=== PATIENT | male | born 1960 | race Caucasian/White ===

== ENCOUNTER 2017-12-03 05:49 | Day surgery (SDC) | payer OTHER, SELFPAY ==
[2017-12-03] VITALS (9 sets, daily range): BP systolic 105–166; BP diastolic 53–94; PULSE 47–62; RESP 16–18; TEMP 36.2–36.6; O2SAT 92–100; BMI 47.3
--- NOTE | 2017-12-03 | GALL_PTH ---
PATIENT: GISELE TORIBIO LOC: [facility] – [place] U#:[id number] AGE/SX: 57/M ROOM: RE12/03/[address]: Dr. Alexandra Robles MD : 1960 BED: DIS: 12/03/2017 SPEC #: [id number] RECD: 12/03/17 14:13 STATUS: DEBBIE DAVID #: [id number] DAVIDE: 12/03/17 00:[address]: Alexandra Robles DEPT: SURGICAL PATHOLOGY RECD BY: Lucian Cole ENTERED: 12/03/17 14:13 SP TYPE: SHELLY SAUCEDO DR: Dr. Abimael Metcalf, Tissues: Gallbladder, NOS Procedures: Surgery Specimen Level III HEADER OPERATION: Laparoscopic cholecystectomy PRE-OP DIAGNOSIS: Abnormal biliary HIDA scan; right upper quadrant pain TISSUE SUBMITTED: Gallbladder MICROSCOPIC DIAGNOSIS Gallbladder, cholecystectomy: Chronic cholecystitis. AM:francesco 12/04/17 MICROSCOPIC DESCRIPTION Slides are reviewed. GROSS DESCRIPTION Received is one container labeled with the patient's name and designated gallbladder. The specimen consists of a gallbladder measuring 7 cm in length and up to 3 cm in diameter. The external surface is pink-corrigan, smooth and glistening for the most part. Focally it is granular, hemorrhagic and contains cautery artifact. The gallbladder contains green-yellow mucoid bile. No stones are identified in the container or I the gallbladder. The mucosa is bile-stained and without any mass lesions. The gallbladder wall measures up to 0.2 cm in thickness. External Auditor sections from the gallbladder and the cystic duct are submitted in one cassette. / SJ:rg 12/03/17 TC:3 CPT: 11956
[2017-12-03 06:51] LABS: Hematocrit 38.9 % (40-54); Hemoglobin 12.7 g/dl (13.0-16.5); Mean Corp Hgb Conc 32.6 g/gl (32-36); Mean Corpuscular Hgb 27.6 pg (27.0-32.0); Mean Corpuscular Volume 84.6 fL (80-94); Mean Platelet Vol. 9.4 fl (6.2-12.0); Platelet Count 186 K/mm3 (150-450); RBC Distribution Width CV 13.7 % (11.6-14.6); RBC Distribution Width SD 41.9 fl (35.1-43.9); White Blood Count 4.3 K/mm3 (4.4-11.0)
[2017-12-03 07:01] LABS: Scan Indicated on CBC? Y/N NO
[2017-12-03] MEDS: Bupiv/Epi 0.5% Mpf 30 ML Vial (08:30)
--- NOTE | 2017-12-03 09:32 | PCM.IMDPSTOP ---
Immediate Post-Op Note Date of Procedure: 12/03/17 Primary Surgeon/Physician: Alexandra Robles licensed prosthetist/orthotist: Rosanna Slater Pre-Operative Diagnosis: biliary dyskinesia Post-Operative Diagnosis: same Surgery/Procedure Performed:: laparoscopic cholecystectomy Description of Surgical Findings:: could not do cholangiogram due to patient's body habitus, small gallbladder Estimated Blood Loss: 30 ml Specimen's removed: gallbladder and contents Type of Anesthesia:: General - Admit VTE Documentation VTE Present on Admission: Yes VTE Mechan Device Prophylaxis: SCD's
--- NOTE | 2017-12-03 09:34 | OP.PCM_ITS ---
Report of Operation Date of Procedure: 12/03/17 Pre-Operative Diagnosis: biliary dyskinesia Post-Operative Diagnosis: same Surgery/Procedure Performed:: laparoscopic cholecystectomy Description of Surgical Findings:: could not do cholangiogram due to too small a lumen and patient's body habitus, small gallbladder human resources support specialist: Rosanna Slater Type of Anesthesia:: General Anesthesiologist: Carlos Jacobs Specimen's removed: gallbladder and contents Estimated Blood Loss (mL): 30 ml Fluids Replaced: 1600 ml RL Description of Procedure: After informed consent was given, the patient was brought to the Operating Room. Appropriate time out protocol was followed. The patient was then placed under general endotracheal anesthesia. The abdomen was then prepped with a sterile surgical skin preparation and sterile surgical drapes were placed. A skin fold superior to the umbilicus was grasped with penetrating clamps and the skin and subcutaneous tissues were infiltrated with 0.5% marcaine with epinephrine. A skin incision was then made with a 15 blade scalpel. The anterior abdominal wall was elevated and a Veress needle was carefully inserted into the intraabdominal cavity. It was checked to be in the proper position with a normal saline drop test. A CO2 pneumoperitoneum was then created. Once this was achieved, then the Veress needle was removed and an 11mm trocar was placed in its stead. A 10mm laparoscope was then inserted into the trocar and careful attention was directed to the intraabdominal contents. There was no evidence of injury to any intraabdominal organs from insertion of the Veress needle or the trocar. Under direct visualization, a 5mm subxiphoid trocar and two lateral 5mm right subcostal trocars were placed. The skin and subcutaneous tissues at these sites were infiltrated with 0.5% marcaine with epinephrine prior to placement of these trocars. Attention was then directed to the right upper quadrant of the abdomen. Graspers were placed in the lateral trocars to grasp the distal aspect of the gallbladder and direct it cephalad and to grasp the gallbladder at Puckett?s pouch and direct it laterally. Dissection then began on the proximal gallbladder continuing down to the area of the triangle of Calot to bluntly dissect out the cystic duct. The periomental fat obscured this area and therefore another 5mm trocar was placed under direct visualization inferior to the subxiphoid trocar. A grasper was placed in this trocar site to retract the intraabdominal fatty tissues. The neck of the gallbladder was identified and blunt dissection continued to dissect out a segment of the cystic duct. A clip was then placed on the neck of the gallbladder. A small ductotomy was then made. The lumen was noted to be too small to pass a catheter, and therefore no IOC was done. Two clips were placed proximally and one distally and the cystic duct was then transected. The cystic artery was visualized and bluntly isolated and then two clips were placed proximally and one clip distally and then it was transected between the proximal and distal clips. The gallbladder was then from the liver bed using electrocautery and thus able to be brought out of the umbilical port via an Endobag. It was then forwarded to pathology for analysis. The liver bed was carefully examined. There was no evidence of bile leakage or bleeding. The cystic duct stump and cystic artery stump had their clips intact and there was no evidence of bile leakage or bleeding. The remainder of the abdomen was grossly normal. The CO2 was released and all trocars removed intact. The periumbilical fascia was approximated with a [id number] 0 vicryl suture. All skin incision were closed with 4-0 monocryl in a subdermal fashion. Cavilol and Steristrips were used to reinforce the skin closure. Sterile dressings were applied to all wounds. The patient was extubated and brought to the Recovery Room in stable condition. - Complications none noted - Admit VTE Documentation VTE Present on Admission: Yes VTE Mechan Device Prophylaxis: SCD's
--- NOTE | 2017-12-03 09:34 | PCM.DC.GB ---
Discharge Diet: No Restrictions Discharge Activity: Return to Normal Activity, May not drive while taking narcotic pain medications. Lifting Restrictions: no lifting greater than 20 pounds for two weeks Call your doctor if your incision/area has: Continuous Slow Oozing, Foul Smelling Discharge Call your doctor if you observe: Fever of 101 or Higher Additional Dressing/Incision Instructions:: Leave dressings in place. May get wet in shower. Do not soak - no tub baths/swimming Allergies/Adverse Reactions: Allergies No Known Allergies Allergy (Verified 11/26/17 09:31) Medications to take at Discharge Aspirin [Aspirin, Baby] 81 mg PO DAILY@0800 11/26/17 Cholecalciferol (Vitamin D3) [Vitamin D3] 1,000 unit PO DAILY 11/26/17 Esomeprazole Mag Trihydrate [Nexium] 40 mg PO DAILY 11/26/17 Lactobac 41/B.bifid,Lactis/Fos [Ultimate Probiotic-10 25 Billn] 1 each PO DAILY 11/26/17 Lidocaine/Aloe Vera [Aloe-Lidocaine 0.5% Gel] 227 gm TP PRN PRN 11/26/17 Lisinopril [Zestril] 20 mg PO DAILY 11/26/17 Loratadine [Claritin] 10 mg PO DAILY 11/26/17 Melatonin 5 mg PO QHS 11/26/17 Mometasone Furoate [Nasonex] 2 spray NASAL DAILY 11/26/17 Montelukast [Singulair] 10 mg PO DAILY 11/26/17 Naproxen [Naprosyn] 250 mg PO BID 11/26/17 Dodson-3/Dha/Epa/Dpa/Fish Oil [Dodson-3 2100 Softgel] 1 each PO DAILY 11/26/17 Sertraline HCl [Zoloft] 25 mg PO DAILY 11/26/17 Tamsulosin HCl [Flomax] 0.4 mg PO DAILY 11/26/17 Vitamin B Complex Vit C No.3 [B Complex with Vitamin C] 1 each PO DAILY 11/26/17 Primary Care Physician: Abimael Metcalf DO [Primary Care Provider] - Test Results: Test results from this visit will be discussed in further detail at your follow-up appointment, if applicable. Please Follow Up With: Alexandra Robles MD - call When: to be seen in 10-14 days, please call for date and time, thank you
--- NOTE | 2017-12-04 10:10 | PCM.HP.BLA ---
History and Physical Date of Admission: 12/03/17 Stephane Redmond 1960 ? ? REFERRING PHYSICIAN: Abimael Metcalf, DO ? CHIEF COMPLAINT: abnormal us ? HPI: The patient is a 57 year old male presents with back pain around the first of August and then noted right upper quadrant/epigastric abdominal pain. Not related to foods that he had been eating. Notes a burning sensation of the right upper quadrant. Occasional sharp pains in the area. States that he is unable to lie on the left side, as pain gets worse. Had an episode of constipation but this has resolved. Denies fevers. Now the pain is more constant in the past week. HIDA scan 10/26/17 revealed ejection fraction of 34.5% (normal is 35%) Denies biliary obstructive signs/symptoms. ? ? PAST MEDICAL HISTORY: GERD Morbid obesity BMI 47 Obstructive sleep apnea Left dmuont's neuroma ? ? PAST SURGICAL HISTORY: Colonoscopy 2010 Right ORIF wrist 2009 [place] teeth extraction Excision of lipoma Left finger pin for injury 2014 ? ? PAST INJURIES Denies head injuries, wrist and finger fracture ? ? MEDICATIONS sertraline (ZOLOFT) 25 mg tablet Take 25 mg by mouth once daily. tamsulosin ER (FLOMAX) 0.4 mg cap Take 0.4 mg by mouth. montelukast (SINGULAIR) 10 mg tablet Take 10 mg by mouth daily at bedtime. esomeprazole (NEXIUM) 40 mg capsule Take 40 mg by mouth DAILY (6 AM). melatonin 5 mg tablet Take 5 mg by mouth. loratadine (CLARITIN) 10 mg tablet Take 10 mg by mouth once daily. mometasone (NASONEX) 50 mcg/actuation nasal spray Use 2 Sprays in the nose once daily. naproxen (NAPROSYN) 250 mg tablet Take 250 mg by mouth twice daily with meals. vitamin B complex vit C no.3 (VITAMIN B COMP AND C NO.3 ORAL) Take by mouth. Cholecalciferol, Vitamin D3, (VITAMIN D-3) 2,000 unit cap Take by mouth. omega-3/dha/epa/dpa/fish oil (OMEGA-3 2100 ORAL) Take by mouth. multivitamin tablet Take 1 tablet by mouth once daily. Lactobac no.41/Bifidobact no.7 (PROBIOTIC-10 ORAL) Take by mouth. Aloe-Lact Ac-Ceramide 3,3B,6,1 1 % crea Apply to affected area. aspirin, enteric coated (ASPIRIN, ENTERIC COATED) 81 mg EC tablet Take 81 mg by mouth once daily. lisinopril (ZESTRIL, PRINIVIL) 20 mg tablet Take 20 mg by mouth once daily. ? ? ALLERGIES: Patient has no known allergies. ? ? PERSONAL HISTORY: Social History Marital status: Spouse name: Social History Denies TOB use Drug use: Unknown ? FAMILY HISTORY: No gallbladder disease in the family. ? ? REVIEW OF SYSTEMS: General: The patient denies fatigue, denies weight loss, denies weight gain, denies feeling hot, and denies feelings of cold. Eyes: The patient denies glaucoma, denies eye injury/surgery, wears glasses or contacts. Ear/Nose/Throat: The patient NOTES allergies, denies hayfever, denies ear infections, and denies bloody noses. Cardiovascular: The patient denies chest pain, denies heart disease, denies high blood pressure,denies cardiac stent, denies prior heart attack, denies irregular heart beat, denies high cholesterol, denies poor circulation, denies heart failure, other cardiac issues, denies claudication, denies cold feet, denies peripheral arterial stent. Respiratory: The patient denies tuberculosis, denies pneumonia, denies frequent cough, denies pulmonary embolism, denies shortness of breath, and denies coughing up blood. Gastrointestinal: The patient denies difficulty swallowing, NOTES acid reflux, denies ulcers, denies vomiting, denies jaundice/hepatitis, NOTES gallbladder problems, denies black or tarry stools, denies hemorrhoids, denies bleeding from rectum, denies diverticulitis, denies constipation, denies diarrhea, denies loss of stool control, and denies hernias. Kidney/Bladder: The patient denies kidney stones, denies urine infections, and denies bloody urine. Skin: The patient denies a history of skin cancer, denies bleeding/changing moles, and denies a history of skin rash. Neurologic: The patient denies a history of epilepsy/convulsions, denies headaches, denies head/spinal injuries, and denies stroke/TIA. Psychiatric: The patient denies psychiatric medications, denies depression, and denies voices, denies substance abuse. Endocrine: The patient denies thyroid disorders, denies diabetes, and denies hormonal problems. Hematologic: The patient denies a history of bruising, denies bleeding, and denies anemia, denies blood clots. Infections: The patient denies a history of measles and mumps, denies rheumatic fever, and denies sexually transmitted diseases. Musculoskeletal: The patient denies back pain/injury, denies back problems, denies sciatica, denies knee/foot trouble, denies arthritis, or denies gout. ? PHYSICAL EXAMINATION: General: The patient is 57 year old male, well nourished, well hydrated in no acute distress. The patient is oriented to time, place, and person. VITALS: Blood pressure 150/70, pulse 66, height 177.8 cm (5' 10), weight (!) 149.2 kg (329 lb). Body mass index is 47.21 kg/m?. Head Normocephalic. EOM intact with sclera clear and no icterus noted. Wearing glasses. Mouth with mucus membranes moist. Neck - supple with no jugular venous distention noted. Trachea is midline. No carotid bruits noted. Lungs clear to auscultation. Normal breath sounds. No rales/rhonchi/wheezing noted. No labored breathing noted, such as retractions. Heart normal S1 and S2 auscultated. No rubs/clicks/murmurs noted. Regular rate. Abdomen soft and benign. Normal bowel sounds. Tender in right upper quadrant and epigastrium, no peritoneal signs noted. Difficult to determine if any masses or organomegaly due to body habitus. Extremities no calf tenderness noted. No pitting edema noted. Skin normal skin integrity. Neurological gait normal, no focal deficits noted Psych calm and appropriate ? ? IMPRESSION: biliary colic, low EF by NM HIDA scan ? PLAN: I have discussed the above with the patient and his who is present with him. I have offered laparoscopic cholecystectomy, possible cholangiograms However, I have counseled patient that this may not entirely alleviate his symptoms, as his ejection fraction is only slightly below normal at 34.5%. However, his symptoms can be attributed to biliary colic. I have explained the procedure to the patient. I have counseled the patient as to the risks of the procedure, including but not limited to: infection, bleeding, injury to any blood vessels/nerves, scar tissue, injury to any intraabdominal organs, injury to bowel/bladder, injury to the common bile duct/biliary tree, bile leakage, intraabdominal abscess/bleeding, hernias at incisional sites, wound infections, non resolution of symptoms, complications of anesthesia, etc. the patient understands. The patient wishes to proceed. I have answered all questions to the patients satisfaction and the patient has no further questions. . Diagnoses: (R94.8) Abnormal biliary HIDA scan (primary encounter diagnosis) (R10.11) Right upper quadrant abdominal pain (E66.01) Morbid obesity (HCC)
== END 2017-12-03 15:56 | disposition home or self-care (01) ==
LOC: SDC 05:49 → AC 05:51
PROVIDERS: Anesthesiology; Family Provider Family Medicine; PCP Family Medicine; Visit Provider Surgery
PROC: (CPT 47610; principal; 2017-12-03 07:10)
DX: K81.1 Chronic cholecystitis (principal); F41.9 Anxiety disorder, unspecified; K21.9 Gastro-esophageal reflux disease without esophagitis; K58.9 Irritable bowel syndrome, unspecified; I10 Essential (primary) hypertension; Z79.899 Other long term (current) drug therapy; Z79.82 Long term (current) use of aspirin; G25.81 Restless legs syndrome; G47.33 Obstructive sleep apnea (adult) (pediatric); E66.01 Morbid (severe) obesity due to excess calories; Z68.42 Body mass index [BMI] 45.0-49.9, adult; Z71.3 Dietary counseling and surveillance
CPT/HCPCS: 47562; 36415; 85027; 88304; 93005; J7120

== ENCOUNTER 2022-02-06 16:30 | Outpatient (RCR) | payer OTHER, SELFPAY ==
--- NOTE | 2021-12-26 17:39 | HP.PTEVAL_ITS ---
Patient's Visit Information GISELE TORIBIO is a 61 year old M referred to Physical Therapy by Dr. Abimael Metcalf DO with a diagnosis of R shoulder pain, biceps tendonitis. Date of Evaluation: 12/26/21 Physical Therapist: Raz Bridges, DPT, OCS, CSCS - Visit Plan Frequency: 2-3x /Week Duration: 4-6 Weeks Plan: 3x/week to start for US nonthermal to R biceps tendon, grade 1-2 mobs, ensure activitiy modificaiton, progress to Rc and postural strength and pec stretches. ice as needed. - Subjective R arm and shoulder hurt. It has hurt for a couple years on and off but much worse in the last month where it aches at rest. Intermittent previously but more constant now in anterior lateral shoulder and upper arm. it gets to 5/10. Lifting [place] or behind back can make him worse. Not sure why last month is worse. No numbness or tingling in arm. it is often painful at rest. Sleep is interrupted if he rolls on right side. Is on acetominophen and naproxen for hand arthritis and takes extra naproxen which helps. 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 Drivinjg is not a big problem. Basic ADLs are getting done, but putting belt on behind him can hurt. Hobbies is gardening and is able to be done but it hurts. None as far as exercise goes. Wants to rodriguez and is right handed and not surre he could hold the gun. - Pain R shoulder Pain Intensity (Out of 10): 2 Pain Intensity Range: 0, 5 - Objective Posture is forward head and anterior scap. Biceps tendon max tender R at groove and subscap min tender. + HK and neer impingement test R. + speeds and bicep test, + pain resisted supination R. - ext rotation lag and drop arm test. - sulcus test. - apprehension test. AROM R shoulder WFL but pain end range flexion, and IR/ER. strength is 4/5 R shoulder IR/ER with pain on IR, 4+ biceps and triceps and pain with biceps R. wrist and hand 4/5 without pain except supination R. reflexes 2/3 biceps and triceps. Sensation WNL to gross light touch in UE. - Balance/Special Test Scores Quick DASH Score: 36.3625 - Goals Goal 1:: Pain free at rest Goal Time Frame: 2 Weeks Goal 2:: LT: Fiull UE AROM r without increased pain Goal 3:: I approp management /HEP for shoulder pain Goal Time Frame: 4-6 Weeks Goal 4:: Patient feel 80% improved in overall pain at 1/10 at worst. Goal Time Frame: 4-6 Weeks Goal 5:: Quickdash score of 15 or less Goal Time Frame: 4-6 Weeks - Rehabilitation Potential Physical Therapy Diagnosis: r biceps tendonitis Rehabilitation Potential: Good - Anticipated Interventions Patient/Client Instruction: Educate patient on: Condition, Plan of Care For the Purpose of:: To decrease pain, To increase ROM, To improve muscle performance and motor function, To increase tolerance to activity/condition/position, To improve ability of physical actions for home/community/work/leisure Therapeutic Exercise to Include: Strength training, Passive ROM, Active ROM, Scapular Strength/Stabilization For the Purpose of:: To decrease pain, To increase ROM, To improve muscle performance and motor function, To increase tolerance to activity/condition/position, To improve gait and locomotor functions Manual Therapy Techniques to Include: Mobilization, Passive ROM, Soft tissue mob ilization For the Purpose of:: To decrease pain, To improve nutrient delivery to tissue, To improve muscle performance and motor function Cryotherapy (ice pack, ice massage): Yes Ultrasound (thermal/non thermal): Yes For the Purpose of:: To decrease pain Thank you for the opportunity to evaluate your patient. For Medicare and Medicare HMO plans, please review the plan of care and approve it. It will need to be FAXED BACK to us at [phone] for Medicare purposes. For Medicare only, by signing this I certify the plan of care. Please let me know if there are questions or concerns regarding this plan of care. Physician Signature: Date:
--- NOTE | 2022-03-24 08:17 | HP.PTDCSUM ---
It has been my pleasure to treat GISELE TORIBIO referred by Dr. Abimael Metcalf DO, with the diagnosis of R shoulder pain, biceps tendonitis for a total of 9 visit(s). Discharge Date: 02/06/22 Please see the following information for a summary of their discharge status. Subjective: Doing well. It hurts at times. Slouching can hurt. Pain this week has been 2/10 while doing something and for short duration to an hour. Sleeping is OK. HEP going well daily 3x20. Scheduled to see in March. R shoulder Pain Intensity (Out of 10): 3 % Improvement: 90 Objective/Function: Full aROM, just some slight discomfort transiently at end range of IR adn flexion. strength 4 R er flexion and abd and 4+ L, others 4+ symmetrically. Goal 1:: Pain free at rest Goal Progress: Goal Met Goal 2:: LT: Fiull UE AROM r without increased pain Goal Progress: Goal Met Goal 3:: I approp management /HEP for shoulder pain Goal Progress: Goal Met Goal 4:: Patient feel 80% improved in overall pain at 1/10 at worst. Goal Progress: Progressing Goal 5:: Quickdash score of 15 or less Goal Progress: Progressing Plan: d/c to HEP If there are questions or concerns regarding this patient's physical therapy, please feel free to call me at [phone]. Thank you for the referral of this patient. Sincerely, Raz Bridges, DPT, OCS, CSCS Balance/Gait/Functional tests - Balance/Special Test Scores Quick DASH Score: 20.4525
== END 2022-02-06 19:00 | disposition home or self-care (01) ==
LOC: PT 16:30
PROVIDERS: PCP Family Medicine; Referring Provider Family Medicine; Visit Provider Family Medicine
DX: M75.21 Bicipital tendinitis, right shoulder (principal); M75.51 Bursitis of right shoulder; M75.81 Other shoulder lesions, right shoulder
CPT/HCPCS: 97035; 97110; 97161; 97164; 97530

== ENCOUNTER → 2024-08-25 | Outpatient (CLI) | payer OTHER, SELFPAY ==
[2024-08-25 17:50] LABS: Absolute Lymphocyte Count 2.11 X10^3/uL (0.83-4.51); Absolute Neutrophil Count 2.8 X10^3/uL (2.0-7.7); Basophil# 0.03 X10^3/uL; Basophil% 0.6 % (0-1); Eosinophil# 0.14 X10^3/uL; Eosinophils% 2.6 % (0-5); Hematocrit 39.4 % (40-54); Hemoglobin 13.1 g/dL (13.0-16.5); Lymphocyte # 2.11 X10^3/ul (0.83-4.51); Lymphocyte % 38.8 % (19-41); Mean Corp Hgb Conc 33.2 g/dL (32-36); Mean Corpuscular Hgb 29.3 pg (27.0-32.0); Mean Corpuscular Volume 88.1 fL (80-94); Monocyte# 0.37 X10^3/uL; Monocyte% 6.8 % (0-10); NRBC Flagged by Analyzer 0 % (0-5); Neutrophil # 2.78 X10^3/uL (2.7-7.7); Platelet Count 214 K/mm3 (150-450); RBC Distribution Width CV 11.8 % (11.6-14.6); RBC Distribution Width SD 37.8 fl (35.1-43.9); Red Blood Count 4.47 M/mm3 (4.6-6.2); White Blood Count 5.4 K/mm3 (4.4-11.0)
[2024-08-25 18:16] LABS: Anion Gap 11 (5-15); BUN 19 mg/dL (4-19); BUN/Creat Ratio 15.6 RATIO (10-20); Calcium,Total 9.6 mg/dL (7.6-11.0); Carbon Dioxide 21.8 mmol/L (21.0-32.0); Chloride 106 mmol/L (98-108); Creatinine, Serum 1.24 mg/dL (0.70-1.20); EST Glomerular Filtration Rate 65 (>60); Glucose 113 mg/dL (70-99); Potassium 4.3 mmol/L (3.3-5.1); Sodium Level 139 mmol/L (133-145)
== END | disposition home or self-care (01) ==
LOC: MTLAB 16:01
PROVIDERS: PCP Family Medicine; Referring Provider Specialist; Visit Provider Specialist
DX: Z01.818 Encounter for other preprocedural examination (principal); Z01.810 Encounter for preprocedural cardiovascular examination
CPT/HCPCS: 36415; 80048; 85025

== ENCOUNTER 2024-10-05 08:23 | Outpatient (RCR) | payer OTHER, SELFPAY ==
[2024-10-05 10:26] VITALS: BP 139/84; PULSE 61; RESP 18; TEMP 36.4
--- NOTE | 2024-10-05 12:10 | PCM.WC.HP ---
History of Present Illness Date of Service: 10/05/24 Chief Complaint: Right calf nonhealing wound History of Wound: This is a 63-year-old white male who states when he was a teenager he was in an [place] and got a thorn in his right calf and over the years part of it had come out but he feels like it is never healed. Though then he says about 3 months ago he felt that this really developed into something and now he wants to have a total knee and they will not touch him until he gets this taking care of. It is a scabbed area with some erythema around it it is sore to palpate and pressing down hard no foreign body can be felt by palpation. Patient has the certain insurance that were not allowed to debride on the first visit we can only look and see. [facility] Home Medications Medication Instructions Recorded Last Taken Type Lactobacillus 1 ea PO DAILY 11/26/17 Unknown History 41-B.animalis,bifid-FOS 111 mg (25 billion cell) capsule (Ultimate Probiotic-10) aspirin 81 mg chewable tablet 81 mg PO DAILY@0800 11/26/17 Unknown History cholecalciferol (vitamin D3) 25 1,000 unit PO DAILY 11/26/17 Unknown History mcg (1,000 unit) capsule (Vitamin D3) esomeprazole magnesium 40 mg 40 mg PO DAILY 11/26/17 12/03/17 04:45 History capsule,delayed release (Nexium) 40 MG lidocaine-aloe vera 0.5 % topical 227 g TP PRN PRN CREAM 11/26/17 Unknown History gel lisinopril 20 mg tablet 20 mg PO DAILY 11/26/17 12/03/17 04:45 History 20 MG loratadine 10 mg tablet (Allergy 10 mg PO DAILY 11/26/17 Unknown History Relief (loratadine)) melatonin 5 mg capsule 5 mg PO QHS 11/26/17 Unknown History mometasone 50 mcg/actuation nasal 2 spray DAILY 11/26/17 Unknown History spray (Nasonex) montelukast 10 mg tablet 10 mg PO DAILY 11/26/17 Unknown History naproxen 250 mg tablet 250 mg PO BID 11/26/17 Unknown History omega-3 1,050 [id number]-[id number]-fish 1 ea PO DAILY 11/26/17 Unknown History oil 1,200 mg capsule (Rio-3 2100) sertraline 25 mg tablet (Zoloft) 25 mg PO DAILY 11/26/17 Unknown History tamsulosin 0.4 mg capsule 0.4 mg PO DAILY 11/26/17 Unknown History vitamin B comp and C no.3 15 mg-10 1 ea PO DAILY 11/26/17 Unknown History mg-50 mg-5 mg-300 mg capsule (B Complex Plus Vitamin C) hydrocodone-acetaminophen 5-325mg 1 ea PO Q6H PRN PRN Pain 5 days 12/03/17 Unknown Rx 5mg-325mg #20 tabs Allergy/AdvReac Type Severity Reaction Status Date / Time No Known Allergies Allergy Verified 11/26/17 09:31 Social History Smoking Status: Former smoker ROS Constitutional Constitutional: Reports systems reviewed and no addt'l complaints, except as documented Eyes Eyes: Reports systems reviewed and no addt'l complaints, except as documented ENT HEENT: Reports systems reviewed and no addt'l complaints, except as documented Cardiovascular Cardiovascular: Reports systems reviewed and no addt'l complaints, except as documented Respiratory/Chest Respiratory/Chest: Reports systems reviewed and no addt'l complaints, except as documented Gastrointestinal Gastrointestinal: Reports systems reviewed and no addt'l complaints, except as documented Genitourinary Genitourinary: Reports systems reviewed and no addt'l complaints, except as documented Musculoskeletal Musculoskeletal: Reports systems reviewed and no addt'l complaints, except as documented Integumentary Integumentary: Reports wounds Neurologic Neurologic: Reports systems reviewed and no addt'l complaints, except as documented Psychiatric Psychiatric: Reports systems reviewed and no addt'l complaints, except as documented Endocrine Endocrinology: Reports systems reviewed and no addt'l complaints, except as documented Hematologic/Lymphatic Hematologic/Lymphatic: Reports systems reviewed and no addt'l complaints, except as documented Allergic/Immunologic Allergic/Immunologic: Reports systems reviewed and no addt'l complaints, except as documented Vital Signs Vital Signs Vital Signs: 10/05/24 10:26 Temperature 97.6 F L Temperature Source Temporal Pulse Rate 61 Respiratory Rate 18 Blood Pressure 139/84 H Blood Pressure Mean 102 Blood Pressure Source Monitor Blood Pressure Position Sitting Blood Pressure Location Right Arm Oxygen Delivery Method Room Air Physical Exam Const oriented x3 General Appearance: cooperative Exam Limitations: no limitations HEENT normocephalic Head and Scalp: normal to inspection Face and Sinus: normal facial exam Nose: external nose normal General Ear: hearing grossly impaired External Ear: external ears normal Mouth: oral and palatal mucosa normal Eyes PERRL General Eye: normal appearance of both eyes Neck full ROM General: normal visual inspection Resp normal respiratory effort Effort and Inspection: able to speak in complete sentences Auscultation: clear to auscultation bilaterally Cardio regular rate and regular rhythm Palpation: normal PMI Rate: regular rate Rhythm: regular rhythm GI Auscultation: normoactive bowel sounds Palpation: soft and no hepatosplenomegaly external exam normal Back/Spine Cervical Spine: cervical ROM normal Thoracic Spine / Upper Back: normal to inspection Lumbar Spine / Lower Back: normal to inspection Extremity normal to inspection General Extremity: normal exam except as noted Skin Wound Narrative: Scabbed wound on right lateral calf with darkened erythema surrounding the perimeter Neuro oriented x3 Psych Appearance: grossly normal Speech: normal speech Thought Content: normal thought content Judgement: judgement good Debridement Note Debridement Note No debridement was completed: No debridement was completed today Post-Debridement Measurements and Additional Note: Post-Debridement Measurements/Treatment VISHNU - Nurse 1 - General Ulcer Assessment Start: 10/05/24 10:19 Freq: Status: Active Protocol: LUIS ARMANDO Activity Type Activity Date Activity User E-sign Co-sign Detail Recorded Client Recorded Date Recorded By Document 10/05/24 10:26 DL [id number] 10/05/24 10:32 DL 10/05/24 10:26 - Today's Visit Information Type of service Initial Visit Arrival Mode Ambulatory Accompanied by self Patient Identification Verified (Name & Yes ) Safety Precautions Fall Prevention Vital Signs Temperature (97.8 F-99.1 F) 97.6 F L Temperature Source Temporal Pulse Rate (60-100) 61 Pulse Location Monitor Respiratory Rate (12-18) 18 Respiratory rate source Observation Oxygen Delivery Method Room Air Blood Pressure (90/60-120/80) 139/84 H Blood Pressure Mean 102 Source Monitor Position Sitting Blood Pressure Location Right Arm History Since Last Visit- (Skip if this is Patient's initial visit) Has dressing in place as prescribed Yes Has compression in place as prescribed Yes Has offloadiing in place as prescribed Yes Experienced any changes in pain level or Yes management Left Footwear Regular Shoe Right Footwear Regular Shoe Pain Scale: 0-10 Numeric Is Patient Pain Free? Yes - Nurse 1 - General Ulcer Measurement Start: 10/05/24 10:19 Freq: Status: Active Protocol: Activity Type Activity Date Activity User E-sign Co-sign Detail Recorded Client Recorded Date Recorded By Document 10/05/24 10:26 RAFAEL [id number] 10/05/24 10:32 DL 10/05/24 10:26 Wound Center Nurse 1 #1 R Calf -Current Size (cm) - Length 0.1 -Current Size (cm) - Width 0.1 -Current Size (cm) - Depth 0.1 -Total Square Cm 0.01 -Date of Last Picture (Recall this 10/05/24 field) -Photo Taken Yes -Epithelialization Large 67-100% -Tunneling No -Undermining/Tunneling No -Circular Undermining No -Exudate Amt None Present -Wound Margin Flat & Intact -Granulation Amt Large (67-100%) -Granulation Quality Hyper- granulation -Slough/Fibrin No -Texture (Za-wound Skin Appearance) Assessed -Moisture (Za-wound Skin Appearance) Assessed -Color (Za-wound Skin Appearance) Assessed -Temperature (Za-wound Skin No Abnormality Appearance) (Pt Warm) -Tenderness on Palpation (Za-wound No Skin Appearance) -Ulcer Cleansing Soap and Water -Anesthetic Used 5% Lidocaine Gel Right Calf (cm) 49 Right Ankle (cm) 27 - Nurse 2 - General Ulcer CM Notes Start: 10/05/24 10:19 Freq: Status: Active Protocol: Activity Type Activity Date Activity User E-sign Co-sign Detail Recorded Client Recorded Date Recorded By Document 10/05/24 10:39 [facility] [id number] 10/05/24 10:44 [facility] 10/05/24 10:39 Wound Center Nurse 2 #1 R Calf -Time 10:39 -Procedure Performed No -Post Debridement (cm) - Length 0.3 -Post Debridement (cm) - Width 0.8 -Post Debridement (cm) - Depth 0.2 -Total Square (Post) (cm) 0.24 -Area of Debridement (cm) - Length 0.3 -Area of Debridement (cm) - Width 0.8 -Total Square (Area) (cm) 0.24 -Wound/Ulcer Outcome Not Healed -Bleeding Controlled with NA -Wound Comment(s) need to apply to insur for prior auth for debridement first Pain Scale: 0-10 Numeric Is Patient Pain Free? Yes WC - Nurse 3 - General Ulcer D/C NN Start: 10/05/24 10:19 Freq: Status: Active Protocol: Activity Type Activity Date Activity User E-sign Co-sign Detail Recorded Client Recorded Date Recorded By Document 10/05/24 10:52 DL [id number] 10/05/24 10:53 DL 10/05/24 10:52 Wound Care Center Nurse 3 #1 R Calf -Ulcer Cleansing Rinsed/ Irrigated with Saline -Foul Odor after Cleansing No -Primary Dressing Applied Silicone Border Foam 4x4 -Other Dressing xeroform -Silicone Border Foam 4x4 1 -Wound Comment(s) Dressing applied per K Tang. RLE -Tubular Bandage Double Layer -Size of Tubigrip Used Size F -Size F ($) 2 Treatment Response Procedure Tolerated Well Pain Scale: 0-10 Numeric Is Patient Pain Free? Yes WC - Visit Discharge Discharge Condition Stable Ambulatory Status Ambulatory Transportation Private Auto Assessment/Plan Assessment/Plan (1) Nonhealing ulcer of right lower leg: CODE(S): L97.919 - Non-pressure chronic ulcer of unspecified part of right lower leg with unspecified severity QUALIFIERS: Non-pressure ulcer stage: limited to breakdown of skin Qualified Code(s): L97.911 - Non-pressure chronic ulcer of unspecified part of right lower leg limited to breakdown of skin PLAN: Wash leg with Hibiclens or antibacterial soap and water pat dry apply Xeroform to wound base and cover with [place] SAP foam dressing every day. Follow-up in 1 week (2) Infected wound: CODE(S): T14.8XXA - Other injury of unspecified body region, initial encounter; L08.9 - Local infection of the skin and subcutaneous tissue, unspecified (3) Nonhealing nonsurgical wound: CODE(S): T14.8XXA - Other injury of unspecified body region, initial encounter
--- NOTE | 2024-10-06 10:58 | WC ---
PHOTO 10/05/24 RIGHT CALF
== END 2024-10-10 23:59 | disposition home or self-care (01) ==
LOC: WC 08:23
PROVIDERS: PCP Family Medicine; Visit Provider Nurse Practitioner
DX: L97.211 Non-pressure chronic ulcer of right calf limited to breakdown of skin (principal); S80.8 Other superficial injuries of lower leg; W45.8XXS Other foreign body or object entering through skin, sequela; Z79.82 Long term (current) use of aspirin; Z79.899 Other long term (current) drug therapy; Z87.891 Personal history of nicotine dependence
CPT/HCPCS: 99213; G0463

== ENCOUNTER 2024-11-09 11:00 | Outpatient (RCR) | payer OTHER, SELFPAY ==
[2024-10-12 10:38] VITALS: BP 149/76; PULSE 62; RESP 18; TEMP 36.4
--- NOTE | 2024-10-12 12:26 | PN.PCM_ITS ---
History of Present Illness Date of Service: 10/12/24 Chief Complaint: Right calf nonhealing wound History of Wound: This is a 63-year-old white male who states when he was a teenager he was in [place] and got a thorn in his right calf and over the years part of it had come out but he feels like it is never healed. Though then he says about 3 months ago he felt that this really developed into something and now he wants to have a total knee and they will not touch him until he gets this taking care of. It is a scabbed area with some erythema around it it is sore to palpate and pressing down hard no foreign body can be felt by palpation. Patient has the certain insurance that were not allowed to debride on the first visit we can only look and see. Progress of Wound: So the Xeroform helps soften up the hardened crusted scab over wound we deroofed today with a scalpel #15 blade and forceps for thick tenacious debris. Tolerated well. Irrigated with normal saline and cultured area. Will call back with culture results next week in the meantime he is to pack the area with Aquacel silver and moisten it and cover with a foam dressing and he is to wear double layer Tubigrip's or a single-layer Tubigrip with his compression stocking over top and he can follow-up in 2 weeks. Subjective Subjective Patient is agreeable to plan Objective Data Objective Data Will check for infection by getting cultures and we deroofed the area for thick bloody discharge fat layer and apparent. Vital Signs: Vital Signs Temp Pulse Resp BP 97.6 F L 62 18 149/76 H 10/12/24 10:38 10/12/24 10:38 10/12/24 10:38 10/12/24 10:38 Physical Exam Const oriented x3 General Appearance: cooperative Exam Limitations: no limitations HEENT normocephalic Head and Scalp: normal to inspection Face and Sinus: normal facial exam Nose: external nose normal General Ear: hearing grossly impaired External Ear: external ears normal Mouth: oral and palatal mucosa normal Eyes PERRL General Eye: normal appearance of both eyes Neck full ROM General: normal visual inspection Resp normal respiratory effort Effort and Inspection: able to speak in complete sentences Auscultation: clear to auscultation bilaterally Cardio regular rate and regular rhythm Palpation: normal PMI Rate: regular rate Rhythm: regular rhythm GI Auscultation: normoactive bowel sounds Palpation: soft and no hepatosplenomegaly external exam normal Back/Spine Cervical Spine: cervical ROM normal Thoracic Spine / Upper Back: normal to inspection Lumbar Spine / Lower Back: normal to inspection Extremity normal to inspection General Extremity: normal exam except as noted Skin Wound Narrative: Scabbed wound on right lateral calf with darkened erythema surrounding the perimeter Neuro oriented x3 Psych Appearance: grossly normal Speech: normal speech Thought Content: normal thought content Judgement: judgement good Debridement Note Debridement Note Wound debrided: Right lateral lower leg ulcer nonpressure Type of Debridement: Excisional debridement Anesthesia Used: 5% Lidocaine Gel Depth: Down to and including healthy tissue and in the subcutaneous layer Percentage of wound debrided: 100 Instrument Used: 7mm curette, #15 blade and Forceps Tissue Removed: Fat layer and fibrin and devitalized tissue Severity: Fat Layer Exposed Amount of bleeding with debridement: Mild Bleeding Controlled with: Compression and gauze Patient tolerated procedure: Patient tolerated procedure well Post-Debridement Measurements and Additional Note: Post-Debridement Measurements/Treatment - Nurse 1 - General Ulcer Assessment Start: 10/12/24 10:37 Freq: Status: Active Protocol: [email or web address].MAURICIO Activity Type Activity Date Activity User E-sign Co-sign Detail Recorded Client Recorded Date Recorded By Document 10/12/24 10:38 DL [id number] 10/12/24 10:46 DL 10/12/24 10:38 - Today's Visit Information Type of service Follow-up Visit (Physician/PLASTICS SUPERVISOR ) Arrival Mode Ambulatory Transfer Assistance None Patient Identification Verified (Name & Yes ) Patient Requires Transmission-Based No Precautions Vital Signs Temperature (97.8 F-99.1 F) 97.6 F L Temperature Source Temporal Pulse Rate (60-100) 62 Pulse Location Monitor Respiratory Rate (12-18) 18 Respiratory rate source Observation Blood Pressure (90/60-120/80) 149/76 H Blood Pressure Mean (mm Hg) 100 Source Monitor History Since Last Visit- (Skip if this is Patient's initial visit) Have you changed medications since your No last visit? Any new allergies or adverse reactions No Had a fall/change in ADL's that may No increase risk of falls Signs or symptoms of abuse and/or No neglect since last visit Have you been in the hospital since your No last visit? Has dressing in place as prescribed No Has compression in place as prescribed Yes Has offloadiing in place as prescribed N/A Experienced any changes in pain level or No management Pain Scale: 0-10 Numeric Is Patient Pain Free? Yes - Nurse 1 - General Ulcer Measurement Start: 10/12/24 10:37 Freq: Status: Active Protocol: Activity Type Activity Date Activity User E-sign Co-sign Detail Recorded Client Recorded Date Recorded By Document 10/12/24 10:38 DL [id number] 10/12/24 10:46 DL 10/12/24 10:38 Wound Center Nurse 1 #1 R Calf -Current Size (cm) - Length 0.5 -Current Size (cm) - Width 0.6 -Current Size (cm) - Depth 0.1 -Total Square Cm 0.30 -Photo Taken Yes -Exudate Amt Small -Exudate Type Serosanguineous -Wound Margin Distinct, Outline Attached -Granulation Amt Large (67-100%) -Granulation Quality [place] -Necrosis Amt None Present (0 %) -Structure Exposed N/A -Texture (Za-wound Skin Appearance) Scarring -Moisture (Za-wound Skin Appearance) No Abnormality -Color (Za-wound Skin Appearance) No Abnormality -Temperature (Za-wound Skin No Abnormality Appearance) (Pt Warm) -Tenderness on Palpation (Za-wound No Skin Appearance) -Ulcer Cleansing Soap and Water -Foul Odor after Cleansing No -Anesthetic Used 5% Lidocaine Gel Right Calf (cm) 48.5 Right Ankle (cm) 24.4 - Nurse 2 - General Ulcer CM Notes Start: 10/12/24 10:37 Freq: Status: Active Protocol: Activity Type Activity Date Activity User E-sign Co-sign Detail Recorded Client Recorded Date Recorded By Document 10/12/24 11:25 [facility] [id number] 10/12/24 11:34 [facility] 10/12/24 11:25 Wound Center Nurse 2 #1 R Calf -Time 11:25 -Correct Patient Yes -Correct Side, Site, Position Yes -Correct Procedure Yes -Procedure Performed Yes -Type of Procedure Debridement -Clinical Debridement Muscle / Fascia -Tissue Removed Muscle,Fascia -Post Debridement (cm) - Length 0.7 -Post Debridement (cm) - Width 1 -Post Debridement (cm) - Depth 0.3 -Total Square (Post) (cm) 0.7 -Area of Debridement (cm) - Length 0.7 -Area of Debridement (cm) - Width 1 -Total Square (Area) (cm) 0.7 -Tunneling No -Undermining/Tunneling No -Circular Undermining No -Wound/Ulcer Outcome Not Healed -Ulcer Cleansing Rinsed/ Irrigated with Saline -Foul Odor after Cleansing No -Bioengineered Tissue No -Bleeding Controlled with Pressure -Treatment Response Procedure Tolerated Well -Debridement - Muscle / Fascia, 1st Yes 20sq cm Pain Scale: 0-10 Numeric Is Patient Pain Free? Yes - Nurse 3 - General Ulcer D/C NN Start: 10/12/24 10:37 Freq: Status: Active Protocol: Activity Type Activity Date Activity User E-sign Co-sign Detail Recorded Client Recorded Date Recorded By Document 10/12/24 11:41 [id number] 10/12/24 11:42 10/12/24 11:41 Wound Care Center Nurse 3 #1 R Calf -Ulcer Cleansing Not Cleansed -Foul Odor after Cleansing No -Primary Dressing Applied Aquacel AG 4x4, Silicone Border Foam 4x4 -Aquacel AG 4x4 1 -Silicone Border Foam 4x4 1 RLE -Lotion applied to leg before No compression wrap -Tubular Bandage Single Layer -Size of Tubigrip Used Size F -Size F ($) 1 Pain Scale: 0-10 Numeric Is Patient Pain Free? Yes - Visit Discharge Discharge Condition Stable Ambulatory Status Ambulatory Transportation Private Auto Assessment/Plan Assessment/Plan (1) Nonhealing ulcer of right lower leg: CODE(S): L97.919 - Non-pressure chronic ulcer of unspecified part of right lower leg with unspecified severity QUALIFIERS: Non-pressure ulcer stage: limited to breakdown of skin Qualified Code(s): L97.911 - Non-pressure chronic ulcer of unspecified part of right lower leg limited to breakdown of skin PLAN: Wash leg with Hibiclens or antibacterial soap and water pat dry. Apply Aquacel silver moistened into wound base and cover with a foam dressing single- layer to be with his compression stocking over top Will call with culture results and he can follow-up in 2 weeks. (2) Infected wound: CODE(S): T14.8XXA - Other injury of unspecified body region, initial encounter; L08.9 - Local infection of the skin and subcutaneous tissue, unspecified (3) Nonhealing nonsurgical wound: CODE(S): T14.8XXA - Other injury of unspecified body region, initial encounter
--- NOTE | 2024-10-12 15:30 | WC ---
PHOTO 10/12/24 RIGHT CALF
[2024-10-26 10:27] VITALS: BP 149/70; PULSE 63; RESP 15; TEMP 36.1
--- NOTE | 2024-10-26 12:13 | PCM.WC.PN ---
History of Present Illness Date of Service: 10/26/24 Chief Complaint: Right calf nonhealing wound History of Wound: This is a 63-year-old white male who states when he was a teenager he was in an [place] and got a thorn in his right calf and over the years part of it had come out but he feels like it is never healed. Though then he says about 3 months ago he felt that this really developed into something and now he wants to have a total knee and they will not touch him until he gets this taking care of. It is a scabbed area with some erythema around it it is sore to palpate and pressing down hard no foreign body can be felt by palpation. Patient has the certain insurance that were not allowed to debride on the first visit we can only look and see. Progress of Wound: So the Xeroform helps soften up the hardened crusted scab over wound we deroofed with a scalpel #15 blade and forceps for thick tenacious debris. Tolerated well. Irrigated with normal saline . Today we did culture will call back with culture results next week in the meantime he is to pack the area with AquaceL extra and moisten it and cover with a foam dressing and he is to wear double layer Tubigrip's or a single-layer Tubigrip with his compression stocking over top and he can follow-up in 1 weeks. Subjective Subjective Patient is very compliant with treatments and is doing well has no complaints the whole and the area is smaller this week flesh colored skin around the area no sign of infection noted no odor also Objective Data Objective Data Again the area looks good no sign of infection the measurements are smaller than last 2 weeks ago doing well denies any pain we will culture and send off and see if there is anything growing. Vital Signs: Vital Signs Temp Pulse Resp BP 97.0 F L 63 15 149/70 H 10/26/24 10:27 10/26/24 10:27 10/26/24 10:27 10/26/24 10:27 Physical Exam Const oriented x3 General Appearance: cooperative Exam Limitations: no limitations HEENT normocephalic Head and Scalp: normal to inspection Face and Sinus: normal facial exam Nose: external nose normal General Ear: hearing grossly impaired External Ear: external ears normal Mouth: oral and palatal mucosa normal Eyes PERRL General Eye: normal appearance of both eyes Neck full ROM General: normal visual inspection Resp normal respiratory effort Effort and Inspection: able to speak in complete sentences Auscultation: clear to auscultation bilaterally Cardio regular rate and regular rhythm Palpation: normal PMI Rate: regular rate Rhythm: regular rhythm GI Auscultation: normoactive bowel sounds Palpation: soft and no hepatosplenomegaly external exam normal Back/Spine Cervical Spine: cervical ROM normal Thoracic Spine / Upper Back: normal to inspection Lumbar Spine / Lower Back: normal to inspection Extremity normal to inspection General Extremity: normal exam except as noted Skin Wound Narrative: Scabbed wound on right lateral calf with darkened erythema surrounding the perimeter Neuro oriented x3 Psych Appearance: grossly normal Speech: normal speech Thought Content: normal thought content Judgement: judgement good Debridement Note Debridement Note Wound debrided: Right lateral lower leg ulcer nonpressure Type of Debridement: Excisional debridement Anesthesia Used: 5% Lidocaine Gel Depth: Down to and including healthy tissue and in the subcutaneous layer Percentage of wound debrided: 100 Instrument Used: 5mm curette Tissue Removed: Fat layer and fibrin Severity: Fat Layer Exposed Amount of bleeding with debridement: Mild Bleeding Controlled with: Compression and gauze Patient tolerated procedure: Patient tolerated procedure well Post-Debridement Measurements and Additional Note: Post-Debridement Measurements/Treatment - Nurse 1 - General Ulcer Assessment Start: 10/12/24 10:37 Freq: Status: Active Protocol: LUIS ARMANDO Activity Type Activity Date Activity User E-sign Co-sign Detail Recorded Client Recorded Date Recorded By Document 10/12/24 10:38 DL [id number] 10/12/24 10:46 DL Document 10/26/24 10:27 ML [id number] 10/26/24 10:35 ML 10/12/24 10/26/24 10:38 10:27 - Today's Visit Information Type of service Follow-up Visit Follow-up Visit (Physician/RN INTENSIVE CARE UNIT (Physician/RN INTENSIVE CARE UNIT ) ) Arrival Mode Ambulatory Ambulatory Transfer Assistance None None Patient Identification Verified (Name & Yes Yes ) Patient Requires Transmission-Based No No Precautions Vital Signs Temperature (97.8 F-99.1 F) 97.6 F L 97.0 F L Temperature Source Temporal Temporal Pulse Rate (60-100) 62 63 Pulse Location Monitor Monitor Respiratory Rate (12-18) 18 15 Respiratory rate source Observation Observation Blood Pressure (90/60-120/80) 149/76 H 149/70 H Blood Pressure Mean (mm Hg) 100 96 Source Monitor Monitor Position Sitting Blood Pressure Location Right Arm History Since Last Visit- (Skip if this is Patient's initial visit) Have you changed medications since your No No last visit? Any new allergies or adverse reactions No No Had a fall/change in ADL's that may No No increase risk of falls Signs or symptoms of abuse and/or No neglect since last visit Have you been in the hospital since your No No last visit? Has dressing in place as prescribed No Yes Has compression in place as prescribed Yes Yes Has offloadiing in place as prescribed N/A N/A Experienced any changes in pain level or No No management Pain Scale: 0-10 Numeric Is Patient Pain Free? Yes Yes WC - Nurse 1 - General Ulcer Measurement Start: 10/12/24 10:37 Freq: Status: Active Protocol: Activity Type Activity Date Activity User E-sign Co-sign Detail Recorded Client Recorded Date Recorded By Document 10/12/24 10:38 DL [id number] 10/12/24 10:46 DL Document 10/26/24 10:27 ML [id number] 10/26/24 10:35 ML 10/12/24 10/26/24 10:38 10:27 Wound Center Nurse 1 #1 R Calf -Current Size (cm) - Length 0.5 0.5 -Current Size (cm) - Width 0.6 0.5 -Current Size (cm) - Depth 0.1 0.1 -Total Square Cm 0.30 0.25 -Photo Taken Yes -Exudate Amt Small Small -Exudate Type Serosanguineous -Wound Margin Distinct, Outline Attached -Granulation Amt Large (67-100%) -Granulation Quality [place] -Slough/Fibrin Yes -Necrosis Amt None Present (0 Small (1-33%) %) -Necrotic Tissue Type Adherent Slough -Structure Exposed N/A -Texture (Za-wound Skin Appearance) Scarring Assessed -Moisture (Za-wound Skin Appearance) No Abnormality Maceration -Color (Za-wound Skin Appearance) No Abnormality Assessed -Temperature (Za-wound Skin No Abnormality No Abnormality Appearance) (Pt Warm) (Pt Warm) -Tenderness on Palpation (Za-wound No No Skin Appearance) -Ulcer Cleansing Soap and Water Rinsed/ Irrigated with Saline -Foul Odor after Cleansing No No -Anesthetic Used 5% Lidocaine 5% Lidocaine Gel Gel Right Calf (cm) 48.5 Right Ankle (cm) 24.4 WC - Nurse 2 - General Ulcer CM Notes Start: 10/12/24 10:37 Freq: Status: Active Protocol: Activity Type Activity Date Activity User E-sign Co-sign Detail Recorded Client Recorded Date Recorded By Document 10/12/24 11:25 [facility] [id number] 10/12/24 11:34 [facility] Document 10/26/24 10:43 [facility] [id number] 10/26/24 10:50 F 10/12/24 10/26/24 11:25 10:43 Wound Center Nurse 2 #1 R Calf -Time 11:25 10:43 -Correct Patient Yes Yes -Correct Side, Site, Position Yes Yes -Correct Procedure Yes Yes -Procedure Performed Yes Yes -Type of Procedure Debridement Debridement -Clinical Debridement Muscle / Fascia Subcutaneous -Tissue Removed Muscle,Fascia Subcutaneous -Post Debridement (cm) - Length 0.7 0.5 -Post Debridement (cm) - Width 1 0.7 -Post Debridement (cm) - Depth 0.3 0.2 -Total Square (Post) (cm) 0.7 0.35 -Area of Debridement (cm) - Length 0.7 0.5 -Area of Debridement (cm) - Width 1 0.7 -Total Square (Area) (cm) 0.7 0.35 -Tunneling No No -Undermining/Tunneling No No -Circular Undermining No No -Wound/Ulcer Outcome Not Healed Not Healed -Ulcer Cleansing Rinsed/ Rinsed/ Irrigated with Irrigated with Saline Saline -Foul Odor after Cleansing No No -Bioengineered Tissue No No -Bleeding Controlled with Pressure Pressure -Treatment Response Procedure Procedure Tolerated Well Tolerated Well -Debridement - Subq, 1st 20sq cm Yes -Debridement - Muscle / Fascia, 1st Yes 20sq cm Pain Scale: 0-10 Numeric Is Patient Pain Free? Yes Yes VISHNU - Nurse 3 - General Ulcer D/C NN Start: 10/12/24 10:37 Freq: Status: Active Protocol: Activity Type Activity Date Activity User E-sign Co-sign Detail Recorded Client Recorded Date Recorded By Document 10/12/24 11:41 GM [id number] 10/12/24 11:42 Document 10/26/24 10:54 DL [id number] 10/26/24 10:56 DL 10/12/24 10/26/24 11:41 10:54 Wound Care Center Nurse 3 #1 R Calf -Ulcer Cleansing Not Cleansed Rinsed/ Irrigated with Saline -Foul Odor after Cleansing No No -Primary Dressing Applied Aquacel AG 4x4, Aquacel Extra, Silicone Border Silicone Border Foam 4x4 Foam 4x4 -Aquacel Extra 1 -Aquacel AG 4x4 1 -Silicone Border Foam 4x4 1 1 -Wound Comment(s) Dressing applied per Luis Velásquez today RLE -Lotion applied to leg before No compression wrap -Tubular Bandage Single Layer Single Layer -Size of Tubigrip Used Size F Size F -Size F ($) 1 1 Treatment Response Procedure Tolerated Well Pain Scale: 0-10 Numeric Is Patient Pain Free? Yes Yes WC - Visit Discharge Discharge Condition Stable Stable Ambulatory Status Ambulatory Ambulatory Transportation Private Auto Private Auto Assessment/Plan Assessment/Plan (1) Nonhealing ulcer of right lower leg: CODE(S): L97.919 - Non-pressure chronic ulcer of unspecified part of right lower leg with unspecified severity QUALIFIERS: Non-pressure ulcer stage: limited to breakdown of skin Qualified Code(s): L97.911 - Non-pressure chronic ulcer of unspecified part of right lower leg limited to breakdown of skin PLAN: Wash leg with Hibiclens or antibacterial soap and water pat dry. Apply Aquacel extra moistened into wound base and cover with a foam dressing single-layer to be with his compression stocking over top Will call with culture results and he can follow-up in 1 weeks. (2) Infected wound: CODE(S): T14.8XXA - Other injury of unspecified body region, initial encounter; L08.9 - Local infection of the skin and subcutaneous tissue, unspecified (3) Nonhealing nonsurgical wound: CODE(S): T14.8XXA - Other injury of unspecified body region, initial encounter
--- NOTE | 2024-10-26 14:51 | WC ---
PHOTO 10/26/24 RIGHT CALF
[2024-11-02 10:57] VITALS: BP 144/64; PULSE 62; RESP 15; TEMP 36.4
--- NOTE | 2024-11-02 12:09 | PCM.WC.PN ---
History of Present Illness Date of Service: 11/02/24 Chief Complaint: Right calf nonhealing wound History of Wound: This is a 63-year-old white male who states when he was a teenager he was in an [place] and got a thorn in his right calf and over the years part of it had come out but he feels like it is never healed. Though then he says about 3 months ago he felt that this really developed into something and now he wants to have a total knee and they will not touch him until he gets this taking care of. It is a scabbed area with some erythema around it it is sore to palpate and pressing down hard no foreign body can be felt by palpation. Patient has the certain insurance that were not allowed to debride on the first visit we can only look and see. Progress of Wound: The wound is measuring smaller and more shallow but still there and not much smaller so we can try using Aquacel extra with Adaptic over top and an [place] SAP on top continue wearing his Tubigrip's and Mook wraps which is his compression stockings over the top. 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 Subjective Subjective Patient has been cooperative with dressing changes Objective Data Objective Data Measurements are about the same we are going to try different changing the product and see if this works better using Aquacel extra rather than Xeroform. We inform patient that the cultures were negative. Reinforced because of his sedentary life he needs to get up and walk and move. Vital Signs: Vital Signs Temp Pulse Resp BP 97.6 F L 62 15 144/64 H 11/02/24 10:57 11/02/24 10:57 11/02/24 10:57 11/02/24 10:57 Lab / Micro Data Micro: Microbiology 10/26/24 14:18 Wound - Leg, Right Gram Stain - Final 10/26/24 14:18 Wound - Leg, Right Wound Culture - Final No growth aerobically. 10/26/24 14:18 Wound - Leg, Right Anaerobic Culture - Final No growth in 5 days. Physical Exam Const oriented x3 General Appearance: cooperative Exam Limitations: no limitations HEENT normocephalic Head and Scalp: normal to inspection Face and Sinus: normal facial exam Nose: external nose normal General Ear: hearing grossly impaired External Ear: external ears normal Mouth: oral and palatal mucosa normal Eyes PERRL General Eye: normal appearance of both eyes Neck full ROM General: normal visual inspection Resp normal respiratory effort Effort and Inspection: able to speak in complete sentences Auscultation: clear to auscultation bilaterally Cardio regular rate and regular rhythm Palpation: normal PMI Rate: regular rate Rhythm: regular rhythm GI Auscultation: normoactive bowel sounds Palpation: soft and no hepatosplenomegaly external exam normal Back/Spine Cervical Spine: cervical ROM normal Thoracic Spine / Upper Back: normal to inspection Lumbar Spine / Lower Back: normal to inspection Extremity normal to inspection General Extremity: normal exam except as noted Skin Wound Narrative: Scabbed wound on right lateral calf with darkened erythema surrounding the perimeter Neuro oriented x3 Psych Appearance: grossly normal Speech: normal speech Thought Content: normal thought content Judgement: judgement good Debridement Note Debridement Note Wound debrided: Right lateral lower leg ulcer nonpressure Type of Debridement: Excisional debridement Anesthesia Used: 5% Lidocaine Gel Depth: Down to and including healthy tissue and in the subcutaneous layer Percentage of wound debrided: 100 Instrument Used: 5mm curette Tissue Removed: Fat layer and fibrin Severity: Fat Layer Exposed Amount of bleeding with debridement: Mild Bleeding Controlled with: Compression and gauze Patient tolerated procedure: Patient tolerated procedure well Post-Debridement Measurements and Additional Note: Post-Debridement Measurements/Treatment - Nurse 1 - General Ulcer Assessment Start: 10/12/24 10:37 Freq: Status: Active Protocol: WC.MAURICIO Activity Type Activity Date Activity User E-sign Co-sign Detail Recorded Client Recorded Date Recorded By Document 10/12/24 10:38 DL [id number] 10/12/24 10:46 DL Document 10/26/24 10:27 ML [id number] 10/26/24 10:35 ML Document 11/02/24 10:57 ML [id number] 11/02/24 11:01 ML 10/12/24 10/26/24 11/02/24 10:38 10:27 10:57 - Today's Visit Information Type of service Follow-up Visit Follow-up Visit Follow-up Visit (Physician/COMPLEX CARE NURSE PRACTITIONER (Physician/COMPLEX CARE NURSE PRACTITIONER (Physician/COMPLEX CARE NURSE PRACTITIONER ) ) ) Arrival Mode Ambulatory Ambulatory Ambulatory Transfer Assistance None None None Patient Identification Verified (Name & Yes Yes Yes ) Patient Requires Transmission-Based No No No Precautions Vital Signs Temperature (97.8 F-99.1 F) 97.6 F L 97.0 F L 97.6 F L Temperature Source Temporal Temporal Temporal Pulse Rate (60-100) 62 63 62 Pulse Location Monitor Monitor Monitor Respiratory Rate (12-18) 18 15 15 Respiratory rate source Observation Observation Observation Blood Pressure (90/60-120/80) 149/76 H 149/70 H 144/64 H Blood Pressure Mean (mm Hg) 100 96 90 Source Monitor Monitor Monitor Position Sitting Sitting Blood Pressure Location Right Arm Right Arm History Since Last Visit- (Skip if this is Patient's initial visit) Have you changed medications since your No No No last visit? Any new allergies or adverse reactions No No No Had a fall/change in ADL's that may No No No increase risk of falls Signs or symptoms of abuse and/or No No neglect since last visit Have you been in the hospital since your No No No last visit? Has dressing in place as prescribed No Yes Yes Has compression in place as prescribed Yes Yes Yes Has offloadiing in place as prescribed N/A N/A N/A Experienced any changes in pain level or No No No management Pain Scale: 0-10 Numeric Is Patient Pain Free? Yes Yes Yes WC - Nurse 1 - General Ulcer Measurement Start: 10/12/24 10:37 Freq: Status: Active Protocol: Activity Type Activity Date Activity User E-sign Co-sign Detail Recorded Client Recorded Date Recorded By Document 10/12/24 10:38 DL [id number] 10/12/24 10:46 DL Document 10/26/24 10:27 ML [id number] 10/26/24 10:35 ML Document 11/02/24 10:57 ML [id number] 11/02/24 11:01 ML 10/12/24 10/26/24 11/02/24 10:38 10:27 10:57 Wound Center Nurse 1 #1 R Calf -Current Size (cm) - Length 0.5 0.5 0.7 -Current Size (cm) - Width 0.6 0.5 1 -Current Size (cm) - Depth 0.1 0.1 0.2 -Total Square Cm 0.30 0.25 0.7 -Photo Taken Yes -Exudate Amt Small Small Medium -Exudate Type Serosanguineous Serous -Wound Margin Distinct, Outline Attached -Granulation Amt Large (67-100%) -Granulation Quality [place] -Slough/Fibrin Yes Yes -Necrosis Amt None Present (0 Small (1-33%) Small (1-33%) %) -Necrotic Tissue Type Adherent Slough Adherent Slough -Structure Exposed N/A -Texture (Za-wound Skin Appearance) Scarring Assessed Assessed -Moisture (Za-wound Skin Appearance) No Abnormality Maceration Assessed -Color (Za-wound Skin Appearance) No Abnormality Assessed Assessed -Temperature (Za-wound Skin No Abnormality No Abnormality No Abnormality Appearance) (Pt Warm) (Pt Warm) (Pt Warm) -Tenderness on Palpation (Za-wound No No No Skin Appearance) -Ulcer Cleansing Soap and Water Rinsed/ Rinsed/ Irrigated with Irrigated with Saline Saline -Foul Odor after Cleansing No No No -Anesthetic Used 5% Lidocaine 5% Lidocaine 5% Lidocaine Gel Gel Gel Right Calf (cm) 48.5 Right Ankle (cm) 24.4 WC - Nurse 2 - General Ulcer CM Notes Start: 10/12/24 10:37 Freq: Status: Active Protocol: Activity Type Activity Date Activity User E-sign Co-sign Detail Recorded Client Recorded Date Recorded By Document 10/12/24 11:25 [facility] [id number] 10/12/24 11:34 [email or web address] Document 10/26/24 10:43 [email or web address] 10/26/24 10:50 [email or web address] Document 11/02/24 11:33 [email or web address] 11/02/24 11:35 BM 10/12/24 10/26/24 11/02/24 11:25 10:43 11:33 Wound Center Nurse 2 #1 R Calf -Time 11:25 10:43 11:33 -Correct Patient Yes Yes Yes -Correct Side, Site, Position Yes Yes Yes -Correct Procedure Yes Yes Yes -Procedure Performed Yes Yes Yes -Type of Procedure Debridement Debridement Debridement -Clinical Debridement Muscle / Fascia Subcutaneous Subcutaneous -Tissue Removed Muscle,Fascia Subcutaneous Subcutaneous -Post Debridement (cm) - Length 0.7 0.5 0.7 -Post Debridement (cm) - Width 1 0.7 0.8 -Post Debridement (cm) - Depth 0.3 0.2 0.2 -Total Square (Post) (cm) 0.7 0.35 0.56 -Area of Debridement (cm) - Length 0.7 0.5 0.7 -Area of Debridement (cm) - Width 1 0.7 0.8 -Total Square (Area) (cm) 0.7 0.35 0.56 -Tunneling No No No -Undermining/Tunneling No No No -Circular Undermining No No No -Wound/Ulcer Outcome Not Healed Not Healed Not Healed -Ulcer Cleansing Rinsed/ Rinsed/ Rinsed/ Irrigated with Irrigated with Irrigated with Saline Saline Saline -Foul Odor after Cleansing No No No -Bioengineered Tissue No No No -Bleeding Controlled with Pressure Pressure Pressure -Treatment Response Procedure Procedure Procedure Tolerated Well Tolerated Well Tolerated Well -Debridement - Subq, 1st 20sq cm Yes Yes -Debridement - Muscle / Fascia, 1st Yes 20sq cm Pain Scale: 0-10 Numeric Is Patient Pain Free? Yes Yes Yes - Nurse 3 - General Ulcer D/C NN Start: 10/12/24 10:37 Freq: Status: Active Protocol: Activity Type Activity Date Activity User E-sign Co-sign Detail Recorded Client Recorded Date Recorded By Document 10/12/24 11:41 GM [id number] 10/12/24 11:42 GM Document 10/26/24 10:54 DL [id number] 10/26/24 10:56 DL Document 11/02/24 11:52 ML [id number] 11/02/24 11:53 ML 10/12/24 10/26/24 11/02/24 11:41 10:54 11:52 Wound Care Center Nurse 3 #1 R Calf -Ulcer Cleansing Not Cleansed Rinsed/ Rinsed/ Irrigated with Irrigated with Saline Saline -Foul Odor after Cleansing No No -Primary Dressing Applied Aquacel AG 4x4, Aquacel Extra, Aquacel Extra, Silicone Border Silicone Border NonAdherent Foam 4x4 Foam 4x4 Contact Layer, Silicone Border Foam 4x4 -Aquacel Extra 1 1 -Aquacel AG 4x4 1 -Silicone Border Foam 4x4 1 1 1 -Wound Comment(s) Dressing applied per Luis Velásquez today RLE -Lotion applied to leg before No compression wrap -Tubular Bandage Single Layer Single Layer -Size of Tubigrip Used Size F Size F -Size F ($) 1 1 Treatment Response Procedure Tolerated Well Pain Scale: 0-10 Numeric Is Patient Pain Free? Yes Yes Yes WC - Visit Discharge Discharge Condition Stable Stable Ambulatory Status Ambulatory Ambulatory Transportation Private Auto Private Auto Assessment/Plan Assessment/Plan (1) Nonhealing ulcer of right lower leg: CODE(S): L97.919 - Non-pressure chronic ulcer of unspecified part of right lower leg with unspecified severity QUALIFIERS: Non-pressure ulcer stage: limited to breakdown of skin Qualified Code(s): L97.911 - Non-pressure chronic ulcer of unspecified part of right lower leg limited to breakdown of skin (2) Infected wound: CODE(S): T14.8XXA - Other injury of unspecified body region, initial encounter; L08.9 - Local infection of the skin and subcutaneous tissue, unspecified (3) Nonhealing nonsurgical wound: CODE(S): T14.8XXA - Other injury of unspecified body region, initial encounter (4) 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 Apply Aquacel extra moistened into wound base and cover with Adaptic then a foam dressing single-layer to be with his compression stocking over top follow-up in 1 weeks. Needs to ambulate more at work than just sitting all day.
[2024-11-09 11:10] VITALS: BP 153/73; PULSE 64; RESP 18; TEMP 36.2
--- NOTE | 2024-11-09 11:48 | PCM.WC.PN ---
History of Present Illness Date of Service: 11/09/24 Chief Complaint: Right calf nonhealing wound History of Wound: This is a 63-year-old white male who states when he was a teenager he was in an [place] and got a thorn in his right calf and over the years part of it had come out but he feels like it is never healed. Though then he says about 3 months ago he felt that this really developed into something and now he wants to have a total knee and they will not touch him until he gets this taking care of. It is a scabbed area with some erythema around it it is sore to palpate and pressing down hard no foreign body can be felt by palpation. Patient has the certain insurance that were not allowed to debride on the first visit we can only look and see. Progress of Wound: The wound is measuring the same as last week. Will continue wearing his Tubigrip's and Mook wraps which is his compression stockings over the top. 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 This next week will be going on vacation which means that he will be so sedentary and we discussed that I think that was holding him back is that he swelling and it is because he sits too much so with him being on vacation and more active I think we might see if he will in the next 2 weeks. Patient will be gone for 2 weeks on vacation and will wear compression stocking with Mook wrap over top. Subjective Subjective Patient is understanding about compression and how it is going to help him heal faster Objective Data Objective Data No sign of infection still has some depth still open we will continue with the Aquacel extra and compression. Vital Signs: Vital Signs Temp Pulse Resp BP O2 Del Method 97.2 F L 64 18 153/73 H Room Air 11/09/24 11:10 11/09/24 11:10 11/09/24 11:10 11/09/24 11:10 11/09/24 11:10 Oxygen Delivery Method Room Air Lab / Micro Data Attestation: I reviewed the patient's lab results. Micro: Microbiology 10/26/24 14:18 Wound - Leg, Right Gram Stain - Final 10/26/24 14:18 Wound - Leg, Right Wound Culture - Final No growth aerobically. 10/26/24 14:18 Wound - Leg, Right Anaerobic Culture - Final No growth in 5 days. Physical Exam Const oriented x3 General Appearance: cooperative Exam Limitations: no limitations HEENT normocephalic Head and Scalp: normal to inspection Face and Sinus: normal facial exam Nose: external nose normal General Ear: hearing grossly impaired External Ear: external ears normal Mouth: oral and palatal mucosa normal Eyes PERRL General Eye: normal appearance of both eyes Neck full ROM General: normal visual inspection Resp normal respiratory effort Effort and Inspection: able to speak in complete sentences Auscultation: clear to auscultation bilaterally Cardio regular rate and regular rhythm Palpation: normal PMI Rate: regular rate Rhythm: regular rhythm GI Auscultation: normoactive bowel sounds Palpation: soft and no hepatosplenomegaly external exam normal Back/Spine Cervical Spine: cervical ROM normal Thoracic Spine / Upper Back: normal to inspection Lumbar Spine / Lower Back: normal to inspection Extremity normal to inspection General Extremity: normal exam except as noted Skin Wound Narrative: Scabbed wound on right lateral calf with darkened erythema surrounding the perimeter Neuro oriented x3 Psych Appearance: grossly normal Speech: normal speech Thought Content: normal thought content Judgement: judgement good Debridement Note Debridement Note Wound debrided: Right lateral lower leg ulcer nonpressure Type of Debridement: Excisional debridement Anesthesia Used: 5% Lidocaine Gel Depth: Down to and including healthy tissue and in the subcutaneous layer Percentage of wound debrided: 100 Instrument Used: 5mm curette Tissue Removed: Fat layer and fibrin Severity: Fat Layer Exposed Amount of bleeding with debridement: Mild Bleeding Controlled with: Compression and gauze Patient tolerated procedure: Patient tolerated procedure well Post-Debridement Measurements and Additional Note: Post-Debridement Measurements/Treatment - Nurse 1 - General Ulcer Assessment Start: 10/12/24 10:37 Freq: Status: Active Protocol: WC.LOWEXT Activity Type Activity Date Activity User E-sign Co-sign Detail Recorded Client Recorded Date Recorded By Document 10/12/24 10:38 DL [id number] 10/12/24 10:46 DL Document 10/26/24 10:27 ML [id number] 10/26/24 10:35 ML Document 11/02/24 10:57 ML [id number] 11/02/24 11:01 ML Document 11/09/24 11:10 MT [id number] 11/09/24 11:15 NC 10/12/24 10/26/24 11/02/24 10:38 10:27 10:57 [facility]'s Visit Information Type of service Follow-up Visit Follow-up Visit Follow-up Visit (Physician/TENTERING MACHINE OFF BEARER (Physician/TENTERING MACHINE OFF BEARER (Physician/TENTERING MACHINE OFF BEARER ) ) ) Arrival Mode Ambulatory Ambulatory Ambulatory Transfer Assistance None None None Accompanied by Patient Identification Verified (Name & Yes Yes Yes ) Patient Requires Transmission-Based No No No Precautions Safety Precautions Vital Signs Temperature (97.8 F-99.1 F) 97.6 F L 97.0 F L 97.6 F L Temperature Source Temporal Temporal Temporal Pulse Rate (60-100) 62 63 62 Pulse Location Monitor Monitor Monitor Respiratory Rate (12-18) 18 15 15 Respiratory rate source Observation Observation Observation Oxygen Delivery Method Blood Pressure (90/60-120/80) 149/76 H 149/70 H 144/64 H Blood Pressure Mean (mm Hg) 100 96 90 Source Monitor Monitor Monitor Position Sitting Sitting Blood Pressure Location Right Arm Right Arm History Since Last Visit- (Skip if this is Patient's initial visit) Have you changed medications since your No No No last visit? Any new allergies or adverse reactions No No No Had a fall/change in ADL's that may No No No increase risk of falls Signs or symptoms of abuse and/or No No neglect since last visit Have you been in the hospital since your No No No last visit? Has dressing in place as prescribed No Yes Yes Has compression in place as prescribed Yes Yes Yes Has offloadiing in place as prescribed N/A N/A N/A Experienced any changes in pain level or No No No management Left Footwear Right Footwear Pain Scale: 0-10 Numeric Is Patient Pain Free? Yes Yes Yes 11/09/24 11:10 [facility] [place] Today's Visit Information Type of service Follow-up Visit (Physician/TENTERING MACHINE OFF BEARER ) Arrival Mode Ambulatory Transfer Assistance Accompanied by self Patient Identification Verified (Name & Yes ) Patient Requires Transmission-Based Precautions Safety Precautions Fall Prevention Vital Signs Temperature (97.8 F-99.1 F) 97.2 F L Temperature Source Temporal Pulse Rate (60-100) 64 Pulse Location Monitor Respiratory Rate (12-18) 18 Respiratory rate source Observation Oxygen Delivery Method Room Air Blood Pressure (90/60-120/80) 153/73 H Blood Pressure Mean (mm Hg) 99 Source Monitor Position Sitting Blood Pressure Location Right Arm History Since Last Visit- (Skip if this is Patient's initial visit) Have you changed medications since your last visit? Any new allergies or adverse reactions Had a fall/change in ADL's that may increase risk of falls Signs or symptoms of abuse and/or neglect since last visit Have you been in the hospital since your last visit? Has dressing in place as prescribed Yes Has compression in place as prescribed Yes Has offloadiing in place as prescribed Yes Experienced any changes in pain level or Yes management Left Footwear Regular Shoe Right Footwear Regular Shoe Pain Scale: 0-10 Numeric Is Patient Pain Free? Yes WC - Nurse 1 - General Ulcer Measurement Start: 10/12/24 10:37 Freq: Status: Active Protocol: Activity Type Activity Date Activity User E-sign Co-sign Detail Recorded Client Recorded Date Recorded By Document 10/12/24 10:38 DL [id number] 10/12/24 10:46 DL Document 10/26/24 10:27 ML [id number] 10/26/24 10:35 ML Document 11/02/24 10:57 ML [id number] 11/02/24 11:01 ML Document 11/09/24 11:10 MT [id number] 11/09/24 11:15 MT 10/12/24 10/26/24 11/02/24 10:38 10:27 10:57 Wound Center Nurse 1 #1 R Calf -Current Size (cm) - Length 0.5 0.5 0.7 -Current Size (cm) - Width 0.6 0.5 1 -Current Size (cm) - Depth 0.1 0.1 0.2 -Total Square Cm 0.30 0.25 0.7 -Date of Last Picture (Recall this field) -Photo Taken Yes -Epithelialization -Tunneling -Undermining/Tunneling -Circular Undermining -Exudate Amt Small Small Medium -Exudate Type Serosanguineous Serous -Wound Margin Distinct, Outline Attached -Granulation Amt Large (67-100%) -Granulation Quality [place] -Slough/Fibrin Yes Yes -Necrosis Amt None Present (0 Small (1-33%) Small (1-33%) %) -Necrotic Tissue Type Adherent Slough Adherent Slough -Structure Exposed N/A -Texture (Za-wound Skin Appearance) Scarring Assessed Assessed -Moisture (Za-wound Skin Appearance) No Abnormality Maceration Assessed -Color (Za-wound Skin Appearance) No Abnormality Assessed Assessed -Temperature (Za-wound Skin No Abnormality No Abnormality No Abnormality Appearance) (Pt Warm) (Pt Warm) (Pt Warm) -Tenderness on Palpation (Za-wound No No No Skin Appearance) -Ulcer Cleansing Soap and Water Rinsed/ Rinsed/ Irrigated with Irrigated with Saline Saline -Foul Odor after Cleansing No No No -Anesthetic Used 5% Lidocaine 5% Lidocaine 5% Lidocaine Gel Gel Gel Right Calf (cm) 48.5 Right Ankle (cm) 24.4 11/09/24 11:10 Wound Center Nurse 1 #1 R Calf -Current Size (cm) - Length 0.7 -Current Size (cm) - Width 1.0 -Current Size (cm) - Depth 0.1 -Total Square Cm 0.70 -Date of Last Picture (Recall this 11/09/24 field) -Photo Taken Yes -Epithelialization Large 67-100% -Tunneling No -Undermining/Tunneling No -Circular Undermining No -Exudate Amt Medium -Exudate Type Serosanguineous -Wound Margin Flat & Intact -Granulation Amt Large (67-100%) -Granulation Quality Pale,[place] -Slough/Fibrin -Necrosis Amt Small (1-33%) -Necrotic Tissue Type Adherent Slough -Structure Exposed -Texture (Za-wound Skin Appearance) Assessed -Moisture (Za-wound Skin Appearance) Assessed -Color (Za-wound Skin Appearance) Assessed -Temperature (Za-wound Skin No Abnormality Appearance) (Pt Warm) -Tenderness on Palpation (Za-wound No Skin Appearance) -Ulcer Cleansing Soap and Water -Foul Odor after Cleansing No -Anesthetic Used 5% Lidocaine Gel Right Calf (cm) 48.5 Right Ankle (cm) 28.5 WC - Nurse 2 - General Ulcer CM Notes Start: 10/12/24 10:37 Freq: Status: Active Protocol: Activity Type Activity Date Activity User E-sign Co-sign Detail Recorded Client Recorded Date Recorded By Document 10/12/24 11:25 BM [id number] 10/12/24 11:34 BMF Document 10/26/24 10:43 BMF [id number] 10/26/24 10:50 BMF Document 11/02/24 11:33 BMF [id number] 11/02/24 11:35 BMF Document 11/09/24 11:19 BMF [id number] 11/09/24 11:25 [facility] 10/12/24 10/26/24 11/02/24 11:25 10:43 11:33 Wound Center Nurse 2 #1 R Calf -Time 11: 10:43 11:33 -Correct Patient Yes Yes Yes -Correct Side, Site, Position Yes Yes Yes -Correct Procedure Yes Yes Yes -Procedure Performed Yes Yes Yes -Type of Procedure Debridement Debridement Debridement -Clinical Debridement Muscle / Fascia Subcutaneous Subcutaneous -Tissue Removed Muscle,Fascia Subcutaneous Subcutaneous -Post Debridement (cm) - Length 0.7 0.5 0.7 -Post Debridement (cm) - Width 1 0.7 0.8 -Post Debridement (cm) - Depth 0.3 0.2 0.2 -Total Square (Post) (cm) 0.7 0.35 0.56 -Area of Debridement (cm) - Length 0.7 0.5 0.7 -Area of Debridement (cm) - Width 1 0.7 0.8 -Total Square (Area) (cm) 0.7 0.35 0.56 -Tunneling No No No -Undermining/Tunneling No No No -Circular Undermining No No No -Wound/Ulcer Outcome Not Healed Not Healed Not Healed -Ulcer Cleansing Rinsed/ Rinsed/ Rinsed/ Irrigated with Irrigated with Irrigated with Saline Saline Saline -Foul Odor after Cleansing No No No -Bioengineered Tissue No No No -Bleeding Controlled with Pressure Pressure Pressure -Treatment Response Procedure Procedure Procedure Tolerated Well Tolerated Well Tolerated Well -Debridement - Subq, 1st 20sq cm Yes Yes -Debridement - Muscle / Fascia, 1st Yes 20sq cm Pain Scale: 0-10 Numeric Is Patient Pain Free? Yes Yes Yes 11/09/24 11:19 Wound Center Nurse 2 #1 R Calf -Time 11:19 -Correct Patient Yes -Correct Side, Site, Position Yes -Correct Procedure Yes -Procedure Performed Yes -Type of Procedure Debridement -Clinical Debridement Subcutaneous -Tissue Removed Subcutaneous -Post Debridement (cm) - Length 0.7 -Post Debridement (cm) - Width 1.2 -Post Debridement (cm) - Depth 0.2 -Total Square (Post) (cm) 0.84 -Area of Debridement (cm) - Length 0.7 -Area of Debridement (cm) - Width 1.2 -Total Square (Area) (cm) 0.84 -Tunneling No -Undermining/Tunneling No -Circular Undermining No -Wound/Ulcer Outcome Not Healed -Ulcer Cleansing Rinsed/ Irrigated with Saline -Foul Odor after Cleansing No -Bioengineered Tissue No -Bleeding Controlled with Pressure -Treatment Response Procedure Tolerated Well -Debridement - Subq, 1st 20sq cm Yes -Debridement - Muscle / Fascia, 1st 20sq cm Pain Scale: 0-10 Numeric Is Patient Pain Free? Yes WC - Nurse 3 - General Ulcer D/C NN Start: 10/12/24 10:37 Freq: Status: Active Protocol: Activity Type Activity Date Activity User E-sign Co-sign Detail Recorded Client Recorded Date Recorded By Document 10/12/24 11:41 GM [id number] 10/12/24 11:42 GM Document 10/26/24 10:54 DL [id number] 10/26/24 10:56 DL Document 11/02/24 11:52 ML [id number] 11/02/24 11:53 ML Document 11/09/24 11:34 MT [id number] 11/09/24 11:37 MT Edit Result 11/09/24 11:34 MT (1) [id number] 11/09/24 11:39 MT (1) #1 R Calf - Silicone Border Foam 6x6 1 => 10/12/24 10/26/24 11/02/24 11:41 10:54 11:52 Wound Care Center Nurse 3 #1 R Calf -Ulcer Cleansing Not Cleansed Rinsed/ Rinsed/ Irrigated with Irrigated with Saline Saline -Foul Odor after Cleansing No No -Negative Pressure Wound Therapy -Primary Dressing Applied Aquacel AG 4x4, Aquacel Extra, Aquacel Extra, Silicone Border Silicone Border NonAdherent Foam 4x4 Foam 4x4 Contact Layer, Silicone Border Foam 4x4 -Other Dressing -Aquacel Extra 1 1 -Aquacel AG 4x4 1 -Silicone Border Foam 4x4 1 1 1 -Wound Comment(s) Dressing applied per Luis Velásquez today RLE -Lotion applied to leg before No compression wrap -Tubular Bandage Single Layer Single Layer -Size of Tubigrip Used Size F Size F -Size F ($) 1 1 Treatment Response Procedure Tolerated Well Pain Scale: 0-10 Numeric Is Patient Pain Free? Yes Yes Yes WC - Visit Discharge Discharge Condition Stable Stable Ambulatory Status Ambulatory Ambulatory Transportation [facility] 11/09/24 11:34 Wound Care Center Nurse 3 #1 R Calf -Ulcer Cleansing -Foul Odor after Cleansing No -Negative Pressure Wound Therapy N/A -Primary Dressing Applied Aquacel Extra, Silicone Border Foam 4x4 -Other Dressing adaptic -Aquacel Extra 1 -Aquacel AG 4x4 -Silicone Border Foam 4x4 1 -Wound Comment(s) RLE -Lotion applied to leg before compression wrap -Tubular Bandage Single Layer -Size of Tubigrip Used Size F -Size F ($) 1 Treatment Response Pain Scale: 0-10 Numeric Is Patient Pain Free? Yes WC - Visit Discharge Discharge Condition Ambulatory Status Transportation Assessment/Plan Assessment/Plan (1) Nonhealing ulcer of right lower leg: CODE(S): L97.919 - Non-pressure chronic ulcer of unspecified part of right lower leg with unspecified severity QUALIFIERS: Non-pressure ulcer stage: limited to breakdown of skin Qualified Code(s): L97.911 - Non-pressure chronic ulcer of unspecified part of right lower leg limited to breakdown of skin (2) Infected wound: CODE(S): T14.8XXA - Other injury of unspecified body region, initial encounter; L08.9 - Local infection of the skin and subcutaneous tissue, unspecified (3) Nonhealing nonsurgical wound: CODE(S): T14.8XXA - Other injury of unspecified body region, initial encounter (4) 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 Apply Aquacel extra moistened into wound base and cover with Adaptic then a foam dressing single-layer to be with his compression stocking over top follow-up in 2 weeks.
--- NOTE | 2024-11-10 09:58 | WC ---
PHOTO-RIGHT CALF 11/09/24
== END 2024-11-10 23:59 | disposition home or self-care (01) ==
LOC: WC 11:00
PROVIDERS: PCP Family Medicine; Visit Provider Nurse Practitioner
DX: L97.212 Non-pressure chronic ulcer of right calf with fat layer exposed (principal); L08.9 Local infection of the skin and subcutaneous tissue, unspecified; S80.8 Other superficial injuries of lower leg; W45.8XXS Other foreign body or object entering through skin, sequela; Z79.82 Long term (current) use of aspirin; Z79.899 Other long term (current) drug therapy
CPT/HCPCS: 11042; 11043; 87070; 87075; 87205

== ENCOUNTER 2024-12-08 13:00 | Outpatient (RCR) | payer OTHER, SELFPAY ==
[2024-11-23 10:34] VITALS: BP 136/74; PULSE 59; RESP 16; TEMP 36.4
--- NOTE | 2024-11-23 11:48 | PCM.WC.PN ---
History of Present Illness Date of Service: 11/23/24 Chief Complaint: Right calf nonhealing wound History of Wound: This is a 63-year-old white male who states when he was a teenager he was in [place] and got a thorn in his right calf and over the years part of it had come out but he feels like it is never healed. Though then he says about 3 months ago he felt that this really developed into something and now he wants to have a total knee and they will not touch him until he gets this taking care of. It is a scabbed area with some erythema around it it is sore to palpate and pressing down hard no foreign body can be felt by palpation. Patient has the certain insurance that were not allowed to debride on the first visit we can only look and see. Progress of Wound: The wound progression is slow patient's measurements are about the same as last week. He does not meet the criteria for an epi. Will continue using the Aquacel extra. Patient is compliant in using his compression stockings. Subjective Subjective Patient is agreeable to plan Objective Data Objective Data Measurements are about the same still has this reddened area going around the perimeter of the wound last cultures were negative we will wait and culture next week. Will continue with the Aquacel extra and see how it goes for another week. Patient had was missing for 2 weeks because he was on vacation and he stated he was on his legs a lot. Vital Signs: Vital Signs Temp Pulse Resp BP 97.6 F L 59 L 16 136/74 H 11/23/24 10:34 11/23/24 10:34 11/23/24 10:34 11/23/24 10:34 Lab / Micro Data Attestation: I reviewed the patient's lab results. Physical Exam Const oriented x3 General Appearance: cooperative Exam Limitations: no limitations HEENT normocephalic Head and Scalp: normal to inspection Face and Sinus: normal facial exam Nose: external nose normal General Ear: hearing grossly impaired External Ear: external ears normal Mouth: oral and palatal mucosa normal Eyes PERRL General Eye: normal appearance of both eyes Neck full ROM General: normal visual inspection Resp normal respiratory effort Effort and Inspection: able to speak in complete sentences Auscultation: clear to auscultation bilaterally Cardio regular rate and regular rhythm Palpation: normal PMI Rate: regular rate Rhythm: regular rhythm GI Auscultation: normoactive bowel sounds Palpation: soft and no hepatosplenomegaly external exam normal Back/Spine Cervical Spine: cervical ROM normal Thoracic Spine / Upper Back: normal to inspection Lumbar Spine / Lower Back: normal to inspection Extremity normal to inspection General Extremity: normal exam except as noted Skin Wound Narrative: Scabbed wound on right lateral calf with darkened erythema surrounding the perimeter Neuro oriented x3 Psych Appearance: grossly normal Speech: normal speech Thought Content: normal thought content Judgement: judgement good Debridement Note Debridement Note Wound debrided: Right lateral lower leg ulcer nonpressure Type of Debridement: Excisional debridement Anesthesia Used: 5% Lidocaine Gel Depth: Down to and including healthy tissue and in the subcutaneous layer Percentage of wound debrided: 100 Instrument Used: 5mm curette Tissue Removed: Fat layer and fibrin Severity: Fat Layer Exposed Amount of bleeding with debridement: Mild Bleeding Controlled with: Compression and gauze Patient tolerated procedure: Patient tolerated procedure well Post-Debridement Measurements and Additional Note: Post-Debridement Measurements/Treatment - Nurse 1 - General Ulcer Assessment Start: 11/23/24 10:33 Freq: Status: Active Protocol: LUIS ARMANDO Activity Type Activity Date Activity User E-sign Co-sign Detail Recorded Client Recorded Date Recorded By Document 11/23/24 10:34 RAFAEL [id number] 11/23/24 10:40 DL 11/23/24 10:34 - Today's Visit Information Type of service Follow-up Visit (Physician/[employer] ) Arrival Mode Ambulatory Transfer Assistance None Patient Identification Verified (Name & Yes ) Patient Requires Transmission-Based No Precautions Vital Signs Temperature (97.8 F-99.1 F) 97.6 F L Temperature Source Temporal Pulse Rate (60-100) 59 L Pulse Location Monitor Respiratory Rate (12-18) 16 Blood Pressure (90/60-120/80) 136/74 H Blood Pressure Mean (mm Hg) 94 Source Monitor History Since Last Visit- (Skip if this is Patient's initial visit) Have you changed medications since your No last visit? Any new allergies or adverse reactions No Had a fall/change in ADL's that may No increase risk of falls Signs or symptoms of abuse and/or No neglect since last visit Have you been in the hospital since your No last visit? Has dressing in place as prescribed Yes Has compression in place as prescribed Yes Has offloadiing in place as prescribed N/A Experienced any changes in pain level or No management Pain Scale: 0-10 Numeric Is Patient Pain Free? Yes - Nurse 1 - General Ulcer Measurement Start: 11/23/24 10:33 Freq: Status: Active Protocol: Activity Type Activity Date Activity User E-sign Co-sign Detail Recorded Client Recorded Date Recorded By Document 11/23/24 10:34 DL [id number] 11/23/24 10:40 DL 11/23/24 10:34 Wound Center Nurse 1 #1 R Calf -Current Size (cm) - Length 0.7 -Current Size (cm) - Width 1.1 -Current Size (cm) - Depth 0.2 -Total Square Cm 0.77 -Photo Taken Yes -Exudate Amt Small -Exudate Type Serosanguineous -Wound Margin Distinct, Outline Attached -Granulation Amt Large (67-100%) -Granulation Quality Red -Necrosis Amt Small (1-33%) -Necrotic Tissue Type Adherent Slough -Structure Exposed N/A -Texture (Za-wound Skin Appearance) Scarring -Moisture (Za-wound Skin Appearance) No Abnormality -Color (Za-wound Skin Appearance) No Abnormality -Temperature (Za-wound Skin No Abnormality Appearance) (Pt Warm) -Tenderness on Palpation (Za-wound No Skin Appearance) -Ulcer Cleansing Soap and Water -Foul Odor after Cleansing No -Anesthetic Used 5% Lidocaine Gel Right Calf (cm) 48 Right Ankle (cm) 26 - Nurse 2 - General Ulcer CM Notes Start: 11/23/24 10:33 Freq: Status: Active Protocol: Activity Type Activity Date Activity User E-sign Co-sign Detail Recorded Client Recorded Date Recorded By Document 11/23/24 10:49 [facility] [id number] 11/23/24 10:53 [facility] 11/23/24 10:49 Wound Center Nurse 2 #1 R Calf -Time 10:49 -Correct Patient Yes -Correct Side, Site, Position Yes -Correct Procedure Yes -Procedure Performed Yes -Type of Procedure Debridement -Clinical Debridement Subcutaneous -Tissue Removed Subcutaneous -Post Debridement (cm) - Length 0.8 -Post Debridement (cm) - Width 1.2 -Post Debridement (cm) - Depth 0.3 -Total Square (Post) (cm) 0.96 -Area of Debridement (cm) - Length 0.8 -Area of Debridement (cm) - Width 1.2 -Total Square (Area) (cm) 0.96 -Tunneling No -Undermining/Tunneling No -Circular Undermining No -Wound/Ulcer Outcome Not Healed -Ulcer Cleansing Rinsed/ Irrigated with Saline -Foul Odor after Cleansing No -Bioengineered Tissue No -Bleeding Controlled with Pressure -Treatment Response Procedure Tolerated Well -Debridement - Subq, 1st 20sq cm Yes Pain Scale: 0-10 Numeric Is Patient Pain Free? Yes - Nurse 3 - General Ulcer D/C NN Start: 11/23/24 10:33 Freq: Status: Active Protocol: Activity Type Activity Date Activity User E-sign Co-sign Detail Recorded Client Recorded Date Recorded By Document 11/23/24 11:00 DL [id number] 11/23/24 11:01 DL 11/23/24 11:00 Wound Care Center Nurse 3 #1 R Calf -Ulcer Cleansing Rinsed/ Irrigated with Saline -Foul Odor after Cleansing No -Primary Dressing Applied Aquacel Extra, NonAdherent Contact Layer, Silicone Border Foam 4x4 -Aquacel Extra 1 -Silicone Border Foam 4x4 1 RLE -Tubular Bandage Single Layer -Size of Tubigrip Used Size F -Size F ($) 1 Treatment Response Procedure Tolerated Well Pain Scale: 0-10 Numeric Is Patient Pain Free? Yes - Visit Discharge Discharge Condition Stable Ambulatory Status Ambulatory Transportation Private Auto Assessment/Plan Assessment/Plan (1) Nonhealing ulcer of right lower leg: CODE(S): L97.919 - Non-pressure chronic ulcer of unspecified part of right lower leg with unspecified severity QUALIFIERS: Non-pressure ulcer stage: limited to breakdown of skin Qualified Code(s): L97.911 - Non-pressure chronic ulcer of unspecified part of right lower leg limited to breakdown of skin (2) Infected wound: CODE(S): T14.8XXA - Other injury of unspecified body region, initial encounter; L08.9 - Local infection of the skin and subcutaneous tissue, unspecified (3) Nonhealing nonsurgical wound: CODE(S): T14.8XXA - Other injury of unspecified body region, initial encounter (4) 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 Apply Aquacel extra moistened into wound base and cover with Adaptic then a foam dressing single-layer to be with his compression stocking over top follow-up in 1 weeks.
[2024-12-01 13:12] VITALS: BP 153/81; PULSE 74; RESP 18; TEMP 35.6
--- NOTE | 2024-12-01 14:08 | PCM.WC.HP ---
History of Present Illness Date of Service: 12/01/24 Chief Complaint: Right calf nonhealing wound History of Wound: Mr. Stephane Redmond is a 64 y/o male who presents to the wound center today for ongoing management of his R posterior calf ulceration. He has previously been following with Chacha Dunham here but due to scheduling difficulties is seeing me for the next few weeks. He reports this calf ulcer has been present since around Mid-August, he really cannot pinpoint what may have provoked this. He does recall that remotely he had a thorny apple injure this calf and he subsequently had thorns/material come to the surface later on however he has not observed any such foreign material/body this time. He reports that initial treatment here was with a product that included silver and he felt he noticed improvement on that product; more recently it seems to have stalled a bit. He has some redness around the wound which he reports is fairly stable. He has not had increased pain. He reports mild drainage. He is not diabetic. He does not smoke. He has noticed some irritation around the wound edges which seems to correspond to where the adaptic contacts his skin. He has a R meniscus tear and had plans to proceed with arthroscopic intervention but the wound must be healed in order for him to proceed. ON LICENSE OF [facility] Home Medications Medication Instructions Recorded Last Taken Type Lactobacillus 1 ea PO DAILY 11/26/17 Unknown History 41-B.animalis,bifid-FOS 111 mg (25 billion cell) capsule (Ultimate Probiotic-10) aspirin 81 mg chewable tablet 81 mg PO DAILY@0800 11/26/17 Unknown History cholecalciferol (vitamin D3) 25 1,000 unit PO DAILY 11/26/17 Unknown History mcg (1,000 unit) capsule (Vitamin D3) esomeprazole magnesium 40 mg 40 mg PO DAILY 11/26/17 12/03/17 04:45 History capsule,delayed release (Nexium) 40 MG lidocaine-aloe vera 0.5 % topical 227 g TP PRN PRN CREAM 11/26/17 Unknown History gel lisinopril 20 mg tablet 20 mg PO DAILY 11/26/17 12/03/17 04:45 History 20 MG loratadine 10 mg tablet (Allergy 10 mg PO DAILY 11/26/17 Unknown History Relief (loratadine)) melatonin 5 mg capsule 5 mg PO QHS 11/26/17 Unknown History mometasone 50 mcg/actuation nasal 2 spray DAILY 11/26/17 Unknown History spray (Nasonex) montelukast 10 mg tablet 10 mg PO DAILY 11/26/17 Unknown History naproxen 250 mg tablet 250 mg PO BID 11/26/17 Unknown History omega-3 1,050 [id number] 1 ea PO DAILY 11/26/17 Unknown History oil 1,200 mg capsule ([place]-3 2100) sertraline 25 mg tablet (Zoloft) 25 mg PO DAILY 11/26/17 Unknown History tamsulosin 0.4 mg capsule 0.4 mg PO DAILY 11/26/17 Unknown History vitamin B comp and C no.3 15 mg-10 1 ea PO DAILY 11/26/17 Unknown History mg-50 mg-5 mg-300 mg capsule (B Complex Plus Vitamin C) hydrocodone-acetaminophen 5-325mg 1 ea PO Q6H PRN PRN Pain 5 days 12/03/17 Unknown Rx 5mg-325mg #20 tabs Allergy/AdvReac Type Severity Reaction Status Date / Time No Known Allergies Allergy Verified 11/26/17 09:31 Social History Smoking Status: Former smoker Vital Signs Vital Signs Vital Signs: 12/01/24 13:12 Temperature 96.0 F L Temperature Source Temporal Pulse Rate 74 Respiratory Rate 18 Blood Pressure 153/81 H Blood Pressure Mean 105 Blood Pressure Source Monitor Blood Pressure Position Semi-Fowlers Blood Pressure Location Right Arm Oxygen Delivery Method Room Air Physical Exam Const alert, oriented x3 and no apparent distress General Appearance: cooperative and comfortable HEENT normocephalic, head/scalp atraumatic, hearing grossly normal bilaterally, external ears normal and external nose normal Eyes General Eye: normal appearance of both eyes Neck General: normal visual inspection Resp Effort and Inspection: able to speak in complete sentences; Negative for labored, grunting or stridor Cardio Rate: regular rate Peripheral Pulses: posterior tibial pulses present and dorsalis pedis pulses present Extremity Extremity Narrative: Trace edema bilateral lower extremities; spider veins bilaterally without any prominent larger varicosities, no significant hemosiderin deposition or lipodermatosclerosis. Skin Wound Narrative: R posterior calf ulceration with red/pink granular base with small amount of bioburden/slough. There is mild erythema around the edges of the wound without associated increased warmth or fluctuance. There is no foul odor. Debridement Note Debridement Note Wound debrided: R posterior calf Laterality: Right Type of Debridement: Selective debridement Anesthesia Used: 5% Lidocaine Gel Depth: Down to and including healthy tissue and in the subcutaneous layer Percentage of wound debrided: 100 Instrument Used: 3mm curette Tissue Removed: slough, bioburden Severity: Fat Layer Exposed Amount of bleeding with debridement: Mild Bleeding Controlled with: Pressure Patient tolerated procedure: Patient tolerated procedure well Post-Debridement Measurements and Additional Note: Post-Debridement Measurements/Treatment - Nurse 1 - General Ulcer Assessment Start: 11/23/24 10:33 Freq: Status: Active Protocol: VISHNUWrightspeedMontserrat Activity Type Activity Date Activity User E-sign Co-sign Detail Recorded Client Recorded Date Recorded By Document 11/23/24 10:34 DL [id number] 11/23/24 10:40 DL Document 12/01/24 13:12 KW [id number] 12/01/24 13:19 KW 11/23/24 12/01/24 10:34 13:12 - Today's Visit Information Type of service Follow-up Visit Follow-up Visit (Physician/ZINC MINER (Physician/ZINC MINER ) ) Arrival Mode Ambulatory Ambulatory Transfer Assistance None Patient Identification Verified (Name & Yes Yes ) Patient Requires Transmission-Based No Precautions Vital Signs Temperature (97.8 F-99.1 F) 97.6 F L 96.0 F L Temperature Source Temporal Temporal Pulse Rate (60-100) 59 L 74 Pulse Location Monitor Monitor Respiratory Rate (12-18) 16 18 Respiratory rate source Observation Oxygen Delivery Method Room Air Blood Pressure (90/60-120/80) 136/74 H 153/81 H Blood Pressure Mean 94 105 Source Monitor Monitor Position Semi-Fowlers Blood Pressure Location Right Arm History Since Last Visit- (Skip if this is Patient's initial visit) Have you changed medications since your No No last visit? Any new allergies or adverse reactions No No Had a fall/change in ADL's that may No No increase risk of falls Signs or symptoms of abuse and/or No No neglect since last visit Have you been in the hospital since your No No last visit? Has dressing in place as prescribed Yes Yes Has compression in place as prescribed Yes Yes Has offloadiing in place as prescribed N/A N/A Experienced any changes in pain level or No No management Left Footwear Regular Shoe Right Footwear Regular Shoe Pain Scale: 0-10 Numeric Is Patient Pain Free? Yes Yes - Nurse 1 - General Ulcer Measurement Start: 11/23/24 10:33 Freq: Status: Active Protocol: Activity Type Activity Date Activity User E-sign Co-sign Detail Recorded Client Recorded Date Recorded By Document 11/23/24 10:34 DL [id number] 11/23/24 10:40 DL Document 12/01/24 13:12 KW [id number] 12/01/24 13:19 KW 11/23/24 12/01/24 10:34 13:12 Wound Center Nurse 1 #1 R Calf -Current Size (cm) - Length 0.7 1 -Current Size (cm) - Width 1.1 0.8 -Current Size (cm) - Depth 0.2 0.2 -Total Square Cm 0.77 0.8 -Date of Last Picture (Recall this 12/01/24 field) -Photo Taken Yes -Exudate Amt Small Medium -Exudate Type Serosanguineous Serosanguineous -Wound Margin Distinct, Distinct, Outline Outline Attached Attached -Granulation Amt Large (67-100%) Large (67-100%) -Granulation Quality Red Red -Necrosis Amt Small (1-33%) -Necrotic Tissue Type Adherent Slough -Structure Exposed N/A -Texture (Za-wound Skin Appearance) Scarring Assessed -Moisture (Za-wound Skin Appearance) No Abnormality Assessed -Color (Za-wound Skin Appearance) No Abnormality Assessed, Erythema -Temperature (Za-wound Skin No Abnormality No Abnormality Appearance) (Pt Warm) (Pt Warm) -Tenderness on Palpation (Za-wound No No Skin Appearance) -Ulcer Cleansing Soap and Water Soap and Water -Foul Odor after Cleansing No No -Anesthetic Used 5% Lidocaine 5% Lidocaine Gel Gel Right Calf (cm) 48 46.7 Right Ankle (cm) 26 26 WC - Nurse 2 - General Ulcer CM Notes Start: 11/23/24 10:33 Freq: Status: Active Protocol: Activity Type Activity Date Activity User E-sign Co-sign Detail Recorded Client Recorded Date Recorded By Document 11/23/24 10:49 [facility] [id number] 11/23/24 10:53 [facility] Document 12/01/24 13:26 [id number] 12/01/24 13:35 GM 11/23/24 12/01/24 10:49 13:26 Wound Center Nurse 2 #1 R Calf -Time 10:49 13:27 -Correct Patient Yes Yes -Correct Side, Site, Position Yes Yes -Correct Procedure Yes Yes -Procedure Performed Yes Yes -Type of Procedure Debridement Debridement -Clinical Debridement Subcutaneous Subcutaneous -Tissue Removed Subcutaneous Subcutaneous -Post Debridement (cm) - Length 0.8 0.7 -Post Debridement (cm) - Width 1.2 0.8 -Post Debridement (cm) - Depth 0.3 0.3 -Total Square (Post) (cm) 0.96 0.56 -Area of Debridement (cm) - Length 0.8 0.7 -Area of Debridement (cm) - Width 1.2 0.8 -Total Square (Area) (cm) 0.96 0.56 -Tunneling No No -Undermining/Tunneling No No -Circular Undermining No No -Wound/Ulcer Outcome Not Healed Not Healed -Ulcer Cleansing Rinsed/ Rinsed/ Irrigated with Irrigated with Saline Saline -Foul Odor after Cleansing No No -Bioengineered Tissue No No -Bleeding Controlled with Pressure Pressure -Treatment Response Procedure Procedure Tolerated Well Tolerated Well -Offloading No -Debridement - Subq, 1st 20sq cm Yes Yes Pain Scale: 0-10 Numeric Is Patient Pain Free? Yes Yes - Nurse 3 - General Ulcer D/C NN Start: 11/23/24 10:33 Freq: Status: Active Protocol: Activity Type Activity Date Activity User E-sign Co-sign Detail Recorded Client Recorded Date Recorded By Document 11/23/24 11:00 DL [id number] 11/23/24 11:01 DL 11/23/24 11:00 Wound Care Center Nurse 3 #1 R Calf -Ulcer Cleansing Rinsed/ Irrigated with Saline -Foul Odor after Cleansing No -Primary Dressing Applied Aquacel Extra, NonAdherent Contact Layer, Silicone Border Foam 4x4 -Aquacel Extra 1 -Silicone Border Foam 4x4 1 RLE -Tubular Bandage Single Layer -Size of Tubigrip Used Size F -Size F ($) 1 Treatment Response Procedure Tolerated Well Pain Scale: 0-10 Numeric Is Patient Pain Free? Yes WC - Visit Discharge Discharge Condition Stable Ambulatory Status Ambulatory Transportation Private Auto Charges/Coding Visit Charges Office Visits / Consults: [id number] OV L3 New 30min Procedures Integumentary [id number]: [id number] Luisa subq tissue 20 sq cm/< Assessment/Plan Assessment/Plan (1) Ulcer of right lower extremity with fat layer exposed: CODE(S): L97.912 - Non-pressure chronic ulcer of unspecified part of right lower leg with fat layer exposed PLAN: Nonpressure chronic ulcer of the right posterior lower leg with fat layer exposed PLAN: Plan For wound care: (1) Cleanse the area with soap and water, pat to dry (2) Apply lightly-moistened Lenka to the wound case (3) Cover with foam-border dressing (Mepilex or ExcelSAP) (4) Change every other day if the area remains clean and dry, change more often as needed if it becomes soaked or soiled. Continue to utilize compression stockings daily. We will consider venous doppler in the future. Plan for return to the office in 1 week, sooner as needed.
--- NOTE | 2024-12-02 09:25 | WC ---
PHOTO-RIGHT CALF 12/01/24
[2024-12-08 12:58] VITALS: BP 162/82; PULSE 69; RESP 18; TEMP 35.8
--- NOTE | 2024-12-08 13:40 | PN.PCM_ITS ---
History of Present Illness Date of Service: 12/08/24 Chief Complaint: Right calf nonhealing wound History of Wound: Mr. Stephane Redmond is a 64 y/o male who presents to the wound center today for ongoing management of his R posterior calf ulceration. He has previously been following with Chacha Dunham here but due to scheduling difficulties is seeing me for the next few weeks. He reports this calf ulcer has been present since around Mid-August, he really cannot pinpoint what may have provoked this. He does recall that remotely he had a thorny apple injure this calf and he subsequently had thorns/material come to the surface later on however he has not observed any such foreign material/body this time. He reports that initial treatment here was with a product that included silver and he felt he noticed improvement on that product; more recently it seems to have stalled a bit. He has some redness around the wound which he reports is fairly stable. He has not had increased pain. He reports mild drainage. He is not diabetic. He does not smoke. He has noticed some irritation around the wound edges which seems to correspond to where the adaptic contacts his skin. He has a R meniscus tear and had plans to proceed with arthroscopic intervention but the wound must be healed in order for him to proceed. Progress of Wound: He feels he has noticed improvement in the depth of the wound over this past week. He had no issues with dressing changes. No new concerns regarding the wound. Objective Data Objective Data Vital Signs: Vital Signs Temp Pulse Resp BP O2 Del Method 96.5 F L 69 18 162/82 H Room Air 12/08/24 12:58 12/08/24 12:58 12/08/24 12:58 12/08/24 12:58 12/08/24 12:58 Oxygen Delivery Method Room Air Charges/Coding Multi Select Codes Integumentary Integumentary CPT Codes: Other Procedure See Report ([id number]) Physical Exam Const alert, oriented x3 and no apparent distress General Appearance: cooperative and comfortable HEENT normocephalic, head/scalp atraumatic, hearing grossly normal bilaterally, external ears normal and external nose normal Eyes General Eye: normal appearance of both eyes Neck General: normal visual inspection Resp Effort and Inspection: able to speak in complete sentences; Negative for labored, grunting or stridor Extremity Extremity Narrative: Trace edema bilateral lower extremities; spider veins bilaterally without any prominent larger varicosities, no significant hemosiderin deposition or lipodermatosclerosis. Skin Wound Narrative: R posterior calf ulceration with red/pink granular base without significant bioburden/slough. There is mild erythema around the edges of the wound without associated increased warmth or fluctuance. There is no foul odor. Debridement Note Debridement Note Wound debrided: R posterior calf Laterality: Right Type of Debridement: Selective debridement Anesthesia Used: 5% Lidocaine Gel Depth: Down to and including healthy tissue Percentage of wound debrided: 100 Instrument Used: - (moistened gauze) Tissue Removed: slough, bioburden Severity: Fat Layer Exposed Amount of bleeding with debridement: None Patient tolerated procedure: Patient tolerated procedure well Post-Debridement Measurements and Additional Note: Post-Debridement Measurements/Treatment - Nurse 1 - General Ulcer Assessment Start: 11/23/24 10:33 Freq: Status: Active Protocol: WC.LOWDEMETRAT Activity Type Activity Date Activity User E-sign Co-sign Detail Recorded Client Recorded Date Recorded By Document 11/23/24 10:34 DL [id number] 11/23/24 10:40 DL Document 12/01/24 13:12 KW [id number] 12/01/24 13:19 KW Document 12/08/24 12:58 KW [id number] 12/08/24 12:59 KW 11/23/24 12/01/24 12/08/24 10:34 13:12 12:58 - Today's Visit Information Type of service Follow-up Visit Follow-up Visit Follow-up Visit (Physician/SERVICE LOSS CONTROL CONSULTANT (Physician/SERVICE LOSS CONTROL CONSULTANT (Physician/SERVICE LOSS CONTROL CONSULTANT ) ) ) Arrival Mode Ambulatory Ambulatory Ambulatory Transfer Assistance None Patient Identification Verified (Name & Yes Yes Yes ) Patient Requires Transmission-Based No Precautions Vital Signs Temperature (97.8 F-99.1 F) 97.6 F L 96.0 F L 96.5 F L Temperature Source Temporal Temporal Temporal Pulse Rate (60-100) 59 L 74 69 Pulse Location Monitor Monitor Monitor Respiratory Rate (12-18) 16 18 18 Respiratory rate source Observation Observation Oxygen Delivery Method Room Air Room Air Blood Pressure (90/60-120/80) 136/74 H 153/81 H 162/82 H Blood Pressure Mean (mm Hg) 94 105 108 Source Monitor Monitor Monitor Position Semi-Fowlers Semi-Fowlers Blood Pressure Location Right Arm Left Arm History Since Last Visit- (Skip if this is Patient's initial visit) Have you changed medications since your No No No last visit? Any new allergies or adverse reactions No No No Had a fall/change in ADL's that may No No No increase risk of falls Signs or symptoms of abuse and/or No No No neglect since last visit Have you been in the hospital since your No No No last visit? Has dressing in place as prescribed Yes Yes Yes Has compression in place as prescribed Yes Yes Yes Has offloadiing in place as prescribed N/A N/A N/A Experienced any changes in pain level or No No No management Left Footwear Regular Shoe Regular Shoe Right Footwear Regular Shoe Regular Shoe Pain Scale: 0-10 Numeric Is Patient Pain Free? Yes Yes Yes WC - Nurse 1 - General Ulcer Measurement Start: 11/23/24 10:33 Freq: Status: Active Protocol: Activity Type Activity Date Activity User E-sign Co-sign Detail Recorded Client Recorded Date Recorded By Document 11/23/24 10:34 DL [id number] 11/23/24 10:40 DL Document 12/01/24 13:12 KW [id number] 12/01/24 13:19 KW Document 12/08/24 12:58 KW [id number] 12/08/24 12:59 KW 11/23/24 12/01/24 12/08/24 10:34 13:12 12:58 Wound Center Nurse 1 #1 R Calf -Current Size (cm) - Length 0.7 1 0.5 -Current Size (cm) - Width 1.1 0.8 0.8 -Current Size (cm) - Depth 0.2 0.2 0.1 -Total Square Cm 0.77 0.8 0.40 -Date of Last Picture (Recall this 12/01/24 12/08/24 field) -Photo Taken Yes -Exudate Amt Small Medium Medium -Exudate Type Serosanguineous Serosanguineous Serosanguineous -Wound Margin Distinct, Distinct, Distinct, Outline Outline Outline Attached Attached Attached -Granulation Amt Large (67-100%) Large (67-100%) Large (67-100%) -Granulation Quality Red Red [place],Red -Necrosis Amt Small (1-33%) Small (1-33%) -Necrotic Tissue Type Adherent Slough Adherent Slough -Structure Exposed N/A -Texture (Za-wound Skin Appearance) Scarring Assessed Assessed -Moisture (Za-wound Skin Appearance) No Abnormality Assessed Assessed -Color (Za-wound Skin Appearance) No Abnormality Assessed, Assessed Erythema -Temperature (Za-wound Skin No Abnormality No Abnormality No Abnormality Appearance) (Pt Warm) (Pt Warm) (Pt Warm) -Tenderness on Palpation (Za-wound No No No Skin Appearance) -Ulcer Cleansing Soap and Water Soap and Water Rinsed/ Irrigated with Saline -Foul Odor after Cleansing No No No -Anesthetic Used 5% Lidocaine 5% Lidocaine 5% Lidocaine Gel Gel Gel Right Calf (cm) 48 46.7 Right Ankle (cm) 26 26 WC - Nurse 2 - General Ulcer CM Notes Start: 11/23/24 10:33 Freq: Status: Active Protocol: Activity Type Activity Date Activity User E-sign Co-sign Detail Recorded Client Recorded Date Recorded By Document 11/23/24 10:49 [facility] [id number] 11/23/24 10:53 [facility] Document 12/01/24 13:26 [id number] 12/01/24 13:35 Document 12/08/24 13:24 [id number] 12/08/24 13:27 11/23/24 12/01/24 12/08/24 10:49 13:26 13:24 Wound Center Nurse 2 #1 R Calf -Time 10:49 13:27 13:24 -Correct Patient Yes Yes Yes -Correct Side, Site, Position Yes Yes Yes -Correct Procedure Yes Yes Yes -Procedure Performed Yes Yes Yes -Type of Procedure Debridement Debridement Debridement -Clinical Debridement Subcutaneous Subcutaneous Epidermis / Dermis -Tissue Removed Subcutaneous Subcutaneous Dermis -Post Debridement (cm) - Length 0.8 0.7 0.6 -Post Debridement (cm) - Width 1.2 0.8 0.8 -Post Debridement (cm) - Depth 0.3 0.3 0.1 -Total Square (Post) (cm) 0.96 0.56 0.48 -Area of Debridement (cm) - Length 0.8 0.7 0.6 -Area of Debridement (cm) - Width 1.2 0.8 0.8 -Total Square (Area) (cm) 0.96 0.56 0.48 -Tunneling No No No -Undermining/Tunneling No No -Circular Undermining No No No -Wound/Ulcer Outcome Not Healed Not Healed Not Healed -Ulcer Cleansing Rinsed/ Rinsed/ Rinsed/ Irrigated with Irrigated with Irrigated with Saline Saline Saline -Foul Odor after Cleansing No No No -Bioengineered Tissue No No No -Bleeding Controlled with Pressure Pressure NA -Treatment Response Procedure Procedure Procedure Tolerated Well Tolerated Well Tolerated Well -Offloading No -Debridement - Open, 1st 20sq cm Yes -Debridement - Subq, 1st 20sq cm Yes Yes Pain Scale: 0-10 Numeric Is Patient Pain Free? Yes Yes Yes - Nurse 3 - General Ulcer D/C NN Start: 11/23/24 10:33 Freq: Status: Active Protocol: Activity Type Activity Date Activity User E-sign Co-sign Detail Recorded Client Recorded Date Recorded By Document 11/23/24 11:00 DL [id number] 11/23/24 11:01 DL Document 12/08/24 13:38 ML [id number] 12/08/24 13:39 ML 11/23/24 12/08/24 11:00 13:38 Wound Care Center Nurse 3 #1 R Calf -Ulcer Cleansing Rinsed/ Rinsed/ Irrigated with Irrigated with Saline Saline -Foul Odor after Cleansing No -Primary Dressing Applied Aquacel Extra, Promogran NonAdherent Lenka Matter, Contact Layer, Silicone Border Silicone Border Foam AG 3.6x4 Foam 4x4 -Aquacel Extra 1 -Promogran Lenka Matter 1 -Silicone Border Foam AG 3.6x4 1 -Silicone Border Foam 4x4 1 RLE -Tubular Bandage Single Layer -Size of Tubigrip Used Size F -Size F ($) 1 Treatment Response Procedure Tolerated Well Pain Scale: 0-10 Numeric Is Patient Pain Free? 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 No signs of infection. For wound care: (1) Cleanse the area with soap and water, pat to dry (2) Apply lightly-moistened Lenka to the wound case (3) Cover with foam-border dressing (Mepilex or ExcelSAP) (4) Change every other day if the area remains clean and dry, change more often as needed if it becomes soaked or soiled. Continue to utilize compression stockings daily. We will consider venous doppler in the future. Plan for return to the office in 1 week, sooner as needed.
--- NOTE | 2024-12-09 08:46 | WC ---
PHOTO-RIGHT CALF 12/08/24
== END 2024-12-11 23:59 | disposition home or self-care (01) ==
LOC: WC 13:00
PROVIDERS: PCP Family Medicine; Visit Provider Physician Assistant
DX: L97.212 Non-pressure chronic ulcer of right calf with fat layer exposed (principal); Z79.82 Long term (current) use of aspirin; Z79.899 Other long term (current) drug therapy; Z87.891 Personal history of nicotine dependence
CPT/HCPCS: 11042; 97597

== ENCOUNTER 2025-01-05 09:15 | Outpatient (RCR) | payer OTHER, SELFPAY ==
[2024-12-22 13:20] VITALS: BP 140/73; PULSE 66; RESP 18; TEMP 36.6
--- NOTE | 2024-12-22 16:03 | PCM.WC.PN ---
History of Present Illness Date of Service: 12/22/24 Chief Complaint: Right calf nonhealing wound History of Wound: Mr. Stephane Redmond is a 64 y/o male who presents to the wound center today for ongoing management of his R posterior calf ulceration. He has previously been following with Chacha Dunham here but due to scheduling difficulties is seeing me for the next few weeks. He reports this calf ulcer has been present since around Mid-August, he really cannot pinpoint what may have provoked this. He does recall that remotely he had a thorny apple injure this calf and he subsequently had thorns/material come to the surface later on however he has not observed any such foreign material/body this time. He reports that initial treatment here was with a product that included silver and he felt he noticed improvement on that product; more recently it seems to have stalled a bit. He has some redness around the wound which he reports is fairly stable. He has not had increased pain. He reports mild drainage. He is not diabetic. He does not smoke. He has noticed some irritation around the wound edges which seems to correspond to where the adaptic contacts his skin. He has a R meniscus tear and had plans to proceed with arthroscopic intervention but the wound must be healed in order for him to proceed. Subjective Subjective He reports he is doing well overall this week. There is dermatitic appearance around the wound. He denies any N/V, F/C, worsened drainage or foul odor. Objective Data Objective Data Vital Signs: Vital Signs Temp Pulse Resp BP O2 Del Method 97.9 F 66 18 140/73 H Room Air 12/22/24 13:20 12/22/24 13:20 12/22/24 13:20 12/22/24 13:20 12/22/24 13:20 Oxygen Delivery Method Room Air Charges/Coding Procedures Integumentary 111xxx-113xx: [id number] Luisa subq tissue 20 sq cm/< Physical Exam Const alert, oriented x3 and no apparent distress General Appearance: cooperative and comfortable HEENT normocephalic, head/scalp atraumatic, hearing grossly normal bilaterally, external ears normal and external nose normal Eyes General Eye: normal appearance of both eyes Neck General: normal visual inspection Resp Effort and Inspection: able to speak in complete sentences; Negative for labored, grunting or stridor Extremity Extremity Narrative: Trace edema bilateral lower extremities; spider veins bilaterally without any prominent larger varicosities, no significant hemosiderin deposition or lipodermatosclerosis. Skin Wound Narrative: R posterior calf ulceration with red/pink granular base without significant bioburden/slough. There is dermatitic appearance in the periwound, appears within area of foam-border dressing; no significant excess warmth, foul odor, fluctuance, increased edema, lymphangitic streaking. Debridement Note Debridement Note Wound debrided: R posterior calf Laterality: Right Type of Debridement: Selective debridement Anesthesia Used: 5% Lidocaine Gel Depth: Down to and including healthy tissue Percentage of wound debrided: 100 Instrument Used: 3mm curette Tissue Removed: slough, bioburden Severity: Fat Layer Exposed Amount of bleeding with debridement: None Patient tolerated procedure: Patient tolerated procedure well Post-Debridement Measurements and Additional Note: Post-Debridement Measurements/Treatment - Nurse 1 - General Ulcer Assessment Start: 12/22/24 13:20 Freq: Status: Active Protocol: VISHNU.MAURICIO Activity Type Activity Date Activity User E-sign Co-sign Detail Recorded Client Recorded Date Recorded By Document 12/22/24 13:20 [id number] 12/22/24 13:26 12/22/24 13:20 - Today's Visit Information Type of service Follow-up Visit (Physician/SMOKING PIPE MAKER ) Arrival Mode Ambulatory Patient Identification Verified (Name & Yes ) Vital Signs Temperature (97.8 F-99.1 F) 97.9 F Temperature Source Temporal Pulse Rate (60-100) 66 Pulse Location Monitor Respiratory Rate (12-18) 18 Respiratory rate source Observation Oxygen Delivery Method Room Air Blood Pressure (90/60-120/80) 140/73 H Blood Pressure Mean (mm Hg) 95 Source Monitor Position Semi-Fowlers Blood Pressure Location Right Arm History Since Last Visit- (Skip if this is Patient's initial visit) Have you changed medications since your No last visit? Any new allergies or adverse reactions No Had a fall/change in ADL's that may No increase risk of falls Signs or symptoms of abuse and/or No neglect since last visit Have you been in the hospital since your No last visit? Has dressing in place as prescribed Yes Has compression in place as prescribed Yes Has offloadiing in place as prescribed N/A Experienced any changes in pain level or No management Left Footwear Regular Shoe Right Footwear Regular Shoe Pain Scale: 0-10 Numeric Is Patient Pain Free? Yes WC - Nurse 1 - General Ulcer Measurement Start: 12/22/24 13:20 Freq: Status: Active Protocol: Activity Type Activity Date Activity User E-sign Co-sign Detail Recorded Client Recorded Date Recorded By Document 12/22/24 13:20 KW [id number] 12/22/24 13:26 KW Edit Result 12/22/24 13:20 KW (1) [id number] 12/22/24 13:27 KW (1) Right Calf (cm) => 49.6 Right Ankle (cm) => 28.1 12/22/24 13:20 Wound Center Nurse 1 #1 R Calf -Current Size (cm) - Length 0.6 -Current Size (cm) - Width 2.9 -Current Size (cm) - Depth 0.2 -Total Square Cm 1.74 -Date of Last Picture (Recall this 12/22/24 field) -Exudate Amt Medium -Exudate Type Serosanguineous -Wound Margin Distinct, Outline Attached -Granulation Amt Large (67-100%) -Granulation Quality Red -Necrosis Amt Small (1-33%) -Necrotic Tissue Type Adherent Slough -Texture (Za-wound Skin Appearance) Assessed -Moisture (Za-wound Skin Appearance) Assessed -Color (Za-wound Skin Appearance) Assessed -Temperature (Za-wound Skin No Abnormality Appearance) (Pt Warm) -Tenderness on Palpation (Za-wound No Skin Appearance) -Ulcer Cleansing Rinsed/ Irrigated with Saline -Foul Odor after Cleansing No -Anesthetic Used 5% Lidocaine Gel Right Calf (cm) 49.6 Right Ankle (cm) 28.1 WC - Nurse 2 - General Ulcer CM Notes Start: 12/22/24 13:20 Freq: Status: Active Protocol: Activity Type Activity Date Activity User E-sign Co-sign Detail Recorded Client Recorded Date Recorded By Document 12/22/24 13:35 GM [id number] 12/22/24 13:38 GM 12/22/24 13:35 Wound Center Nurse 2 #1 R Calf -Time 13:36 -Correct Patient Yes -Correct Side, Site, Position Yes -Correct Procedure Yes -Procedure Performed Yes -Type of Procedure Debridement -Clinical Debridement Subcutaneous -Tissue Removed Subcutaneous -Post Debridement (cm) - Length 0.5 -Post Debridement (cm) - Width 0.6 -Post Debridement (cm) - Depth 0.2 -Total Square (Post) (cm) 0.30 -Area of Debridement (cm) - Length 0.5 -Area of Debridement (cm) - Width 0.6 -Total Square (Area) (cm) 0.30 -Tunneling No -Undermining/Tunneling No -Circular Undermining No -Wound/Ulcer Outcome Not Healed -Ulcer Cleansing Rinsed/ Irrigated with Saline -Foul Odor after Cleansing No -Bioengineered Tissue No -Bleeding Controlled with Pressure -Treatment Response Procedure Tolerated Well -Debridement - Subq, 1st 20sq cm Yes Pain Scale: 0-10 Numeric Is Patient Pain Free? Yes - Nurse 3 - General Ulcer D/C NN Start: 12/22/24 13:20 Freq: Status: Active Protocol: Activity Type Activity Date Activity User E-sign Co-sign Detail Recorded Client Recorded Date Recorded By Document 12/22/24 13:51 DARY [id number] 12/22/24 13:51 12/22/24 13:51 Wound Care Center Nurse 3 #1 R Calf -Primary Dressing Applied Promogran Lenka Matter -Primary Dressing Covered/Secured with Dry Gauze & Roll Gauze, Secured with Tape -Promogran Lenka Matter 1 Pain Scale: 0-10 Numeric Is Patient Pain Free? 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 For wound care: (1) Cleanse the area with soap and water, pat to dry (2) Gentamicin ointment (3) Apply lightly-moistened Lenka to the wound case (4) dry gazue dressing/ABD pad and then Kerlix wrap, tape dressing to itself instead of skin (4) Change every other day if the area remains clean and dry, change more often as needed if it becomes soaked or soiled. Continue to utilize compression stockings daily. We will consider venous doppler in the future. Plan for return to the office in 1 week, sooner as needed.
--- NOTE | 2024-12-26 09:28 | WC ---
PHOTO-RIGHT CALF 12/22/24
[2024-12-29 13:31] VITALS: BP 142/93; PULSE 84; RESP 18; TEMP 36.2
--- NOTE | 2024-12-29 16:26 | PN.PCM_ITS ---
History of Present Illness Date of Service: 12/29/24 Chief Complaint: Right calf nonhealing wound History of Wound: Mr. Stephane Redmond is a 64 y/o male who presents to the wound center today for ongoing management of his R posterior calf ulceration. He has previously been following with Chacha Dunham here but due to scheduling difficulties is seeing me for the next few weeks. He reports this calf ulcer has been present since around Mid-August, he really cannot pinpoint what may have provoked this. He does recall that remotely he had a thorny apple injure this calf and he subsequently had thorns/material come to the surface later on however he has not observed any such foreign material/body this time. He reports that initial treatment here was with a product that included silver and he felt he noticed improvement on that product; more recently it seems to have stalled a bit. He has some redness around the wound which he reports is fairly stable. He has not had increased pain. He reports mild drainage. He is not diabetic. He does not smoke. He has noticed some irritation around the wound edges which seems to correspond to where the adaptic contacts his skin. He has a R meniscus tear and had plans to proceed with arthroscopic intervention but the wound must be healed in order for him to proceed. Subjective Subjective Unfortunately, the wound has continued to look worse over this last week despite changing the dressings so it would appear the worsened appearance is more likely due to infection vs contact dermatitis. His wound cultures did grow 1+ staph bacteria which is resistant to many usual oral antibiotics and unfortunately the gentamicin does not have good activity against it either. Objective Data Objective Data Vital Signs: Vital Signs Temp Pulse Resp BP O2 Del Method 97.2 F L 84 18 142/93 H Room Air 12/29/24 13:31 12/29/24 13:31 12/29/24 13:31 12/29/24 13:31 12/29/24 13:31 Oxygen Delivery Method Room Air Lab / Micro Data Micro: Microbiology 12/22/24 13:36 Wound - Leg, Right Gram Stain - Final 12/22/24 13:36 Wound - Leg, Right Wound Culture - Final Staphylococcus aureus 12/22/24 13:36 Wound - Leg, Right Anaerobic Culture - Final No anaerobic bacteria isolated. Charges/Coding Procedures Integumentary 111xxx-113xx: 85285 Luisa subq tissue 20 sq cm/< Physical Exam Const alert, oriented x3 and no apparent distress General Appearance: cooperative and comfortable HEENT normocephalic, head/scalp atraumatic, hearing grossly normal bilaterally, external ears normal and external nose normal Eyes General Eye: normal appearance of both eyes Neck General: normal visual inspection Resp Effort and Inspection: able to speak in complete sentences; Negative for labored, grunting or stridor Extremity Extremity Narrative: Trace edema bilateral lower extremities; spider veins bilaterally without any prominent larger varicosities, no significant hemosiderin deposition or lipodermatosclerosis. Skin Wound Narrative: R posterior calf ulceration with red/pink granular base without significant bioburden/slough. There is increased skin breakdown in the previously dermatitic periwound area Debridement Note Debridement Note Wound debrided: R posterior calf Laterality: Right Type of Debridement: Selective debridement Anesthesia Used: 5% Lidocaine Gel Depth: Down to and including healthy tissue Percentage of wound debrided: 100 Instrument Used: 3mm curette Tissue Removed: slough, bioburden Severity: Fat Layer Exposed Amount of bleeding with debridement: None Patient tolerated procedure: Patient tolerated procedure well Post-Debridement Measurements and Additional Note: Post-Debridement Measurements/Treatment - Nurse 1 - General Ulcer Assessment Start: 12/22/24 13:20 Freq: Status: Active Protocol: LUIS ARMANDO Activity Type Activity Date Activity User E-sign Co-sign Detail Recorded Client Recorded Date Recorded By Document 12/22/24 13:20 [id number] 12/22/24 13:26 KW Document 12/29/24 13:31 [id number] 12/29/24 13:33 KW 12/22/24 12/29/24 13:20 13:31 - Today's Visit Information Type of service Follow-up Visit Follow-up Visit (Physician/MEASUREMENT AND VERIFICATION ENGINEER (Physician/MEASUREMENT AND VERIFICATION ENGINEER ) ) Arrival Mode Ambulatory Ambulatory Patient Identification Verified (Name & Yes ) Vital Signs Temperature (97.8 F-99.1 F) 97.9 F 97.2 F L Temperature Source Temporal Temporal Pulse Rate (60-100) 66 84 Pulse Location Monitor Monitor Respiratory Rate (12-18) 18 18 Respiratory rate source Observation Observation Oxygen Delivery Method Room Air Room Air Blood Pressure (90/60-120/80) 140/73 H 142/93 H Blood Pressure Mean (mm Hg) 95 109 Source Monitor Monitor Position Semi-Fowlers Semi-Fowlers Blood Pressure Location Right Arm Left Arm History Since Last Visit- (Skip if this is Patient's initial visit) Have you changed medications since your No No last visit? Any new allergies or adverse reactions No No Had a fall/change in ADL's that may No No increase risk of falls Signs or symptoms of abuse and/or No No neglect since last visit Have you been in the hospital since your No No last visit? Has dressing in place as prescribed Yes Yes Has compression in place as prescribed Yes Yes Has offloadiing in place as prescribed N/A N/A Experienced any changes in pain level or No No management Left Footwear Regular Shoe Regular Shoe Right Footwear Regular Shoe Regular Shoe Pain Scale: 0-10 Numeric Is Patient Pain Free? Yes Yes WC - Nurse 1 - General Ulcer Measurement Start: 12/22/24 13:20 Freq: Status: Active Protocol: Activity Type Activity Date Activity User E-sign Co-sign Detail Recorded Client Recorded Date Recorded By Document 12/22/24 13:20 KW [id number] 12/22/24 13:26 KW Edit Result 12/22/24 13:20 KW (1) [id number] 12/22/24 13:27 KW Document 12/29/24 13:31 KW [id number] 12/29/24 13:33 KW (1) Right Calf (cm) => 49.6 Right Ankle (cm) => 28.1 12/22/24 12/29/24 13:20 13:31 Wound Center Nurse 1 #1 R Calf cluster -Current Size (cm) - Length 0.6 3.6 -Current Size (cm) - Width 2.9 4 -Current Size (cm) - Depth 0.2 0.1 -Total Square Cm 1.74 14.4 -Date of Last Picture (Recall this 12/22/24 12/29/24 field) -Exudate Amt Medium Large -Exudate Type Serosanguineous Serosanguineous -Wound Margin Distinct, Distinct, Outline Outline Attached Attached -Granulation Amt Large (67-100%) Medium (34-66%) -Granulation Quality Red Red -Necrosis Amt Small (1-33%) Medium (34-66%) -Necrotic Tissue Type Adherent Slough Adherent Slough -Texture (Za-wound Skin Appearance) Assessed Assessed,Rash -Moisture (Za-wound Skin Appearance) Assessed Assessed -Color (Za-wound Skin Appearance) Assessed Assessed, Erythema -Temperature (Za-wound Skin No Abnormality No Abnormality Appearance) (Pt Warm) (Pt Warm) -Tenderness on Palpation (Za-wound No No Skin Appearance) -Ulcer Cleansing Rinsed/ Soap and Water Irrigated with Saline -Foul Odor after Cleansing No No -Anesthetic Used 5% Lidocaine 5% Lidocaine Gel Gel Right Calf (cm) 49.6 Right Ankle (cm) 28.1 WC - Nurse 2 - General Ulcer CM Notes Start: 12/22/24 13:20 Freq: Status: Active Protocol: Activity Type Activity Date Activity User E-sign Co-sign Detail Recorded Client Recorded Date Recorded By Document 12/22/24 13:35 [id number] 12/22/24 13:38 Document 12/29/24 13:45 [id number] 12/29/24 13:53 12/22/24 12/29/24 13:35 13:45 Wound Center Nurse 2 #1 R Calf cluster -Time 13:36 13:45 -Correct Patient Yes Yes -Correct Side, Site, Position Yes Yes -Correct Procedure Yes Yes -Procedure Performed Yes Yes -Type of Procedure Debridement Debridement -Clinical Debridement Subcutaneous Subcutaneous -Tissue Removed Subcutaneous Subcutaneous -Post Debridement (cm) - Length 0.5 2.5 -Post Debridement (cm) - Width 0.6 5.0 -Post Debridement (cm) - Depth 0.2 0.3 -Total Square (Post) (cm) 0.30 12.50 -Area of Debridement (cm) - Length 0.5 2.5 -Area of Debridement (cm) - Width 0.6 5.0 -Total Square (Area) (cm) 0.30 12.50 -Tunneling No No -Undermining/Tunneling No No -Circular Undermining No No -Wound/Ulcer Outcome Not Healed Not Healed -Ulcer Cleansing Rinsed/ Rinsed/ Irrigated with Irrigated with Saline Saline -Foul Odor after Cleansing No No -Bioengineered Tissue No No -Bleeding Controlled with Pressure Pressure -Treatment Response Procedure Procedure Tolerated Well Tolerated Well -Offloading No -Debridement - Subq, 1st 20sq cm Yes Yes Pain Scale: 0-10 Numeric Is Patient Pain Free? Yes Yes WC - Nurse 3 - General Ulcer D/C NN Start: 12/22/24 13:20 Freq: Status: Active Protocol: Activity Type Activity Date Activity User E-sign Co-sign Detail Recorded Client Recorded Date Recorded By Document 12/22/24 13:51 [id number] 12/22/24 13:51 Document 12/29/24 14:05 [facility] [id number] 12/29/24 14:06 [facility] 12/22/24 12/29/24 13:51 14:05 Wound Care Center Nurse 3 #1 R Calf cluster -Ulcer Cleansing Rinsed/ Irrigated with Saline -Foul Odor after Cleansing No -Primary Dressing Applied Promogran Aquacel AG 4x4 Lenka Matter -Other Dressing abd pad -Primary Dressing Covered/Secured with Dry Gauze & Dry Gauze & Roll Gauze, Roll Gauze, Secured with Secured with Tape Tape -Aquacel AG 4x4 2 -Promogran Lenka Matter 1 RLE -Tubular Bandage Single Layer -Size of Tubigrip Used Size E -Size E ($) 1 -Other pt puts his own compression on top Treatment Response Procedure Tolerated Well Pain Scale: 0-10 Numeric Is Patient Pain Free? 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 Per C&S results, will prescribe Linezolid x 14 days. I advise taking probiotics as well. For wound care: (1) Cleanse the area with soap and water, pat to dry (2) Apply Aquacel (4) Apply dry gazue dressing/ABD pad and then Kerlix wrap, tape dressing to itself instead of skin (4) Change every other day if the area remains clean and dry, change more often as needed if it becomes soaked or soiled. Continue to utilize compression stockings daily. We will consider venous doppler in the future. Plan for courtesy visit as I am out next week and then return to see me in 2 weeks.
--- NOTE | 2024-12-30 09:56 | WC ---
PHOTO-RIGHT CALF 12/29/24
[2025-01-05 09:08] VITALS: BP 151/70; PULSE 69; RESP 14; TEMP 35.6
--- NOTE | 2025-01-05 09:35 | PCM.WC.PN ---
History of Present Illness Date of Service: 01/05/25 Chief Complaint: Right calf nonhealing wound History of Wound: Mr. Stephane Redmond is a 64 y/o male who presents to the wound center today for ongoing management of his R posterior calf ulceration. He has previously been following with Chacha Dunham here but due to scheduling difficulties is seeing me for the next few weeks. He reports this calf ulcer has been present since around Mid-August, he really cannot pinpoint what may have provoked this. He does recall that remotely he had a thorny apple injure this calf and he subsequently had thorns/material come to the surface later on however he has not observed any such foreign material/body this time. He reports that initial treatment here was with a product that included silver and he felt he noticed improvement on that product; more recently it seems to have stalled a bit. He has some redness around the wound which he reports is fairly stable. He has not had increased pain. He reports mild drainage. He is not diabetic. He does not smoke. He has noticed some irritation around the wound edges which seems to correspond to where the adaptic contacts his skin. He has a R meniscus tear and had plans to proceed with arthroscopic intervention but the wound must be healed in order for him to proceed. Progress of Wound: Courtesy visit: Being seen here for ulcer of right lower extremity. He states that since being on antibiotics, there has been some improvement. No new concerns reported at this time. Objective Data Objective Data Vital Signs: Vital Signs Temp Pulse Resp BP O2 Del Method 96.0 F L 69 14 151/70 H Room Air 01/05/25 09:08 01/05/25 09:08 01/05/25 09:08 01/05/25 09:08 12/29/24 13:31 Oxygen Delivery Method Room Air Lab / Micro Data Micro: Microbiology 12/22/24 13:36 Wound - Leg, Right Gram Stain - Final 12/22/24 13:36 Wound - Leg, Right Wound Culture - Final Staphylococcus aureus 12/22/24 13:36 Wound - Leg, Right Anaerobic Culture - Final No anaerobic bacteria isolated. Charges/Coding Procedures Integumentary 111xxx-113xx: [id number] Luisa subq tissue 20 sq cm/< Physical Exam Const alert, oriented x3 and no apparent distress General Appearance: cooperative and comfortable HEENT normocephalic, head/scalp atraumatic and hearing grossly normal bilaterally Eyes EOMs intact bilaterally General Eye: normal appearance of both eyes Neck full ROM General: normal visual inspection Resp normal respiratory effort Effort and Inspection: able to speak in complete sentences Extremity General Extremity: edema Skin Wounds: wounds noted size Size: See clinical note, bed granulating well and with slough, margins well approximated, no odor and surrounding erythema Neuro oriented x3, CN's II-XII intact bilaterally and moves all extremities Psych mental status grossly normal, thought process normal and cooperative Debridement Note Debridement Note Wound debrided: Right lower extremity (posterior/calf) Type of Debridement: Excisional debridement Anesthesia Used: 5% Lidocaine Gel Depth: in the subcutaneous layer Percentage of wound debrided: 100 Instrument Used: 5mm curette Tissue Removed: Slough and devitalized tissue Severity: Fat Layer Exposed Amount of bleeding with debridement: Mild Bleeding Controlled with: Pressure Patient tolerated procedure: Patient tolerated procedure well Post-Debridement Measurements and Additional Note: Post-Debridement Measurements/Treatment - Nurse 1 - General Ulcer Assessment Start: 12/22/24 13:20 Freq: Status: Active Protocol: LUIS ARMANDO Activity Type Activity Date Activity User E-sign Co-sign Detail Recorded Client Recorded Date Recorded By Document 12/22/24 13:20 KW [id number] 12/22/24 13:26 KW Document 12/29/24 13:31 KW [id number] 12/29/24 13:33 KW Document 01/05/25 09:08 ML [id number] 01/05/25 09:13 ML 12/22/24 12/29/24 01/05/25 13:20 13:31 09:08 - Today's Visit Information Type of service Follow-up Visit Follow-up Visit Follow-up Visit (Physician/PLASTER MOLDER (Physician/PLASTER MOLDER (Physician/PLASTER MOLDER ) ) ) Arrival Mode Ambulatory Ambulatory Ambulatory Patient Identification Verified (Name & Yes Yes ) Patient Requires Transmission-Based No Precautions Vital Signs Temperature (97.8 F-99.1 F) 97.9 F 97.2 F L 96.0 F L Temperature Source Temporal Temporal Temporal Pulse Rate (60-100) 66 84 69 Pulse Location Monitor Monitor Monitor Respiratory Rate (12-18) 18 18 14 Respiratory rate source Observation Observation Observation Oxygen Delivery Method Room Air Room Air Blood Pressure (90/60-120/80) 140/73 H 142/93 H 151/70 H Blood Pressure Mean (mm Hg) 95 109 97 Source Monitor Monitor Monitor Position Semi-Fowlers Semi-Fowlers Sitting Blood Pressure Location Right Arm Left Arm Right Arm History Since Last Visit- (Skip if this is Patient's initial visit) Have you changed medications since your No No No last visit? Any new allergies or adverse reactions No No No Had a fall/change in ADL's that may No No No increase risk of falls Signs or symptoms of abuse and/or No No No neglect since last visit Have you been in the hospital since your No No No last visit? Has dressing in place as prescribed Yes Yes Yes Has compression in place as prescribed Yes Yes Yes Has offloadiing in place as prescribed N/A N/A N/A Experienced any changes in pain level or No No No management Left Footwear Regular Shoe Regular Shoe Right Footwear Regular Shoe Regular Shoe Pain Scale: 0-10 Numeric Is Patient Pain Free? Yes Yes Yes WC - Nurse 1 - General Ulcer Measurement Start: 12/22/24 13:20 Freq: Status: Active Protocol: Activity Type Activity Date Activity User E-sign Co-sign Detail Recorded Client Recorded Date Recorded By Document 12/22/24 13:20 KW [id number] 12/22/24 13:26 KW Edit Result 12/22/24 13:20 KW (1) [id number] 12/22/24 13:27 KW Document 12/29/24 13:31 KW [id number] 12/29/24 13:33 KW Document 01/05/25 09:08 ML [id number] 01/05/25 09:13 ML (1) Right Calf (cm) => 49.6 Right Ankle (cm) => 28.1 12/22/24 12/29/24 01/05/25 13:20 13:31 09:08 Wound Center Nurse 1 #1 R Calf cluster -Current Size (cm) - Length 0.6 3.6 2.5 -Current Size (cm) - Width 2.9 4 4.5 -Current Size (cm) - Depth 0.2 0.1 0.1 -Total Square Cm 1.74 14.4 11. -Date of Last Picture (Recall this 12/22/24 12/29/24 field) -Exudate Amt Medium Large -Exudate Type Serosanguineous Serosanguineous Serosanguineous -Wound Margin Distinct, Distinct, Outline Outline Attached Attached -Granulation Amt Large (67-100%) Medium (34-66%) -Granulation Quality Red Red -Slough/Fibrin Yes -Necrosis Amt Small (1-33%) Medium (34-66%) -Necrotic Tissue Type Adherent Slough Adherent Slough Adherent Slough -Texture (Za-wound Skin Appearance) Assessed Assessed,Rash Assessed -Moisture (Za-wound Skin Appearance) Assessed Assessed Assessed -Color (Za-wound Skin Appearance) Assessed Assessed, Assessed Erythema -Temperature (Za-wound Skin No Abnormality No Abnormality No Abnormality Appearance) (Pt Warm) (Pt Warm) (Pt Warm) -Tenderness on Palpation (Za-wound No No No Skin Appearance) -Ulcer Cleansing Rinsed/ Soap and Water Rinsed/ Irrigated with Irrigated with Saline Saline -Foul Odor after Cleansing No No No -Anesthetic Used 5% Lidocaine 5% Lidocaine 5% Lidocaine Gel Gel Gel Right Calf (cm) 49.6 Right Ankle (cm) 28.1 WC - Nurse 2 - General Ulcer CM Notes Start: 12/22/24 13:20 Freq: Status: Active Protocol: Activity Type Activity Date Activity User E-sign Co-sign Detail Recorded Client Recorded Date Recorded By Document 12/22/24 13:35 [id number] 12/22/24 13:38 Document 12/29/24 13:45 [id number] 12/29/24 13:53 Document 01/05/25 09:19 [id number] 01/05/25 09:21 12/22/24 12/29/24 01/05/25 13:35 13:45 09:19 Wound Center Nurse 2 #1 R Calf cluster -Time 13:36 13:45 09:19 -Correct Patient Yes Yes Yes -Correct Side, Site, Position Yes Yes Yes -Correct Procedure Yes Yes Yes -Procedure Performed Yes Yes Yes -Type of Procedure Debridement Debridement Debridement -Clinical Debridement Subcutaneous Subcutaneous Subcutaneous -Tissue Removed Subcutaneous Subcutaneous Subcutaneous -Post Debridement (cm) - Length 0.5 2.5 3.0 -Post Debridement (cm) - Width 0.6 5.0 5.5 -Post Debridement (cm) - Depth 0.2 0.3 0.1 -Total Square (Post) (cm) 0.30 12.50 16.50 -Area of Debridement (cm) - Length 0.5 2.5 3.0 -Area of Debridement (cm) - Width 0.6 5.0 5.5 -Total Square (Area) (cm) 0.30 12.50 16.50 -Tunneling No No No -Undermining/Tunneling No No No -Circular Undermining No No No -Wound/Ulcer Outcome Not Healed Not Healed Not Healed -Ulcer Cleansing Rinsed/ Rinsed/ Rinsed/ Irrigated with Irrigated with Irrigated with Saline Saline Saline -Foul Odor after Cleansing No No No -Bioengineered Tissue No No No -Bleeding Controlled with Pressure Pressure Pressure -Treatment Response Procedure Procedure Procedure Tolerated Well Tolerated Well Tolerated Well -Offloading No No -Debridement - Subq, 1st 20sq cm Yes Yes Yes Pain Scale: 0-10 Numeric Is Patient Pain Free? Yes Yes Yes - Nurse 3 - General Ulcer D/C NN Start: 12/22/24 13:20 Freq: Status: Active Protocol: Activity Type Activity Date Activity User E-sign Co-sign Detail Recorded Client Recorded Date Recorded By Document 12/22/24 13:51 [id number] 12/22/24 13:51 Document 12/29/24 14:05 [facility] [id number] 12/29/24 14:06 [facility] Document 01/05/25 09:21 [id number] 01/05/25 09:29 12/22/24 12/29/24 01/05/25 13:51 14:05 09:21 Wound Care Center Nurse 3 #1 R Calf cluster -Ulcer Cleansing Rinsed/ Rinsed/ Irrigated with Irrigated with Saline Saline -Foul Odor after Cleansing No No -Primary Dressing Applied Promogran Aquacel AG 4x4 Aquacel AG 4x4 Lenka Matter -Other Dressing abd pad -Primary Dressing Covered/Secured with Dry Gauze & Dry Gauze & Dry Gauze & Roll Gauze, Roll Gauze, Roll Gauze, Secured with Secured with Secured with Tape Tape Tape -Aquacel AG 4x4 2 1 -Promogran Lenka Matter 1 RLE -Tubular Bandage Single Layer Single Layer -Size of Tubigrip Used Size E Size F -Size E ($) 1 -Size F ($) 1 -Other pt puts his own compression on top Treatment Response Procedure Tolerated Well Pain Scale: 0-10 Numeric Is Patient Pain Free? 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 As above, he states that there has been some improvement since going on antibiotics. No changes at this time. Continue Aquacel Ag, Kerlix and gauze. Continue optimal protein and dietary intake. Continue other chronic wound care management as previously discussed by food stylist. His questions were answered and he was advised to let us know if he had any further questions or concerns. Follow-up in a week with food stylist or sooner if needed. This note was generated with [employer] dictation software. It may contain incorrect words, spelling, and punctuation that were not noted in checking the note before signing.
== END 2025-01-10 23:59 | disposition home or self-care (01) ==
LOC: WC 09:15
PROVIDERS: PCP Family Medicine; Visit Provider Physician Assistant
DX: L97.212 Non-pressure chronic ulcer of right calf with fat layer exposed (principal); R60.0 Localized edema
CPT/HCPCS: 11042; 87070; 87075; 87077; 87186; 87205

== ENCOUNTER → 2025-01-26 | Outpatient (CLI) | payer MEDICARE, OTHER, SELFPAY ==
[2025-01-26 11:39] LABS: AST(SGOT) 22 U/L (<=37); Alanine Aminotransfer ALT/SGPT 32 U/L (<=46); Albumin, Serum 4.0 g/dL (3.4-4.8); Alkaline Phosphatase 70 U/L (40-129); Anion Gap 14 (5-15); BUN 17 mg/dL (4-19); BUN/Creat Ratio 12.5 RATIO (10-20); Calcium,Total 9.7 mg/dL (7.6-11.0); Carbon Dioxide 21.8 mmol/L (21.0-32.0); Chloride 104 mmol/L (98-108); Globulin 3.1 g/dL (2.2-4.2); Glucose 97 mg/dL (70-99); Magnesium 2.4 mg/dL (1.5-2.2); Potassium 4.3 mmol/L (3.3-5.1)
== END | disposition home or self-care (01) ==
LOC: LAB 09:32
PROVIDERS: PCP Family Medicine; Referring Provider Internal Medicine Cardiovascular Disease; Visit Provider Internal Medicine Cardiovascular Disease
DX: I10 Essential (primary) hypertension (principal); I48.91 Unspecified atrial fibrillation; I47.29 Other ventricular tachycardia; R00.2 Palpitations
CPT/HCPCS: 36415; 80053; 83735; 84443

== ENCOUNTER 2025-02-09 13:30 | Outpatient (RCR) | payer MEDICARE, OTHER, SELFPAY ==
[2025-01-12 13:57] VITALS: BP 141/79; PULSE 66; RESP 14; TEMP 36.4
--- NOTE | 2025-01-12 18:04 | PCM.WC.PN ---
History of Present Illness Date of Service: 01/13/25 Chief Complaint: Right calf nonhealing wound History of Wound: Mr. Stephane Redmond is a 64 y/o male who presents to the wound center today for ongoing management of his R posterior calf ulceration. He has previously been following with Chacha Dunham here but due to scheduling difficulties is seeing me for the next few weeks. He reports this calf ulcer has been present since around Mid-August, he really cannot pinpoint what may have provoked this. He does recall that remotely he had a thorny apple injure this calf and he subsequently had thorns/material come to the surface later on however he has not observed any such foreign material/body this time. He reports that initial treatment here was with a product that included silver and he felt he noticed improvement on that product; more recently it seems to have stalled a bit. He has some redness around the wound which he reports is fairly stable. He has not had increased pain. He reports mild drainage. He is not diabetic. He does not smoke. He has noticed some irritation around the wound edges which seems to correspond to where the adaptic contacts his skin. He has a R meniscus tear and had plans to proceed with arthroscopic intervention but the wound must be healed in order for him to proceed. Subjective Subjective He has noticed improvement in the wound overall with antibiotic therapy; he completed 14 days of Linezolid. He has a few new small areas of superficial skin breakdown secondary to adhesive banadage. Objective Data Objective Data Vital Signs: Vital Signs Temp Pulse Resp BP 97.5 F L 66 14 141/79 H 01/12/25 13:57 01/12/25 13:57 01/12/25 13:57 01/12/25 13:57 Charges/Coding Procedures Integumentary 111xxx-113xx: [id number] Luisa subq tissue 20 sq cm/< Physical Exam Const alert, oriented x3 and no apparent distress General Appearance: cooperative and comfortable HEENT normocephalic, head/scalp atraumatic, hearing grossly normal bilaterally, external ears normal and external nose normal Eyes General Eye: normal appearance of both eyes Neck General: normal visual inspection Resp Effort and Inspection: able to speak in complete sentences; Negative for labored, grunting or stridor Extremity Extremity Narrative: Trace edema bilateral lower extremities; spider veins bilaterally without any prominent larger varicosities, no significant hemosiderin deposition or lipodermatosclerosis. Skin Wound Narrative: R posterior calf ulceration with red/pink granular base without significant bioburden/slough. Original ulcerated area continues to improve in appearance; the new areas of skin breakdown that were noted 2 weeks ago are improving. There is resolved erythema, warmth. Debridement Note Debridement Note Wound debrided: R posterior calf Laterality: Right Type of Debridement: Selective debridement Anesthesia Used: 5% Lidocaine Gel Depth: Down to and including healthy tissue Percentage of wound debrided: 100 Instrument Used: 3mm curette Tissue Removed: slough, bioburden Severity: Fat Layer Exposed Amount of bleeding with debridement: None Patient tolerated procedure: Patient tolerated procedure well Post-Debridement Measurements and Additional Note: Post-Debridement Measurements/Treatment - Nurse 1 - General Ulcer Assessment Start: 01/12/25 13:57 Freq: Status: Active Protocol: LUIS ARMANDO Activity Type Activity Date Activity User E-sign Co-sign Detail Recorded Client Recorded Date Recorded By Document 01/12/25 13:57 ML [id number] 01/12/25 14:03 ML 01/12/25 13:57 WC - Today's Visit Information Type of service Follow-up 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 Any new allergies or adverse reactions No Had a fall/change in ADL's that may No increase risk of falls Signs or symptoms of abuse and/or No neglect since last visit Have you been in the hospital since your No last visit? Has dressing in place as prescribed Yes Has compression in place as prescribed N/A Has offloadiing in place as prescribed N/A Experienced any changes in pain level or No management Pain Scale: 0-10 Numeric Is Patient Pain Free? Yes - Nurse 1 - General Ulcer Measurement Start: 01/12/25 13:57 Freq: Status: Active Protocol: Activity Type Activity Date Activity User E-sign Co-sign Detail Recorded Client Recorded Date Recorded By Document 01/12/25 13:57 ML [id number] 01/12/25 14:03 ML 01/12/25 13:57 Wound Center Nurse 1 #1 R Calf Lateral cluster -Current Size (cm) - Length 4 -Current Size (cm) - Width 5 -Current Size (cm) - Depth 0.1 -Total Square Cm 20 -Exudate Amt Medium -Exudate Type Serosanguineous -Granulation Amt Medium (34-66%) -Necrosis Amt Medium (34-66%) -Necrotic Tissue Type Adherent Slough -Texture (Za-wound Skin Appearance) Assessed -Moisture (Za-wound Skin Appearance) Assessed -Color (Za-wound Skin Appearance) Assessed -Temperature (Za-wound Skin No Abnormality Appearance) (Pt Warm) -Tenderness on Palpation (Za-wound No Skin Appearance) -Ulcer Cleansing Rinsed/ Irrigated with Saline -Foul Odor after Cleansing No -Anesthetic Used 5% Lidocaine Gel WC - Nurse 2 - General Ulcer CM Notes Start: 01/12/25 13:57 Freq: Status: Active Protocol: Activity Type Activity Date Activity User E-sign Co-sign Detail Recorded Client Recorded Date Recorded By Document 01/12/25 14:09 [id number] 01/12/25 14:16 01/12/25 14:09 Wound Center Nurse 2 #2 R Posterior Calf cluster -Time 14:15 -Correct Patient Yes -Correct Side, Site, Position Yes -Correct Procedure Yes -Procedure Performed Yes -Type of Procedure Debridement -Clinical Debridement Subcutaneous -Tissue Removed Subcutaneous -Post Debridement (cm) - Length 2.3 -Post Debridement (cm) - Width 3.8 -Post Debridement (cm) - Depth 0.1 -Total Square (Post) (cm) 8.74 -Area of Debridement (cm) - Length 2.3 -Area of Debridement (cm) - Width 3.8 -Total Square (Area) (cm) 8.74 -Tunneling No -Undermining/Tunneling No -Circular Undermining No -Wound/Ulcer Outcome Not Healed -Ulcer Cleansing Rinsed/ Irrigated with Saline -Foul Odor after Cleansing No -Bioengineered Tissue No -Bleeding Controlled with Pressure -Treatment Response Procedure Tolerated Well -Debridement - Subq, 1st 20sq cm Yes -Debridement, SubQ, ea addt'l 20sq cm 1 or part thereof #1 R Calf Lateral cluster -Time 14:11 -Correct Patient Yes -Correct Side, Site, Position Yes -Correct Procedure Yes -Procedure Performed Yes -Type of Procedure Debridement -Clinical Debridement Subcutaneous -Tissue Removed Subcutaneous -Post Debridement (cm) - Length 2.4 -Post Debridement (cm) - Width 5.3 -Post Debridement (cm) - Depth 0.1 -Total Square (Post) (cm) 12.72 -Area of Debridement (cm) - Length 2.4 -Area of Debridement (cm) - Width 5.3 -Total Square (Area) (cm) 12.72 -Tunneling No -Undermining/Tunneling No -Circular Undermining No -Wound/Ulcer Outcome Not Healed -Ulcer Cleansing Rinsed/ Irrigated with Saline -Foul Odor after Cleansing No -Bioengineered Tissue No -Bleeding Controlled with Pressure -Treatment Response Procedure Tolerated Well -Offloading No -Debridement - Subq, 1st 20sq cm Yes Pain Scale: 0-10 Numeric Is Patient Pain Free? Yes - Nurse 3 - General Ulcer D/C NN Start: 01/12/25 13:57 Freq: Status: Active Protocol: Activity Type Activity Date Activity User E-sign Co-sign Detail Recorded Client Recorded Date Recorded By Document 01/12/25 14:32 [id number] 01/12/25 14:33 RB 01/12/25 14:32 Wound Care Center Nurse 3 #2 R Posterior Calf cluster -Ulcer Cleansing Rinsed/ Irrigated with Saline -Primary Dressing Applied Aquacel AG 4x4 -Primary Dressing Covered/Secured with Dry Gauze & Roll Gauze, Secured with Tape -Aquacel AG 4x4 1 #1 R Calf Lateral cluster -Ulcer Cleansing Rinsed/ Irrigated with Saline -Other Dressing aquacel AG -Primary Dressing Covered/Secured with Dry Gauze & Roll Gauze, Secured with Tape RLE -Tubular Bandage Single Layer -Size of Tubigrip Used Size E -Size E ($) 1 -Stockings Yes: pt own stocking over tubiugrip Treatment Response Procedure Tolerated Well Pain Scale: 0-10 Numeric Is Patient Pain Free? 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 The wound appears improved, no signs of active infection on exam today. For wound care: (1) Cleanse the area with soap and water, pat to dry (2) Apply Aquacel (4) Apply dry gazue dressing/ABD pad and then Kerlix wrap, tape dressing to itself instead of skin (4) Change every other day if the area remains clean and dry, change more often as needed if it becomes soaked or soiled. Continue to utilize compression stockings daily. Return to the wound center in 1 week, sooner as needed.
[2025-01-19 13:23] VITALS: BP 127/68; PULSE 76; RESP 18; TEMP 36
--- NOTE | 2025-01-19 13:30 | WC ---
pt states he was [facility] ED for bladder spasms and enlarged prostate this past weekend.
--- NOTE | 2025-01-19 17:47 | PCM.WC.PN ---
History of Present Illness Date of Service: 01/19/25 Chief Complaint: Right calf nonhealing wound History of Wound: Mr. Stephane Redmond is a 64 y/o male who presents to the wound center today for ongoing management of his R posterior calf ulceration. He has previously been following with Chacha Dunham here but due to scheduling difficulties is seeing me for the next few weeks. He reports this calf ulcer has been present since around Mid-August, he really cannot pinpoint what may have provoked this. He does recall that remotely he had a thorny apple injure this calf and he subsequently had thorns/material come to the surface later on however he has not observed any such foreign material/body this time. He reports that initial treatment here was with a product that included silver and he felt he noticed improvement on that product; more recently it seems to have stalled a bit. He has some redness around the wound which he reports is fairly stable. He has not had increased pain. He reports mild drainage. He is not diabetic. He does not smoke. He has noticed some irritation around the wound edges which seems to correspond to where the adaptic contacts his skin. He has a R meniscus tear and had plans to proceed with arthroscopic intervention but the wound must be healed in order for him to proceed. Subjective Subjective Patient returns to the wound center today for evaluation; he reports this past week he'd noticed a small fluid-filled blister develop near the wound that then ruptured and has left behind a new area of skin breakdown. He is concerned that this could represent recurrent infection. Otherwise, he has unfortunately this week been dealing with severe bladder spasms and is in noticeable discomfort from this; he does have close urology follow-up. Objective Data Objective Data Vital Signs: Vital Signs Temp Pulse Resp BP 96.8 F L 76 18 127/68 H 01/19/25 13:23 01/19/25 13:23 01/19/25 13:23 01/19/25 13:23 Charges/Coding Procedures Integumentary 111xxx-113xx: [id number] Luisa subq tissue 20 sq cm/< Physical Exam Const alert, oriented x3 and no apparent distress General Appearance: cooperative and comfortable HEENT normocephalic, head/scalp atraumatic, hearing grossly normal bilaterally, external ears normal and external nose normal Eyes General Eye: normal appearance of both eyes Neck General: normal visual inspection Resp Effort and Inspection: able to speak in complete sentences; Negative for labored, grunting or stridor Extremity Extremity Narrative: Trace edema bilateral lower extremities; spider veins bilaterally without any prominent larger varicosities, no significant hemosiderin deposition or lipodermatosclerosis. Skin Wound Narrative: R posterior calf ulceration with red/pink granular base without significant bioburden/slough. Original ulcerated area continues to improve in appearance; the newer areas of skin breakdown from recent infection are improving in appearance overall. No current fluid-filled blisters. No significant erythema, warmth, foul odor, excess drainage. Debridement Note Debridement Note Wound debrided: R posterior calf Laterality: Right Type of Debridement: Selective debridement Anesthesia Used: 5% Lidocaine Gel Depth: Down to and including healthy tissue Percentage of wound debrided: 100 Instrument Used: 3mm curette Tissue Removed: slough, bioburden Severity: Fat Layer Exposed Amount of bleeding with debridement: None Patient tolerated procedure: Patient tolerated procedure well Post-Debridement Measurements and Additional Note: Post-Debridement Measurements/Treatment - Nurse 1 - General Ulcer Assessment Start: 01/12/25 13:57 Freq: Status: Active Protocol: [email or web address] Activity Type Activity Date Activity User E-sign Co-sign Detail Recorded Client Recorded Date Recorded By Document 01/12/25 13:57 ML [id number] 01/12/25 14:03 ML Document 01/19/25 13:23 RB [id number] 01/19/25 13:27 RB Edit Result 01/19/25 13:23 RB (1) [id number] 01/19/25 13:32 RB (1) Have you been in the hospital since your No => Yes last visit? Is Patient Pain Free? Yes => No RLE - Description => Aching - Intensity => 4 - Duration (hours) => Acute - Pain Behavior => Withdrawal from => Touch - Pain Aggravating Factors => Exercise/Activity, => Debridement - Alleviating Factors/Interventions => Medication - Effectiveness of Alleviating Factor/ => Moderately Intervention => effective 01/12/25 01/19/25 13:57 13:23 - Today's Visit Information Type of service Follow-up Visit Follow-up Visit (Physician/OPERATIONS CHIEF (Physician/OPERATIONS CHIEF ) ) Arrival Mode Ambulatory Ambulatory Transfer Assistance None Accompanied by Patient Identification Verified (Name & Yes Yes ) Patient Requires Transmission-Based No No Precautions Vital Signs Temperature (97.8 F-99.1 F) 97.5 F L 96.8 F L Temperature Source Temporal Temporal Pulse Rate (60-100) 66 76 Pulse Location Monitor Monitor Respiratory Rate (12-18) 14 18 Respiratory rate source Observation Observation Blood Pressure (90/60-120/80) 141/79 H 127/68 H Blood Pressure Mean (mm Hg) 99 87 Source Monitor Monitor Position Sitting Semi-Fowlers Blood Pressure Location Left Arm Right Arm History Since Last Visit- (Skip if this is Patient's initial visit) Have you changed medications since your No No last visit? Any new allergies or adverse reactions No No Had a fall/change in ADL's that may No No increase risk of falls Signs or symptoms of abuse and/or No No neglect since last visit Have you been in the hospital since your No Yes last visit? Has dressing in place as prescribed Yes Yes Has compression in place as prescribed N/A Yes Has offloadiing in place as prescribed N/A N/A Experienced any changes in pain level or No No management Left Footwear Regular Shoe Right Footwear Regular Shoe Pain Scale: 0-10 Numeric Is Patient Pain Free? Yes No RLE -Description Aching -Intensity 4 -Duration (hours) Acute -Pain Behavior Withdrawal from Touch -Pain Aggravating Factors Exercise/ Activity, Debridement -Alleviating Factors/Interventions Medication -Effectiveness of Alleviating Factor/ Moderately Intervention effective WC - Nurse 1 - General Ulcer Measurement Start: 01/12/25 13:57 Freq: Status: Active Protocol: Activity Type Activity Date Activity User E-sign Co-sign Detail Recorded Client Recorded Date Recorded By Document 01/12/25 13:57 ML [id number] 01/12/25 14:03 ML Document 01/19/25 13:23 RB [id number] 01/19/25 13:27 RB Edit Result 01/19/25 13:23 RB (1) [id number] 01/19/25 13:32 RB (1) #1 R Calf Lateral cluster - Color (Za-wound Skin Appearance) Assessed => Assessed,Erythema 01/12/25 01/19/25 13:57 13:23 Wound Center Nurse 1 #2 R Posterior Calf cluster -Combined with other wound No -Current Size (cm) - Length 0.1 -Current Size (cm) - Width 0.1 -Current Size (cm) - Depth 0.1 -Total Square Cm 0.01 -Photo Taken Yes -Tunneling No -Undermining/Tunneling No -Circular Undermining No -Exudate Amt Medium -Exudate Type Serosanguineous -Wound Margin Distinct, Outline Attached -Granulation Amt Medium (34-66%) -Granulation Quality [place] -Slough/Fibrin Yes -Necrosis Amt Medium (34-66%) -Necrotic Tissue Type Adherent Slough -Structure Exposed N/A -Texture (Za-wound Skin Appearance) Assessed -Moisture (Za-wound Skin Appearance) Assessed -Color (Za-wound Skin Appearance) Assessed -Temperature (Za-wound Skin No Abnormality Appearance) (Pt Warm) -Tenderness on Palpation (Za-wound No Skin Appearance) -Ulcer Cleansing Wound Cleanser -Foul Odor after Cleansing No -Anesthetic Used 5% Lidocaine Gel #1 R Calf Lateral cluster -Combined with other wound No -Current Size (cm) - Length 4 3 -Current Size (cm) - Width 5 4 -Current Size (cm) - Depth 0.1 0.1 -Total Square Cm 20 12 -Photo Taken Yes -Tunneling No -Undermining/Tunneling No -Circular Undermining No -Exudate Amt Medium Medium -Exudate Type Serosanguineous Serosanguineous -Wound Margin Distinct, Outline Attached -Granulation Amt Medium (34-66%) Medium (34-66%) -Granulation Quality [place] -Slough/Fibrin Yes -Necrosis Amt Medium (34-66%) Medium (34-66%) -Necrotic Tissue Type Adherent Slough Adherent Slough -Structure Exposed N/A -Texture (Za-wound Skin Appearance) Assessed Assessed -Moisture (Za-wound Skin Appearance) Assessed Assessed -Color (Za-wound Skin Appearance) Assessed Assessed, Erythema -Temperature (Za-wound Skin No Abnormality No Abnormality Appearance) (Pt Warm) (Pt Warm) -Tenderness on Palpation (Za-wound No No Skin Appearance) -Ulcer Cleansing Rinsed/ Wound Cleanser Irrigated with Saline -Foul Odor after Cleansing No No -Anesthetic Used 5% Lidocaine 5% Lidocaine Gel Gel Lower Limb Edema Present Yes Right Calf (cm) 46.5 Right Ankle (cm) 26 WC - Nurse 2 - General Ulcer CM Notes Start: 01/12/25 13:57 Freq: Status: Active Protocol: Activity Type Activity Date Activity User E-sign Co-sign Detail Recorded Client Recorded Date Recorded By Document 01/12/25 14:09 GM [id number] 01/12/25 14:16 GM Edit Result 01/12/25 14:09 GM (1) [id number] 01/18/25 13:19 GM Document 01/19/25 13:33 GM [id number] 01/19/25 13:38 GM (1) #1 R Calf Lateral cluster - Debridement - Subq, 1st 20sq cm Yes => No 01/12/25 01/19/25 14:09 13:33 Wound Center Nurse 2 #2 R Posterior Calf cluster -Time 14:15 13:33 -Correct Patient Yes Yes -Correct Side, Site, Position Yes Yes -Correct Procedure Yes Yes -Procedure Performed Yes Yes -Type of Procedure Debridement Debridement -Clinical Debridement Subcutaneous Subcutaneous -Tissue Removed Subcutaneous Subcutaneous -Post Debridement (cm) - Length 2.3 0.3 -Post Debridement (cm) - Width 3.8 0.8 -Post Debridement (cm) - Depth 0.1 0.1 -Total Square (Post) (cm) 8.74 0.24 -Area of Debridement (cm) - Length 2.3 0.3 -Area of Debridement (cm) - Width 3.8 0.8 -Total Square (Area) (cm) 8.74 0.24 -Tunneling No No -Undermining/Tunneling No No -Circular Undermining No No -Wound/Ulcer Outcome Not Healed Not Healed -Ulcer Cleansing Rinsed/ Rinsed/ Irrigated with Irrigated with Saline Saline -Foul Odor after Cleansing No No -Bioengineered Tissue No No -Bleeding Controlled with Pressure Pressure -Treatment Response Procedure Procedure Tolerated Well Tolerated Well -Offloading No -Debridement - Subq, 1st 20sq cm Yes Yes -Debridement, SubQ, ea addt'l 20sq cm 1 or part thereof #1 R Calf Lateral cluster -Time 14:11 13:34 -Correct Patient Yes Yes -Correct Side, Site, Position Yes Yes -Correct Procedure Yes Yes -Procedure Performed Yes Yes -Type of Procedure Debridement Debridement -Clinical Debridement Subcutaneous Subcutaneous -Tissue Removed Subcutaneous Subcutaneous -Post Debridement (cm) - Length 2.4 2.7 -Post Debridement (cm) - Width 5.3 4.5 -Post Debridement (cm) - Depth 0.1 0.1 -Total Square (Post) (cm) 12.72 12.15 -Area of Debridement (cm) - Length 2.4 2.7 -Area of Debridement (cm) - Width 5.3 4.5 -Total Square (Area) (cm) 12.72 12.15 -Tunneling No No -Undermining/Tunneling No No -Circular Undermining No No -Wound/Ulcer Outcome Not Healed Not Healed -Ulcer Cleansing Rinsed/ Rinsed/ Irrigated with Irrigated with Saline Saline -Foul Odor after Cleansing No No -Bioengineered Tissue No No -Bleeding Controlled with Pressure Pressure -Treatment Response Procedure Procedure Tolerated Well Tolerated Well -Offloading No No -Debridement - Subq, 1st 20sq cm No Yes Pain Scale: 0-10 Numeric Is Patient Pain Free? Yes Yes - Nurse 3 - General Ulcer D/C NN Start: 01/12/25 13:57 Freq: Status: Active Protocol: Activity Type Activity Date Activity User E-sign Co-sign Detail Recorded Client Recorded Date Recorded By Document 01/12/25 14:32 RB [id number] 01/12/25 14:33 RB Document 01/19/25 13:51 RB [id number] 01/19/25 13:53 RB 01/12/25 01/19/25 14:32 13:51 Wound Care Center Nurse 3 #2 R Posterior Calf cluster -Ulcer Cleansing Rinsed/ Rinsed/ Irrigated with Irrigated with Saline Saline -Primary Dressing Applied Aquacel AG 4x4 Aquacel AG 4x4 -Other Dressing ABD -Primary Dressing Covered/Secured with Dry Gauze & Dry Gauze & Roll Gauze, Roll Gauze Secured with Tape -Aquacel AG 4x4 1 1 #1 R Calf Lateral cluster -Ulcer Cleansing Rinsed/ Rinsed/ Irrigated with Irrigated with Saline Saline -Other Dressing aquacel AG aquacel AG -Primary Dressing Covered/Secured with Dry Gauze & Dry Gauze & Roll Gauze, Roll Gauze, Secured with Secured with Tape Tape -Other Covering ABD RLE -Tubular Bandage Single Layer -Size of Tubigrip Used Size E -Size E ($) 1 -Stockings Yes: pt own Yes: pt own stocking over tubigrip and tubiugrip own support stocking Treatment Response Procedure Procedure Tolerated Well Tolerated Well Pain Scale: 0-10 Numeric Is Patient Pain Free? 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 Will obtain updated wound culture and prescribe antibiotic therapy per C&S results. For wound care: (1) Cleanse the area with soap and water, pat to dry (2) Apply Gentamicin ointment (3) Apply Aquacel (4) Apply dry gazue dressing/ABD pad and then Kerlix wrap, tape dressing to itself instead of skin (4) Change every other day if the area remains clean and dry, change more often as needed if it becomes soaked or soiled. Continue to utilize compression stockings daily. Return to the wound center in 1 week, sooner as needed.
--- NOTE | 2025-01-20 10:30 | WC ---
PHOTO-RIGHT CALF 01/19/25
[2025-01-26 13:09] VITALS: BP 126/70; PULSE 87; RESP 18; TEMP 36.1
--- NOTE | 2025-01-26 13:44 | PCM.WC.PN ---
History of Present Illness Date of Service: 01/26/25 Chief Complaint: Right calf nonhealing wound History of Wound: Mr. Stephane Redmond is a 64 y/o male who presents to the wound center today for ongoing management of his R posterior calf ulceration. He has previously been following with Chacha Dunham here but due to scheduling difficulties is seeing me for the next few weeks. He reports this calf ulcer has been present since around Mid-August, he really cannot pinpoint what may have provoked this. He does recall that remotely he had a thorny apple injure this calf and he subsequently had thorns/material come to the surface later on however he has not observed any such foreign material/body this time. He reports that initial treatment here was with a product that included silver and he felt he noticed improvement on that product; more recently it seems to have stalled a bit. He has some redness around the wound which he reports is fairly stable. He has not had increased pain. He reports mild drainage. He is not diabetic. He does not smoke. He has noticed some irritation around the wound edges which seems to correspond to where the adaptic contacts his skin. He has a R meniscus tear and had plans to proceed with arthroscopic intervention but the wound must be healed in order for him to proceed. Subjective Subjective He returns today for re-evaluation of his R calf wounds. From a wound perspective, things seem to be going well. There has been significant reduction in size. C&S grew only very rare Brevundimonas. Objective Data Objective Data Vital Signs: Vital Signs Temp Pulse Resp BP 97 F L 87 18 126/70 H 01/26/25 13:09 01/26/25 13:09 01/26/25 13:09 01/26/25 13:09 Lab / Micro Data Micro: Microbiology 01/19/25 13:38 Wound - Leg, Right Gram Stain - Final 01/19/25 13:38 Wound - Leg, Right Wound Culture - Final Brevundimonas diminuta/vesicul 01/19/25 13:38 Wound - Leg, Right Anaerobic Culture - Final No growth in 5 days. Charges/Coding Visit Charges Office Visits / Consults: [id number] OV L3 Est 20min Physical Exam Const alert, oriented x3 and no apparent distress General Appearance: cooperative and comfortable HEENT normocephalic, head/scalp atraumatic, hearing grossly normal bilaterally, external ears normal and external nose normal Eyes General Eye: normal appearance of both eyes Neck General: normal visual inspection Resp Effort and Inspection: able to speak in complete sentences; Negative for labored, grunting or stridor Extremity Extremity Narrative: Trace edema bilateral lower extremities; spider veins bilaterally without any prominent larger varicosities, no significant hemosiderin deposition or lipodermatosclerosis. Skin Wound Narrative: R posterior calf ulceration is epithelialized. Much of the R lateral calf ulceration cluster has epithelialized. No significant erythema, warmth, foul odor, excess drainage. Debridement Note Debridement Note No debridement was completed: No debridement was completed today Post-Debridement Measurements and Additional Note: Post-Debridement Measurements/Treatment - Nurse 1 - General Ulcer Assessment Start: 01/12/25 13:57 Freq: Status: Active Protocol: LUIS ARMANDO Activity Type Activity Date Activity User E-sign Co-sign Detail Recorded Client Recorded Date Recorded By Document 01/12/25 13:57 ML [id number] 01/12/25 14:03 ML Document 01/19/25 13:23 RB [id number] 01/19/25 13:27 RB Edit Result 01/19/25 13:23 RB (1) [id number] 01/19/25 13:32 RB Document 01/26/25 13:09 RB [id number] 01/26/25 13:13 RB (1) Have you been in the hospital since your No => Yes last visit? Is Patient Pain Free? Yes => No RLE - Description => Aching - Intensity => 4 - Duration (hours) => Acute - Pain Behavior => Withdrawal from => Touch - Pain Aggravating Factors => Exercise/Activity, => Debridement - Alleviating Factors/Interventions => Medication - Effectiveness of Alleviating Factor/ => Moderately Intervention => effective 01/12/25 01/19/25 01/26/25 13:57 13:23 13:09 - Today's Visit Information Type of service Follow-up Visit Follow-up Visit Follow-up Visit (Physician/BUILDING CONSTRUCTION FOREMAN (Physician/BUILDING CONSTRUCTION FOREMAN (Physician/BUILDING CONSTRUCTION FOREMAN ) ) ) Arrival Mode Ambulatory Ambulatory Ambulatory Transfer Assistance None None Accompanied by Patient Identification Verified (Name & Yes Yes Yes ) Patient Requires Transmission-Based No No No Precautions Vital Signs Temperature (97.8 F-99.1 F) 97.5 F L 96.8 F L 97 F L Temperature Source Temporal Temporal Temporal Pulse Rate (60-100) 66 76 87 Pulse Location Monitor Monitor Monitor Respiratory Rate (12-18) 14 18 18 Respiratory rate source Observation Observation Observation Blood Pressure (90/60-120/80) 141/79 H 127/68 H 126/70 H Blood Pressure Mean (mm Hg) 99 87 88 Source Monitor Monitor Monitor Position Sitting Semi-Fowlers Sitting Blood Pressure Location Left Arm Right Arm Right Arm History Since Last Visit- (Skip if this is Patient's initial visit) Have you changed medications since your No No No last visit? Any new allergies or adverse reactions No No No Had a fall/change in ADL's that may No No No increase risk of falls Signs or symptoms of abuse and/or No No No neglect since last visit Have you been in the hospital since your No Yes Yes last visit? Has dressing in place as prescribed Yes Yes Yes Has compression in place as prescribed N/A Yes Yes Has offloadiing in place as prescribed N/A N/A N/A Experienced any changes in pain level or No No No management Left Footwear Regular Shoe Regular Shoe Right Footwear Regular Shoe Regular Shoe Pain Scale: 0-10 Numeric Is Patient Pain Free? Yes No Yes RLE -Description Aching -Intensity 4 -Duration (hours) Acute -Pain Behavior Withdrawal from Touch -Pain Aggravating Factors Exercise/ Activity, Debridement -Alleviating Factors/Interventions Medication -Effectiveness of Alleviating Factor/ Moderately Intervention effective WC - Nurse 1 - General Ulcer Measurement Start: 01/12/25 13:57 Freq: Status: Active Protocol: Activity Type Activity Date Activity User E-sign Co-sign Detail Recorded Client Recorded Date Recorded By Document 01/12/25 13:57 ML [id number] 01/12/25 14:03 ML Document 01/19/25 13:23 RB [id number] 01/19/25 13:27 RB Edit Result 01/19/25 13:23 RB (1) [id number] 01/19/25 13:32 RB Document 01/26/25 13:09 RB [id number] 01/26/25 13:13 RB (1) #1 R Calf Lateral cluster - Color (Za-wound Skin Appearance) Assessed => Assessed,Erythema 01/12/25 01/19/25 01/26/25 13:57 13:23 13:09 Wound Center Nurse 1 #2 R Posterior Calf cluster -Combined with other wound No No -Current Size (cm) - Length 0.1 0.1 -Current Size (cm) - Width 0.1 0.1 -Current Size (cm) - Depth 0.1 0.1 -Total Square Cm 0.01 0.01 -Photo Taken Yes Yes -Tunneling No No -Undermining/Tunneling No No -Circular Undermining No No -Exudate Amt Medium Small -Exudate Type Serosanguineous Serosanguineous -Wound Margin Distinct, Distinct, Outline Outline Attached Attached -Granulation Amt Medium (34-66%) Medium (34-66%) -Granulation Quality [place] -Slough/Fibrin Yes Yes -Necrosis Amt Medium (34-66%) Medium (34-66%) -Necrotic Tissue Type Adherent Slough Adherent Slough -Structure Exposed N/A N/A -Texture (Za-wound Skin Appearance) Assessed Excoriation -Moisture (Za-wound Skin Appearance) Assessed Assessed -Color (Za-wound Skin Appearance) Assessed Assessed -Temperature (Za-wound Skin No Abnormality No Abnormality Appearance) (Pt Warm) (Pt Warm) -Tenderness on Palpation (Za-wound No No Skin Appearance) -Ulcer Cleansing Wound Cleanser -Foul Odor after Cleansing No -Anesthetic Used 5% Lidocaine 5% Lidocaine Gel Gel #1 R Calf Lateral cluster -Combined with other wound No No -Current Size (cm) - Length 4 3 0.1 -Current Size (cm) - Width 5 4 0.1 -Current Size (cm) - Depth 0.1 0.1 0.1 -Total Square Cm 20 12 0.01 -Photo Taken Yes Yes -Tunneling No No -Undermining/Tunneling No No -Circular Undermining No No -Exudate Amt Medium Medium Small -Exudate Type Serosanguineous Serosanguineous Serosanguineous -Wound Margin Distinct, Distinct, Outline Outline Attached Attached -Granulation Amt Medium (34-66%) Medium (34-66%) Medium (34-66%) -Granulation Quality [place] -Slough/Fibrin Yes Yes -Necrosis Amt Medium (34-66%) Medium (34-66%) Small (1-33%) -Necrotic Tissue Type Adherent Slough Adherent Slough Adherent Slough -Structure Exposed N/A N/A -Texture (Za-wound Skin Appearance) Assessed Assessed Assessed, Excoriation -Moisture (Za-wound Skin Appearance) Assessed Assessed Assessed -Color (Za-wound Skin Appearance) Assessed Assessed, Assessed Erythema -Temperature (Za-wound Skin No Abnormality No Abnormality No Abnormality Appearance) (Pt Warm) (Pt Warm) (Pt Warm) -Tenderness on Palpation (Za-wound No No No Skin Appearance) -Ulcer Cleansing Rinsed/ Wound Cleanser Wound Cleanser Irrigated with Saline -Foul Odor after Cleansing No No No -Anesthetic Used 5% Lidocaine 5% Lidocaine 5% Lidocaine Gel Gel Gel -Wound Comment(s) pt stated he was hospitalized for blood clotts and of bladder Lower Limb Edema Present Yes Yes Right Calf (cm) 46.5 48.2 Right Ankle (cm) 26 26 WC - Nurse 2 - General Ulcer CM Notes Start: 01/12/25 13:57 Freq: Status: Active Protocol: Activity Type Activity Date Activity User E-sign Co-sign Detail Recorded Client Recorded Date Recorded By Document 01/12/25 14:09 GM [id number] 01/12/25 14:16 GM Edit Result 01/12/25 14:09 GM (1) [id number] 01/18/25 13:19 GM Document 01/19/25 13:33 GM [id number] 01/19/25 13:38 GM Document 01/26/25 13:17 GM [id number] 01/26/25 13:19 GM (1) #1 R Calf Lateral cluster - Debridement - Subq, 1st 20sq cm Yes => No 01/12/25 01/19/25 01/26/25 14:09 13:33 13:17 Wound Center Nurse 2 #2 R Posterior Calf cluster -Time 14:15 13:33 13:17 -Correct Patient Yes Yes Yes -Correct Side, Site, Position Yes Yes Yes -Correct Procedure Yes Yes No -Procedure Performed Yes Yes No -Type of Procedure Debridement Debridement -Clinical Debridement Subcutaneous Subcutaneous -Tissue Removed Subcutaneous Subcutaneous -Post Debridement (cm) - Length 2.3 0.3 -Post Debridement (cm) - Width 3.8 0.8 -Post Debridement (cm) - Depth 0.1 0.1 -Total Square (Post) (cm) 8.74 0.24 -Area of Debridement (cm) - Length 2.3 0.3 -Area of Debridement (cm) - Width 3.8 0.8 -Total Square (Area) (cm) 8.74 0.24 -Tunneling No No No -Undermining/Tunneling No No No -Circular Undermining No No No -Wound/Ulcer Outcome Not Healed Not Healed Healed- Epithelialized -Ulcer Cleansing Rinsed/ Rinsed/ Irrigated with Irrigated with Saline Saline -Foul Odor after Cleansing No No -Bioengineered Tissue No No -Bleeding Controlled with Pressure Pressure NA -Treatment Response Procedure Procedure Tolerated Well Tolerated Well -Offloading No No -Debridement - Subq, 1st 20sq cm Yes Yes -Debridement, SubQ, ea addt'l 20sq cm 1 or part thereof #1 R Calf Lateral cluster -Time 14:11 13:34 13:18 -Correct Patient Yes Yes Yes -Correct Side, Site, Position Yes Yes Yes -Correct Procedure Yes Yes No -Procedure Performed Yes Yes No -Type of Procedure Debridement Debridement -Clinical Debridement Subcutaneous Subcutaneous -Tissue Removed Subcutaneous Subcutaneous -Post Debridement (cm) - Length 2.4 2.7 0.5 -Post Debridement (cm) - Width 5.3 4.5 0.4 -Post Debridement (cm) - Depth 0.1 0.1 0.1 -Total Square (Post) (cm) 12.72 12.15 0.20 -Area of Debridement (cm) - Length 2.4 2.7 -Area of Debridement (cm) - Width 5.3 4.5 -Total Square (Area) (cm) 12.72 12.15 -Tunneling No No No -Undermining/Tunneling No No No -Circular Undermining No No No -Wound/Ulcer Outcome Not Healed Not Healed Not Healed -Ulcer Cleansing Rinsed/ Rinsed/ Irrigated with Irrigated with Saline Saline -Foul Odor after Cleansing No No No -Bioengineered Tissue No No No -Bleeding Controlled with Pressure Pressure NA -Treatment Response Procedure Procedure Tolerated Well Tolerated Well -Offloading No No No -Debridement - Subq, 1st 20sq cm No Yes Pain Scale: 0-10 Numeric Is Patient Pain Free? Yes Yes Yes WC - Nurse 3 - General Ulcer D/C NN Start: 01/12/25 13:57 Freq: Status: Active Protocol: Activity Type Activity Date Activity User E-sign Co-sign Detail Recorded Client Recorded Date Recorded By Document 01/12/25 14:32 RB [id number] 01/12/25 14:33 RB Document 01/19/25 13:51 RB [id number] 01/19/25 13:53 RB Document 01/26/25 13:30 RB [id number] 01/26/25 13:31 RB 01/12/25 01/19/25 01/26/25 14:32 13:51 13:30 Wound Care Center Nurse 3 #2 R Posterior Calf cluster -Ulcer Cleansing Rinsed/ Rinsed/ Rinsed/ Irrigated with Irrigated with Irrigated with Saline Saline Saline -Primary Dressing Applied Aquacel AG 4x4 Aquacel AG 4x4 Aquacel AG 4x4 -Other Dressing ABD ABD -Primary Dressing Covered/Secured with Dry Gauze & Dry Gauze & Dry Gauze & Roll Gauze, Roll Gauze Roll Gauze, Secured with Secured with Tape Tape -Aquacel AG 4x4 1 1 1 #1 R Calf Lateral cluster -Ulcer Cleansing Rinsed/ Rinsed/ Rinsed/ Irrigated with Irrigated with Irrigated with Saline Saline Saline -Other Dressing aquacel AG aquacel AG aquacel AG -Primary Dressing Covered/Secured with Dry Gauze & Dry Gauze & Dry Gauze & Roll Gauze, Roll Gauze, Roll Gauze, Secured with Secured with Secured with Tape Tape Tape -Other Covering ABD RLE -Tubular Bandage Single Layer Single Layer -Size of Tubigrip Used Size E Size E -Size E ($) 1 1 -Stockings Yes: pt own Yes: pt own Yes: pt owb stocking over tubigrip and stocking tubiugrip own support stocking Treatment Response Procedure Procedure Procedure Tolerated Well Tolerated Well Tolerated Well Pain Scale: 0-10 Numeric Is Patient Pain Free? 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 Will continue topical gentamicin for now. For wound care: (1) Cleanse the area with soap and water, pat to dry (2) Apply Gentamicin ointment (3) Apply Aquacel (4) Apply dry gazue dressing/ABD pad and then Kerlix wrap, tape dressing to itself instead of skin (4) Change every other day if the area remains clean and dry, change more often as needed if it becomes soaked or soiled. Continue to utilize compression stockings daily. Return to the wound center in 2 weeks, sooner as needed.
--- NOTE | 2025-01-27 10:31 | WC ---
PHOTO-RLE LATERAL 01/26/25
[2025-02-09 13:24] VITALS: RESP 16; TEMP 36.3
--- NOTE | 2025-02-09 17:05 | PCM.WC.PN ---
History of Present Illness Date of Service: 02/09/25 Chief Complaint: Right calf nonhealing wound History of Wound: Mr. Stephane Redmond is a 64 y/o male who presents to the wound center today for ongoing management of his R posterior calf ulceration. He has previously been following with Chacha Dunham here but due to scheduling difficulties is seeing me for the next few weeks. He reports this calf ulcer has been present since around Mid-August, he really cannot pinpoint what may have provoked this. He does recall that remotely he had a thorny apple injure this calf and he subsequently had thorns/material come to the surface later on however he has not observed any such foreign material/body this time. He reports that initial treatment here was with a product that included silver and he felt he noticed improvement on that product; more recently it seems to have stalled a bit. He has some redness around the wound which he reports is fairly stable. He has not had increased pain. He reports mild drainage. He is not diabetic. He does not smoke. He has noticed some irritation around the wound edges which seems to correspond to where the adaptic contacts his skin. He has a R meniscus tear and had plans to proceed with arthroscopic intervention but the wound must be healed in order for him to proceed. Subjective Subjective He reports no drainage from his wound in about 1 week. It appears to be healed to him. No new wounds or areas of concern. Objective Data Objective Data Vital Signs: Vital Signs Temp Pulse Resp BP O2 Del Method 97.3 F L 87 16 126/70 H Room Air 02/09/25 13:24 01/26/25 13:09 02/09/25 13:24 01/26/25 13:09 02/09/25 13:24 Oxygen Delivery Method Room Air Lab / Micro Data Micro: Microbiology 01/19/25 13:38 Wound - Leg, Right Gram Stain - Final 01/19/25 13:38 Wound - Leg, Right Wound Culture - Final Brevundimonas diminuta/vesicul 01/19/25 13:38 Wound - Leg, Right Anaerobic Culture - Final No growth in 5 days. Charges/Coding Visit Charges Office Visits / Consults: [id number] OV L3 Est 20min Physical Exam Const alert, oriented x3 and no apparent distress General Appearance: cooperative and comfortable HEENT normocephalic, head/scalp atraumatic, hearing grossly normal bilaterally, external ears normal and external nose normal Eyes General Eye: normal appearance of both eyes Neck General: normal visual inspection Resp Effort and Inspection: able to speak in complete sentences; Negative for labored, grunting or stridor Extremity Extremity Narrative: Trace edema bilateral lower extremities; spider veins bilaterally without any prominent larger varicosities, no significant hemosiderin deposition or lipodermatosclerosis. Skin Wound Narrative: Remaining R calf wound has epithelialized. 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 I do recommend continuing to apply hydrogel and foam border dressing for ~10 days more for additional protection for the delicate new skin. I continue to encourage use of measured compression. He is discharged from the wound healing center today and will return as needed.
--- NOTE | 2025-02-10 07:52 | WC ---
PHOTO-RIGHT CALF 02/09/25
== END 2025-02-09 14:03 | disposition home or self-care (01) ==
LOC: WC 13:30
PROVIDERS: PCP Family Medicine; Visit Provider Physician Assistant
DX: L97.912 Non-pressure chronic ulcer of unspecified part of right lower leg with fat layer exposed (principal); N32.89 Other specified disorders of bladder
CPT/HCPCS: 11042; 11045; 87070; 87075; 87077; 87186; 87205; 99213; G0463

== ENCOUNTER → 2025-02-22 | Outpatient (CLI) | payer MEDICARE, OTHER, SELFPAY ==
--- NOTE | 2025-02-22 07:49 | ECHOCS_ITS ---
Reason For Study Reason For Study: Palpitations Procedure This was a 2D Doppler, Color Flow transthoracic echocardiogram. The study was technically difficult. Contrast injection was performed. Exam performed in department. Left Ventricle Normal LV size. Mild concentric left ventricular hypertrophy. The left ventricular ejection fraction is 65 %. Stage 1 diastolic dysfunction. Right Ventricle Normal right ventricle. Atria The left and right atria are normal. Mitral Valve Trivial mitral valve insufficiency. Tricuspid Valve Normal tricuspid valve. Aortic Valve Trisinus/trileaflet aortic valve. Trivial aortic valve insufficiency. Pulmonic Valve The pulmonic valve is not well visualized. Great Vessels Normal sized aortic root. Pericardium/Pleural No pericardial effusion. Medication 22 gauge I.V. with prn adaptor inserted into right arm. Diluted definity 2ml given slow IV push to enhance endocardial definition. MMode/2D Measurements & Calculations LVIDd: 5.8 cm IVSd: 1.1 cm Ao root diam: 3.4 cm LVIDs: 3.5 cm LVPWd: 1.2 cm RVDd: 3.9 cm FS: 38.9 % LAV(MOD-bp): 53.9 ml LVAd ap4: 40.1 cm2 SV(MOD-sp4): 86.0 ml LAV(MOD-bp) Indexed: 21.7 ml/m2 LVLd ap4: 9.5 cm SI(MOD-sp4): 34.6 ml/m2 LAV(MOD-sp2): 56.5 ml EDV(MOD-sp4): 139.5 ml LAV(MOD-sp4): 50.8 ml EDV(sp4-el): 143.4 ml LVAs ap4: 22.9 cm2 LVLs ap4: 8.5 cm ESV(MOD-sp4): 53.5 ml ESV(sp4-el): 52.4 ml EF(MOD-sp4): 61.6 % EF(sp4-el): 63.5 % SV(sp4-el): 91.0 ml LA A4 area: 18.9 cm2 LA dimension(2D): 4.0 cm RA A4 area: 14.0 cm2 TAPSE: 1.5 cm Time Measurements MV dec time: 0.23 sec Doppler Measurements & Calculations MV E max sandro: 90.2 cm/sec Lat Peak E' Sandro: 15.1 cm/sec Med Peak E' Sandro: 11.4 cm/sec MV A max sandro: 76.6 cm/sec E/E' lat: 6.0 E/E' med: 7.9 MV E/A: 1.2 MV V2 max: 108.7 cm/sec MV P1/2t max sandro: 110.7 cm/sec Ao V2 max: 160.1 cm/sec MV max P.7 mmHg MV P1/2t: 81.3 msec Ao max P.3 mmHg MV V2 mean: 54.8 cm/sec MV dec slope: 398.5 cm/sec2 Ao V2 mean: 108.0 cm/sec MV mean P.4 mmHg MVA(P1/2t): 2.7 cm2 Ao mean P.5 mmHg MV V2 VTI: 33.0 cm Ao V2 VTI: 34.9 cm PA V2 max: 109.5 cm/sec ECHO/Echo Complete W/ Contrast Interpretation Summary Mild concentric left ventricular hypertrophy. The left ventricular ejection fraction is 65 %. Stage 1 diastolic dysfunction. The study was technically difficult. Ordering Physician: Kasia Choi Referring Physician: Kasia Choi Performed By: Froylan Green [facility]
== END | disposition home or self-care (01) ==
LOC: CVS 07:44
PROVIDERS: PCP Family Medicine; Referring Provider Internal Medicine Cardiovascular Disease; Visit Provider Internal Medicine Cardiovascular Disease
DX: R00.2 Palpitations (principal)
CPT/HCPCS: 93306; Q9957; A4216; C8929

== ENCOUNTER → 2025-03-10 | Outpatient (CLI) | payer MEDICARE, OTHER, SELFPAY ==
--- NOTE | 2025-03-10 12:52 | CT_ITS ---
PROCEDURE: LIMITED CHEST CT CARDIAC ONLY 03/10/2025 REASON FOR EXAM: PALPITATIONS, SHORTNESS OF BREATH TECHNIQUE: Procedure Code: [id number] Modality: CT Procedure: LIMITED CHEST CT CARDIAC ONLY CONTRAST: Isovue 370 VOLUME: 100 mL One or more dose reduction techniques were used (e.g., Automated exposure control, adjustment of the mA and/or kV according to patient size, use of iterative reconstruction technique). RADIATION DOSE SUMMARY: CTDlvol: 61 mGy DLP: 2411.15 mGycm COMPARISON: None FINDINGS: No significant lymphadenopathy is seen. No coronary artery calcification is present. The heart is nonenlarged. The visualized portions of the lungs are unremarkable. CT/Limited Chest CT Cardiac Only IMPRESSION: Unremarkable examination. Reading Location: [place] [id number]
--- OUTSIDE RECORDS SUMMARY | 2025-03-10 13:04 | XMS RPT_ITS | CCD ---
Author Organization [facility] [place] [facility] Team Providers Care Utilities Equipment Repairer Name Role Phone ALEXANDRA ROBLES Unavailable Unavailable ALEXANDRA ROBLES Unavailable Unavailable ALEXANDRA ROBLES Unavailable Unavailable Abimael Elizabeth Primary Care Provider Abimael Elizabeth Primary Care Provider Abimael Elizabeth DO Primary Care Provider Abimael Elizabeth DO Primary Care Provider Abimael Elizabeth Attending Unavailable PROVIDER, UNKNOWN Referring Unavailable Abimael Elizabeth Primary Care Unavailable Abimael Elizabeth Primary Care Unavailable Mitzy Richter Attending Unavailable PROVIDER, UNKNOWN Referring Unavailable Abimael Elizabeth DO Primary Care Provider Abimael Elizabeth DO Primary Care Provider Flor Barfield DO Unavailable Flor Barfield DO Unavailable Reji Maradiaga MD Unavailable Dr. Abimael Elizabeth DO Primary Care Provider Dr. Suleiman Toribio MD Attending Provider Dr. Suleiman Toribio MD Referring Provider Roly SAUNDERS-CChacha Attending Provider Flor Davis NP Referring Provider Roly SAUNDERS-CChacha Other Provider Abimael Elizabeth DO Primary Care Provider ABIMAEL ELIZABETH Referring Unavailable ABIMAEL ELIZABETH Primary Care Unavailable Yola Flores Attending Provider Coco PA, Yola Other Provider Dr. Abimael Elizabeth DO Primary Care Physician Roly FINANCIAL PLANNING CONSULTANT-C, Chacha Attending Physician Roly FINANCIAL PLANNING CONSULTANT-C, Chacha Nurse Practitioner Coco STEVENSON, Yola Attending Physician Coco STEVENOSN, Yola Nurse Practitioner Nellie ZAVALETA, Dr. Baca Attending Physician NON STAFF Primary Care Provider Unavailabl e Israel DO, Roverto Baptiste Emergency Provider Dunia ZAVALETA, Augusto Admit Provider Augusto Duque MD Attending Provider Hitesh Nava MD Other Provider Kamaljit Bach MD Attending Provider Abimael Moseley MD Unavailable Hitesh Nava Consulting Unavailable Augusto Duque Admitting Unavailable Kamaljit Bach Attending Unavailable NON STAFF Primary Care Unavailable Gio Monge MD Unavailable Dr. Abimael Elizabeth DO Primary Care Physician Roly FINANCIAL PLANNING CONSULTANT-C, Chacha Attending Physician Roly FINANCIAL PLANNING CONSULTANT-C, Chacha Nurse Practitioner Flor Davis NP Referring Provider Dr. Abimael Elizabeth DO Referring Provider Dr. Kasia Choi MD Attending Physician Dr. Kasia Choi MD Referring Provider ABIMAEL ELIZABETH Primary Care Unavailable REJI MARADIAGA Attending Unavailable REJI MARADIAGA Attending Unavailable ABIMAEL ELIZABETH Primary Care Unavailable REJI MARADIAGA Attending Unavailable ABIMAEL ELIZABETH Primary Care Unavailable ABIMAEL ELIZABETH Primary Care Unavailable REJI MARADIAGA Attending Unavailable REJI MARADIAGA Referring Unavailable GLENN, ABIMALE Primary Care Unavailable MCCRORKTRESA Referring Unavailable TRESA JORDAN Attending Unavailable GLENN, ABIMAEL Primary Care Unavailable GLENN, ABIMAEL Primary Care Unavailable BYRON YIN Attending Unavailable EMIGDIO MORENO Attending Unavailable REJI MARADIAGA Consulting Unavailable GLENN, ABIMAEL Primary Care Unavailable MORTEZA RENE Admitting Unavailable GLENN, ABIMAEL Referring Unavailable GLENN, ABIMAEL Attending Unavailable GLENN, ABIMAEL Primary Care Unavailable Le, Lee K Attending Unavailable Le, Lee K Admitting Unavailable Glenn DO, Abimael D Primary Care Unavailable Phuong Ballard Attending Unavailable Glenn, Abimael D Primary Care Unavailable HERNANDEZ, SENAIT Referring Unavailable Sepulveda, Yola Consulting Unavailable HERNANDEZ, SENAIT Referring Unavailable Glenn, Abimael D Primary Care Unavailable Sepulveda, Yola Attending Unavailable Sepulveda, Yola Consulting Unavailable Glenn, Abimael D Primary Care Unavailable Sepulveda, Yola Consulting Unavailable Sepulveda, Yola Attending Unavailable HERNANDEZ, SENAIT Referring Unavailable Glenn, Abimael D Primary Care Unavailable Sepulveda, Yola Consulting Unavailable Sepulveda, Yola Attending Unavailable HERNANDEZ, SENAIT Referring Unavailable HERNANDEZ, SENAIT Referring Unavailable Dunham FINANCIAL PLANNING CONSULTANT, Chacha Consulting Unavailable Glenn, Abimael D Primary Care Unavailable Sepulveda, Yola Attending Unavailable Jimbo, Kasia Attending Unavailable Glenn, Abimael D Primary Care Unavailable Glenn, Abimael D Primary Care Unavailable HERNANDEZ, SENAIT Referring Unavailable Sepulveda, Yola Consulting Unavailable Sepulveda, Yola Attending Unavailable Glenn, Abimael D Primary Care Unavailable HERNADNEZ, SENAIT Referring Unavailable Sepulveda, Yola Consulting Unavailable Sepulveda, Yola Attending Unavailable Glenn, Abimael D Primary Care Unavailable HERNANDEZ, SENAIT Referring Unavailable Sepulveda, Yola Attending Unavailable Dunham FINANCIAL PLANNING CONSULTANT, Chacha Attending Unavailable Glenn, Abimael D Primary Care Unavailable HERNANDEZ, SENAIT Referring Unavailable HERNANDEZ, SENAIT Referring Unavailable Dunham FINANCIAL PLANNING CONSULTANT, Chacha Attending Unavailable Glenn, Abimael D Primary Care Unavailable HERNANDEZ, SENAIT Referring Unavailable Glenn, Abimael D Primary Care Unavailable Sepulveda, Yola Attending Unavailable Jimbo, Kasia Referring Unavailable Jimbo, Kasia Attending Unavailable Glenn, Abimael D Primary Care Unavailable Jimbo, Kasia Referring Unavailable Jimbo, Kasia Attending Unavailable Glenn, Abimael D Primary Care Unavailable HERNANDEZ, SENAIT Referring Unavailable Glenn, Abimael D Primary Care Unavailable Sepulveda, Yola Attending Unavailable Jimbo, Kasia Attending Unavailable Jimbo, Kasia Referring Unavailable Glenn, Abimael D Primary Care Unavailable Glenn, Abimael D Primary Care Unavailable Suleiman Toribio Referring Unavailable Suleiman Toribio Attending Unavailable Jimbo, Kasia Attending Unavailable Glenn, Abimael D Primary Care Unavailable Glenn, Abimael D Referring Unavailable Sepulveda, Yola Attending Unavailable Glenn, Abimael D Primary Care Unavailable HERNANDEZ, SENAIT Referring Unavailable Sepulveda, Yola Consulting Unavailable Glenn, Abimael D Primary Care Unavailable HERNANDEZ, SENAIT Referring Unavailable Sepulvdea, Yola Consulting Unavailable Sepulveda, Yola Attending Unavailable Allergies Allergy Classification Reported Allergen(s) Allergy Type Date of Onset Reaction(s) Facility (1 source) ALLERGIES NOT ON FILE; Translations: [ALLERGIES NOT ON FILE] Propensity to adverse reactions (disorder) [facility] 2 Repository (20 sources) House dust mite Propensity to adverse reactions 5 Unknown [facility] (12 sources) Mold Extract Drug Allergy 5 unknown [facility] (2 sources) Ragweed pollen; Translations: [ragweed pollen] Allergy to substance 5 unknown [facility] (2 sources) Environmental Allergies: Uncoded; Translations: [Environmental Allergies: Uncoded] Allergy to substance 5 unknown [facility] (1 source) Mold Extract Drug Allergy 5 [facility] Repository Medications Current Medications Medication Drug Class(es) Dates Sig (Normalized) Sig (Original) acetaminophen 325 mg / HYDROcodone bitartrate 5 mg oral tablet (20 sources) Opioid Agonist Start: 01-17-2025 End: 01-29-2025 Start: 12-03-2017 End: 01-16-2025 Hydrocodone-Acetaminophen 1 EACH tablet Discontinued 1 NMA PO EVERY 6 HOURS NEEDED as needed for Pain 5 December 03, 2017 9:35am January 16, 2025 11:31am Start: 12-03-2017 Hydrocodone-Ac etaminophen Active 1 EACH PO EVERY 6 HOURS NEEDED 20 December 03, 2017 8:35am ALPRAZolam 0.25 mg disintegrating oral tablet (1 source) Benzodiazepine Start: 03-05-2020 ALPRAZolam (NIRAVAM) dissolvable tablet 0.25 mg Antiarthritic Combination No.2 (Glucosamine-Chondro itin) 900 mg tablet (1 source) Start: 01-16-2025 ascorbic acid 60 mg / beta carotene 5000 unt / copper sulfate 40 mg / dl-alpha tocopheryl acetate 30 unt / sodium selenite 0.04 mg / zinc oxide 40 mg oral tablet (4 sources) Vitamin C take 1 tablet by mouth once daily before breakfast Multiple Vitamins-Minerals (THERAPEUTIC MULTIVITAMIN-MINERA LS) tablet Take 1 tablet by mouth every morning (before breakfast) 0 Active azelastine hydrochloride 0.137 mg/actuat / fluticasone propionate 0.05 mg/actuat metered dose nasal spray (1 source) Corticosteroid, Histamine-1 Receptor Antagonist Start: 01-16-2025 calcium chloride 0.0014 meq/ml / potassium chloride 0.004 meq/ml / sodium chloride 0.103 meq/ml / sodium lactate 0.028 meq/ml injectable solution (1 source) Start: 03-05-2020 lactated ringers infusion 1 ml diphenhydrAMINE hydrochloride 50 mg/ml cartridge (1 source) Histamine-1 Receptor Antagonist Start: 03-05-2020 End: 03-05-2020 diphenhydrAMINE (BENADRYL) injection 12.5 mg esomeprazole 40 mg delayed release oral capsule (20 sources) Proton Pump Inhibitor Start: 11-26-2017 End: 01-16-2025 take 1 capsule by mouth once daily Esomeprazole Magnesium (Nexium) 40 MG capsule Active 40 mg PO DAILY November 26, 2017 12:00am 2 ml fentaNYL 0.05 mg/ml injection (1 source) Opioid Agonist Start: 03-05-2020 fentaNYL (SUBLIMAZE) injection 100 mcg finasteride 5 mg oral tablet (20 sources) 5-alpha Reductase Inhibitor Start: 01-02-2025 End: 04-02-2025 take 1 tablet by mouth once daily finasteride (Proscar) 5 MG tablet Indications: Benign prostatic hyperplasia with nocturia Take 1 tablet (5 mg) by mouth daily. 90 tablet 3 01/02/2025 04/02/2025 Active 1 ml hydrALAZINE hydrochloride 20 mg/ml injection (1 source) Arteriolar Vasodilator Start: 03-05-2020 hydrALAZINE (APRESOLINE) injection 5 mg 1 ml HYDROmorphone hydrochloride 1 mg/ml cartridge (4 sources) Opioid Agonist Start: 03-05-2020 HYDROmorphone (DILAUDID) injection 0.5 mg Start: 03-05-2020 HYDROmorphone (DILAUDID) injection 0.25 mg Start: 03-05-2020 HYDROmorphone (DILAUDID) injection 1 mg hyoscyamine sulfate 0.125 mg disintegrating oral tablet (1 source) Start: 01-16-2025 take 1 tablet under the tongue every four hours as needed for muscle spasms 4 ml labetalol hydrochloride 5 mg/ml cartridge (1 source) beta-Adrenergic Blaze Start: 03-05-2020 labetalol (NORMODYNE;TRAND ATE) injection 5 mg Lacto 41-B.Animalis,Bifid-Fo s (Ultimate Probiotic-10 25 Billn) 1 EACH capsule (7 sources) Start: 11-26-2017 Start: 11-26-2017 Lacto 41-B.Ani malis,Bifid-Fos (Ultimate Probiotic-10 25 Billn) 1 EACH capsule Active 1 NMA PO DAILY November 26, 2017 12:00am Start: 11-26-2017 Lacto 41-B.Ani malis,Bifid-Fos (Ultimate Probiotic-10 25 Billn) 1 EACH capsule Active 1 EACH PO DAILY November 25, 2017 11:00pm lisinopril 10 mg oral tablet (20 sources) Angiotensin Converting Enzyme Inhibitor Start: 01-26-2025 take 1 tablet by mouth once daily Start: 01-26-2025 End: 01-26-2025 take 1 tablet by mouth once daily Lisinopril 10 mg tablet Discontinued 10 mg PO daily January 26, 2025 12:00am January 26, 2025 9:29am Start: 11-26-2017 End: 01-26-2025 take 20 mg by mouth once daily 20 mg, Oral, Daily, Fir st dose on 01/22/25 at 0900 loratadine 10 mg oral tablet (20 sources) Start: 11-26-2017 End: 01-24-2025 take 1 tablet by mouth once daily as needed 1 ml meperidine hydrochloride 50 mg/ml injection (1 source) Opioid Agonist Start: 03-05-2020 meperidine (DEMEROL) injection 12.5 mg metoprolol tartrate 25 mg oral tablet (2 sources) beta-Adrenergic Blaze Start: 01-26-2025 take 1 tablet by mouth twice daily Start: 01-26-2025 End: 01-26-2025 take 1 tablet by mouth twice daily Metoprolol Tartrate 25 mg tablet Discontinued 25 mg PO TWICE A DAY January 26, 2025 12:00am January 26, 2025 9:29am montelukast 10 mg oral tablet (20 sources) Leukotriene Receptor Antagonist Start: 11-26-2017 End: 01-24-2025 take 1 tablet by mouth once daily Multiple Vitamin (Multi-Vitamin) tablet (20 sources) take 1 tablet by mouth in the morning Multiple Vitamin (Multi-Vitamin) tablet Take 1 tablet by mouth in the morning. Suspended take 1 tablet by mouth in the mo rning Multiple Vitamin (Multi-Vitamin) tablet Take 1 tablet by mouth in the morning. Active take 1 tablet by mouth in the mo rning Multiple Vitamin (Multi-Vitamin) tablet Take 1 tablet by mouth in the morning. 0 Active Multiple Vitamins-Minerals (THERAPEUTIC MULTIVITAMIN-MINERALS) tablet (3 sources) take 1 tablet by mouth once daily before breakfast Multiple Vitamins-Minerals (THERAPEUTIC MULTIVITAMIN-MINERALS) tablet Take 1 tablet by mouth every morning (before breakfast) 0 Active take 1 tablet by mouth once dona y Multiple Vitamins-Minerals (THERAPEUTIC MULTIVITAMIN-MINERALS) tablet Take 1 tablet by mouth daily 0 Active Multivitamin tablet (1 source) Start: 01-16-2025 [place]-3 Fatty Acids (FISH OIL) 1200 MG CAPS (5 sources) take 1 capsule by mouth once daily before breakfast [place]-3 Fatty Acids (FISH OIL) 1200 MG CAPS Take 1,200 mg by mouth every morning (before breakfast) 0 Active take 1 capsule by mouth once alexa ly [place]-3 Fatty Acids (FISH OIL) 1200 MG CAPS Take 1,200 mg by mouth daily 0 Active Osjbo-7-Dte-Rjt-Lxx-Kikb Oil ([place]-3 2099 Softgel) 1 EACH capsule (7 sources) Start: 11-26-2017 take 3 capsules by mouth once daily Start: 11-26-2017 take 3 capsules by out once daily Quqoj-3-Xdg-Nmk-Kgx-Hdmh Oil ([place]-3 2100 Softgel) 1 EACH capsule Active 1 NMA PO DAILY November 26, 2017 12:00am Start: 11-26-2017 take 3 capsules by m out once daily Dyhqo-9-Tfi-Dnq-Dtu-Agap Oil ([place]-3 2100 Softgel) 1 EACH capsule Active 1 EACH PO DAILY November 25, 2017 11:00pm oxyCODONE (1 source) Opioid Agonist Start: 03-05-2020 End: 03-05-2020 oxyCODONE (ROXICODONE) immediate release tablet 5 mg phenazopyridine hydrochloride 200 mg oral tablet (18 sources) Start: 01-21-2025 End: 01-21-2025 take 200 mg by mouth once 200 mg, Oral, Once, On 01/21/25 at 1805, For 1 dose Start: 01-17-2025 End: 02-23-2025 take 1 tablet by mouth three times daily phenazopyridine (Pyridium) 200 MG tablet Take 1 tablet (200 mg) by mouth 3 times daily. 90 tablet 01/24/2025 02/23/2025 Active Probiotic Product (PROBIOTIC-10 PO) (1 source) Probiotic Produc t (PROBIOTIC-10 PO) Take by mouth 0 Active 1 ml promethazine hydrochloride 25 mg/ml injection (1 source) Phenothiazine Start: End: promethazine (PHENERGAN) injection 6.25 mg sildenafil 100 mg oral tablet (20 sources) Phosphodiesterase 5 Inhibitor Start: 023 End: 025 take 50-100 mg by mouth once daily as needed Start: 09-11-2021 take 0.5-1 tablets b y mouth once daily sildenafil (VIAGRA) 100 MG tablet take 1/2 to 1 tablet by mouth once daily 0 09/11/2021 Active sodium chloride flush 0.9 % injection 3 mL (1 source) Start: 01-23-2020 sodium chlorid e flush 0.9 % injection 3 mL sodium phosphate, dibasic 35.5 mg/ml / sodium phosphate, monobasic 96.4 mg/ml enema (2 sources) Start: 12-08-2022 End: 12-08-2022 sodium phosphate (Fleet) 7-19 GM/118ML enema enema Indications: Elevated PSA Insert 133 mL (1 enema) into the rectum Once for [address] 1 enema rectally once for 1 dose the morning of your procedure. 1 each 0 12/08/2022 12/08/2022 Active solifenacin succinate 10 mg oral tablet (17 sources) Cholinergic Muscarinic Antagonist Start: 02-10-2025 End: 03-12-2025 take 1 tablet by mouth twice daily solifenacin (VESIcare) 10 MG tablet Indications: Bladder spasms Take 1 tablet (10 mg) by mouth 2 times daily. Swallow tablet whole; do not crush, chew, or split. 60 tablet 3 02/10/2025 03/12/2025 Active Start: 01-20-2025 End: 02-19-2025 take 1 tablet by mouth once daily solifenacin (VESIcare) 10 MG tablet Indications: Bladder spasms Take 1 tablet (10 mg) by mouth daily. Swallow tablet whole; do not crush, chew, or split. 30 tablet 1 01/20/2025 02/10/2025 Discontinued (Reorder) Start: 01-17-2025 End: 07-16-2025 take 1 tablet by mouth once daily solifenacin (VESIcare) 5 MG tablet Indications: Bladder spasm Take 1 tablet (5 mg) by mouth daily. Swallow tablet whole; do not crush, chew, or split. 30 tablet 5 01/17/2025 01/24/2025 Discontinued (Stop taking at discharge) tamsulosin hydrochloride 0.4 mg oral capsule (20 sources) alpha-Adrenergic Blaze Start: 01-16-2025 take 2 capsules by mouth once daily Start: 01-02-2025 End: 04-02-2025 take 1 capsule by mouth twice daily 30 minutes after mealtime tamsulosin (Flomax) 0.4 MG 24 hr capsule Indications: Benign Prostatic Hypertrophy Take 1 capsule (0.4 mg) by mouth 2 times daily. Take 30 minutes after a meal. 180 capsule 3 01/02/2025 01/24/2025 Discontinued (Stop taking at discharge) Start: 02-13-2024 End: 01-24-2025 tamsulosin (Flomax) 0.4 MG 2 4 hr capsule 2 capsules Every 24 hours. 02/13/2024 Active Start: 06-15-2023 End: 06-14-2024 take 1 capsule by mouth twice daily 30 minutes after mealtime tamsulosin (Flomax) 0.4 MG 24 hr capsule Indications: Benign Prostatic Hypertrophy Take 1 capsule (0.4 mg) by mouth 2 times daily. Take 30 minutes after a meal. 180 capsule 3 06/15/2023 01/01/2024 Discontinued (Reorder) Start: 11-26-2017 End: 01-16-2025 take 1 capsule by mouth once daily Tamsulosin 0.4 mg capsule Active 0.4 MG PO Daily January 14, 2025 12:00am Complies with drug therapy tumeric 500 mg (1 source) Start: 01-16-2025 take 500 mg by mouth once dona y Vitamin B Comp And C No.3 (B Complex With Vitamin C) 1 EACH capsule (7 sources) Start: 11-26-2017 take 1 capsule by mo ut once daily Start: 11-26-2017 take 1 capsule by mouth once d aily Vitamin B Comp And C No.3 (B Complex With Vitamin C) 1 EACH capsule Active 1 NMA PO DAILY November 26, 2017 12:00am Start: 11-26-2017 take 1 capsule by mouth once d aily Vitamin B Comp And C No.3 (B Complex With Vitamin C) 1 EACH capsule Active 1 EACH PO DAILY November 25, 2017 11:00pm Completed/Discontinued Medications Medication Drug Class(es) Dates Sig (Normalized) Sig (Original) Acetaminophen (20 sources) Start: 01-21-2025 End: 01-24-2025 take 1 tablet by mouth every six hours as needed for pain and fever acetaminophen (Tylenol) tablet 650 mg Start: 01-16-2025 End: 01-26-2025 take 2 capsules by mouth every twelve hours Acetaminophen 500 mg capsule Discontinued 1000 mg PO .q12hrs January 16, 2025 12:00am January 26, 2025 8:31am End: 01-24-2025 acetaminophen (Tylenol) 325 MG tablet Take 650 mg by mouth. 01/24/2025 Discontinued (Stop taking at discharge) End: 03-01-2020 take 325 mg rectal route every four hours as needed for fever acetaminophen (TYLENOL) [address] 325 mg rectally every 4 hours as needed for Fever 0 03/01/2020 Discontinued (LIST CLEANUP) aspirin 81 mg delayed release oral tablet (20 sources) Platelet Aggregation Inhibitor, Nonsteroidal Anti-inflammatory Drug Start: 01-22-2025 End: 01-24-2025 take 81 mg by mouth once daily 81 mg, Oral, Daily, First dose on 01/22/25 at 0800, Do not crush, chew, or split. Start: 01-14-2025 End: 01-16-2025 take 1 tablet by mouth once daily Start: 11-26-2017 End: 01-16-2025 take 1 tablet by mouth once daily Aspirin 81 MG tablet,chewable Discontinued 81 mg PO DAILY@0800 November 26, 2017 12:00am January 16, 2025 11:21am take 1 tablet by jose th once daily before breakfast aspirin 81 MG tablet Take 81 mg by mouth every morning (before breakfast) 0 Active b complex vitamins capsule (20 sources) End: 01-21-2025 b complex vitamins capsule T mattie 1 capsule by mouth. 01/21/2025 Discontinued b complex vitami ns capsule Take 1 capsule by mouth. Active b complex vitami ns capsule Take 1 capsule by mouth. 0 Active take 1 capsule by mo uth once daily before breakfast b complex vitamins capsule Take 1 capsul e by mouth every morning (before breakfast) 0 Active take 1 capsule by mouth once alexa ly b complex vitamins capsule Take 1 capsule by mouth daily 0 Active bacillus coagulans [id number] unt / inulin 250 mg oral capsule (20 sources) End: 01-21-2025 Bacillus Coagulans-Inulin (Probiotic) 1-250 BILLION-MG capsule Take by mouth. 01/21/2025 Discontinued benzonatate 200 mg oral capsule (20 sources) Non-narcotic Antitussive Start: 06-05-2021 End: 06-15-2023 take 1 capsule by mouth three times daily as needed benzonatate (Tessalon) 200 MG capsule Take 200 mg by mouth 3 times daily as needed. 0 06/05/2021 06/15/2023 Discontinued (Therapy completed) bifidobacterium animalis [id number] unt / lactobacillus acidophilus [id number] unt oral capsule (20 sources) End: 01-21-2025 Probiotic Product (Probiotic Blend) capsule Every 24 hours. 01/21/2025 Discontinued bupivacaine, EPINEPHrine and dexamethasone (TAP) syringe 30 mL (1 source) Start: 03-05-2020 End: 03-05-2020 bupivacaine, EPINEPHrine and dexamethasone (TAP) syringe 30 mL ceFAZolin (ANCEF) 2 g in dextrose 5 % 100 mL IVPB (1 source) Start: 01-23-2020 End: 01-23-2020 ceFAZolin (ANCEF) 2 g in dextrose 5 % 100 mL IVPB ceFAZolin (ANCEF) 3 g in sodium chloride 0.9% 100 mL IVPB (1 source) Start: 03-05-2020 End: 03-05-2020 ceFAZolin (ANCEF) 3 g in sodium chloride 0.9% 100 mL IVPB cefTRIAXone (Rocephin) 1,000 mg in sodium chloride 0.9 % 50 mL IVPB Mini-Bag Plus (2 sources) Start: 01-21-2025 End: 01-23-2025 1,000 mg, IntraVENous, at 100 mL/hr, Administer over 30 Minutes, Every 24 hours, First dose on 01/21/25 at 2125, For 3 doses, Mini-Bag Plus bag, Suspected Indication (Select all that apply): Urinary Tract Infection cephalexin 500 mg oral capsule (5 sources) Cephalosporin Antibacterial Start: 01-15-2025 End: 01-21-2025 cephalexin (Keflex) 500 MG capsule 500 mg. 01/15/2025 01/21/2025 Discontinued Start: 03-05-2020 End: 03-15-2020 take 1 capsule by mouth four times daily cephALEXin (KEFLEX) 500 MG capsule Take 1 capsule by mouth 4 times daily for 10 days 40 capsule 0 03/05/2020 03/15/2020 Active cholecalciferol 0.05 mg oral tablet (20 sources) Vitamin D Start: 01-22-2025 End: 01-24-2025 take 5000 [IU] by mouth once daily 5,000 Units, Oral, Daily, First dose on 01/22/25 at 0900 Start: 01-16-2025 take 1 capsule by ks ut once daily, then take 3 capsules by mouth once daily Start: 11-26-2017 End: 01-16-2025 take 1 capsule by mouth once daily Cholecalciferol (Vitamin D3) (Vitamin D3) 1,000 UNIT capsule Discontinued 1000 U PO DAILY November 26, 2017 12:00am January 16, 2025 11:30am cholecalciferol (Vitamin D-3) 50 MCG (1999 UT) capsule Take 5,000 Units by mouth. Active take 1 capsule by [facility] once daily before breakfast Cholecalciferol (VITAMIN D3) 50 MCG (1999 UT) CAPS Take 5,000 Units by mouth every morning (before breakfast) 0 Active diazePAM 10 mg oral tablet (9 sources) Benzodiazepine Start: 12-08-2022 End: 01-09-2023 diazePAM (Valium) 10 MG tablet Indications: Elevated PSA Take 1 tablet (10 mg) by mouth Once for 1 dose. Take 1 tablet 30 minutes prior to procedure. 1 tablet 0 12/08/2022 01/09/2023 Discontinued (Med list cleanup) 0.4 ml enoxaparin sodium 100 mg/ml prefilled syringe (2 sources) Low Molecular Weight Heparin Start: 01-21-2025 End: 01-24-2025 inject 40 mg by subcutaneous injection every twenty-four hours 40 mg, SubCUTAneous, Every 24 hours, First dose (after last reorder) on 01/21/25 at 2315, Indication of Use: Prophylaxis-DVT/P E famotidine 20 mg oral tablet (1 source) Histamine-2 Receptor Antagonist Start: 03-05-2020 End: 03-05-2020 famotidine (PEPCID) tablet 20 mg Fish Oils (20 sources) End: 01-24-2025 omega-3 (Fish Oil) 1200 MG capsule Take 1,200 mg by mouth. 01/24/2025 Discontinued (Stop taking at discharge) omega-3 (Fish Oi l) 1200 MG capsule Take 1,200 mg by mouth. Suspended omega-3 (Fish Oi l) 1200 MG capsule Take 1,200 mg by mouth. Active omega-3 (Fish Oi l) 1200 MG capsule Take 1,200 mg by mouth. 0 Active fluorouracil 50 mg/ml topical cream (1 source) Nucleoside Metabolic Inhibitor Start: 02-08-2020 End: 03-01-2020 fluorouracil (EFUDEX) 5 % cream apply A THIN LAYER TO ARMS TWICE A DAY UNTIL RED AND IRRITATED, T... (REFER TO PRESCRIPTION NOTES). 0 02/08/2020 03/01/2020 Discontinued (Therapy completed) fluticasone propionate 0.05 mg/actuat metered dose nasal spray (20 sources) Corticosteroid End: 01-03-2025 fluticasone (Flonase) 50 MCG/ACT nasal spray 1 spray. 01/03/2025 Discontinued (Therapy completed) take 1 spray(s) nasal route once daily fluticasone (FLONASE) 50 MCG/ACT nasal spray 1 spray by Each Nostril route daily 0 Active gadopiclenol (Vueway) injection 14 mL (2 sources) Start: 01-10-2025 End: 01-10-2025 take 14 mL intravenously once as needed 14 mL, IntraVENous, IMG once PRN, contrast, Starting on Thu01/10/25 at 1328, For 1 dose gentamicin 0.001 mg/mg topical ointment (20 sources) Start: 12-22-2024 End: 01-12-2025 gentamicin (Garamycin) 0.1 % ointment Apply 1 Application topically daily. 12/22/2024 01/12/2025 Discontinued (Discontinued by another clinician) Start: 12-22-2024 End: 01-16-2025 Gentamicin 0.1 % ointment Di scontinued 1 NMA TOPICAL DAILY 30 0 December 22, 2024 12:00am January 16, 2025 11:31am Start: 12-19-2022 End: 12-19-2022 gentamicin (Garamycin) injec tion 160 mg Start: 12-19-2022 End: 12-19-2022 gentamicin (Garamycin) injec tion 160 mg Start: 12-19-2022 End: 12-19-2022 gentamicin (Garamycin) injec tion 160 mg Start: 12-19-2022 End: 12-19-2022 gentamicin (Garamycin) injec tion 160 mg Start: 12-19-2022 End: 12-19-2022 gentamicin (Garamycin) injec tion 160 mg Start: 12-19-2022 End: 12-19-2022 gentamicin (Garamycin) injec tion 160 mg Start: 12-19-2022 End: 12-19-2022 gentamicin (Garamycin) injec tion 160 mg Start: 12-19-2022 End: 12-19-2022 gentamicin (Garamycin) injec tion 160 mg Start: 12-19-2022 End: 12-19-2022 gentamicin (Garamycin) injec tion 160 mg Start: 12-19-2022 End: 12-19-2022 gentamicin (Garamycin) injec tion 160 mg iopamidol (Isovue-370) 76 % injection 75 mL (2 sources) Start: 01-21-2025 End: 01-21-2025 take 75 mL intravenously once as needed 75 mL, IntraVENous, IMG once PRN, contrast, Starting on 01/21/25 at 1943, For 1 dose 1 ml ketorolac tromethamine 30 mg/ml cartridge (1 source) Nonsteroidal Anti-inflammatory Drug, Cyclooxygenase Inhibitor Start: 01-23-2020 End: 01-23-2020 ketorolac (TORADOL) injection 30 mg levoFLOXacin 750 mg oral tablet (9 sources) Quinolone Antimicrobial Start: 12-08-2022 End: 01-09-2023 take 1 tablet by mouth once daily, then take 1 tablet by mouth every two hours levoFLOXacin (Levaquin) 750 MG tablet take 1 tablet by mouth once daily for 1 dose 2 hours prior to procedure 0 12/08/2022 01/09/2023 Discontinued (Med list cleanup) 10 ml lidocaine hydrochloride 10 mg/ml injection (10 sources) Antiarrhythmic, Amide Local Anesthetic Start: 03-05-2020 End: 03-05-2020 lidocaine PF 1 % injection Start: 03-05-2020 End: 03-05-2020 lidocaine PF 1 % injection 2 mL Start: 11-26-2017 End: 01-16-2025 Lidocaine-Aloe Vera 227 GM g el Discontinued 227 g TP NEEDED as needed for CREAM November 26, 2017 12:00am January 16, 2025 11:31am linezolid 600 mg oral tablet (18 sources) Oxazolidinone Antibacterial Start: 12-29-2024 End: 01-12-2025 take 1 tablet by mouth twice daily Linezolid 600 mg tablet Discontinued 600 mg PO TWICE A DAY 28 14 0 December 29, 2024 12:00am January 11, 2025 12:00am January 12, 2025 12:09am melatonin 5 mg oral tablet (20 sources) Start: 01-22-2025 End: 01-24-2025 take 5 mg by mouth once daily 5 mg, Oral, Nightly, First dose on 01/22/25 at 0015 Start: 11-26-2017 End: 01-16-2025 take 1 capsule by mouth at bedtime as needed 2 ml midazolam 1 mg/ml injection (2 sources) Benzodiazepine Start: 03-05-2020 End: 03-05-2020 midazolam (VERSED) injection 2 mg Start: 03-05-2020 End: 03-05-2020 midazolam (VERSED) 2 MG/2ML injection minocycline 100 mg oral capsule (1 source) Tetracycline-class Drug Start: 01-16-2025 End: 01-26-2025 take 1 mg by mouth twice daily Minocycline 100 mg capsule Discontinued mg PO TWICE A DAY January 16, 2025 12:00am January 26, 2025 8:28am Misc Natural Products (Prostate Health) capsule (20 sources) End: 01-24-2025 Misc Natural Products (Prostate Health) capsule Take by mouth. 01/24/2025 Discontinued (Stop taking at discharge) Misc Natural Pro ducts (Prostate Health) capsule Take by mouth. Suspended Misc Natural Pro ducts (Prostate Health) capsule Take by mouth. Active Misc Natural Pro ducts (Prostate Health) capsule Take by mouth. 0 Active mometasone furoate 0.05 mg/actuat metered dose nasal spray (14 sources) Corticosteroid Start: 11-26-2017 End: 01-16-2025 Mometasone (Nasonex) 1 SPRAY spray,non-aerosol Discontinued 2 NMA NASAL DAILY November 26, 2017 12:00am January 16, 2025 11:28am Start: 11-26-2017 Mometasone (Na sonex) 1 SPRAY Nasal.Sry Active 2 SPRAY NASAL DAILY November 25, 2017 11:00pm take 2 spray(s) nasa l route once daily as needed mometasone (NASONEX) 50 MCG/ACT nasal spray 2 sprays by Each Nostril route daily as needed 0 Active 1 ml morphine sulfate 4 mg/ml cartridge (2 sources) Opioid Agonist Start: 01-21-2025 End: 01-21-2025 take 1 dose by mouth every hour 2 mg, IntraVENous, Once, On 01/21/25 at 1750, For 1 dose, If oral and injectable narcotics ordered, use oral first and only use injectable if oral is ineffective or cannot take oral. Do Not give oral and injectable within 1 hour of each other unless specifically ordered. 1 ml naloxone hydrochloride 0.4 mg/ml injection (2 sources) Opioid Antagonist Start: 01-22-2025 End: 01-24-2025 0.4 mg, IntraVENous, Every 5 min PRN, opioid reversal, respiratory depression, Starting on 01/22/25 at 0945, +++ For RR naproxen 500 mg oral tablet (20 sources) Nonsteroidal Anti-inflammatory Drug Start: 01-16-2025 End: 01-24-2025 Start: 11-26-2017 End: 01-16-2025 take 1 tablet by mouth twice daily Naproxen 250 MG tablet Discontinued 250 mg PO TWICE A DAY November 26, 2017 12:00am January 16, 2025 11:25am take 1 tablet by jose th twice daily at mealtime naproxen (NAPROSYN) 500 MG tablet Take 500 mg by mouth 2 times daily (with meals) 0 Active omega-3 acid ethyl esters (half-way) 1000 mg oral capsule (20 sources) End: 01-24-2025 omega-3 acid ethyl esters (Lovaza) 1 g capsule 2 tablets Every 24 hours. 01/24/2025 Discontinued (Stop taking at discharge) take 1 capsule by mouth once alexa ly [place]-3 Fatty Acids (FISH OIL) 1200 MG CAPS Take 1,200 mg by mouth daily 0 Active 2 ml ondansetron 2 mg/ml injection (3 sources) Serotonin-3 Receptor Antagonist Start: 01-21-2025 End: 01-21-2025 4 mg, IntraVENous, Once, On 01/21/25 at 1750, For 1 dose Start: 03-05-2020 End: 03-05-2020 ondansetron (ZOFRAN) injecti on 4 mg ondansetron ODT (Zofran-ODT) disintegrating tablet 4 mg (2 sources) Start: 01-21-2025 End: 01-24-2025 take 1 tablet by mouth every eight hours as needed for nausea and vomiting ondansetron ODT (Zofran-ODT) disintegrating tablet 4 mg pantoprazole 40 mg delayed release oral tablet (12 sources) Proton Pump Inhibitor Start: 01-14-2025 End: 01-24-2025 take 40 mg by mouth once daily before breakfast 40 mg, Oral, Daily before breakfast, First dose on 01/22/25 at 0600, Substituted for esomeprazole (Nexium). Do not crush, chew, or split. take 40 mg by mouth once daily before breakfast pantoprazole sodium (PROTONIX) 40 MG PAC K packet Take 40 mg by mouth every morning (before breakfast) 0 Active polyethylene glycol 3350 [id number] mg powder for oral solution (2 sources) Osmotic Laxative Start: 01-21-2025 End: 01-24-2025 take 17 g by mouth every twenty-four hours as needed for constipation 17 g, Oral, Daily PRN, constipation, Starting on 01/21/25 at 2256, 1st line for treatment of constipation - give scheduled if no bowel movement in past 24 hours. sertraline 25 mg oral tablet (13 sources) Serotonin Reuptake Inhibitor Start: 11-26-2017 End: 12-29-2024 take 1 tablet by mouth once daily Sertraline (Zoloft) 25 MG tablet Discontinued 25 mg PO DAILY November 26, 2017 12:00am December 29, 2024 2:03pm take 1 tablet by mouth once dona y sertraline (ZOLOFT) 50 MG tablet Take 50 mg by mouth daily 0 Active 50 ml sodium chloride 9 mg/ml injection (2 sources) Start: 01-21-2025 End: 01-21-2025 1,000 mL, IntraVENous, at 1,000 mL/hr, Administer over 1 Hours, Once, On 01/21/25 at 1750, For 1 dose sulfamethoxazole 800 mg / trimethoprim 160 mg oral tablet (4 sources) Dihydrofolate Reductase Inhibitor Antibacterial, Sulfonamide Antimicrobial Start: 02-05-2025 End: 02-10-2025 take 1 tablet by mouth twice daily sulfamethoxazole- trimethoprim (Bactrim DS) 800-160 MG tablet Take 1 tablet by mouth 2 times daily for 5 days. 10 tablet 02/05/2025 02/10/2025 Discontinued (Therapy completed) therapeutic multivitamin-minerals (Theragran-M) tablet (2 sources) Start: 01-22-2025 End: 01-24-2025 take 1 tablet by mouth once daily 1 tablet, Oral, Daily, First dose on 01/22/25 at 0800 triamcinolone acetonide 1 mg/ml topical cream (14 sources) Corticosteroid Start: 04-20-2023 End: 01-02-2025 triamcinolone (Kenalog) 0.1 % cream Apply 1 Application topically 2 times daily. 04/20/2023 01/02/2025 Discontinued (Therapy completed) trospium chloride 20 mg oral tablet (6 sources) Cholinergic Muscarinic Antagonist Start: 01-22-2025 End: 01-24-2025 take 20 mg by mouth twice daily 1 hour(s) before mealtime 20 mg, Oral, 2 times daily before meals, First dose on Thu01/22/25 at 0700, Substituted for oxybutynin (DITROPAN); fesoterodine (TOVIAZ); darifenacin (ENABLEX); solifenacin (VESICARE); tolterodine IR (DETROL); tolterodine ER (DETROL LA). Give one hour before meals. Start: 01-21-2025 End: 01-21-2025 take 20 mg by mouth once 1 hour(s) before mealtime 20 mg, Oral, Once, On Thu01/21/25 at 1815, For 1 dose, Substituted for oxybutynin (DITROPAN); fesoterodine (TOVIAZ); darifenacin (ENABLEX); solifenacin (VESICARE); tolterodine IR (DETROL); tolterodine ER (DETROL LA). Give one hour before meals. Start: 01-17-2025 End: 01-17-2025 take 20 mg by mouth once daily 1 hour(s) before mealtime 20 mg, Oral, Daily, First dose on Thu01/17/25 at 1700, Substituted for oxybutynin (DITROPAN); fesoterodine (TOVIAZ); darifenacin (ENABLEX); solifenacin (VESICARE); tolterodine IR (DETROL); tolterodine ER (DETROL LA). Give one hour before meals. Problems Active Problems Problem Classification Problem Date Documented Da te Episodic/Chronic Abdominal pain (16 sources) Lower abdominal pain; Translations: [Lower abdominal pain, unspecified] Onset: 01-21-2025 01-21-2025 Episodic Cardiac dysrhythmias (5 sources) Atrial fibrillation; Translations: [Unspecified atrial fibrillation] Onset: 01-26-2025 01-26-2025 Chronic Cardiac dysrhythmias (12 sources) Palpitations; Translations: [Palpitations] Onset: 06-15-2024 06-15-2024 Episodic Chronic ulcer of skin (20 sources) Ulcer of lower extremity; Translations: [Non-pressure chronic ulcer of unspecified part of right lower leg with unspecified severity] Onset: 02-08-2025 10-05-2024 Chronic Complication of device; implant or graft (4 sources) Urinary tract infectious disease; Translations: [Infection and inflammatory reaction due to indwelling urethral catheter, initial encounter] Onset: 01-21-2025 01-21-2025 Episodic Disorders of lipid metabolism (5 sources) Pure hypercholesterolemia ; Translations: [Pure hypercholesterolemia , unspecified] Onset: 11-03-2024 04-17-2023 Chronic Essential hypertension (4 sources) Essential hypertension; Translations: [Essential (primary) hypertension] Onset: 02-09-2025 04-17-2023 Chronic Genitourinary symptoms and ill-defined conditions (20 sources) Incomplete emptying of bladder; Translations: [Retention of urine, unspecified] Onset: 01-02-2024 06-15-2023 Episodic Hyperplasia of prostate (20 sources) Nocturia due to benign prostatic hypertrophy; Translations: [Benign prostatic hyperplasia with lower urinary tract symptoms] Onset: 01-02-2025 06-15-2023 Chronic Neoplasms of unspecified nature or uncertain behavior (3 sources) Neoplasm of uncertain behavior of left kidney; 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] 05-01-2023 Episodic Open wounds of extremities (1 source) Unspecified open wound, right lower leg, initial encounter; Translations: [Unspecified open wound, right lower leg, initial encounter] Onset: 02-07-2025 Episodic Osteoarthritis (2 sources) Osteoarthritis of finger joint of right hand; Translations: [Heberden's nodes (with arthropathy)] 01-09-2023 Chronic Other bone disease and musculoskeletal deformities (1 source) History of amputation of finger; Translations: [S/P surgical amputation of finger, right] Episodic Other connective tissue disease (6 sources) Digital mucous cyst of left hand; Translations: [Ganglion, left hand] 01-09-2023 Episodic Other connective tissue disease (1 source) Digital mucous cyst of right hand; Translations: [Ganglion, right hand] 01-09-2023 Episodic Other diseases of bladder and urethra (20 sources) Spasm of bladder; Translations: [Other specified disorders of bladder] Onset: 01-20-2025 01-17-2025 Chronic Other diseases of bladder and urethra (2 sources) Other specified disorders of bladder; Translations: [Other specified disorders of bladder] Onset: 01-21-2025 Chronic Other injuries and conditions due to external causes (16 sources) Local infection of wound; Translations: [Other injury of unspecified body region, initial encounter] 10-05-2024 Episodic Other injuries and conditions due to external causes (16 sources) Open wound; Translations: [Other injury of unspecified body region, initial encounter] 10-05-2024 Episodic Other injuries and conditions due to external causes (2 sources) Other injury of unspecified body region, initial encounter; Translations: [Other injury of unspecified body region, initial encounter] Onset: 02-13-2025 Episodic Other lower respiratory disease (3 sources) Cough; Translations: [Acute cough] 05-17-2024 Episodic Other non-traumatic joint disorders (2 sources) Pain in right shoulder; Translations: [Pain in right shoulder] Onset: 12-20-2021 Episodic Other nutritional; endocrine; and metabolic disorders (2 sources) Body mass index 40+ - severely obese; Translations: [Morbid (severe) obesity due to excess calories] 01-26-2025 Chronic Other nutritional; endocrine; and metabolic disorders (1 source) Morbid (severe) obesity due to excess calories; Translations: [Morbid (severe) obesity due to excess calories] Onset: 01-26-2025 Chronic Other nutritional; endocrine; and metabolic disorders (1 source) Body mass index (BMI) 40.0-44.9, adult; Translations: [Body mass index [BMI] 40.0-44.9, adult] Onset: 01-26-2025 Chronic Other screening for suspected conditions (not mental disorders or infectious disease) (20 sources) Elevated prostate specific antigen [PSA]; Translations: [Patient encounter status] Onset: 10-24-2021 Episodic Residual codes; unclassified (2 sources) Sleep apnea; Translations: [Sleep apnea, unspecified] 01-26-2025 Chronic Residual codes; unclassified (2 sources) Sleep apnea, unspecified; Translations: [Sleep apnea, unspecified] Onset: 01-26-2025 Chronic Residual codes; unclassified (4 sources) Bilateral lower limb edema; Translations: [Localized edema] 01-05-2025 Episodic Residual codes; unclassified (2 sources) Urinary catheter in situ; Translations: [Presence of other specified devices] 01-17-2025 Episodic Residual codes; unclassified (2 sources) Presence of other specified devices; Translations: [Presence of other specified devices] Onset: 01-17-2025 Episodic Residual codes; unclassified (2 sources) Localized edema; Translations: [Localized edema] Onset: 02-13-2025 Episodic Skin and subcutaneous tissue infections (3 sources) Cellulitis of finger; Translations: [Local infection of the skin and subcutaneous tissue, unspecified] Onset: 02-13-2025 Episodic Spondylosis; intervertebral disc disorders; other back problems (4 sources) Low back pain; Translations: [Low back pain, unspecified] 05-01-2023 Episodic Unclassified (1 source) I will provide some antibiotics to your pharmacy. Unclassified (1 source) Once you are discharged, there will be a plug in the irrigation port of the catheter. Push fluids to keep the urine clear. I would notify your urologist in the [place] area immediately of what has occurred. Unclassified (1 source) Please arrange a follow-up appointment with your primary care provider within 7-10 days. Unclassified (1 source) A [facility] screening has identified you as FRAIL or AT RISK FOR FRAILTY. This puts you at a higher risk for infection, illness, falls, and other injuries. Here are four ways to help you reduce your risk of frailty: 1. IDENTIFY EARLY SIGNS OF FRAILTY Discuss contributing factors and concerns with your doctor 2. BE ACTIVE Walking and light strengthening exercises will help reduce weakness 3. EAT WELL Aim for three healthy meals a day that are high in protein 4. THINK POSITIVE Keep your mind active by being sociable and continuing to learn References: Stay Strong: Four Ways to Beat the Frailty Risk [email or web address]-jua-gxyehdpq on/wbri-[email or web address]-ewmm- vuma-ru-dxdw-the-fra ilty-risk 01-15-2025 Unclassified (2 sources) Other; Translations: [Other] Onset: 02-10-2025 Unclassified (1 source) Acute cough; Translations: [Acute cough] Onset: 05-17-2024 Unclassified (2 sources) Other ventricular tachycardia; Translations: [Other ventricular tachycardia] Onset: 01-26-2025 Urinary tract infections (2 sources) Urinary tract infection, site not specified; Translations: [Urinary tract infection, site not specified] Onset: 01-21-2025 Episodic Past or Other Problems Problem Classification Problem Date Documented Da te Episodic/Chronic Malaise and fatigue (1 source) Lack of energy; Translations: [Other fatigue] Episodic Other lower respiratory disease (4 sources) Dyspnea; Translations: [Other forms of dyspnea] Onset: 05-17-2024 05-17-2024 Episodic Other lower respiratory disease (1 source) Other forms of dyspnea; Translations: [Other forms of dyspnea] Onset: 05-17-2024 Episodic Unclassified (1 source) Acute cough; Translations: [Acute cough] Onset: 05-17-2024 Results Test Name Value Interpretation Reference Range Facility Echo Complete W/ Contraston 02-22-2025 Echo Complete W/ Contrast [facility] [address] [place] [address] Echo Complete W/ Contrast 02/22/25 0803 MR#: [id number] Acct: [id number] Name: STEPHANE TORIBIO Rep #: [id number] : 1960 64 From: Kasia Choi MD Attending Dr: Dr. Kasia Choi MD Status: REG CLI Ordering Dr: Kasia Choi MD Date: 02/22/25 Location[place] [facility] [place] Sex: M C Admitted: Reason For Study Reason For Study: Palpitations Procedure This was a 2D Doppler, Color Flow transthoracic echocardiogram. The study was technically difficult. Contrast injection was performed. Exam performed in department. Left Ventricle Normal LV size. Mild concentric left ventricular hypertrophy. The left ventricular ejection fraction is 65 %. Stage 1 diastolic dysfunction. Right Ventricle Normal right ventricle. Atria The left and right atria are normal. Mitral Valve Trivial mitral valve insufficiency. Tricuspid Valve Normal tricuspid valve. Aortic Valve Trisinus/trileaflet aortic valve. Trivial aortic valve insufficiency. Pulmonic Valve The pulmonic valve is not well visualized. Great Vessels Normal sized aortic root. Pericardium/Pleural No pericardial effusion. Medication 22 gauge I.V. with prn adaptor inserted into right arm. Diluted definity 2ml given slow IV push to enhance endocardial definition. MMode/2D Measurements Calculations LVIDd: 5.8 cm IVSd: 1.1 cm Ao root diam: 3.4 cm LVIDs: 3.5 cm LVPWd: 1.2 cm RVDd: 3.9 cm FS: 38.9 % LAV(MOD-bp): 53.9 ml LVAd ap4: 40.1 cm2 SV(MOD-sp4): 86.0 ml LAV(MOD-bp) Indexed: 21.7 ml/m2 LVLd ap4: 9.5 cm SI(MOD-sp4): 34.6 ml/m2 LAV(MOD-sp2): 56.5 ml EDV(MOD-sp4): 139.5 ml LAV(MOD-sp4): 50.8 ml EDV(sp4-el): 143.4 ml LVAs ap4: 22.9 cm2 LVLs ap4: 8.5 cm ESV(MOD-sp4): 53.5 ml ESV(sp4-el): 52.4 ml EF(MOD-sp4): 61.6 % EF(sp4-el): 63.5 % SV(sp4-el): 91.0 ml LA A4 area: 18.9 cm2 LA dimension(2D): 4.0 cm RA A4 area: 14.0 cm2 TAPSE: 1.5 cm Time Measurements MV dec time: 0.23 sec Doppler Measurements Calculations MV E max amado: 90.2 cm/sec Lat Peak E' Amado: 15.1 cm/sec Med Peak E' Amado: 11.4 cm/sec MV A max amado: 76.6 cm/sec E/E' lat: 6.0 E/E' med: 7.9 MV E/A: 1.2 MV V2 max: 108.7 cm/sec MV P1/2t max amado: 110.7 cm/sec Ao V2 max: 160.1 cm/sec MV max P.7 mmHg MV P1/2t: 81.3 msec Ao max P.3 mmHg MV V2 mean: 54.8 cm/sec MV dec slope: 398.5 cm/sec2 Ao V2 mean: 108.0 cm/sec MV mean P.4 mmHg MVA(P1/2t): 2.7 cm2 Ao mean P.5 mmHg MV V2 VTI: 33.0 cm Ao V2 VTI: 34.9 cm PA V2 max: 109.5 cm/sec ECHO/Echo Complete W/ Contrast Interpretation Summary Mild concentric left ventricular hypertrophy. The left ventricular ejection fraction is 65 %. Stage 1 diastolic dysfunction. The study was technically difficult. Ordering Physician: Kasia Choi Referring Physician: Kasia Choi Performed By: Froylan Green RCS 02/22/25938 Date Kasia Choi MD CC: Dr. Kasia Choi MD; Dr. Abimael Elizabeth DO Date Dictated: 02/22/25802 Date Transcribed: 02/22/25938 Emergency Room Clinician: Signed Con[facility] Office Visiton 02-10-2025 Follow-up visit [id number] Antoine Toribio 1960 M Date Provider Department Center 02/10/2025 REJI HOLLAND [facility] None Family History Problem Relation Age of Onset Arthritis Mother Arthritis Father Hearing loss Father Family Status - Relation Status Age at Mother Alive Father Alive Level of Service:35079 [place] OFFICE/OUTPATIENT ESTABLISHED LOW [facility] 20 MIN Reason for Visit and Comments: Other [0] - Discuss MRI results, catheter pains (sharp) Would like to discuss catheter changing schedule, fears of bleeding if changed Needs script altered for spasms to x2 a day (vesicare) [facility] Progress Noteon 02-10-2025 Progress Note Reji fuentes MD 02/10/2025 at 8:01 PM OFFICE FOLLOW-UP VISIT PATIENT NAME: Stephane Toribio DATE OF : 1960 TODAY'S DATE: 02/10/2025 CHIEF COMPLAINT: Chief Complaint Patient presents with Other Discuss MRI results, catheter pains (sharp) Would like to discuss catheter changing schedule, fears of bleeding if changed Needs script altered for spasms to x2 a day (vesicare) Subjective: Mr. Toribio is a 64 y.o. male who presents to the office for follow up of urinary retention. See below for past history. His bladder spasms under much better control now with the solifenacin. Dr. Moseley assessed the patient while inpatient and determined that the patient would be better suited with holmium laser nucleation of the prostate. Referral has been made to Dr. Vishnu Monique at [facility] Review of Systems Past Medical History: Medical History[1] Past Surgical History: Surgical History[2] Allergies: Dust mite extract and Molds & smuts Social History: Issues identified in the H&P were noted Family History: Family History[3] Medications Prior to Admission medications Medication Sig Start Date End Date Taking? Authorizing Provider aspirin 81 MG EC tablet Take 81 mg by mouth in the morning. Historical Provider, cholecalciferol (Vitamin D-3) 50 MCG (2000 UT) capsule Take 5,000 Units by mouth. Historical Provider, esomeprazole (NexIUM) [address] capsule Take 40 mg by mouth. Historical Provider, finasteride (Proscar) 5 MG tablet Take 1 tablet (5 mg) by mouth daily. 01/02/25 04/02/25 Reji Maradiaga MD lisinopril 20 MG tablet Take 20 mg by mouth. Historical Provider, melatonin 5 MG tablet Take 5 mg by mouth. Historical Provider, montelukast (Singulair) 10 MG tablet Take 10 mg by mouth Nightly. Historical Provider, Multiple Vitamin (Multi-Vitamin) tablet Take 1 tablet by mouth in the morning. Historical Provider, naproxen (Naprosyn) 500 MG tablet Take 500 mg by mouth every 12 hours as needed. With food or milk Historical Provider, phenazopyridine (Pyridium) 200 MG tablet Take 1 tablet (200 mg) by mouth 3 times daily. 01/24/25 02/23/25 Emigdio Joya MD solifenacin (VESIcare) 10 MG tablet Take 1 tablet (10 mg) by mouth 2 times daily. Swallow tablet whole; do not crush, chew, or split. 02/10/25 03/12/25 Reji Maradiaga MD tamsulosin (Flomax) 0.4 MG 24 hr capsule 2 capsules Every 24 hours. 02/13/24 Historical Provider, solifenacin (VESIcare) 10 MG tablet Take 1 tablet (10 mg) by mouth daily. Swallow tablet whole; do not crush, chew, or split. 01/20/25 02/10/25 Reji Maradiaga MD sulfamethoxazole-trimethop rim (Bactrim DS) 800-160 MG tablet Take 1 tablet by mouth 2 times daily for 5 days. Patient not taking: Reported on 02/10/2025 02/05/25 02/10/25 Gio Monge MD Vitals: BP 113/64 (BP Location: Left arm, Patient Position: Sitting, BP Cuff Size: Adult long) Pulse 64 Physical Exam Physical Exam Constitutional: Appearance: Normal appearance. HENT: Head: Normocephalic and atraumatic. Eyes: Extraocular Movements: Extraocular movements intact. Pulmonary: Effort: Pulmonary effort is normal. Musculoskeletal: General: Normal range of motion. Cervical back: Normal range of motion. Neurological: General: No focal deficit present. Mental Status: He is alert and oriented to person, place, and time. Psychiatric: Mood and Affect: Mood normal. Behavior: Behavior normal. Thought Content: Thought content normal. Judgment: Judgment normal. LABS: Lab Results Component Value Date PSA 4.588 (H) 05/02/2022 PSA 4.256 (A) 10/24/2021 PSA 3.523 09/20/2019 Lab Results Component Value Date TESTOSTERONE 391 05/13/2022 Lab Results Component Value Date WBC 11.4 (H) 01/21/2025 HGB 13.0 01/21/2025 HCT 38.7 (L) 01/21/2025 MCV 87.4 01/21/2025 PLT 255 01/21/2025 Lab Results Component Value Date GLUCOSE 121 (H) 01/21/2025 CALCIUM 9.5 01/21/2025 NA 139 01/21/2025 K 4.1 01/21/2025 CO2 22 (L) 01/21/2025 CL 107 01/21/2025 BUN 16 01/21/2025 CREATININE 1.32 (H) 01/21/2025 Radiology: See below Impression/Plan Stephane was seen today for other. Diagnoses and all orders for this visit: Urinary retention (Primary) Bladder spasms Elevated PSA Benign prostatic hyperplasia with nocturia No follow-ups on file. Since he is not in an institution (hospital or [facility]) I will hold off on changing the catheter at this time. We discussed the reasoning behind not keeping the on continuous oral antibiotic therapy. Topical meatal Neosporin is excellent. Continue finasteride and tamsulosin Bladder spasms controlled with solifenacin 10 mg BID. They have appointment to see Dr. Monique at [facility] to discuss HoLEP. I think this is an excellent surgical choice for him, and I have explained to the patient that he is in good hands with Dr. Monique. Reji Maradiaga MD 02/10/25 8:01 PM Live (more content not included)... [facility] 36on 02-05-2025 36 URO 02/05/25 scallop binder- call to call center: I suggested Neosporin or Triple antibiotic ointment around meatus. Patient feels he may have a UTI I E Scribed Bactrim DS one PO BID # 10 [place] [facility] 36 S: Patient called e clinical access center with complaint of possible UTI B: Ongoing catheter was placed when in the hospital for gross hematuria and urinary retention. Also markedly enlarged prostate and was having LUTS. Catheter has been present since 01/15/25 A: Patient c/o thinks he may have UTI and has a catheter and has a discharge at insertion site light yellow mucous in color. Has burning sensation 5/10 it kept him up last night Cathter is working urine has sediment coming out and cloudy. Denies fever abdominal pain, feels like his bladder is being emp[tied. Has had 30 ounces of fluid this morning and yesterday he had 100 ounces. R: Paged Dr. Monge in secure chat he is in a procedure. Called made patient aware states they are driving home from out of town should be back in 2 hours. Will await call back. Dr Monge stated Does not need to go to ED. Should go to a store Like [email or web address] or a large grocery store and Purchase Triple Antibiotic Ointment or Neosporin Ointment ( not cream), then place some around penile meatus-around catheter at the opening of the penis. Patient made aware but is concerned about the sediment in the mendoza bag, Asked Dr Monge he stated I e-scribed Bactrim DS one po BID for 5 days. Patient made aware. Home Care advice given. Patient instructed to call back with worsening symptoms, concerns or questions. Patient verbalized understanding. Message to the office for review by the provider and needs recommendation from Provider for treatment going forward. Reason for Disposition [1] Cloudy urine lasts > 24 hours AND [2] not cleared by increased fluid intake Protocols used: Urinary Catheter (e.g., Mendoza) Symptoms and [facility] Anion gap in Serum or Plasma Ordered By: Kasia Choi on 01-26-2025 Anion gap [Moles/Vol] 14 mmol/L - [facility] BUN/creatinine ratioOrdered By: Kasia Choi on 01-26-2025 Urea nitrogen/Creatinine [Mass ratio] 12.5 mg/mg - [facility] Bilirubin, totalOrdered By: Kasia Chio on 01-26-2025 Bilirubin [Mass/Vol] 0.51 mg/dL 0.00-1.30 [facility] Carbon dioxide, total [Moles /volume] in Central venous bloodOrdered By: Kasia Choi on 01-26-2025 CO2 [Moles/Vol] 21.8 mmol/L 21.0-32.0 [facility] Cardiology Visit Reporton Cardiology Visit Report [facility] [address] [place] [address] OFFICE VISIT Date of Service: 01/26/25 MR#: [id number] Acct: [id number] Name: STEPHANE TORIBIO Rep #: [id number] : 1960 Provider: Dr. Kasia Choi MD Age/Sex: 64/M [place] [facility] [place] Status: Signed HPI HPI History of Present Illness Details: This gentleman has past medical history significant for sleep apnea, hypertension and erectile dysfunction. According to him, he has been having intermittent palpitations for the last 2 years. Lately they have become more frequent. He has had event monitoring done in June of this year. Less than 1% burden of PVCs was noted however 1 6 beat run of nonsustained VT was recorded. Patient has had coronary calcium scoring done recently. It was reported as 0. According to the patient, he feels palpitations at least once a week. According to him, there is an hour to 2-hour. Where and he feels his heart flutter. Denies any racing of the heart. Denies any associated dizziness or lightheadedness. No chest pains. No shortness of breath. Denies any chest pains either at rest or with exertion. No dyspnea either at rest or with exertion. Denies orthopnea or PND. He does have sleep apnea and wears a CPAP at night. Chronic lower extremity edema for which she wears compression stockings. No history of syncope or presyncope. Patient admits to excessive caffeine intake. According to him, he drinks about 8 to 10 cups of coffee a day. Intake Vital Signs 12/03/17 06:15 01/26/25 08:26 Height 5 ft 10 in 5 ft 10 in Weight: 301 lb BMI 43.2 BP 125/76 H Blood Pressure Location Lt brachial Position Sitting Respiration 18 Pulse 94 Pulse Source Monitor Intake Visit Reasons: Atrial fibrillation Log Loader Required: No Accompanied by: Is patient in pain?: No Allergies Environmental Allergies: Uncoded (dust) Allergy (Unknown, Verified 01/26/25 08:26) unknown mold Allergy (Unknown, Verified 01/26/25 08:26) unknown ragweed pollen Allergy (Unknown, Verified 01/26/25 08:26) unknown Medications ???Medication ???Instructions ???Recorded ???Confirmed ???Type Lactobacillus 1 ea PO DAILY 11/26/17 01/16/25 Hi story 41-B.animalis,bifid-FOS 111 mg (25 billion cell) capsule (Ultimate Probiotic-10) lisinopril 20 mg tablet 20 mg PO DAILY 11/26/17 01/16/25 H istory omega-3 1,050 fi-thc-alt-dpa-fish 1 ea PO DAILY 11/26/17 01/16/25 H istory oil 1,200 mg capsule ([place]-3 2100) vitamin B comp and C no.3 15 mg-10 1 ea PO DAILY 11/26/17 01/16/25 History mg-50 mg-5 mg-300 mg capsule (B Complex Plus Vitamin C) antiarthritic combination no.2 900 mg PO 10/06/25 10/06/25 History mg tablet (glucosamine-chondroitin) aspirin 81 mg tablet 81 mg PO QDAY 01/16/25 01/16/25 Hi story azelastine 137 mcg-fluticasone 50 1 - 2 spray intranasal BID 01/16/25 History mcg/spray nasal spray cholecalciferol (vitamin D3) 50 50 mcg PO .COMPLEX 01/16/25 History mcg (2,000 unit) capsule loratadine 10 mg tablet (Allergy 10 mg PO DAILY PRN 01/16/25 History Relief (loratadine)) melatonin 5 mg capsule 5 mg PO QHS PRN 01/16/25 01/16/25 History montelukast 10 mg tablet 10 mg PO DAILY 01/16/25 01/16/25 H istory multivitamin 1 tab PO QDAY 01/16/25 01/16/25 Hi story naproxen 500 mg tablet 500 mg PO Q12H PRN 01/16/25 History pantoprazole 40 mg tablet,delayed 40 mg PO DAILY 01/16/25 01/16/25 History release sildenafil 100 mg tablet 50 - 100 mg PO DAILY PRN 01/16/25 01/16/25 History tamsulosin 0.4 mg capsule 0.8 mg PO DAILY 01/16/25 01/16/25 History tumeric PO DAILY 01/16/25 History finasteride 5 mg tablet 5 mg PO QDAY 01/26/25 01/26/25 His tory hydrocodone-acetaminophen 5-325mg 1 tab PO Q6H PRN 01/26/25 5 History 5mg-325mg phenazopyridine 200 mg tablet 200 mg PO TID 01/26/25 01/26/25 Hi story solifenacin 10 mg tablet 10 mg PO QDAY 01/26/25 01/26/25 Hi story Have you fallen in the past year?: No PFSH Medical History (Updated 01/26/25 @ 09:[address] 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 Normal [facility] Chloride assayOrdered By: Esteban Choi on 01-26-2025 Chloride [Moles/Vol] 104 mmol/L 98-108 [facility] Comprehensive Metabolic Prof ilon 01-26-2025 Albumin [Mass/Vol] 4.0 g/dL Normal 3.4-4.8 [facility] Comment on above: Performed By: #### L 501.9520, L501.5200, L500.4050 ####[facility] [address] [place], [address] Albumin/Globulin [Mass ratio] 1.3 {ratio} Normal 0.9-2.4 [facility] Comment on above: Performed By: #### L 501.9520, L501.5200, L500.4050 ####[facility] [address] [place], [address] ALK PHOS 70 U/L Normal 40-129 [facility] Comment on above: Performed By: #### L 501.9520, L501.5200, L500.4050 ####[facility] [address] [place], [address] ALT [Catalytic activity/Vol] 32 U/L Normal <=46 [facility] Comment on above: Performed By: #### L 501.9520, L501.5200, L500.4050 ####[facility] [address] [place], [address] AST [Catalytic activity/Vol] 22 U/L Normal <=37 [facility] Comment on above: Performed By: #### L 501.9520, L501.5200, L500.4050 ####[facility] [address] [place], [address] Bilirubin [Mass/Vol] 0.51 mg/dL Normal 0.00-1.30 [facility] Comment on above: Performed By: #### L 501.9520, L501.5200, L500.4050 ####[facility] [address] [place], [address] BUN/CRE 12.5 RATIO Normal 10-20 [facility] Comment on above: Performed By: #### L 501.9520, L501.5200, L500.4050 ####[facility] [address] [place], [address] Calcium [Mass/Vol] 9.7 mg/dL Normal 7.6-11.0 [facility] Comment on above: Performed By: #### L 501.9520, L501.5200, L500.4050 ####[facility] [address] [place], [address] Chloride [Moles/Vol] 104 mmol/L Normal 98-108 [facility] Comment on above: Performed By: #### L 501.9520, L501.5200, L500.4050 ####[facility] [address] [place], [address] CO2 [Moles/Vol] 21.8 mmol/L Normal 21.0-32.0 [facility] Comment on above: Performed By: #### L 501.9520, L501.5200, L500.4050 ####[facility] [address] [place], [address] Creatinine [Mass/Vol] 1.32 mg/dL High 0.70-1.20 [facility] Comment on above: Performed By: #### L 501.9520, L501.5200, L500.4050 ####[facility] [address] [place], [address] GAP 14 Normal 5-15 [facility] Comment on above: Performed By: #### L 501.9520, L501.5200, L500.4050 ####[facility] [address] [place], [address] GFR/1.73 sq M.predicted among non-blacks MDRD (S/P/Bld) [Vol rate/Area] 60 mL/min/{1.73_m2} Normal >60 [facility] Comment on above: Result Comment: mL/m in/1.73m2 CKD-EPI Creatinine Equation (2020) Performed By: #### L 501.9520, L501.5200, L500.4050 ####[facility] [address] [place], [address] Globulin (S) [Mass/Vol] 3.1 g/dL Normal 2.2-4.2 [facility] Comment on above: Performed By: #### L 501.9520, L501.5200, L500.4050 ####[facility] [address] [place], [address] Glucose [Mass/Vol] 97 mg/dL Normal 70-99 [facility] Comment on above: Performed By: #### L 501.9520, L501.5200, L500.4050 ####[facility] [address] [place], [address] Potassium [Moles/Vol] 4.3 mmol/L Normal 3.3-5.1 [facility] Comment on above: Performed By: #### L 501.9520, L501.5200, L500.4050 ####[facility] [address] [place], [address] Sodium [Moles/Vol] 139 mmol/L Normal 133-145 [facility] Comment on above: Performed By: #### L 501.9520, L501.5200, L500.4050 ####[facility] [address] [place], [address] T PROT 7.1 g/dL Normal 5.9-8.4 [facility] Comment on above: Performed By: #### L 501.9520, L501.5200, L500.4050 ####[facility] [address] [place], [address] Urea nitrogen [Mass/Vol] 17 mg/dL Normal 4-19 [facility] Comment on above: Performed By: #### L 501.9520, L501.5200, L500.4050 ####[facility] [address] [place], [address] Glomerular filtration rate ( GFR) estimation/1.73 sq m using serum, plasma, or whole bOrdered By: Kasia Choi on 01-26-2025 GFR/1.73 sq M.predicted among non-blacks MDRD (S/P/Bld) [Vol rate/Area] 60 mL/min/{1.73_m2} >60 [facility] Comment on above: mL/min/1.73m2 CKD-EP I Creatinine Equation (2020) Laboratory - Chemistry and C hemistry - challengeOrdered By: Kasia Choi on 01-26-2025 AST [Catalytic activity/Vol] 22 U/L <38 [facility] Magnesiumon 01-26-2025 Magnesium [Mass/Vol] 2.4 mg/dL High 1.5-2.2 [facility] Comment on above: Performed By: #### L 501.9520, L501.5200, L500.4050 ####[facility] [address] [place], [address] Magnesium measurement (mass/ volume)Ordered By: Kasia Choi on 01-26-2025 Magnesium (Unsp spec) [Mass/Vol] 2.4 mg/dL High 1.5-2.2 [facility] Potassium measurement (mass/ volume)Ordered By: Kasia Choi on 01-26-2025 Potassium (Unsp spec) [Mass/Vol] 4.3 mmol/L 3.3-5.1 [facility] Serum creatinine measurement (mass/volume)Ordered By: Kasia Choi on 01-26-2025 Creatinine [Mass/Vol] 1.32 mg/dL High 0.70-1.20 [facility] Serum globulin measurementOr dered By: Kasia Choi on 01-26-2025 Globulin (S) [Mass/Vol] 3.1 g/dL 2.2-4.2 [facility] Serum glucose measurement (m ass/volume)Ordered By: Kasia Choi on 01-26-2025 Glucose [Mass/Vol] 97 mg/dL 70-99 [facility] Serum or plasma alanine castillo otransferase (ALT) measurementOrdered By: Kasia Choi on 01-26-2025 ALT [Catalytic activity/Vol] 32 U/L <47 [facility] Serum or plasma albumin abhay urement (mass/volume)Ordered By: Kasia Choi on 01-26-2025 Albumin [Mass/Vol] 4.0 g/dL 3.4-4.8 [facility] Serum or plasma albumin/glob ulin mass ratioOrdered By: Kasia Choi on 01-26-2025 Albumin/Globulin [Mass ratio] 1.3 {ratio} 0.9-2.4 [facility] Serum or plasma alkaline latisha sphatase measurementOrdered By: Kasia Choi on 01-26-2025 ALP [Catalytic activity/Vol] 70 U/L 40-129 [facility] Serum or plasma calcium abhay urement (mass/volume)Ordered By: Kasia Choi on 01-26-2025 Calcium [Mass/Vol] 9.7 mg/dL 7.6-11.0 [facility] Serum or plasma urea nitroge n measurement (mass/volume)Ordered By: Kasia Choi on 01-26-2025 Urea nitrogen [Mass/Vol] 17 mg/dL 4-19 [facility] Sodium levelOrdered By: Sigifredo Choi on 01-26-2025 Sodium [Moles/Vol] 139 mmol/L 133-145 [facility] TSH DL <= 0.005 mIU/L QnOrde red By: Kasia Jimbo on 01-26-2025 TSH Qn 1.370 uIU/mL 0.300-4.20 0 [facility] Thyroid Stim Hormone (TSH)on 01-26-2025 TSH 1.370 uIU/mL Normal 0.300-4.20 0 [facility] Comment on above: Performed By: #### L 501.9520, L501.5200, L500.4050 ####[facility] [address] [place], [place], [address] Total proteinOrdered By: Alfredito stanford Jimbo on 01-26-2025 Protein [Mass/Vol] 7.1 g/dL 5.9-8.4 [facility] Culture, Anaerobic Any Sourc dee 01-24-2025 CUAN List Antibiotics Las t 48 Hours? none List Antibiotics to be Started? none No growth in 5 days. Normal [facility] Comment on above: Performed By: #### M 100.4001, M100.2000, M100.3000 #### [facility] Laboratory [address] [place], [place], [id number] Nursing Noteon 01-24-2025 Nursing Note Patient discharged a t this time. Patient had IV removed prior to discharge. Patient Left with all documented belongings. AVS reviewed with nurse, all questions answered. Patient taken to main entrance for discharge via wheelchair by NST. [facility] Progress Noteon 01-24-2025 Progress Note Physician Response Please review the following and provide your response below. Please clarify which of the following accurately describes the patient's CKD Stage: CKD Stage 2 (GFR 60-89) This documentation will become part of the patient's medical record. [facility] 36on 01-23-2025 36 Pt is currently admi tted. Pt was referred to Dr. Monique by Dr. Moseley to discuss surgery. Sent pt My Chart message with this information. [facility] 36 ----- Message from Mireya Maradiaga MD sent at 01/20/2025 11:45 AM EDT ----- Please schedule patient with Dr. Moseley or Dr. Powell to discuss robotic suprapubic prostatectomy [facility] 36 Patient was gave john hyde verbatim per Dr. Moseley. Pt phone was very statically but he was able to hear me I just couldn't hear him. Normal [facility] Consulton 01-23-2025 Consult [facility] Wound Care CONSULT Note Stephane Toribio AGE: 64 y.o. GENDER: male : 1960 Subjective: HISTORY of PRESENT ILLNESS HPI Stephane Toribio is a 64 y.o. male who presents for a wound consult. HPI: Mr. Toribio is a 64-year-old gentleman with a history of BPH and bladder spasm was recently seen by urology in the setting of a very large prostate. He was scheduled for robotic suprapubic prostatectomy. But given the fact the patient has urinary retention, he can Mendoza catheter was placed and he currently is being admitted for further evaluation with urology consultation. Patient reports he goes to [place] outpatient wound care. Last visit was early last week. Reports Calcium alginate AG being applied and changing it daily with compression therapy. Wound Care consulted for wound to right posterior LE. PAST MEDICAL HISTORY Medical History[1] PAST SURGICAL HISTORY Surgical History[2] FAMILY HISTORY Family History[3] SOCIAL HISTORY Social History[4] ALLERGIES Allergies[5] MEDICATIONS Medications Ordered Prior to Encounter[6] REVIEW OF SYSTEMS Pertinent items are noted in HPI. Objective: BP 140/82 (BP Location: Left arm, Patient Position: Sitting) Pulse 70 Temp (!) 35.6 ?C (96 ?F) (Temporal) Resp 16 Ht 5' 10 (1.778 m) Wt (!) 307 lb (139 kg) SpO2 96% BMI 44.05 kg/m? PHYSICAL EXAM General appearance: in no apparent distress, alert, and oriented times 3 Skin: warm and dry Pulmonary: Normal effort, no respiratory distress, no cyanosis Extremities: edema RLE, venous stasis dermatitis noted, + palpable right DP Right lateral calf: 0.5cmx0.3cmx0.1cm. [place] tissue to wound bed. Scant serosang drainage. Periwound with scarring and fragile 01/23/25 LABS CBC: Lab Results Component Value Date WBC 11.4 (H) 01/21/2025 HGB 13.0 01/21/2025 HCT 38.7 (L) 01/21/2025 MCV 87.4 01/21/2025 PLT 255 01/21/2025 BMP: Lab Results Component Value Date NA 139 01/21/2025 K 4.1 01/21/2025 CL 107 01/21/2025 CO2 22 (L) 01/21/2025 BUN 16 01/21/2025 CREATININE 1.32 (H) 01/21/2025 PT/INR: No results found for: PROTIME, INR Prealbumin: No results found for: PREALBUMIN Albumin:No components found for: LABALBU Sed Rate:No results found for: SEDRATE Micro: No components found for: BC Assessment/Plan: Nursing staff to perform dressing change: Right lateral calf: Venous ulcer (fat) - Clean with NS, apply adaptic then cover with DCD daily, secure with tubigrip - Elevate while in chair Nutritional support Wound Care to follow Any questions or concerns please secure chat [facility] wound/ostomy. Thank you for the consult! I personally obtained the parker and critical portions of the history and physical exam. I reviewed the labs, imaging studies, and electronic medical record. I reviewed the chart documentation and discussed the patient with treatment team members. I have edited the note to reflect my clinical findings and my assessment and plan. Please note, the time of this note does not reflect the time I saw this patient today, but the time of this documentaton. Portions of this note including HPI, ROS, impression/plan, and examination may have been copied forward from admission to today as to provide important historical information essential in contributing to medical decision making. Documentation has been reviewed and edited as necessary to support clinical decision making for today's visit and to reflect my own independent evaluation of this patient. Decision making for today's visit and to reflect my own independent evaluation of this patient. [1] Past Medical History: Diagnosis Date Benign prostatic hyperplasia 3 or 4 years ago Elevated PSA Late 2020 Erectile dysfunction Summer 2020 H/O exercise stress test Hypertension [facility] on CPAP Osteomyelitis (HCC) RIGHT RING FINGER AND SCHEDULED FOR THE SURGERY ON 03/05/20 AT [facility] [2] Past Surgical History: Procedure Laterality Date CHOLECYSTECTOMY [facility] COLONOSCOPY COLONOSCOPY FINGER AMPUTATION Right 03/05/2020 right small finger -dr jackson FINGER SURGERY Left [facility] FINGER SURGERY Left 02/20/2023 Mucous cyst excision long finger with with simple primary closure. arthrotomy DIP joint long finger with excision of osteophytes. Dr Jackson OTHER SURGICAL HISTORY EXCISION OF LIPOMA FROM THE BACK AT [facility] LONG TIME AGO SCAPHOID FRACTURE SURGERY Right [facility] WISDOM TOOTH EXTRACTION [3] Family History Problem Relation Name Age of Onset Arthritis Mother Rachel Toribio Arthritis Father Franki Toribio Hearing loss Father Franki Toribio [4] Social History Tobacco Use Smoking status: Former Current packs/day: 0.00 Types: Cigarettes Quit date: 04/13/1980 Years since qu (more content not included)... Normal [facility] Progress Noteon 01-23-2025 Progress Note Nutrition rescreen completed. Chart reviewed. Patient to be monitored and followed by the diet gyroscopic engineering technician. [place] Nichole, JEANE Normal [facility] Wound Cultureon 01-23-2025 List Antibiotics Las t 48 Hours? none List Antibiotics to be Started? none Wound Culture Brevundimonas diminuta/vesicul Amount Growth Very Rare Brevundimonas diminuta/vesicul: REACTION levoFLOXacin Islt MARLEN 0.25 Meropenem Islt MARLEN <=0.25 S Pip+Tazo Islt MARLEN <=4 S TMP SMX Islt MARLEN <=20 S Normal [facility] Comment on above: Performed By: #### M 100.4001, M100.2000, M100.3000 #### [facility] Laboratory [facility] [place], [place], [id number] BASIC METABOLIC PANELon 01-11 Anion gap [Moles/Vol] 10 mmol/L Normal - [facility] Comment on above: Performed By: #### L AB103, [id number], [id number], LAB15 ####Freezer Unloader: NURY DORADO ([id number])[facility] Calcium [Mass/Vol] 9.5 mg/dL Normal 8.8-10.0 [facility] Comment on above: Performed By: #### L AB103, [id number], [id number], LAB15 ####Freezer Unloader: NURY DORADO ([id number])[facility] ([facility])[address] [place] [address] Chloride [Moles/Vol] 107 mmol/L Normal 98-107 [facility] Comment on above: Performed By: #### L [id number], [id number], [id number], LAB15 ####Freezer Unloader: NURY DORADO ([id number])[facility] ([facility])[address] [place] [address] CO2 [Moles/Vol] 22 mmol/L Low 23-31 [facility] Comment on above: Performed By: #### L AB103, [id number], [id number], LAB15 ####Freezer Unloader: NURY DORADO ([id number])[facility])[address] [place] [address] Creatinine [Mass/Vol] 1.32 mg/dL High 0.72-1.25 [facility] Comment on above: Performed By: #### L AB103, [id number], [id number], LAB15 ####Freezer Unloader: NURY DORADO ([id number])[facility] ([facility])[address] [place] [address] GLOMERULAR FILTRATION RATE ML/MIN/1.73 SQ M.PREDICTED 59.9 mL/min/1.73m*2 Low >60.0 [facility] Comment on above: Result Comment: Calc ulation based on the Chronic Kidney Disease Epidemiology Collaboration (CKD-EPI) equation refit without adjustment for race Performed By: #### L AB103, [id number], [id number], LAB15 ####Freezer Unloader: NURY DORADO ([id number])[facility])[address] [place] [address] Glucose [Mass/Vol] 121 mg/dL High 82-115 [facility] Comment on above: Performed By: #### L AB103, [id number], [id number], LAB15 ####Freezer Unloader: NURY DORADO ([id number])[facility])[address] [place] [address] Potassium [Moles/Vol] 4.1 mmol/L Normal 3.5-5.1 [facility] Comment on above: Result Comment: [facility] potassium values may be up to 0.5 mmol/L lower than serum values. Performed By: #### L AB103, [id number], [id number], LAB15 ####Freezer Unloader: NURY DORADO ([id number])[facility] ([facility])[address] [place] [address] Sodium [Moles/Vol] 139 mmol/L Normal 136-145 [facility] Comment on above: Performed By: #### L AB103, [id number], [id number], LAB15 ####Freezer Unloader: NURY DORADO ([id number])[facility])[address] [place] [address] Urea nitrogen [Mass/Vol] 16 mg/dL Normal 9-23 [facility] Comment on above: Performed By: #### L AB103, [id number], [id number], LAB15 ####Freezer Unloader: NURY DORADO ([id number])[facility])[address] [place] [address] Basic metabolic 1998 panelon 01-21-2025 Anion gap [Moles/Vol] 10 mmol/L 3 - 13 mmol/L [facility] Calcium [Mass/Vol] 9.5 mg/dL 8.8 - 10. 0 mg/dL [facility] Chloride [Moles/Vol] 107 mmol/L 98 - 10 7 mmol/L [facility] CO2 [Moles/Vol] 22 mmol/L Low 23 - 31 mmol/L [facility] Creatinine [Mass/Vol] 1.32 mg/dL High 0.72 - 1.25 mg/dL [facility] GFR/1.73 sq M.predicted (S/P/Bld) [Vol rate/Area] 59.9 mL/min Low - PINF [facility] Comment on above: Calculation based on the Chronic Kidney Disease Epidemiology Collaboration (CKD-EPI) equation refit without adjustment for race Glucose [Mass/Vol] 121 mg/dL High 82 - 115 mg/dL [facility] Interpretation and review of laboratory results Abnormal [facility] Potassium [Moles/Vol] 4.1 mmol/L 3.5 - 5.1 mmol/L [facility] Comment on above: Plasma potassium luz marina ues may be up to 0.5 mmol/L lower than serum values. Sodium [Moles/Vol] 139 mmol/L 136 - 145 mmol/L [facility] Urea nitrogen [Mass/Vol] 16 mg/dL 9 - 23 mg/dL [facility] CBC W Auto Differential pane l (Bld)on 01-21-2025 Basophils (Bld) [#/Vol] 0 10*3/uL 0.0 - 0.2 10*3/uL [facility] Basophils/100 WBC (Bld) 0.3 % 0.0 - 2.0 % [facility] Eosinophils (Bld) [#/Vol] 0.1 10*3/uL 0.0 - 0.5 10*3/uL [facility] Eosinophils/100 WBC (Bld) 1.1 % 0.0 - 6.0 % [facility] Erythrocyte distribution width (RBC) [Ratio] 12 % 11.5 - 15.0 % [facility] Hematocrit (Bld) [Volume fraction] 38.7 % Low 40.0 - 52.0 % [facility] Hemoglobin (Bld) [Mass/Vol] 13 g/dL 13.0 - 18.0 g/dL [facility] Immature granulocytes (Bld) [#/Vol] 0.1 10*3/uL High NINF - 0.1 10*3/uL [facility] Immature granulocytes/100 WBC (Bld) 0.5 % 0.0 - 2.0 % [facility] Interpretation and review of laboratory results Abnormal [facility] Lymphocytes (Bld) [#/Vol] 1.5 10*3/uL 1.0 - 4.3 10*3/uL [facility] Lymphocytes/100 WBC (Bld) 13.2 % Low 15.0 - 45.0 % [facility] MCH (RBC) [Entitic mass] 29.3 pg 26.0 - 34.0 pg [facility] MCHC (RBC) [Mass/Vol] 33.6 % 30.5 - 36.0 % [facility] MCV (RBC) [Entitic vol] 87.4 fL 77.0 - 99.0 fL [facility] Monocytes (Bld) [#/Vol] 0.9 10*3/uL 0.0 - 0.9 10*3/uL [facility] Monocytes/100 WBC (Bld) 8.3 % 5.0 - 13.0 % [facility] Neutrophils (Bld) [#/Vol] 8.7 10*3/uL High 1.8 - 7.5 10*3/uL [facility] Neutrophils/100 WBC (Bld) 76.6 % 38.0 - 82.0 % [facility] Nucleated RBC/100 WBC (Bld) [Ratio] 0 % [facility] Platelet mean volume (Bld) [Entitic vol] 9.3 fL 9.0 - 12.7 fL [facility] Platelets (Bld) [#/Vol] 255 10*3/uL 140 - 440 10*3/uL [facility] RBC (Bld) [#/Vol] 4.43 10*6/uL 4.40 - 5.90 10*6/uL [facility] WBC (Bld) [#/Vol] 11.4 10*3/uL High 3.6 - 10.7 10*3/uL [facility] CBC WITH AUTO DIFFERENTIALon 01-21-2025 Basophils (Bld) [#/Vol] 0.0 10*3/uL Normal 0.0-0.2 [facility] Comment on above: Performed By: #### L [id number] ####Freezer Unloader: NURY DORADO ([id number])[facility] ([facility])[address] [place] [address] Basophils/100 WBC (Bld) 0.3 % Normal 0.0-2.0 [facility] Comment on above: Performed By: #### L [id number] ####Freezer Unloader: NURY DORADO ([id number])[facility] ([facility])[address] [place] [address] Eosinophils (Bld) [#/Vol] 0.1 10*3/uL Normal 0.0-0.5 [facility] Comment on above: Performed By: #### L [id number] ####Freezer Unloader: NURY DORADO ([id number])[facility])[address] [place] [address] Eosinophils/100 WBC (Bld) 1.1 % Normal 0.0-6.0 [facility] Comment on above: Performed By: #### L [id number] ####Freezer Unloader: NURY DORADO ([id number])[facility])[address] [place] [address] Erythrocyte distribution width (RBC) [Ratio] 12.0 % Normal 11.5-15.0 [facility] Comment on above: Performed By: #### L [id number] ####Freezer Unloader: NURY DORADO ([id number])[address] Hematocrit (Bld) [Volume fraction] 38.7 % Low 40.0-52.0 [facility] Comment on above: Performed By: #### L [id number] ####Freezer Unloader: NURY DORADO ([id number])[address] Hemoglobin (Bld) [Mass/Vol] 13.0 g/dL Normal 13.0-18.0 [facility] Comment on above: Performed By: #### L [id number] ####Freezer Unloader: NURY DORADO ([id number])[facility])[address] [place] [address] IMMATURE GRANS % 0.5 % Normal 0.0-2.0 [facility] Comment on above: Performed By: #### L [id number] ####Freezer Unloader: NURY DORADO ([id number])[address] IMMATURE GRANS ABSOLUTE 0.1 10*3/uL High <0.1 [facility] Comment on above: Performed By: #### L [id number] ####Freezer Unloader: NURY DORADO ([id number])[facility])[address] [place] [address] Lymphocytes (Bld) [#/Vol] 1.5 10*3/uL Normal 1.0-4.3 [facility] Comment on above: Performed By: #### L [id number] ####Freezer Unloader: NURY DORADO ([id number])[facility])[address] [place] [address] Lymphocytes/100 WBC (Bld) 13.2 % Low 15.0-45.0 [facility] Comment on above: Performed By: #### L [id number] ####Freezer Unloader: NURY DORADO ([id number])[facility])[address] [place] [address] MCH (RBC) [Entitic mass] 29.3 pg Normal 26.0-34.0 [facility] Comment on above: Performed By: #### L [id number] ####Freezer Unloader: NURY DORADO ([id number])[facility])[address] [place] [address] MCHC 33.6 % Normal 30.5-36.0 [facility] Comment on above: Performed By: #### L [id number] ####Freezer Unloader: NURY DORADO ([id number])[facility])[address] [place] [address] MCV (RBC) [Entitic vol] 87.4 fL Normal 77.0-99.0 [facility] Comment on above: Performed By: #### L [id number] ####Freezer Unloader: NURY DORADO ([id number])[facility])[address] [place] [address] Monocytes (Bld) [#/Vol] 0.9 10*3/uL Normal 0.0-0.9 [facility] Comment on above: Performed By: #### L [id number] ####Freezer Unloader: NURY DORADO ([id number])[facility])[address] [place] [address] Monocytes/100 WBC (Bld) 8.3 % Normal 5.0-13.0 [facility] Comment on above: Performed By: #### L [id number] ####Freezer Unloader: NURY DORADO ([id number])[facility] ([facility])[address] [place] [address] NEUTROPHILS ABSOLUTE 8.7 10*3/uL High 1.8-7.5 [facility] Comment on above: Performed By: #### L [id number] ####Freezer Unloader: NURY DORADO ([id number])[facility] ([facility])[address] [place] [address] Neutrophils/100 WBC (Bld) 76.6 % Normal 38.0-82.0 [facility] Comment on above: Performed By: #### L [id number] ####Freezer Unloader: NURY DORADO ([id number])[facility] ([facility])[address] [place] [address] NRBC 0.0 /100 WBCs Normal 0.0-2.0 [facility] Comment on above: Performed By: #### L [id number] ####Freezer Unloader: NURY DORADO ([id number])[facility] ([facility])[address] [place] [address] Platelet mean volume (Bld) [Entitic vol] 9.3 fL Normal 9.0-12.7 [facility] Comment on above: Performed By: #### L [id number] ####Freezer Unloader: NURY DORADO ([id number])[facility] ([facility])[address] [place] [address] Platelets (Bld) [#/Vol] 255 10*3/uL Normal 140-440 [facility] Comment on above: Performed By: #### L [id number] ####Freezer Unloader: NURY DORADO ([id number])[facility] ([facility])[address] [place] [address] RBC (Bld) [#/Vol] 4.43 10*6/uL Normal 4.40-5.90 [facility] Comment on above: Performed By: #### L [id number] ####Freezer Unloader: NURY DORADO ([id number])[facility] ([facility])[address] [place] [address] WBC (Bld) [#/Vol] 11.4 10*3/uL High 3.6-10.7 [facility] Comment on above: Performed By: #### L [id number] ####Freezer Unloader: NURY DORADO ([id number])[facility] ([facility])[address] [place] [address] COMPLETE URINALYSIS WITH REF RADHA TO CULTUREon 01-21-2025 BACTERIA (#/HPF) IN URINE Few Abnormal Negative [facility] Comment on above: Performed By: #### L [id number] #### Freezer Unloader: NURY DORADO ([id number]) [facility] ([facility]) [address] [place] [address] BILIRUBIN, TOTAL PRESENCE IN URINE Negative Normal Negative [facility] Comment on above: Performed By: #### L [id number] #### Freezer Unloader: NURY DORADO ([id number]) [facility] ([facility]) [address] [place] [address] Clarity (U) Clear Normal Clear [facility] Comment on above: Performed By: #### L [id number] #### Freezer Unloader: NURY DORADO ([id number]) [facility] ([facility]) [address] [place] [address] Color (U) Dark Yellow Abnormal Lt. Yellow [facility] Comment on above: Performed By: #### L [id number] #### Freezer Unloader: NURY DROADO ([id number]) [facility] ([facility]) [address] [place] [address] GLUCOSE (MG/DL) IN URINE Normal Normal Normal (<70) [facility] Comment on above: Performed By: #### L [id number] #### Freezer Unloader: NURY DORADO ([id number]) [facility] ([facility]) [address] [place] [address] HEMOGLOBIN PRESENCE IN URINE 0.2 mg/dL Abnormal Negative [facility] Comment on above: Performed By: #### L [id number] #### Freezer Unloader: NURY DORADO ([id number]) [facility] ([facility]) [address] [place] [address] Ketones Ql (U) Negative Normal Negative [facility] Comment on above: Performed By: #### L [id number] #### Freezer Unloader: NURY DORADO ([id number]) [facility] ([facility]) [address] [place] [address] LEUKOCYTE ESTERASE PRESENCE IN URINE BY TEST STRIP 250 Joe/uL Abnormal Negative [facility] Comment on above: Performed By: #### L [id number] #### Freezer Unloader: NURY DORADO ([id number]) [facility] ([facility]) [address] [place] [address] MUCUS (#/LPF) IN URINE SEDIMENT Few Normal Negative [facility] Comment on above: Performed By: #### L [id number] #### Freezer Unloader: NURY DORADO ([id number]) [facility] ([facility]) [address] [place] [address] NITRITE PRESENCE IN URINE Negative Normal Negative [facility] Comment on above: Performed By: #### L [id number] #### Freezer Unloader: NURY DORADO ([id number]) [facility] ([facility]) [address] [place] [address] pH (U) 7.0 [pH] Normal 5.0-8.0 [facility] Comment on above: Performed By: #### L [id number] #### Freezer Unloader: NURY DORADO ([id number]) [facility] ([facility]) [address] [place] [address] Protein (U) [Mass/Vol] Negative Normal Negative [facility] Comment on above: Performed By: #### L [id number] #### Freezer Unloader: NURY DORADO ([id number]) [facility] ([facility]) [address] [place] [address] [place] RBC (#/HPF) IN URINE SEDIMENT 26-50 Abnormal 0-2 [facility] Comment on above: Performed By: #### L [id number] #### Freezer Unloader: NURY DORADO ([id number]) [facility] ([facility]) [address] [place] [address] Specific gravity (U) [Rel density] 1.023 Normal 1.005-1.03 0 [facility] Comment on above: Result Comment: TAY Bailon COMMENTS: A specimen with <=10 WBC is not consistent with inflammation. This specimen will not reflex to a urine culture. Performed By: #### L [id number] #### Freezer Unloader: NURY DORADO ([id number]) [facility] ([facility]) [address] [place] [address] SQUAMOUS EPITHELIAL CELLS (#/HPF) IN URINE SEDIMENT Negative Normal 3-5 [facility] Comment on above: Performed By: #### L [id number] #### Freezer Unloader: NURY DORADO ([id number]) [facility] ([facility]) [address] [place] [address] UROBILINOGEN (MG/DL) IN URINE Normal Normal Normal (0-1) [facility] Comment on above: Performed By: #### L [id number] #### Freezer Unloader: NURY DORADO ([id number]) [facility] ([facility]) [address] [place] [address] WBC (LEUKOCYTE) (#/HPF) IN URINE SEDIMENT 6-10 Abnormal 0-5 [facility] Comment on above: Performed By: #### L [id number] #### Freezer Unloader: NURY DORADO ([id number]) [facility] ([facility]) [address] [place] [address] CT ABDOMEN PELVIS W CONTRAST on 01-21-2025 CT ABDOMEN PELVIS W CONTRAST Patient Name: STEPHANE TORIBIO : 1960 Exam Date/Time: 01/21/2025 19:43 Procedure: CT ABDOMEN PELVIS W CONTRAST Ordering Provider: WHITT TRESA Reason For Exam: Abdominal pain, acute, nonlocalized; difficulty urinating/enlarged prostate Gender: Male Age: 64 years Exam: CT ABDOMEN PELVIS W CONTRAST Indication: Difficulty urinating. Prostatomegaly. Abdominal pain. Scan Parameters: Multiple axial CT images were obtained of the abdomen and pelvis. Coronal and sagittal reconstructions were reviewed as well. ALARA protocol. Dose reduction was employed with automated exposure control. Contrast: IV contrast; no GI contrast Comparison: MRI pelvis 01/10/2025 FINDINGS: The heart is not enlarged. A few atherosclerotic calcifications are present along the aorta and branches. The lung bases are clear. There is no acute osseous process. There is leftward curvature of the lumbar spine with apex at L2-L3 with endplate sclerosis and loss of disc space height predominantly to the right at L2-L3, with right neural foraminal canal narrowing. The gallbladder is surgically absent. The liver, pancreas, spleen, and adrenal glands are within normal limits. The kidneys symmetrically enhance with mild perinephric edema. There is no hydronephrosis. Bilateral small cortical cysts require no follow-up. A Mendoza catheter is present within the bladder which is not well-distended with a few locules of air which are likely due to fat Mendoza insertion. There is no appreciable wall thickening. The prostate gland is enlarged measuring approximately 6.5 x 7.0 x 8.3 cm with impression upon the posterior aspect of the bladder (correlate with MRI pelvis 01/10/2025). Bilateral fatty inguinal hernias are present with a small lymph node on the right. There is tethering upon the anterior aspect of the bladder on the right towards the inguinal canal. There is no bowel obstruction. A few colonic diverticuli are present. The appendix is normal. A small sliding-type hiatal hernia is present. There is no lymphadenopathy. IMPRESSION: 1. Prostatomegaly which protrudes into the posterior bladder wall (correlate with MRI pelvis 01/10/2025). A Mendoza catheter is present in a decompressed bladder. 2. Colonic diverticulosis. 3. Additional findings, as above. Report Dictated on Electronically Signed By: Cheyenne Mcnamara MD Electronically Signed Date/Time: 01/21/2025 8:03 PM EDT Continued urinary issues, Bladder delay completed Normal [facility] CT Abdomen and Pelvis W cont rast Abby 01-21-2025 1. Prostatomegaly which protrudes into the posterior bladder wall (correlate with MRI pelvis 01/10/2025). A Mendoza catheter is present in a decompressed bladder. 2. Colonic diverticulosis. 3. Additional findings, as above. Report Dictated on Electronically Signed By: Cheyenne Mcnamara MD Electronically Signed Date/Time: 01/21/2025 8:03 PM [facility] Patient Name: STEPHNAE TORIBIO : 1960 [facility]#: [id number] Exam Date/Time: 01/21/2025 19:43 Procedure: CT ABDOMEN PELVIS W CONTRAST Ordering Provider: WHITT TRESA Reason For Exam: Abdominal pain, acute, nonlocalized; difficulty urinating/enlarged prostate Gender: Male Age: 64 years Exam: CT ABDOMEN PELVIS W CONTRAST Indication: Difficulty urinating. Prostatomegaly. Abdominal pain. Scan Parameters: Multiple axial CT images were obtained of the abdomen and pelvis. Coronal and sagittal reconstructions were reviewed as well. ALARA protocol. Dose reduction was employed with automated exposure control. Contrast: IV contrast; no GI contrast Comparison: MRI pelvis 01/10/2025 FINDINGS: The heart is not enlarged. A few atherosclerotic calcifications are present along the aorta and branches. The lung bases are clear. There is no acute osseous process. There is leftward curvature of the lumbar spine with apex at L2-L3 with endplate sclerosis and loss of disc space height predominantly to the right at L2-L3, with right neural foraminal canal narrowing. The gallbladder is surgically absent. The liver, pancreas, spleen, and adrenal glands are within normal limits. The kidneys symmetrically enhance with mild perinephric edema. There is no hydronephrosis. Bilateral small cortical cysts require no follow-up. A Mendoza catheter is present within the bladder which is not well-distended with a few locules of air which are likely due to fat Mendoza insertion. There is no appreciable wall thickening. The prostate gland is enlarged measuring approximately 6.5 x 7.0 x 8.3 cm with impression upon the posterior aspect of the bladder (correlate with MRI pelvis 01/10/2025). Bilateral fatty inguinal hernias are present with a small lymph node on the right. There is tethering upon the anterior aspect of the bladder on the right towards the inguinal canal. There is no bowel obstruction. A few colonic diverticuli are present. The appendix is normal. A small sliding-type hiatal hernia is present. There is no lymphadenopathy. [facility] Cheyenne Mcnamara MD - 01/21/2025 Patient Name: STEPHANE TORIBIO : 1960 Exam Date/Time: 01/21/2025 19:43 Procedure: CT ABDOMEN PELVIS W CONTRAST Ordering Provider: WHITT TRESA Reason For Exam: Abdominal pain, acute, nonlocalized; difficulty urinating/enlarged prostate Gender: Male Age: 64 years Exam: CT ABDOMEN PELVIS W CONTRAST Indication: Difficulty urinating. Prostatomegaly. Abdominal pain. Scan Parameters: Multiple axial CT images were obtained of the abdomen and pelvis. Coronal and sagittal reconstructions were reviewed as well. ALARA protocol. Dose reduction was employed with automated exposure control. Contrast: IV contrast; no GI contrast Comparison: MRI pelvis 01/10/2025 FINDINGS: The heart is not enlarged. A few atherosclerotic calcifications are present along the aorta and branches. The lung bases are clear. There is no acute osseous process. There is leftward curvature of the lumbar spine with apex at L2-L3 with endplate sclerosis and loss of disc space height predominantly to the right at L2-L3, with right neural foraminal canal narrowing. The gallbladder is surgically absent. The liver, pancreas, spleen, and adrenal glands are within normal limits. The kidneys symmetrically enhance with mild perinephric edema. There is no hydronephrosis. Bilateral small cortical cysts require no follow-up. A Mendoza catheter is present within the bladder which is not well-distended with a few locules of air which are likely due to fat Mendoza insertion. There is no appreciable wall thickening. The prostate gland is enlarged measuring approximately 6.5 x 7.0 x 8.3 cm with impression upon the posterior aspect of the bladder (correlate with MRI pelvis 01/10/2025). Bilateral fatty inguinal hernias are present with a small lymph node on the right. There is tethering upon the anterior aspect of the bladder on the right towards the inguinal canal. There is no bowel obstruction. A few colonic diverticuli are present. The appendix is normal. A small sliding-type hiatal hernia is present. There is no lymphadenopathy. IMPRESSION: 1. Prostatomegaly which protrudes into the posterior bladder wall (correlate with MRI pelvis 01/10/2025). A Mendoza catheter is present in a decompressed bladder. 2. Colonic diverticulosis. 3. Additional findings, as above. Report Dictated on Electronically Signed By: Cheyenne Mcnamara MD Electronically Signed Date/Time: 01/21/2025 8:03 PM EDT [facility] Study observation (narrative) [facility] CT Abdomen and Pelvis W cont rast IVOrdered By: Cheyenne Mcnamara on 01-21-2025 [facility] Work Phone: Consulton 01-21-2025 Consult ------ -- Attestation signed by Abimael Moseley MD at 01/22/2025 8:51 AM I saw and evaluated the patient, participating in the parker portions of the service. I reviewed the resident?s note. I agree with the resident?s findings and plan. Discussed with patient, explained given his obesity and massive prostate size, Holep may be the best option for him I referred him to Dr Vishnu Monique at [facility] for Holep Abimael Moseley MD -- Urology Consult 01/21/2025 HISTORY OF PRESENT ILLNESS: The patient is a 64 y.o. male, known to our service, with past medical history as listed below and significant for BPH w/ urinary retention managed with a chronic mendoza who is here for concerns of mendoza dysfunction. Patient was seen in the office yesterday for similar complaints. At that time, mendoza was evaluated by Dr. Maradiaga who found catheter to be patent. He did have significant bladder spasms for which Dr. Maradiaga explained this is likely secondary to chronic retention in the setting of a very enlarged prostate. He is suppose to have follow up outpatient with one of the robotic urologists for discussions of a Suprapubic prostatectomy. According to the patient and family at bedside, patient has had intermittent episodes of suprapubic accompanied with leaking around mendoza. Additionally, reports passing some clots through his mendoza. Ultimately, he presents to the ED for urology evaluation. The mendoza catheter was flushed by the ED staff for patency but did trigger a bladder spasm and had slight resistance on the aspiration. Pt evaluated at bedside, he is AF and HDS. Mendoza draining yellow urine. ED/Hospital workup Cr 1.3 (@ BL); WBC 11.4; HGB 13; CTX; CT - prostamegaly, decompressed bladder; 22Fr mendoza; [facility] PAST MEDICAL HISTORY: Medical History[1] PAST SURGICAL HISTORY: Surgical History[2] ALLERGIES: Allergies[3] HOME MEDICATIONS: Prescriptions Prior to Admission[4] FAMILY HISTORY: Family History[5] Social History: Tobacco Use History[6] Social History Substance and Sexual Activity Alcohol Use Yes Alcohol/week: 7.0 standard drinks of alcohol Types: 5 Cans of beer per week ROS: Constitutional: see HPI for chills and fevers HEENT: no blurry vision or eye redness Respiratory: negative for hemoptysis and shortness of breath Cardiovascular: negative for dyspnea and syncope Gastrointestinal: negative for jaundice, see HPI regarding nausea and vomiting Genitourinary: see HPI Hematologic/lymphatic: negative for bleeding Integumentary: no new bruises or lesions Musculoskeletal:negative for muscle weakness Neurological: negative for coordination problems and seizures All other systems negative PHYSICAL EXAM: VITALS: Vitals: 01/21/25 1729 01/21/25 1925 BP: (!) 165/84 (!) 180/69 BP Location: Left arm Patient Position: Sitting Pulse: 82 86 Resp: 18 18 Temp: 37.1 ?C (98.8 ?F) TempSrc: Temporal SpO2: 98% 100% General: Alert, in no acute distress Head: Normocephalic, atraumatic Respiratory: no respiratory distress, normal effort, no audible wheezes Cardiovascular: regular pulse and no cyanosis Abdomen: soft, non distended, non tender : No R. flank TTP, No L. flank TTP, and No suprapubic TTP 22Fr mendoza draining yellow urine DATA: LABS: BMP: Lab Results Component Value Date NA 139 01/21/2025 K 4.1 01/21/2025 CL 107 01/21/2025 CO2 22 (L) 01/21/2025 BUN 16 01/21/2025 CREATININE 1.32 (H) 01/21/2025 CALCIUM 9.5 01/21/2025 GLUCOSE 121 (H) 01/21/2025 CBC: Lab Results Component Value Date WBC 11.4 (H) 01/21/2025 HGB 13.0 01/21/2025 HCT 38.7 (L) 01/21/2025 MCV 87.4 01/21/2025 PLT 255 01/21/2025 RADIOLOGY: CT abdomen pelvis w contrast Final Result 1. Prostatomegaly which protrudes into the posterior bladder wall (correlate with MRI pelvis 01/10/2025). A Mendoza catheter is present in a decompressed bladder. 2. Colonic diverticulosis. 3. Additional findings, as above. Report Dictated on Electronically Signed By: Cheyenne Mcnamara MD Electronically Signed Date/Time: 01/21/2025 8:03 PM EDT XR chest 1 view Final Result FINDINGS AND IMPRESSION: SUPPORT DEVICES: None OSSEOUS STRUCTURES: Unremarkable. HEART AND MEDIASTINUM: The cardiomediastinal silhouette appears unchanged from the prior exam. LUNGS AND PLEURA: The lungs are clear. No sizable pleural effusion. Report Dictated on Electronically Signed By: Jani Estrada MD Electronically Signed Date/Time: 01/21/2025 6:57 PM EDT IMPRESSION: 64 y.o. male with bladder spasms PLAN: - no acute urologic surgical intervention at this time - maintain mendoza to straight drain - continue ant-cholinergics - recently changed to Vesicare 10mg - pyridium - cont (more content not included)... Normal [facility] ECG 12-LEADon 01-21-2025 ECG 12-LEAD IMPRESSION: Sinus rhythm Supraventricular bigeminy Electronically Signed On 01-21-2025 18:56:53 EDT by Vani Muñiz [facility] ED Nursing Noteon 01-21-2025 ED Nursing Note Bladder irrigated at bedside - 60 ml in but ORGANISATIONAL PSYCHOLOGIST was unable to pull any urine out. Pt stating he feels full and like he has to pee. Pt denies any pain at this time and tolerated procedure well. Normal [facility] ED Provider Noteon ED Provider Note EMERGENCY DEPARTMENT ENCOUNTER Pt Name: Stephane Toribio Birthdate 1960 Date of evaluation: 01/21/2025 ED Provider: Jade Whitt APRN - [facility]care was supervised by Dr. Muñiz who independently examined and evaluated the patient. Please see their attestation note for further details. CHIEF COMPLAINT Chief Complaint Patient presents with Urinary Catheter Problem Reports having mendoza placed at another hospital Thursday while out of town, here today after completing antibiotics c/o passing blood clots/bladder spasms HISTORY OF PRESENT ILLNESS (Location/Symptom, Timing/Onset, Context/Setting, Quality, Duration, Modifying Factors, Severity) Note limiting factors. I wore appropriate PPE for the entirety of this encounter. HPI Stephane Toribio is a 64 y.o. history of reflux, anxiety, hematuria, obstructive sleep apnea, hypercholesterolemia presents with pain difficulty urinating. Patient states he was seen evaluated 01/15/2025 in [facility] in [place] for urinary retention and hematuria. Patient underwent CBI irrigation with continued bleeding underwent a cystoscopy and Fulguration of prostatic bleeders. Patient retained his Mendoza catheter. Was seen evaluated in the emergency department on 01/17/2025 difficulty urinating feeling like he had to force himself to urinate through the catheter. Patient also noted that his urine had a blood tinge. Blood work was obtained bladder scan patient had showed 124 mL 950 mL drained from the Mendoza bag. Patient was evaluated by urology thought to be having bladder spasms through the Mendoza catheter was draining appropriately. Patient saw his urologist yesterday Dr. Maradiaga Catheter was irrigated patent. He was notified and urology team Patient developed significant spasm and a great deal discomfort with 60 mL of saline in the bladder. And noticed. Spurts out around the catheter. Was thought to be secondary to a markedly enlarged prostate. Patient was dose of Solifenacin was increased to 10mg. Patient was also referred to robotic surgeon for next step in management of abnormal regions of the prostate. Patient states last night he had severe discomfort forcing himself to urinate by straining was unable to sleep due to frequency of these symptoms. Reports he has been placing toilet tissue around his penis and when he forces himself to urinate due the toilet tissue will become saturated with urine and some urine will drain into the bag. Family states that there was 700 mL of urine earlier today with small blood clots. Drained at 230 and currently has about 600 mL of urine in the bag patient continues to have intermittent episodes of difficulty urinating with yelling straining himself to urinate. Clothing is saturated with urine. He denies any fever but has had chills and nausea. He reports he feels like his heart rate is irregular will drop between 40 and 110 according to his watch. Patient states they believe he has atrial for but has not been able to catch it on the monitor he denies any chest pain or shortness of breath. No cough congestion runny nose sore throat. Presents now for evaluation of difficulty urinating and catheter malfunction Nursing Notes were reviewed. Limitations to history: None Outside historians: None REVIEW OF SYSTEMS Review of Systems Pertinent positives and negatives as per HPI. PAST MEDICAL HISTORY Medical History[1] SURGICAL HISTORY Surgical History[2] CURRENT MEDICATIONS Previous Medications ACETAMINOPHEN (TYLENOL) 325 MG TABLET Take 650 mg by mouth. ASPIRIN 81 MG EC TABLET Take 81 mg by mouth in the morning. B COMPLEX VITAMINS CAPSULE Take 1 capsule by mouth. BACILLUS COAGULANS-INULIN (PROBIOTIC) 1-250 BILLION-MG CAPSULE Take by mouth. CEPHALEXIN (KEFLEX) 500 MG CAPSULE 500 mg. CHOLECALCIFEROL (VITAMIN D-3) 50 MCG (2000 UT) CAPSULE Take 5,000 Units by mouth. ESOMEPRAZOLE (NEXIUM) [address] CAPSULE Take 40 mg by mouth. FINASTERIDE (PROSCAR) 5 MG TABLET Take 1 tablet (5 mg) by mouth daily. LISINOPRIL 20 MG TABLET Take 20 mg by mouth. LORATADINE (CLARITIN) 10 MG TABLET Take 10 mg by mouth daily. MELATONIN 5 MG TABLET Take 5 mg by mouth. MISC NATURAL PRODUCTS (PROSTATE HEALTH) CAPSULE Take by mouth. MONTELUKAST (SINGULAIR) 10 MG TABLET Take 10 mg by mouth Nightly. MULTIPLE VITAMIN (MULTI-VITAMIN) TABLET Take 1 tablet by mouth in the morning. NAPROXEN (NAPROSYN) 500 MG TABLET Take 500 mg by mouth every 12 hours as needed. With food or milk OMEGA-3 (FISH OIL) 1200 MG CAPSULE Take 1,200 mg by mouth. OMEGA-3 ACID ETHYL ESTERS (LOVAZA) 1 G CAPSULE 2 tablets Every 24 hours. PROBIOTIC PRODUCT (PROBIOTIC BLEND) CAPSULE Every 24 hours. SILDENAFIL (VIAGRA) 100 MG TABLET take 1/2 to 1 tablet by mouth once daily if needed SOLIFENACIN (VESICARE) 10 MG TABLET Take 1 tablet (10 mg) by mouth daily. Swallow tablet whole; do not crush, chew, or split. SOLIFENACIN (VESICARE) 5 MG TA (more content not included)... [facility] ED Provider Note Emergency Department Encounter [facility] EMERGENCY DEPT Patient: Stephane Toribio : 1960 Date of Evaluation: 01/21/2025 ED Supervising Physician: Vani Muñiz MD I personally evaluated Stephane Toribio and made/approved the management plan and take responsibility for the patient management. This will serve as my Supervisory note and shared attestation. I did perform a substantive portion of the visit including all aspects of the Medical Decision Making. I wore appropriate PPE for the entirety of this encounter. In brief, Stephane Toribio is a 64 y.o. that presents to the emergency department with a chief complaint of urinary Mendoza catheter issue. Patient reports that he was seen a few days ago for hematuria, he followed up with his urologist yesterday where irrigation was done and he was doing well, but then today started feeling like he had to force urine through his Mendoza catheter and was having most of the urine come out around his Mendoza catheter while urinating. Also reports feeling like he is having bladder spasms as well as having palpitations. Just finished a round of Keflex. Denies any fevers, vomiting, diarrhea, chest pain, shortness of breath. Focused exam: On exam, NAD, abdomen is soft and nontender, yellow urine in Mendoza bag. Brief ED course/MDM: ED Course as of 01/21/252256 Sat Jan 21, [id number] Patient presenting with concern for urinary blockage versus UTI. Patient also reports like he feels like he is having palpitations. No chest pain or shortness of breath. Was seen a few days ago for urinary Mendoza blockage due to hematuria, had it irrigated yesterday by urology, today he feels like strain in order to get urine to pass through the Mendoza and he feels like is having bladder spasms. Differential for this patient includes Mendoza obstruction, UTI, cardiac dysrhythmia, metabolic/electrolyte derangement, ACS. Labs and imaging ordered for further evaluation. Urology was consulted, recommending antispasmodics along with bladder irrigation. [JS] 1812 ECG 12 lead (Now) Sinus rhythm with supraventricular bigeminy, no ST elevations, intervals WNL [JS] 1837 Auto WBC(!): 11.4 [JS] 1836 HEMOGLOBIN: 13.0 [JS] 2106 Bladder irrigation was performed, unable to withdraw any of the fluid that was instilled. CT imaging was ordered, patient given antispasmodics per urology recommendations. [JS] 2107 CT abdomen pelvis w contrast 1. Prostatomegaly which protrudes into the posterior bladder wall (correlate with MRI pelvis 01/10/2025). A Mendoza catheter is present in a decompressed bladder. 2. Colonic diverticulosis. [JS] 2107 ECG 12 lead (Now) No acute cardiopulmonary process [JS] 2107 Creatinine(!): 1.32 Stable [JS] 2108 POTASSIUM: 4.1 [JS] 2108 MAGNESIUM: 1.9 [JS] 2108 THYROID STIMULATING HORMONE: 0.94 [JS] 2108 Troponin HS Serial Baseline: 4 [JS] 2250 Complete Urinalysis with reflex to Culture(!) Rocephin ordered. [JS] 2250 2h Troponin HS (Serial 2nd Troponin): 4 [JS] 2250 Patient's still having symptoms after antispasmodics. Discussed with urology who is agreeable to having patient admitted for observation. [JS] ED Course User Index [JS] Vani Muñiz MD [TB] Jade Whitt APRN - STARCH TREATING ASSISTANT Diagnoses as of 01/21/252256 Bladder spasm Lower abdominal pain Urinary tract infection associated with indwelling urethral catheter, initial encounter Medical Decision Making Problems Addressed: Bladder spasm: complicated acute illness or injury Lower abdominal pain: complicated acute illness or injury Amount and/or Complexity of Data Reviewed Labs: ordered. Decision-making details documented in ED Course. Radiology: ordered. Decision-making details documented in ED Course. ECG/medicine tests: ordered and independent interpretation performed. Decision-making details documented in ED Course. Risk Prescription drug management. Decision regarding hospitalization. Medications administered in the ED include those listed below. Clinical impression: 1. Bladder spasm 2. Lower abdominal pain 3. Urinary tract infection associated with indwelling urethral catheter, initial encounter Medications cefTRIAXone (Rocephin) 1,000 mg in sodium chloride 0.9 % 50 mL IVPB Mini-Bag Plus (1,000 mg IntraVENous New Bag 01/21/252127) morphine injection 2 mg (2 mg IntraVENous Given 01/21/251824) ondansetron (Zofran) injection 4 mg (4 mg IntraVENous Given 01/21/251824) sodium chloride 0.9 % bolus 1,000 mL (0 mL IntraVENous Stopped 01/21/252126) phenazopyridine (Pyridium) tablet 200 mg (200 mg Oral Given 01/21/251828) trospium (Sanctura) tablet 20 mg (20 mg Oral Given 01/21/251828) iopamidol (Isovue-370) 76 % injection 75 mL (75 mL IntraVENous Given 01/21/251943) All diagnostic, treatment, and disposition decisions were made by myself in conjunction with the RAMON. For all further details of the patient's emergency department visit, ple (more content not included)... [facility] ED Provider Note Emergency Department Encounter Location: [facility] OBSERVATION UNIT [facility]E Patient: Stephane Toribio : 1960 Date of evaluation: 01/21/2025 ED Provider: Verena Hidalgo PA-C Time received sign-out: [id number] Stephane Toribio was checked out to me by Jade Woo CNP. Please see his/her initial documentation for details of the patient's initial ED presentation, physical exam and completed studies. I did perform a substantive portion of the visit including all aspects of the Medical Decision Making. In brief, Stephane Toribio is a 64 y.o. male that presented to the emergency department for evaluation with concerns for Mendoza catheter malfunction. Patient has been seen multiple times recently with concerns for Mendoza catheter malfunction. Known to Dr. Maradiaga. Recently had abnormal PSA labs and imaging. Is in the process of getting scheduled for robotic prostatectomy. Presents back to the emergency department because he is having significant bladder spasms, and feels his Mendoza catheter is not draining appropriately. I have reviewed and interpreted all of the currently available lab results and diagnostics from this visit: Results for orders placed or performed during the hospital encounter of 01/21/25 ECG 12 lead (Now) Collection Time: 01/21/25 5:55 PM Result Value Ref Range Heart Rate 87 bpm QRSD Interval 92 ms QT Interval 349 ms QTC Interval 420 ms P [place] 60 degrees QRS [place] 45 degrees T Wave [place] 62 degrees MI Interval 154 ms Basic metabolic panel Collection Time: 01/21/25 6:23 PM Result Value Ref Range SODIUM 139 136 - 145 mmol/L POTASSIUM 4.1 3.5 - 5.1 mmol/L CHLORIDE 107 98 - 107 mmol/L CARBON DIOXIDE 22 (L) 23 - 31 mmol/L UREA NITROGEN 16 9 - 23 mg/dL CREATININE 1.32 (H) 0.72 - 1.25 mg/dL GLUCOSE 121 (H) 82 - 115 mg/dL CALCIUM 9.5 8.8 - 10.0 mg/dL ANION GAP 10 3 - 13 mmol/L eGFR 59.9 (L) >60.0 mL/min/1.73m*2 CBC auto differential Collection Time: 01/21/25 6:23 PM Result Value Ref Range Auto WBC 11.4 (H) 3.6 - 10.7 10*3/uL RBC 4.43 4.40 - 5.90 10*6/uL Hemoglobin 13.0 13.0 - 18.0 g/dL Hematocrit 38.7 (L) 40.0 - 52.0 % MCV 87.4 77.0 - 99.0 fL MCH 29.3 26.0 - 34.0 pg MCHC 33.6 30.5 - 36.0 % RDW 12.0 11.5 - 15.0 % Platelets 255 140 - 440 10*3/uL MPV 9.3 9.0 - 12.7 fL nRBC 0.0 0.0 - 2.0 /100 WBCs Neutrophils Relative 76.6 38.0 - 82.0 % Lymphocytes Relative 13.2 (L) 15.0 - 45.0 % Monocytes Relative 8.3 5.0 - 13.0 % Eosinophils Relative 1.1 0.0 - 6.0 % Basophils Relative 0.3 0.0 - 2.0 % Immature Grans % 0.5 0.0 - 2.0 % Neutrophils Absolute 8.7 (H) 1.8 - 7.5 10*3/uL Lymphocytes Absolute 1.5 1.0 - 4.3 10*3/uL Monocytes Absolute 0.9 0.0 - 0.9 10*3/uL Eosinophils Absolute 0.1 0.0 - 0.5 10*3/uL Basophils Absolute 0.0 0.0 - 0.2 10*3/uL Immature Grans Absolute 0.1 (H) <0.1 10*3/uL Serial Troponin, High Sensitivity Collection Time: 01/21/25 6:23 PM Result Value Ref Range Troponin HS Serial Baseline 4 <=35 ng/L TSH Collection Time: 01/21/25 6:23 PM Result Value Ref Range THYROID STIMULATING HORMONE 0.94 0.35 - 4.94 uIU/mL Magnesium Collection Time: 01/21/25 6:23 PM Result Value Ref Range MAGNESIUM 1.9 1.6 - 2.6 mg/dL Complete Urinalysis with reflex to Culture Collection Time: 01/21/25 9:24 PM Result Value Ref Range Color, Urine Dark Yellow (A) Lt. Yellow Clarity, Urine Clear Clear pH, Urine 7.0 5.0 - 8.0 pH Leukocytes, Urine 250 (A) Negative Joe/uL Nitrite, Urine Negative Negative Protein, Urine Negative Negative mg/dL Glucose, Urine Normal Normal (<70) mg/dL Bilirubin, Urine Negative Negative mg/dL Ketones, Urine Negative Negative mg/dL Urobilinogen, Urine Normal Normal (0-1) mg/dL Blood, Urine 0.2 (A) Negative mg/dL RBC, Urine 26-50 (A) 0 - 2 /HPF WBC, Urine 6-10 (A) 0 - 5 /HPF Squamous Epithelial, Urine Negative 3 - 5 /HPF Bacteria, Urine Few (A) Negative /HPF Mucus, Urine Few Negative /LPF SPECIFIC GRAVITY OF URINE (NUMERIC) 1.023 1.005 - 1.030 Troponin, High Sensitivity, Serial, Second Test Collection Time: 01/21/25 9:26 PM Result Value Ref Range 2h Troponin HS (Serial 2nd Troponin) 4 <=35 ng/L CT abdomen pelvis w contrast Final Result 1. Prostatomegaly which protrudes into the posterior bladder wall (correlate with MRI pelvis 01/10/2025). A Mendoza catheter is present in a decompressed bladder. 2. Colonic diverticulosis. 3. Additional findings, as above. Report Dictated on Electronically Signed By: Cheyenne Mcnamara MD Electronically Signed Date/Time: 01/21/2025 8:03 PM EDT XR chest 1 view Final Result FINDINGS AND IMPRESSION: SUPPORT DEVICES: None OSSEOUS STRUCTURES: Unremarkable. HEART AND MEDIASTINUM: The cardiomediastinal silhouette appears unchanged from the prior exam. LUNGS AND PLEURA: The lungs are clear. No sizable pleural effusion. Report Dictated on Electronically Signed By: Jani Estrada MD (more content not included)... Normal [facility] HIGH SENSITIVITY TROPONIN, S ERIAL BASELINEon 01-21-2025 TROPONIN HS SERIAL BASELINE 4 ng/L Normal <=35 [facility] Comment on above: Result Comment: In i ndividuals presenting with symptoms > 2h, a baseline troponin <= 5 ng/L suggests acute cardiac injury is unlikely and further serial testing is generally not indicated. Performed By: #### L [id number], [id number], [id number], [id number] ####Freezer Unloader: NURY DORADO ([id number])[address] HIGH SENSITIVITY TROPONIN, S ERIAL, SECOND TESTon 01-21-2025 2H TROPONIN HS (SERIAL 2ND TROPONIN) 4 ng/L Normal <=35 [facility] Comment on above: Result Comment: 2h t roponin (2nd troponin) samples collected between 1h 40 min and 2h and 20 min of the baseline collection time can be utilized to interpret delta [facility]ins [facility]. Samples collected outside this timeframe need to be interpreted clinically. Rising or falling troponin delta below 2 ng/L as compared to baseline value suggests that acute cardiac injury is unlikely. Performed By: #### L [id number] ####Freezer Unloader: NURY DORADO ([id number])[facility] [place] [address] Laboratory - Chemistry and C hemistry - challengeon 01-21-2025 TSH Qn 0.94 m[IU]/L [facility] Magnesium [Mass/Vol] 1.9 mg/dL 1.6 - 2 .6 mg/dL [facility] MAGNESIUMon 01-21-2025 Magnesium [Mass/Vol] 1.9 mg/dL Normal 1.6-2.6 [facility] Comment on above: Result Comment: TAY R COMMENTS: Higher values can be expected in females during menses. Performed By: #### L [id number], [id number], [id number], LAB15 ####Freezer Unloader: NURY DORADO ([id number])[facility] [place] [address] Magnesium [Mass/Vol]on 01-21 Interpretation and review of laboratory results Normal [facility] Higher values can be expected in females during menses. [facility] No Panel Informationon 01-21 2h Troponin HS (Serial 2nd Troponin) 4 ng/L NINF - 35 ng/L [facility] Comment on above: 2h troponin (2nd tro ponin) samples collected between 1h 40 min and 2h and 20 min of the baseline collection time can be utilized to interpret delta troponins as per [facility] algorithms. Samples collected outside this timeframe need to be interpreted clinically. Rising or falling troponin delta below 2 ng/L as compared to baseline value suggests that acute cardiac injury is unlikely. Interpretation and review of laboratory results Normal [facility] Interpretation and review of laboratory results Normal [facility] Troponin HS Serial Baseline 4 ng/L NINF - 35 ng/L [facility] Comment on above: In individuals prese nting with symptoms > 2h, a baseline troponin <= 5 ng/L suggests acute cardiac injury is unlikely and further serial testing is generally not indicated. [facility] P [place]iet[place] 60 degrees [facility] MI Interval 154 ms [facility] QRS [place] 45 degrees [facility] QRSD Interval 92 ms [facility] QT Interval 349 ms [facility] QTC Interval 420 ms [facility] T Wave [place] 62 degrees [facility] Sinus rhythm Supraventricular bigeminy Electronically Signed On 01-21-2025 18:56:53 EDT by Vani Muñiz CV Vani Barriga MD - 01/21/2025 IMPRESSION: Sinus rhythm Supraventricular bigeminy Electronically Signed On 01-21-2025 18:56:53 EDT by Vani Muñiz [facility] THYROID STIMULATING HORMONEo n 01-21-2025 THYROID STIMULATING HORMONE 0.94 uIU/mL Normal 0.35-4.94 [facility] Comment on above: Performed By: #### L [id number], [id number], [id number], LAB15 ####Freezer Unloader: NURY DORADO ([id number])[facility] ([facility])[address] [place] [address] TSH Qnon 01-21-2025 Interpretation and review of laboratory results Normal [facility] Urinalysis complete panel (U )Ordered By: Colin Alonso on 01-21-2025 Bacteria LM.HPF (Urine sed) [#/Area] Few Abnormal Negative /HPF [facility] Bilirubin Ql (U) Negative Negative mg/dL [facility] Clarity (U) Clear Clear [facility] Color (U) Dark Yellow Abnormal Lt. Yellow [facility] Epithelial cells.squamous LM.HPF (Urine sed) [#/Area] Negative [facility] Glucose Ql (U) Normal Normal (<70) mg/dL [facility] Hemoglobin Ql (U) 0.2 mg/dL Abnormal Negative [facility] Interpretation and review of laboratory results Abnormal [facility] Ketones (U) [Mass/Vol] Negative Negat jada mg/dL [facility] Leukocyte esterase Test strip Ql (U) 250 Abnormal Negative Joe/uL [facility] Mucus LM.HPF (Urine sed) [#/Area] Few Negative /LPF [facility] Nitrite Ql (U) Negative Negative [facility] pH (U) 7.0 [pH] 5.0 - 8.0 pH [facility] Protein (U) [Mass/Vol] Negative Negat jada mg/dL [facility] RBC LM.HPF (Urine sed) [#/Area] 26-50 Abnormal [facility] Specific gravity (U) [Rel density] 1.023 1.005 - 1.030 [facility] Urobilinogen (U) [Mass/Vol] Normal Normal (0-1) mg/dL [facility] WBC LM.HPF (Urine sed) [#/Area] 6-10 Abnormal [facility] A specimen with <=10 WBC is not consistent with inflammation. This specimen will not reflex to a urine culture. [facility] Vital signson 01-21-2025 Heart rate 87 /min bpm [facility] XR Chest Single viewon 01-21 FINDINGS AND IMPRESS ION: SUPPORT DEVICES: None OSSEOUS STRUCTURES: Unremarkable. HEART AND MEDIASTINUM: The cardiomediastinal silhouette appears unchanged from the prior exam. LUNGS AND PLEURA: The lungs are clear. No sizable pleural effusion. Report Dictated on Electronically Signed By: Jani Estrada MD Electronically Signed Date/Time: 01/21/2025 6:57 PM EDT [facility] [place] [facility] 1960 [id number] Exam Date/Time: 01/21/2025 18:39 Procedure: XR CHEST 1 VIEW Ordering Provider: WHITT TRESA Reason For Exam: CHEST PAIN; Chest Pain CHEST CLINICAL INDICATION: Chest pain TECHNIQUE: AP portable chest COMPARISON: 05/17/2024 [facility] Jani Estrada MD - 01/21/2025 Patient Name: STEPHANE TORIBIO : 1960 Exam Date/Time: 01/21/2025 18:39 Procedure: XR CHEST 1 VIEW Ordering Provider: WHITT TRESA Reason For Exam: CHEST PAIN; Chest Pain CHEST CLINICAL INDICATION: Chest pain TECHNIQUE: AP portable chest COMPARISON: 05/17/2024 IMPRESSION: FINDINGS AND IMPRESSION: SUPPORT DEVICES: None OSSEOUS STRUCTURES: Unremarkable. HEART AND MEDIASTINUM: The cardiomediastinal silhouette appears unchanged from the prior exam. LUNGS AND PLEURA: The lungs are clear. No sizable pleural effusion. Report Dictated on Electronically Signed By: Jani Estrada MD Electronically Signed Date/Time: 01/21/2025 6:57 PM EDT [facility] [facility] Rad[facility] Study observation (narrative) [facility] XR Chest Single viewOrdered By: Jani Estrada on 01-21-2025 [facility] Work Phone: 36on 01-20-2025 36 Name of Caller: Antoine so Contact Reason for Appointment: Pt called to request an appointment with Dr Moseley for surgery. Please provide information for pt to schedule with Dr Moseley. Office Name: Urology Normal [facility] Gram Stainon 01-20-2025 GS List Antibiotics Las t 48 Hours? none List Antibiotics to be Started? none Gram Stain 1+ Red Blood Cells No White Blood Cells No Epithelial cells No organisms seen Normal [facility] Comment on above: Performed By: #### M 100.4001, M100.2000, M100.3000 #### [facility] [address] [place], [place], [address] Office Visiton 01-20-2025 Follow-up visit [id number] Antoine Toribio 1960 M Date Provider Department Center 01/20/2025 [id number] MARADIAGA [facility] URO None Family History Problem Relation Age of Onset Arthritis Mother Arthritis Father Hearing loss Father Family Status - Relation Status Age at Mother Alive Father Alive Level of Service:05761 [place] OFFICE/OUTPATIENT ESTABLISHED MOD MDM 30 MIN Reason for Visit and Comments: Other [0] - Follow up, ER Has mendoza catheter, some blood clots Bladders spasms with great discomfort Needs refills of antispasm medication Normal [facility] Progress Noteon 01-20-2025 Progress Note Reji fuentes MD 01/20/2025 at 11:46 AM OFFICE FOLLOW-UP VISIT PATIENT NAME: Stephane Toribio DATE OF : 1960 TODAY'S DATE: 01/20/2025 CHIEF COMPLAINT: Chief Complaint Patient presents with Other Follow up, ER Has mendoza catheter, some blood clots Bladders spasms with great discomfort Needs refills of antispasm medication Subjective: Mr. Toribio is a 64 y.o. male who presents to the office for follow up of retention. The patient has a markedly enlarged prostate and was having LUTS. He is on finasteride and tamsulosin, but has gone now into urinary retention. He was seen in [facility] ER on 01/17/2025 for catheter evaluation. He underwent cystoscopy and fulguration of prostatic bleeders by Dr. Hitesh Nava at [facility] [address] in [place] on 01/15/25 Review of Systems Past Medical History: Medical History[1] Past Surgical History: Surgical History[2] Allergies: Dust mite extract and Molds & smuts Social History: Issues identified in the H&P were noted Family History: Family History[3] Medications Prior to Admission medications Medication Sig Start Date End Date Taking? Authorizing Provider cephalexin (Keflex) 500 MG capsule 500 mg. 01/15/25 Yes Historical Provider, acetaminophen (Tylenol) 325 MG tablet Take 650 mg by mouth. Historical Provider, aspirin 81 MG EC tablet Take 81 mg by mouth in the morning. Historical Provider, b complex vitamins capsule Take 1 capsule by mouth. Historical Provider, Bacillus Coagulans-Inulin (Probiotic) 1-250 BILLION-MG capsule Take by mouth. Historical Provider, cholecalciferol (Vitamin D-3) 50 MCG (2000 UT) capsule Take 5,000 Units by mouth. Historical Provider, esomeprazole (NexIUM) [address] capsule Take 40 mg by mouth. Historical Provider, finasteride (Proscar) 5 MG tablet Take 1 tablet (5 mg) by mouth daily. 01/02/25 04/02/25 Reji Maradiaga MD HYDROcodone-acetaminophen (Monette) 5-325 MG tablet Take 1 tablet by mouth every 6 hours as needed for severe pain (7-10) for up to 3 days. 01/17/25 01/20/25 Verena Hidalgo PA-C lisinopril 20 MG tablet Take 20 mg by mouth. Historical Provider, loratadine (Claritin) 10 MG tablet Take 10 mg by mouth daily. Historical Provider, melatonin 5 MG tablet Take 5 mg by mouth. Historical Provider, [facility] Natural Products (Prostate Health) capsule Take by mouth. Historical Provider, montelukast (Singulair) 10 MG tablet Take 10 mg by mouth Nightly. Historical Provider, Multiple Vitamin (Multi-Vitamin) tablet Take 1 tablet by mouth in the morning. Historical Provider, naproxen (Naprosyn) 500 MG tablet Take 500 mg by mouth every 12 hours as needed. With food or milk Historical Provider, omega-3 (Fish Oil) 1200 MG capsule Take 1,200 mg by mouth. Historical Provider, omega-3 acid ethyl esters (Lovaza) 1 g capsule 2 tablets Every 24 hours. Historical Provider, phenazopyridine (Pyridium) 200 MG tablet Take 1 tablet (200 mg) by mouth 3 times daily for 2 days. 01/17/25 01/19/25 Verena Hidalgo PA-C Probiotic Product (Probiotic Blend) capsule Every 24 hours. Historical Provider, sildenafil (Viagra) 100 MG tablet take 1/2 to 1 tablet by mouth once daily if needed 04/17/22 Historical Provider, solifenacin (VESIcare) 10 MG tablet Take 1 tablet (10 mg) by mouth daily. Swallow tablet whole; do not crush, chew, or split. 01/20/25 02/19/25 Reji Maradiaga MD solifenacin (VESIcare) 5 MG tablet Take 1 tablet (5 mg) by mouth daily. Swallow tablet whole; do not crush, chew, or split. 01/17/25 07/16/25 Katty Vee APRN - [employer]IST[employer] tamsulosin (Flomax) 0.4 MG 24 hr capsule 2 capsules Every 24 hours. 02/13/24 Historical Provider, tamsulosin (Flomax) 0.4 MG 24 hr capsule Take 1 capsule (0.4 mg) by mouth 2 times daily. Take 30 minutes after a meal. 01/02/25 04/02/25 Reji Maradiaga MD Vitals: BP 130/66 (BP Location: Right arm, Patient Position: Sitting, BP Cuff Size: Adult long) Pulse 76 Physical Exam Physical Exam Constitutional: Appearance: Normal appearance. HENT: Head: Normocephalic and atraumatic. Eyes: Extraocular Movements: Extraocular movements intact. Pulmonary: Effort: Pulmonary effort is normal. Genitourinary: Comments: 24 Khmer three-way Mendoza in place with third port capped Musculoskeletal: General: Normal range of motion. Cervical back: Normal range of motion. Neurological: General: No focal deficit present. Mental Status: He is alert and oriented to person, place, and time. Psychiatric: Mood and Affect: Mood normal. Behavior: Behavior normal. Thought Content: Thought content normal. Judgment: Judgment normal. LABS: 01/02/2025: PSA: 9.530 04/18/2024: PSA: 10.300 12/18/2023: PSA: 5.480 10/09/2023: PSA: 8.670 ([place]) 04/20/2023: PSA: 7.200 w/ 31% free ([place]) 11/28/2022: PSA: 7.440 10/31/2022: PSA: 6.670 05/02/2022: PSA: 4.588 10/24/2021: PSA: 4.256 09/20/2019 (more content not included)... Normal [facility] Anaerobic cultureOrdered By: Yola Sepulveda on 01-19-2025 Bacteria identified Anaer cx Nom (Unsp spec) No growth in 5 days. [facility] Coding Summaryon 01-19-2025 Coding Summary HTMLBase 64 LamqykreJGx2yOk+PGhlYWQ+PE 8YRRWaX58hjREqrY6rY0UDNVaO TupcYNQJJLaMRxKylbWsSQ5zmO NjZXJu IC8+JK8nBMCfCcwecZLgj2E4tX D1S65ddr6hUArbgNH0JUFjEwEc yrglo4ygyJf8TQsxBavyRfYy EXGhkU20NVU7oU31Of91qOIcdN Hvn5bpzTs9ThObXLTqVNY1fCkz IJapj6AfPFObN06bcKNsf7H5 IHWimSiexWZfLbBdsFE8yS1sRW fckovew6rnyxxaOeg1rh27tERv p8V1wDW6F8KtwtM5ICIegPJb LkourRUQdD0xjortb9aqkrvxUe NaFRZoGCg1CYp8XBSbgWlmRhYh DG07DYM6MRKxrxDjR5RcCEBe zJocDcC8q3Z2Ok6IN9QOAnllC4 VNTUFSWTwvdGQ+XM76wp48K7Wf JiakYem1FDPaNUJ4lRE5qX4k EBYcLOdsp0E0uVW1E7IxooSocd 2yc6ieLZDuVHjaE23jgFMkd5N1 PGWlfVY3JZOheBdvPbMpwF30 Oyc+PJFghZexf6MmXyoof5vot9 kwhWl1XcgdHVKbyvPkgOgnDQN9 e5PvUp9nRLJdsNH7pRB7kD4d CpVoWjZ3WKflM018KmZoyCUzIw owN28vK2SyxIR+RRSgTdj2CBXm lZoqVM0sK9NrWLCgdwpbjEVh pZdhGA5xXZSddbgqTIXigC8zOE QlN0h2VoTmVeL4NDjkL6TtNUGn fypcTy14yR8mUfQaQuQ6WVpy L4WbnpO2TOPqkCLkCQbvXIS1C5 0we8O2PFBtJUFjEXB6zSR6aW8h bGlnbjogbGVmdDsgdmVydGlj ZErqIXviO189URCtuYpnEwKkHX luZyBEYXRlOiAgMTAvMDkvMjAy NTwvdGQ+CQMcPGW2eYalXLSk kPOxAPwaBe0gcQjlnCxgVM2kDI DnhhnoQJLpzQ8oBNMgjFDhhDvw UI1jUUZjbcigf011CcRlBHG0 BJVerEAjX3JerD8tVaRoJPOeEW QpM1GzbFVtAOleV116NHovPkB4 KOImluBgH8BeHOMhnBtcLoB5 e4G9Rk6Hd3UrtkioW3MhyFOuNb IsJbqaGJq1C7IhDaveuBG+PC90 YLKjHA71FKc2SXM5wLuzMYfv GXEpL2MpzN7nPgCnQZKmDUYeSj c+PHRhYmxlIHdpZHRoPScxMDAl QmQbtSilVH1eFm4hLBHtHENl fEqzzUJmXjKjl6fjWKWqWRezQV 6bdQskC8NgyPK6LAJdl1u6To93 C15jT4DbnMV+UPLieUU2wRS7 uF5bYrHfKwN7AHhhZ763NsBvdU BsFrcnk6cmv2xfhKw0KvQ5DZSj jdRjvMihWEN6l0XzKd10L07b IHdpZHRoPSIxNSUiIHZhbGlnbj 1ttY6tLw1+EICdcUA8lPU5rJ4a BlRwDqL8ASqyJ012XtKrjCAh Ezkdr2xuu8nwqDv7PkNqTBEahj OkyKjjTKW7q4UhRj87T0JkkBfv p3VuXwh2pf31fJCjc5A0pWX6 M9TaFJKqxepziJNvwCmbLR7cQR EwwdzpRHTuzK5iFJSjZ5r4DdLs ZaM5WSmeX2TokbY9ZJSxfIJt ANXhzOCQzF3pdspxp7urwvtfQn DkCEHxTYh7FOo3WOCyvSsdLuXs WNJ1MhA7JGI1eWXkgF2szCns djmowH7wMfa+IGN6kACguVMRSB 1lOjwvdGQ+GIPzJFW8yJgsSJki AUPwjO3hVDPsJ4m3SsZgVtQ7 TIguZ5YzrrU7AVYayVJsHEQozC EOtT9qoviii6uyvwbyLfXdSULp VHx6PIt9GQTyyKmkVrSgNEU5 SaG4OTY8cZCuaZ4buRqkegmldV 9wOyc+MlskrOxpUXV5RTi9Z0Qm Mcg5TKJkxFjhZY9cnXAwZVpx Hd8dwCfzhQniVR5nRAQbhfzfr6 99XbQhd5pkMYRbwVYuCLeeEZT0 G08an7S0DTPbGYVdZSC8sUO1 iH5cuMihuukdxFTiaDrxwkPwbU qkLBjiLLosN726DYBvjChzLtYb GRa9F9FeTtn3KYTzkSugFJ8w nGIpXBwiXy1vgBhejFgaLV6gVH Kmwwibf411MmGpi0vjIQKckZOm PFbjWCI2R47rb0Q1YBEkZANl TMT0kQH8dC8goElzmredrYGkaG hymtPanUsqVStbXJjrY939SEIf nWdbSsDodSg5E4LnYal7SHDi zGnlWP0ibWMeNSzlUv1qmColeM xzHD1pSKIjyjlws115LbZmk1sg RWNjpCFoFWzgHWS8D09aw3Q3 NIDdKVXlSDO3dYQ6aR1xbUkckd ogbGVmdDsgdmVydGljYWwtYWxp P432OSKchJzhPmHhqGleqmJz UEevSDm0Z0AnFrlmuYT+PC90YW UaYL02qOJyjMXpy0pgxLw6IhKf GUVyGWI8vRcmTXepl7MmXBRf F25ryOVcx2V0HAHnfWyrzQTjFs HxlAV6oC5yKHlskvqtc4amjxzc Cgekx9dchx82xF87E08nKHtm CHJsQLZjTHAtNMJreFswgi4cbQ 9wIi8+JRDbcAA0tDP5hH9mATSe AfJ5MJhdI714BnArvLKuPxlq a9fha2jpaVn8OoB2DGGulyIwfE lxPGV7x9YxXt78R44qJLncRUNu USCpRXXhKBCqoOqise9kwK2b Ii8+PXOmrHD6tWS7tC7zShGnIb X2XNecH192CqTyePVjCkisI68w M4TdrRT+EXGcNxr3EUCxzKal SN1ngKXuGWzcMh8zTFU0KcFqWm PeQLqsR1UxWOTpkjmjayfuwET7 WUKdKJHjjR12Dx7btNngGSSi kVQYmX7vkcwop3dmaykrKsIyHM VyHJe5OKi9ZVVdkQrfUoXrTRX2 SzK9PPZ7xPFxkB0raQycxmkn sT4yZ0HaYMNuyokyWy39gV8uIn TsPlX6QUgpQkr+T3mJGXPRZDGA JA6IKVlwYr4ESCIDAJ84GM25 zMTon8B8eQB0R3WaALUftrflmq mekGR7CHZvDTKbiF11vPYrMLwc Uq1to0Q7y115DOXuRNLxbS68 Cq6zsZalGNOttNXRsB2znsuur8 thocbuCgWhBPJcTAr5GBz4UOVs eOitGlMxKQM6EwE2QDE7aAMh kZ3hvUmtbfrrqN7hHpp+MDcvMD MaYCt3TYhhqWI+DQKwYNC4yIbr SIjyDCDqaG2hUYAxP4u6WkJe YzR6RHhvX8LcPZMznanpMx15aG 8zCyCfCsK6EOyuD7FrqfW4ZATa tLGbSKrvMCU0W26nl2S8EKGa EKKeHHT5mQD0sU5dfNnjhdjahR AhyKrneuSruQpwMOseMIbdD581 DIIeqCcwCvW9XMppKQTeXW61 WT47pNTov1T7pRM3F4AvEZCdtd ulkagguLI7BXKcMYTqnE28aBYh DCwdSt6in3M8o918JNNkDGLu wX70Fk7kzFfsGOZkaJBZzZ1vet fof8uxuhxzCcRcDBFcCUn4XPu0 OMYleUgcDbVsWCP7WlE8ZFX9 dOCcwU3xwVaphczpaU0rOsv+TU FMRTwvdGQ+WEQuKKK5cVhnDNbi RXYnzK6nFZIzP4a7JqUxAkG1 ARtlI2TqUIVdzipeHo10eD8bRf LoLwD0JQdpA0JwnfH5AQKtjFMv RCypDUY1Y75oh0S9GJVdILIj LBK6wCV3pW2ozCgyxlqpyEVjbA bevtLfrPuhUWvnTYwdN486OPGa kUkrXnBbEPNlCV8zqHgakRZ+ AR35lo06I7KiQvexEya1VJUxNB Z4bDD1xF2pPZNaDVhzv4A9pLC5 R6FdheCybe6ks6elWAVyXGmp K18fyLDuy6U6AOOwbNP3UHDiiO yxRrAljX82Dlt+LVRagQrds3Cl Pfvxn8upk5xwxPv6CgWkEJXq yuFhdMwbIJH0s5IgTl64R04yDK dzIXZfIBQkITOsYHSkiHaiqq2h uK0pFk3+HSBhmGE1zWX4wG5o YtAaOaE0APixV735CaDygGYkTf bvu4dzk2nwgXr5SnZeWGRvrpLw fOnwDRR8e6BiJs14Q5WtuRji r4CfYor3ja19rYUvc5W8qQZ3Q0 JePAOdqjdosWBktNiqMH5jPADy xexoPPRilC5bXYSpY9k4XiSe SyV5UXpuX4QtxkZ0APRhyTMvSY ExhGJRiU9bobszp7psnkbwLaEr ZGAsAGk4QIc8GXSinCkwUyCu ADN0SdL7GSP8lYDejC5cnXafge ufcK0lPpw+RAg0t1edsGMfSU2j mGV4XD04II37pDNid1V5oHF7 Z6HeBSMooywpxlmabBO7XFPzJM HaiW81Uz3ecUrzRz3tSBGkEOM2 PHVemKHcL2QaeJ6tYmRzVLTp INAtP3DbeJFtAYloK232EFpvDf V4XISrzsFvU5WhUBBztWqaBaV8 z2I3Fg8EWL23OS71UF00tDMu t5U3jFE5P3ZcQGKnpzqgpuodtT P7YLSnPOXrqX37Ln0etQmcDt4k BBAsYME0JCPatQElF4BdnD9o KzUwMOQfUWFoV3UtmYJxAOukP2 40IRcyFnR4FMZxouWrO1XcMNOk hMieGbL6g3Y7Iu3KYh52IF72 RR76kIBwr9F6vVE6B0ZfCMDqyu cxzqwitST0GLFzPPIpwU02Oz0n aVzxTy0iUYRpQAX0BZQifVYd G2GatJ1xXrIgGRYpUCZiJ1CyjP IpYQvuT899EFeeYlV2ETXbguAm U3QyDQSwfFkuHjF6w1W9Wi2S CEnoudt9R9ZrZjjyjVT+PC90YW QaZC81mDZcaSXyd2dusRy6VkPn LMQgNAA6gFnaAEglj4CcMYCo Y29 (more content not included)... Normal [facility] Gram stainOrdered By: Aidan Sepulveda on 01-19-2025 Microscopic observation Gram stain Nom (Unsp spec) [facility] Routine wound cultureOrdered By: Yola Sepulveda on 01-19-2025 Microbial culture, routine Brevundimonas diminuta/vesicul Abnormal [facility] 36on 01-17-2025 36 I sent in some vesic are. I would recommend stopping the levsin while taking the vesicare. I didn't see this medication on his med list. Normal [facility] 36 Given this new situa tion, I think that the best course of action would be for the patient to be seen by Dr. Powell or Dr. Moseley to discuss robotic suprapubic prostatectomy [facility] 36 Pt is taking levsin for spasms and is not really helping . Can the antispasmodic be changed ? [facility] BASIC METABOLIC PANELon 10-0 Anion gap [Moles/Vol] 10 mmol/L Normal 3-13 [facility] Comment on above: Performed By: #### L AB15 ####Freezer Unloader: NURY DORADO ([id number])[facility] ([facility])[address] [place] [address] Calcium [Mass/Vol] 9.3 mg/dL Normal 8.8-10.0 [facility] Comment on above: Performed By: #### L AB15 ####Freezer Unloader: NURY DORADO ([id number])[facility] ([facility])[address] [place] [address] Chloride [Moles/Vol] 106 mmol/L Normal 98-107 [facility] Comment on above: Performed By: #### L AB15 ####Freezer Unloader: NURY DORADO ([id number])[facility] ([facility])[address] [place] [address] CO2 [Moles/Vol] 23 mmol/L Normal 23-31 [facility] Comment on above: Performed By: #### L AB15 ####Freezer Unloader: NURY DORADO ([id number])[facility] ([facility])[address] [place] [address] Creatinine [Mass/Vol] 1.28 mg/dL High 0.72-1.25 [facility] Comment on above: Performed By: #### L AB15 ####Freezer Unloader: NURY DORADO ([id number])[facility])[address] [place] [address] GLOMERULAR FILTRATION RATE ML/MIN/1.73 SQ M.PREDICTED 62.1 mL/min/1.73m*2 Normal >60.0 [facility] Comment on above: Result Comment: Calc ulation based on the Chronic Kidney Disease Epidemiology Collaboration (CKD-EPI) equation refit without adjustment for race Performed By: #### L AB15 ####Freezer Unloader: NURY DORADO ([id number])[facility] ([facility])[address] [place] [address] [place] Glucose [Mass/Vol] 111 mg/dL Normal 82-115 [facility] Comment on above: Performed By: #### L AB15 ####Freezer Unloader: NURY DORADO ([id number])[facility])[address] [place] [address] Potassium [Moles/Vol] 4.3 mmol/L Normal 3.5-5.1 [facility] Comment on above: Result Comment: [facility] potassium values may be up to 0.5 mmol/L lower than serum values. Performed By: #### L AB15 ####Freezer Unloader: NURY DORADO ([id number])[facility] ([facility])[address] [place] [address] Sodium [Moles/Vol] 139 mmol/L Normal 136-145 [facility] Comment on above: Performed By: #### L AB15 ####Freezer Unloader: NURY DORADO ([id number])[facility] ([facility])[address] [place] [address] Urea nitrogen [Mass/Vol] 17 mg/dL Normal 9-23 [facility] Comment on above: Performed By: #### L AB15 ####Freezer Unloader: NURY DORADO ([id number])[facility])[address] [place] [address] Basic metabolic 1998 panelon 01-17-2025 Anion gap [Moles/Vol] 10 mmol/L 3 - 13 mmol/L [facility] Calcium [Mass/Vol] 9.3 mg/dL 8.8 - 10. 0 mg/dL [facility] Chloride [Moles/Vol] 106 mmol/L 98 - 10 7 mmol/L [facility] CO2 [Moles/Vol] 23 mmol/L 23 - 31 mmol/L [facility] Creatinine [Mass/Vol] 1.28 mg/dL High 0.72 - 1.25 mg/dL [facility] GFR/1.73 sq M.predicted (S/P/Bld) [Vol rate/Area] 62.1 mL/min - PINF [facility] Comment on above: Calculation based on the Chronic Kidney Disease Epidemiology Collaboration (CKD-EPI) equation refit without adjustment for race Glucose [Mass/Vol] 111 mg/dL 82 - 115 mg/dL [facility] Interpretation and review of laboratory results Abnormal [facility] Potassium [Moles/Vol] 4.3 mmol/L 3.5 - 5.1 mmol/L [facility] Comment on above: Plasma potassium luz marina ues may be up to 0.5 mmol/L lower than serum values. Sodium [Moles/Vol] 139 mmol/L 136 - 145 mmol/L [facility] Urea nitrogen [Mass/Vol] 17 mg/dL 9 - 23 mg/dL [facility] CBC W Auto Differential pane l (Bld)on 01-17-2025 Basophils (Bld) [#/Vol] 0 10*3/uL 0.0 - 0.2 10*3/uL [facility] Basophils/100 WBC (Bld) 0.4 % 0.0 - 2.0 % [facility] Eosinophils (Bld) [#/Vol] 0.1 10*3/uL 0.0 - 0.5 10*3/uL [facility] Eosinophils/100 WBC (Bld) 0.6 % 0.0 - 6.0 % [facility] Erythrocyte distribution width (RBC) [Ratio] 12.2 % 11.5 - 15.0 % [facility] Hematocrit (Bld) [Volume fraction] 38 % Low 40.0 - 52.0 % [facility] Hemoglobin (Bld) [Mass/Vol] 12.8 g/dL Low 13.0 - 18.0 g/dL [facility] Immature granulocytes (Bld) [#/Vol] 0.1 10*3/uL High NINF - 0.1 10*3/uL [facility] Immature granulocytes/100 WBC (Bld) 1 % 0.0 - 2.0 % [facility] Interpretation and review of laboratory results Abnormal [facility] Lymphocytes (Bld) [#/Vol] 1.6 10*3/uL 1.0 - 4.3 10*3/uL [facility] Lymphocytes/100 WBC (Bld) 18.9 % 15.0 - 45.0 % [facility] MCH (RBC) [Entitic mass] 29.7 pg 26.0 - 34.0 pg [facility] MCHC (RBC) [Mass/Vol] 33.7 % 30.5 - 36.0 % [facility] MCV (RBC) [Entitic vol] 88.2 fL 77.0 - 99.0 fL [facility] Monocytes (Bld) [#/Vol] 0.8 10*3/uL 0.0 - 0.9 10*3/uL [facility] Monocytes/100 WBC (Bld) 10 % 5.0 - 13.0 % [facility] Neutrophils (Bld) [#/Vol] 5.8 10*3/uL 1.8 - 7.5 10*3/uL [facility] Neutrophils/100 WBC (Bld) 69.1 % 38.0 - 82.0 % [facility] Nucleated RBC/100 WBC (Bld) [Ratio] 0 % [facility] Platelet mean volume (Bld) [Entitic vol] 9.3 fL 9.0 - 12.7 fL [facility] Platelets (Bld) [#/Vol] 170 10*3/uL 140 - 440 10*3/uL [facility] RBC (Bld) [#/Vol] 4.31 10*6/uL Low 4.40 - 5.90 10*6/uL [facility] WBC (Bld) [#/Vol] 8.4 10*3/uL 3.6 - 10.7 10*3/uL [facility] CBC WITH AUTO DIFFERENTIALon 01-17-2025 Basophils (Bld) [#/Vol] 0.0 10*3/uL Normal 0.0-0.2 [facility] Comment on above: Performed By: #### L [id number] ####Freezer Unloader: NURY [id number])[address] Basophils/100 WBC (Bld) 0.4 % Normal 0.0-2.0 [facility] Comment on above: Performed By: #### L [id number] ####Freezer Unloader: NURY [id number])[address] Eosinophils (Bld) [#/Vol] 0.1 10*3/uL Normal 0.0-0.5 [facility] Comment on above: Performed By: #### L [id number] ####Freezer Unloader: NURY [id number])[facility])[address] [place] [address] Eosinophils/100 WBC (Bld) 0.6 % Normal 0.0-6.0 [facility] Comment on above: Performed By: #### L [id number] ####Freezer Unloader: NURY DORADO ([id number])[facility])[address] [place] [address] Erythrocyte distribution width (RBC) [Ratio] 12.2 % Normal 11.5-15.0 [facility] Comment on above: Performed By: #### L [id number] ####Freezer Unloader: NURY DORADO ([id number])[facility])[address] [place] [address] Hematocrit (Bld) [Volume fraction] 38.0 % Low 40.0-52.0 [facility] Comment on above: Performed By: #### L [id number] ####Freezer Unloader: NURY DORADO ([id number])[facility])[address] [place] [address] Hemoglobin (Bld) [Mass/Vol] 12.8 g/dL Low 13.0-18.0 [facility] Comment on above: Performed By: #### L [id number] ####Freezer Unloader: NURY DORADO ([id number])[facility])[address] [place] [address] IMMATURE GRANS % 1.0 % Normal 0.0-2.0 [facility] Comment on above: Performed By: #### L [id number] ####Freezer Unloader: NURY DORADO ([id number])[facility])[address] [place] [address] IMMATURE GRANS ABSOLUTE 0.1 10*3/uL High <0.1 [facility] Comment on above: Performed By: #### L [id number] ####Freezer Unloader: NURY DORADO ([id number])[facility])[address] [place] [address] [place] Lymphocytes (Bld) [#/Vol] 1.6 10*3/uL Normal 1.0-4.3 [facility] Comment on above: Performed By: #### L [id number] ####Freezer Unloader: NURY DORADO ([id number])[facility])[address] [place] [address] Lymphocytes/100 WBC (Bld) 18.9 % Normal 15.0-45.0 [facility] Comment on above: Performed By: #### L [id number] ####Freezer Unloader: NURY DORADO ([id number])[facility])[address] [place] [address] MCH (RBC) [Entitic mass] 29.7 pg Normal 26.0-34.0 [facility] Comment on above: Performed By: #### L [id number] ####Freezer Unloader: NURY DORADO ([id number])[facility])[address] [place] [address] MCHC 33.7 % Normal 30.5-36.0 [facility] Comment on above: Performed By: #### L [id number] ####Freezer Unloader: NURY DORADO ([id number])[facility])[address] [place] [address] MCV (RBC) [Entitic vol] 88.2 fL Normal 77.0-99.0 [facility] Comment on above: Performed By: #### L [id number] ####Freezer Unloader: NURY DORADO ([id number])[facility])[address] [place] [address] Monocytes (Bld) [#/Vol] 0.8 10*3/uL Normal 0.0-0.9 [facility] Comment on above: Performed By: #### L [id number] ####Freezer Unloader: NURY DORADO ([id number])[facility])[address] [place] [address] Monocytes/100 WBC (Bld) 10.0 % Normal 5.0-13.0 S [facility] Comment on above: Performed By: #### L [id number] ####Freezer Unloader: NURY DORADO ([id number])[facility] ([facility])[address] [place] [address] NEUTROPHILS ABSOLUTE 5.8 10*3/uL Normal 1.8-7.5 [facility] Comment on above: Performed By: #### L [id number] ####Freezer Unloader: NURY DORADO ([id number])[facility] ([facility])[address] [place] [address] Neutrophils/100 WBC (Bld) 69.1 % Normal 38.0-82.0 [facility] Comment on above: Performed By: #### L [id number] ####Freezer Unloader: NURY DORADO ([id number])[facility])[address] [place] [address] NRBC 0.0 /100 WBCs Normal 0.0-2.0 [facility] Comment on above: Performed By: #### L [id number] ####Freezer Unloader: NURY DORADO ([id number])[facility] ([facility])[address] [place] [address] Platelet mean volume (Bld) [Entitic vol] 9.3 fL Normal 9.0-12.7 [facility] Comment on above: Performed By: #### L [id number] ####Freezer Unloader: NURY DORADO ([id number])[facility])[address] [place] [address] [place] Platelets (Bld) [#/Vol] 170 10*3/uL Normal 140-440 [facility] Comment on above: Performed By: #### L [id number] ####Freezer Unloader: NURY DORADO ([id number])[facility])[address] [place] [address] RBC (Bld) [#/Vol] 4.31 10*6/uL Low 4.40-5.90 [facility] Comment on above: Performed By: #### L [id number] ####Freezer Unloader: NURY DORADO ([id number])[facility] ([facility])[address] [place] [address] WBC (Bld) [#/Vol] 8.4 10*3/uL Normal 3.6-10.7 [facility] Comment on above: Performed By: #### L [id number] ####Freezer Unloader: NURY DORADO ([id number])[facility] ([facility])[address] [place] [address] Consulton 01-17-2025 Consult ------ -- Attestation signed by Flor Barfield DO at 01/17/2025 6:09 PM Attending Physician's Attestation Date of assessment: 01/17/25 I have reviewed and discussed the patient and agree with the assessment and plan. Catheter draining yellow urine Having bladder spasms, known large prostate Plan outpatient follow up as previously discussed Ok for tn home Please do not hesitate to reach out to the urology team with additional questions or concerns On-Call Finder --> [facility] Urology Page on-call resident(s) first Flor Barfield DO [facility] Urology -- Urology Inpatient Consultation 01/17/2025 HISTORY OF PRESENT ILLNESS: The patient is a 64 y.o.male who presented to [facility] ED. Past medical history as listed below. Patient is known to our service Ashwini. Last seen 01/02 for incomplete bladder emptying and worsening LUTS. Per ED, patient was just out of town and had episode of urinary retention that required catheter placement, bladder irrigation and some form of embolization. Urology is consulted this admission for Gross hematuria and concern for catheter clotting off. Today, patient reports catheter spasms. Mendoza irrigated easily with return of clear yellow urine. Patient bladder scanned for 0cc. Patient and very frustrated with catheter. They have a urology appointment this Thursday. Passed a large clot today and sometimes when he sits up the mendoza does not drain well. When he lays down it does drain well. Urologic history: - Elevated PSA, P Bx 2022: Benign - Seeing Dr Maradiaga for worsening LUTS Hospital/ED workup: Cr 1.28 (ABL ); WBC 8.4; HGB 12.8; No UA. bASA. 22Fr mendoza. PAST MEDICAL HISTORY: Medical History[1] PAST SURGICAL HISTORY: Surgical History[2] ALLERGIES: Allergies[3] CURRENT MEDICATIONS: Current Medications[4] FAMILY HISTORY: Family History[5] Social History: Social History Socioeconomic History Marital status: Spouse name: Not on file Number of children: Not on file Years of education: Not on file Highest education level: Not on file Occupational History Not on file Tobacco Use Smoking status: Former Current packs/day: 0.00 Types: Cigarettes Quit date: 04/13/1980 Years since quittin.7 Smokeless tobacco: Never Vaping Use Vaping status: Never Used Substance and Sexual Activity Alcohol use: Yes Alcohol/week: 7.0 standard drinks of alcohol Types: 5 Cans of beer per week Drug use: Never Sexual activity: Yes Partners: Female control/protection: Other Comment: Histarectomy Other Topics Concern Not on file Social History Narrative Not on file Social Drivers of Health Financial Resource Strain: Not on file Food Insecurity: Not on file Transportation Needs: Not on file Physical Activity: Not on file Stress: Not on file Social Connections: Not on file Intimate Partner Violence: Not on file Housing Stability: Not on file ROS: See HPI PHYSICAL EXAM: VITALS: BP 128/71 Pulse 66 Temp 36.3 ?C (97.4 ?F) (Temporal) Resp 16 SpO2 98% General: Alert, in no acute distress Respiratory: no respiratory distress, normal effort Abdomen: soft, non distended, non tender : mendoza draining clear, yellow urine DATA: LABS: BMP: Lab Results Component Value Date GLUCOSE 111 01/17/2025 CALCIUM 9.3 01/17/2025 NA 139 01/17/2025 K 4.3 01/17/2025 CO2 23 01/17/2025 CL 106 01/17/2025 BUN 17 01/17/2025 CREATININE 1.28 (H) 01/17/2025 CBC: Lab Results Component Value Date WBC 8.4 01/17/2025 HGB 12.8 (L) 01/17/2025 HCT 38.0 (L) 01/17/2025 MCV 88.2 01/17/2025 PLT 170 01/17/2025 Urinalysis: No results found for: UA Urine Culture: No components found for: UCX RADIOLOGY: Reviewed. IMPRESSION & PLAN: 64 y.o. male with catheter spasms, enlarged prostate - No acute intervention - recommend bladder spasms medications for homegoing - mendoza draining clear yellow urine and it is in position - to discuss Mri prostate as OP, given ongoing issues with retention may be candidate for suprapubic prostatectomy given large gland size. PSA prior to intervention as last value was 10 Jackie Ruiz MD PGY-3 Urology [1] Past Medical History: Diagnosis Date Benign prostatic hyperplasia 3 or 4 years ago Elevated PSA Late 2020 Erectile dysfunction Summer 2020 H/O exercise stress test Hypertension MACY on CPAP Osteomyelitis (HCC) RIGHT RING FINGER AND SCHEDULED FOR THE SURGERY ON 03/05/[address] [facility] [2] Past Surgical History: Procedure Laterality Date CHOLECYSTECTOMY [facility] COLONOSCOPY COLONOSCOPY FINGER AMPUTATION Right 03/05/2020 right small finger - urbano FINGER SURGERY Left [facility] FINGER SURGERY Left 02/20/2023 Mucous cyst excision long finger (more content not included)... Normal [facility] ECG 12-LEADon 01-17-2025 ECG 12-LEAD IMPRESSION: Sinus rhythm Supraventricular bigeminy Electronically Signed On 01-17-2025 19:49:22 EDT by Byron Yin Normal [facility] ED Nursing Noteon 01-17-2025 ED Nursing Note Emptied mendoza for 950ml. Normal [facility] ED Provider Noteon ED Provider Note Emergency Department Encounter [facility] EMERGENCY DEPT Patient: Stephane Toribio : 1960 Date of Evaluation: 01/17/2025 ED Provider: Byron Yin MD COMBINED TRIAGE NOTE & RAMON SUPERVISORY NOTE WITH SHARED ATTESTATION I independently examined and evaluated Stephane Toribio. I independently saw & evaluated the patient as the Clinician in Triage and performed a history and physical exam, established acuity, and ordered appropriate tests to develop a plan of care. Patient was subsequently seen by an RAMON and I assumed a shared supervisory role. I personally saw the patient and performed a substantive portion of the visit including all aspects of the Medical Decision Making. I managed the patient in a supervisory role and I personally saw the patient and made/approved the management plan and take responsibility for the patient management. Brief HPI: In brief, Stephane Toribio is a 64 y.o. male that presents for evaluation of urinary catheter problems. Patient has an indwelling Mendoza catheter he had what sounds like an a large prostate had an MRI that was suspicious for malignancy but not biopsied yet. He was out of town this past weekend and had significant bleeding in the catheter requiring hospitalization and cauterization at that time and he was discharged returning here. There has been discussion based on whether this is actually malignancy or not whether he will require suprapubic prostatectomy. He states he is having bladder spasms with large amounts of urine that will come out into the Mendoza catheter bag sometimes there is blood clot and at other times it is clear and it is coming out around the catheter itself.. Focused Physical exam: ABDOMEN: Bowel sounds present, soft, nontender, no guarding rebound or rigidity, no palpable masses or aneurysm. Catheter in place dark urine but not bloody clear urine in the tubing no distended bladder Plan/MDM: Will get a bladder scan labs urine and urology consult All diagnostic, treatment, and disposition decisions were made by myself in conjunction with the RAMON. For all further details of the patient's emergency department visit, please see the full medical record and documentation. Comment: Please note this report has been produced using speech recognition software and may contain errors related to that system including errors in grammar, punctuation, and spelling as well as words and phrases that may be inappropriate. If there are any questions or concerns please feel free to contact the dictating provider for clarification Byron Yin MD Acute Care [facility] Byron Yin MD 01/17/25 1334 [facility] ED Provider Note EMERGENCY DEPARTMENT ENCOUNTER Pt Name: Stephane Toribio Birthdate 1960 Date of evaluation: 01/17/2025 ED Provider: Verena Hidalgo PA-C CHIEF COMPLAINT Chief Complaint Patient presents with Urinary Catheter Problem Patient states he believes his mendoza catheter has a blockage. States decreased output since 0530hrs per patient. Patient stating he only has pain when he has a spasm. Patient alert/oriented x 4. GCS 15. No distress noted. No other complaints or concerns per patient. HISTORY OF PRESENT ILLNESS (Location/Symptom, Timing/Onset, Context/Setting, Quality, Duration, Modifying Factors, Severity) Note limiting factors. I wore appropriate PPE for the entirety of this encounter. HPI Stephane Toribio is a 64 y.o. male who presents to the emergency department with his for evaluation of concerns for possible Mendoza catheter malfunction. Patient has recently had abnormal imaging of his prostate as well as elevated PSAs as an outpatient. Follows with Dr. Maradiaga in our urology group. Was seen at a health care facility out of town this weekend and had to have a Mendoza catheter placed due to urinary retention. However was found to have significant hematuria with clots and was admitted to the hospital for CBI. While admitted had significant bleeding requiring cauterization of bleeding vessels around his prostate. Urologist there coordinated with his urologist, and plan was to stabilize him until he could be seen in outpatient follow-up by his urologist todiscuss need for prostate biopsy, over concerns for underlying malignancy, and patient may ultimately require suprapubic prostatectomy. He has not yet been in to see his urologist. Presents back to the emergency department today with his because he is having bladder spasms, and states that between episodes of spasms his Mendoza catheter is not draining. Has noticed that there is a bloody tinge to his urine but has not appreciated any clots. Does have clear drainage going into catheter tubing as well as around the catheter site itself. No fevers or chills. No associated abdominal or flank pain. No chest pain, palpitations, shortness of breath. Nursing Notes were reviewed. Limitations to history: None Outside historians: None REVIEW OF SYSTEMS Review of Systems 14 systems reviewed, positives and pertinent negatives as per HPI. All other systems were reviewed and are negative. PAST MEDICAL HISTORY Medical History[1] SURGICAL HISTORY Surgical History[2] CURRENT MEDICATIONS Discharge Medication List as of 01/17/2025 4:49 PM CONTINUE these medications which have NOT CHANGED Details acetaminophen (Tylenol) 325 MG tablet Take 650 mg by mouth., Historical Med aspirin 81 MG EC tablet Take 81 mg by mouth in the morning., Historical Med b complex vitamins capsule Take 1 capsule by mouth., Historical Med Bacillus Coagulans-Inulin (Probiotic) 1-250 BILLION-MG capsule Take by mouth., Historical Med cholecalciferol (Vitamin D-3) 50 MCG (1999) capsule Take 5,000 Units by mouth., Historical Med esomeprazole (NexIUM) [address] capsule Take 40 mg by mouth., Historical Med finasteride (Proscar) 5 MG tablet Take 1 tablet (5 mg) by mouth daily., Starting 01/02/2025, Until 04/02/2025, Normal lisinopril 20 MG tablet Take 20 mg by mouth., Historical Med loratadine (Claritin) 10 MG tablet Take 10 mg by mouth daily., Historical Med melatonin 5 MG tablet Take 5 mg by mouth., Historical Med Misc Natural Products (Prostate Health) capsule Take by mouth., Historical Med montelukast (Singulair) 10 MG tablet Take 10 mg by mouth Nightly., Historical Med Multiple Vitamin (Multi-Vitamin) tablet Take 1 tablet by mouth in the morning., Historical Med naproxen (Naprosyn) 500 MG tablet Take 500 mg by mouth every 12 hours as needed. With food or milk, Historical Med omega-3 (Fish Oil) 1200 MG capsule Take 1,200 mg by mouth., Historical Med omega-3 acid ethyl esters (Lovaza) 1 g capsule 2 tablets Every 24 hours., Historical Med Probiotic Product (Probiotic Blend) capsule Every 24 hours., Historical Med sildenafil (Viagra) 100 MG tablet take 1/2 to 1 tablet by mouth once daily if needed, Historical Med solifenacin (VESIcare) 5 MG tablet Take 1 tablet (5 mg) by mouth daily. Swallow tablet whole; do not crush, chew, or split., Starting 01/17/2025, Until 07/16/2025, Normal !! tamsulosin (Flomax) 0.4 MG 24 hr capsule 2 capsules Every 24 hours., Starting 02/13/2024, Historical Med !! tamsulosin (Flomax) 0.4 MG 24 hr capsule Take 1 capsule (0.4 mg) by mouth 2 times daily. Take 30 minutes after a meal., Starting 01/02/2025, Until 04/02/2025, Normal !! - Potential duplicate medications found. Please discuss with provider. ALLERGIES Dust mite extract FAMILY HISTORY Family History[3] SOCIAL HISTORY Social History[4] SCREENINGS PHYSICAL EXAM ED Triage Vitals Temp Heart Rate (more content not included)... Normal [facility] No Panel Informationon 01-17 P [place] 52 degrees [facility] MI Interval 157 ms [facility] QRS [place] 46 degrees [facility] QRSD Interval 98 ms [facility] QT Interval 388 ms [facility] QTC Interval 410 ms [facility] T Wave [place] 50 degrees [facility] Sinus rhythm Supraventricular bigeminy Electronically Signed On 01-17-2025 19:49:22 EDT by Byron Yin CV Byron Barth MD - 01/17/2025 IMPRESSION: Sinus rhythm Supraventricular bigeminy Electronically Signed On 01-17-2025 19:49:22 EDT by Byron Yin [facility] Vital signson 01-17-2025 Heart rate 67 /min bpm [facility] 36on 01-16-2025 36 Name of Caller: Melvin castro Contact Reason for Appointment: Annita jo Stephane was released from the hospital today to return home. Please call to schedule recommended biopsy or to advise. Office Name: Urology [facility] 36 Patient spouse camp d office to advise patient is currently admitted [facility]. Thursday he was unable to urinate. He went to the ED. They released him with a catheter. Thursday he went back to ED due to catheter being clogged with blood clots. Dr. Nava did a procedure to help stop the bleeding from the prostate. Patient remains on continuous bladder irrigation. Patient will possibly released to go home today or transferred to [facility]. Patient spouse will call office later today to advise. Patient would like to move forward with Biopsy as soon as possible. [facility] medical records should be faxed over from their office as well for Dr. Maradiaga. Normal [facility] Basic Metabolic Panelon 10-0 Creatinine Clr Calc Pharmacy 88.76 Normal [facility] Comment on above: Result Comment: PERF ORMED BY: [place] [address] PATHOLOGIST ELECTRICAL TEST ENGINEER LUC ACOSTA M.D. Performed By: #### C BC, BMP #### [address] GFR/1.73 sq M.predicted MDRD (S/P/Bld) [Vol rate/Area] mL/min/{1.73_m2} Normal [facility] Comment on above: Performed By: #### C BC, BMP #### [address] Basophils [#/volume] in Bloo d by Automated countOrdered By: Augusto Duque on 01-15-2025 Basophils (Bld) [#/Vol] 0.0 10*3/uL Normal 0.0-0.2 [facility] Comment on above: Result Comment: PERF ORMED BY: [place] [address] PATHOLOGIST ELECTRICAL TEST ENGINEER LUC ACOSTA M.D. Performed By: #### C BC, BMP #### [place] [address] [place] Basophils/100 leukocytes in Blood by Automated countOrdered By: Augusto Duque on 01-15-2025 Basophils/100 WBC (Bld) 0.4 % Normal . [facility] Comment on above: Performed By: #### C BC, BMP #### [place] [address] [place] Calcium [Mass/volume] in Ser um or PlasmaOrdered By: Augusto Duque on 01-15-2025 Calcium [Mass/Vol] 9.0 mg/dL Normal 8.6-10.3 [facility] Comment on above: Performed By: #### C BC, BMP #### [place] [address] [place] Carbon dioxide, total [Moles /volume] in Serum or PlasmaOrdered By: Augusto Duque on 01-15-2025 CO2 [Moles/Vol] 24.2 mmol/L Normal 21.0-31.0 [facility] Comment on above: Performed By: #### C BC, BMP #### [address] Chloride [Moles/volume] in S donta or PlasmaOrdered By: Augusto Duque on 01-15-2025 Chloride [Moles/Vol] 110 mmol/L High 98-107 [facility] Comment on above: Performed By: #### C BC, BMP #### [address] Complete Blood Count Auto Di ffon 01-15-2025 Mean Corpuscular HGB Conc 33.6 g/dL Normal 32.5-35.6 [facility] Comment on above: Performed By: #### C BC, BMP #### [address] NRBC% 0.1 /100{WBC} Normal 0-0.5 [facility] Comment on above: Performed By: #### C BC, BMP #### [address] White Blood Count 6.1 [CFU]/mL Normal 4.1-10.5 [facility] Comment on above: Performed By: #### C BC, BMP #### [address] Creatinine [Mass/volume] in Serum or PlasmaOrdered By: Augusto Duque on 01-15-2025 Creatinine [Mass/Vol] 1.19 mg/dL Normal 0.70-1.30 [facility] Comment on above: Performed By: #### C BC, BMP #### [address] ECG 12 lead ECGon 01-15-2025 ECG 12 lead ECG [facility] Main [place] [address] [place] [address] Electrocardiograph Report Signed Patient: Stephane Toribio MR#: [id number] : 1960 Acct:[id number] Age/Sex: 64 / M ADM Date: 01/14/25 Loc: Room: 3F9438-2 Type: ADM INOo Attending Dr: Augusto Duque MD Ordering Provider: Nic Wallace DO Date of Service: 01/15/2509/05/799 ECG/ECG 12 lead ECG: pre surgical Copies to: Test Reason : Blood Pressure : */* mmHG Vent. Rate : 59 BPM Atrial Rate : 59 BPM P-R Int : 176 ms QRS Dur : 88 ms QT Int : 386 ms P-R-T Axes : 64 34 31 degrees QTcB Int : 382 ms Sinus bradycardia Otherwise normal ECG No previous ECGs available Confirmed by Ravin Wilks ([id number]) on 01/15/2025 4:47:41 PM Referred By: Electronically Signed By: Ravin Wilks Transcribed By: MUS Signed By Ravin Wilks MD 01/15/25 1647 Normal [facility] Eosinophils [#/volume] in Bl ood by Automated countOrdered By: Augusto Duque on 01-15-2025 Eosinophils (Bld) [#/Vol] 0.1 10*3/uL Normal 0.0-0.45 [facility] Comment on above: Performed By: #### C JUAN CARLOS, BMP #### [place] [address] [place] Eosinophils/100 leukocytes i n Blood by Automated countOrdered By: Augusto Duque on 01-15-2025 Eosinophils/100 WBC (Bld) 1.1 % Normal . [facility] Comment on above: Performed By: #### C BC, BMP #### [facility] [address] [place] [address] [place] Erythrocyte distribution wid th [Ratio] by Automated countOrdered By: Augusto Duque on 01-15-2025 Erythrocyte distribution width (RBC) [Ratio] 12.7 % Normal 12.0-14.8 [facility] Comment on above: Performed By: #### C BC, BMP #### [facility] [address] [place] [address] [place] Erythrocytes [#/volume] in B lood by Automated countOrdered By: Augusto Duque on 01-15-2025 RBC (Bld) [#/Vol] 4.28 10*6/uL Normal 3.90-5.60 [facility] Comment on above: Performed By: #### C JUAN CARLOS, BMP #### [address] Glomerular filtration rate [ Volume Rate/Area] in Serum, Plasma or Blood by CreatinineOrdered By: Augusto Duque on 01-15-2025 Glomerular filtration rate [Volume Rate/Area] in Serum, Plasma or Blood by Creatinine > 60.0 mL/Min [facility] Glucose [Mass/volume] in Ser um or PlasmaOrdered By: Augusto Duque on 01-15-2025 Glucose [Mass/Vol] 117 mg/dL High 70-100 [facility] Comment on above: ADA recommended refe rence rangeRandom Glucose Reference Range is dependent on time and content of last meal. Glucose of more than 200 mg/dL in a nonstressed, ambulatory subject supports the diagnosis of Diabetes Mellitus. Result Comment: [place] om Glucose Reference Range is dependent on time and content of last meal. Glucose of more than 200 mg/dL in a nonstressed, ambulatory subject supports the diagnosis of Diabetes Mellitus. ADA recommended reference range Performed By: #### C JUAN CARLOS, BMP #### [address] Hematocrit [Volume Fraction] of Blood by Automated countOrdered By: Augusto Duque on 01-15-2025 Hematocrit (Bld) [Volume fraction] 37.6 % Low 38.8-50.0 [facility] Comment on above: Performed By: #### C JUAN CARLOS, BMP #### [address] Hemoglobin [Mass/volume] in BloodOrdered By: Augusto Duque on 01-15-2025 Hemoglobin (Bld) [Mass/Vol] 12.7 g/dL Low 13.0-17.0 [facility] Comment on above: Performed By: #### C JUAN CARLOS, BMP #### [place] [address] [place] Leukocytes [#/volume] correc tonie for nucleated erythrocytes in Blood by Automated counOrdered By: Augusto Duque on 01-15-2025 WBC corrected for nucl RBC Auto (Bld) [#/Vol] 6.1 10*3/uL 4.1-10.5 [facility] Leukocytes [#/volume] in Blo od by Automated countOrdered By: Augusto Duque on 01-15-2025 WBC (Bld) [#/Vol] 6.1 10*3/uL Normal 4.1-10.5 [facility] Comment on above: Performed By: #### C BC, BMP #### [place] [address] [place] Lymphocytes [#/volume] in Bl ood by Automated countOrdered By: Augusto Duque on 01-15-2025 Lymphocytes (Bld) [#/Vol] 1.5 10*3/uL Normal 1.00-4.8 [facility] Comment on above: Performed By: #### C JUAN CARLOS, BMP #### [place] [address] [place] Lymphocytes/100 leukocytes i n Blood by Automated countOrdered By: Augusto Duque on 01-15-2025 Lymphocytes/100 WBC (Bld) 24.8 % Normal . [facility] Comment on above: Performed By: #### C BC, BMP #### [address] MCH [Entitic mass] by Automa tonie countOrdered By: Augusto Duque on 01-15-2025 MCH (RBC) [Entitic mass] 29.6 pg Normal 27.5-35.2 [facility] Comment on above: Performed By: #### C BC, BMP #### [address] MCHC Auto (RBC) [Mass/Vol]Or dered By: Augusto Duque on 01-15-2025 MCHC (RBC) [Mass/Vol] 33.6 g/dL 32.5-35.6 [facility] MCV [Entitic volume] by Auto mated countOrdered By: Augusto Duque on 01-15-2025 MCV (RBC) [Entitic vol] 87.9 fL Normal 83.5-101 [facility] Comment on above: Performed By: #### C BC, BMP #### [facility] [address] [place] [address] [place] Monocytes [#/volume] in Bloo d by Automated countOrdered By: Augusto Duque on 01-15-2025 Monocytes (Bld) [#/Vol] 0.7 10*3/uL Normal 0.0-0.8 [facility] Comment on above: Performed By: #### C BC, BMP #### [facility] [address] [place] [address] [place] Monocytes/100 leukocytes in Blood by Automated countOrdered By: Augusto Duque on 01-15-2025 Monocytes/100 WBC (Bld) 10.7 % Normal . [facility] Comment on above: Performed By: #### C BC, BMP #### [place] [address] [place] Neutrophils [#/volume] in Bl ood by Automated countOrdered By: Augusto Duque on 01-15-2025 Neutrophils (Bld) [#/Vol] 3.8 10*3/uL Normal 1.8-7.7 [facility] Comment on above: Performed By: #### C BC, BMP #### [address] Neutrophils/100 leukocytes i n Blood by Automated countOrdered By: Augusto Duque on 01-15-2025 Neutrophils/100 WBC (Bld) 63.0 % Normal . [facility] Comment on above: Performed By: #### C BC, BMP #### [address] No Panel InformationOrdered By: Augusto Duque on 01-15-2025 Pharmacy Creatinine Clearance (Chem 88.76 [facility] Nucleated erythrocytes [Pres ence] in Blood by Automated countOrdered By: Augusto Duque on 01-15-2025 Nucleated RBC Auto Ql (Bld) 0.1 /100{WBC} 0-0.5 [facility] Platelet mean volume [Entiti c volume] in Blood by Automated countOrdered By: Augusto Duque on 01-15-2025 Platelet mean volume (Bld) [Entitic vol] 7.4 fL Normal 6.6-10.1 [facility] Comment on above: Performed By: #### C BC, BMP #### [facility] [address] Platelets [#/volume] in Bloo d by Automated countOrdered By: Augusto Duque on 01-15-2025 Platelets (Bld) [#/Vol] 156 10*3/uL Normal 150-450 [facility] Comment on above: Performed By: #### C BC, BMP #### [address] Potassium [Moles/volume] in Serum or PlasmaOrdered By: Augusto Duque on 01-15-2025 Potassium [Moles/Vol] 4.6 mmol/L Normal 3.5-5.1 [facility] Comment on above: Performed By: #### C BC, BMP #### [address] Serum or plasma anion gap de terminationOrdered By: Augusto Duque on 01-15-2025 Anion gap [Moles/Vol] 10.4 mmol/L Normal 6.0-15.0 [facility] Comment on above: Performed By: #### C BC, BMP #### [address] Sodium [Moles/volume] in Ser um or PlasmaOrdered By: Augusto Duque on 01-15-2025 Sodium [Moles/Vol] 140 mmol/L Normal 136-145 [facility] Comment on above: Performed By: #### C BC, BMP #### [place] [address] [place] Urea nitrogen [Mass/volume] in Serum or PlasmaOrdered By: Augusto Duque on 01-15-2025 Urea nitrogen [Mass/Vol] 15 mg/dL Normal 7-25 [facility] Comment on above: Performed By: #### C BC, BMP #### [address] Alanine aminotransferase [En zymatic activity/volume] in Serum or PlasmaOrdered By: Roverto Wood on 01-14-2025 ALT [Catalytic activity/Vol] 21 U/L Normal 7-52 [facility] Comment on above: Performed By: #### C BC, PP, CMP #### [facility] [address] [place] [address] [place] Albumin [Mass/volume] in Ser um or Plasma by Bromocresol green (BCG) dye binding methoOrdered By: Roverto Wood on 01-14-2025 Albumin BCG dye [Mass/Vol] 4.1 g/dL 3.5-5.7 [facility] Alkaline phosphatase [Enzyma tic activity/volume] in Serum or PlasmaOrdered By: Roverto Wood on 01-14-2025 ALP [Catalytic activity/Vol] 60 U/L Normal 34-104 [facility] Comment on above: Performed By: #### C BC, PP, CMP #### [facility] [address] [place] [address] Appearance of UrineOrdered B y: Roverto Wood on 01-14-2025 Appearance (U) Cloudy Critically abnormal Clear [facility] Comment on above: Order Comment: Name Collection Type:: Mendoza Catheter Performed By: #### C UU, ADDONUAPLUS #### [facility] [address] [place] [address] [place] Aspartate aminotransferase [ Enzymatic activity/volume] in Serum or PlasmaOrdered By: Roverto Wood on 01-14-2025 AST [Catalytic activity/Vol] 20 U/L Normal 13-39 [facility] Comment on above: Performed By: #### C BC, PP, CMP #### [facility] [address] [place] [address] [place] Bacteria [Presence] in Urine by AutomatedOrdered By: Roverto Wood on 01-14-2025 Bacteria Auto Ql (U) None seen [HPF] None Seen [facility] Basophils [#/volume] in Bloo d by Automated countOrdered By: Roverto Wood on 01-14-2025 Basophils (Bld) [#/Vol] 0.0 10*3/uL Normal 0.0-0.2 [facility] Comment on above: Result Comment: PERF ORMED BY: [place] [address] PATHOLOGIST ELECTRICAL TEST ENGINEER LUC ACOSTA M.D. Performed By: #### C BC, PP, CMP #### [facility] [address] [place] [address] Basophils/100 leukocytes in Blood by Automated countOrdered By: Roverto Wood on 01-14-2025 Basophils/100 WBC (Bld) 0.5 % Normal . [facility] Comment on above: Performed By: #### C BC, PP, CMP #### [address] Bilirubin Test strip Ql (U)O rdered By: Roverto Wood on 01-14-2025 Bilirubin Ql (U) Negative Negative [facility] Bilirubin.total [Mass/volume ] in Serum or PlasmaOrdered By: Roverto Wood on 01-14-2025 Bilirubin [Mass/Vol] 0.6 mg/dL Normal 0.3-1.0 [facility] Comment on above: Performed By: #### C BC, PP, CMP #### [address] abdomen pelvis w conon CT abdomen pelvis w con [facility] [place] [address] CT Scan Report Signed Patient: Stephane Toribio MR#: [id number] 700 : 1960 Acct:[id number] Age/Sex: 64 / M ADM Date: 01/14/25 Loc: ER Room: Type: [facility] ER Attending Dr: Copies to: Roverto Wood DO Ordering Provider: Roverto Wood DO Date of Service: 01/14/25 CT/CT abdomen pelvis w con: hematuria CT ABDOMEN AND PELVIS WITH INTRAVENOUS CONTRAST: CLINICAL HISTORY: Mendoza placed yesterday passing blood. COMPARISON: None TECHNIQUE: Spiral images were obtained through the abdomen and pelvis following the administration of intravenous contrast. This CT exam was performed using one or more following dose reduction techniques: Automated exposure control, adjustment of the mA and/or kV according to patient size, or use of iterative reconstruction technique. FINDINGS: Lung Bases: [Mild lung scarring.] Organs:Liver gallbladder spleen pancreas and adrenal glands appear unremarkable. Subcentimeter low attenuating lesions involving the kidneys too small for accurate characterization. Aorta appears normal in caliber.[ GI: Stomach is grossly unremarkable. Small bowel appears nondilated. No acute colonic abnormality.[ Pelvis:[Mendoza catheter in place decompressing the urinary bladder. Prostatomegaly. Hyperdense material seen within the urinary bladder lumen consistent with the history of blood.] Peritoneum/Retroperitoneum :No free air or free fluid or lymphadenopathy.[ Abd wall/Bones:Abdominal wall demonstrates no acute findings. Osseous structures demonstrate degenerative change.[ CT/CT abdomen pelvis w con IMPRESSION: A Mendoza catheter is in place with decompression of the urinary bladder. There appears to be hyperdense material within the lumen of the urinary bladder consistent with the history of blood. Otherwise, no suspicious abnormalities seen within the abdomen or pelvis. Impression dictated by: Reji Yao Jr., D.OKrzysztof 01/14/2025 5:00 PM Dictation Location: [id number]-18 Transcribed By: [facility] 01/14/25 1700 Dictated By: Reji Yao Jr, DO 01/14/25 1653 Signed By: 01/14/25 1700 Normal [facility] Calcium [Mass/volume] in Ser um or PlasmaOrdered By: Roverto Wood on 01-14-2025 Calcium [Mass/Vol] 9.1 mg/dL Normal 8.6-10.3 [facility] Comment on above: Performed By: #### C BC, PP, CMP #### [facility] [address] [place] [address] [place] Carbon dioxide, total [Moles /volume] in Serum or PlasmaOrdered By: Roverto Wood on 01-14-2025 CO2 [Moles/Vol] 24.8 mmol/L Normal 21.0-31.0 [facility] Comment on above: Performed By: #### C BC, PP, CMP #### [facility] [address] [place] [id number] [place] Chloride [Moles/volume] in S donta or PlasmaOrdered By: Roverto Wood on 01-14-2025 Chloride [Moles/Vol] 109 mmol/L High 98-107 [facility] Comment on above: Performed By: #### C BC, PP, CMP #### [address] Coagulation Profileon 2024 aPTT Coag (Bld) [Time] 29.6 s Normal 25.1-36.5 [facility] Comment on above: Result Comment: A matocrit value greater than 55% may lead to inaccurate results in coagulation testing. Patients having hematocrit values >55% require a special collection tube for coagulation studies. Please contact the laboratory at [phone] for redraw instructions. PERFORMED BY: [place] [address] PATHOLOGIST ELECTRICAL TEST ENGINEER LUC ACOSTA M.D. Performed By: #### C JUAN CARLOS PP, CMP #### [address] Color of Urine by AutoOrdere d By: Roverto Wood on 01-14-2025 Color (U) Light-red Critically abnormal Yellow [facility] Comment on above: Order Comment: Name Collection Type:: Mendoza Catheter Performed By: #### C UU, ADDONUAPLUS #### [address] Complete Blood Count Auto Di ffon 01-14-2025 Mean Corpuscular HGB Conc 34.2 g/dL Normal 32.5-35.6 [facility] Comment on above: Performed By: #### C BC, PP, CMP #### [place] [address] [place] Monocytes/100 WBC (Bld) 18.53 % Normal 0.00-20.00 [facility] Comment on above: Performed By: #### C BC, PP, CMP #### [place] [address] [place] NRBC% 0.3 /100{WBC} Normal 0-0.5 [facility] Comment on above: Performed By: #### C BC, PP, CMP #### [address] White Blood Count 6.1 [CFU]/mL Normal 4.1-10.5 [facility] Comment on above: Performed By: #### C BC, PP, CMP #### [address] Comprehensive Metabolic Pane henny 01-14-2025 Albumin [Mass/Vol] 4.1 g/dL Normal 3.5-5.7 [facility] Comment on above: Performed By: #### C BC, PP, CMP #### [address] Creatinine Clr Calc Pharmacy 78.29 Normal [facility] Comment on above: Result Comment: PERF ORMED BY: [place] [address] PATHOLOGIST ELECTRICAL TEST ENGINEER LUC ACOSTA M.D. Performed By: #### C BC, PP, CMP #### [address] GFR/1.73 sq M.predicted MDRD (S/P/Bld) [Vol rate/Area] 58.266 mL/min/{1.73_m2} Normal [facility] Comment on above: Performed By: #### C BC, PP, CMP #### [address] Creatinine [Mass/volume] in Serum or PlasmaOrdered By: Roverto Wood on 01-14-2025 Creatinine [Mass/Vol] 1.35 mg/dL High 0.70-1.30 [facility] Comment on above: Performed By: #### C BC, PP, CMP #### [place] [address] [place] Dipstick and Microscopicon 1 Bacteria,Urine None Seen Normal None Seen [facility] Comment on above: Order Comment: Name Collection Type:: Mendoza Catheter Performed By: #### C UU, ADDONUAPLUS #### [place] [address] [place] Bilirubin,Urine Negative Normal Negative [facility] Comment on above: Order Comment: Name Collection Type:: Mendoza Catheter Performed By: #### C UU, ADDONUAPLUS #### [address] Glucose Ql (U) Normal Normal Normal [facility] Comment on above: Order Comment: Name Collection Type:: Mendoza Catheter Performed By: #### C UU, ADDONUAPLUS #### [address] Hyaline Casts,Urine None Normal 0-8 [facility] Comment on above: Order Comment: Name Collection Type:: Mendoza Catheter Performed By: #### C UU, ADDONUAPLUS #### [address] Mucus,Urine Rare Normal [facility] Comment on above: Order Comment: Name Collection Type:: Mendoza Catheter Result Comment: PERF ORMED BY: [place] [address] PATHOLOGIST ELECTRICAL TEST ENGINEER LUC ACOSTA M.D. Performed By: #### C UU, ADDONUAPLUS #### [address] Nitrite,Urine Negative Normal Negative [facility] Comment on above: Order Comment: Name Collection Type:: Mendoza Catheter Performed By: #### C UU, ADDONUAPLUS #### [address] Occult Blood,Urine 3+ Normal Negative [facility] Comment on above: Order Comment: Name Collection Type:: Mendoza Catheter Result Comment: PERF ORMED BY: [place] [address] PATHOLOGIST ELECTRICAL TEST ENGINEER LUC ACOSTA M.D. Performed By: #### C UU, ADDONUAPLUS #### [address] RBC,Urine Innumerable Normal 0-4 [facility] Comment on above: Order Comment: Name Collection Type:: Mendoza Catheter Performed By: #### C UU, ADDONUAPLUS #### [address] Specificy [place],Urine 1.006 Normal 1.00 1-1.03 0 [facility] Comment on above: Order Comment: Name Collection Type:: Mendoza Catheter Performed By: #### C UU, ADDONUAPLUS #### [address] Squamous Epithelial Cell,Urine 1-2 Normal 0-2 [facility] Comment on above: Order Comment: Name Collection Type:: Mendoza Catheter Performed By: #### C UU, ADDONUAPLUS #### [address] Urobilinogen,Urine Normal Normal Normal [facility] Comment on above: Order Comment: Name Collection Type:: Mendoza Catheter Performed By: #### C UU, ADDONUAPLUS #### [address] WBC CLUMP, Urine Many Normal None Seen [facility] Comment on above: Order Comment: Name Collection Type:: Mendoza Catheter Performed By: #### C UU, ADDONUAPLUS #### [place] [address] [place] WBC,Urine Innumerable Normal 0-4 [facility] Comment on above: Order Comment: Name Collection Type:: Mendoza Catheter Performed By: #### C UU, ADDONUAPLUS #### [place] [address] [place] Eosinophils [#/volume] in Bl ood by Automated countOrdered By: Roverto Wood on 01-14-2025 Eosinophils (Bld) [#/Vol] 0.0 10*3/uL Normal 0.0-0.45 [facility] Comment on above: Performed By: #### C BC, PP, CMP #### [facility] [address] [place] [address] [place] Eosinophils/100 leukocytes i n Blood by Automated countOrdered By: Roverto Wood on 01-14-2025 Eosinophils/100 WBC (Bld) 0.6 % Normal . [facility] Comment on above: Performed By: #### C JUAN CARLOS, PP, CMP #### [address] Epithelial cells.squamous [# /area] in Urine sediment by Automated countOrdered By: Roverto Wood on 01-14-2025 Epithelial cells.squamous Auto (Urine sed) [#/Area] 1-2 [HPF] 0-2 [facility] Erythrocyte distribution wid th [Ratio] by Automated countOrdered By: Roverto Wood on 01-14-2025 Erythrocyte distribution width (RBC) [Ratio] 12.6 % Normal 12.0-14.8 [facility] Comment on above: Performed By: #### C JUAN CARLOS, PP, CMP #### [address] Erythrocytes [#/area] in Uri ne sediment by Automated countOrdered By: Roverto Wood on 01-14-2025 RBC Auto (Urine sed) [#/Area] Innumerable [HPF] High 0-4 [facility] Erythrocytes [#/volume] in B lood by Automated countOrdered By: Roverto Wood on 01-14-2025 RBC (Bld) [#/Vol] 4.43 10*6/uL Normal 3.90-5.60 [facility] Comment on above: Performed By: #### C JUAN CARLOS, PP, CMP #### [address] Glomerular filtration rate [ Volume Rate/Area] in Serum, Plasma or Blood by CreatinineOrdered By: Roverto Wood on 01-14-2025 Glomerular filtration rate [Volume Rate/Area] in Serum, Plasma or Blood by Creatinine 58.266 mL/Min [facility] Glucose [Mass/volume] in Ser um or PlasmaOrdered By: Roverto Wood on 01-14-2025 Glucose [Mass/Vol] 117 mg/dL High 70-100 [facility] Comment on above: ADA recommended refe rence rangeRandom Glucose Reference Range is dependent on time and content of last meal. Glucose of more than 200 mg/dL in a nonstressed, ambulatory subject supports the diagnosis of Diabetes Mellitus. Result Comment: [facility] Glucose Reference Range is dependent on time and content of last meal. Glucose of more than 200 mg/dL in a nonstressed, ambulatory subject supports the diagnosis of Diabetes Mellitus. ADA recommended reference range Performed By: #### C JUAN CARLOS, PP, CMP #### [address] Glucose [Mass/volume] in Uri ne by Test stripOrdered By: Roverto Wood on 01-14-2025 Glucose Test strip (U) [Mass/Vol] Normal mg/dL Normal [facility] Hematocrit [Volume Fraction] of Blood by Automated countOrdered By: Roverto Wood on 01-14-2025 Hematocrit (Bld) [Volume fraction] 38.3 % Low 38.8-50.0 [facility] Comment on above: Performed By: #### C JUAN CARLOS, PP, CMP #### [address] Hemoglobin Test strip Ql (U) Ordered By: Roverto Wood on 01-14-2025 Hemoglobin Ql (U) 3+ High Negative [facility] Hemoglobin [Mass/volume] in BloodOrdered By: Roverto Wood on 01-14-2025 Hemoglobin (Bld) [Mass/Vol] 13.1 g/dL Normal 13.0-17.0 [facility] Comment on above: Performed By: #### C JUAN CARLOS, PP, CMP #### [address] Hyaline casts [#/area] in Ur ine sediment by Automated countOrdered By: Roverto Wood on 01-14-2025 Hyaline casts Auto (Urine sed) [#/Area] None [LPF] 0-8 [facility] INR in Platelet poor plasma by Coagulation assayOrdered By: Roverto Wood on 01-14-2025 INR Coag (PPP) [Relative time] 1.0 {INR} Normal [facility] Comment on above: INR Therapeutic Rang e A) Pre- and Peroperative OAT started two weeks before surgery. NOT HIP SURGERY: 1.5 - 2.5 HIP SURGERY: 2 - 3B) Primary and secondary prevention of venous THROMBOSIS: 2 - 3C) Active venous thrombosis, pulmonary embolismand prevention of recurrent venous thrombosis: 2 - 3D) Prevention of arterial thromboembolismincluding patients with mechanical heart valves: 3 - 4.5 Result Comment: INR Therapeutic Range A) Pre- and Peroperative OAT started two weeks before surgery. NOT HIP SURGERY: 1.5 - 2.5 HIP SURGERY: 2 - 3 B) Primary and secondary prevention of venous THROMBOSIS: 2 - 3 C) Active venous thrombosis, pulmonary embolism and prevention of recurrent venous thrombosis: 2 - 3 D) Prevention of arterial thromboembolism including patients with mechanical heart valves: 3 - 4.5 Performed By: #### C BC, PP, CMP #### [facility] [address] [place] [address] [place] Ketones [Presence] in Urine by Test stripOrdered By: Roverto Wood on 01-14-2025 Ketones Ql (U) Negative Normal Negative [facility] Comment on above: Order Comment: Name Collection Type:: Mendoza Catheter Performed By: #### C UU, ADDONUAPLUS #### [facility] [address] [place] [address] [place] Leukocyte clumps [Presence] in Urine by AutomatedOrdered By: Roverto Wood on 01-14-2025 Leukocyte clumps Auto Ql (U) Many [LPF] High None Seen [facility] Leukocyte esterase [Presence ] in Urine by Test stripOrdered By: Roverto Wood on 01-14-2025 Leukocyte esterase Test strip Ql (U) 2+ Normal Negative [facility] Comment on above: Order Comment: Name Collection Type:: Mendoza Catheter Performed By: #### C UU, ADDONUAPLUS #### [facility] [address] [place] [address] [place] Leukocytes [#/area] in Urine sediment by Automated countOrdered By: Roverto Wood on 01-14-2025 WBC Auto (Urine sed) [#/Area] Innumerable [HPF] High 0-4 [facility] Leukocytes [#/volume] correc tonie for nucleated erythrocytes in Blood by Automated counOrdered By: Roverto Wood on 10-04-2025 WBC corrected for nucl RBC Auto (Bld) [#/Vol] 6.1 10*3/uL 4.1-10.5 [facility] Leukocytes [#/volume] in Blo od by Automated countOrdered By: Roverto Wood on 01-14-2025 WBC (Bld) [#/Vol] 6.1 10*3/uL Normal 4.1-10.5 [facility] Comment on above: Performed By: #### C BC, PP, CMP #### [facility] [address] Lymphocytes [#/volume] in Bl ood by Automated countOrdered By: Roverto Wood on 01-14-2025 Lymphocytes (Bld) [#/Vol] 1.4 10*3/uL Normal 1.00-4.8 [facility] Comment on above: Performed By: #### C BC, PP, CMP #### [address] Lymphocytes/100 leukocytes i n Blood by Automated countOrdered By: Roverto Wood on 01-14-2025 Lymphocytes/100 WBC (Bld) 22.8 % Normal . [facility] Comment on above: Performed By: #### C BC, PP, CMP #### [address] MCH [Entitic mass] by Automa tonie countOrdered By: Roverto Wood on 01-14-2025 MCH (RBC) [Entitic mass] 29.6 pg Normal 27.5-35.2 [facility] Comment on above: Performed By: #### C BC, PP, CMP #### [address] MCHC Auto (RBC) [Mass/Vol]Or dered By: Roverto Wood on 01-14-2025 MCHC (RBC) [Mass/Vol] 34.2 g/dL 32.5-35.6 [facility] MCV [Entitic volume] by Auto mated countOrdered By: Roverto Wood on 01-14-2025 MCV (RBC) [Entitic vol] 86.6 fL Normal 83.5-101 [facility] Comment on above: Performed By: #### C BC, PP, CMP #### [facility] [address] [place] [address] [place] Monocyte distribution width [Entitic volume] in Blood by AutomatedOrdered By: Roverto Wood on 01-14-2025 Monocyte distribution width Auto (Bld) [Entitic vol] 18.53 % 0.00-20.00 [facility] Monocytes [#/volume] in Bloo d by Automated countOrdered By: Roverto Wood on 01-14-2025 Monocytes (Bld) [#/Vol] 0.8 10*3/uL Normal 0.0-0.8 [facility] Comment on above: Performed By: #### C BC, PP, CMP #### [facility] [address] [place] [address] [place] Monocytes/100 leukocytes in Blood by Automated countOrdered By: Roverto Wood on 01-14-2025 Monocytes/100 WBC (Bld) 12.4 % Normal . [facility] Comment on above: Performed By: #### C BC, PP, CMP #### [address] Mucus [Presence] in Urine by AutomatedOrdered By: Roverto Wood on 01-14-2025 Mucus Auto Ql (U) Rare [LPF] [facility] Neutrophils [#/volume] in Bl ood by Automated countOrdered By: Roverto Wood on 01-14-2025 Neutrophils (Bld) [#/Vol] 3.9 10*3/uL Normal 1.8-7.7 [facility] Comment on above: Performed By: #### C BC, PP, CMP #### [facility] [address] [place] [address] [place] Neutrophils/100 leukocytes i n Blood by Automated countOrdered By: Roverto Wood on 01-14-2025 Neutrophils/100 WBC (Bld) 63.7 % Normal . [facility] Comment on above: Performed By: #### C BC, PP, CMP #### [place] [address] [place] Nitrite Test strip Ql (U)Ord ered By: Roverto Wood on 01-14-2025 Nitrite Ql (U) Negative Negative [facility] No Panel InformationOrdered By: Roverto Wood on 01-14-2025 Pharmacy Creatinine Clearance (Chem 78.29 [facility] Nucleated erythrocytes [Pres ence] in Blood by Automated countOrdered By: Roverto Wood on 01-14-2025 Nucleated RBC Auto Ql (Bld) 0.3 /100{WBC} 0-0.5 [facility] Platelet mean volume [Entiti c volume] in Blood by Automated countOrdered By: Roverto Wood on 01-14-2025 Platelet mean volume (Bld) [Entitic vol] 7.2 fL Normal 6.6-10.1 [facility] Comment on above: Performed By: #### C BC, PP, CMP #### [facility] [address] [place] [address] [place] Platelets [#/volume] in Bloo d by Automated countOrdered By: Roverto Wood on 01-14-2025 Platelets (Bld) [#/Vol] 160 10*3/uL Normal 150-450 [facility] Comment on above: Performed By: #### C BC, PP, CMP #### [facility] [address] [place] [address] [place] Potassium [Moles/volume] in Serum or PlasmaOrdered By: Roverto Wood on 01-14-2025 Potassium [Moles/Vol] 4.2 mmol/L Normal 3.5-5.1 [facility] Comment on above: Performed By: #### C BC, PP, CMP #### [facility] [address] [place] [address] [place] Protein [Mass/volume] in Ser um or PlasmaOrdered By: Roverto Wood on 01-14-2025 Protein [Mass/Vol] 6.6 g/dL Normal 6.4-8.9 [facility] Comment on above: Performed By: #### C BC, PP, CMP #### [facility] [address] [place] [address] [place] Protein [Mass/volume] in Uri ne by Test stripOrdered By: Roverto Wood on 01-14-2025 Protein (U) [Mass/Vol] 30 mg/dL Normal Negative [facility] Comment on above: Order Comment: Name Collection Type:: Mendoza Catheter Performed By: #### C UU, ADDONUAPLUS #### [address] Prothrombin time (PT)Ordered By: Roverto Wood on 01-14-2025 PT Coag (PPP) [Time] 11.8 s Normal 9.0-12.9 [facility] Comment on above: A hematocrit value g reater than 55% may lead to inaccurate results in coagulation testing. Patients having hematocrit values >55% require a special collection tube for coagulation studies. Please contact the laboratory at [phone] for redraw instructions. Result Comment: A he matocrit value greater than 55% may lead to inaccurate results in coagulation testing. Patients having hematocrit values >55% require a special collection tube for coagulation studies. Please contact the laboratory at [phone] for redraw instructions. Performed By: #### C BC, PP, CMP #### [address] Serum globulin measurement b y calculation (mass/volume)Ordered By: Roverto Wood on 01-14-2025 Globulin (S) [Mass/Vol] 2.5 g/dL Normal [facility] Comment on above: Performed By: #### C BC, PP, CMP #### [address] Serum or plasma albumin/glob ulin mass ratioOrdered By: Roverto Wood on 01-14-2025 Albumin/Globulin [Mass ratio] 1.6 {ratio} Normal [facility] Comment on above: Performed By: #### C BC, PP, CMP #### [address] Serum or plasma anion gap de terminationOrdered By: Roverto Wood on 01-14-2025 Anion gap [Moles/Vol] 9.4 mmol/L Normal 6.0-15.0 [facility] Comment on above: Performed By: #### C JUAN CARLOS, PP, CMP #### [facility] [address] [place] [address] [place] Sodium [Moles/volume] in Ser um or PlasmaOrdered By: Rovertosameer Wood on 01-14-2025 Sodium [Moles/Vol] 139 mmol/L Normal 136-145 [facility] Comment on above: Performed By: #### C JUAN CARLOS, PP, CMP #### [facility] [address] Specific gravity Test strip (U) [Rel density]Ordered By: Roverto Wood on 01-14-2025 Specific gravity (U) [Rel density] 1.006 1.001-1.03 0 [facility] UA [id number] 01-14-2025 UA Bacteria None [facility] Comment on above: Order Comment: Urina lysis Microscopic order added on by [employer] Expert Rules system. Performed By: #### 1 [id number], [id number] #### [facility] (DEFAULT) [address] [place] [address] UA RBC 30-40 Normal [facility] Comment on above: Order Comment: Urina lysis Microscopic order added on by [employer] Rules system. Performed By: #### 1 [id number], [id number] #### [facility] (DEFAULT) [address] [place] [address] UA Squam Epi None Seen [facility] Comment on above: Order Comment: Urina lysis Microscopic order added on by [employer] Rules system. Performed By: #### 1 [id number], [id number] #### [facility] (DEFAULT) [address] [place] [address] UA WBC None Seen [facility] Comment on above: Order Comment: Urina lysis Microscopic order added on by [employer] Rules system. Performed By: #### 1 [id number], [id number] #### [facility] (DEFAULT) [address] [place] [address] UA w Culture if Ind Standard on 01-14-2025 Breakpoint UA [facility] Comment on above: Performed By: #### 1 [id number], [id number] #### [facility] (DEFAULT) [address] [place] [address] Color (U) Yellow Normal [facility] Comment on above: Performed By: #### 1 [id number], [id number] #### [facility] (DEFAULT) [address] [place] [address] Culture? Not Indicated Invalid Interpretation Code [facility] Comment on above: Result Comment: Resu lt created by rule GL_MAGR_ADD_UA_CULT Result created by rule GL_MAGR_ADD_UA_CULT Result created by rule GL_MAGR_ADD_UA_CULT1 Performed By: #### 1 [id number], [id number] #### [facility] (DEFAULT) [address] [place] [address] Glucose (U) [Mass/Vol] Negative [facility] Comment on above: Performed By: #### 1 [id number], [id number] #### [facility] (DEFAULT) [address] [place] [address] Ketones Ql (U) Negative [facility] Comment on above: Performed By: #### 1 [id number], [id number] #### [facility] (DEFAULT) [address] [place] [address] Micro? Indicated Invalid Interpretation Code [facility] Comment on above: Result Comment: Resu lt created by rule GL_MAGR_ADD_UA_MICRO Performed By: #### 1 [id number], [id number] #### [facility] (DEFAULT) [address] [place] [address] UA Bilirubin Negative Normal [facility] Comment on above: Performed By: #### 1 [id number], [id number] #### [facility] (DEFAULT) [address] [place] [address] UA Blood LARGE Abnormal NEGATIVE [facility] Comment on above: Performed By: #### 1 [id number], [id number] #### [facility] (DEFAULT) [address] [place] [address] UA Clarity SL CLOUDY Abnormal CLEAR [facility] Comment on above: Performed By: #### 1 [id number], [id number] #### [facility] (DEFAULT) [address] [place] [address] UA Leuk Est Negative Normal NEGATIVE [facility] Comment on above: Performed By: #### 1 [id number], [id number] #### [facility] (DEFAULT) [address] [place] [address] UA Nitrite Negative Normal NEGATIVE [facility] Comment on above: Performed By: #### 1 [id number], [id number] #### [facility] (DEFAULT) [address] [place] [address] UA pH 6.0 Normal 5-8 [facility] Comment on above: Performed By: #### 1 [id number], [id number] #### [facility] (DEFAULT) [address] [place] [address] UA Protein Negative Normal NEGATIVE [facility] Comment on above: Performed By: #### 1 [id number], [id number] #### [facility] (DEFAULT) [address] [place] [address] UA Spec Grav 1.015 Normal 1.001-1.[address] [place] [address] Comment on above: Performed By: #### 1 [id number], [id number] #### [facility] (DEFAULT) [address] [place] [address] UA Urobilinogen 0.2 mg/dL Normal 0.2-1.0 [facility] Comment on above: Performed By: #### 1 [id number], [id number] #### [facility] (DEFAULT) [address] [place] [address] Urine Source Catheter Normal [facility] Comment on above: Performed By: #### 1 [id number], [id number] #### [facility] (DEFAULT) [address] [place] [address] Urea nitrogen [Mass/volume] in Serum or PlasmaOrdered By: Roverto Wood on 01-14-2025 Urea nitrogen [Mass/Vol] 20 mg/dL Normal 7-25 [facility] Comment on above: Performed By: #### C BC, PP, CMP #### [facility] [address] [place], [place] [id number] [facility] Urine Cultureon 01-14-2025 Bacteria identified Cx Nom (U) No Growth 2 Days PERFORMED BY: [place] [address] PATHOLOGIST ELECTRICAL TEST ENGINEER [facility] Comment on above: Performed By: #### C UU, ADDONUAPLUS #### [facility] [address] [place], [place] [id number] [facility] Urine cultureOrdered By: Norah Wood on 01-14-2025 Bacteria identified Cx Nom (U) No Growth 2 Days [facility] Urobilinogen Test strip (U) [Mass/Vol]Ordered By: Roverto Wood on 01-14-2025 Urobilinogen (U) [Mass/Vol] Normal mg/dL Normal [facility] aPTT in Platelet poor plasma by Coagulation assayOrdered By: Roverto Wood on 01-14-2025 aPTT Coag (PPP) [Time] 29.6 s 25.1-36.5 [facility] Comment on above: A hematocrit value g reater than 55% may lead to inaccurate results in coagulation testing. Patients having hematocrit values >55% require a special collection tube for coagulation studies. Please contact the laboratory at [phone] for redraw instructions. pH of Urine by Test stripOrd ered By: Roverto Wood on 01-14-2025 pH (U) 6.0 [pH] Normal 5.0-9.0 [facility] Comment on above: Order Comment: Name Collection Type:: Mendoza Catheter Performed By: #### C UU, ADDONUAPLUS #### [facility] [address] [place], [place] [id number] [facility] 36on 01-13-2025 36 Pt agrees to OV on 02/10/[address] Maradiaga in [facility] ED Note - Physicianon 2024 ED Note - Physician Patient: GANESH TORIBIO Age: 64 years Sex: MALE : 1960 Associated Diagnoses: Acute on chronic urinary retention Author: Lee Wise MD Basic Information Time seen: Date & time 01/13/2025 23:36:00. History source: Patient. Arrival mode: Private vehicle. History limitation: None. Additional information: Chief Complaint from Nursing Triage Note : Chief Complaint 01/13/2025 23:22 EDT Chief Complaint Pt states he has been unable to urinate today . History of Present Illness The patient presents with urinary retention. The onset was just prior to arrival. The character of symptoms is bladder fullness. The degree of symptoms is severe. Risk factors consist of obesity and benign prostatic hypertrophy. 64-year-old male presented to ER with complaint regarding urinary retention, unable to urinate. Patient reported longstanding history of urinary retention. Had been on various remedies including finasteride which caused him issues in the past, making him stop the medication. Stated that he has also been on tamsulosin, saw palmetto and various other. Reported that he had increasing symptoms of urinary retention recently. Had an MRI of his prostate done outpatient in his home area. He showed me the results. Stated that tonight, after several hours, unable to void. Reported increasing pressure discomfort. No fevers. Review of Systems Constitutional symptoms: No fever, Skin symptoms: Negative except as documented in HPI. Respiratory symptoms: Negative except as documented in HPI. Cardiovascular symptoms: Negative except as documented in HPI. Gastrointestinal symptoms: Moderate, suprapubic, pressure. Genitourinary symptoms: Negative except as documented in HPI. Health Status Allergies: Allergic Reactions (Selected) No known allergies. Medications: (Selected) Documented Medications Documented Melatonin: 0 Refill(s) acetaminophen: 0 Refill(s) finasteride: 0 Refill(s) lisinopril: 0 Refill(s) montelukast: 0 Refill(s) naproxen: 0 Refill(s) pantoprazole: 0 Refill(s) sildenafil 20 mg oral tablet: 0 Refill(s) tamsulosin: 0 Refill(s). Past Medical/ Family/ Social History Medical history: No active or resolved past medical history items have been selected or recorded., Reviewed as documented in chart. Surgical history: No active procedure history items have been selected or recorded., Reviewed as documented in chart. Family history: No family history items have been selected or recorded., Reviewed as documented in chart. Social history: Social & Psychosocial Habits Alcohol 01/13/2025 Alcohol Use: Current Substance Use 01/13/2025 Substance use: Never Tobacco 01/13/2025 Smoking tobacco use: Never tobacco user Electronic Cigarette/Vaping 01/13/2025 Electronic Cigarette Use: Never , Reviewed as documented in chart. Problem list: No qualifying data available , per nurse's notes. Physical Examination Vital Signs Vital Signs 01/13/2025 23:22 EDT Temperature Temporal Artery 36.4 DegC Peripheral Pulse Rate 93 bpm Respiratory Rate 20 br/min Systolic Blood Pressure 188 mmHg >HHI Diastolic Blood Pressure 99 mmHg HI Mean Arterial Pressure, Cuff 129 mmHg HI SpO2 100 % Oxygen Therapy Room air . Measurements 01/13/2025 23:22 EDT Height 177.80 cm Weight 141.52 kg Weight Dosing 141.520 kg Body Mass Index Measured 44.77 kg/m2 . Basic Oxygen Information 01/13/2025 23:22 EDT SpO2 100 % Oxygen Therapy Room air . General: Alert, moderate distress, Morbid obese 64-year-old male, awake and alert, indicating urinary discomfort. Skin: Warm, dry. Head: Normocephalic, atraumatic. Ears, nose, mouth and throat: Oral mucosa moist. Respiratory: Respirations are non-labored. Gastrointestinal: Soft, Obese, Tenderness: Moderate, suprapubic. Genitourinary: Normal external genitalia. Back: Normal range of motion. Musculoskeletal: Normal ROM. Medical Decision Making Differential Diagnosis: Urinary retention, benign prostatic hypertrophy, prostatitis, cystitis. Orders Launch Orders Laboratory: UA w Culture if Ind Standard (Order): Urine, Stat collect, 01/13/2025 23:37 EDT, Nurse collect Patient Care: Insert Mendoza Cath (Order): 01/13/2025 23:37 EDT, Indwelling, Reason: Other (Specify in Special Instructions), Medical necessity. See HPI. Reexamination/ Reevaluation Relevant differential diagnosis: See above discussion. Bladder outlet obstruction, BPH, UTI, urethral stricture, urethritis, nephrolithiasis, ureterolithiasis, hematuria. Number and complexity of problems: Patient presented to ER for evaluation of acute urinary retention. Patient had reported progressive history of weaker stream. Hesitancy. Frequecy. Incomplete bladder emptying sensation. Had reported having decreased ability to urinate completely despite sensation and urge. Had stoppage of urine since then, with increasing pressure building up. Presented to ER with symptoms of discom (more content not included)... [facility] 36on 01-12-2025 36 The patient's prosta te is markedly enlarged. There are several areas of irregularity within the prostate. I would like to see the patient in the office so that I can review these images with him and make some plans moving forward [place] [id number] 01-06-2025 36 Pt has been added to MRI list. [facility] 36 Pt is scheduled for 01/10 at 1:[address] 01-05-2025 36 Error [place] [id number] I have started the [facility] for the MRI to see if we can move WENDY appt before jan.11 [facility] 36 Patient called in ad vising returning call to [place]. Patient made aware of MRI date, time, location. Patient again stated that starting 01/11/25 will have Medicare A and B. Patient has not yet received card. [facility] 36 UROLOGY MRI QUESTION NAIRE: Patients time preference for MRI? AM MRI Facility location preference? [facility] Is the patient claustrophobic? no Does the patient have metal in their body? yes - hand Has the patient ever worked with equipment that could leave fragments in their eyes (welding, grinding, etc.)? no Is there a possibility of any metal in the patients eyes? no Is the patient on dialysis? no Has the patient had a hip replacement? no Does the patient have a Mediport? no Patients height? Ht Readings from Last 1 Encounters: 01/01/24 5' 10 (1.778 m) Patients weight? Wt Readings from Last 1 Encounters: 01/01/24 (!) 330 lb (150 kg) [facility] 36 MRI ordered [facility] 36 Pt is agreeable to prostate MRI see [employer] for Good messages [place] [address]on 01-04-2025 36 LM to return call or see 1.618 Technology for test result. [place] [address]on 01-03-2025 36 PSA 9.530 - lower th an April, but still higher than 2023 I feel that prostate MRI is next step. If he agrees, then I will place order [facility] Office Visiton 01-02-2025 Follow-up visit [id number] Antoine Toribio 1960 M Date Provider Department Center 01/02/2025 [id number] MARADIAGA [facility] URO None Family History Problem Relation Age of Onset Arthritis Mother Arthritis Father Hearing loss Father Family Status - Relation Status Age at Mother Alive Father Alive Level of Service:57541 [place] OFFICE/OUTPATIENT ESTABLISHED MOD MDM 30 MIN Reason for Visit and Comments: Other [0] - Annual follow up, bph, would like to discuss testosterone for lethargy Sometimes where I can't get anything out, unsure of emptying, dribbling stream Nocturia x1-2, denies hematuria and dysuria Normal [facility] Progress Noteon 01-02-2025 Progress Note Reji fuentes MD 01/02/2025 at 4:07 PM OFFICE FOLLOW-UP VISIT PATIENT NAME: Stephane Toribio DATE OF : 1960 TODAY'S DATE: 01/02/2025 CHIEF COMPLAINT: Chief Complaint Patient presents with Other Annual follow up, bph, would like to discuss testosterone for lethargy Sometimes where I can't get anything out, unsure of emptying, dribbling stream Nocturia x1-2, denies hematuria and dysuria Subjective: Mr. Toribio is a 64 y.o. male who presents to the office for follow up of worsening LUTS. See below for past history. Increased frequency. Review of Systems Past Medical History: Medical History[1] Past Surgical History: Surgical History[2] Allergies: Dust mite extract Social History: Issues identified in the H&P were noted Family History: Family History[3] Medications Prior to Admission medications Medication Sig Start Date End Date Taking? Authorizing Provider gentamicin (Garamycin) 0.1 % ointment Apply 1 Application topically daily. 12/22/24 Yes Historical Provider, linezolid (Zyvox) 600 MG tablet Take 600 mg by mouth 2 times daily. 12/29/24 01/12/25 Yes Historical Provider, tamsulosin (Flomax) 0.4 MG 24 hr capsule 2 capsules Every 24 hours. 02/13/24 Yes Historical Provider, acetaminophen (Tylenol) 325 MG tablet Take 650 mg by mouth. Historical Provider, aspirin 81 MG EC tablet Take 81 mg by mouth in the morning. Historical Provider, b complex vitamins capsule Take 1 capsule by mouth. Historical Provider, Bacillus Coagulans-Inulin (Probiotic) 1-250 BILLION-MG capsule Take by mouth. Historical ProviderMD cholecalciferol (Vitamin D-3) 50 MCG (2000 UT) capsule Take 5,000 Units by mouth. Historical ProviderMD esomeprazole (NexIUM) [address] capsule Take 40 mg by mouth. Historical Provider, finasteride (Proscar) 5 MG tablet Take 1 tablet (5 mg) by mouth daily. 01/02/25 04/02/25 Reji Maradiaga MD fluticasone (Flonase) 50 MCG/ACT nasal spray 1 spray. Historical Provider, lisinopril 20 MG tablet Take 20 mg by mouth. Historical Provider, loratadine (Claritin) 10 MG tablet Take 10 mg by mouth daily. Historical Provider, melatonin 5 MG tablet Take 5 mg by mouth. Historical Provider, Mis Natural Products (Prostate Health) capsule Take by mouth. Historical Provider, montelukast (Singulair) 10 MG tablet Take 10 mg by mouth Nightly. Historical Provider, Multiple Vitamin (Multi-Vitamin) tablet Take 1 tablet by mouth in the morning. Historical ProviderMD naproxen (Naprosyn) 500 MG tablet Take 500 mg by mouth every 12 hours as needed. With food or milk Historical ProviderMD omega-3 (Fish Oil) 1200 MG capsule Take 1,200 mg by mouth. Historical ProviderMD omega-3 acid ethyl esters (Lovaza) 1 g capsule 2 tablets Every 24 hours. Historical Provider, Probiotic Product (Probiotic Blend) capsule Every 24 hours. Historical ProviderMD sildenafil (Viagra) 100 MG tablet take 1/2 to 1 tablet by mouth once daily if needed 04/17/22 Historical ProviderMD tamsulosin (Flomax) 0.4 MG 24 hr capsule Take 1 capsule (0.4 mg) by mouth 2 times daily. Take 30 minutes after a meal. 01/02/25 04/02/25 Reji Maradiaga MD tamsulosin (Flomax) 0.4 MG 24 hr capsule Take 1 capsule (0.4 mg) by mouth 2 times daily. Take 30 minutes after a meal. 01/01/24 01/02/25 Reji Maradiaga MD triamcinolone (Kenalog) 0.1 % cream Apply 1 Application topically 2 times daily. 04/20/23 01/02/25 Historical Provider, Vitals: BP 139/78 (BP Location: Left arm, Patient Position: Sitting, BP Cuff Size: Adult long) Pulse 60 Physical Exam Physical Exam Constitutional: Appearance: Normal appearance. HENT: Head: Normocephalic and atraumatic. Eyes: Extraocular Movements: Extraocular movements intact. Pulmonary: Effort: Pulmonary effort is normal. Musculoskeletal: General: Normal range of motion. Cervical back: Normal range of motion. Neurological: General: No focal deficit present. Mental Status: He is alert and oriented to person, place, and time. Psychiatric: Mood and Affect: Mood normal. Behavior: Behavior normal. Thought Content: Thought content normal. Judgment: Judgment normal. LABS: Lab Results Component Value Date PSA 4.588 (H) 05/02/2022 PSA 4.256 (A) 10/24/2021 PSA 3.523 09/20/2019 Lab Results Component Value Date TESTOSTERONE 391 05/13/2022 Lab Results Component Value Date WBC 5.7 04/17/2023 HGB 13.1 04/17/2023 HCT 39.9 (L) 04/17/2023 MCV 86.2 04/17/2023 PLT 216 04/17/2023 Lab Results Component Value Date GLUCOSE 99 04/17/2023 CALCIUM 9.4 04/17/2023 NA 139 04/17/2023 K 4.5 04/17/2023 CO2 24 04/17/2023 CL 108 (H) 04/17/2023 BUN 23 (H) 04/17/2023 CREATININE 1.35 (H) 04/17/2023 Radiology: PVR 48 ml Impression/Plan Stephane was seen today for other. Diagnoses and all orders for this visit: Incomplete bladder emptying (Primary) - Bladder scan Nocturia Freq (more content not included)... Normal [facility] Culture, Anaerobic Any Sourc dee 12-26-2024 CUAN List Antibiotics Las t 48 Hours? NONE List Antibiotics to be Started? GENTAMYCIN TOPICAL No anaerobic bacteria isolated. Normal [facility] Comment on above: Performed By: #### M 100.3000, M100.2000, M100.4001 #### [facility] [address] [place], [address] Wound Cultureon 12-25-2024 WC List Antibiotics Las t 48 Hours? NONE List Antibiotics to be Started? GENTAMYCIN TOPICAL Staphylococcus aureus Amount Growth 1+ Staphylococcus aureus: REACTION cefOXitin Susc Islt Doxycycline Islt MARLEN 8 I Clindamycin Islt MARLEN >=4 R Clindamycin.induced Susc Islt NEG Erythromycin Islt MARLEN >=8 R Gentamicin Islt MARLEN >=16 R Linezolid Islt MARLEN 1 S Moxifloxacin Islt MARLEN 2 S Oxacillin Susc Islt 0.5 S Tetracycline Islt MARLEN >=16 R TMP SMX Islt MARLEN >=320 R Vancomycin Islt MARLEN <=0.5 S Normal [facility] Comment on above: Performed By: #### M 100.3000, M100.2000, M100.4001 #### [facility] [address] [place], [address] Anaerobic cultureOrdered By: Yola Sepulveda on 12-22-2024 Bacteria identified Anaer cx Nom (Unsp spec) No anaerobic bacteria isolated. [facility] Gram Stainon 12-22-2024 GS List Antibiotics Las t 48 Hours? NONE List Antibiotics to be Started? GENTAMYCIN TOPICAL Gram Stain No organisms seen No cells seen Normal [facility] Comment on above: Performed By: #### M 100.3000, M100.2000, M100.4001 #### [facility] [address] [place], [address] Gram stainOrdered By: Aidan Sepulveda on 12-22-2024 Microscopic observation Gram stain Nom (Unsp spec) [facility] History AND Physic cam 12-01-2024 Wound Ctr History & Physical [facility] [address] [place] [address] H P Exam - Wound Care 12/01/24 1408 MR#: [id number] Acct: [id number] Name: STEPHANE TORIBIO Rep #: [id number] : 1960 64 From: Yola STEVENSON PCP: Dr. Abimael Elizabeth, DO Status:REG RCR Location: History of Present Illness Date of Service: 12/01/24 Chief Complaint: Right calf nonhealing wound History of Wound: Mr. Stephane Toribio is a 64 y/o male who presents to the wound center today for ongoing management of his R posterior calf ulceration. He has previously been following with Chacha Dunham here but due to scheduling difficulties is seeing me for the next few weeks. He reports this calf ulcer has been present since around Mid-August, he really cannot pinpoint what may have provoked this. He does recall that remotely he had a thorny apple injure this calf and he subsequently had thorns/material come to the surface later on however he has not observed any such foreign material/body this time. He reports that initial treatment here was with a product that included silver and he felt he noticed improvement on that product; more recently it seems to have stalled a bit. He has some redness around the wound which he reports is fairly stable. He has not had increased pain. He reports mild drainage. He is not diabetic. He does not smoke. He has noticed some irritation around the wound edges which seems to correspond to where the adaptic contacts his skin. He has a R meniscus tear and had plans to proceed with arthroscopic intervention but the wound must be healed in order for him to proceed. [facility] Home Medications ???Medication ???Instructions ???Recorded ???Last Taken ???Type Lactobacillus 1 ea PO DAILY 11/26/17 Unknown His tory 41-B.animalis,bifid-FOS 111 mg (25 billion cell) capsule (Ultimate Probiotic-10) aspirin 81 mg chewable tablet 81 mg PO DAILY@0800 11/26/17 Unkno wn History cholecalciferol (vitamin D3) 25 1,000 unit PO DAILY 11/26/17 Unkno wn History mcg (1,000 unit) capsule (Vitamin D3) esomeprazole magnesium 40 mg 40 mg PO DAILY 11/26/17 12/03/17 0 4:45 History capsule,delayed release (Nexium) 40 MG lidocaine-aloe vera 0.5 % topical 227 g TP PRN PRN CREAM 11/26/17 U nknown History gel lisinopril 20 mg tablet 20 mg PO DAILY 11/26/17 12/03/17 0 4:45 History 20 MG loratadine 10 mg tablet (Allergy 10 mg PO DAILY 11/26/17 Unknown Hi story Relief (loratadine)) melatonin 5 mg capsule 5 mg PO QHS 11/26/17 Unknown Histo ry mometasone 50 mcg/actuation nasal 2 spray DAILY 11/26/17 Unknown Hi story spray (Nasonex) montelukast 10 mg tablet 10 mg PO DAILY 11/26/17 Unknown Hi story naproxen 250 mg tablet 250 mg PO BID 11/26/17 Unknown His tory omega-3 1,050 hj-prh-eqq-dpa-fish 1 ea PO DAILY 11/26/17 Unknown Hi story oil 1,200 mg capsule ([place]-3 2100) sertraline 25 mg tablet (Zoloft) 25 mg PO DAILY 11/26/17 Unknown Hi story tamsulosin 0.4 mg capsule 0.4 mg PO DAILY 11/26/17 Unknown H istory vitamin B comp and C no.3 15 mg-10 1 ea PO DAILY 11/26/17 Unknown H istory mg-50 mg-5 mg-300 mg capsule (B Complex Plus Vitamin C) hydrocodone-acetaminophen 5-325mg 1 ea PO Q6H PRN PRN Pain 5 days 0 12/03/17 Unknown Rx 5mg-325mg #20 tabs Allergy/AdvReac Type Severity Reaction Status Date / Time No Known Allergies Allergy Verified 11/26/17 09:31 Social History Smoking Status: Former smoker Vital Signs Vital Signs Vital Signs: 12/01/24 13:12 Temperature 96.0 F L Temperature Source Temporal Pulse Rate 74 Respiratory Rate 18 Blood Pressure 153/81 H Blood Pressure Mean 105 Blood Pressure Source Monitor Blood Pressure Position Semi-Fowlers Blood Pressure Location Right Arm Oxygen Delivery Method Room Air Physical Exam Const alert, oriented x3 and no apparent distress General Appearance: cooperative and comfortable HEENT normocephalic, head/scalp atraumatic, hearing grossly normal bilaterally, external ears normal and external nose normal Eyes General Eye: normal appearance of both eyes Neck General: normal visual inspection Resp Effort and Inspection: able to speak in complete sentences; Negative for labored, grunting or stridor Cardio Rate: regular rate Peripheral Pulses: posterior tibial pulses present and dorsalis pedis pulses present Extremity Extremity Narrative: Trace edema bilateral lower extremities; spider veins bilaterally without any prominent larger varicosities, no significant hemosiderin deposition or lipodermatosclerosis. Skin Wound Narrative: R posterior calf ulceration with red/pink granular base with small amount of bioburden/slough. There is mild erythema around the edges of (more content not included)... Normal [facility] CT CARDIAC SCORING WO IV CON TRASTon 11-03-2024 CT CARDIAC SCORING WO IV CONTRAST Interpreted By: Kenyon Marquez, STUDY: CT CARDIAC SCORING WO IV CONTRAST; 11/03/2024 7:29 am INDICATION: Signs/Symptoms:SEE DX. ,E78.00 Pure hypercholesterolemia, unspecified COMPARISON: None. ACCESSION NUMBER(S): [id number] ORDERING CLINICIAN: ABIMAEL ELIZABETH TECHNIQUE: Using prospective ECG gating, CT scan of the coronary arteries was performed without intravenous contrast. Coronary calcium scoring was performed according to the method of Agatston. FINDINGS: The score and distribution of calcium in the coronary arteries is as follows: LM 0 LAD 0 LCx 0 RCA 0 Total 0 The visualized ascending thoracic aorta is borderline dilated at 3.9 cm. The heart is normal in size. No pericardial effusion is present. No gross evidence of mediastinal or hilar lymphadenopathy or masses is identified. The visualized segments of the lungs are normally expanded. The visualized subdiaphragmatic structures appear intact. IMPRESSION: 1. Coronary artery calcium score of 0*. *Coronary artery calcium scoring may be helpful in predicting the risk for future coronary heart disease events. According to the [employer] Clinical Expert Consensus Task Force, such testing provides important prognostic information in patients with more than one coronary heart disease risk factor. The coronary artery calcium score correlates with the annual risk of a non-fatal myocardial infarction or coronary heart disease . Coronary artery score Annual Risk 0-99 0.4% 100-399 1.3% >400 2.4% These three breakpoints correspond to lower, intermediate and high risk states for future coronary events. Such information should be used, along with appropriate clinical judgment, to make decisions regarding the intensity of risk factor management strategies to treat blood lipids and to modify other non-lipid coronary risk factors. Reference: William P et al. Circulation. 2007; 115:402-426 MACRO: None Signed by: Kenyon Marquez 11/04/2024 12:56 PM Dictation workstation: [id number] [facility] Culture, Anaerobic Any Sourc dee 10-31-2024 CUAN No growth in 5 days. Normal [facility] Comment on above: Performed By: #### M 100.4001, M100.2000, M100.3000 ####[facility] [address] [place], [address] Gram Stainon 10-27-2024 GS Gram Stain No organisms seen No cells seen Normal [facility] Comment on above: Performed By: #### M 100.4001, M100.2000, M100.3000 #### [facility] Laboratory [address] [place], [address] Wound Cultureon 10-27-2024 WC No growth aerobically. Normal [facility] Comment on above: Performed By: #### M 100.4001, M100.2000, M100.3000 ####[facility] [address] [place], [address] Anaerobic cultureOrdered By: Chacha Dunham on 10-26-2024 Bacteria identified Anaer cx Nom (Unsp spec) No growth in 5 days. [facility] Gram stainOrdered By: Chacha gomez on 10-26-2024 Microscopic observation Gram stain Nom (Unsp spec) [facility] Wound Ctr History AND Physic cam 10-05-2024 Wound Ctr History & Physical [facility] [address] [place] [address] H P Exam - Wound Care 10/05/24 1210 MR#: [id number] Acct: [id number] Name: STEPHANE TORIBIO Adamaris Rep #: [id number] : 1960 63 From: Chacha Dunham NP 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 Abimael Elizabeth, DO Status:REG RCR Location: History of Present Illness Date of Service: 10/05/24 Chief Complaint: Right calf nonhealing wound History of Wound: This is a 63-year-old white male who states when he was a teenager he was in [place] and got a thorn in his right calf and over the years part of it had come out but he feels like it is never healed. Though then he says about 3 months ago he felt that this really developed into something and now he wants to have a total knee and they will not touch him until he gets this taking care of. It is a scabbed area with some erythema around it it is sore to palpate and pressing down hard no foreign body can be felt by palpation. Patient has the certain insurance that were not allowed to debride on the first visit we can only look and see. [facility] Home Medications ???Medication ???Instructions ???Recorded ???Last Taken ???Type Lactobacillus 1 ea PO DAILY 11/26/17 Unknown His tory 41-B.animalis,bifid-FOS 111 mg (25 billion cell) capsule (Ultimate Probiotic-10) aspirin 81 mg chewable tablet 81 mg PO DAILY@0800 11/26/17 Unkno wn History cholecalciferol (vitamin D3) 25 1,000 unit PO DAILY 11/26/17 Unkno wn History mcg (1,000 unit) capsule (Vitamin D3) esomeprazole magnesium 40 mg 40 mg PO DAILY 11/26/17 12/03/17 0 4:45 History capsule,delayed release (Nexium) 40 MG lidocaine-aloe vera 0.5 % topical 227 g TP PRN PRN CREAM 11/26/17 U nknown History gel lisinopril 20 mg tablet 20 mg PO DAILY 11/26/17 12/03/17 0 4:45 History 20 MG loratadine 10 mg tablet (Allergy 10 mg PO DAILY 11/26/17 Unknown Hi story Relief (loratadine)) melatonin 5 mg capsule 5 mg PO QHS 11/26/17 Unknown Histo ry mometasone 50 mcg/actuation nasal 2 spray DAILY 11/26/17 Unknown Hi story spray (Nasonex) montelukast 10 mg tablet 10 mg PO DAILY 11/26/17 Unknown Hi story naproxen 250 mg tablet 250 mg PO BID 11/26/17 Unknown His tory omega-3 1,050 la-ahb-kax-dpa-fish 1 ea PO DAILY 11/26/17 Unknown Hi story oil 1,200 mg capsule ([place]-3 2100) sertraline 25 mg tablet (Zoloft) 25 mg PO DAILY 11/26/17 Unknown Hi story tamsulosin 0.4 mg capsule 0.4 mg PO DAILY 11/26/17 Unknown H istory vitamin B comp and C no.3 15 mg-10 1 ea PO DAILY 11/26/17 Unknown H istory mg-50 mg-5 mg-300 mg capsule (B Complex Plus Vitamin C) hydrocodone-acetaminophen 5-325mg 1 ea PO Q6H PRN PRN Pain 5 days 0 12/03/17 Unknown Rx 5mg-325mg #20 tabs Allergy/AdvReac Type Severity Reaction Status Date / Time No Known Allergies Allergy Verified 11/26/17 09:31 Social History Smoking Status: Former smoker ROS Constitutional Constitutional: Reports systems reviewed and no addt'l complaints, except as documented Eyes Eyes: Reports systems reviewed and no addt'l complaints, except as documented ENT HEENT: Reports systems reviewed and no addt'l complaints, except as documented Cardiovascular Cardiovascular: Reports systems reviewed and no addt'l complaints, except as documented Respiratory/Chest Respiratory/Chest: Reports systems reviewed and no addt'l complaints, except as documented Gastrointestinal Gastrointestinal: Reports systems reviewed and no addt'l complaints, except as documented Genitourinary Genitourinary: Reports systems reviewed and no addt'l complaints, except as documented Musculoskeletal Musculoskeletal: Reports systems reviewed and no addt'l complaints, except as documented Integumentary Integumentary: Reports wounds Neurologic Neurologic: Reports systems reviewed and no addt'l complaints, except as documented Psychiatric Psychiatric: Reports systems reviewed and no addt'l complaints, except as documented Endocrine Endocrinology: Reports systems reviewed and no addt'l complaints, except as documented Hematologic/Lymphatic Hematologic/Lymphatic: Reports systems reviewed and no addt'l complaints, except as documented Allergic/Immunologic Allergic/Immunologic: Reports systems reviewed and no addt'l complaints, except as documented Vital Signs Vital Signs Vital Signs: 10/05/24 10:26 Temperature 97.6 F L Temperature Source Temporal Pulse Rate 61 Respiratory Rate 18 Blood Pressure 139/84 H Blood Pressure Mean 102 Blood Pressure Source Monitor Blood Pressure Position Sitting Blood Pressure Location Right Arm Oxygen Delivery Method Room Air Physical Exam Const oriented x3 General Appearance: cooperative Exam Limitations: no limitat (more content not included)... Normal [facility] Absolute lymphocyte countOrd ered By: Suleiman Toribio on 08-25-2024 Lymphocytes Auto (Unsp spec) [#/Vol] 2.11 10*3/uL 0.83-4.51 [facility] Absolute neutrophil countOrd ered By: Suleiman Toribio on 08-25-2024 Neutrophils (Bld) [#/Vol] 2.8 10*3/uL 2.0-7.7 [facility] Anion gap in Serum or Plasma Ordered By: Suleiman Toribio on 08-25-2024 Anion gap [Moles/Vol] 11 mmol/L 08-25 [facility] Automated lymphocyte count a s percentage of total leukocytesOrdered By: Suleiman Toribio on 08-25-2024 Lymphocytes/100 WBC Auto (Unsp spec) 38.8 % [facility] BUN/creatinine ratioOrdered By: Suleiman Toribio on 08-25-2024 Urea nitrogen/Creatinine [Mass ratio] 15.6 mg/mg - [facility] Basic Metabolic Profile (BMP )on 08-25-2024 BUN/CRE 15.6 RATIO Normal 01-30 [facility] Comment on above: Performed By: #### L 100.0100, L500.2500 ####[facility] [address] [place], [address] Calcium [Mass/Vol] 9.6 mg/dL Normal 7.6-11.0 [facility] Comment on above: Performed By: #### L 100.0100, L500.2500 ####[facility] [address] [place], [address] Chloride [Moles/Vol] 106 mmol/L Normal 98-108 [facility] Comment on above: Performed By: #### L 100.0100, L500.2500 ####[facility] [address] [place], [address] CO2 [Moles/Vol] 21.8 mmol/L Normal 21.0-32.0 [facility] Comment on above: Performed By: #### L 100.0100, L500.2500 ####[facility] [address] [place], [address] Creatinine [Mass/Vol] 1.24 mg/dL High 0.70-1.20 [facility] Comment on above: Performed By: #### L 100.0100, L500.2500 ####[facility] [address] [place], [address] GAP 11 Normal 5-15 [facility] Comment on above: Performed By: #### L 100.0100, L500.2500 ####[facility] [address] [place], [address] GFR/1.73 sq M.predicted among non-blacks MDRD (S/P/Bld) [Vol rate/Area] 65 mL/min/{1.73_m2} Normal >60 [facility] Comment on above: Result Comment: mL/m in/1.73m2 CKD-EPI Creatinine Equation (2020) Performed By: #### L 100.0100, L500.2500 ####[facility] [address] [place], [address] Glucose [Mass/Vol] 113 mg/dL High 70-99 [facility] Comment on above: Performed By: #### L 100.0100, L500.2500 ####[facility] [address] [place], [address] Potassium [Moles/Vol] 4.3 mmol/L Normal 3.3-5.1 [facility] Comment on above: Performed By: #### L 100.0100, L500.2500 ####[facility] [address] [place], [address] Sodium [Moles/Vol] 139 mmol/L Normal 133-145 [facility] Comment on above: Performed By: #### L 100.0100, L500.2500 ####[facility] [address] [place], [address] Urea nitrogen [Mass/Vol] 19 mg/dL Normal 4-19 [facility] Comment on above: Performed By: #### L 100.0100, L500.2500 ####[facility] [address] [place], [address] Basophil percentageOrdered B y: Suleiman Toribio on 08-25-2024 Basophils/100 WBC (Bld) 0.6 % 0-1 [facility] CBC W/Diff, Automatedon 08-11 Absolute Lymph 2.11 X10 3/uL Normal 0.83-4.51 [facility] Comment on above: Performed By: #### L 100.0100, L500.2500 ####[facility] [address] [place], [address] Absolute Neut 2.8 X10 3/uL Normal 2.0-7.7 [facility] Comment on above: Performed By: #### L 100.0100, L500.2500 ####[facility] [address] [place], [address] Basophils/100 WBC (Bld) 0.6 % Normal 0-1 [facility] Comment on above: Performed By: #### L 100.0100, L500.2500 ####[facility] [address] [place], [address] Eosinophils/100 WBC (Bld) 2.6 % Normal 0-5 [facility] Comment on above: Performed By: #### L 100.0100, L500.2500 ####[facility] [address] [place], [address] Erythrocyte distribution width (RBC) [Ratio] 11.8 % Normal 11.6-14.6 [facility] Comment on above: Performed By: #### L 100.0100, L500.2500 ####[facility] [address] [place], [address] Hematocrit (Bld) [Volume fraction] 39.4 % Low 40-54 [facility] Comment on above: Performed By: #### L 100.0100, L500.2500 ####[facility] [address] [place], [address] Hemoglobin (Bld) [Mass/Vol] 13.1 g/dL Normal 13.0-16.5 [facility] Comment on above: Performed By: #### L 100.0100, L500.2500 ####[facility] [address] [place], [address] IG% 0.200 Normal 0.0-0.9 [facility] Comment on above: Result Comment: IG% - Immature Granulocytes (promyelocytes, myelocytes and metamyelocytes) > 1% indicates that a LEFT SHIFT is Present. Performed By: #### L 100.0100, L500.2500 ####[facility] [address] [place], [address] Lymphocytes/100 WBC (Bld) 38.8 % Normal 19-41 [facility] Comment on above: Performed By: #### L 100.0100, L500.2500 ####[facility] [address] [place], [address] MCH (RBC) [Entitic mass] 29.3 pg Normal 27.0-32.0 [facility] Comment on above: Performed By: #### L 100.0100, L500.2500 ####[facility] [address] [place], [address] MCHC (RBC) [Mass/Vol] 33.2 g/dL Normal 32-36 [facility] Comment on above: Performed By: #### L 100.0100, L500.2500 ####[facility] [address] [place], [address] MCV (RBC) [Entitic vol] 88.1 fL Normal 80-94 [facility] Comment on above: Performed By: #### L 100.0100, L500.2500 ####[facility] [address] [place], [address] Monocytes/100 WBC (Bld) 6.8 % Normal 0-10 [facility] Comment on above: Performed By: #### L 100.0100, L500.2500 ####[facility] [address] [place], [address] Neutrophils/100 WBC (Bld) 51.0 % Normal 47-70 [facility] Comment on above: Performed By: #### L 100.0100, L500.2500 ####[facility] [address] [place], [address] Nucleated RBC (Bld) [#/Vol] 0 10*3/uL Normal 0-5 [facility] Comment on above: Performed By: #### L 100.0100, L500.2500 ####[facility] [address] [place], [address] Platelet mean volume (Bld) [Entitic vol] 10.0 fL Normal 6.2-12.0 [facility] Comment on above: Performed By: #### L 100.0100, L500.2500 ####[facility] [address] [place], [address] Platelets (Bld) [#/Vol] 214 10*3/uL Normal 150-450 [facility] Comment on above: Performed By: #### L 100.0100, L500.2500 ####[facility] [address] [place], [address] RBC (Bld) [#/Vol] 4.47 10*6/uL Low 4.6-6.2 [facility] Comment on above: Performed By: #### L 100.0100, L500.2500 ####[facility] [address] [place], [address] RDW SD 37.8 fl Normal 35.1-43.9 [facility] Comment on above: Performed By: #### L 100.0100, L500.2500 ####[facility] [address] [place], [address] WBC (Bld) [#/Vol] 5.4 10*3/uL Normal 4.4-11.0 [facility] Comment on above: Performed By: #### L 100.0100, L500.2500 ####[facility] [address] [place], [address] Carbon dioxide, total [Moles /volume] in Central venous bloodOrdered By: Suleiman Toribio on 08-25-2024 CO2 [Moles/Vol] 21.8 mmol/L 21.0-32.0 [facility] Chloride assayOrdered By: St viola Toribio on 08-25-2024 Chloride [Moles/Vol] 106 mmol/L 98-108 [facility] Eosinophil percentageOrdered By: Suleiman Toribio on 08-25-2024 Eosinophils/100 WBC (Bld) 2.6 % 0-5 [facility] Erythrocyte distribution wid th ratioOrdered By: Suleiman Toribio on 08-25-2024 Erythrocyte distribution width (RBC) [Ratio] 11.8 % 11.6-14.6 [facility] Erythrocyte distribution wid th standard deviationOrdered By: Suleiman Toribio on 08-25-2024 Erythrocyte distribution width (RBC) [Ratio] 37.8 fl 35.1-43.9 [facility] Glomerular filtration rate ( GFR) estimation/1.73 sq m using serum, plasma, or whole bOrdered By: Suleiman Toribio on 08-25-2024 GFR/1.73 sq M.predicted among non-blacks MDRD (S/P/Bld) [Vol rate/Area] 65 mL/min/{1.73_m2} >60 [facility] Comment on above: mL/min/1.73m2 CKD-EP I Creatinine Equation (2020) Hematocrit Auto (Bld) [Volum e fraction]Ordered By: Suleiman Toribio on 08-25-2024 Hematocrit (Bld) [Volume fraction] 39.4 % Low 40-54 [facility] Hemoglobin measurementOrdere d By: Suleiman Toribio on 08-25-2024 Hemoglobin (Bld) [Mass/Vol] 13.1 g/dL 13.0-16.5 [facility] Immature granulocytes/100 WB C Auto (Bld)Ordered By: Suleiman Toribio on 08-25-2024 Immature granulocytes/100 WBC (Bld) 0.200 % 0.0-0.9 [facility] Comment on above: IG% - Immature Granu locytes (promyelocytes, myelocytes and metamyelocytes) > 1% indicates that a LEFT SHIFT is Present. MCV (mean corpuscular volume ) determinationOrdered By: Suleiman Toribio on 08-25-2024 MCV (RBC) [Entitic vol] 88.1 fL 80-94 [facility] Mean corpuscular hemoglobin (MCH) determinationOrdered By: Suleiman Toribio on 08-25-2024 MCH (RBC) [Entitic mass] 29.3 pg 27.0-32.0 [facility] Mean corpuscular hemoglobin concentration (MCHC) determinationOrdered By: Suleiman Toribio on 08-25-2024 MCHC (RBC) [Mass/Vol] 33.2 g/dL 32-36 [facility] Mean platelet volume determi nationOrdered By: Suleiman Toribio on 08-25-2024 Platelet mean volume (Bld) [Entitic vol] 10.0 fL 6.2-12.0 [facility] Monocyte percentageOrdered B y: Suleiman Toribio on 08-25-2024 Monocytes/100 WBC (Bld) 6.8 % 0-10 [facility] Neutrophil percentageOrdered By: Suleiman Toribio on 08-25-2024 Neutrophils/100 WBC (Bld) 51.0 % 47-70 [facility] Nucleated red blood cell per centageOrdered By: Suleiman Toribio on 08-25-2024 Nucleated RBC/100 WBC (Bld) [Ratio] 0 % 0-5 [facility] Platelet countOrdered By: St viola Toribio on 08-25-2024 Platelets (Bld) [#/Vol] 214 10*3/uL 150-450 [facility] Potassium measurement (mass/ volume)Ordered By: Suleiman Toribio on 08-25-2024 Potassium (Unsp spec) [Mass/Vol] 4.3 mmol/L 3.3-5.1 [facility] RBC Auto (Bld) [#/Vol]Ordere d By: Suleiman Toribio on 08-25-2024 RBC (Bld) [#/Vol] 4.47 10*6/uL Low 4.6-6.2 [facility] Serum creatinine measurement (mass/volume)Ordered By: Suleiman Toribio on 08-25-2024 Creatinine [Mass/Vol] 1.24 mg/dL High 0.70-1.20 [facility] Serum glucose measurement (m ass/volume)Ordered By: Suleiman Toribio on 08-25-2024 Glucose [Mass/Vol] 113 mg/dL High 70-99 [facility] Serum or plasma calcium abhay urement (mass/volume)Ordered By: Suleiman Toribio on 08-25-2024 Calcium [Mass/Vol] 9.6 mg/dL 7.6-11.0 [facility] Serum or plasma urea nitroge n measurement (mass/volume)Ordered By: Suleiman Toribio on 08-25-2024 Urea nitrogen [Mass/Vol] 19 mg/dL 4-19 [facility] Sodium levelOrdered By: Tavon Toribio on 08-25-2024 Sodium [Moles/Vol] 139 mmol/L 133-145 [facility] White blood cell (WBC) count Ordered By: Suleiman Toribio on 08-25-2024 WBC (Bld) [#/Vol] 5.4 10*3/uL 4.4-11.0 [facility] Cardiac event monitor (14 da ys)on 07-04-2024 The patient wore continuous telemetry for 10 days 9 hours and 30 minutes. The rhythm was sinus averaging 74 bpm with a minimum of 53 and a maximum of 145. Symptoms of fatigue and flutter or skipped beats corresponded to sinus rhythm with premature atrial contractions and an occasional PVC. There was an automatic transmission for a 6 beat run of nonsustained ventricular tachycardia at 225 bpm. There were 414 PVCs for a burden of less than 1%. The PAC burden was 1%. Summary: Continuous telemetry demonstrates sinus rhythm averaging 74 bpm with a 1% PAC burden. CV EPIPHANY Cardiac event monitor (14 da ys)Ordered By: Lucian Flores on 07-04-2024 [facility] Work Phone: [phone] 05-17-2024 36 S: Patient's SO Melvin castro [facility] today, requesting antibiotics on the patient's behalf. B: Patient seen in office today by Dr. Elizabeth for shortness of breath on exertion. Encounter note states ECG was unremarkable, CXR ordered, plan for doxycycline and cyclobenzaprine pending results. Patient is present for call. Allergies and pharmacy verified. A: SANDEEP Ariza reports patient has shortness of breath on exertion, unchanged since office visit. Annita asking for antibiotics, or states she will take patient to ED. R: On-call provider paged, who states Dr. Elizabeth is still in office and will confer with him directly. Reason for Disposition [1] Caller requesting NON-URGENT health information AND [2] PCP's office is the best resource Answer Assessment - Initial Assessment Questions 1. REASON FOR CALL: What is the main reason for your call? or How can I best help you? Will patient receive antibiotics? 2. SYMPTOMS : Do you have any symptoms? Shortness of breath on exertion. 3. OTHER QUESTIONS: Do you have any other questions? No. Protocols used: Information Only Call - No [id number] Normal [facility] SHS XR Chest 2 Viewson 5 Atelectasis in the l eft lower lobe. No other acute abnormality. Report Dictated on Electronically Signed By: Vlad Santiago MD Electronically Signed Date/Time: 05/17/2024 12:00 PM [facility] [employer] [facility] 1960 [id number] Exam Date/Time: 05/17/2024 10:30 Procedure: XR CHEST 2 VIEWS Ordering Provider: ELIZABETH JOSHUA Reason For Exam: r06.09 r05.1 CHEST: CLINICAL INDICATION: r06.09 r05.1. Dyspnea. Cough TECHNIQUE: PA and Lateral COMPARISON: None FINDINGS: The heart and mediastinum are normal. Subsegmental atelectasis in the left lower lobe. No other consolidation. There is no evidence for pleural effusion. Degenerative change of the thoracic spine is noted. [facility] Vlad Santiago MD - 05/17/2024 Patient Name: STEPHANE [facility]IBIO [facility] 1960 [id number] Exam Date/Time: 05/17/2024 10:30 Procedure: XR CHEST 2 VIEWS Ordering Provider: ELIZABETH JOSHUA Reason For Exam: r06.09 r05.1 CHEST: CLINICAL INDICATION: r06.09 r05.1. Dyspnea. Cough TECHNIQUE: PA and Lateral COMPARISON: None FINDINGS: The heart and mediastinum are normal. Subsegmental atelectasis in the left lower lobe. No other consolidation. There is no evidence for pleural effusion. Degenerative change of the thoracic spine is noted. IMPRESSION: Atelectasis in the left lower lobe. No other acute abnormality. Report Dictated on Electronically Signed By: Vlad Santiago MD Electronically Signed Date/Time: 05/17/2024 12:00 PM EST [facility] Radiology Study observation (narrative) [facility] XR Chest 2 ViewsOrdered By: Vlad Santiago on 05-17-2024 [facility] Work Phone: PSA Total (Screening)on Interpretation and review of laboratory results Abnormal [facility] Prostate specific Ag [Mass/Vol] 5.48 ng/mL High < OR = 4.00 [facility] Comment on above: The total PSA value from this assay system is standardized against the WHO standard. The test result will be approximately 20% lower when compared to the equimolar-standardized total PSA (Jamila Adriana). Comparison of serial PSA results should be interpreted with this fact in mind. This test was performed using the Siemens chemiluminescent method. Values obtained from different assay methods cannot be used interchangeably. PSA levels, regardless of value, should not be interpreted as absolute evidence of the presence or absence of disease. [facility] XR Lumbar spine Views W flex ion and W extensionon 05-05-2023 Moderate lumbar degenerative spondylosis most pronounced at L2-L3 level. No vertebral subluxation with motion. 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 Report Dictated on Electronically Signed By: Aj Arevalo DO Electronically Signed Date/Time: 05/05/2023 9:35 AM EST [facility] Patient Name: STEPHANE TORIBIO : 1960 Exam Date/Time: 05/01/2023 08:55 Procedure: XR LUMBAR SPINE 4-5 VIEW Ordering Provider: ELIZABETH JOSHUA Reason For Exam: BACK PAIN LUMBAR SPINE WITH FLEXION/EXTENSION VIEWS: CLINICAL INDICATION: Low back pain. TECHNIQUE: AP, lateral and coned-down L5-S1. Flexion and extension lateral views were included. COMPARISON: None. FINDINGS: There is straightening of lumbar spine. Disc space narrowing at L2-L3 level with subchondral sclerosis and osteophytes. There are endplate osteophytes at all lumbar levels. The pedicles are congenitally short. There is no vertebral subluxation. The lumbar vertebrae demonstrate no evidence for wedge fracture or compression deformity. The pedicles and sacroiliac joints are unremarkable. [facility] Aj Arevalo DO - 05/05/2023 Patient Name: STEPHANE TORIBIO : 1960 Exam Date/Time: 05/01/2023 08:55 Procedure: XR LUMBAR SPINE 4-5 VIEW Ordering Provider: ELIZABETH JOSHUA Reason For Exam: BACK PAIN LUMBAR SPINE WITH FLEXION/EXTENSION VIEWS: CLINICAL INDICATION: Low back pain. TECHNIQUE: AP, lateral and coned-down L5-S1. Flexion and extension lateral views were included. COMPARISON: None. FINDINGS: There is straightening of lumbar spine. Disc space narrowing at L2-L3 level with subchondral sclerosis and osteophytes. There are endplate osteophytes at all lumbar levels. The pedicles are congenitally short. There is no vertebral subluxation. The lumbar vertebrae demonstrate no evidence for wedge fracture or compression deformity. The pedicles and sacroiliac joints are unremarkable. IMPRESSION: Moderate lumbar degenerative spondylosis most pronounced at L2-L3 level. No vertebral subluxation with motion. 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 Report Dictated on Electronically Signed By: Aj Arevalo DO Electronically Signed Date/Time: 05/05/2023 9:35 AM EST [facility] XR Lumbar spine Views W flex ion and W extensionOrdered By: Aj Arevalo on 05-05-2023 [facility] Work Phone: US Retroperitoneumon 1. No hydronephrosis 2. Renal size: RIGHT: 10.8 x 5.8 x 5.5 cm. LEFT: 12.6 x 6.6 x 5.8 cm. Two cortical echogenic lesions seen measuring 9 mm and 8 mm in size (one 8 mm lesion was seen in 2019), most compatible with AML. Two small cysts are identified measuring 8 mm and 12 mm. 3. Prostatic enlargement with what appears to be mild generalized urinary bladder wall thickening for degree of distention. Report Dictated on Electronically Signed By: Toni Rangel MD Electronically Signed Date/Time: 05/03/2023 12:40 PM [facility] [employer] [facility] Patient Name: STEPHANE TORIBIO : 1960 Exam Date/Time: 05/01/2023 08:20 Procedure: US RETROPERITONEAL Ordering Provider: ELIZABETH JOSHUA Reason For Exam: D41.02 CLINICAL INFORMATION: Left renal neoplasm history Sonogram of the kidneys and bladder is performed. Comparison study 2018, 2017 The renal cortical echogenicity is within normal limits. There are no large masses that distort the renal contours. No hydronephrosis or shadow from calculus is seen. There are no perinephric fluid collections. The urinary bladder is nondistended. [facility] Toni Rangel MD - 05/03/2023 [facility] Name: STEPHANE [facility]IBIO [facility] 1960 [id number] Exam Date/Time: 05/01/2023 08:20 Procedure: US RETROPERITONEAL Ordering Provider: ELIZABETH JOSHUA Reason For Exam: D41.02 CLINICAL INFORMATION: Left renal neoplasm history Sonogram of the kidneys and bladder is performed. Comparison study 2018, 2017 The renal cortical echogenicity is within normal limits. There are no large masses that distort the renal contours. No hydronephrosis or shadow from calculus is seen. There are no perinephric fluid collections. The urinary bladder is nondistended. IMPRESSION: 1. No hydronephrosis 2. Renal size: RIGHT: 10.8 x 5.8 x 5.5 cm. LEFT: 12.6 x 6.6 x 5.8 cm. Two cortical echogenic lesions seen measuring 9 mm and 8 mm in size (one 8 mm lesion was seen in 2019), most compatible with AML. Two small cysts are identified measuring 8 mm and 12 mm. 3. Prostatic enlargement with what appears to be mild generalized urinary bladder wall thickening for degree of distention. Report Dictated on Electronically Signed By: Toni Rangel MD Electronically Signed Date/Time: 05/03/2023 12:40 PM EST [facility] US RetroperitoneumOrdered By : Toni Rangel on 05-03-2023 [facility] Work Phone: US Retroperitoneumon 024 Radiology Study observation (narrative) [facility] XR Lumbar spine Views W flex ion and W extensionon 05-01-2023 Radiology Study observation (narrative) [facility] PSA, total and freeon 2023 Free PSA [Mass/Vol] 2.2 ng/mL [facility] Free PSA/Total PSA [Mass fraction] 31 % [facility] Comment on above: INTERPRETIVE INFORMA TION: Prostate Specific Antigen, Free Percentage [facility] uses the Stew Free PSA electrochemiluminescent immunoassay method in conjunction with the Stew PSA electrochemiluminescent immunoassay method to determine the free PSA percentage. Values obtained with different assay methods should not be used interchangeably. The free PSA percentage is an aid in distinguishing prostate cancer from benign prostatic conditions in individuals with a prostate age 50 years and older with a total PSA between 3 and 10 ng/mL and negative digital rectal examination findings. Prostatic biopsy is required for the diagnosis of cancer. In patients with total PSA concentrations of 4-10 ng/mL, the probability of finding prostate cancer on needle biopsy by age in years is: %fPSA 50-59 60-69 70 or older 0 - 10% 49% 58% 65% 11 - 18% 27% 34% 41% 19 - 25% 18% 24% 30% Greater than 25% 9% 12% 16% Other factors may help determine the actual risk of prostate cancer in individual patients. Performed By: [facility] [address] [place] [id number] [employer] Marketing Associate: Juventino Narayanan MD, PhD CLIA Number: [id number] Interpretation and review of laboratory results Abnormal [facility] Prostate specific Ag IA [Mass/Vol] 7.2 ng/mL High 0.0 - 4.0 ng/mL [facility] Comment on above: INTERPRETIVE INFORMA TION: Prostate Specific Antigen The Stew PSA electrochemiluminescent immunoassay is used. Results obtained with different test methods or kits cannot be used interchangeably. The Stew PSA method is approved for use as an aid in the detection of prostate cancer when used in conjunction with a digital rectal exam in individuals with a prostate age 50 years and older. The Stew PSA is also indicated for the serial measurement of PSA to aid in the prognosis and management of prostate cancer patients. Elevated PSA concentrations can only suggest the presence of prostate cancer until biopsy is performed. PSA concentrations can also be elevated in benign prostatic hyperplasia or inflammatory conditions of the prostate. PSA is generally not elevated in healthy individuals or individuals with nonprostatic carcinoma. [facility] CBC W Auto Differential pane l (Bld)Ordered By: Margo Bronson on 04-17-2023 Basophils (Bld) [#/Vol] 0.0 10*3/uL 0.0 - 0.2 10*3/uL [facility] Basophils/100 WBC (Bld) 0.5 % 0.0 - 2.0 % [facility] Eosinophils (Bld) [#/Vol] 0.2 10*3/uL 0.0 - 0.5 10*3/uL [facility] Eosinophils/100 WBC (Bld) 2.7 % 1.0 - 6.0 % [facility] Erythrocyte distribution width (RBC) [Ratio] 12.8 % 11.5 - 14.5 % [facility] Hematocrit (Bld) [Volume fraction] 39.9 % Low 40.0 - 52.0 % [facility] Hemoglobin (Bld) [Mass/Vol] 13.1 g/dL 13.0 - 18.0 g/dL [facility] Immature granulocytes (Bld) [#/Vol] 0.0 10*3/uL NINF - 0.0 10*3/uL [facility] Immature granulocytes/100 WBC (Bld) 0.4 % High NINF - 0.0 % [facility] Interpretation and review of laboratory results Abnormal [facility] Lymphocytes (Bld) [#/Vol] 1.9 10*3/uL 1.0 - 4.3 10*3/uL [facility] Lymphocytes/100 WBC (Bld) 33.7 % 20.0 - 40.0 % [facility] MCH (RBC) [Entitic mass] 28.3 pg 26.0 - 34.0 pg [facility] MCHC (RBC) [Mass/Vol] 32.8 % 32.0 - 36.0 % [facility] MCV (RBC) [Entitic vol] 86.2 fL 80.0 - 98.0 fL [facility] Monocytes (Bld) [#/Vol] 0.6 10*3/uL 0.0 - 0.8 10*3/uL [facility] Monocytes/100 WBC (Bld) 9.7 % 2.0 - 10.0 % [facility] Neutrophils (Bld) [#/Vol] 3.0 10*3/uL 1.8 - 7.0 10*3/uL [facility] Neutrophils/100 WBC (Bld) 53.0 % 40.0 - 80.0 % [facility] Platelet mean volume (Bld) [Entitic vol] 10.1 fL 7.4 - 12.4 fL [facility] Comment on above: MPV is a calculated measurement using platelet volume ratio Platelets (Bld) [#/Vol] 216 10*3/uL 140 - 440 10*3/uL [facility] RBC (Bld) [#/Vol] 4.63 10*6/uL 4.40 - 5.90 10*6/uL [facility] WBC (Bld) [#/Vol] 5.7 10*3/uL 3.6 - 10.7 10*3/uL [facility] Comprehensive metabolic 1998 panelon 04-17-2023 Albumin [Mass/Vol] 4.1 g/dL 3.5 - 5.0 g/dL [facility] ALP [Catalytic activity/Vol] 69 U/L 38 - 126 U/L [facility] ALT [Catalytic activity/Vol] 34 U/L 0 - 49 U/L [facility] Anion gap [Moles/Vol] 8 mmol/L 3 - 13 mmol/L [facility] AST [Catalytic activity/Vol] 35 U/L 15 - 46 U/L [facility] Bilirubin [Mass/Vol] 0.4 mg/dL 0.2 - 1 .3 mg/dL [facility] Calcium [Mass/Vol] 9.4 mg/dL 8.4 - 10. 4 mg/dL [facility] Chloride [Moles/Vol] 108 mmol/L High 98 - 10 7 mmol/L [facility] CO2 [Moles/Vol] 24 mmol/L 22 - 30 mmol/L [facility] Creatinine [Mass/Vol] 1.35 mg/dL High 0.66 - 1.25 mg/dL [facility] GFR/1.73 sq M.predicted MDRD (S/P/Bld) [Vol rate/Area] 59.0 mL/min/{1.73_m2} Low - PINF [facility] Comment on above: Calculation based on the Chronic Kidney Disease Epidemiology Collaboration (CKD-EPI) equation refit without adjustment for race Glucose [Mass/Vol] 99 mg/dL 70 - 100 mg/dL [facility] Potassium [Moles/Vol] 4.5 mmol/L 3.5 - 5.1 mmol/L [facility] Protein [Mass/Vol] 7.1 g/dL 6.3 - 8.2 g/dL [facility] Sodium [Moles/Vol] 139 mmol/L 135 - 145 mmol/L [facility] Urea nitrogen [Mass/Vol] 23 mg/dL High 9 - 20 mg/dL [facility] Lipid 1996 panelon Cholesterol [Mass/Vol] 171 mg/dL NINF - 200 mg/dL [facility] Cholesterol in HDL [Mass/Vol] 50 mg/dL 40 - 60 mg/dL [facility] Cholesterol in LDL [Mass/Vol] 104 mg/dL High 0 - <100 [facility] Cholesterol.total/Mary sterol in HDL [Mass ratio] 3 {ratio} [facility] Comment on above: Ref Range: < 3 Low Risk for CHD 3-6 Mod Risk for CHD > 6 High Risk for CHD Triglyceride [Mass/Vol] 86 mg/dL NINF - 150 mg/dL [facility] No Panel Informationon 04-17 Interpretation and review of laboratory results Abnormal [facility] Laboratory - Chemistry and C hemistry - challengeon 12-05-2022 Prostate specific Ag DL <= 0.01 ng/mL [Mass/Vol] 7.44 ug/L [facility] Comment on above: REFERENCE RANGES for PSA: LESS THAN 0.10 ng/mL AFTER RADICAL PROSTATECTOMY. 4.0 ng/mL OR LESS IN HEALTHY MALES WITHOUT PROSTATECTOMY. PSA values obtained with different assay methods or kits cannot be used interchangeably. This test was performed using the [employer]Arch DxI method. PSA, ICMA is not to be used as a diagnostic procedure without confirmation of the diagnosis by another established product or procedure. The lower limit of accurate quantification for this assay is 0.02 ng/mL. PSA values less than 0.02 ng/mL cannot be accurately measured and will be reported as less than 0.02 ng/mL. Specimens with PSA levels below the lower limit of accurate quantification should be considered as negative. In patients with a negative result for post prostatectomy PSA, serial monitoring of PSA levels at regular intervals, along with physical examinations and other tests, may help to detect recurrent prostate cancer. No Panel Informationon 12-05 [facility] PSA Screeningon 05-02-2022 Interpretation and review of laboratory results Abnormal [facility] Prostate specific Ag [Mass/Vol] 4.588 ng/mL High NINF - 4.000 ng/mL [facility] Testing performed on the Hittahem0 using an immunometric methodology. Results obtained by different methods should not be used interchangeably. [facility] CR Shoulder 2+ Views Righton 12-20-2021 CR Shoulder 2+ Views Right Patient Name: STEPHANE TORIBIO Diagnostic Radiology ACCESSION EXAM DATE/TIME PROCEDURE ORDERING PROVIDER [id number] 12/20/2021 16:24 EDT CR Shoulder 2+ Views DO ELIZABETH JOSHUA D Right CPT code 48581 Reason For Exam (CR Shoulder 2+ Views Right) M25.511, Right shoulder pain Report INDICATION: 61-year-old; right shoulder pain; subacromial bursitis of right shoulder; biceps tendinitis on right; right rotator cuff tendinitis. VIEWS: Grashey and axillary view, scapular Y view (four images right shoulder) COMPARISON: None. FINDINGS: The right humeral head cortex is smooth. No evidence for fracture or dislocation of the right shoulder. The AC joint space is within normal limits. The portions the right lung visualized are clear. IMPRESSION: No evidence for fracture or dislocation of the right shoulder, as above. Report Dictated on Final Dictating Physician: MD MCNAMARA JENNIFER R Signed Date and Time: 12/23/2021 12:28 pm Signed by: MD MCNAMARA JENNIFER R Transcribed Date and Time: 12/23/2021 12:29 Normal [facility] Prostatic Specific Ag- Diagn osticon 10-24-2021 Prostatic Specific Ag 4.256 ng/mL Abnormal < 4.000 [facility] Comment on above: Result Comment: Test ing performed on the [employer] Generation 5600 using an immunometric methodology. Results obtained by different methods should not be used interchangeably. Performed By: #### P SA3 #### [facility] [address] [place] [address] [facility]Con 03-01-2020 Erythrocyte distribution width (RBC) [Ratio] 13.1 % 11.5 - 14.5 % [place] Hematocrit (Bld) [Volume fraction] 41.1 % 40 - 52 % [place] Hemoglobin (Bld) [Mass/Vol] 13.6 g/dL 13 - 18 g/dL [place] MCH (RBC) [Entitic mass] 29.5 pg 26 - 34 pg [place] MCHC (RBC) [Mass/Vol] 33.1 % 32 - 36 % [place] MCV (RBC) [Entitic vol] 89.0 fL 80 - 98 fL [place] Platelet mean volume (Bld) [Entitic vol] 7.6 fL 7.4 - 10.4 fL [place] Platelets (Bld) [#/Vol] 238 10*3/uL 140 - 440 10*3/uL [place] RBC (Bld) [#/Vol] 4.61 10*6/uL 4.4 - 5.9 10*6/uL [place] WBC (Bld) [#/Vol] 6.0 10*3/uL 3.6 - 10.7 10*3/uL [place] Test Performed by [facility], [address], [place], [place] [address] [place] Comprehensive Metabolic Pane henny 03-01-2020 Albumin [Mass/Vol] 4.3 g/dL 3.5 - 5 g/dL [place] ALP [Catalytic activity/Vol] 61 U/L 38 - 126 U/L [place] ALT [Catalytic activity/Vol] 22 U/L 0 - 49 U/L [place] Comment on above: The ALT test is perf ormed by an updated assay method. Please note that the reference intervals have been changed and are now sex specific. Anion gap [Moles/Vol] 10 mmol/L [place] AST [Catalytic activity/Vol] 27 U/L 15 - 46 U/L [place] Bilirubin Ql (U) 0.6 mg/dL 0.2 - 1.3 mg/dL [place] Calcium [Mass/Vol] 9.3 mg/dL 8.4 - 10. 4 mg/dL [place] Chloride [Moles/Vol] 107 mmol/L 98 - 10 7 mmol/L [place] CO2 [Moles/Vol] 25 mmol/L 22 - 30 mmol/L [place] Creatinine [Mass/Vol] 1.35 mg/dL High 0.52 - 1.25 mg/dL [place] EGFR IF NonAfrican Czech 56.5 mL/min Abnormal >60 [place] Comment on above: KDIGO guidelines pro vide the following GFR categories: Stage GFR(ml/min/1.73 m2) Terms G1 >=90 Normal or high G2 60-89 Mildly decreased* G3a 45-59 Mildly to moderately decreased G3b 30-44 Moderately to severely decreased G4 15-29 Severely decreased G5 <15 Kidney failure *Relative to young adult level. In the absence of evidence of kidney damage, neither GFR category G1 nor G2 fulfill the criteria for CKD. The CKD-EPI equation is validated in individuals 18 years of age and older. Currently the best equation for estimating glomerular filtration rate (GFR) from serum creatinine in children is the Bedside Parks equation. It is less accurate in patients with extremes of muscle mass, restriction of dietary protein, ingestion of creatine, extra-renal metabolism of creatinine, or treatment with medications that affect renal tubular creatinine secretion. GFR/1.73 sq M predicted among blacks MDRD (S/P/Bld) [Vol rate/Area] 65.5 mL/min/{1.73_m2} >60 [place] Glucose [Mass/Vol] 85 mg/dL 70 - 100 mg/dL [place] Interpretation and review of laboratory results Abnormal [place] Potassium [Moles/Vol] 4.6 mmol/L 3.5 - 5.1 mmol/L [place] Protein [Mass/Vol] 7.5 g/dL 6.3 - 8.2 g/dL [place] Sodium [Moles/Vol] 141 mmol/L 135 - 145 mmol/L [place] Urea nitrogen [Mass/Vol] 21 mg/dL High 7 - 20 mg/dL [place] Test Performed by [facility], [address], [place], [place] [address] [place] CBC Auto Differentialon 06-0 Absolute Baso # 0.0 10*3/uL 0 - 0.2 10*3/uL [place] Absolute Neut # 2.7 10*3/uL 1.8 - 7 10*3/uL [place] Basophils/100 WBC (Bld) 0.6 % 0 - 2 % [place] Eosinophils (Bld) [#/Vol] 0.1 10*3/uL 0 - 0.5 10*3/uL [place] Eosinophils/100 WBC (Bld) 2.3 % 1 - 6 % [place] Erythrocyte distribution width (RBC) [Ratio] 13.1 % 11.5 - 14.5 % [place] Granulocytes/100 WBC (Bld) 46.3 % 40 - 80 % [place] Hematocrit (Bld) [Volume fraction] 40.8 % 40 - 52 % [place] Hemoglobin (Bld) [Mass/Vol] 13.9 g/dL 13 - 18 g/dL [place] Interpretation and review of laboratory results Abnormal [place] Lymphocytes (Bld) [#/Vol] 2.4 10*3/uL 1 - 4.3 10*3/uL [place] Lymphocytes/100 WBC (Bld) 41.9 % High 20 - 40 % [place] MCH (RBC) [Entitic mass] 29.6 pg 26 - 34 pg [place] MCHC (RBC) [Mass/Vol] 34.1 % 32 - 36 % [place] MCV (RBC) [Entitic vol] 86.9 fL 80 - 98 fL [place] Monocytes (Bld) [#/Vol] 0.5 10*3/uL 0 - 0.8 10*3/uL [place] Monocytes/100 WBC (Bld) 8.9 % 2 - 10 % [place] Platelet mean volume (Bld) [Entitic vol] 7.8 fL 7.4 - 10.4 fL [place] Platelets (Bld) [#/Vol] 207 10*3/uL 140 - 440 10*3/uL [place] RBC (Bld) [#/Vol] 4.69 10*6/uL 4.4 - 5.9 10*6/uL [place] WBC (Bld) [#/Vol] 5.8 10*3/uL 3.6 - 10.7 10*3/uL [place] Test Performed by [facility], [address] , [address] Comprehensive Metabolic Pane henny 09-20-2019 Albumin [Mass/Vol] 4.3 g/dL 3.5 - 5 g/dL [place] ALP [Catalytic activity/Vol] 68 U/L 38 - 126 U/L [place] ALT [Catalytic activity/Vol] 29 U/L 0 - 49 U/L [place] Comment on above: The ALT test is perf ormed by an updated assay method. Please note that the reference intervals have been changed and are now sex specific. Anion gap [Moles/Vol] 8 mmol/L [place] AST [Catalytic activity/Vol] 30 U/L 15 - 46 U/L [place] Bilirubin Ql (U) 0.8 mg/dL 0.2 - 1.3 mg/dL [place] Calcium [Mass/Vol] 9.8 mg/dL 8.4 - 10. 4 mg/dL [place] Chloride [Moles/Vol] 106 mmol/L 98 - 10 7 mmol/L [place] CO2 [Moles/Vol] 25 mmol/L 22 - 30 mmol/L [place] Creatinine [Mass/Vol] 1.3 mg/dL High 0.52 - 1.25 mg/dL [place] EGFR IF NonAfrican [place] 59.3 mL/min Abnormal >60 [place] Comment on above: KDIGO guidelines pro vide the following GFR categories: Stage GFR(ml/min/1.73 m2) Terms G1 >=90 Normal or high G2 60-89 Mildly decreased* G3a 45-59 Mildly to moderately decreased G3b 30-44 Moderately to severely decreased G4 15-29 Severely decreased G5 <15 Kidney failure *Relative to young adult level. In the absence of evidence of kidney damage, neither GFR category G1 nor G2 fulfill the criteria for CKD. The CKD-EPI equation is validated in individuals 18 years of age and older. Currently the best equation for estimating glomerular filtration rate (GFR) from serum creatinine in children is the Bedside Parks equation. It is less accurate in patients with extremes of muscle mass, restriction of dietary protein, ingestion of creatine, extra-renal metabolism of creatinine, or treatment with medications that affect renal tubular creatinine secretion. GFR/1.73 sq M predicted among blacks MDRD (S/P/Bld) [Vol rate/Area] 68.8 mL/min/{1.73_m2} >60 [place], [place] Glucose [Mass/Vol] 113 mg/dL High 70 - 100 mg/dL [place] Potassium [Moles/Vol] 4.6 mmol/L 3.5 - 5.1 mmol/L [place] Protein [Mass/Vol] 7.3 g/dL 6.3 - 8.2 g/dL [place] Sodium [Moles/Vol] 139 mmol/L 135 - 145 mmol/L [place] Urea nitrogen [Mass/Vol] 26 mg/dL High 7 - 20 mg/dL [place] Lipid Panelon 09-20-2019 Cholesterol [Mass/Vol] 186 mg/dL <200 [place] Cholesterol in HDL [Mass/Vol] 41 mg/dL 40 - 60 mg/dL [place] Cholesterol in LDL [Mass/Vol] 110 mg/dL Abnormal <100 [place] Cholesterol.total/Mary sterol in HDL [Mass ratio] 5 {ratio} [place], [place] Comment on above: Ref Range: < 3 Low Risk for CHD 3-6 Mod Risk for CHD > 6 High Risk for CHD Triglyceride [Mass/Vol] 173 mg/dL Abnormal <150 [place] Otheron 09-20-2019 Interpretation and review of laboratory results Abnormal [place], [place] Test Performed by [place] [id number] [place] [address] Psa screeningon 09-20-2019 Test Performed by [facility], [facility] [place] [address] ROUTINE EKG TREADMILL STRESS TESTOrdered By: Abimael Elizabeth on 04-07-2019 EXERCISE ECG STRESS TEST Kun Protocol PATIENT: Stephane Toribio STUDY DATE: 04/07/2019 : 1960 AGE: 58 HT/WT: GENDER: M BP: LOCATION: [facility] PATIENT [facility] STATUS: *ORDERING PHYSICIAN: * Abimael Elizabeth *SUPERVISING PHYSICIAN: * Josue Packer *RN: * Dora Beavers *READING PHYSICIAN: * Reji Card DO [facility], [facility] INDICATIONS: Chest Pressure (R07.89). Exertional Dyspnea (R06.09). Malaise (R53.81). HISTORY: Chest Pain/ discomfort with exertion. Tobacco use former Hypertension treated Medications: Aspirin. Lisinopril (Zestril). Fish Oil. Allergies: No known allergies. Patient is NPO per policy. CONCLUSIONS SUMMARY: 1. Normal study. 2. Stress ECG conclusions: The stress ECG is normal. [place] scoring: exercise time of 7.5 min; maximum ST deviation of 0 mm; no angina; resulting score is 8. This score predicts a low risk of cardiac events. STUDY DATA: Exercise ECG stress test. Procedure: Initial setup. A baseline ECG was recorded. Surface ECG leads and blood pressure measurements were monitored. Treadmill exercise testing was performed using the Kun protocol. The patient exercised for 7 min 39 sec, to a maximal work rate of 7.8 mets. Exercise was terminated due to moderate dyspnea and moderate fatigue. Exercise was terminated when the patient's Candace scale was 17. Study status: Routine. Patient status: Outpatient. Pre pain assessment is 0 out of 10. Post pain assessment is 0 out of 10. Location: Stress laboratory. Consent: The procedure was reviewed with the patient and the patient voices understanding. Study completion: The patient tolerated the procedure well. There were no complications. Discharge: Discharge instructions given The patient was discharged to homewhile ambulatory. FINDINGS BASELINE ECG: Normal sinus rhythm. STRESS PROTOCOL: + +---+------- -----+ +------- + +Stage +HR +BP +Symptoms +Comments + + +---+------- -----+ +------- + +Rest +58 +140/86 (104)+No symptoms.+Pulse ox 97% Room Air.+ + +---+------- -----+ +------- + +Peak stress +139+196/82 (120)+Dyspnea. + + + +---+------- -----+ +------- + +Recovery +98 +228/78 (128)+No symptoms.+ ------+ + +---+------- -----+ +------- + +Late recovery+74 +140/80 (100)+No symptoms.+ ------+ + +---+------- -----+ +------- + STRESS RESULTS: There is a normal resting blood pressure with a hypertensive response to stress. Peak blood pressure achieved during test: 228/78 The rate-pressure product for the peak heart rate and blood pressure was 43832 mm Hg/min. Stress testing did not produce any symptoms suggestive of coronary artery disease. Peak heart rate during stress was 139 bpm (86% of maximal predicted heart rate). The maximal predicted heart rate was 161 bpm.The target heart rate was achieved. The heart rate recovery at one minute is normal. The heart rate at 1 minute into recovery was 115 bpm. The heart rate response to stress was normal. STRESS ECG: There are no stress arrhythmias or conduction abnormalities. The stress ECG is normal. [place] scoring: exercise time of 7.5 min; maximum ST deviation of 0 mm; no angina; resulting score is 8. This score predicts a low risk of cardiac events. Electronically signed by Reji Card DO, FSVM, FACC 04/07/2019 12:01 Prior Signatures: [facility] Work Phone: Amanda Romero Incoming Cardiology Results From [facility] - 04/07/2019 12:01 PM EST EXERCISE ECG STRESS TEST Kun Protocol PATIENT: Stephane Toribio STUDY DATE: 04/07/2019 [facility]#: [id number] : 1960 AGE: 58 HT/WT: GENDER: M BP: LOCATION: [facility] PATIENT Outpatient [facility] Center STATUS: *ORDERING PHYSICIAN: * Abimael Elizabeth *SUPERVISING PHYSICIAN: * Josue Packer *RN: * Dora Beavers *READING PHYSICIAN: * Reji Card DO, FS, [facility] INDICATIONS: Chest Pressure (R07.89). Exertional Dyspnea (R06.09). Malaise (R53.81). HISTORY: Chest Pain/ discomfort with exertion. Tobacco use former Hypertension treated Medications: Aspirin. Lisinopril (Zestril). Fish Oil. Allergies: No known allergies. Patient is NPO per policy. CONCLUSIONS SUMMARY: 1. Normal study. 2. Stress ECG conclusions: The stress ECG is normal. [place] scoring: exercise time of 7.5 min; maximum ST deviation of 0 mm; no angina; resulting score is 8. This score predicts a low risk of cardiac events. STUDY DATA: Exercise ECG stress test. Procedure: Initial setup. A baseline ECG was recorded. Surface ECG leads and blood pressure measurements were monitored. Treadmill exercise testing was performed using the Kun protocol. The patient exercised for 7 min 39 sec, to a maximal work rate of 7.8 mets. Exercise was terminated due to moderate dyspnea and moderate fatigue. Exercise was terminated when the patient's Candace scale was 17. Study status: Routine. Patient status: Outpatient. Pre pain assessment is 0 out of 10. Post pain assessment is 0 out of 10. Location: Stress laboratory. Consent: The procedure was reviewed with the patient and the patient voices understanding. Study completion: The patient tolerated the procedure well. There were no complications. Discharge: Discharge instructions given The patient was discharged to homewhile ambulatory. FINDINGS BASELINE ECG: Normal sinus rhythm. STRESS PROTOCOL: + +---+------- -----+ +------- + +Stage +HR +BP +Symptoms +Comments + + +---+------- -----+ +------- + +Rest +58 +140/86 (104)+No symptoms.+Pulse ox 97% Room Air.+ + +---+------- -----+ +------- + +Peak stress +139+196/82 (120)+Dyspnea. + + + +---+------- -----+ +------- + +Recovery +98 +228/78 (128)+No symptoms.+ ------+ + +---+------- -----+ +------- + +Late recovery+74 +140/80 (100)+No symptoms.+ ------+ + +---+------- -----+ +------- + STRESS RESULTS: There is a normal resting blood pressure with a hypertensive response to stress. Peak blood pressure achieved during test: 228/78 The rate-pressure product for the peak heart rate and blood pressure was 53055 mm Hg/min. Stress testing did not produce any symptoms suggestive of coronary artery disease. Peak heart rate during stress was 139 bpm (86% of maximal predicted heart rate). The maximal predicted heart rate was 161 bpm.The target heart rate was achieved. The heart rate recovery at one minute is normal. The heart rate at 1 minute into recovery was 115 bpm. The heart rate response to stress was normal. STRESS ECG: There are no stress arrhythmias or conduction abnormalities. The stress ECG is normal. [place] scoring: exercise time of 7.5 min; maximum ST deviation of 0 mm; no angina; resulting score is 8. This score predicts a low risk of cardiac events. Electronically signed by Reji Card DO, [facility] 04/07/2019 12:01 Prior Signatures: [facility] Work Phone: PROGRESSon 12-19-2017 Protein mass conc HNO ID: [id number] thor: Alexandra Celestin: (none)Author Type: PhysicianType: Progress NotesFiled: 12/19/2017 8:20 PMNote Text:Stephane Toribio is s/p laparoscopic cholecystectomy on 12/03/17.Pathology reveals - chronic cholecystitisPatient states that he feels improved as compared to prior to surgery.Examination: abdomen is soft and benign, wounds are well healed, noevidence of infection notedImpression: s/p laparoscopic cholecystectomyPlan: Follow up as per needed.Patient to return to his primary physician for medical care. Normal [facility] CNOVon 12-16-2017 CNOV Office Visit (GENSWS) STEPHANE TORIBIO ([id number]) 1960 MDate Time Provider Department12/16/17 3:00 PM ALEXANDRA ROBLES During your visit today, we recorded the following information about you:Alexandra Robles MD 12/19/2017 8:20 PM Pradeep Toribio is s/p laparoscopic cholecystectomy on 12/03/17.Pathology reveals - chronic cholecystitisPatient states that he feels improved as compared to prior to surgery.Examination: abdomen is soft and benign, wounds are well healed, no evidence ofinfection notedImpression: s/p laparoscopic cholecystectomyPlan: Follow up as per needed.Patient to return to his primary physician for medical care.Referring Provider: ALEXANDRA ROBLES [[id number]]Allergies As of Date: 12/16/2017(No Known Allergies)Date Reviewed: 12/16/2017Reviewed by: Zaira García LPN - Fully AssessedReason for Visit: Post Op [174]Primary Visit Diagnosis:Surgery follow-up examination [Z09]Prescriptions as of 12/16/2017 Sig: LISINOPRIL 20 MG TABLET Take 20 mg by mouth once dona* SERTRALINE 25 MG TABLET Take 25 mg by mouth once dona* TAMSULOSIN 0.4 MG CAPSULE Take 0.4 mg by mouth. MONTELUKAST 10 MG TABLET Take 10 mg by mouth daily at * ESOMEPRAZOLE MAGNESIUM 40 MG * Take 40 mg by mouth DAILY (6 * MELATONIN 5 MG TABLET Take 5 mg by mouth. LORATADINE 10 MG TABLET Take 10 mg by mouth once dona* MOMETASONE 50 MCG/ACTUATION N* Use 2 Sprays in the nose once* NAPROXEN 250 MG TABLET Take 250 mg by mouth twice da* VITAMIN B COMP AND C NO.3 ORAL Take by mouth. CHOLECALCIFEROL (VITAMIN D3) * Take by mouth. OMEGA-3 2100 ORAL Take by mouth. MULTIVITAMIN TABLET Take 1 tablet by mouth once d* PROBIOTIC-10 ORAL Take by mouth. ALOE VERA-LACTIC ACID-CERAMID* Apply to affected area. ASPIRIN 81 MG TABLET,DELAYED * Take 81 mg by mouth once dona*Problem List As Of Date: 12/16/2017(None) Status:Closed by MD ALEXANDRA ROBLES on 12/19/17 [facility] CNOVon 11-04-2017 CNOV Office Visit (CULLEN) STEPHANE TORIBIO ([id number]) 1960 MDate Time Provider Department11/04/17 2:40 PM ALEXANDRA ROBLES During your visit today, we recorded the following information about you: Pulse Blood pressure Weight Height 66/minute 150/70 149.2 kg 1.778 mLinda M Robles, MD 11/04/2017 3:18 PM SignedSurgery scheduled November 09, 2017 tentatively At 14:30Preanesthesia testing appointment by phone Thursday morning at November 06Nothing to eat or drink 6 hour prior surgery (8am) - you can take meds withsips of waterNo aspirin for at least three days prior to surgeryZaira García CARMELA 11/04/2017 3:17 PM SignedREVIEW OF SYSTEMS: General: The patient denies fatigue, denies weight loss, denies weightgain, denies feeling hot, and denies feelings of cold. Eyes: The patient denies glaucoma, denies eye injury/surgery, wearsglasses or contacts. Ear/Nose/Throat: The patient NOTES allergies, denies hayfever, denies earinfections, and denies bloody noses. Cardiovascular: The patient denies chest pain, denies heart disease,denies high blood pressure,denies cardiac stent, denies prior heart attack,denies irregular heart beat, denies high cholesterol, denies poor circulation,denies heart failure, other cardiac issues, denies claudication, denies coldfeet, denies peripheral arterial stent. Respiratory: The patient denies tuberculosis, denies pneumonia, deniesfrequent cough, denies pulmonary embolism, denies shortness of breath, anddenies coughing up blood. Gastrointestinal: The patient denies difficulty swallowing, NOTES acidreflux, denies ulcers, denies vomiting, denies jaundice/hepatitis, NOTESgallbladder problems, denies black or tarry stools, denies hemorrhoids, deniesbleeding from rectum, denies diverticulitis, denies constipation, deniesdiarrhea, denies loss of stool control, and denies hernias. Kidney/Bladder: The patient denies kidney stones, denies urineinfections, and denies bloody urine. Skin: The patient denies a history of skin cancer, deniesbleeding/changing moles, and denies a history of skin rash. Neurologic: The patient denies a history of epilepsy/convulsions, deniesheadaches, denies head/spinal injuries, and denies stroke/TIA. Psychiatric: The patient denies psychiatric medications, deniesdepression, and denies voices, denies substance abuse. Endocrine: The patient denies thyroid disorders, denies diabetes, anddenies hormonal problems. Hematologic: The patient denies a history of bruising, denies bleeding,and denies anemia, denies blood clots. Infections: The patient denies a history of measles and mumps, deniesrheumatic fever, and denies sexually transmitted diseases. Musculoskeletal: The patient denies back pain/injury, denies backproblems, denies sciatica, denies knee/foot trouble, denies arthritis, ordenies gout.When was patient's last Mammogram screening? N/A Last Colonoscopy: Carolyn Robles MD 11/05/2017 1:44 PM SignedStephane Toribio1960REFERRING PHYSICIAN: SHANNON Ellison COMPLAINT: abnormal usHPI: The patient is a 57 year old male presents with back pain around the firstof August and then noted right upper quadrant/epigastric abdominal pain.Not related to foods that he had been eating.Notes a burning sensation of the right upper quadrant. Occasional sharp painsin the area. States that he is unable to lie on the left side, as pain getsworse.Had an episode of constipation but this has resolved.Denies fevers.Now the pain is more constant in the past week.HIDA scan 10/26/17 revealed ejection fraction of 34.5% (normal is 35%)Denies biliary obstructive signs/symptoms.PAST MEDICAL HISTORY:GERDMorbid obesity BMI 47Obstructive sleep apneaLeft chan's neuromaPAST SURGICAL HISTORY:Colonoscopy 2009Right ORIF wrist 2009Wisdom teeth extractionExcision of lipomaLeft finger pin for injury 2015PAST INJURIESDenies head injuries, wrist and finger fractureMEDICATIONSsertral ine (ZOLOFT) 25 mg tablet Take 25 mg by mouth once daily.tamsulosin ER (FLOMAX) 0.4 mg cap Take 0.4 mg by mouth.montelukast (SINGULAIR) 10 mg tablet Take 10 mg by mouth daily at bedtime.esomeprazole (NEXIUM) 40 mg capsule Take 40 mg by mouth DAILY (6 AM).melatonin 5 mg tablet Take 5 mg by mouth.loratadine (CLARITIN) 10 mg tablet Take 10 mg by mouth once daily.mometasone (NASONEX) 50 mcg/actuation nasal spray Use 2 Sprays in the nose oncedaily.naproxen (NAPROSYN) 250 mg tablet Take 250 mg by mouth twice daily with meals.vitamin B complex vit C no.3 (VITAMIN B COMP AND C NO.3 ORAL) Take by mouth.Cholecalciferol, Vitamin D3, (VITAMIN D-3) 2,000 unit cap Take by mouth.omega-3/dha/epa/dpa/ fish oil (OMEGA-3 2100 ORAL) Take by mouth.multivitamin tablet Take 1 tablet by mouth once daily.Lactobac no.41/Bifidobact no.7 (PROBIOTIC-10 ORAL) Take by mouth.Aloe-Lact Ac-Ceramide 3,3B,6,1 1 % crea Apply to affected area.aspirin, enteric coated (ASPIRIN, ENTERIC COATED) 81 mg EC tablet Take 81 mg bymouth once daily.lisinopril (ZESTRIL, PRINIVIL) 20 mg tablet Take 20 mg by mouth once daily.ALLERGIES: Patient has no known allergies.PERSONAL HISTORY: Social History Marital status: Spouse name:Social History Denies TOB use Drug use: UnknownFAMILY HISTORY: No gallbladder disease in the family.REVIEW OF SYSTEMS: General: The patient denies fatigue, denies weight loss, denies weightgain, denies feeling hot, and denies feelings of cold. Eyes: The patient denies glaucoma, denies eye injury/surgery, wearsglasses or contacts. Ear/Nose/Throat: The patient NOTES allergies, denies hayfever, denies earinfections, and denies bloody noses. Cardiovascular: The patient denies chest pain, denies heart disease,denies high blood pressure,denies cardiac stent, denies prior heart attack,denies irregular heart beat, denies high cholesterol, denies poor circulation,denies heart failure, other cardiac issues, denies claudication, denies coldfeet, denies peripheral arterial stent. Respiratory: The patient denies tuberculosis, denies pneumonia, deniesfrequent cough, denies pulmonary embolism, denies shortness of breath, anddenies coughing up blood. Gastrointestinal: The patient denies difficulty swallowing, NOTES acidreflux, denies ulcers, denies vomiting, denies jaundice/hepatitis, NOTESgallbladder problems, denies black or tarry stools, denies hemorrhoids, deniesbleeding from rectum, denies diverticulitis, denies constipation, deniesdiarrhea, denies loss of stool control, and denies hernias. Kidney/Bladder: The patient denies kidney stones, denies urineinfections, and denies bloody urine. Skin: The patient denies a history of skin cancer, deniesbleeding/changing moles, and denies a history of skin rash. Neurologic: The patient denies a history of epilepsy/convulsions, deniesheadaches, denies head/spinal injuries, and denies stroke/TIA. Psychiatric: The patient denies psychiatric medications, deniesdepression, and denies voices, denies substance abuse. Endocrine: The patient denies thyroid disorders, denies diabetes, anddenies hormonal problems. Hematologic: The patient denies a history of bruising, denies bleeding,and denies anemia, denies blood clots. Infections: The patient denies a history of measles and mumps, deniesrheumatic fever, and denies sexually transmitted diseases. Musculoskeletal: The patient denies back pain/injury, denies backproblems, denies sciatica, denies knee/foot trouble, denies arthritis, ordenies gout.PHYSICAL EXAMINATION:General: The patient is 57 year old male, well nourished, well hydrated in noacute distress. The patient is oriented to time, place, and person.VITALS: Blood pressure 150/70, pulse 66, height 177.8 cm (5' 10), weight (!)149.2 kg (329 lb). Body mass index is 47.21 kg/m?.Head ? Normocephalic. EOM intact with sclera clear and no icterus noted.Wearing glasses. Mouth with mucus membranes moist.Neck - supple with no jugular venous distention noted. Trachea is midline. Nocarotid bruits noted.Lungs ? clear to auscultation. Normal breath sounds. No rales/rhonchi/wheezingnote d. No labored breathing noted, such as retractions.Heart ? normal S1 and S2 auscultated. No rubs/clicks/murmurs noted. Regularrate.Abdomen ? soft and benign. Normal bowel sounds. Tender in right upper quadrantand epigastrium, no peritoneal signs noted. Difficult to determine if anymasses or organomegaly due to body habitus.Extremities ? no calf tenderness noted. No pitting edema noted.Skin ? normal skin integrity.Neurological ? gait normal, no focal deficits notedPsych ? calm and appropriateAssessmentIMPRE SSION: biliary colic, low EF by NM HIDA scanPLAN: I have discussed the above with the patient and his who is presentwith him.I have offered laparoscopic cholecystectomy, possible cholangiogramsHowever, I have counseled patient that this may not entirely alleviate hissymptoms, as his ejection fraction is only slightly below normal at 34.5%.However, his symptoms can be attributed to biliary colic.I have explained the procedure to the patient.I have counseled the patient as to the risks of the procedure, including butnot limited to: infection, bleeding, injury to any blood vessels/nerves, scartissue, injury to any intraabdominal organs, injury to bowel/bladder, injury tothe common bile duct/biliary tree, bile leakage, intraabdominalabscess/blee ding, hernias at incisional sites, wound infections, non resolutionof symptoms, complications of anesthesia, etc. ? the patient understands.The patient wishes to proceed.I have answered all questions to the patient?s satisfaction and the patient hasno further questions..Diagnoses: (R94.8) Abnormal biliary HIDA scan (primary encounter diagnosis)(R10.11) Right upper quadrant abdominal pain(E66.01) Morbid obesity (HCC)Return to Clinic: The patient is instructed to follow-up with me after thesurgery. Alexandra Robles, MDReferring Provider: SELF [[id number]]Allergies As of Date: 11/04/2017(No Known Allergies)Date Reviewed: 11/04/2017Reviewed by: Alexandra Robles - Fully AssessedReason for Visit: abnormal us [Other]Primary Visit Diagnosis:Abnormal biliary HIDA scan [R94.8] Other Visit Diagnoses:Right upper quadrant abdominal pain [R10.11] Morbid obesity (HCC) [E66.01]Prescriptions as of 11/04/2017 Sig: SERTRALINE 25 MG TABLET Take 25 mg by mouth once dona* TAMSULOSIN 0.4 MG CAPSULE Take 0.4 mg by mouth. MONTELUKAST 10 MG TABLET Take 10 mg by mouth daily at * ESOMEPRAZOLE MAGNESIUM 40 MG * Take 40 mg by mouth DAILY (6 * MELATONIN 5 MG TABLET Take 5 mg by mouth. LORATADINE 10 MG TABLET Take 10 mg by mouth once dona* MOMETASONE 50 MCG/ACTUATION N* Use 2 Sprays in the nose once* NAPROXEN 250 MG TABLET Take 250 mg by mouth twice da* VITAMIN B COMP AND C NO.3 ORAL Take by mouth. CHOLECALCIFEROL (VITAMIN D3) * Take by mouth. OMEGA-3 2100 ORAL Take by mouth. MULTIVITAMIN TABLET Take 1 tablet by mouth once d* PROBIOTIC-10 ORAL Take by mouth. ALOE VERA-LACTIC ACID-CERAMID* Apply to affected area. ASPIRIN 81 MG TABLET,DELAYED * Take 81 mg by mouth once dona* LISINOPRIL 20 MG TABLET Take 20 mg by mouth once dona*Problem List As Of Date: 11/04/2017(None) Other instructions from your clinician: Surgery scheduled November 09, 2017 tentatively At 14:30 Preanesthesia testing appointment by phone Thursday morning at November 06 Nothing to eat or drink 6 hour prior surgery (8am) - you can take meds with sips of water No aspirin for at least three days prior to surgeryVisit Notes:>> Zaira García LPN ThuNov 04, 2017 3:16 PM Status: SignedREVIEW OF SYSTEMS: General: The patient denies fatigue, denies weight loss, deniesweight gain, denies feeling hot, and denies feelings of cold. Eyes: The patient denies glaucoma, denies eye injury/surgery, wearsglasses or contacts. Ear/Nose/Throat: The patient NOTES allergies, denies hayfever,denies ear infections, and denies bloody noses. Cardiovascular: The patient denies chest pain, denies heart disease,denies high blood pressure,denies cardiac stent, denies prior heartattack, denies irregular heart beat, denies high cholesterol, denies poorcirculation, denies heart failure, other cardiac issues, deniesclaudication, denies cold feet, denies peripheral arterial stent. Respiratory: The patient denies tuberculosis, denies pneumonia,denies frequent cough, denies pulmonary embolism, denies shortness ofbreath, and denies coughing up blood. Gastrointestinal: The patient denies difficulty swallowing, NOTESacid reflux, denies ulcers, denies vomiting, denies jaundice/hepatitis,NOTES gallbladder problems, denies black or tarry stools, denieshemorrhoids, denies bleeding from rectum, denies diverticulitis, deniesconstipation, denies diarrhea, denies loss of stool control, and denieshernias. Kidney/Bladder: The patient denies kidney stones, denies urineinfections, and denies bloody urine. Skin: The patient denies a history of skin cancer, deniesbleeding/changing moles, and denies a history of skin rash. Neurologic: The patient denies a history of epilepsy/convulsions,denie s headaches, denies head/spinal injuries, and denies stroke/TIA. Psychiatric: The patient denies psychiatric medications, deniesdepression, and denies voices, denies substance abuse. Endocrine: The patient denies thyroid disorders, denies diabetes,and denies hormonal problems. Hematologic: The patient denies a history of bruising, deniesbleeding, and denies anemia, denies blood clots. Infections: The patient denies a history of measles and mumps,denies rheumatic fever, and denies sexually transmitted diseases. Musculoskeletal: The patient denies back pain/injury, denies backproblems, denies sciatica, denies knee/foot trouble, denies arthritis, ordenies gout.When was patient's last Mammogram screening? N/A Last Colonoscopy: NoneJoamanda Lee TextEncounter Number: [id number] Status:Closed by MD ALEXANDRA ROBLES on 11/05/17 Normal [facility] PROGRESSon 11-04-2017 Protein mass conc HNO ID: [id number] thor: Alexandra Celestin: (none)Author Type: PhysicianType: Progress NotesFiled: 11/05/2017 1:44 PMNote Text:Stephane Toribio1960REFERRING PHYSICIAN: SHANNON Ellison COMPLAINT: abnormal usHPI: The patient is a 57 year old male presents with back pain around thefirst of August and then noted right upper quadrant/epigastric abdominalpain.Not related to foods that he had been eating.Notes a burning sensation of the right upper quadrant. Occasional sharppains in the area. States that he is unable to lie on the left side, aspain gets worse.Had an episode of constipation but this has resolved.Denies fevers.Now the pain is more constant in the past week.HIDA scan 10/26/17 revealed ejection fraction of 34.5% (normal is 35%)Denies biliary obstructive signs/symptoms.PAST MEDICAL HISTORY:GERDMorbid obesity BMI 47Obstructive sleep apneaLeft chan's neuromaPAST SURGICAL HISTORY:Colonoscopy 2009Right ORIF wrist 2009Wisdom teeth extractionExcision of lipomaLeft finger pin for injury 2015PAST INJURIESDenies head injuries, wrist and finger fractureMEDICATIONSsertral ine (ZOLOFT) 25 mg tablet Take 25 mg by mouth once daily.tamsulosin ER (FLOMAX) 0.4 mg cap Take 0.4 mg by mouth.montelukast (SINGULAIR) 10 mg tablet Take 10 mg by mouth daily at bedtime.esomeprazole (NEXIUM) 40 mg capsule Take 40 mg by mouth DAILY (6 AM).melatonin 5 mg tablet Take 5 mg by mouth.loratadine (CLARITIN) 10 mg tablet Take 10 mg by mouth once daily.mometasone (NASONEX) 50 mcg/actuation nasal spray Use 2 Sprays in the noseonce daily.naproxen (NAPROSYN) 250 mg tablet Take 250 mg by mouth twice daily withmeals.vitamin B complex vit C no.3 (VITAMIN B COMP AND C NO.3 ORAL) Take bymouth.Cholecalciferol, Vitamin D3, (VITAMIN D-3) 2,000 unit cap Take by mouth.omega-3/dha/epa/dpa/ fish oil (OMEGA-3 2100 ORAL) Take by mouth.multivitamin tablet Take 1 tablet by mouth once daily.Lactobac no.41/Bifidobact no.7 (PROBIOTIC-10 ORAL) Take by mouth.Aloe-Lact Ac-Ceramide 3,3B,6,1 1 % crea Apply to affected area.aspirin, enteric coated (ASPIRIN, ENTERIC COATED) 81 mg EC tablet Take 81mg by mouth once daily.lisinopril (ZESTRIL, PRINIVIL) 20 mg tablet Take 20 mg by mouth oncedaily.ALLERGIES: Patient has no known allergies.PERSONAL HISTORY: Social History Marital status: Spouse name:Social History Denies TOB use Drug use: UnknownFAMILY HISTORY: No gallbladder disease in the family.REVIEW OF SYSTEMS: General: The patient denies fatigue, denies weight loss, deniesweight gain, denies feeling hot, and denies feelings of cold. Eyes: The patient denies glaucoma, denies eye injury/surgery, wearsglasses or contacts. Ear/Nose/Throat: The patient NOTES allergies, denies hayfever,denies ear infections, and denies bloody noses. Cardiovascular: The patient denies chest pain, denies heart disease,denies high blood pressure,denies cardiac stent, denies prior heartattack, denies irregular heart beat, denies high cholesterol, denies poorcirculation, denies heart failure, other cardiac issues, deniesclaudication, denies cold feet, denies peripheral arterial stent. Respiratory: The patient denies tuberculosis, denies pneumonia,denies frequent cough, denies pulmonary embolism, denies shortness ofbreath, and denies coughing up blood. Gastrointestinal: The patient denies difficulty swallowing, NOTESacid reflux, denies ulcers, denies vomiting, denies jaundice/hepatitis,NOTES gallbladder problems, denies black or tarry stools, denieshemorrhoids, denies bleeding from rectum, denies diverticulitis, deniesconstipation, denies diarrhea, denies loss of stool control, and denieshernias. Kidney/Bladder: The patient denies kidney stones, denies urineinfections, and denies bloody urine. Skin: The patient denies a history of skin cancer, deniesbleeding/changing moles, and denies a history of skin rash. Neurologic: The patient denies a history of epilepsy/convulsions,denie s headaches, denies head/spinal injuries, and denies stroke/TIA. Psychiatric: The patient denies psychiatric medications, deniesdepression, and denies voices, denies substance abuse. Endocrine: The patient denies thyroid disorders, denies diabetes,and denies hormonal problems. Hematologic: The patient denies a history of bruising, deniesbleeding, and denies anemia, denies blood clots. Infections: The patient denies a history of measles and mumps,denies rheumatic fever, and denies sexually transmitted diseases. Musculoskeletal: The patient denies back pain/injury, denies backproblems, denies sciatica, denies knee/foot trouble, denies arthritis, ordenies gout.PHYSICAL EXAMINATION:General: The patient is 57 year old male, well nourished, well hydratedin no acute distress. The patient is oriented to time, place, and person.VITALS: Blood pressure 150/70, pulse 66, height 177.8 cm (5' 10), weight(!) 149.2 kg (329 lb). Body mass index is 47.21 kg/m?.Head ? Normocephalic. EOM intact with sclera clear and no icterus noted.Wearing glasses. Mouth with mucus membranes moist.Neck - supple with no jugular venous distention noted. Trachea is midline.No carotid bruits noted.Lungs ? clear to auscultation. Normal breath sounds. Shelley/rhonchi/wheezing noted. No labored breathing noted, such asretractions.Heart ? normal S1 and S2 auscultated. No rubs/clicks/murmurs noted.Regular rate.Abdomen ? soft and benign. Normal bowel sounds. Tender in right upperquadrant and epigastrium, no peritoneal signs noted. Difficult todetermine if any masses or organomegaly due to body habitus.Extremities ? no calf tenderness noted. No pitting edema noted.Skin ? normal skin integrity.Neurological ? gait normal, no focal deficits notedPsych ? calm and appropriateAssessmentIMPRE SSION: biliary colic, low EF by NM MATTHEW scanPLAN: I have discussed the above with the patient and his who ispresent with him.I have offered laparoscopic cholecystectomy, possible cholangiogramsHowever, I have counseled patient that this may not entirely alleviate hissymptoms, as his ejection fraction is only slightly below normal at 34.5%.However, his symptoms can be attributed to biliary colic.I have explained the procedure to the patient.I have counseled the patient as to the risks of the procedure, includingbut not limited to: infection, bleeding, injury to any bloodvessels/nerves, scar tissue, injury to any intraabdominal organs, injuryto bowel/bladder, injury to the common bile duct/biliary tree, bileleakage, intraabdominal abscess/bleeding, hernias at incisional sites,wound infections, non resolution of symptoms, complications of anesthesia,etc. ? the patient understands.The patient wishes to proceed.I have answered all questions to the patient?s satisfaction and thepatient has no further questions..Diagnoses: (R94.8) Abnormal biliary HIDA scan (primary encounterdiagnosis)(R10.11 ) Right upper quadrant abdominal pain(E66.01) Morbid obesity (HCC)Return to Clinic: The patient is instructed to follow-up with me after thesurgery. Alexandra Robles MD [facility] Vital Signs Date Time Vital Sign Value Performing Clinician Rita rubin 02-10-2025 08:52-0400 Diastolic blood pressure 64 mm[Hg] Reji Maradiaga MD Work Phone: [facility] 02-10-2025 08:52-0400 Heart rate 64 /min Reji Maradiaga MD Work Phone: [facility] 02-10-2025 08:52-0400 Systolic blood pressure 113 mm[Hg] Reji Maradiaga MD Work Phone: [facility] 01-26-2025 13:09-0400 Body temperature 97 [degF] Dr. Abimael Elizabeth DO Work Phone: [facility] 01-26-2025 13:09-0400 Diastolic blood pressure 70 mm[Hg] Dr. Abimael Elizabeth DO Work Phone: [facility] 01-26-2025 13:09-0400 Heart rate 87 /min Dr. Abimael Elizabeth DO Work Phone: [facility] 01-26-2025 13:09-0400 Respiratory rate 18 /min Dr. Abimael Elizabeth DO Work Phone: [facility] 01-26-2025 13:09-0400 Systolic blood pressure 126 mm[Hg] Dr. Abimael Elizabeth DO Work Phone: [facility] 01-26-2025 08:26-0400 Body height 177.[address] Abimael Elizabeth DO Work Phone: [facility] 01-26-2025 08:26-0400 Body mass index (BMI) [Ratio] 43.2 kg/m2 Dr. Abimael Elizabeth DO Work Phone: [facility] 01-26-2025 08:26-0400 Body weight 136.[address] Abimael Elizabeth DO Work Phone: [facility] 01-26-2025 08:26-0400 Diastolic blood pressure 76 mm[Hg] Dr. Abimael Elizabeth DO Work Phone: [facility] 01-26-2025 08:26-0400 Heart rate 94 /min Dr. Abimael Elizabeth DO Work Phone: [facility] 01-26-2025 08:26-0400 Respiratory rate 18 /min Dr. Abimael Elizabeth DO Work Phone: [facility] 01-26-2025 08:26-0400 Systolic blood pressure 125 mm[Hg] Dr. Abimael Elizabeth DO Work Phone: [facility] 01-24-2025 07:49-0400 Body temperature 97.2 [degF] Vani Muñiz MD Work Phone: [facility] 01-24-2025 07:49-0400 Diastolic blood pressure 81 mm[Hg] Vani Muñiz MD Work Phone: [facility] 01-24-2025 07:49-0400 Heart rate 69 /min Vani Muñiz MD Work Phone: [facility] 01-24-2025 07:49-0400 Respiratory rate 16 /min Vani Muñiz MD Work Phone: [facility] 01-24-2025 07:49-0400 SaO2% (BldA) [Mass fraction] 97 % Vani Muñiz MD Work Phone: [facility] 01-24-2025 07:49-0400 Systolic blood pressure 143 mm[Hg] Vani Muñiz MD Work Phone: [facility] 01-22-2025 00:18-0400 Body height 177.8 cm Vani Muñiz MD Work Phone: [facility] 01-22-2025 00:18-0400 Body mass index (BMI) [Ratio] 44.05 kg/m2 Vani Muñiz MD Work Phone: [facility] 01-22-2025 00:18-0400 Body weight 139.25 kg Vani Muñiz MD Work Phone: [facility] 01-20-2025 09:22-0400 Diastolic blood pressure 66 mm[Hg] Reji Maradiaga MD Work Phone: [facility] 01-20-2025 09:22-0400 Heart rate 76 /min Reji Maradiaga MD Work Phone: [facility] 01-20-2025 09:22-0400 Systolic blood pressure 130 mm[Hg] Reji Maradiaga MD Work Phone: [facility] 01-17-2025 17:13-0400 Heart rate 67 /min Byron Yin MD Work Phone: [facility] 01-17-2025 17:05-0400 Diastolic blood pressure 75 mm[Hg] Byron Yin MD Work Phone: [facility] 01-17-2025 17:05-0400 Respiratory rate 19 /min Byron Yin MD Work Phone: [facility] 01-17-2025 17:05-0400 SaO2% (BldA) [Mass fraction] 99 % Byron Yin MD Work Phone: [facility] 01-17-2025 17:05-0400 Systolic blood pressure 173 mm[Hg] Byron Yin MD Work Phone: [facility] 01-17-2025 13:24-0400 Body temperature 97.39 [degF] Byron Yin MD Work Phone: [facility] 01-16-2025 14:25-0400 Body temperature 98.7 [degF] [facility] 01-16-2025 14:25-0400 Diastolic blood pressure 73 mm[Hg] [facility] 01-16-2025 14:25-0400 Heart rate 73 /min [facility] 01-16-2025 14:25-0400 Respiratory rate 18 /min [facility] 01-16-2025 14:25-0400 SaO2% (BldA) [Mass fraction] 96 % [facility] 01-16-2025 14:25-0400 Systolic blood pressure 133 mm[Hg] [facility] 01-16-2025 08:00-0400 Inhaled oxygen flow rate 6 L/min [facility] 01-16-2025 05:21-0400 Body weight 144.1 kg [facility] 01-14-2025 19:50-0400 Body height 177.8 cm [facility] 01-14-2025 19:30-0400 Diastolic blood pressure 89 mm[Hg] [facility] 01-14-2025 19:30-0400 Heart rate 72 /min [facility] 01-14-2025 19:30-0400 Respiratory rate 20 /min [facility] 01-14-2025 19:30-0400 SaO2% (BldA) [Mass fraction] 98 % [facility] 01-14-2025 19:30-0400 Systolic blood pressure 172 mm[Hg] [facility] 01-14-2025 10:11-0400 Body temperature 98.2 [degF] [facility] 01-14-2025 10:07-0400 Body height 177.8 cm [facility] 01-14-2025 10:07-0400 Body weight 144.15 kg [facility] 01-05-2025 09:08-0400 Body temperature 96 [degF] Dr. Abimael Elizabeth DO Work Phone: [facility] 01-05-2025 09:08-0400 Diastolic blood pressure 70 mm[Hg] Dr. Abimael Elizabeth DO Work Phone: [facility] 01-05-2025 09:08-0400 Heart rate 69 /min Dr. Abimael Elizabeth DO Work Phone: [facility] 01-05-2025 09:08-0400 Respiratory rate 14 /min Dr. Abimael Elizabeth DO Work Phone: [facility] 01-05-2025 09:08-0400 Systolic blood pressure 151 mm[Hg] Dr. Abimael Elizabeth DO Work Phone: [facility] 01-02-2025 13:43-0400 Diastolic blood pressure 78 mm[Hg] Reji Maradiaga MD Work Phone: [facility] 01-02-2025 13:43-0400 Heart rate 60 /min Reji Maradiaga MD Work Phone: [facility] 01-02-2025 13:43-0400 Systolic blood pressure 139 mm[Hg] Reji Maradiaga MD Work Phone: [facility] 12-08-2024 12:58-0400 Body temperature 96.5 [degF] Dr. Abimael Elizabeth DO Work Phone: [facility] 12-08-2024 12:58-0400 Diastolic blood pressure 82 mm[Hg] Dr. Abimael Elizabeth DO Work Phone: [facility] 12-08-2024 12:58-0400 Heart rate 69 /min Dr. Abimael Elizabeth DO Work Phone: [facility] 12-08-2024 12:58-0400 Respiratory rate 18 /min Dr. Abimael Elizabeth DO Work Phone: [facility] 12-08-2024 12:58-0400 Systolic blood pressure 162 mm[Hg] Dr. Abimael Elizabeth DO Work Phone: [facility] 11-09-2024 11:10-0400 Body temperature 97.2 [degF] Dr. Abimael Elizabeth DO Work Phone: [facility] 11-09-2024 11:10-0400 Diastolic blood pressure 73 mm[Hg] Dr. Abimael Elizabeth DO Work Phone: [facility] 11-09-2024 11:10-0400 Heart rate 64 /min Dr. Abimael Elizabeth DO Work Phone: [facility] 11-09-2024 11:10-0400 Respiratory rate 18 /min Dr. Abimael Elizabeth DO Work Phone: [facility] 11-09-2024 11:10-0400 Systolic blood pressure 153 mm[Hg] Dr. Abimael Elizabeth DO Work Phone: [facility] 10-05-2024 10:26-0400 Body temperature 97.6 [degF] Dr. Abimael Elizabeth DO Work Phone: [facility] 10-05-2024 10:26-0400 Diastolic blood pressure 84 mm[Hg] Dr. Abimael Elizabeth DO Work Phone: [facility] 10-05-2024 10:26-0400 Heart rate 61 /min Dr. Abimael Elizabeth DO Work Phone: [facility] 10-05-2024 10:26-0400 Respiratory rate 18 /min Dr. Abimael Elizabeth DO Work Phone: [facility] 10-05-2024 10:26-0400 Systolic blood pressure 139 mm[Hg] Dr. Abimael Elizabeth DO Work Phone: [facility] 01-01-2024 09:22-0400 Body height 177.8 cm Reji Maradiaga MD Work Phone: [facility] 01-01-2024 09:22-0400 Body mass index (BMI) [Ratio] 47.35 kg/m2 Reji Maradiaga MD Work Phone: [facility] 01-01-2024 09:22-0400 Body weight 149.69 kg Reji Maradiaga MD Work Phone: [facility] 01-01-2024 09:22-0400 Diastolic blood pressure 70 mm[Hg] Reji Maradiaga MD Work Phone: [facility] 01-01-2024 09:22-0400 Heart rate 57 /min Reji Maradiaga MD Work Phone: [facility] 01-01-2024 09:22-0400 Systolic blood pressure 138 mm[Hg] Reji Maradiaga MD Work Phone: [facility] 06-15-2023 15:08-0500 Body height 177.8 cm Soraya Cazares ORGANISATIONAL PSYCHOLOGIST - STARCH TREATING ASSISTANT Work Phone: [facility] 06-15-2023 15:08-0500 Body mass index (BMI) [Ratio] 47.35 kg/m2 Soraya Tobinar ORGANISATIONAL PSYCHOLOGIST - STARCH TREATING ASSISTANT Work Phone: [facility] 06-15-2023 15:08-0500 Body weight 149.69 kg Soraya Mahadar ORGANISATIONAL PSYCHOLOGIST - STARCH TREATING ASSISTANT Work Phone: [facility] 06-15-2023 15:08-0500 Diastolic blood pressure 74 mm[Hg] Soraya Tobinar ORGANISATIONAL PSYCHOLOGIST - STARCH TREATING ASSISTANT Work Phone: [facility] 06-15-2023 15:08-0500 Heart rate 64 /min Soraya Tobinar ORGANISATIONAL PSYCHOLOGIST - STARCH TREATING ASSISTANT Work Phone: [facility] 06-15-2023 15:08-0500 Systolic blood pressure 133 mm[Hg] Soryaa Cazares ORGANISATIONAL PSYCHOLOGIST - STARCH TREATING ASSISTANT Work Phone: [facility] 03-03-2023 14:34-0500 Body height 177.8 cm Sharon STEVENSON-C Work Phone: [facility] 03-03-2023 14:34-0500 Body mass index (BMI) [Ratio] 44.77 kg/m2 Sharon Naranjoo PA-C Work Phone: [facility] 03-03-2023 14:34-0500 Body weight 141.52 kg Sharon Jose Ao PA-C Work Phone: [facility] 03-03-2023 14:34-0500 Diastolic blood pressure 68 mm[Hg] Sharon Biro PA-C Work Phone: [facility] 03-03-2023 14:34-0500 Systolic blood pressure 146 mm[Hg] Sharon Biro PA-C Work Phone: [facility] 01-09-2023 09:22-0400 Body height 177.8 cm Navneet Jackson MD Work Phone: [facility] 01-09-2023 09:22-0400 Body mass index (BMI) [Ratio] 42.47 kg/m2 Navneet Jackson MD Work Phone: [facility] 01-09-2023 09:22-0400 Body weight 134.26 kg Navneet Jackson MD Work Phone: [facility] 01-09-2023 09:22-0400 Diastolic blood pressure 74 mm[Hg] Navneet Jackson MD Work Phone: [facility] 01-09-2023 09:22-0400 Systolic blood pressure 134 mm[Hg] Navneet Jackson MD Work Phone: [facility] 12-19-2022 07:48-0400 Body height 177.8 cm Flor Barfield DO Work Phone: [facility] 12-19-2022 07:48-0400 Body mass index (BMI) [Ratio] 43.05 kg/m2 Flor Pradhans DO Work Phone: [facility] 12-19-2022 07:48-0400 Body weight 136.08 kg Flor Barfield DO Work Phone: [facility] 12-19-2022 07:48-0400 Diastolic blood pressure 72 mm[Hg] Flor Barfield DO Work Phone: [facility] 12-19-2022 07:48-0400 Heart rate 66 /min Flor Barfield DO Work Phone: [facility] 12-19-2022 07:48-0400 Systolic blood pressure 135 mm[Hg] Flor Barfield DO Work Phone: [facility] 05-07-2022 14:56-0500 Body height 177.8 cm Deanbenedict Arriaga ORGANISATIONAL PSYCHOLOGIST - FINANCIAL PLANNING CONSULTANT Work Phone: [facility] 05-07-2022 14:56-0500 Body mass index (BMI) [Ratio] 46.2 kg/m2 Dean Bandastowski ORGANISATIONAL PSYCHOLOGIST - FINANCIAL PLANNING CONSULTANT Work Phone: [facility] 05-07-2022 14:56-0500 Body weight 146.06 kg Dean Bandastkenia ORGANISATIONAL PSYCHOLOGIST - FINANCIAL PLANNING CONSULTANT Work Phone: [facility] 05-07-2022 14:56-0500 Diastolic blood pressure 68 mm[Hg] Dean Bandastowski ORGANISATIONAL PSYCHOLOGIST - FINANCIAL PLANNING CONSULTANT Work Phone: [facility] 05-07-2022 14:56-0500 Heart rate 71 /min Dean Bandastowski ORGANISATIONAL PSYCHOLOGIST - FINANCIAL PLANNING CONSULTANT Work Phone: [facility] 05-07-2022 14:56-0500 Systolic blood pressure 157 mm[Hg] Dean Bandastowski ORGANISATIONAL PSYCHOLOGIST - FINANCIAL PLANNING CONSULTANT Work Phone: [facility] 03-05-2020 14:03-0500 Body Temperature 97.7 [degF] Navneet [facility] [place] 03-05-2020 14:03-0500 BP Diastolic 60 mm[Hg] Navneet [facility] , [place] 03-05-2020 14:03-0500 BP Systolic 105 mm[Hg] [facility] [place] 03-05-2020 14:03-0500 Pulse (Heart Rate) 70 /min [facility] [place] 03-05-2020 14:03-0500 Pulse Oximetry 93 % [facility] [place] 03-05-2020 14:03-0500 Respiratory Rate 18 /min Navneet [facility] 03-05-2020 11:49-0500 BMI (Body Mass Index) 46.2 kg/m2 [facility]et [facility] [place] 03-05-2020 11:49-0500 Body weight 146.06 kg Navneet Arenas [facility] [place] , [place] 03-05-2020 11:49-0500 Height 177.8 cm Navneet Arenas [facility] [place] , [place] 03-01-2020 11:11-0500 BP Diastolic 80 mm[Hg] Navneet [facility] [place] 03-01-2020 11:11-0500 BP Systolic 121 mm[Hg] [facility] [place] , [place] 03-01-2020 11:11-0500 Pulse (Heart Rate) 69 /min Navneet Arenas [facility] [place], [place] 03-01-2020 11:11-0500 Pulse Oximetry 98 % Navneet Arenas [facility] [place] , [place] 03-01-2020 11:09-0500 BMI (Body Mass Index) 46.81 kg/m2 [facility] [place], [place] 03-01-2020 11:09-0500 Body Temperature 97.59 [degF] [facility] [place] 03-01-2020 11:09-0500 Body weight 147.[address] [place] , [place] 03-01-2020 11:09-0500 Height 177.[address] [facility] [place] [facility] [place] 03-01-2020 11:09-0500 Respiratory Rate 16 /min Navneet Jackson [facility] [place] 01-23-2020 19:43-0400 Body Temperature 98.29 [degF] Tiffani Larry [facility] [place] 01-23-2020 19:43-0400 BP Diastolic 83 mm[Hg] [facility] [place] [facility] [place] 01-23-2020 19:43-0400 BP Systolic 156 mm[Hg] Tiffani Larry [facility] [place] [facility] [place] 01-23-2020 19:43-0400 Pulse (Heart Rate) 76 /min Tiffani Kendy [facility] [place], [place] 01-23-2020 19:43-0400 Pulse Oximetry 94 % Tiffani [facility] , [place] 01-23-2020 19:43-0400 Respiratory Rate 18 /min Tiffani [facility], [facility] 04-07-2019 11:13-0500 Diastolic blood pressure 86 mm[Hg] Abimael Elizabeth DO Work Phone: [facility] Work Phone: 04-07-2019 11:13-0500 Heart rate 58 /min Abimael Elizabeth DO Work Phone: [facility] Work Phone: 04-07-2019 11:13-0500 SaO2% (BldA) [Mass fraction] 97 % Abimael Glenn DO Work Phone: [facility] Work Phone: 04-07-2019 11:13-0500 Systolic blood pressure 140 mm[Hg] Abimael Glenn DO Work Phone: [facility] Work Phone: 04-07-2019 11:08-0500 Body height 177.8 cm Abimael Glenn DO Work Phone: [facility] Work Phone: 04-07-2019 11:08-0500 Body mass index (BMI) [Ratio] 46.63 kg/m2 Abimael Glenn DO Work Phone: [facility] Work Phone: 04-07-2019 11:08-0500 Body weight 147.42 kg Abimael Elizabeth DO Work Phone: [facility] Work Phone: Encounters Encounter Date Encounter Type Care Provider Facility Start: 03-10-2025 ambulatory Kasia Jimbo Facility:[facility] Start: 02-22-2025 ambulatory Kasia Jimbo Facility:[facility] Start: 02-10-2025 End: 02-10-2025 Office outpatient visit 15 minutes Reji Maradiaga MD Work Phone: [facility] Comment on above: Urinary retention (P rimary Dx); Bladder spasms; Elevated PSA; Benign prostatic hyperplasia with nocturia Start: 02-10-2025 End: 02-10-2025 Orders Only Reji Maradiaga MD Work Phone: [facility] Comment on above: Bladder spasms Start: 02-09-2025 ambulatory Abimael Elizabeth Facilit y:[facility] Start: 02-09-2025 End: 02-09-2025 ambulatory Abimael Elizabeth Facility:[facility] Start: 02-05-2025 End: 02-09-2025 ambulatory Tiffani Navas RN [place] [facility] Start: 02-05-2025 End: 02-09-2025 Patient encounter procedure Tiffani Navas RN [facility] Communication Start: 02-05-2025 End: 02-05-2025 Telephone encounter Gio Monge MD Work Phone: [facility] Comment on above: Other Start: 01-29-2025 End: 01-29-2025 Emergency department patient visit ABIMAELBAUDILIO ELIZABETH [facility] Start: 01-26-2025 ambulatory Abimael Elizabeth Facilit y:[facility] Start: 01-26-2025 Non-patient / Non-visit Yola STEVENSON -[facility] Start: 01-26-2025 Registered Recurring Yola [facility] Work Phone: Start: 01-26-[address] Sigifredo Choi MD -Laboratory Work Phone: Start: 01-26-2025 End: 01-26-[address] Abimael Elizabeth DO Work Phone: -[facility] Start: 01-26-2025 End: 01-26-[address] Kasia Choi MD -[facility] Work Phone: Start: 01-26-2025 End: 01-26-2025 ambulatory Kasia Choi Facility:[facility] Start: 01-22-2025 End: 01-22-2025 Telephone encounter Abimael Moseley MD Work Phone: [facility] Start: 01-21-2025 End: 01-24-2025 Evaluation and management of inpatient Vani Muñiz MD Work Phone: [facility] Observation Unit 5E Comment on above: Bladder spasm (Prima ry Dx); Lower abdominal pain; Urinary tract infection associated with indwelling urethral catheter, initial encounter; Urine retention Start: 01-20-2025 End: 01-23-2025 Telephone encounter Reji Maradiaga MD Work Phone: [facility] Start: 01-20-2025 End: 01-20-2025 Office outpatient visit 25 minutes Reji Maradiaga MD Work Phone: [facility] Comment on above: Urinary retention (P rimary Dx); Benign prostatic hyperplasia with nocturia; Bladder spasms; Elevated PSA Start: 01-20-2025 End: 01-20-2025 ambulatory REJI MARADIAGA [facility] Start: 01-19-2025 ambulatory Abimael Elizabeth Facilit y:[facility] Start: 01-19-2025 [facility] Start: 01-17-2025 End: 01-17-2025 Emergency department patient visit Byron Yin MD Work Phone: [facility] EMERGENCY DEPT Comment on above: Gross hematuria (Kya carlo Dx); Mendoza catheter in place; Urinary retention; Bladder spasms Start: 01-14-2025 End: 01-16-2025 ambulatory Hitesh Nava Facility:[facility] Start: 01-14-2025 End: 01-16-2025 Evaluation and management of inpatient Augusto Duque MD -[facility] Work Phone: Start: 01-14-2025 End: 01-16-2025 observation encounter NON STAFF [facility] Work Phone: Start: 01-13-2025 End: 01-14-2025 Emergency department patient visit Lee Wise Facility:[facility] Start: 01-12-2025 ambulatory Abimael Elizabeth Facilit y:[facility] Start: 01-12-2025 Non-patient / [facility] Start: 01-12-2025 End: 01-24-2025 Follow-up encounter Reji Maradiaga MD Work Phone: [facility] Comment on above: MR pelvis w and wo c ontrast Start: 01-12-2025 End: 01-13-2025 Telephone encounter Reji Maradiaga MD Work Phone: [facility] Comment on above: Results (MRI) Results (MRI); Biops y (Scheduling) Start: 01-10-2025 End: 01-10-2025 Subsequent hospital visit by physician Reji Maradiaga MD Work Phone: [facility] [address] Comment on above: Elevated PSA Start: 01-10-2025 End: 01-10-2025 ambulatory ABIMAEL ELIZABETH [facility] Start: 01-05-2025 End: 01-05-2025 Telephone encounter [facility] Start: 01-05-2025 Non-patient / Non-visit Dr. Lizzy Ballard MD -[facility] Work Phone: Start: 01-05-2025 End: 01-10-[address] Abimael Elizabeth DO Work Phone: [facility] Start: 01-05-2025 End: 01-10-2025 Discharged Recurring Yola [facility] Work Phone: Start: 01-03-2025 End: 01-05-2025 Telephone encounter Reji Maradiaga MD Work Phone: [facility] Comment on above: Results (PSA) Start: 01-02-2025 End: 01-02-2025 Office outpatient visit 25 minutes Reji Maradiaga MD Work Phone: [facility] Comment on above: Incomplete bladder e mptying (Primary Dx); Nocturia; Frequency of urination; Benign prostatic hyperplasia with nocturia; Elevated PSA Start: 01-02-2025 End: 01-02-2025 Orders Only Reji Maradiaga MD Work Phone: [facility] Comment on above: Benign prostatic hyp erplasia with nocturia; Incomplete bladder emptying Start: 12-29-2024 ambulatory Abimael Elizabeth Facilit y:[facility] Start: 12-29-2024 Non-patient / Non-visit Yola Sepulveda PA -[facility] Start: 12-22-2024 ambulatory Yola Sepulveda Facility:[facility] Start: 12-22-2024 Non-patient / Non-visit Yola Sepulveda PA -[facility] Start: 12-08-2024 Non-patient / Non-visit Yola Sepulveda PA -[facility] Start: 12-08-2024 End: 12-11-[address] Abimael Elizabeth DO Work Phone: [facility] Start: 12-08-2024 End: 12-11-2024 Discharged Recurring Yola Sepulveda ID -[facility] Work Phone: Start: 12-01-2024 ambulatory SENAIT HERNANDEZ Facility :[facility] Start: 12-01-2024 Non-patient / Non-visit Yola Sepulveda PA -[facility] Start: 11-23-2024 Non-patient / Non-visit Chacha gomez FINANCIAL PLANNING CONSULTANT-C -[facility] Start: 11-09-2024 Non-patient / Non-visit Chacha gomez FINANCIAL PLANNING CONSULTANT-C -[facility] Start: 11-09-2024 End: 11-10-[address] Abimael Elizabeth DO Work Phone: [facility] Start: 11-09-2024 End: 11-10-2024 Discharged Recurring Chacha Dunham FINANCIAL PLANNING CONSULTANT-C -[facility] Work Phone: Start: 11-03-2024 End: 11-03-2024 Subsequent hospital visit by physician Bal [address] Comment on above: Pure hypercholestero lemia Start: 11-03-2024 End: 11-03-2024 ambulatory ABIMAEL ELIZABETH [facility] Start: 11-02-2024 Non-patient / Non-visit Chacha gomez FINANCIAL PLANNING CONSULTANT-C -[facility] Start: 10-26-2024 Non-patient / Non-visit Chacha gomez FINANCIAL PLANNING CONSULTANT-C -[facility] Start: 10-12-2024 Non-patient / Non-visit Chacha gomez FINANCIAL PLANNING CONSULTANT-C -[facility] Start: 10-05-2024 Non-patient / Non-visit Chacha gomez FINANCIAL PLANNING CONSULTANT-C -[facility] Start: 10-05-2024 End: 10-10-2024 Discharged Recurring Chacha Dunham FINANCIAL PLANNING CONSULTANT-C -[facility] [place] Work Phone: Start: 10-05-2024 End: 10-10-[address] Abimael Elizabeth DO Work Phone: -[facility] Start: 08-29-2024 Encounter for other preprocedural examination Suleiman Toribio [facility] Start: 08-25-2024 End: 08-25-[address] Abimael Elizabeth DO Work Phone: [facility] Work Phone: Start: 08-25-2024 End: 08-25-[address] Suleiman Toribio MD -[facility] Work Phone: Start: 08-25-2024 End: 08-25-2024 ambulatory Abimael Elizabeth Facility:[facility] Start: 06-15-2024 End: 06-15-2024 Subsequent hospital visit by physician Tresa Jordan Work Phone: [facility] Non-Invasive Cardiology Comment on above: Palpitations Start: 06-15-2024 End: 06-15-2024 ambulatory [facility] Start: 06-10-2024 End: 09-09-2024 Transcribe Orders Tresa Jordan RN [facility] Central Scheduling Comment on above: Palpitations (Primar y Dx) Start: 05-17-2024 End: 08-16-2024 Patient encounter procedure Ruddy Cheatham RN [facility] Communication Comment on above: Other forms of dyspn ea (Primary Dx); Acute cough Start: 05-17-2024 End: 05-17-2024 ambulatory Ruddy Cheatham RN [facility] Clinical Communication Start: 05-17-2024 End: 05-17-2024 Subsequent hospital visit by physician Abimael Elizabeth DO Work Phone: [facility] Radiology Comment on above: Other forms of dyspn ea; Acute cough Start: 01-01-2024 End: 01-01-2024 Orders Only Reji Maradiaga MD Work Phone: [facility] Comment on above: Benign prostatic hyp erplasia with nocturia; Incomplete bladder emptying Start: 01-01-2024 End: 01-01-2024 Office outpatient visit 25 minutes Reji Maradiaga MD Work Phone: [facility] Comment on above: Elevated PSA (Primar y Dx); Incomplete bladder emptying; Nocturia; Weak urinary stream Start: 12-18-2023 End: 12-19-2023 Orders Only Soraya Cazares APRN - STARCH TREATING ASSISTANT Work Phone: [facility] Urology Start: 06-15-2023 End: 06-15-2023 Office outpatient visit 15 minutes Soraya Cazares APRN - STARCH TREATING ASSISTANT Work Phone: [facility] Urology Comment on above: Incomplete bladder e mptying (Primary Dx); Benign prostatic hyperplasia with nocturia; Elevated PSA Start: 05-01-2023 End: 05-01-2023 Subsequent hospital visit by physician Abimael Elizabeth DO Work Phone: [facility] US Comment on above: 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 Low back pain, unspe cified Low back pain, unspe cified (Primary Dx) Start: 04-29-2023 Transcribe Orders Abimael silveira DO Work Phone: [facility] Central Scheduling Comment on above: 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) Start: 04-17-2023 Transcribe Orders Abimael Brown s DO Work Phone: [facility] Outaptient Lab Comment on above: Pure hypercholestero lemia, unspecified (Primary Dx); Essential (primary) hypertension; Benign prostatic hyperplasia without lower urinary tract symptoms; Elevated prostate specific antigen (PSA) Start: 03-03-2023 End: 03-03-2023 Postop follow up visit related to original px Sharon Linton PA-C Work Phone: [facility] Orthopedics and Sports Medicine Comment on above: Digital mucous cyst of finger of left hand; 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 Start: 01-20-2023 ambulatory Sharon Brock Work Phone: [facility] Orthopedic Surg Start: 01-09-2023 Telephone encounter Navneet briceno MD Work Phone: [facility] Comment on above: Surgery Scheduling ( Surgery Scheduling) Start: 01-09-2023 End: 01-09-2023 Subsequent hospital visit by physician Navneet Jackson MD Work Phone: [facility] X-ray Comment on above: Digital mucous cyst of finger of left hand Start: 01-09-2023 End: 01-09-2023 Office outpatient visit 15 minutes Navneet Jackson MD Work Phone: [facility] Comment on above: Digital mucous cyst of finger of left hand; 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; Digital mucous cyst of right hand Start: 12-23-2022 Orders Only Flor viramontes DO Work Phone: [facility] Urology Comment on above: Elevated PSA (Primar y Dx) Start: 12-19-2022 End: 12-19-2022 Patient encounter procedure Flor Barfield DO Work Phone: [facility] Urology Comment on above: Elevated PSA Start: 11-03-2022 Telephone encounter Dean chand ORGANISATIONAL PSYCHOLOGIST - FINANCIAL PLANNING CONSULTANT Work Phone: [facility] Urology Comment on above: Results Start: 10-28-2022 Telephone encounter Dean crystalki ORGANISATIONAL PSYCHOLOGIST - FINANCIAL PLANNING CONSULTANT Work Phone: [facility] Urology Comment on above: Other Start: 05-07-2022 End: 05-07-2022 Office outpatient visit 15 minutes Dean Corina ORGANISATIONAL PSYCHOLOGIST - FINANCIAL PLANNING CONSULTANT Work Phone: [facility] Comment on above: Screening PSA (prost ate specific antigen) (Primary Dx); Benign prostatic hyperplasia with nocturia; Lack of energy Start: 05-02-2022 End: 05-02-2022 Transcribe Orders Mitzy Richter ORGANISATIONAL PSYCHOLOGIST - STARCH TREATING ASSISTANT Work Phone: [facility] Laboratory Comment on above: Encounter for screen ing for malignant neoplasm of prostate (Primary Dx) Start: 02-06-2022 End: 02-06-2022 [facility] Work Phone: Start: 02-06-2022 End: 02-06-2022 Discharged Recurring [facility] Therapy Start: 12-20-2021 ambulatory [facility] Start: 12-20-2021 End: 12-20-2021 Subsequent hospital visit by physician Abimael Elizabeth DO Work Phone: [facility] Start: 10-24-2021 ambulatory [facility] Start: 03-05-2020 End: 03-05-2020 Subsequent hospital visit by physician Navneet Jackson Work Phone: [facility] [place] [facility] Comment on above: S/P surgical amputat ion of finger, right (Primary Dx) Start: 03-01-2020 End: 03-01-2020 Subsequent hospital visit by physician Navneet Jackson Work Phone: [facility] Comment on above: Arrived Start: 02-20-2020 End: 02-20-2020 Subsequent hospital visit by physician Abimael Elizabeth Work Phone: [facility] Start: 01-23-2020 End: 01-23-2020 Emergency department patient visit Tiffani Larry Work Phone: [facility] ED Comment on above: Cellulitis of right little finger (Primary Dx) Start: 09-20-2019 End: 09-20-2019 Subsequent hospital visit by physician Abimael Elizabeth Work Phone: [facility] Laboratory Start: 04-07-2019 End: 04-07-2019 Subsequent hospital visit by physician Abimael Elizabeth DO Work Phone: [facility] Comment on above: Arrived Start: 12-16-2017 End: 12-21-2017 Patient encounter ALEXANDRA HERNANDEZ REBEKAH [facility] Start: 11-04-2017 End: 11-05-2017 Patient encounter ALEXANDRA ROBLES [facility] Procedures Date Procedure Procedure Detail Performing Clinician Start: 01-21-2025 Assay of troponin quantitative Jade Whitt ORGANISATIONAL PSYCHOLOGIST [employer] Work Phone: Start: 01-21-2025 Urnls dip stick/tabl et reagent auto microscopy Jade Peri ORGANISATIONAL PSYCHOLOGIST [place] STARCH TREATING ASSISTANT Work Phone: Start: 01-21-2025 Ct abdomen & pelvis w/contrast material Jade Whitt ORGANISATIONAL PSYCHOLOGIST - STARCH TREATING ASSISTANT Work Phone: Start: 01-21-2025 Radiologic exam ches t single view Jade Whitt ORGANISATIONAL PSYCHOLOGIST - STARCH TREATING ASSISTANT Work Phone: Start: 01-21-2025 Basic metabolic pane l calcium total Jade Whitt ORGANISATIONAL PSYCHOLOGIST [facility] Work Phone: Start: 01-21-2025 Ecg routine ecg w/le ast 12 lds trcg only w/o i&r Jade Whitt ORGANISATIONAL PSYCHOLOGIST - STARCH TREATING ASSISTANT Work Phone: Start: 01-19-[address] Abimael Elizabeth DO Work Phone: Start: 01-19-2025 Gram stain microscopy D hossein Elizabeth DO Work Phone: Start: 01-19-2025 Microbial culture, routine Dr. Abimael Elizabeth DO Work Phone: Start: 01-17-2025 Ecg routine ecg w/le ast 12 lds trcg only w/o i&r Verena Hidalgo PA-C Work Phone: Start: 01-17-2025 Basic metabolic pane l calcium total Verena STEVENSON-[facility] Work Phone: Start: 01-15-2025 Cystoscopy and transurethral resection of bladder tumor Start: 01-14-2025 Computed tomography of abdomen and pelvis with contrast Start: 01-14-2025 Urine culture Start: 12-22-[address] Abimael Elizabeth DO Work Phone: Start: 12-22-2024 Gram stain microscopy D hossein Elizabeth DO Work Phone: Start: 12-22-2024 End: 12-22-2024 Microbial culture, routine Dr. Abimael jose DO Work Phone: Start: 10-26-[address] Abimael Elizabeth DO Work Phone: Start: 10-26-2024 Gram stain microscopy Agustin Elizabeth DO Work Phone: Start: 10-26-2024 End: 10-26-2024 Microbial culture, routine Dr. Abimael jose DO Work Phone: Start: 05-17-2024 Radiologic exam ches t 2 views Abimael Elizabeth DO Work Phone: Start: 12-18-2023 PSA TOTAL (SCREENING) Oliva Cazares ORGANISATIONAL PSYCHOLOGIST - STARCH TREATING ASSISTANT Work Phone: Start: 04-17-2023 Lipid 1996 panel - S donta or Plasma Abimael Elizabeth DO Work Phone: Start: 11-28-2022 PSA TOTAL (DIAGNOSTI C POST-PROSTATECTOMY) Dean Arriaga ORGANISATIONAL PSYCHOLOGIST - FINANCIAL PLANNING CONSULTANT Work Phone: Start: 05-02-2022 PSA screening Mitzy Richter ORGANISATIONAL PSYCHOLOGIST - STARCH TREATING ASSISTANT Work Phone: Start: 03-01-2020 Blood count complete automated Jose Miguel Adolfo Bhatt Work Phone: Start: 03-01-2020 Comprehensive metabo lic panel Jose Miguel Bhatt Work Phone: Start: 03-01-2020 Ecg routine ecg w/le ast 12 lds w/i&r Jose Miguel Adolfo Bhatt Work Phone: Start: 09-20-2019 [object Object] Abimael Elizabeth Comment on above: Testing performed on the [employer] Generation 5600 using an immunometric methodology. Results obtained by different methods should not be used interchangeably. Start: 09-20-2019 Blood count complete auto&auto difrntl wbc Abimael Elizabeth Work Phone: Start: 09-20-2019 Comprehensive metabo lic panel Abimael Elizabeth Work Phone: Start: 09-20-2019 Lipid panel Abimael andrews Work Phone: Start: 09-20-2019 PSA screening Abimael jose Work Phone: Start: 09-20-2019 Lipid 1996 panel - S donta or Plasma Dean Arriaga ORGANISATIONAL PSYCHOLOGIST - FINANCIAL PLANNING CONSULTANT Work Phone: Start: 04-07-2019 ROUTINE EKG TREADMIL L STRESS TEST Abimael Elizabeth DO Work Phone: Plan of Treatment Date Care Activity Detail Author Start: 10-15-2034 RSV High Risk: (Elde rly (60+) or Population) (1 - 1-dose 75+ series) RSV High Risk: (Elderly (60+) or Population) (1 - 1-dose 75+ series) [facility] Start: 04-17-2028 Lipid panel Lipid Panel [facility] Start: 10-07-2026 DTaP/Tdap/Td vaccine (2 - Td or Tdap) DTaP/Tdap/Td vaccine (2 - Td or Tdap) [facility] Start: 10-07-2026 DTaP/Tdap/Td Vaccine s (2 - Td or Tdap) DTaP/Tdap/Td Vaccines (2 - Td or Tdap) [facility] Start: 10-07-2026 DTaP/Tdap/Td Vaccine s (3 - Td or Tdap) DTaP/Tdap/Td Vaccines (3 - Td or Tdap) [facility] Start: 02-10-2025 End: 02-10-2025 Patient encounter procedure 02/10/2025 8:50 AM EDT Office Visit [facility] [address] [place] [address] Reji Maradiaga MD [address] [place] [phone] [facility] Start: 01-26-2025 End: 01-26-2025 Evaluation of diagnostic study results [facility] Start: 01-20-2025 End: 01-20-2025 Patient encounter procedure 01/20/2025 9:20 AM EDT Office Visit [facility] [address] [place] [phone] Reji Maradiaga MD [address] [place] [phone] [facility] Start: 01-19-2025 End: 01-19-2025 Patient encounter procedure 01/19/2025 8:00 AM EDT Appointment [facility] [address] [place] [phone] Reji Maradiaga MD [address] [place] [phone] [facility] [address] Start: 01-16-2025 [facility] Start: 01-15-2025 [facility] Start: 01-14-2025 Hospital admission [facility] Start: 01-14-2025 Referral to urologist [facility] Start: 01-14-2025 [facility] Start: 01-14-2025 Bacteria identified in Urine by Culture Urine Culture [facility] Start: 01-14-2025 Urine culture [facility] Start: 01-10-2025 End: 01-10-2025 Patient encounter procedure 01/10/2025 1:15 PM EDT Appointment [facility] [address] [place] [address] Reji Maradiaga MD [address] [place] [address] [facility] [address] Start: 01-05-2025 End: 01-05-2026 MR Pelvis WO and W contrast IV MR pelvis w and wo contrast Imaging Routine Elevated PSA Expected: 01/05/2025, Expires: 01/05/2026 [facility] Work Phone: Comment on above: Expected: 01/05/2025 , Expires: 01/05/2026 Start: 12-30-2024 End: 12-30-2024 Patient encounter procedure 12/30/2024 8:40 AM EDT Office Visit [facility] [address] [place] [address] Reji Maradiaga MD [address] [place] [address] [facility] Start: 12-12-2024 COVID-19 Vaccine ( season) COVID-19 Vaccine ( season) [facility] Start: 12-12-2024 Influenza vaccination [facility] Start: 09-19-2024 Lipid panel [facility] Start: 12-28-2023 End: 12-28-2023 Patient encounter procedure [facility] Start: 12-16-2023 End: 06-14-2024 PSA screening PSA Screening Lab Routine Benign prostatic hyperplasia with nocturia Elevated PSA Expected: 12/16/2023 (Approximate), Expires: 06/14/2024 [facility] Work Phone: Comment on above: Expected: 12/16/2023 (Approximate), Expires: 06/14/2024 Start: 12-13-2023 COVID-19 Vaccine ( season) COVID-19 Vaccine () [facility] Start: 12-13-2023 COVID-19 Vaccine ( season) COVID-19 Vaccine ( season) [facility] Start: 12-13-2023 Influenza vaccination [facility] Start: 06-15-2023 End: 06-15-2023 Patient encounter procedure 06/15/2023 3:00 PM EST Office Visit [facility] Urology [address] [facility] [address] [place] [phone] Soraya Cazares, ORGANISATIONAL PSYCHOLOGIST - STARCH TREATING ASSISTANT [address] [place], [place] [phone] [facility] Start: 05-06-2023 End: 05-06-2023 Patient encounter procedure [facility] Start: 03-24-2023 End: 12-24-2023 PSA, total and free PSA, total and free Lab Routine Elevated PSA Expected: 03/24/2023 (Approximate), Expires: 12/24/2023 [facility] Work Phone: Comment on above: Expected: 03/24/2023 (Approximate), Expires: 12/24/2023 Start: 03-03-2023 End: 03-03-2023 Patient encounter procedure 03/03/2023 2:30 PM EST Office Visit [facility] [address] [place] [phone] Sharon Linton PA-C [address] [facility] [address] [place], [place] [phone] [facility] Start: 02-20-2023 End: 02-20-2023 Admission to same day surgery center 02/20/2023 12:00 PM EST - 02/20/2023 12:45 PM EST Surgery [facility] MA[facility] OR [address] [place] [phone] Navneet Jackson MD [address] [facility] [address] [place], [place] [phone] LEFT MIDDLE FINGER DIGITAL MUCOUS CYST WITH POSSIBLE LOCAL TISSUE ADVANCEMENT [42896 (CPT )] [facility] Comment on above: LEFT MIDDLE FINGER D IGITAL MUCOUS CYST WITH POSSIBLE LOCAL TISSUE ADVANCEMENT [25842 (CPT )] Start: 02-20-2023 End: 02-20-2023 Exc lesion tdn shth/jt capsl hand/fngr EXCISION OF LEASION OF TENDON SHEATH OR LOINT CAPSULE HAND OR FINGER Ganglion, left hand 02/20/2023 12:00 PM EST [facility] Operating Room Start: 02-20-2023 Subsequent hospital visit by physician 02/20/2023 12:00 PM EST Hospital Encounter [facility] [address] [place] [address] Urbano, Navneet Bailon MD [address] [facility] [address] [place] [address] [facility] Start: 01-09-2023 End: 01-10-2024 XR Finger 2 Views [facility] Work Phone: Comment on above: Expected: 01/09/2023 , Expires: 01/10/2024 Once for 1 Occurrenc es starting 01/09/2023 until 01/09/2023 Start: 12-19-2022 End: 12-19-2022 Patient encounter procedure 12/19/2022 8:20 AM EDT Procedure Visit [facility] Urology [address] [place] [phone] Flor Barfield DO [address] [place] [address] [facility] Start: 12-12-2022 COVID-19 Vaccine ( season) COVID-19 Vaccine ( season) [facility] Start: 12-12-2022 Influenza vaccination S [facility] Start: 11-04-2022 End: 05-07-2023 PSA screening PSA Screening Lab Routine Screening PSA (prostate specific antigen) Expected: 11/04/2022 (Approximate), Expires: 05/07/2023 [facility] Work Phone: Comment on above: Expected: 11/04/2022 (Approximate), Expires: 05/07/2023 Start: 10-24-2022 Prostate specific antigen measurement Prostate Specific Antigen (PSA) Screening or Monitoring [facility] Start: 05-07-2022 End: 05-07-2023 Hematocrit [Volume Fraction] of Blood Hematocrit Lab Routine Lack of energy Expected: 05/07/2022 (Approximate), Expires: 05/07/2023 [facility] Comment on above: Expected: 05/07/2022 (Approximate), Expires: 05/07/2023 Start: 05-07-2022 End: 05-07-2023 Testosterone [Mass/volume] in Serum or Plasma Testosterone Lab Routine Lack of energy Expected: 05/07/2022 (Approximate), Expires: 05/07/2023 [facility] Comment on above: Expected: 05/07/2022 (Approximate), Expires: 05/07/2023 Start: 05-05-2022 End: 05-05-2022 Patient encounter procedure 05/05/2022 Office Visit Urology Mitzy Richter, ORGANISATIONAL PSYCHOLOGIST - STARCH TREATING ASSISTANT [address] [place] [address] [facility] [place] Start: 12-12-2021 Influenza vaccination [facility] Start: 03-01-2021 Creatinine measurement Creatinine mo [facility], [place] Start: 03-01-2021 Potassium monitoring Potassium monit [facility], [place] Start: 09-19-2020 Creatinine measurement Creatinine mo [facility], [place] Start: 09-19-2020 Potassium monitoring Potassium monit [facility], [place] Start: 03-13-2020 End: 03-13-2020 Office Visit [facility] [place] Start: 03-05-2020 Hospital Encounter 03/05/2020 Hospital Encounter IP Unit Urbano, Navneet Bailon MD [address] [place] [address] [phone] Natasha Mendez Dept Start: 12-13-2019 Influenza vaccination [place] Start: 2019 RSV Immunization age d 60 or older (1 - 1-dose 60+ series) RSV Immunization aged 60 or older (1 - 1-dose 60+ series) [facility] Start: 2019 RSV Immunization for Adults (1 - Risk 60-74 years 1-dose series) RSV Immunization for Adults (1 - Risk 60-74 years 1-dose series) [facility] Start: 12-12-2018 Influenza vaccination Flu vaccine (# 1) [facility] Work Phone: Start: 10-15-2009 Colon cancer screen colonoscopy Colon cancer screen colonoscopy [facility] Work Phone: Start: 10-15-2009 Pneumococcal vaccination Pneum ococcal Vaccine (1 of 1 - PCV) [facility] Start: 10-15-2009 Screening for malign ant neoplasm of colon Colon cancer screen colonoscopy [place], [place] Start: 10-15-2009 Shingles Vaccine (1 of 2) Shingles Vaccine (1 of 2) [facility] Start: 10-15-2009 Zoster Vaccines (1 of 2) Zoster Vacc damon (1 of 2) [facility] Start: 10-15-2004 Screening for malign ant neoplasm of colon [facility] Start: 1999 Diabetes screen Diabetes screen [facility] Work Phone: Start: 1999 Lipid panel Lipid screen [place], [place] Start: 1999 Lipid screen Lipid screen [facility] Work Phone: Start: 10-15-1978 DTaP/Tdap/Td vaccine (1 - Tdap) DTaP/Tdap/Td vaccine (1 - Tdap) [place] Start: 10-15-1978 Pneumococcal Vaccine : 50+ Years (1 of 2 - PCV) Pneumococcal Vaccine: 50+ Years (1 of 2 - PCV) [facility] Start: 10-15-1977 Diabetes mellitus screening Diabetes Screening [facility] Start: 10-15-1977 Hepatitis C screening [facility] Start: 10-15-1974 HIV screen HIV screen [facility] Work Phone: Start: 10-15-1974 HIV screening HIV screen [facility] Start: 1971 Depression Screen Depression Screen [facility] Start: 1971 Depression Screening Depression Scre ening [facility] Start: 10-15-1970 DTaP/Tdap/Td vaccine (1 - Tdap) DTaP/Tdap/Td vaccine (1 - Tdap) [facility] Work Phone: Start: 10-15-1960 MMR Vaccines (1 of 1 - Standard series) MMR Vaccines (1 of 1 - Standard series) [facility] Start: 04-17-1960 COVID-19 Vaccine (#1) COVID-19 Vacci ne (#1) [facility] Start: 1959 Annual wellness visit Medicare Initial Physical (IPPE) [facility] Start: 1959 Creatinine measurement Creatinine mo nitoring [place], [place] Start: 1959 Creatinine monitoring Creatinine mon itoring [facility] Work Phone: Start: 1959 Hepatitis B Vaccines (1 of 3 - 3-dose series) Hepatitis B Vaccines (1 of 3 - 3-dose series) [facility] Start: 1959 Hepatitis C screen Hepatitis C scree n [facility] Work Phone: Start: 1959 Hepatitis C screening Hepatitis C sc reen [place], [place] Start: 1959 HIV screening HIV Screening [facility] Start: 1959 Medicare Annual Well ness (AWV) Medicare Annual Wellness (AWV) [facility] Start: 1959 Potassium monitoring Potassium monit oring [facility] Work Phone: Start: 1960 Screening for malign ant neoplasm of colon [facility] Start: 1960 Yearly Adult Physical Yearly Adult P [facility] End: 03-05-2020 Blood glucose - POCT Blood glucose - POCT Point of Care Testing STAT One Time for 1 Occurrences starting 03/05/2020 until 03/05/2020 [place] Comment on above: One Time for 1 Occur rences starting 03/05/2020 until 03/05/2020 End: 06-15-2024 Cardiac event monitor (14 days) [facility] Work Phone: Comment on above: Once for 1 Occurrenc es starting 06/15/2024 until 06/15/2024 End: 03-05-2020 Creatinine [Mass/Vol] Creatinine, serum Lab STAT One Time for 1 Occurrences starting 03/05/2020 until 03/05/2020 [facility] Comment on above: One Time for 1 Occur rences starting 03/05/2020 until 03/05/2020 End: 11-03-2024 CT for calcium scoring WO contrast and CTA W contrast IV Heart and coronary arteries [facility] Service Area Work Phone: Comment on above: Once for 1 Occurrenc es starting 11/03/2024 until 11/03/2024 CTA Heart and Heard ry arteries W contrast IV [facility] EKG 12 Lead EKG 12 Lead ECG Routine 03/01/2020 11:35 AM EST [facility] End: 03-05-2020 Intermittent pulse oximetry Pulse Oximetry Spot Check Respiratory Care Routine One Time for 1 Occurrences starting 03/05/2020 until 03/05/2020 [facility] Comment on above: One Time for 1 Occur rences starting 03/05/2020 until 03/05/2020 End: 01-10-2025 MR Pelvis WO and [facility] Work Phone: Comment on above: Once for 1 Occurrenc es starting 01/10/2025 until 01/10/2025 OUTSIDE PROCEDURE SCAN OUTSIDE P ROCEDURE SCAN Procedures Ordered: 05/02/2022 [facility] Comment on above: Ordered: 05/02/2022 OUTSIDE PROCEDURE SCAN OUTSIDE P ROCEDURE SCAN Procedures Ordered: 04/30/2023 [facility] Comment on above: Ordered: 04/30/2023 OUTSIDE PROCEDURE SCAN OUTSIDE P ROCEDURE SCAN Procedures Ordered: 04/17/2023 [facility] Comment on above: Ordered: 04/17/2023 OUTSIDE PROCEDURE SCAN OUTSIDE P ROCEDURE SCAN Procedures Ordered: 05/01/2023 [facility] Comment on above: Ordered: 05/01/2023 OUTSIDE PROCEDURE SCAN OUTSIDE P ROCEDURE SCAN Procedures Ordered: 05/17/2024 [facility] Comment on above: Ordered: 05/17/2024 Oxygen therapy [[facility] Data Set] Initiate Oxygen Therapy Protocol Respiratory Care Routine Daily until discontinued starting 03/05/2020 [facility] Comment on above: Daily until disconti nued starting 03/05/2020 Patient Education Know your Meds [facility] Work Phone: Patient referral [facility] Work Phone: Phase I & II - meter ed glucose Phase I & II - metered glucose Point of Care Testing Routine As Needed until discontinued starting 03/05/2020 [facility] above: As Needed until disc ontinued starting 03/05/2020 End: 03-05-2020 Potassium w/ Reflex to Magnesium Potassium w/ Reflex to Magnesium Lab Routine One Time for 1 Occurrences starting 03/05/2020 until 03/05/2020 [facility] on above: One Time for 1 Occur rences starting 03/05/2020 until 03/05/2020 End: 03-05-2020 , urine , urine Lab STAT One Time for 1 Occurrences starting 03/05/2020 until 03/05/2020 [facility] Comment on above: One Time for 1 Occur rences starting 03/05/2020 until 03/05/2020 End: 03-05-2020 Protime-INR Protime-INR Lab STAT One Time for 1 Occurrences starting 03/05/2020 until 03/05/2020 [facility] Comment on above: One Time for 1 Occur rences starting 03/05/2020 until 03/05/2020 Spirometry panel Incentive krzysztof metry Respiratory Care Routine Q1H PRN until discontinued starting 03/05/2020 [facility] Comment on above: Q1H PRN until discon tinued starting 03/05/2020 [facility] Work Phone: [facility] End: 05-01-2023 [facility] Work Phone: Comment on above: Once for 1 Occurrenc es starting 05/01/2023 until 05/01/2023 XR Hand - right 3 Views XR hand 3+ views right Imaging Routine 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 01/09/2023 10:20 AM EDT [facility] End: 02-20-2020 XR HAND RIGHT (MIN 3 VIEWS) XR HAND RIGHT (MIN 3 VIEWS) Imaging Routine Once for 1 Occurrences starting 02/20/2020 until 02/20/2020 [facility] Comment on above: Once for 1 Occurrenc es starting 02/20/2020 until 02/20/2020 XR HAND RIGHT (MIN 3 VIEWS) XR HAND RIGHT (MIN 3 VIEWS) Imaging Routine 02/20/2020 5:00 PM EST [facility] End: 05-01-2023 XR Lumbar spine Views W flexion and W extension [facility] Work Phone: Comment on above: Once for 1 Occurrenc es starting 05/01/2023 until 05/01/2023 End: 12-20-2021 XR Shoulder Right 2 [facility] [employer] Work Phone: Comment on above: Once for 1 Occurrenc es starting 12/20/2021 until 12/20/2021 Immunizations Immunization Date Immunization Notes Care Provider Fa monica 02-01-2014 influenza virus vaccine, unspecified formulation Reji Maradiaga MD Work Phone: [facility] NEGATED: Highlighted row has not occurred!01-21-2025 Seasonal trivalent influenza vaccine, adjuvanted, preservative free Abimael Moseley MD Work Phone: [facility] Comment on above: Deferred: Patient Re fused - Pt educated on benefits of flu shot. Pt insisted refusal. Payers Date Payer Category Payer Medicare MEDICARE PART A AND B [id number] 2025 Medicare supplementa l policy (as second payer) [id number] 2025 Medicare [id number] 2025 Unknown [id number] 2024 Self-pay [id number] 2016 Commercial Managed C are - HMO [facility] UMR OPT [id number] 2016 Managed Care (Private) [facility] [employer] [id number] 2016 Private Health Insurance [id number] 2014 Unknown [facility] UMR xxxxxxxx 2014-Present [address] [place] [phone] xxxxxxxx [id number] [id number] 2014 Unknown [id number] [id number]. 2.7.3.478611.315 1959 Unknown [id number] 2.16.840.1.013163.3.579. 2.668 1959 Unknown [id number] 2.16.840.1.116054.3.579. 2.668 1959 Unknown [id number] 2.16.840.1.886692.3.579. 2.1243 1959 Unknown [id number] 2.16.840.1.110999.3.579. 2.718 Unknown Unknown [id number] 2.16.840.1.456891.3.579. 2.531 Unknown [id number] 2.16.840.1.080538.3.579. 2.462 Unknown [id number] 2..840.1.841327.3.579. 2.462 Unknown [id number] 2..840.1.820426.3.579. 2.462 Unknown [id number] 2.16.840.1.228069.3.579. 2.462 Unknown [id number] 2.16.840.1.764807.3.579. 2.462 Unknown [id number] 2..840.1.838413.3.579. 2.462 Unknown [id number] 2.16.840.1.297612.3.579. 2.462 Unknown [id number] 2.16.840.1.342119.3.579. 2.462 Unknown [id number] 2.16.840.1.400543.3.579. 2.462 Unknown [id number] 2.16.840.1.090406.3.579. 2.462 Unknown [id number] 2.16.840.1.623516.3.579. 2.462 Unknown [id number] 2.16.840.1.711788.3.579. 2.462 Unknown [id number] 2.16.840.1.271417.3.579. 2.462 Unknown [id number] 2.16.840.1.734606.3.579. 2.462 Unknown [id number] 2.16.840.1.570456.3.579. 2.462 Unknown [id number] 2.16.840.1.352486.3.579. 2.462 Unknown [id number] 2.16.840.1.388720.3.579. 2.462 Unknown [id number] 2.16.840.1.338136.3.579. 2.462 Unknown [id number] 2.16.840.1.971523.3.579. 2.462 Unknown [id number] 2.16.840.1.950874.3.579. 2.462 Social History Date Type Detail Facility Start: 04-07-2019 End: 12-19-2022 Tobacco smoking status OKIS Former smoker [facility] Phone: End: 04-13-1980 History of tobacco use Current smoker [facility] Phone: End: 04-13-1980 History of tobacco use Cigarette Smoker [facility] Phone: Start: 04-07-2019 End: 01-24-2025 Cigarettes smoked current (pack per day) - Reported [facility] Start: 1960 Sex Assigned At Not on file [facility] Phone: Start: 04-07-2019 End: 12-19-2022 Tobacco use and exposure Never used [place] Start: 03-01-2020 End: 01-22-2025 Alcohol intake Current drinker of alcohol (finding) [place] Start: 03-01-2020 Alcohol Comment occasiional [place] Start: 04-27-2022 End: 05-07-2022 Exposure to SARS-CoV-2 (event) Not sure [place] Start: 11-26-2017 Tobacco smoking status OKIS Unknown if ever smoked [facility] Work Phone: Start: 1960 Sex Assigned At Male [facility] Start: 10-07-2021 End: 01-24-2025 Tobacco use panel [facility] Start: 11-11-2021 Sex Male (finding) [facility] Start: 10-31-2024 Sex Male [facility] Start: 11-03-2024 Gender identity Identifies as male gender (finding) [facility] Start: 01-14-2025 End: 01-14-2025 Tobacco smoking status NHIS Never smoked tobacco (finding) [facility] How often to you hav e a drink containing alcohol? Never [facility] Within the last year , have you been afraid of your partner or ex-partner? No [facility] Are you now , , , , never or living with a partner? [facility] How often to you hav e a drink containing alcohol? 4 or more times a week [facility] How many standard drinks containing alcohol do you have on a typical day? 1 or 2 [facility] Start: 01-22-2025 Sexual orientation Heterosexual (finding) [facility] (I/We) worried lori er (my/our) food would run out before (I/we) got money to buy more. Never true [facility] Medical Equipment Procedure Code Equipment Code Equipment Origin al Text Equipment Identifier Dates BISI MOON FDA Start: 12-03-2017 BISI MOON FDA Start: 12-03-2017 BISI MOON FDA Start: 12-03-2017 BISI MOON FDA Start: 12-03-2017 BISI MOON FDA Start: 12-03-2017 BISI MOON FDA Start: 12-03-2017 BISI MOON FDA Start: 12-03-2017 BISI MOON FDA Start: 12-03-2017 BISI MOON FDA Start: 12-03-2017 BISI MOON FDA Start: 12-03-2017 BISI MOON FDA Start: 12-03-2017 BISI MOON FDA Start: 12-03-2017 BISI MOON FDA Start: 12-03-2017 SARAI,BISI FISCHER FDA Start: 12-03-2017 SARAI,BISI FISCHER FDA Start: 12-03-2017 SARAI,BISI FISCHER FDA Start: 12-03-2017 BISI MOON FDA Start: 12-03-2017 BISI MOON FDA Start: 12-03-2017 BISI MOON FDA Start: 12-03-2017 SARAI,BISI FISCHER FDA Start: 12-03-2017 BISI MOON FDA Start: 12-03-2017 Goals Date Patient Goal Desired Activity /State Functional Status Date Assessment Result Facility 01-17-2025 Total score [AUDIT-C] 0 01/18/20 25 12:26 PM EDT Shania Ontiveros RN [facility] 01-16-2025 Functional status Patient is Pro gressing Toward Baseline [facility] Work Phone: [facility] Mental Status Date Assessment Result Facility 01-16-2025 Cognitive function Cognitive Sta tus Patient at Baseline [facility] Work Phone: Clinical Notes 04-07-2019 to 02-10-2025 Reji Maradiaga MD - 02/10/2025 8:50 AM EDTTelephone Encounter - Gio Monge MD - 02/05/2025 11:38 AM EDTTelephone Encounter - Gio Monge MD - 02/05/2025 11:38 AM EDTDischarge Instructions Note Date & Type Note Facility 02-10-2025 History of Presen t illness Narrative Images from the original note were not included. Reji Maradiaga MD 02/10/2025 at 8:01 PM OFFICE FOLLOW-UP VISIT PATIENT NAME: Stephane Toribio DATE OF : 1960 TODAY'S DATE: 02/10/2025 CHIEF COMPLAINT: Chief Complaint Patient presents with Other Discuss MRI results, catheter pains (sharp) Would like to discuss catheter changing schedule, fears of bleeding if changed Needs script altered for spasms to x2 a day (vesicare) Subjective: Mr. Toribio is a 64 y.o. male who presents to the office for follow up of urinary retention. See below for past history. His bladder spasms under much better control now with the solifenacin. Dr. Moseley assessed the patient while inpatient and determined that the patient would be better suited with holmium laser nucleation of the prostate. Referral has been made to Dr. Vishnu Monique at [facility] Review of Systems Past Medical History: Medical History[1] Past Surgical History: Surgical History[2] Allergies: Dust mite extract and Molds & smuts Social History: Issues identified in the H&P were noted Family History: Family History[3] Medications Prior to Admission medications Medication Sig Start Date End Date Taking? Authorizing Provider aspirin 81 MG EC tablet Take 81 mg by mouth in the morning. Historical Provider, cholecalciferol (Vitamin D-3) 50 MCG (1999) capsule Take 5,000 Units by mouth. Historical Provider, esomeprazole (NexIUM) [address] capsule Take 40 mg by mouth. Historical Provider, finasteride (Proscar) 5 MG tablet Take 1 tablet (5 mg) by mouth daily. 01/02/25 04/02/25 Reji Maradiaga MD lisinopril 20 MG tablet Take 20 mg by mouth. Historical Provider, melatonin 5 MG tablet Take 5 mg by mouth. Historical Provider, montelukast (Singulair) 10 MG tablet Take 10 mg by mouth Nightly. Historical Provider, Multiple Vitamin (Multi-Vitamin) tablet Take 1 tablet by mouth in the morning. Historical Provider, naproxen (Naprosyn) 500 MG tablet Take 500 mg by mouth every 12 hours as needed. With food or milk Historical Provider, phenazopyridine (Pyridium) 200 MG tablet Take 1 tablet (200 mg) by mouth 3 times daily. 01/24/25 02/23/25 Emigdio Joya MD solifenacin (VESIcare) 10 MG tablet Take 1 tablet (10 mg) by mouth 2 times daily. Swallow tablet whole; do not crush, chew, or split. 02/10/25 03/12/25 Reji Maradiaga MD tamsulosin (Flomax) 0.4 MG 24 hr capsule 2 capsules Every 24 hours. 02/13/24 Historical Provider, solifenacin (VESIcare) 10 MG tablet Take 1 tablet (10 mg) by mouth daily. Swallow tablet whole; do not crush, chew, or split. 01/20/25 02/10/25 Reji Maradiaga MD sulfamethoxazole-trimethoprim (Bactrim DS) 800-160 MG tablet Take 1 tablet by mouth 2 times daily for 5 days. Patient not taking: Reported on 02/10/2025 02/05/25 02/10/25 Gio Monge MD Vitals: BP 113/64 (BP Location: Left arm, Patient Position: Sitting, BP Cuff Size: Adult long) Pulse 64 Physical Exam Physical Exam Constitutional: Appearance: Normal appearance. HENT: Head: Normocephalic and atraumatic. Eyes: Extraocular Movements: Extraocular movements intact. Pulmonary: Effort: Pulmonary effort is normal. Musculoskeletal: General: Normal range of motion. Cervical back: Normal range of motion. Neurological: General: No focal deficit present. Mental Status: He is alert and oriented to person, place, and time. Psychiatric: Mood and Affect: Mood normal. Behavior: Behavior normal. Thought Content: Thought content normal. Judgment: Judgment normal. LABS: Lab Results Component Value Date PSA 4.588 (H) 05/02/2022 PSA 4.256 (A) 10/24/2021 PSA 3.523 09/20/2019 Lab Results Component Value Date TESTOSTERONE 391 05/13/2022 Lab Results Component Value Date WBC 11.4 (H) 01/21/2025 HGB 13.0 01/21/2025 HCT 38.7 (L) 01/21/2025 MCV 87.4 01/21/2025 PLT 255 01/21/2025 Lab Results Component Value Date GLUCOSE 121 (H) 01/21/2025 CALCIUM 9.5 01/21/2025 NA 139 01/21/2025 K 4.1 01/21/2025 CO2 22 (L) 01/21/2025 CL 107 01/21/2025 BUN 16 01/21/2025 CREATININE 1.32 (H) 01/21/2025 Radiology: See below Impression/Plan Stephane was seen today for other. Diagnoses and all orders for this visit: Urinary retention (Primary) Bladder spasms Elevated PSA Benign prostatic hyperplasia with nocturia No follow-ups on file. Since he is not in an institution (hospital or [facility]) I will hold off on changing the catheter at this time. We discussed the reasoning behind not keeping the on continuous oral antibiotic therapy. Topical meatal Neosporin is excellent. Continue finasteride and tamsulosin Bladder spasms controlled with solifenacin 10 mg BID. They have appointment to see Dr. Monique at [facility] to discuss HoLEP. I think this is an excellent surgical choice for him, and I have explained to the patient that he is in good hands with Dr. Monique. Reji Maradiaga MD 02/10/25 8:01 PM Live in [facility]). Brother: Dr. Froylan Toribio. Nephew: Dr. Aden Toribio (ortho). PSA density 0.05 02/10/2025: Call to [place] via Call Center: Bladder spasms controlled with solifenacin 10 mg BID. They have appointment to see Dr. Monique at [facility] to discuss HoLEP. I think this is an excellent surgical choice for him. Discussed the reason why we do not want to keep him on oral antibiotics continuously. Topical meatal Neosporin is excellent. Continue finasteride and tamsulosin 02/05/25 call to call center- catheter was placed when in the hospital for gross hematuria and urinary retention. Also markedly enlarged prostate and was having LUTS. Catheter has been present since 01/15/25. Now having discharge at insertion site. light yellow, mucous in color. Has burning sensation 5/10, it kept him up last night Cathter is working urine has sediment coming out and cloudy. Tiffani [phone] 09:08 LR patient is on the way home from out of town, he is asking if he needs to go to the ED for possible antibiotic and evaluation My response: Does not need to go to ED. Should go to a store Like [email or web address] or a large grocery store and Purchase Triple Antibiotic Ointment or Neosporin Ointment ( not cream), then place some LR around penile meatus-around catheter at the opening of the penis Gio Monge 01/20/2025: Referral for RSPP 01/10/2025: MRI. 197 ml. Motion artifact. Artifact of unclear etiology also somewhat limits DWI and ADC images. 1.1 cm PI RADS-4 nodule anterior left transition zone, mid gland. 0.8 cm PI RADS-3 nodule anterior left transition zone, apex. 0.6 cm PI RADS three nodule anterior right transition zone, base of gland.1.1 cm PI RADS three nodule anterior right transition zone, base of gland. 01/02/2025: PVR 48 ml. Worse LUTS. Add finasteride. PSA ordered 01/01/2024: PVR 13 ml. Nocturia x 1-2, variable stream. Refilled tamsulosin BID. PSA is decreasing. 06/15/2023: OV RAMON: PVR 124 ml. Increase tamsulosin to BID 12/19/2022: TRUS/Bx ([place], 177 ml): benign PSA 01/02/2025: PSA: 9.530 04/18/2024: PSA: 10.300 12/18/2023: PSA: 5.480 10/09/2023: PSA: 8.670 ([place]) 04/20/2023: PSA: 7.200 w/ 31% free ([place]) 11/28/2022: PSA: 7.440 10/31/2022: PSA: 6.670 05/02/2022: PSA: 4.588 10/24/2021: PSA: 4.256 09/20/2019: PSA: 3.523 [1] Past Medical History: Diagnosis Date Benign prostatic hyperplasia 3 or 4 years ago Elevated PSA Late 2020 Erectile dysfunction Summer 2020 H/O exercise stress test Hypertension MACY on CPAP Osteomyelitis (HCC) RIGHT RING FINGER AND SCHEDULED FOR THE SURGERY ON 03/05/[address] [facility] [2] Past Surgical History: Procedure Laterality Date CHOLECYSTECTOMY [facility] COLONOSCOPY COLONOSCOPY FINGER AMPUTATION Right 03/05/2020 right small finger -dr jackson FINGER SURGERY Left [facility] FINGER SURGERY Left 02/20/2023 Mucous cyst excision long finger with with simple primary closure. arthrotomy DIP joint long finger with excision of osteophytes. Dr Jakcson OTHER SURGICAL HISTORY EXCISION OF LIPOMA FROM THE BACK AT SURGERY [facility] LONG TIME AGO SCAPHOID FRACTURE SURGERY Right [facility] WISDOM TOOTH EXTRACTION [3] Family History Problem Relation Name Age of Onset Arthritis Mother Rachel Toribio Arthritis Father Franki Toribio Hearing loss Father Franki Toribio documented in this encounter [facility] 02-05-2025 Telephone encounter Note Form atting of this note might be different from the original. URO 02/05/25 scallop binder- call to call center: I suggested Neosporin or Triple antibiotic ointment around meatus. Patient feels he may have a UTI I E Scribed Bactrim DS one PO BID # 10 [place] [facility] 02-05-2025 Miscellaneous Notes Formattin g of this note might be different from the original. URO 02/05/25 scallop binder- call to call center: I suggested Neosporin or Triple antibiotic ointment around meatus. Patient feels he may have a UTI I E Scribed Bactrim DS one PO BID # 10 [place] documented in this encounter [facility] 02-05-2025 Telephone encounter Note Form atting of this note might be different from the original. S: Patient called the clinical access center with complaint of possible UTI B: Ongoing catheter was placed when in the hospital for gross hematuria and urinary retention. Also markedly enlarged prostate and was having LUTS. Catheter has been present since 01/15/25 A: Patient c/o thinks he may have UTI and has a catheter and has a discharge at insertion site light yellow mucous in color. Has burning sensation 5/10 it kept him up last night Cathter is working urine has sediment coming out and cloudy. Denies fever abdominal pain, feels like his bladder is being emp[tied. Has had 30 ounces of fluid this morning and yesterday he had 100 ounces. R: Paged Dr. Monge in secure chat he is in a procedure. Called made patient aware states they are driving home from out of town should be back in 2 hours. Will await call back. Dr Monge stated Does not need to go to ED. Should go to a store Like [email or web address] or a large grocery store and Purchase Triple Antibiotic Ointment or Neosporin Ointment ( not cream), then place some around penile meatus-around catheter at the opening of the penis. Patient made aware but is concerned about the sediment in the mendoza bag, Asked Dr Monge he stated I e-scribed Bactrim DS one po BID for 5 days. Patient made aware. Home Care advice given. Patient instructed to call back with worsening symptoms, concerns or questions. Patient verbalized understanding. Message to the office for review by the provider and needs recommendation from Provider for treatment going forward. Reason for Disposition [1] Cloudy urine lasts > 24 hours AND [2] not cleared by increased fluid intake Protocols used: Urinary Catheter (e.g., Mendoza) Symptoms and [id number] [facility] 02-05-2025 Miscellaneous Notes Formattin g of this note might be different from the original. S: Patient called the clinical access center with complaint of possible UTI B: Ongoing catheter was placed when in the hospital for gross hematuria and urinary retention. Also markedly enlarged prostate and was having LUTS. Catheter has been present since 01/15/25 A: Patient c/o thinks he may have UTI and has a catheter and has a discharge at insertion site light yellow mucous in color. Has burning sensation 08/20 it kept him up last night Cathter is working urine has sediment coming out and cloudy. Denies fever abdominal pain, feels like his bladder is being emp[tied. Has had 30 ounces of fluid this morning and yesterday he had 100 ounces. R: Paged Dr. Monge in secure chat he is in a procedure. Called made patient aware states they are driving home from out of town should be back in 2 hours. Will await call back. Dr Monge stated Does not need to go to ED. Should go to a store Like [email or web address] or a large grocery store and Purchase Triple Antibiotic Ointment or Neosporin Ointment ( not cream), then place some around penile meatus-around catheter at the opening of the penis. Patient made aware but is concerned about the sediment in the mendoza bag, Asked Dr Monge he stated I e-scribed Bactrim DS one po BID for 5 days. Patient made aware. Home Care advice given. Patient instructed to call back with worsening symptoms, concerns or questions. Patient verbalized understanding. Message to the office for review by the provider and needs recommendation from Provider for treatment going forward. Reason for Disposition [1] Cloudy urine lasts > 24 hours AND [2] not cleared by increased fluid intake Protocols used: Urinary Catheter (e.g., Mendoza) Symptoms and [id number] documented in this encounter [facility] 01-26-2025 Progress note [facility] 01-24-2025 Nurse Note Patient discharged at this time. Patient had IV removed prior to discharge. Patient Left with all documented belongings. AVS reviewed with nurse, all questions answered. Patient taken to main entrance for discharge via wheelchair by NST. [facility] 01-24-2025 Nurse Note Patient discharged at this time. Patient had IV removed prior to discharge. Patient Left with all documented belongings. AVS reviewed with nurse, all questions answered. Patient taken to main entrance for discharge via wheelchair by NST. documented in this encounter [facility] 01-24-2025 Note Hospitalist Discharg e Summary Stephane Toribio : 1960 Admit date: 01/21/2025 Discharge date: 01/24/2025 Admitting Physician: Morteza Rene MD Primary Care Physician: Abimael Elizabeth DO Code Status: Full Code Discharge Diagnoses: BPH with urinary retention Bladder spasms Hypertension MACY CKD Chronic right leg wound Hospital Course: 64-year-old male scented with Mendoza dysfunction on January 21. January 20 evaluated by urology in office and found to have patent Mendoza catheter. Patient did have bladder spasm likely secondary to chronic retention in the setting of very enlarged prostate. The plan is to follow-up outpatient with urology to discuss suprapubic prostatectomy. In the ER family reported intermittent episodes of suprapubic pain and leaking around Mendoza catheter. Catheter was flushed in the ED which led to bladder spasm and slight resistance on the aspiration. Urology evaluated patient for bladder spasms recommending no acute urological surgical intervention at this time. Continue anticholinergic Vesicare 10 mg daily and Pyridium. Follow-up for BPH management with urology. Gradually patient's condition improved. Spasms improved. Patient agreeable with following up as outpatient. Patient also has chronic right leg wound and follows up with wound care. Patient agreeable with treatment plan and eager to go home today. Consults: . Surgery Discharge Instructions: Diet: Dietary Orders (From admission, onward) Start Ordered 01/21/252258 Adult diet Regular Diet effective now Question: Diet type Answer: Regular 01/21/252258 Activity: as tolerated Recommended Outpatient Tests: Disposition: Patient discharged in stable condition to Home. Greater than 31 minutes spent discharging the patient and coming up with patient discharge plan. Vitals: BP 143/81 (BP Location: Left arm, Patient Position: Lying) Pulse 69 Temp 36.2 ?C (97.2 ?F) (Temporal) Resp 16 Ht 5' 10 (1.778 m) Wt (!) 307 lb (139 kg) SpO2 97% BMI 44.05 kg/m? Pulse Ox: SpO2 Av.5 % Min: 96 % Max: 97 % Supplemental O2: Physical Exam Cardiovascular: Rate and Rhythm: Normal rate. Pulmonary: Effort: Pulmonary effort is normal. Abdominal: Palpations: Abdomen is soft. Musculoskeletal: Comments: Right leg dressing noted Neurological: General: No focal deficit present. Mental Status: He is oriented to person, place, and time. Discharge Medications: Medication List CHANGE how you take these medications solifenacin 10 MG tablet Commonly known as: VESIcare Take 1 tablet (10 mg) by mouth daily. Swallow tablet whole; do not crush, chew, or split. What changed: Another medication with the same name was removed. Continue taking this medication, and follow the directions you see here. tamsulosin 0.4 MG 24 hr capsule Commonly known as: Flomax What changed: Another medication with the same name was removed. Continue taking this medication, and follow the directions you see here. CONTINUE taking these medications aspirin 81 MG EC tablet cholecalciferol 50 MCG (1999) capsule Commonly known as: Vitamin D-[address] capsule Commonly known as: NexIUM finasteride 5 MG tablet Commonly known as: Proscar Take 1 tablet (5 mg) by mouth daily. HYDROcodone-acetaminophen 5-325 MG tablet Commonly known as: Monette Take 1 tablet by mouth every 6 hours as needed for severe pain (7-10) for up to 5 days. lisinopril 20 MG tablet melatonin 5 MG tablet montelukast 10 MG tablet Commonly known as: Singulair Multi-Vitamin tablet naproxen 500 MG tablet Commonly known as: Naprosyn phenazopyridine 200 MG tablet Commonly known as: Pyridium Take 1 tablet (200 mg) by mouth 3 times daily. STOP taking these medications acetaminophen 325 MG tablet Commonly known as: Tylenol loratadine 10 MG tablet Commonly known as: Claritin omega-3 1200 MG capsule Commonly known as: Fish Oil omega-3 acid ethyl esters 1 g capsule Commonly known as: Lovaza Prostate Health capsule Where to Get Your Medications These medications were sent to [facility]/pharmacy #[address] [place] [id number] HYDROcodone-acetaminophen 5-325 MG tablet phenazopyridine 200 MG tablet Recommended Follow-up: No follow-up provider specified. Complexity of Follow up: [] Moderate Complexity: follow up within 7-14 calendar days (73258) [x] Severe Complexity: follow up within 7 calendar days (51405) Follow up Testing, Pending results or Referrals at Transitional Care Visit: [x] yes [] no Instructions to MA: Please call patient on day after discharge (must document patient contacted within 2 business days of discharge). Follow up questions for MA: 1. Did you get medications filled and taking them as instructed from discharge? 2. Are you following your discharge instructions from your hospital stay? (more content not included)... [facility] 01-24-2025 Hospital course Narrative Hospitalist Discharge Summary Stephane Toribio : 1960 Admit date: 01/21/2025 Discharge date: 01/24/2025 Admitting Physician: Morteza Rene MD Primary Care Physician: Abimael Elizabeth DO Code Status: Full Code Discharge Diagnoses: BPH with urinary retention Bladder spasms Hypertension MACY CKD Chronic right leg wound Hospital Course: 64-year-old male scented with Mendoza dysfunction on January 21. January 20 evaluated by urology in office and found to have patent Mendoza catheter. Patient did have bladder spasm likely secondary to chronic retention in the setting of very enlarged prostate. The plan is to follow-up outpatient with urology to discuss suprapubic prostatectomy. In the ER family reported intermittent episodes of suprapubic pain and leaking around Mendoza catheter. Catheter was flushed in the ED which led to bladder spasm and slight resistance on the aspiration. Urology evaluated patient for bladder spasms recommending no acute urological surgical intervention at this time. Continue anticholinergic Vesicare 10 mg daily and Pyridium. Follow-up for BPH management with urology. Gradually patient's condition improved. Spasms improved. Patient agreeable with following up as outpatient. Patient also has chronic right leg wound and follows up with wound care. Patient agreeable with treatment plan and eager to go home today. Consults: . Surgery Discharge Instructions: Diet: Dietary Orders (From admission, onward) Start Ordered 01/21/252258 Adult diet Regular Diet effective now Question: Diet type Answer: Regular 01/21/252258 Activity: as tolerated Recommended Outpatient Tests: Disposition: Patient discharged in stable condition to Home. Greater than 31 minutes spent discharging the patient and coming up with patient discharge plan. Vitals: BP 143/81 (BP Location: Left arm, Patient Position: Lying) Pulse 69 Temp 36.2 C (97.2 F) (Temporal) Resp 16 Ht 5' 10 (1.778 m) Wt (!) 307 lb (139 kg) SpO2 97% BMI 44.05 kg/m Pulse Ox: SpO2 Av.5 % Min: 96 % Max: 97 % Supplemental O2: Physical Exam Cardiovascular: Rate and Rhythm: Normal rate. Pulmonary: Effort: Pulmonary effort is normal. Abdominal: Palpations: Abdomen is soft. Musculoskeletal: Comments: Right leg dressing noted Neurological: General: No focal deficit present. Mental Status: He is oriented to person, place, and time. Discharge Medications: Medication List CHANGE how you take these medications solifenacin 10 MG tablet Commonly known as: VESIcare Take 1 tablet (10 mg) by mouth daily. Swallow tablet whole; do not crush, chew, or split. What changed: Another medication with the same name was removed. Continue taking this medication, and follow the directions you see here. tamsulosin 0.4 MG 24 hr capsule Commonly known as: Flomax What changed: Another medication with the same name was removed. Continue taking this medication, and follow the directions you see here. CONTINUE taking these medications aspirin 81 MG EC tablet cholecalciferol 50 MCG (2000 UT) capsule Commonly known as: Vitamin D-[address] capsule Commonly known as: NexIUM finasteride 5 MG tablet Commonly known as: Proscar Take 1 tablet (5 mg) by mouth daily. HYDROcodone-acetaminophen 5-325 MG tablet Commonly known as: Monette Take 1 tablet by mouth every 6 hours as needed for severe pain (7-10) for up to 5 days. lisinopril 20 MG tablet melatonin 5 MG tablet montelukast 10 MG tablet Commonly known as: Singulair Multi-Vitamin tablet naproxen 500 MG tablet Commonly known as: Naprosyn phenazopyridine 200 MG tablet Commonly known as: Pyridium Take 1 tablet (200 mg) by mouth 3 times daily. STOP taking these medications acetaminophen 325 MG tablet Commonly known as: Tylenol loratadine 10 MG tablet Commonly known as: Claritin omega-3 1200 MG capsule Commonly known as: Fish Oil omega-3 acid ethyl esters 1 g capsule Commonly known as: Lovaza Prostate Health capsule Where to Get Your Medications These medications were sent to [facility]/pharmacy #[id number] [address] HYDROcodone-acetaminophen 5-325 MG tablet phenazopyridine 200 MG tablet Recommended Follow-up: No follow-up provider specified. Complexity of Follow up: [] Moderate Complexity: follow up within 7-14 calendar days (26216) [x] Severe Complexity: follow up within 7 calendar days (66129) Follow up Testing, Pending results or Referrals at Transitional Care Visit: [x] yes [] no Instructions to MA: Please call patient on day after discharge (must document patient contacted within 2 business days of discharge). Follow up questions for MA: 1. Did you get medications filled and taking them as instructed from discharge? 2. Are you following your discharge instructions from your hospital stay? 3. Please confirm patient is scheduled for a follow up appointment within the above time frame. Signed: Emigdio Moreno MD Division of Hospitalist Medicine Acute [facility] 01/24/2025, 1:42 PM documented in this encounter [facility] 01-23-2025 Note Urology Plan of Care Called to bedside per RN w/ concerns for additional bladder spasms and catheter pain. DW patient regarding symptoms. Per patient, he feels the urge to urinate and feels he needs to push to urinate which causes his leakage around catheter. This does not happen at rest. Patient has been trialed on multiple antispasmodics at this time. At this time, patient's urgency pattern appear to be voluntary pain response rather than true bladder spasms. Per patient still endorsing some small clots in urine. Planning for possible Holep w/ Dr. Monique at [facility]. Discussed w/ patient about need for catheter given chronic retention symptoms and episode of AUR in setting of massive prostate. Patient w/ CYU in bag. Patient agreeable to plan. At this time, Urology will sign off. Will coordinate outpatient follow up. Please page automation tester urology resident with any questions or concerns. Isaak Ramires Urology PGY-1 01/23/2025 4:55 PM Please page Pattern Repair Person Urology Resident with questions [facility] 01-23-2025 Plan of care note Images from the original note were not included. Urology Plan of Care Called to bedside per RN w/ concerns for additional bladder spasms and catheter pain. DW patient regarding symptoms. Per patient, he feels the urge to urinate and feels he needs to push to urinate which causes his leakage around catheter. This does not happen at rest. Patient has been trialed on multiple antispasmodics at this time. At this time, patient's urgency pattern appear to be voluntary pain response rather than true bladder spasms. Per patient still endorsing some small clots in urine. Planning for possible Holep w/ Dr. Monique at [facility]. Discussed w/ patient about need for catheter given chronic retention symptoms and episode of AUR in setting of massive prostate. Patient w/ CYU in bag. Patient agreeable to plan. At this time, Urology will sign off. Will coordinate outpatient follow up. Please page automation tester urology resident with any questions or concerns. Isaak Ramires Urology PGY-1 01/23/2025 4:55 PM Please page Pattern Repair Person Urology Resident with questions [facility] Phone: 01-23-2025 Miscellaneous Notes Images from the original note were not included. Urology Plan of Care Called to bedside per RN w/ concerns for additional bladder spasms and catheter pain. DW patient regarding symptoms. Per patient, he feels the urge to urinate and feels he needs to push to urinate which causes his leakage around catheter. This does not happen at rest. Patient has been trialed on multiple antispasmodics at this time. At this time, patient's urgency pattern appear to be voluntary pain response rather than true bladder spasms. Per patient still endorsing some small clots in urine. Planning for possible Holep w/ Dr. Monique at [facility]. Discussed w/ patient about need for catheter given chronic retention symptoms and episode of AUR in setting of massive prostate. Patient w/ CYU in bag. Patient agreeable to plan. At this time, Urology will sign off. Will coordinate outpatient follow up. Please page automation tester urology resident with any questions or concerns. Isaak Ramires Urology PGY-1 01/23/2025 4:55 PM Please page Pattern Repair Person Urology Resident with questions Care Management Progress Note Short Medical why still here: New pt. Chronic mendoza. UA positive. CT showed prostatomegaly, and colonic diverticulosis. IV rocephin Q24, last dose today. Wound care consulted. Per urology, they are recommending no surgical intervention, maintain mendoza, out pt follow up. Planned Discharge Disposition: Home or Self Care Pt is from home with spouse. Plan to return home with out pt follow up. No anticipated DC needs. TCC will follow. Barriers/Today we still Wait: Administering IV medications, Clinical stability, Agricultural Extension Officer recommendations (comment) Length of Stay (Days): 0 GMLOS: No GMLOS Documented documented in this encounter [facility] 01-23-2025 Note Care Management Prog ress Note Short Medical why still here: New pt. Chronic mendoza. UA positive. CT showed prostatomegaly, and colonic diverticulosis. IV rocephin Q24, last dose today. Wound care consulted. Per urology, they are recommending no surgical intervention, maintain mendoza, out pt follow up. Planned Discharge Disposition: Home or Self Care Pt is from home with spouse. Plan to return home with out pt follow up. No anticipated DC needs. TCC will follow. Barriers/Today we still Wait: Administering IV medications, Clinical stability, Agricultural Extension Officer recommendations (comment) Length of Stay (Days): 0 GMLOS: No GMLOS Documented [facility] 01-23-2025 Progress note Formatting of t his note might be different from the original. Care Management Progress Note Short Medical why still here: New pt. Chronic mendoza. UA positive. CT showed prostatomegaly, and colonic diverticulosis. IV rocephin Q24, last dose today. Wound care consulted. Per urology, they are recommending no surgical intervention, maintain mendoza, out pt follow up. Planned Discharge Disposition: Home or Self Care Pt is from home with spouse. Plan to return home with out pt follow up. No anticipated DC needs. TCC will follow. Barriers/Today we still Wait: Administering IV medications, Clinical stability, Agricultural Extension Officer recommendations (comment) Length of Stay (Days): 0 GMLOS: No GMLOS Documented [facility] 01-23-2025 Note Hospitalist Progress Note 01/23/2025 Subjective: Admit Date: 01/21/2025 PCP: Abimael Elizabeth, DO Room#: E5-507/E5-507 A Interval History: No acute events reported overnight. Denies chest pain shortness breath abdominal pain nausea vomiting diarrhea lightheadedness dizziness syncope. No fever. Blood pressure stable. On room air. Continues to have suprapubic discomfort and pressure. Pt continues to have the urge to push urine from his catheter Waiting to see urology Pt reports he is not comfortable going home today given discomfort Adult diet Regular 24HR INTAKE/OUTPUT: Intake/Output Summary (Last 24 hours) at 01/23/2025 0924 Last data filed at 01/23/2025 0845 Gross per 24 hour Intake 1000 ml Output 3700 ml Net -2700 ml Past Medical History: Medical History[1] LABS: CBC: Recent Labs 01/21/25 1823 WBC 11.4* RBC 4.43 HGB 13.0 HCT 38.7* MCV 87.4 RDW 12.0 PLT 255 BMP: Recent Labs 01/21/25 1823 NA 139 K 4.1 CL 107 CO2 22* BUN 16 CREATININE 1.32* GLUCOSE 121* CALCIUM 9.5 ANIONGAP 10 LIVER PROFILE:No results for input(s): AST, ALT, BILITOT, ALKPHOS, PROT in the last 72 hours. No lab exists for component: LABALBU PT/INR: No results for input(s): PROTIME, INR in the last 72 hours. CARDIAC ENZYMES: No results for input(s): TROPONINI in the last 72 hours. Procalcitonin: No results found for: PROCAL COVID-19 PCR: No results for input(s): COVID19 in the last 72 hours. Objective: Vitals: BP 140/82 (BP Location: Left arm, Patient Position: Sitting) Pulse 70 Temp (!) 35.6 ?C (96 ?F) (Temporal) Resp 16 Ht 5' 10 (1.778 m) Wt (!) 307 lb (139 kg) SpO2 96% BMI 44.05 kg/m? Pulse Ox: SpO2 Av % Min: 96 % Max: 98 % Supplemental O2: Physical Exam Constitutional: General: He is not in acute distress. HENT: Head: Normocephalic and atraumatic. Cardiovascular: Rate and Rhythm: Normal rate and regular rhythm. Pulmonary: Effort: Pulmonary effort is normal. No respiratory distress. Abdominal: General: Bowel sounds are normal. Palpations: Abdomen is soft. Tenderness: There is no abdominal tenderness. There is no guarding. Genitourinary: Comments: Nonbloody urine noted in the Mendoza catheter Neurological: Mental Status: He is alert and oriented to person, place, and time. Medications: Scheduled PRN Scheduled Meds[2] PRN Meds[3] Continuous Continuous Meds[4] Assessment 64-year-old male scented with Mendoza dysfunction on January 21. January 20 evaluated by urology in office and found to have patent Mendoza catheter. Patient did have bladder spasm likely secondary to chronic retention in the setting of very enlarged prostate. The plan is to follow-up outpatient with urology to discuss suprapubic prostatectomy. In the ER family reported intermittent episodes of suprapubic pain and leaking around Mendoza catheter. Catheter was flushed in the ED which led to bladder spasm and slight resistance on the aspiration. Urology evaluated patient for bladder spasms recommending no acute urological surgical intervention at this time. Continue anticholinergic Vesicare 10 mg daily and Pyridium. Follow-up for BPH management with urology. UA few bacteria dark urine 250 leukocytes. Urine culture was not obtained, patient has already been started on Rocephin empirically. Vesicare 10 mg daily has been substituted for Sanctura 20 mg daily while inpatient. Upon discharge patient to resume Vesicare 10 mg daily as recommended by urology BPH with urinary retention Bladder spasms Hypertension MACY CKD, 5 years ago creatinine was 1.3. January 21 creatinine of 1.32 Continue aspirin Proscar lisinopril Protonix Flomax and Sanctura Extended Emergency Contact Information Primary Emergency Contact: JoselynWHITNEYBessyAnnita Mobile Relation: Spouse Joann PerkinsDO Division of Hospitalist Medicine [employer] [facility] [1] Past Medical History: Diagnosis Date Benign prostatic hyperplasia 3 or 4 years ago Elevated PSA Late 2020 Erectile dysfunction Summer 2020 H/O exercise stress test Hypertension MACY on CPAP Osteomyelitis (HCC) RIGHT RING FINGER AND SCHEDULED FOR THE SURGERY [facility]20 [facility] [2] aspirin, 81 mg, Oral, Daily cefTRIAXone, 1,000 mg, IntraVENous, q24h cholecalciferol, 5,000 Units, Oral, Daily enoxaparin, 40 mg, SubCUTAneous, q24h finasteride, 5 mg, Oral, Daily influenza, 0.5 mL, IntraMUSCular, Once lisinopril, 20 mg, Oral, Daily melatonin, 5 mg, Oral, Nightly montelukast, 10 mg, Oral, Nightly pantoprazole, 40 mg, Oral, qAM AC phenazopyridine, 200 mg, Oral, TID tamsulosin, 0.8 mg, Oral, q24h therapeutic multivitamin-minerals, 1 tablet, Oral, Daily trospium, 20 mg, Oral, BID AC [3] PRN medications: acetaminophen OR acetaminophen, HYDROcodone-acetaminophen, naloxone, naproxen, ondansetron ODT OR ondansetron, poly (more content not included)... [facility] 01-23-2025 History of Presen t illness Narrative Hospitalist Progress Note 01/23/2025 Subjective: Admit Date: 01/21/2025 PCP: Abimael Elizabeth, DO Room#: E5-547/[id number] A Interval History: No acute events reported overnight. Denies chest pain shortness breath abdominal pain nausea vomiting diarrhea lightheadedness dizziness syncope. No fever. Blood pressure stable. On room air. Continues to have suprapubic discomfort and pressure. Pt continues to have the urge to push urine from his catheter Waiting to see urology Pt reports he is not comfortable going home today given discomfort Adult diet Regular 24HR INTAKE/OUTPUT: Intake/Output Summary (Last 24 hours) at 01/23/2025 0924 Last data filed at 01/23/2025 0845 Gross per 24 hour Intake 1000 ml Output 3700 ml Net -2700 ml Past Medical History: Medical History[1] LABS: CBC: Recent Labs 01/21/25 1823 WBC 11.4* RBC 4.43 HGB 13.0 HCT 38.7* MCV 87.4 RDW 12.0 PLT 255 BMP: Recent Labs 01/21/25 1823 NA 139 K 4.1 CL 107 CO2 22* BUN 16 CREATININE 1.32* GLUCOSE 121* CALCIUM 9.5 ANIONGAP 10 LIVER PROFILE:No results for input(s): AST, ALT, BILITOT, ALKPHOS, PROT in the last 72 hours. No lab exists for component: LABALBU PT/INR: No results for input(s): PROTIME, INR in the last 72 hours. CARDIAC ENZYMES: No results for input(s): TROPONINI in the last 72 hours. Procalcitonin: No results found for: PROCAL COVID-19 PCR: No results for input(s): COVID19 in the last 72 hours. Objective: Vitals: BP 140/82 (BP Location: Left arm, Patient Position: Sitting) Pulse 70 Temp (!) 35.6 C (96 F) (Temporal) Resp 16 Ht 5' 10 (1.778 m) Wt (!) 307 lb (139 kg) SpO2 96% BMI 44.05 kg/m Pulse Ox: SpO2 Av % Min: 96 % Max: 98 % Supplemental O2: Physical Exam Constitutional: General: He is not in acute distress. HENT: Head: Normocephalic and atraumatic. Cardiovascular: Rate and Rhythm: Normal rate and regular rhythm. Pulmonary: Effort: Pulmonary effort is normal. No respiratory distress. Abdominal: General: Bowel sounds are normal. Palpations: Abdomen is soft. Tenderness: There is no abdominal tenderness. There is no guarding. Genitourinary: Comments: Nonbloody urine noted in the Mendoza catheter Neurological: Mental Status: He is alert and oriented to person, place, and time. Medications: Scheduled PRN Scheduled Meds[2] PRN Meds[3] Continuous Continuous Meds[4] Assessment 64-year-old male scented with Mendoza dysfunction on January 21. January 20 evaluated by urology in office and found to have patent Mendoza catheter. Patient did have bladder spasm likely secondary to chronic retention in the setting of very enlarged prostate. The plan is to follow-up outpatient with urology to discuss suprapubic prostatectomy. In the ER family reported intermittent episodes of suprapubic pain and leaking around Mendoza catheter. Catheter was flushed in the ED which led to bladder spasm and slight resistance on the aspiration. Urology evaluated patient for bladder spasms recommending no acute urological surgical intervention at this time. Continue anticholinergic Vesicare 10 mg daily and Pyridium. Follow-up for BPH management with urology. UA few bacteria dark urine 250 leukocytes. Urine culture was not obtained, patient has already been started on Rocephin empirically. Vesicare 10 mg daily has been substituted for Sanctura 20 mg daily while inpatient. Upon discharge patient to resume Vesicare 10 mg daily as recommended by urology BPH with urinary retention Bladder spasms Hypertension MACY CKD, 5 years ago creatinine was 1.3. January 21 creatinine of 1.32 Continue aspirin Proscar lisinopril Protonix Flomax and Sanctura Extended Emergency Contact Information Primary Emergency Contact: Annita Toribio (POA) Mobile Relation: Spouse Joann Perkins DO Division of Hospitalist Medicine [facility] [1] Past Medical History: Diagnosis Date Benign prostatic hyperplasia 3 or 4 years ago Elevated PSA Late 2020 Erectile dysfunction Summer 2020 H/O exercise stress test Hypertension MACY on CPAP Osteomyelitis (HCC) RIGHT RING FINGER AND SCHEDULED FOR THE SURGERY ON 03/05/20 AT [facility] [2] aspirin, 81 mg, Oral, Daily cefTRIAXone, 1,000 mg, IntraVENous, q24h cholecalciferol, 5,000 Units, Oral, Daily enoxaparin, 40 mg, SubCUTAneous, q24h finasteride, 5 mg, Oral, Daily influenza, 0.5 mL, IntraMUSCular, Once lisinopril, 20 mg, Oral, Daily melatonin, 5 mg, Oral, Nightly montelukast, 10 mg, Oral, Nightly pantoprazole, 40 mg, Oral, qAM AC phenazopyridine, 200 mg, Oral, TID tamsulosin, 0.8 mg, Oral, q24h therapeutic multivitamin-minerals, 1 tablet, Oral, Daily trospium, 20 mg, Oral, BID AC [3] PRN medications: acetaminophen OR acetaminophen, HYDROcodone-acetaminophen, naloxone, naproxen, ondansetron ODT OR ondansetron, polyethylene glycol (PEG) 3350 [4] Nutrition rescreen completed. Chart reviewed. Patient to be monitored and followed by the diet gyroscopic engineering technician. Cheyenne Nichole DT Hospitalist Progress Note 01/22/2025 Subjective: Admit Date: 01/21/2025 PCP: Abimael Elizabeth, Room#: E5-507/[id number] A Interval History: No acute events reported overnight. Mendoza catheter with nonbloody urine. Patient requiring as needed acetaminophen for pain control. Blood pressure stable. No fever. Renal function within normal limits. Denies chest pain shortness breath abdominal pain nausea vomiting diarrhea lightheadedness dizziness syncope.. Adult diet Regular 24HR INTAKE/OUTPUT: Intake/Output Summary (Last 24 hours) at 01/22/2025 0944 Last data filed at 01/22/2025 0850 Gross per 24 hour Intake 1100 ml Output 1225 ml Net -125 ml Past Medical History: Medical History[1] LABS: CBC: Recent Labs 01/21/25 1823 WBC 11.4* RBC 4.43 HGB 13.0 HCT 38.7* MCV 87.4 RDW 12.0 PLT 255 BMP: Recent Labs 01/21/25 1823 NA 139 K 4.1 CL 107 CO2 22* BUN 16 CREATININE 1.32* GLUCOSE 121* CALCIUM 9.5 ANIONGAP 10 LIVER PROFILE:No results for input(s): AST, ALT, BILITOT, ALKPHOS, PROT in the last 72 hours. No lab exists for component: LABALBU PT/INR: No results for input(s): PROTIME, INR in the last 72 hours. CARDIAC ENZYMES: No results for input(s): TROPONINI in the last 72 hours. Procalcitonin: No results found for: PROCAL COVID-19 PCR: No results for input(s): COVID19 in the last 72 hours. Objective: Vitals: BP 102/65 (BP Location: Left arm, Patient Position: Sitting) Pulse 84 Temp 36.3 C (97.4 F) (Temporal) Resp 17 Ht 5' 10 (1.778 m) Wt (!) 307 lb (139 kg) SpO2 96% BMI 44.05 kg/m Pulse Ox: SpO2 Av.7 % Min: 95 % Max: 100 % Supplemental O2: Physical Exam HENT: Head: Normocephalic and atraumatic. Cardiovascular: Rate and Rhythm: Normal rate and regular rhythm. Pulmonary: Effort: Pulmonary effort is normal. No respiratory distress. Abdominal: General: Bowel sounds are normal. Palpations: Abdomen is soft. Tenderness: There is no abdominal tenderness. Genitourinary: Comments: Mendoza catheter with nonbloody urine Neurological: Mental Status: He is alert and oriented to person, place, and time. Medications: Scheduled PRN Scheduled Meds[2] PRN Meds[3] Continuous Continuous Meds[4] Assessment 64-year-old male scented with Mendoza dysfunction on January 21. January 20 evaluated by urology in office and found to have patent Mendoza catheter. Patient did have bladder spasm likely secondary to chronic retention in the setting of very enlarged prostate. The plan is to follow-up outpatient with urology to discuss suprapubic prostatectomy. In the ER family reported intermittent episodes of suprapubic pain and leaking around Mendoza catheter. Catheter was flushed in the ED which led to bladder spasm and slight resistance on the aspiration. Urology evaluated patient for bladder spasms recommending no acute urological surgical intervention at this time. Continue anticholinergic Vesicare 10 mg daily and Pyridium. Follow-up for BPH management with urology. UA few bacteria dark urine 250 leukocytes. Urine culture was not obtained, patient has already been started on Rocephin empirically. Vesicare 10 mg daily has been substituted for Sanctura 20 mg daily while inpatient. Upon discharge patient to resume Vesicare 10 mg daily as recommended by urology BPH with urinary retention Bladder spasms Hypertension MACY CKD, 5 years ago creatinine was 1.3. January 21 creatinine of 1.32 Continue aspirin Proscar lisinopril Protonix Flomax and Sanctura Extended Emergency Contact Information Primary Emergency Contact: Annita Toribio (POA) Mobile Relation: Spouse Joann PerkinsDO Division of Hospitalist Medicine [employer] [facility] [1] Past Medical History: Diagnosis Date Benign prostatic hyperplasia 3 or 4 years ago Elevated PSA Late 2020 Erectile dysfunction Summer 2020 H/O exercise stress test Hypertension MACY on CPAP Osteomyelitis (HCC) RIGHT RING FINGER AND SCHEDULED FOR THE SURGERY ON 03/05/[address] [facility] [2] aspirin, 81 mg, Oral, Daily cefTRIAXone, 1,000 mg, IntraVENous, q24h cefTRIAXone, 1,000 mg, IntraVENous, q24h cholecalciferol, 5,000 Units, Oral, Daily enoxaparin, 40 mg, SubCUTAneous, q24h finasteride, 5 mg, Oral, Daily influenza, 0.5 mL, IntraMUSCular, Once lisinopril, 20 mg, Oral, Daily melatonin, 5 mg, Oral, Nightly pantoprazole, 40 mg, Oral, qAM AC tamsulosin, 0.8 mg, Oral, q24h therapeutic multivitamin-minerals, 1 tablet, Oral, Daily trospium, 20 mg, Oral, BID AC [3] PRN medications: acetaminophen OR acetaminophen, HYDROcodone-acetaminophen, naproxen, ondansetron ODT OR ondansetron, polyethylene glycol (PEG) 3350 [4] documented in this encounter [facility] 01-23-2025 Telephone encounter Note Pt is currently admitted. Pt was referred to Dr. Monique by Dr. Moseley to discuss surgery. Sent pt My Chart message with this information. [facility] 01-23-2025 Miscellaneous Notes Pt is currently admitted. Pt was referred to Dr. Monique by Dr. Moseley to discuss surgery. Sent pt My Chart message with this information. Patient was gave message verbatim per Dr. Moseley. Pt phone was very statically but he was able to hear me I just couldn't hear him. Name of Caller: Stephane Contact Reason for Appointment: Pt called to request an appointment with Dr Moseley for surgery. Please provide information for pt to schedule with Dr Moseley. Office Name: Urology documented in this encounter [facility] 01-23-[address] Moseley placed a referral to Dr. Monique with [facility]. Pt is currently admitted, sent My Chart with message about referral. [facility] 01-23-2025 Telephone encounter Note Patient was gave message verbatim per Dr. Moseley. Pt phone was very statically but he was able to hear me I just couldn't hear him. [facility] 01-22-2025 Note Hospitalist Progress Note 01/22/2025 Subjective: Admit Date: 01/21/2025 PCP: Abimael Elizabeth, Room#: E5-507/[id number] A Interval History: No acute events reported overnight. Mendoza catheter with nonbloody urine. Patient requiring as needed acetaminophen for pain control. Blood pressure stable. No fever. Renal function within normal limits. Denies chest pain shortness breath abdominal pain nausea vomiting diarrhea lightheadedness dizziness syncope.. Adult diet Regular 24HR INTAKE/OUTPUT: Intake/Output Summary (Last 24 hours) at 01/22/2025 0944 Last data filed at 01/22/2025 0850 Gross per 24 hour Intake 1100 ml Output 1225 ml Net -125 ml Past Medical History: Medical History[1] LABS: CBC: Recent Labs 01/21/25 1823 WBC 11.4* RBC 4.43 HGB 13.0 HCT 38.7* MCV 87.4 RDW 12.0 PLT 255 BMP: Recent Labs 01/21/25 1823 NA 139 K 4.1 CL 107 CO2 22* BUN 16 CREATININE 1.32* GLUCOSE 121* CALCIUM 9.5 ANIONGAP 10 LIVER PROFILE:No results for input(s): AST, ALT, BILITOT, ALKPHOS, PROT in the last 72 hours. No lab exists for component: LABALBU PT/INR: No results for input(s): PROTIME, INR in the last 72 hours. CARDIAC ENZYMES: No results for input(s): TROPONINI in the last 72 hours. Procalcitonin: No results found for: PROCAL COVID-19 PCR: No results for input(s): COVID19 in the last 72 hours. Objective: Vitals: BP 102/65 (BP Location: Left arm, Patient Position: Sitting) Pulse 84 Temp 36.3 ?C (97.4 ?F) (Temporal) Resp 17 Ht 5' 10 (1.778 m) Wt (!) 307 lb (139 kg) SpO2 96% BMI 44.05 kg/m? Pulse Ox: SpO2 Av.7 % Min: 95 % Max: 100 % Supplemental O2: Physical Exam HENT: Head: Normocephalic and atraumatic. Cardiovascular: Rate and Rhythm: Normal rate and regular rhythm. Pulmonary: Effort: Pulmonary effort is normal. No respiratory distress. Abdominal: General: Bowel sounds are normal. Palpations: Abdomen is soft. Tenderness: There is no abdominal tenderness. Genitourinary: Comments: Mendoza catheter with nonbloody urine Neurological: Mental Status: He is alert and oriented to person, place, and time. Medications: Scheduled PRN Scheduled Meds[2] PRN Meds[3] Continuous Continuous Meds[4] Assessment 64-year-old male scented with Mendoza dysfunction on January 21. January 20 evaluated by urology in office and found to have patent Mendoza catheter. Patient did have bladder spasm likely secondary to chronic retention in the setting of very enlarged prostate. The plan is to follow-up outpatient with urology to discuss suprapubic prostatectomy. In the ER family reported intermittent episodes of suprapubic pain and leaking around Mendoza catheter. Catheter was flushed in the ED which led to bladder spasm and slight resistance on the aspiration. Urology evaluated patient for bladder spasms recommending no acute urological surgical intervention at this time. Continue anticholinergic Vesicare 10 mg daily and Pyridium. Follow-up for BPH management with urology. UA few bacteria dark urine 250 leukocytes. Urine culture was not obtained, patient has already been started on Rocephin empirically. Vesicare 10 mg daily has been substituted for Sanctura 20 mg daily while inpatient. Upon discharge patient to resume Vesicare 10 mg daily as recommended by urology BPH with urinary retention Bladder spasms Hypertension MACY CKD, 5 years ago creatinine was 1.3. January 21 creatinine of 1.32 Continue aspirin Proscar lisinopril Protonix Flomax and Sanctura Extended Emergency Contact Information Primary Emergency Contact: Annita Toribio (POA) Mobile Relation: Spouse Joann Perkins DO Division of Hospitalist Medicine [facility] [1] Past Medical History: Diagnosis Date Benign prostatic hyperplasia 3 or 4 years ago Elevated PSA Late 2020 Erectile dysfunction Summer 2020 H/O exercise stress test Hypertension MACY on CPAP Osteomyelitis (HCC) RIGHT RING FINGER AND SCHEDULED FOR THE SURGERY ON 03/05/[address] [facility] [2] aspirin, 81 mg, Oral, Daily cefTRIAXone, 1,000 mg, IntraVENous, q24h cefTRIAXone, 1,000 mg, IntraVENous, q24h cholecalciferol, 5,000 Units, Oral, Daily enoxaparin, 40 mg, SubCUTAneous, q24h finasteride, 5 mg, Oral, Daily influenza, 0.5 mL, IntraMUSCular, Once lisinopril, 20 mg, Oral, Daily melatonin, 5 mg, Oral, Nightly pantoprazole, 40 mg, Oral, qAM AC tamsulosin, 0.8 mg, Oral, q24h therapeutic multivitamin-minerals, 1 tablet, Oral, Daily trospium, 20 mg, Oral, BID AC [3] PRN medications: acetaminophen OR acetaminophen, HYDROcodone-acetaminophen, naproxen, ondansetron ODT OR ondansetron, polyethylene glycol (PEG) 3350 [4] [facility] 01-22-[address] Kayden Tillman [facility] 01-22-2025 Telephone encounter Note Referral to Dr Kayden Tillman [facility] 01-22-2025 Miscellaneous Notes Referral to Dr Kayden Tillman documented in this encounter [facility] 01-21-2025 History and physical note Attending History and Physical Admit Date: 01/21/2025 PCP: Abimael Elizabeth DO CHIEF COMPLAINT: Inability to urinate Reason for Admission: BPH with urinary retention History Obtained From: patient HISTORY OF PRESENT ILLNESS: Stephane is a 64 y.o. male with past medical history below who presents with chief complaint listed above. This is a 64-year-old gentleman with a history of BPH and bladder spasm was recently seen by urology in the setting of a very large prostate. He was scheduled for robotic suprapubic prostatectomy. But given the fact the patient has urinary retention, he can Mendoza catheter was placed and he currently is being admitted for further evaluation with urology consultation. Will admit for further evaluation and management. Past Medical History: Medical History[1] Past Surgical History: Surgical History[2] Social History: Social History Socioeconomic History Marital status: Spouse name: Not on file Number of children: Not on file Years of education: Not on file Highest education level: Not on file Occupational History Not on file Tobacco Use Smoking status: Former Current packs/day: 0.00 Types: Cigarettes Quit date: 04/13/1980 Years since quittin.8 Smokeless tobacco: Never Vaping Use Vaping status: Never Used Substance and Sexual Activity Alcohol use: Yes Alcohol/week: 7.0 standard drinks of alcohol Types: 5 Cans of beer per week Drug use: Never Sexual activity: Yes Partners: Female control/protection: Other Comment: Histarectomy Other Topics Concern Not on file Social History Narrative Not on file Social Drivers of Health Financial Resource Strain: Not on file Food Insecurity: Not on file Transportation Needs: Not on file Physical Activity: Not on file Stress: Not on file Social Connections: Not on file Intimate Partner Violence: Not on file Housing Stability: Not on file Family History: Family History[3] Medications Prior to Admission: Current Medications[4] Medications Reconciliation: Medication were reviewed and verified as accurate with patient. Allergies: Allergies[5] REVIEW OF SYSTEMS: 10 point ROS obtained, as per HPI, otherwise NEG Vitals: BP (!) 166/73 Pulse 79 Temp 37.1 C (98.8 F) (Temporal) Resp 18 Ht 5' 10 (1.778 m) Wt (!) 307 lb (139 kg) SpO2 97% BMI 44.05 kg/m BMI Classification: Morbidly Obese (>40.0) Pulse Ox: SpO2 Av.3 % Min: 97 % Max: 100 % Supplemental O2: PHYSICAL EXAM: Physical Exam General appearance is that of an obese middle-aged gentleman in no acute distress alert at the time of examination. The head was normal axillary sinuses and periorbital sinuses appear to be clear pharynx was nonerythematous Neck was supple there is no JVD HJR or lymphadenopathy Lungs were clear bilaterally with diminished breath sounds at both bases. Heart rhythm regular and rapid S1/S2 heart sounds were distant there were no extrasystoles. Abdomen soft protuberant benign and nontender with normal bowel sounds in all quadrants there is no subxiphoid, right midepigastric, or right upper quadrant tenderness to palpation lower abdominal examination was otherwise unremarkable. Range of motion of both upper lower extremities appeared to be symmetrical there was no evidence of peripheral edema skin is otherwise warm and dry to touch. Peripheral pulses were intact in both lower extremities. Sodium 139 potassium 4.1 chloride 107 carbon dioxide 22 BUN 16 creatinine 1.32 glucose 121 calcium 9.5 magnesium 1.9 troponin: 4, and 4 respectively. WBC 11.4 hemoglobin 13.0 hematocrit 38.7 red cell indices were normal platelets 255 white cell differential normal Urinalysis revealed a specific gravity 1.023 with a pH of 7.[address] abdomen and pelvis: Prostatomegaly, which protrudes (measuring 6.5 x 7.0 x 8.3 cm with impression upon the posterior aspect of the bladder.). Into the posterior bladder wall. Colonic diverticulosis. Chest x-ray: No acute abnormality. DATA: CBC: Recent Labs 01/21/25 1823 WBC 11.4* RBC 4.43 HGB 13.0 HCT 38.7* MCV 87.4 RDW 12.0 PLT 255 BMP: Recent Labs 01/21/25 1823 NA 139 K 4.1 CL 107 CO2 22* BUN 16 CREATININE 1.32* GLUCOSE 121* CALCIUM 9.5 ANIONGAP 10 LIVER PROFILE:No results for input(s): AST, ALT, BILITOT, ALKPHOS, PROT in the last 72 hours. No lab exists for component: LABALBU PT/INR: No results for input(s): PROTIME, INR in the last 72 hours. CARDIAC ENZYMES: No results for input(s): TROPONINI in the last 72 hours. Procalcitonin: No results found for: PROCAL Urine Culture: No results found for this or any previous visit. COVID-19 PCR: No results for input(s): COVID19 in the last 72 hours. I reviewed: [x] laboratory results [x] radiographic results At the time of today's encounter. Pt was advised of the results. Data: (CAT1) Reviewed 3 or more notes from different specialty or health system (each=1). (LOW: 2x CAT1 or independent historian MOD: 3x CAT1 or 1x CAT3 EXTENSIVE: 3x CAT1 and 1x CAT3) Assessment Discussed management with the ED provider and agree with hospitalization. Acute, acute on chronic, unstable/uncontrolled chronic problems/diagnoses: Prostatomegaly with inability to void and urine retention. An indwelling Mendoza catheter has been placed. Urology consultation pending. Morbid exogenous obesity. Stable chronic problems affecting care, new non-acute diagnoses: GERD currently on Nexium 40 mg daily Plan As a result of the above findings & factors, the following mgmt was pursued: - As above - am labs, replace lytes prn - PT/OT/CM/SW - delirium precautions: increase activity - DVT prophylaxis: enoxaparin and encourage ambulation Complexity: Acute illness or injury posing a threat to life or body function (HIGH). Risk: Use/consideration of a high risk treatment or study: IV controlled substances (HIGH). Advance Directive: Prior Anticipated Discharge - Date -01/22/2025 - Location - Home - Pending the following -results of treatment Total time spent (which include face to face and non face to face encounters) : Set pending minutes. Extended Emergency Contact Information Primary Emergency Contact: Annita Toribio (POA) Mobile Relation: Spouse [employer] Stephane Toribio : 1960 Primary Care Physician: Abimael Elizabeth DO The patient and/or family/surrogate voluntarily agreed to participate in ACP services. Patient s cognitive capacity: Alert and oriented x 4 Code Status: [_X] [FULL CODE - Continue all advanced life support: CPR,intubation,invasive procedures] [_] [DNR-CCA - DO NOT do CPR, intubation] [_] [DNR-MATHS TUTOR - Comfort care only] [_] DNR form [was/was not] signed Summary of discussion: The patient health care POA/ surrogate is the following: Nyla Ariza. [Condition that instigated the ACP on this DOS, relevant PMH, functional status, goals of care, and whom this was discussed with including names and relationship to the patient, and any relevant advance care documentation discussion] I answered all the patient/family questions that I could within the range and scope of the current medical situation. We discussed the medical conditions, risks, benefits, outcomes, and goals of care at this time for the patient's medical issues at hand in the face of the patient's chronic issues and current presentation. Total time spent: 15 minutes were spent discussing the patient's resuscitation status, advance care planning, and end of life care, with patient and/or family/surrogate. Chuck Rodríguez MD Division of Hospitalist Medicine [facility] [1] Past Medical History: Diagnosis Date Benign prostatic hyperplasia 3 or 4 years ago Elevated PSA Late 2020 Erectile dysfunction Summer 2020 H/O exercise stress test Hypertension MACY on CPAP Osteomyelitis (HCC) RIGHT RING FINGER AND SCHEDULED FOR THE SURGERY ON 03/05/[address] [facility] [2] Past Surgical History: Procedure Laterality Date CHOLECYSTECTOMY [facility] COLONOSCOPY COLONOSCOPY FINGER AMPUTATION Right 03/05/2020 right small finger -dr jackson FINGER SURGERY Left [facility] FINGER SURGERY Left 02/20/2023 Mucous cyst excision long finger with with simple primary closure. arthrotomy DIP joint long finger with excision of osteophytes. Dr Jackson OTHER SURGICAL HISTORY EXCISION OF LIPOMA FROM THE BACK AT [facility] LONG TIME AGO SCAPHOID FRACTURE SURGERY Right [facility] WISDOM TOOTH EXTRACTION [3] Family History Problem Relation Name Age of Onset Arthritis Mother Rachel Toribio Arthritis Father Franki Toribio Hearing loss Father Franki Toribio [4] Current Facility-Administered Medications: cefTRIAXone (Rocephin) 1,000 mg in sodium chloride 0.9 % 50 mL IVPB Mini-Bag Plus, 1,000 mg, IntraVENous, q24h, Dionte Dozier MD, Last Rate: 100 mL/hr at 01/21/252127, 1,000 mg at 01/21/252127 Current Outpatient Medications: acetaminophen (Tylenol) 325 MG tablet, Take 650 mg by mouth., Disp: , Rfl: aspirin 81 MG EC tablet, Take 81 mg by mouth in the morning., Disp: , Rfl: cholecalciferol (Vitamin D-3) 50 MCG (2000 UT) capsule, Take 5,000 Units by mouth., Disp: , Rfl: esomeprazole (NexIUM) [address] capsule, Take 40 mg by mouth., Disp: , Rfl: finasteride (Proscar) 5 MG tablet, Take 1 tablet (5 mg) by mouth daily., Disp: 90 tablet, Rfl: 3 lisinopril 20 MG tablet, Take 20 mg by mouth., Disp: , Rfl: loratadine (Claritin) 10 MG tablet, Take 10 mg by mouth daily., Disp: , Rfl: melatonin 5 MG tablet, Take 5 mg by mouth., Disp: , Rfl: Misc Natural Products (Prostate Health) capsule, Take by mouth., Disp: , Rfl: montelukast (Singulair) 10 MG tablet, Take 10 mg by mouth Nightly., Disp: , Rfl: Multiple Vitamin (Multi-Vitamin) tablet, Take 1 tablet by mouth in the morning., Disp: , Rfl: naproxen (Naprosyn) 500 MG tablet, Take 500 mg by mouth every 12 hours as needed. With food or milk, Disp: , Rfl: omega-3 (Fish Oil) 1200 MG capsule, Take 1,200 mg by mouth., Disp: , Rfl: omega-3 acid ethyl esters (Lovaza) 1 g capsule, 2 tablets Every 24 hours., Disp: , Rfl: solifenacin (VESIcare) 10 MG tablet, Take 1 tablet (10 mg) by mouth daily. Swallow tablet whole; do not crush, chew, or split., Disp: 30 tablet, Rfl: 1 solifenacin (VESIcare) 5 MG tablet, Take 1 tablet (5 mg) by mouth daily. Swallow tablet whole; do not crush, chew, or split., Disp: 30 tablet, Rfl: 5 tamsulosin (Flomax) 0.4 MG 24 hr capsule, 2 capsules Every 24 hours., Disp: , Rfl: tamsulosin (Flomax) 0.4 MG 24 hr capsule, Take 1 capsule (0.4 mg) by mouth 2 times daily. Take 30 minutes after a meal., Disp: 180 capsule, Rfl: 3 [5] Allergies Allergen Reactions Dust Mite Extract Unknown Molds & Smuts T [facility] 01-21-2025 Note Attending History an d Physical Admit Date: 01/21/2025 PCP: Abimael Elizabeth DO CHIEF COMPLAINT: Inability to urinate Reason for Admission: BPH with urinary retention History Obtained From: patient HISTORY OF PRESENT ILLNESS: Stephane is a 64 y.o. male with past medical history below who presents with chief complaint listed above. This is a 64-year-old gentleman with a history of BPH and bladder spasm was recently seen by urology in the setting of a very large prostate. He was scheduled for robotic suprapubic prostatectomy. But given the fact the patient has urinary retention, he can Mendoza catheter was placed and he currently is being admitted for further evaluation with urology consultation. Will admit for further evaluation and management. Past Medical History: Medical History[1] Past Surgical History: Surgical History[2] Social History: Social History Socioeconomic History Marital status: Spouse name: Not on file Number of children: Not on file Years of education: Not on file Highest education level: Not on file Occupational History Not on file Tobacco Use Smoking status: Former Current packs/day: 0.00 Types: Cigarettes Quit date: 04/13/1980 Years since quittin.8 Smokeless tobacco: Never Vaping Use Vaping status: Never Used Substance and Sexual Activity Alcohol use: Yes Alcohol/week: 7.0 standard drinks of alcohol Types: 5 Cans of beer per week Drug use: Never Sexual activity: Yes Partners: Female control/protection: Other Comment: Histarectomy Other Topics Concern Not on file Social History Narrative Not on file Social Drivers of Health Financial Resource Strain: Not on file Food Insecurity: Not on file Transportation Needs: Not on file Physical Activity: Not on file Stress: Not on file Social Connections: Not on file Intimate Partner Violence: Not on file Housing Stability: Not on file Family History: Family History[3] Medications Prior to Admission: Current Medications[4] Medications Reconciliation: Medication were reviewed and verified as accurate with patient. Allergies: Allergies[5] REVIEW OF SYSTEMS: 10 point ROS obtained, as per HPI, otherwise NEG Vitals: BP (!) 166/73 Pulse 79 Temp 37.1 ?C (98.8 ?F) (Temporal) Resp 18 Ht 5' 10 (1.778 m) Wt (!) 307 lb (139 kg) SpO2 97% BMI 44.05 kg/m? BMI Classification: Morbidly Obese (>40.0) Pulse Ox: SpO2 Av.3 % Min: 97 % Max: 100 % Supplemental O2: PHYSICAL EXAM: Physical Exam General appearance is that of an obese middle-aged gentleman in no acute distress alert at the time of examination. The head was normal axillary sinuses and periorbital sinuses appear to be clear pharynx was nonerythematous Neck was supple there is no JVD HJR or lymphadenopathy Lungs were clear bilaterally with diminished breath sounds at both bases. Heart rhythm regular and rapid S1/S2 heart sounds were distant there were no extrasystoles. Abdomen soft protuberant benign and nontender with normal bowel sounds in all quadrants there is no subxiphoid, right midepigastric, or right upper quadrant tenderness to palpation lower abdominal examination was otherwise unremarkable. Range of motion of both upper lower extremities appeared to be symmetrical there was no evidence of peripheral edema skin is otherwise warm and dry to touch. Peripheral pulses were intact in both lower extremities. Sodium 139 potassium 4.1 chloride 107 carbon dioxide 22 BUN 16 creatinine 1.32 glucose 121 calcium 9.5 magnesium 1.9 troponin: 4, and 4 respectively. WBC 11.4 hemoglobin 13.0 hematocrit 38.7 red cell indices were normal platelets 255 white cell differential normal Urinalysis revealed a specific gravity 1.023 with a pH of 7.[address] abdomen and pelvis: Prostatomegaly, which protrudes (measuring 6.5 x 7.0 x 8.3 cm with impression upon the posterior aspect of the bladder.). Into the posterior bladder wall. Colonic diverticulosis. Chest x-ray: No acute abnormality. DATA: CBC: Recent Labs 01/21/25 1823 WBC 11.4* RBC 4.43 HGB 13.0 HCT 38.7* MCV 87.4 RDW 12.0 PLT 255 BMP: Recent Labs 01/21/25 1823 NA 139 K 4.1 CL 107 CO2 22* BUN 16 CREATININE 1.32* GLUCOSE 121* CALCIUM 9.5 ANIONGAP 10 LIVER PROFILE:No results for input(s): AST, ALT, BILITOT, ALKPHOS, PROT in the last 72 hours. No lab exists for component: LABALBU PT/INR: No results for input(s): PROTIME, INR in the last 72 hours. CARDIAC ENZYMES: No results for input(s): TROPONINI in the last 72 hours. Procalcitonin: No results found for: PROCAL Urine Culture: No results found for this or any previous visit. COVID-19 PCR: No results for input(s): COVID19 in the last 72 hours. I reviewed: [x] laboratory results [x] radiographic results At the time of today's encounter. Pt was advised of the results. Data: (CAT1) Rev (more content not included)... [facility] 01-21-2025 History and physical note Attending History and Physical Admit Date: 01/21/2025 PCP: Abimael Elizabeth DO CHIEF COMPLAINT: Inability to urinate Reason for Admission: BPH with urinary retention History Obtained From: patient HISTORY OF PRESENT ILLNESS: Stephane is a 64 y.o. male with past medical history below who presents with chief complaint listed above. This is a 64-year-old gentleman with a history of BPH and bladder spasm was recently seen by urology in the setting of a very large prostate. He was scheduled for robotic suprapubic prostatectomy. But given the fact the patient has urinary retention, he can Mendoza catheter was placed and he currently is being admitted for further evaluation with urology consultation. Will admit for further evaluation and management. Past Medical History: Medical History[1] Past Surgical History: Surgical History[2] Social History: Social History Socioeconomic History Marital status: Spouse name: Not on file Number of children: Not on file Years of education: Not on file Highest education level: Not on file Occupational History Not on file Tobacco Use Smoking status: Former Current packs/day: 0.00 Types: Cigarettes Quit date: 04/13/1980 Years since quittin.8 Smokeless tobacco: Never Vaping Use Vaping status: Never Used Substance and Sexual Activity Alcohol use: Yes Alcohol/week: 7.0 standard drinks of alcohol Types: 5 Cans of beer per week Drug use: Never Sexual activity: Yes Partners: Female control/protection: Other Comment: Histarectomy Other Topics Concern Not on file Social History Narrative Not on file Social Drivers of Health Financial Resource Strain: Not on file Food Insecurity: Not on file Transportation Needs: Not on file Physical Activity: Not on file Stress: Not on file Social Connections: Not on file Intimate Partner Violence: Not on file Housing Stability: Not on file Family History: Family History[3] Medications Prior to Admission: Current Medications[4] Medications Reconciliation: Medication were reviewed and verified as accurate with patient. Allergies: Allergies[5] REVIEW OF SYSTEMS: 10 point ROS obtained, as per HPI, otherwise NEG Vitals: BP (!) 166/73 Pulse 79 Temp 37.1 C (98.8 F) (Temporal) Resp 18 Ht 5' 10 (1.778 m) Wt (!) 307 lb (139 kg) SpO2 97% BMI 44.05 kg/m BMI Classification: Morbidly Obese (>40.0) Pulse Ox: SpO2 Av.3 % Min: 97 % Max: 100 % Supplemental O2: PHYSICAL EXAM: Physical Exam General appearance is that of an obese middle-aged gentleman in no acute distress alert at the time of examination. The head was normal axillary sinuses and periorbital sinuses appear to be clear pharynx was nonerythematous Neck was supple there is no JVD HJR or lymphadenopathy Lungs were clear bilaterally with diminished breath sounds at both bases. Heart rhythm regular and rapid S1/S2 heart sounds were distant there were no extrasystoles. Abdomen soft protuberant benign and nontender with normal bowel sounds in all quadrants there is no subxiphoid, right midepigastric, or right upper quadrant tenderness to palpation lower abdominal examination was otherwise unremarkable. Range of motion of both upper lower extremities appeared to be symmetrical there was no evidence of peripheral edema skin is otherwise warm and dry to touch. Peripheral pulses were intact in both lower extremities. Sodium 139 potassium 4.1 chloride 107 carbon dioxide 22 BUN 16 creatinine 1.32 glucose 121 calcium 9.5 magnesium 1.9 troponin: 4, and 4 respectively. WBC 11.4 hemoglobin 13.0 hematocrit 38.7 red cell indices were normal platelets 255 white cell differential normal Urinalysis revealed a specific gravity 1.023 with a pH of 7.[address] abdomen and pelvis: Prostatomegaly, which protrudes (measuring 6.5 x 7.0 x 8.3 cm with impression upon the posterior aspect of the bladder.). Into the posterior bladder wall. Colonic diverticulosis. Chest x-ray: No acute abnormality. DATA: CBC: Recent Labs 10/11/25 1823 WBC 11.4* RBC 4.43 HGB 13.0 HCT 38.7* MCV 87.4 RDW 12.0 PLT 255 BMP: Recent Labs 01/21/25 1823 NA 139 K 4.1 CL 107 CO2 22* BUN 16 CREATININE 1.32* GLUCOSE 121* CALCIUM 9.5 ANIONGAP 10 LIVER PROFILE:No results for input(s): AST, ALT, BILITOT, ALKPHOS, PROT in the last 72 hours. No lab exists for component: LABALBU PT/INR: No results for input(s): PROTIME, INR in the last 72 hours. CARDIAC ENZYMES: No results for input(s): TROPONINI in the last 72 hours. Procalcitonin: No results found for: PROCAL Urine Culture: No results found for this or any previous visit. COVID-19 PCR: No results for input(s): COVID19 in the last 72 hours. I reviewed: [x] laboratory results [x] radiographic results At the time of today's encounter. Pt was advised of the results. Data: (CAT1) Reviewed 3 or more notes from different specialty or health system (each=1). (LOW: 2x CAT1 or independent historian MOD: 3x CAT1 or 1x CAT3 EXTENSIVE: 3x CAT1 and 1x CAT3) Assessment Discussed management with the ED provider and agree with hospitalization. Acute, acute on chronic, unstable/uncontrolled chronic problems/diagnoses: Prostatomegaly with inability to void and urine retention. An indwelling Mendoza catheter has been placed. Urology consultation pending. Morbid exogenous obesity. Stable chronic problems affecting care, new non-acute diagnoses: GERD currently on Nexium 40 mg daily Plan As a result of the above findings & factors, the following mgmt was pursued: - As above - am labs, replace lytes prn - PT/OT/CM/SW - delirium precautions: increase activity - DVT prophylaxis: enoxaparin and encourage ambulation Complexity: Acute illness or injury posing a threat to life or body function (HIGH). Risk: Use/consideration of a high risk treatment or study: IV controlled substances (HIGH). Advance Directive: Prior Anticipated Discharge - Date -01/22/2025 - Location - Home - Pending the following -results of treatment Total time spent (which include face to face and non face to face encounters) : Set pending minutes. Extended Emergency Contact Information Primary Emergency Contact: Annita Toribio (POA) Mobile Relation: Spouse [employer] Stephane Toribio : 1960 Primary Care Physician: Abimael Elizabeth DO The patient and/or family/surrogate voluntarily agreed to participate in ACP services. Patient s cognitive capacity: Alert and oriented x 4 Code Status: [_X] [FULL CODE - Continue all advanced life support: CPR,intubation,invasive procedures] [_] [DNR-CCA - DO NOT do CPR, intubation] [_] [DNR-MATHS TUTOR - Comfort care only] [_] DNR form [was/was not] signed Summary of discussion: The patient health care POA/ surrogate is the following: Nyla Ariza. [Condition that instigated the ACP on this DOS, relevant PMH, functional status, goals of care, and whom this was discussed with including names and relationship to the patient, and any relevant advance care documentation discussion] I answered all the patient/family questions that I could within the range and scope of the current medical situation. We discussed the medical conditions, risks, benefits, outcomes, and goals of care at this time for the patient's medical issues at hand in the face of the patient's chronic issues and current presentation. Total time spent: 15 minutes were spent discussing the patient's resuscitation status, advance care planning, and end of life care, with patient and/or family/surrogate. Chuck Rodríguez MD Division of Hospitalist Medicine [facility] [1] Past Medical History: Diagnosis Date Benign prostatic hyperplasia 3 or 4 years ago Elevated PSA Late 2020 Erectile dysfunction Summer 2020 H/O exercise stress test Hypertension MACY on CPAP Osteomyelitis (HCC) RIGHT RING FINGER AND SCHEDULED FOR THE SURGERY ON 03/05/[address] [facility] [2] Past Surgical History: Procedure Laterality Date CHOLECYSTECTOMY [facility] COLONOSCOPY COLONOSCOPY FINGER AMPUTATION Right 03/05/2020 right small finger -dr jackson FINGER SURGERY Left [facility] FINGER SURGERY Left 02/20/2023 Mucous cyst excision long finger with with simple primary closure. arthrotomy DIP joint long finger with excision of osteophytes. Dr Jackson OTHER SURGICAL HISTORY EXCISION OF LIPOMA FROM THE BACK AT [facility] LONG TIME AGO SCAPHOID FRACTURE SURGERY Right [facility] WISDOM TOOTH EXTRACTION [3] Family History Problem Relation Name Age of Onset Arthritis Mother Rachel Toribio Arthritis Father Franki Toribio Hearing loss Father Franki Toribio [4] Current Facility-Administered Medications: cefTRIAXone (Rocephin) 1,000 mg in sodium chloride 0.9 % 50 mL IVPB Mini-Bag Plus, 1,000 mg, IntraVENous, q24h, Dionte Dozier MD, Last Rate: 100 mL/hr at 01/21/252127, 1,000 mg at 01/21/252127 Current Outpatient Medications: acetaminophen (Tylenol) 325 MG tablet, Take 650 mg by mouth., Disp: , Rfl: aspirin 81 MG EC tablet, Take 81 mg by mouth in the morning., Disp: , Rfl: cholecalciferol (Vitamin D-3) 50 MCG (1999 UT) capsule, Take 5,000 Units by mouth., Disp: , Rfl: esomeprazole (NexIUM) [address] capsule, Take 40 mg by mouth., Disp: , Rfl: finasteride (Proscar) 5 MG tablet, Take 1 tablet (5 mg) by mouth daily., Disp: 90 tablet, Rfl: 3 lisinopril 20 MG tablet, Take 20 mg by mouth., Disp: , Rfl: loratadine (Claritin) 10 MG tablet, Take 10 mg by mouth daily., Disp: , Rfl: melatonin 5 MG tablet, Take 5 mg by mouth., Disp: , Rfl: Misc Natural Products (Prostate Health) capsule, Take by mouth., Disp: , Rfl: montelukast (Singulair) 10 MG tablet, Take 10 mg by mouth Nightly., Disp: , Rfl: Multiple Vitamin (Multi-Vitamin) tablet, Take 1 tablet by mouth in the morning., Disp: , Rfl: naproxen (Naprosyn) 500 MG tablet, Take 500 mg by mouth every 12 hours as needed. With food or milk, Disp: , Rfl: omega-3 (Fish Oil) 1200 MG capsule, Take 1,200 mg by mouth., Disp: , Rfl: omega-3 acid ethyl esters (Lovaza) 1 g capsule, 2 tablets Every 24 hours., Disp: , Rfl: solifenacin (VESIcare) 10 MG tablet, Take 1 tablet (10 mg) by mouth daily. Swallow tablet whole; do not crush, chew, or split., Disp: 30 tablet, Rfl: 1 solifenacin (VESIcare) 5 MG tablet, Take 1 tablet (5 mg) by mouth daily. Swallow tablet whole; do not crush, chew, or split., Disp: 30 tablet, Rfl: 5 tamsulosin (Flomax) 0.4 MG 24 hr capsule, 2 capsules Every 24 hours., Disp: , Rfl: tamsulosin (Flomax) 0.4 MG 24 hr capsule, Take 1 capsule (0.4 mg) by mouth 2 times daily. Take 30 minutes after a meal., Disp: 180 capsule, Rfl: 3 [5] Allergies Allergen Reactions Dust Mite Extract Unknown Molds & Smuts documented in this encounter [facility] 01-21-2025 Consult note Formatting of th is note is different from the original. Urology Consult 01/21/2025 HISTORY OF PRESENT ILLNESS: The patient is a 64 y.o. male, known to our service, with past medical history as listed below and significant for BPH w/ urinary retention managed with a chronic mendoza who is here for concerns of mendoza dysfunction. Patient was seen in the office yesterday for similar complaints. At that time, mendoza was evaluated by Dr. Maradiaga who found catheter to be patent. He did have significant bladder spasms for which Dr. Maradiaga explained this is likely secondary to chronic retention in the setting of a very enlarged prostate. He is suppose to have follow up outpatient with one of the robotic urologists for discussions of a Suprapubic prostatectomy. According to the patient and family at bedside, patient has had intermittent episodes of suprapubic accompanied with leaking around mendoza. Additionally, reports passing some clots through his mendoza. Ultimately, he presents to the ED for urology evaluation. The mendoza catheter was flushed by the ED staff for patency but did trigger a bladder spasm and had slight resistance on the aspiration. Pt evaluated at bedside, he is AF and HDS. Mendoza draining yellow urine. ED/Hospital workup Cr 1.3 (@ BL); WBC 11.4; HGB 13; CTX; CT - prostamegaly, decompressed bladder; 22Fr mendoza; [facility] PAST MEDICAL HISTORY: Medical History[1] PAST SURGICAL HISTORY: Surgical History[2] ALLERGIES: Allergies[3] HOME MEDICATIONS: Prescriptions Prior to Admission[4] FAMILY HISTORY: Family History[5] Social History: Tobacco Use History[6] Social History Substance and Sexual Activity Alcohol Use Yes Alcohol/week: 7.0 standard drinks of alcohol Types: 5 Cans of beer per week ROS: Constitutional: see HPI for chills and fevers HEENT: no blurry vision or eye redness Respiratory: negative for hemoptysis and shortness of breath Cardiovascular: negative for dyspnea and syncope Gastrointestinal: negative for jaundice, see HPI regarding nausea and vomiting Genitourinary: see HPI Hematologic/lymphatic: negative for bleeding Integumentary: no new bruises or lesions Musculoskeletal:negative for muscle weakness Neurological: negative for coordination problems and seizures All other systems negative PHYSICAL EXAM: VITALS: Vitals: 01/21/25 1729 01/21/251924 BP: (!) 165/84 (!) 180/69 BP Location: Left arm Patient Position: Sitting Pulse: 82 86 Resp: 18 18 Temp: 37.1 C (98.8 F) TempSrc: Temporal SpO2: 98% 100% General: Alert, in no acute distress Head: Normocephalic, atraumatic Respiratory: no respiratory distress, normal effort, no audible wheezes Cardiovascular: regular pulse and no cyanosis Abdomen: soft, non distended, non tender : No R. flank TTP, No L. flank TTP, and No suprapubic TTP 22Fr mendoza draining yellow urine DATA: LABS: BMP: Lab Results Component Value Date NA 139 01/21/2025 K 4.1 01/21/2025 CL 107 01/21/2025 CO2 22 (L) 01/21/2025 BUN 16 01/21/2025 CREATININE 1.32 (H) 01/21/2025 CALCIUM 9.5 01/21/2025 GLUCOSE 121 (H) 01/21/2025 CBC: Lab Results Component Value Date WBC 11.4 (H) 01/21/2025 HGB 13.0 01/21/2025 HCT 38.7 (L) 01/21/2025 MCV 87.4 01/21/2025 PLT 255 01/21/2025 RADIOLOGY: CT abdomen pelvis w contrast Final Result 1. Prostatomegaly which protrudes into the posterior bladder wall (correlate with MRI pelvis 01/10/2025). A Mendoza catheter is present in a decompressed bladder. 2. Colonic diverticulosis. 3. Additional findings, as above. Report Dictated on Electronically Signed By: Cheyenne Mcnamara MD Electronically Signed Date/Time: 01/21/2025 8:03 PM EDT XR chest 1 view Final Result FINDINGS AND IMPRESSION: SUPPORT DEVICES: None OSSEOUS STRUCTURES: Unremarkable. HEART AND MEDIASTINUM: The cardiomediastinal silhouette appears unchanged from the prior exam. LUNGS AND PLEURA: The lungs are clear. No sizable pleural effusion. Report Dictated on Electronically Signed By: Jani Estrada MD Electronically Signed Date/Time: 01/21/2025 6:57 PM EDT IMPRESSION: 64 y.o. male with bladder spasms PLAN: - no acute urologic surgical intervention at this time - maintain mendoza to straight drain - continue ant-cholinergics - recently changed to Vesicare 10mg - pyridium - continue plans for outpatient follow up for BPH management - dispo per ED Thank you for allowing me to participate in the care of your patient Dionte Dozier MD PGY-3 Urology 01/21/25 8:58 PM [1] Past Medical History: Diagnosis Date Benign prostatic hyperplasia 3 or 4 years ago Elevated PSA Late 2020 Erectile dysfunction Summer 2020 H/O exercise stress test Hypertension MACY on CPAP Osteomyelitis (HCC) RIGHT RING FINGER AND SCHEDULED FOR THE SURGERY ON 03/05/[address] [facility] [2] Past Surgical History: Procedure Laterality Date CHOLECYSTECTOMY [facility] COLONOSCOPY COLONOSCOPY FINGER AMPUTATION Right 03/05/2020 right small finger -dr jackson FINGER SURGERY Left [facility] FINGER SURGERY Left 02/20/2023 Mucous cyst excision long finger with with simple primary closure. arthrotomy DIP joint long finger with excision of osteophytes. Dr Jackson OTHER SURGICAL HISTORY EXCISION OF LIPOMA FROM THE BACK AT [facility] LONG TIME AGO SCAPHOID FRACTURE SURGERY Right [facility] WISDOM TOOTH EXTRACTION [3] Allergies Allergen Reactions Dust Mite Extract Unknown Molds & Smuts [4] (Not in a hospital admission) [5] Family History Problem Relation Name Age of Onset Arthritis Mother Rachel Toribio Arthritis Father Franki Toribio Hearing loss Father Franki Toribio [6] Social History Tobacco Use Smoking Status Former Current packs/day: 0.00 Types: Cigarettes Quit date: 04/13/1980 Years since quittin.8 Smokeless Tobacco Never Cosigned by Abimael Moseley MD at 01/22/2025 8:51 AM EDT Associated attestation - Abimael Moseley MD - 01/22/2025 8:51 AM EDT I saw and evaluated the patient, participating in the parker portions of the service. I reviewed the resident s note. I agree with the resident s findings and plan. Discussed with patient, explained given his obesity and massive prostate size, Holep may be the best option for him I referred him to Dr Vishnu Monique at [facility] for Holep Abimael Moseley MD [facility] [place] [facility] Work Phone: 01-21-2025 Consult note Formatting of th is note is different from the original. Urology Consult 01/21/2025 HISTORY OF PRESENT ILLNESS: The patient is a 64 y.o. male, known to our service, with past medical history as listed below and significant for BPH w/ urinary retention managed with a chronic mendoza who is here for concerns of mendoza dysfunction. Patient was seen in the office yesterday for similar complaints. At that time, mendoza was evaluated by Dr. Maradiaga who found catheter to be patent. He did have significant bladder spasms for which Dr. Maradiaga explained this is likely secondary to chronic retention in the setting of a very enlarged prostate. He is suppose to have follow up outpatient with one of the robotic urologists for discussions of a Suprapubic prostatectomy. According to the patient and family at bedside, patient has had intermittent episodes of suprapubic accompanied with leaking around mendoza. Additionally, reports passing some clots through his mendoza. Ultimately, he presents to the ED for urology evaluation. The mendoza catheter was flushed by the ED staff for patency but did trigger a bladder spasm and had slight resistance on the aspiration. Pt evaluated at bedside, he is AF and HDS. Mendoza draining yellow urine. ED/Hospital workup Cr 1.3 (@ BL); WBC 11.4; HGB 13; CTX; CT - prostamegaly, decompressed bladder; 22Fr mendoza; [facility] PAST MEDICAL HISTORY: Medical History[1] PAST SURGICAL HISTORY: Surgical History[2] ALLERGIES: Allergies[3] HOME MEDICATIONS: Prescriptions Prior to Admission[4] FAMILY HISTORY: Family History[5] Social History: Tobacco Use History[6] Social History Substance and Sexual Activity Alcohol Use Yes Alcohol/week: 7.0 standard drinks of alcohol Types: 5 Cans of beer per week ROS: Constitutional: see HPI for chills and fevers HEENT: no blurry vision or eye redness Respiratory: negative for hemoptysis and shortness of breath Cardiovascular: negative for dyspnea and syncope Gastrointestinal: negative for jaundice, see HPI regarding nausea and vomiting Genitourinary: see HPI Hematologic/lymphatic: negative for bleeding Integumentary: no new bruises or lesions Musculoskeletal:negative for muscle weakness Neurological: negative for coordination problems and seizures All other systems negative PHYSICAL EXAM: VITALS: Vitals: 01/21/25 1729 01/21/251924 BP: (!) 165/84 (!) 180/69 BP Location: Left arm Patient Position: Sitting Pulse: 82 86 Resp: 18 18 Temp: 37.1 C (98.8 F) TempSrc: Temporal SpO2: 98% 100% General: Alert, in no acute distress Head: Normocephalic, atraumatic Respiratory: no respiratory distress, normal effort, no audible wheezes Cardiovascular: regular pulse and no cyanosis Abdomen: soft, non distended, non tender : No R. flank TTP, No L. flank TTP, and No suprapubic TTP 22Fr mendoza draining yellow urine DATA: LABS: BMP: Lab Results Component Value Date NA 139 01/21/2025 K 4.1 01/21/2025 CL 107 01/21/2025 CO2 22 (L) 01/21/2025 BUN 16 01/21/2025 CREATININE 1.32 (H) 01/21/2025 CALCIUM 9.5 01/21/2025 GLUCOSE 121 (H) 01/21/2025 CBC: Lab Results Component Value Date WBC 11.4 (H) 01/21/2025 HGB 13.0 01/21/2025 HCT 38.7 (L) 01/21/2025 MCV 87.4 01/21/2025 PLT 255 01/21/2025 RADIOLOGY: CT abdomen pelvis w contrast Final Result 1. Prostatomegaly which protrudes into the posterior bladder wall (correlate with MRI pelvis 01/10/2025). A Mendoza catheter is present in a decompressed bladder. 2. Colonic diverticulosis. 3. Additional findings, as above. Report Dictated on Electronically Signed By: Cheyenne Mcnamara MD Electronically Signed Date/Time: 01/21/2025 8:03 PM EDT XR chest 1 view Final Result FINDINGS AND IMPRESSION: SUPPORT DEVICES: None OSSEOUS STRUCTURES: Unremarkable. HEART AND MEDIASTINUM: The cardiomediastinal silhouette appears unchanged from the prior exam. LUNGS AND PLEURA: The lungs are clear. No sizable pleural effusion. Report Dictated on Electronically Signed By: Jani Estrada MD Electronically Signed Date/Time: 01/21/2025 6:57 PM EDT IMPRESSION: 64 y.o. male with bladder spasms PLAN: - no acute urologic surgical intervention at this time - maintain mendoza to straight drain - continue ant-cholinergics - recently changed to Vesicare 10mg - pyridium - continue plans for outpatient follow up for BPH management - dispo per ED Thank you for allowing me to participate in the care of your patient Dionte Dozier MD PGY-3 Urology 01/21/25 8:58 PM [1] Past Medical History: Diagnosis Date Benign prostatic hyperplasia 3 or 4 years ago Elevated PSA Late 2020 Erectile dysfunction Summer 2020 H/O exercise stress test Hypertension MACY on CPAP Osteomyelitis (HCC) RIGHT RING FINGER AND SCHEDULED FOR THE SURGERY ON 03/05/[address] [facility] [2] Past Surgical History: Procedure Laterality Date CHOLECYSTECTOMY [facility] COLONOSCOPY COLONOSCOPY FINGER AMPUTATION Right 03/05/2020 right small finger -dr jackson FINGER SURGERY Left [facility] FINGER SURGERY Left 02/20/2023 Mucous cyst excision long finger with with simple primary closure. arthrotomy DIP joint long finger with excision of osteophytes. Dr Jackson OTHER SURGICAL HISTORY EXCISION OF LIPOMA FROM THE BACK AT [facility] LONG TIME AGO SCAPHOID FRACTURE SURGERY Right [facility] WISDOM TOOTH EXTRACTION [3] Allergies Allergen Reactions Dust Mite Extract Unknown Molds & Smuts [4] (Not in a hospital admission) [5] Family History Problem Relation Name Age of Onset Arthritis Mother Rachel Toribio Arthritis Father Franki Toribio Hearing loss Father Franki Toribio [6] Social History Tobacco Use Smoking Status Former Current packs/day: 0.00 Types: Cigarettes Quit date: 04/13/1980 Years since quittin.8 Smokeless Tobacco Never Cosigned by Abimael Moseley MD at 01/22/2025 8:51 AM EDT Associated attestation - Abimael Moseley MD - 01/22/2025 8:51 AM EDT I saw and evaluated the patient, participating in the parker portions of the service. I reviewed the resident s note. I agree with the resident s findings and plan. Discussed with patient, explained given his obesity and massive prostate size, Holep may be the best option for him I referred him to Dr Vishnu Monique at [facility] for Holep Abimael Moseley MD documented in this encounter [facility] 01-21-2025 Emergency department Note Bladder irrigated at bedside - 60 ml in but ORGANISATIONAL PSYCHOLOGIST was unable to pull any urine out. Pt stating he feels full and like he has to pee. Pt denies any pain at this time and tolerated procedure well. [facility] 01-21-2025 Emergency department Note Bladder irrigated at bedside - 60 ml in but ORGANISATIONAL PSYCHOLOGIST was unable to pull any urine out. Pt stating he feels full and like he has to pee. Pt denies any pain at this time and tolerated procedure well. EMERGENCY DEPARTMENT ENCOUNTER Pt Name: Stephane Toribio Birthdate 1960 Date of evaluation: 01/21/2025 ED Provider: RUBIN Pizarro CNP EDcare was supervised by Dr. Muñiz who independently examined and evaluated the patient. Please see their attestation note for further details. CHIEF COMPLAINT Chief Complaint Patient presents with Urinary Catheter Problem Reports having mendoza placed at another hospital Thursday while out of town, here today after completing antibiotics c/o passing blood clots/bladder spasms HISTORY OF PRESENT ILLNESS (Location/Symptom, Timing/Onset, Context/Setting, Quality, Duration, Modifying Factors, Severity) Note limiting factors. I wore appropriate PPE for the entirety of this encounter. HPI Stephane Toribio is a 64 y.o. history of reflux, anxiety, hematuria, obstructive sleep apnea, hypercholesterolemia presents with pain difficulty urinating. Patient states he was seen evaluated 01/15/2025 in [facility] in [place] for urinary retention and hematuria. Patient underwent CBI irrigation with continued bleeding underwent a cystoscopy and Fulguration of prostatic bleeders. Patient retained his Mendoza catheter. Was seen evaluated in the emergency department on 01/17/2025 difficulty urinating feeling like he had to force himself to urinate through the catheter. Patient also noted that his urine had a blood tinge. Blood work was obtained bladder scan patient had showed 124 mL 950 mL drained from the Mendoza bag. Patient was evaluated by urology thought to be having bladder spasms through the Mendoza catheter was draining appropriately. Patient saw his urologist yesterday Dr. Maradiaga Catheter was irrigated patent. He was notified and urology team Patient developed significant spasm and a great deal discomfort with 60 mL of saline in the bladder. And noticed. Spurts out around the catheter. Was thought to be secondary to a markedly enlarged prostate. Patient was dose of Solifenacin was increased to 10mg. Patient was also referred to robotic surgeon for next step in management of abnormal regions of the prostate. Patient states last night he had severe discomfort forcing himself to urinate by straining was unable to sleep due to frequency of these symptoms. Reports he has been placing toilet tissue around his penis and when he forces himself to urinate due the toilet tissue will become saturated with urine and some urine will drain into the bag. Family states that there was 700 mL of urine earlier today with small blood clots. Drained at 230 and currently has about 600 mL of urine in the bag patient continues to have intermittent episodes of difficulty urinating with yelling straining himself to urinate. Clothing is saturated with urine. He denies any fever but has had chills and nausea. He reports he feels like his heart rate is irregular will drop between 40 and 110 according to his watch. Patient states they believe he has atrial for but has not been able to catch it on the monitor he denies any chest pain or shortness of breath. No cough congestion runny nose sore throat. Presents now for evaluation of difficulty urinating and catheter malfunction Nursing Notes were reviewed. Limitations to history: None Outside historians: None REVIEW OF SYSTEMS Review of Systems Pertinent positives and negatives as per HPI. PAST MEDICAL HISTORY Medical History[1] SURGICAL HISTORY Surgical History[2] CURRENT MEDICATIONS Previous Medications ACETAMINOPHEN (TYLENOL) 325 MG TABLET Take 650 mg by mouth. ASPIRIN 81 MG EC TABLET Take 81 mg by mouth in the morning. B COMPLEX VITAMINS CAPSULE Take 1 capsule by mouth. BACILLUS COAGULANS-INULIN (PROBIOTIC) 1-250 BILLION-MG CAPSULE Take by mouth. CEPHALEXIN (KEFLEX) 500 MG CAPSULE 500 mg. CHOLECALCIFEROL (VITAMIN D-3) 50 MCG (2000 UT) CAPSULE Take 5,000 Units by mouth. ESOMEPRAZOLE (NEXIUM) [address] CAPSULE Take 40 mg by mouth. FINASTERIDE (PROSCAR) 5 MG TABLET Take 1 tablet (5 mg) by mouth daily. LISINOPRIL 20 MG TABLET Take 20 mg by mouth. LORATADINE (CLARITIN) 10 MG TABLET Take 10 mg by mouth daily. MELATONIN 5 MG TABLET Take 5 mg by mouth. [employer] NATURAL PRODUCTS (PROSTATE HEALTH) CAPSULE Take by mouth. MONTELUKAST (SINGULAIR) 10 MG TABLET Take 10 mg by mouth Nightly. MULTIPLE VITAMIN (MULTI-VITAMIN) TABLET Take 1 tablet by mouth in the morning. NAPROXEN (NAPROSYN) 500 MG TABLET Take 500 mg by mouth every 12 hours as needed. With food or milk OMEGA-3 (FISH OIL) 1200 MG CAPSULE Take 1,200 mg by mouth. OMEGA-3 ACID ETHYL ESTERS (LOVAZA) 1 G CAPSULE 2 tablets Every 24 hours. PROBIOTIC PRODUCT (PROBIOTIC BLEND) CAPSULE Every 24 hours. SILDENAFIL (VIAGRA) 100 MG TABLET take 1/2 to 1 tablet by mouth once daily if needed SOLIFENACIN (VESICARE) 10 MG TABLET Take 1 tablet (10 mg) by mouth daily. Swallow tablet whole; do not crush, chew, or split. SOLIFENACIN (VESICARE) 5 MG TABLET Take 1 tablet (5 mg) by mouth daily. Swallow tablet whole; do not crush, chew, or split. TAMSULOSIN (FLOMAX) 0.4 MG 24 HR CAPSULE 2 capsules Every 24 hours. TAMSULOSIN (FLOMAX) 0.4 MG 24 HR CAPSULE Take 1 capsule (0.4 mg) by mouth 2 times daily. Take 30 minutes after a meal. ALLERGIES Dust mite extract and Molds & smuts FAMILY HISTORY Family History[3] SOCIAL HISTORY Social History[4] SCREENINGS PHYSICAL EXAM ED Triage Vitals [01/21/25 1729] Temp Heart Rate Resp BP 37.1 C (98.8 F) 82 18 (!) 165/84 SpO2 Temp Source Heart Rate Source Patient Position 98 % Temporal Monitor Sitting BP Location FiO2 (%) Left arm -- General: Calm cooperative well-nourished well-hydrated nontoxic-appearing Psych: Awake alert affect is appropriate Vital signs reviewed HEENT: Head normocephalic atraumatic speech is clear facial movement symmetrical no focal deficits noted. Pupils 3 brisk reactive to light extraocular muscles are intact posterior pharynx not erythematous no exudate noted uvula midline palate is symmetrical mucous membranes moist Neck: Supple no adenopathy no nuchal rigidity stridor or trismus noted. Trachea midline. No pain palpation of the cervical spine Heart: Irregular rate and rhythm S1-S2 no murmurs rubs or gallops lungs: Clear to auscultation bilaterally equal chest rise no wheezing heard no use of accessory muscles or nasal flaring noted Abdomen: Soft nontender nondistended bowel sounds present x 4. No guarding or rigidity negative for Fleming sign and Hosford's point tenderness. No peritoneal signs noted. : Patient has distention over the suprapubic region. Firm. Bladder scan showed 68. No scrotal edema noted. No drainage from the penis. Back: No pain palpation of thoracic lumbar spine no step-offs crepitus or bruising no CVA tenderness no saddle paresthesias Skin: pale Warm dry no rashes lesions or sores Skin abrasion to the right upper thigh where the tape was placed Neurological: Cranial nerves II through XII grossly intact speech is clear facial movement symmetrical no focal deficits noted. Pushes and pulls are equal and strong sensation intact. Follows commands Extremities: Moves all extremities no difficulty Physical Exam DIAGNOSTIC RESULTS RADIOLOGY (Per Emergency Physician): Interpretation per the Radiologist below, if available at the time of this note: XR chest 1 view Final Result FINDINGS AND IMPRESSION: SUPPORT DEVICES: None OSSEOUS STRUCTURES: Unremarkable. HEART AND MEDIASTINUM: The cardiomediastinal silhouette appears unchanged from the prior exam. LUNGS AND PLEURA: The lungs are clear. No sizable pleural effusion. Report Dictated on Electronically Signed By: Jani Estrada MD Electronically Signed Date/Time: 01/21/2025 6:[address] abdomen pelvis w contrast (Results Pending) LABS: Labs Reviewed BASIC METABOLIC PANEL - Abnormal Result Value SODIUM 139 POTASSIUM 4.1 CHLORIDE 107 CARBON DIOXIDE 22 (*) UREA NITROGEN 16 CREATININE 1.32 (*) GLUCOSE 121 (*) CALCIUM 9.5 ANION GAP 10 eGFR 59.9 (*) CBC WITH AUTO DIFFERENTIAL - Abnormal Auto WBC 11.4 (*) RBC 4.43 Hemoglobin 13.0 Hematocrit 38.7 (*) MCV 87.4 MCH 29.3 MCHC 33.6 RDW 12.0 Platelets 255 MPV 9.3 nRBC 0.0 Neutrophils Relative 76.6 Lymphocytes Relative 13.2 (*) Monocytes Relative 8.3 Eosinophils Relative 1.1 Basophils Relative 0.3 Immature Grans % 0.5 Neutrophils Absolute 8.7 (*) Lymphocytes Absolute 1.5 Monocytes Absolute 0.9 Eosinophils Absolute 0.1 Basophils Absolute 0.0 Immature Grans Absolute 0.1 (*) HIGH SENSITIVITY TROPONIN, SERIAL BASELINE - Normal Troponin HS Serial Baseline 4 MAGNESIUM - Normal MAGNESIUM 1.9 Narrative: Higher values can be expected in females during menses. COMPLETE URINALYSIS WITH REFLEX TO CULTURE THYROID STIMULATING HORMONE HIGH SENSITIVITY TROPONIN, SERIAL, SECOND TEST All other labs were within normal range or not returned as of this dictation. EMERGENCY DEPARTMENT COURSE and DIFFERENTIAL DIAGNOSIS/MDM: Vitals: Vitals: 01/21/25 1729 BP: (!) 165/84 BP Location: Left arm Patient Position: Sitting Pulse: 82 Resp: 18 Temp: 37.1 C (98.8 F) TempSrc: Temporal SpO2: 98% Medications sodium chloride 0.9 % bolus 1,000 mL (1,000 mL IntraVENous New Bag 01/21/251911) morphine injection 2 mg (2 mg IntraVENous Given 01/21/251824) ondansetron (Zofran) injection 4 mg (4 mg IntraVENous Given 01/21/251824) phenazopyridine (Pyridium) tablet 200 mg (200 mg Oral Given 01/21/251828) trospium (Sanctura) tablet 20 mg (20 mg Oral Given 01/21/251828) MDM elements: The patient presented with chief complaint of difficulty urinating spasming straining to urinate irregular heartbeat. The differential diagnosis associated with this patient's presentation includes Mendoza displacement versus UTI versus urinary retention versus blood clot versus arrhythmia versus electrolyte abnormality versus dehydration versus versus mass affect. Our workup consisted of ordering/reviewing: Morphine, Zofran, Pyridium, normal saline, oxybutynin, chest x-ray, EKG, BMP, CBC, CMP, magnesium, troponin, TSH, bladder scan, cardiac monitoring consult to urology. Patient is in agreement with this plan. Patient reports improvement of symptoms upon reevaluation. Bladder irrigation was performed and was able to irrigate with 60 mL normal saline no resistance and unable to withdraw any fluid or urine after the instillation of the 60 mL. Patient now has the urge to urinate. Workup still pending at this time updated urology team Due to the end of shift at 1900 report [facility] Verena Hidalgo please see her note for laboratory data interpretation reevaluation and final disposition should be assuming care of patient at this time patient also seen evaluated with attending physician Dr. Muñiz Patient updated on plan of care amenable to plan consultation to urology team PROCEDURES: Unless otherwise noted below, none Procedures CRITICAL CARE TIME FINAL IMPRESSION 1. Bladder spasm 2. Lower abdominal pain DISPOSITION PATIENT REFERRED TO: No follow-up provider specified. DISCHARGE MEDICATIONS: New Prescriptions No medications on file (Comment: Please note this report has been produced using speech recognition software and may contain errors related to that system including errors in grammar, punctuation, and spelling, as well as words and phrases that may be inappropriate. If there are any questions or concerns please feel free to contact the dictating provider for clarification.) RUBIN Pizarro CNP (electronically signed) Emergency Medicine Provider [1] Past Medical History: Diagnosis Date Benign prostatic hyperplasia 3 or 4 years ago Elevated PSA Late 2020 Erectile dysfunction Summer 2020 H/O exercise stress test Hypertension MACY on CPAP Osteomyelitis (HCC) RIGHT RING FINGER AND SCHEDULED FOR THE SURGERY ON 03/05/20 AT [facility] [2] Past Surgical History: Procedure Laterality Date CHOLECYSTECTOMY [facility] COLONOSCOPY COLONOSCOPY FINGER AMPUTATION Right 03/05/2020 right small finger -dr jackson FINGER SURGERY Left [facility] FINGER SURGERY Left 02/20/2023 Mucous cyst excision long finger with with simple primary closure. arthrotomy DIP joint long finger with excision of osteophytes. Dr Jackson OTHER SURGICAL HISTORY EXCISION OF LIPOMA FROM THE BACK AT [facility] LONG TIME AGO SCAPHOID FRACTURE SURGERY Right [facility] WISDOM TOOTH EXTRACTION [3] Family History Problem Relation Name Age of Onset Arthritis Mother Rachel Toribio Arthritis Father Franki Toribio Hearing loss Father Franki Toribio [4] Social History Socioeconomic History Marital status: Tobacco Use Smoking status: Former Current packs/day: 0.00 Types: Cigarettes Quit date: 04/13/1980 Years since quittin.8 Smokeless tobacco: Never Vaping Use Vaping status: Never Used Substance and Sexual Activity Alcohol use: Yes Alcohol/week: 7.0 standard drinks of alcohol Types: 5 Cans of beer per week Drug use: Never Sexual activity: Yes Partners: Female control/protection: Other Comment: Histarectomy RUBIN Pizarro CNP 01/21/251914 Cosigned by Vani Muñiz MD at 01/21/2025 11:54 PM EDT Emergency Department Encounter [facility] EMERGENCY DEPT Patient: Stephane Toribio : 1960 Date of Evaluation: 01/21/2025 ED Supervising Physician: Vani Muñiz MD I personally evaluated Stephane Toribio and made/approved the management plan and take responsibility for the patient management. This will serve as my Supervisory note and shared attestation. I did perform a substantive portion of the visit including all aspects of the Medical Decision Making. I wore appropriate PPE for the entirety of this encounter. In brief, Stephane Toribio is a 64 y.o. that presents to the emergency department with a chief complaint of urinary Mendoza catheter issue. Patient reports that he was seen a few days ago for hematuria, he followed up with his urologist yesterday where irrigation was done and he was doing well, but then today started feeling like he had to force urine through his Mendoza catheter and was having most of the urine come out around his Mendoza catheter while urinating. Also reports feeling like he is having bladder spasms as well as having palpitations. Just finished a round of Keflex. Denies any fevers, vomiting, diarrhea, chest pain, shortness of breath. Focused exam: On exam, NAD, abdomen is soft and nontender, yellow urine in Mendoza bag. Brief ED course/MDM: ED Course as of 01/21/25 2557 Sat Jan 21, 2025 181 Patient presenting with concern for urinary blockage versus UTI. Patient also reports like he feels like he is having palpitations. No chest pain or shortness of breath. Was seen a few days ago for urinary Mendoza blockage due to hematuria, had it irrigated yesterday by urology, today he feels like strain in order to get urine to pass through the Mendoza and he feels like is having bladder spasms. Differential for this patient includes Mendoza obstruction, UTI, cardiac dysrhythmia, metabolic/electrolyte derangement, ACS. Labs and imaging ordered for further evaluation. Urology was consulted, recommending antispasmodics along with bladder irrigation. [JS] 1812 ECG 12 lead (Now) Sinus rhythm with supraventricular bigeminy, no ST elevations, intervals WNL [JS] 1837 Auto WBC(!): 11.4 [JS] 1837 HEMOGLOBIN: 13.0 [JS] 2106 Bladder irrigation was performed, unable to withdraw any of the fluid that was instilled. CT imaging was ordered, patient given antispasmodics per urology recommendations. [JS] 2107 CT abdomen pelvis w contrast 1. Prostatomegaly which protrudes into the posterior bladder wall (correlate with MRI pelvis 01/10/2025). A Mendoza catheter is present in a decompressed bladder. 2. Colonic diverticulosis. [JS] 2107 ECG 12 lead (Now) No acute cardiopulmonary process [JS] 2107 Creatinine(!): 1.32 Stable [JS] 2108 POTASSIUM: 4.1 [JS] 2108 MAGNESIUM: 1.9 [JS] 2108 THYROID STIMULATING HORMONE: 0.94 [JS] 2108 Troponin HS Serial Baseline: 4 [JS] 2250 Complete Urinalysis with reflex to Culture(!) Rocephin ordered. [JS] 2250 2h Troponin HS (Serial 2nd Troponin): 4 [JS] 2250 Patient's still having symptoms after antispasmodics. Discussed with urology who is agreeable to having patient admitted for observation. [JS] ED Course User Index [JS] Vani Muñiz MD [TB] Jade Whitt APRN - STARCH TREATING ASSISTANT Diagnoses as of 01/21/252256 Bladder spasm Lower abdominal pain Urinary tract infection associated with indwelling urethral catheter, initial encounter Medical Decision Making Problems Addressed: Bladder spasm: complicated acute illness or injury Lower abdominal pain: complicated acute illness or injury Amount and/or Complexity of Data Reviewed Labs: ordered. Decision-making details documented in ED Course. Radiology: ordered. Decision-making details documented in ED Course. ECG/medicine tests: ordered and independent interpretation performed. Decision-making details documented in ED Course. Risk Prescription drug management. Decision regarding hospitalization. Medications administered in the ED include those listed below. Clinical impression: 1. Bladder spasm 2. Lower abdominal pain 3. Urinary tract infection associated with indwelling urethral catheter, initial encounter Medications cefTRIAXone (Rocephin) 1,000 mg in sodium chloride 0.9 % 50 mL IVPB Mini-Bag Plus (1,000 mg IntraVENous New Bag 01/21/252127) morphine injection 2 mg (2 mg IntraVENous Given 01/21/251824) ondansetron (Zofran) injection 4 mg (4 mg IntraVENous Given 01/21/251824) sodium chloride 0.9 % bolus 1,000 mL (0 mL IntraVENous Stopped 01/21/252126) phenazopyridine (Pyridium) tablet 200 mg (200 mg Oral Given 01/21/251828) trospium (Sanctura) tablet 20 mg (20 mg Oral Given 01/21/251828) iopamidol (Isovue-370) 76 % injection 75 mL (75 mL IntraVENous Given 01/21/251943) All diagnostic, treatment, and disposition decisions were made by myself in conjunction with the RAMON. For all further details of the patient's emergency department visit, please see their documentation. Vani Muñiz MD (electronically signed) Emergency Medicine Provider (Comment: Please note this report has been produced using speech recognition software and may contain errors related to that system including errors in grammar, punctuation, and spelling, as well as words and phrases that may be inappropriate. If there are any questions or concerns please feel free to contact the dictating provider for clarification.) Vani Muñiz MD 01/21/25 0277 Emergency Department Encounter Location: [facility] [address] Patient: Stephane Toribio : 1960 Date of evaluation: 01/21/2025 ED Provider: Verena Hidalgo PA-C Time received sign-out: 1899 Stephane Toribio was checked out to me by Jade Woo CNP. Please see his/her initial documentation for details of the patient's initial ED presentation, physical exam and completed studies. I did perform a substantive portion of the visit including all aspects of the Medical Decision Making. In brief, Stephane Toribio is a 64 y.o. male that presented to the emergency department for evaluation with concerns for Mendoza catheter malfunction. Patient has been seen multiple times recently with concerns for Mendoza catheter malfunction. Known to Dr. Maradiaga. Recently had abnormal PSA labs and imaging. Is in the process of getting scheduled for robotic prostatectomy. Presents back to the emergency department because he is having significant bladder spasms, and feels his Mendoza catheter is not draining appropriately. I have reviewed and interpreted all of the currently available lab results and diagnostics from this visit: Results for orders placed or performed during the hospital encounter of 01/21/25 ECG 12 lead (Now) Collection Time: 01/21/25 5:55 PM Result Value Ref Range Heart Rate 87 bpm QRSD Interval 92 ms QT Interval 349 ms QTC Interval 420 ms P [place] 60 degrees QRS [place] 45 degrees T Wave [place] 62 degrees MI Interval 154 ms Basic metabolic panel Collection Time: 01/21/25 6:23 PM Result Value Ref Range SODIUM 139 136 - 145 mmol/L POTASSIUM 4.1 3.5 - 5.1 mmol/L CHLORIDE 107 98 - 107 mmol/L CARBON DIOXIDE 22 (L) 23 - 31 mmol/L UREA NITROGEN 16 9 - 23 mg/dL CREATININE 1.32 (H) 0.72 - 1.25 mg/dL GLUCOSE 121 (H) 82 - 115 mg/dL CALCIUM 9.5 8.8 - 10.0 mg/dL ANION GAP 10 3 - 13 mmol/L eGFR 59.9 (L) >60.0 mL/min/1.73m*2 CBC auto differential Collection Time: 01/21/25 6:23 PM Result Value Ref Range Auto WBC 11.4 (H) 3.6 - 10.7 10*3/uL RBC 4.43 4.40 - 5.90 10*6/uL Hemoglobin 13.0 13.0 - 18.0 g/dL Hematocrit 38.7 (L) 40.0 - 52.0 % MCV 87.4 77.0 - 99.0 fL MCH 29.3 26.0 - 34.0 pg MCHC 33.6 30.5 - 36.0 % RDW 12.0 11.5 - 15.0 % Platelets 255 140 - 440 10*3/uL MPV 9.3 9.0 - 12.7 fL nRBC 0.0 0.0 - 2.0 /100 WBCs Neutrophils Relative 76.6 38.0 - 82.0 % Lymphocytes Relative 13.2 (L) 15.0 - 45.0 % Monocytes Relative 8.3 5.0 - 13.0 % Eosinophils Relative 1.1 0.0 - 6.0 % Basophils Relative 0.3 0.0 - 2.0 % Immature Grans % 0.5 0.0 - 2.0 % Neutrophils Absolute 8.7 (H) 1.8 - 7.5 10*3/uL Lymphocytes Absolute 1.5 1.0 - 4.3 10*3/uL Monocytes Absolute 0.9 0.0 - 0.9 10*3/uL Eosinophils Absolute 0.1 0.0 - 0.5 10*3/uL Basophils Absolute 0.0 0.0 - 0.2 10*3/uL Immature Grans Absolute 0.1 (H) <0.1 10*3/uL Serial Troponin, High Sensitivity Collection Time: 01/21/25 6:23 PM Result Value Ref Range Troponin HS Serial Baseline 4 <=35 ng/L TSH Collection Time: 01/21/25 6:23 PM Result Value Ref Range THYROID STIMULATING HORMONE 0.94 0.35 - 4.94 uIU/mL Magnesium Collection Time: 01/21/25 6:23 PM Result Value Ref Range MAGNESIUM 1.9 1.6 - 2.6 mg/dL Complete Urinalysis with reflex to Culture Collection Time: 01/21/25 9:24 PM Result Value Ref Range Color, Urine Dark Yellow (A) Lt. Yellow Clarity, Urine Clear Clear pH, Urine 7.0 5.0 - 8.0 pH Leukocytes, Urine 250 (A) Negative Joe/uL Nitrite, Urine Negative Negative Protein, Urine Negative Negative mg/dL Glucose, Urine Normal Normal (<70) mg/dL Bilirubin, Urine Negative Negative mg/dL Ketones, Urine Negative Negative mg/dL Urobilinogen, Urine Normal Normal (0-1) mg/dL Blood, Urine 0.2 (A) Negative mg/dL RBC, Urine 26-50 (A) 0 - 2 /HPF WBC, Urine 6-10 (A) 0 - 5 /HPF Squamous Epithelial, Urine Negative 3 - 5 /HPF Bacteria, Urine Few (A) Negative /HPF Mucus, Urine Few Negative /LPF SPECIFIC GRAVITY OF URINE (NUMERIC) 1.023 1.005 - 1.030 Troponin, High Sensitivity, Serial, Second Test Collection Time: 01/21/25 9:26 PM Result Value Ref Range 2h Troponin HS (Serial 2nd Troponin) 4 <=35 ng/L CT abdomen pelvis w contrast Final Result 1. Prostatomegaly which protrudes into the posterior bladder wall (correlate with MRI pelvis 01/10/2025). A Mendoza catheter is present in a decompressed bladder. 2. Colonic diverticulosis. 3. Additional findings, as above. Report Dictated on Electronically Signed By: Cheyenne Mcnamara MD Electronically Signed Date/Time: 01/21/2025 8:03 PM EDT XR chest 1 view Final Result FINDINGS AND IMPRESSION: SUPPORT DEVICES: None OSSEOUS STRUCTURES: Unremarkable. HEART AND MEDIASTINUM: The cardiomediastinal silhouette appears unchanged from the prior exam. LUNGS AND PLEURA: The lungs are clear. No sizable pleural effusion. Report Dictated on Electronically Signed By: Jani Estrada MD Electronically Signed Date/Time: 01/21/2025 6:57 PM EDT Final ED Course and MDM: In brief, Stephane Toribio is a 64 y.o. male whose care was signed out to me by the outgoing provider. In brief, he presented to the emergency department for reevaluation of Mendoza catheter with concerns for malfunction, with ongoing bladder spasms. Signed out to me by outgoing provider with ultimate disposition pending results of his CT imaging, neurology recommendations. CT: IMPRESSION: 1. Prostatomegaly which protrudes into the posterior bladder wall (correlate with MRI pelvis 01/10/2025). A Mendoza catheter is present in a decompressed bladder. 2. Colonic diverticulosis. 3. Additional findings, as above. UA: Dark yellow with 250 leukocyte esterase's, RBCs, WBCs, and bacteria concerning for infection. Started on ceftriaxone. Discussed case with urology resident. Please see consult note for full detail. Concern that patient is having ongoing symptoms and has been treated with multiple different antispasmodics. Concerned that patient's pain is not well-controlled, do believe he would benefit from CDU admission for pain control overnight and repeat evaluation by urology team in the morning. Discussed this with the patient he was agreeable with plans for admission. Paged US [facility] and spoke with Dr. Rodríguez who accepted patient for admission. Admission orders placed. Patient main stable during remainder of ER course and was transferred to floor in stable condition with stable vital signs Medications cefTRIAXone (Rocephin) 1,000 mg in sodium chloride 0.9 % 50 mL IVPB Mini-Bag Plus (0 mg IntraVENous Stopped 01/21/25 1673) aspirin EC tablet 81 mg (81 mg Oral Given 01/22/25 0841) cholecalciferol (Vitamin D-3) tablet 5,000 Units (5,000 Units Oral Given 01/22/25 0841) lisinopril tablet 20 mg (20 mg Oral Given 01/22/25 0841) melatonin tablet 5 mg (5 mg Oral Given 01/22/25 0109) tamsulosin (Flomax) 24 hr capsule 0.8 mg (0.8 mg Oral Given 01/22/25 0842) naproxen (Naprosyn) tablet 500 mg (has no administration in time range) finasteride (Proscar) tablet 5 mg (5 mg Oral Given 01/22/25 0843) pantoprazole (ProtoNix) EC tablet 40 mg (40 mg Oral Given 01/22/25 0437) therapeutic multivitamin-minerals (Theragran-M) tablet (1 tablet Oral Given 01/22/25 0841) trospium (Sanctura) tablet 20 mg (20 mg Oral Given 01/22/25 1635) acetaminophen (Tylenol) tablet 650 mg (650 mg Oral Given 01/22/25 0120) Or acetaminophen (Tylenol) suppository 650 mg ( Rectal See Alternative 01/22/25 012) ondansetron ODT (Zofran-ODT) disintegrating tablet 4 mg (has no administration in time range) Or ondansetron (Zofran) injection 4 mg (has no administration in time range) polyethylene glycol (PEG) 3350 (Miralax) packet 17 g (has no administration in time range) influenza vaccine A&B surf ant adjuvanted (Fluad) HIGH-DOSE injection 0.5 mL (0.5 mL IntraMUSCular Not Given 01/21/252321) enoxaparin (Lovenox) syringe 40 mg (40 mg SubCUTAneous Given 01/21/252323) HYDROcodone-acetaminophen (Monette) 5-325 MG per tablet 1 tablet (1 tablet Oral Given 01/22/251857) naloxone (Narcan) injection 0.4 mg (has no administration in time range) morphine injection 2 mg (2 mg IntraVENous Given 01/21/251824) ondansetron (Zofran) injection 4 mg (4 mg IntraVENous Given 01/21/251824) sodium chloride 0.9 % bolus 1,000 mL (0 mL IntraVENous Stopped 01/21/252126) phenazopyridine (Pyridium) tablet 200 mg (200 mg Oral Given 01/21/251828) trospium (Sanctura) tablet 20 mg (20 mg Oral Given 01/21/251828) iopamidol (Isovue-370) 76 % injection 75 mL (75 mL IntraVENous Given 01/21/251943) Final Impression 1. Bladder spasm 2. Lower abdominal pain 3. Urinary tract infection associated with indwelling urethral catheter, initial encounter Verena Hidalgo PA-C [employer] Verena Hidalgo PA-C 01/22/252007 Cosigned by Vani Muñiz MD at 01/23/2025 3:36 PM EDT documented in this encounter [facility] 01-21-2025 Physician Emergency department Note EMERGENCY DEPARTMENT ENCOUNTER Pt Name: Stephane Toribio Birthdate 1960 Date of evaluation: 01/21/2025 ED Provider: RUBIN Pizarro CNP EDcare was supervised by Dr. Muñiz who independently examined and evaluated the patient. Please see their attestation note for further details. CHIEF COMPLAINT Chief Complaint Patient presents with Urinary Catheter Problem Reports having mendoza placed at another hospital Thursday while out of town, here today after completing antibiotics c/o passing blood clots/bladder spasms HISTORY OF PRESENT ILLNESS (Location/Symptom, Timing/Onset, Context/Setting, Quality, Duration, Modifying Factors, Severity) Note limiting factors. I wore appropriate PPE for the entirety of this encounter. HPI Stephane Toribio is a 64 y.o. history of reflux, anxiety, hematuria, obstructive sleep apnea, hypercholesterolemia presents with pain difficulty urinating. Patient states he was seen evaluated 01/15/2025 in [facility] in [place] for urinary retention and hematuria. Patient underwent CBI irrigation with continued bleeding underwent a cystoscopy and Fulguration of prostatic bleeders. Patient retained his Mendoza catheter. Was seen evaluated in the emergency department on 01/17/2025 difficulty urinating feeling like he had to force himself to urinate through the catheter. Patient also noted that his urine had a blood tinge. Blood work was obtained bladder scan patient had showed 124 mL 950 mL drained from the Mendoza bag. Patient was evaluated by urology thought to be having bladder spasms through the Mendoza catheter was draining appropriately. Patient saw his urologist yesterday Dr. Maradiaga Catheter was irrigated patent. He was notified and urology team Patient developed significant spasm and a great deal discomfort with 60 mL of saline in the bladder. And noticed. Spurts out around the catheter. Was thought to be secondary to a markedly enlarged prostate. Patient was dose of Solifenacin was increased to 10mg. Patient was also referred to robotic surgeon for next step in management of abnormal regions of the prostate. Patient states last night he had severe discomfort forcing himself to urinate by straining was unable to sleep due to frequency of these symptoms. Reports he has been placing toilet tissue around his penis and when he forces himself to urinate due the toilet tissue will become saturated with urine and some urine will drain into the bag. Family states that there was 700 mL of urine earlier today with small blood clots. Drained at 230 and currently has about 600 mL of urine in the bag patient continues to have intermittent episodes of difficulty urinating with yelling straining himself to urinate. Clothing is saturated with urine. He denies any fever but has had chills and nausea. He reports he feels like his heart rate is irregular will drop between 40 and 110 according to his watch. Patient states they believe he has atrial for but has not been able to catch it on the monitor he denies any chest pain or shortness of breath. No cough congestion runny nose sore throat. Presents now for evaluation of difficulty urinating and catheter malfunction Nursing Notes were reviewed. Limitations to history: None Outside historians: None REVIEW OF SYSTEMS Review of Systems Pertinent positives and negatives as per HPI. PAST MEDICAL HISTORY Medical History[1] SURGICAL HISTORY Surgical History[2] CURRENT MEDICATIONS Previous Medications ACETAMINOPHEN (TYLENOL) 325 MG TABLET Take 650 mg by mouth. ASPIRIN 81 MG EC TABLET Take 81 mg by mouth in the morning. B COMPLEX VITAMINS CAPSULE Take 1 capsule by mouth. BACILLUS COAGULANS-INULIN (PROBIOTIC) 1-250 BILLION-MG CAPSULE Take by mouth. CEPHALEXIN (KEFLEX) 500 MG CAPSULE 500 mg. CHOLECALCIFEROL (VITAMIN D-3) 50 MCG (2000 UT) CAPSULE Take 5,000 Units by mouth. ESOMEPRAZOLE (NEXIUM) [address] CAPSULE Take 40 mg by mouth. FINASTERIDE (PROSCAR) 5 MG TABLET Take 1 tablet (5 mg) by mouth daily. LISINOPRIL 20 MG TABLET Take 20 mg by mouth. LORATADINE (CLARITIN) 10 MG TABLET Take 10 mg by mouth daily. MELATONIN 5 MG TABLET Take 5 mg by mouth. MISC NATURAL PRODUCTS (PROSTATE HEALTH) CAPSULE Take by mouth. MONTELUKAST (SINGULAIR) 10 MG TABLET Take 10 mg by mouth Nightly. MULTIPLE VITAMIN (MULTI-VITAMIN) TABLET Take 1 tablet by mouth in the morning. NAPROXEN (NAPROSYN) 500 MG TABLET Take 500 mg by mouth every 12 hours as needed. With food or milk OMEGA-3 (FISH OIL) 1200 MG CAPSULE Take 1,200 mg by mouth. OMEGA-3 ACID ETHYL ESTERS (LOVAZA) 1 G CAPSULE 2 tablets Every 24 hours. PROBIOTIC PRODUCT (PROBIOTIC BLEND) CAPSULE Every 24 hours. SILDENAFIL (VIAGRA) 100 MG TABLET take 1/2 to 1 tablet by mouth once daily if needed SOLIFENACIN (VESICARE) 10 MG TABLET Take 1 tablet (10 mg) by mouth daily. Swallow tablet whole; do not crush, chew, or split. SOLIFENACIN (VESICARE) 5 MG TABLET Take 1 tablet (5 mg) by mouth daily. Swallow tablet whole; do not crush, chew, or split. TAMSULOSIN (FLOMAX) 0.4 MG 24 HR CAPSULE 2 capsules Every 24 hours. TAMSULOSIN (FLOMAX) 0.4 MG 24 HR CAPSULE Take 1 capsule (0.4 mg) by mouth 2 times daily. Take 30 minutes after a meal. ALLERGIES Dust mite extract and Molds & smuts FAMILY HISTORY Family History[3] SOCIAL HISTORY Social History[4] SCREENINGS PHYSICAL EXAM ED Triage Vitals [01/21/25 1729] Temp Heart Rate Resp BP 37.1 C (98.8 F) 82 18 (!) 165/84 SpO2 Temp Source Heart Rate Source Patient Position 98 % Temporal Monitor Sitting BP Location FiO2 (%) Left arm -- General: Calm cooperative well-nourished well-hydrated nontoxic-appearing Psych: Awake alert affect is appropriate Vital signs reviewed HEENT: Head normocephalic atraumatic speech is clear facial movement symmetrical no focal deficits noted. Pupils 3 brisk reactive to light extraocular muscles are intact posterior pharynx not erythematous no exudate noted uvula midline palate is symmetrical mucous membranes moist Neck: Supple no adenopathy no nuchal rigidity stridor or trismus noted. Trachea midline. No pain palpation of the cervical spine Heart: Irregular rate and rhythm S1-S2 no murmurs rubs or gallops lungs: Clear to auscultation bilaterally equal chest rise no wheezing heard no use of accessory muscles or nasal flaring noted Abdomen: Soft nontender nondistended bowel sounds present x 4. No guarding or rigidity negative for Fleming sign and Hosford's point tenderness. No peritoneal signs noted. : Patient has distention over the suprapubic region. Firm. Bladder scan showed 68. No scrotal edema noted. No drainage from the penis. Back: No pain palpation of thoracic lumbar spine no step-offs crepitus or bruising no CVA tenderness no saddle paresthesias Skin: pale Warm dry no rashes lesions or sores Skin abrasion to the right upper thigh where the tape was placed Neurological: Cranial nerves II through XII grossly intact speech is clear facial movement symmetrical no focal deficits noted. Pushes and pulls are equal and strong sensation intact. Follows commands Extremities: Moves all extremities no difficulty Physical Exam DIAGNOSTIC RESULTS RADIOLOGY (Per Emergency Physician): Interpretation per the Radiologist below, if available at the time of this note: XR chest 1 view Final Result FINDINGS AND IMPRESSION: SUPPORT DEVICES: None OSSEOUS STRUCTURES: Unremarkable. HEART AND MEDIASTINUM: The cardiomediastinal silhouette appears unchanged from the prior exam. LUNGS AND PLEURA: The lungs are clear. No sizable pleural effusion. Report Dictated on Electronically Signed By: Jani Estrada MD Electronically Signed Date/Time: 01/21/2025 6:[address] abdomen pelvis w contrast (Results Pending) LABS: Labs Reviewed BASIC METABOLIC PANEL - Abnormal Result Value SODIUM 139 POTASSIUM 4.1 CHLORIDE 107 CARBON DIOXIDE 22 (*) UREA NITROGEN 16 CREATININE 1.32 (*) GLUCOSE 121 (*) CALCIUM 9.5 ANION GAP 10 eGFR 59.9 (*) CBC WITH AUTO DIFFERENTIAL - Abnormal Auto WBC 11.4 (*) RBC 4.43 Hemoglobin 13.0 Hematocrit 38.7 (*) MCV 87.4 MCH 29.3 MCHC 33.6 RDW 12.0 Platelets 255 MPV 9.3 nRBC 0.0 Neutrophils Relative 76.6 Lymphocytes Relative 13.2 (*) Monocytes Relative 8.3 Eosinophils Relative 1.1 Basophils Relative 0.3 Immature Grans % 0.5 Neutrophils Absolute 8.7 (*) Lymphocytes Absolute 1.5 Monocytes Absolute 0.9 Eosinophils Absolute 0.1 Basophils Absolute 0.0 Immature Grans Absolute 0.1 (*) HIGH SENSITIVITY TROPONIN, SERIAL BASELINE - Normal Troponin HS Serial Baseline 4 MAGNESIUM - Normal MAGNESIUM 1.9 Narrative: Higher values can be expected in females during menses. COMPLETE URINALYSIS WITH REFLEX TO CULTURE THYROID STIMULATING HORMONE HIGH SENSITIVITY TROPONIN, SERIAL, SECOND TEST All other labs were within normal range or not returned as of this dictation. EMERGENCY DEPARTMENT COURSE and DIFFERENTIAL DIAGNOSIS/MDM: Vitals: Vitals: 01/21/25 1729 BP: (!) 165/84 BP Location: Left arm Patient Position: Sitting Pulse: 82 Resp: 18 Temp: 37.1 C (98.8 F) TempSrc: Temporal SpO2: 98% Medications sodium chloride 0.9 % bolus 1,000 mL (1,000 mL IntraVENous New Bag 01/21/251911) morphine injection 2 mg (2 mg IntraVENous Given 01/21/251824) ondansetron (Zofran) injection 4 mg (4 mg IntraVENous Given 01/21/251824) phenazopyridine (Pyridium) tablet 200 mg (200 mg Oral Given 01/21/251828) trospium (Sanctura) tablet 20 mg (20 mg Oral Given 01/21/251828) MDM elements: The patient presented with chief complaint of difficulty urinating spasming straining to urinate irregular heartbeat. The differential diagnosis associated with this patient's presentation includes Mendoza displacement versus UTI versus urinary retention versus blood clot versus arrhythmia versus electrolyte abnormality versus dehydration versus versus mass affect. Our workup consisted of ordering/reviewing: Morphine, Zofran, Pyridium, normal saline, oxybutynin, chest x-ray, EKG, BMP, CBC, CMP, magnesium, troponin, TSH, bladder scan, cardiac monitoring consult to urology. Patient is in agreement with this plan. Patient reports improvement of symptoms upon reevaluation. Bladder irrigation was performed and was able to irrigate with 60 mL normal saline no resistance and unable to withdraw any fluid or urine after the instillation of the 60 mL. Patient now has the urge to urinate. Workup still pending at this time updated urology team Due to the end of shift at 1900 report given to oncoming provider Verena Hidalgo please see her note for laboratory data interpretation reevaluation and final disposition should be assuming care of patient at this time patient also seen evaluated with attending physician Dr. Muñiz Patient updated on plan of care amenable to plan consultation to urology team PROCEDURES: Unless otherwise noted below, none Procedures CRITICAL CARE TIME FINAL IMPRESSION 1. Bladder spasm 2. Lower abdominal pain DISPOSITION PATIENT REFERRED TO: No follow-up provider specified. DISCHARGE MEDICATIONS: New Prescriptions No medications on file (Comment: Please note this report has been produced using speech recognition software and may contain errors related to that system including errors in grammar, punctuation, and spelling, as well as words and phrases that may be inappropriate. If there are any questions or concerns please feel free to contact the dictating provider for clarification.) RUBIN Pizarro CNP (electronically signed) Emergency Medicine Provider [1] Past Medical History: Diagnosis Date Benign prostatic hyperplasia 3 or 4 years ago Elevated PSA Late 2020 Erectile dysfunction Summer 2020 H/O exercise stress test Hypertension MACY on CPAP Osteomyelitis (HCC) RIGHT RING FINGER AND SCHEDULED FOR THE SURGERY ON 03/05/[address] [facility] [2] Past Surgical History: Procedure Laterality Date CHOLECYSTECTOMY [facility] COLONOSCOPY COLONOSCOPY FINGER AMPUTATION Right 03/05/2020 right small finger -dr jackson FINGER SURGERY Left [facility] FINGER SURGERY Left 02/20/2023 Mucous cyst excision long finger with with simple primary closure. arthrotomy DIP joint long finger with excision of osteophytes. Dr Jackson OTHER SURGICAL HISTORY EXCISION OF LIPOMA FROM THE BACK AT [facility] LONG TIME AGO SCAPHOID FRACTURE SURGERY Right [facility] WISDOM TOOTH EXTRACTION [3] Family History Problem Relation Name Age of Onset Arthritis Mother Rachel Toribio Arthritis Father Franki Toribio Hearing loss Father Franki Toribio [4] Social History Socioeconomic History Marital status: Tobacco Use Smoking status: Former Current packs/day: 0.00 Types: Cigarettes Quit date: 04/13/1980 Years since quittin.8 Smokeless tobacco: Never Vaping Use Vaping status: Never Used Substance and Sexual Activity Alcohol use: Yes Alcohol/week: 7.0 standard drinks of alcohol Types: 5 Cans of beer per week Drug use: Never Sexual activity: Yes Partners: Female control/protection: Other Comment: Histarectomy RUBIN Pizarro CNP 01/21/251914 Cosigned by Vani Muñiz MD at 01/21/2025 11:54 PM EDT [facility] 01-21-2025 Physician Emergency department Note Emergency Department Encounter [facility] EMERGENCY DEPT Patient: Stephane Toribio : 1960 Date of Evaluation: 01/21/2025 ED Supervising Physician: Vani Muñiz MD I personally evaluated Stephane Toribio and made/approved the management plan and take responsibility for the patient management. This will serve as my Supervisory note and shared attestation. I did perform a substantive portion of the visit including all aspects of the Medical Decision Making. I wore appropriate PPE for the entirety of this encounter. In brief, Stephane Toribio is a 64 y.o. that presents to the emergency department with a chief complaint of urinary Mendoza catheter issue. Patient reports that he was seen a few days ago for hematuria, he followed up with his urologist yesterday where irrigation was done and he was doing well, but then today started feeling like he had to force urine through his Mendoza catheter and was having most of the urine come out around his Mendoza catheter while urinating. Also reports feeling like he is having bladder spasms as well as having palpitations. Just finished a round of Keflex. Denies any fevers, vomiting, diarrhea, chest pain, shortness of breath. Focused exam: On exam, NAD, abdomen is soft and nontender, yellow urine in Mendoza bag. Brief ED course/MDM: ED Course as of 01/21/25 1207 Sat Jan 21, 2025 1811 Patient presenting with concern for urinary blockage versus UTI. Patient also reports like he feels like he is having palpitations. No chest pain or shortness of breath. Was seen a few days ago for urinary Mendoza blockage due to hematuria, had it irrigated yesterday by urology, today he feels like strain in order to get urine to pass through the Mendoza and he feels like is having bladder spasms. Differential for this patient includes Mendoza obstruction, UTI, cardiac dysrhythmia, metabolic/electrolyte derangement, ACS. Labs and imaging ordered for further evaluation. Urology was consulted, recommending antispasmodics along with bladder irrigation. [JS] 1813 ECG 12 lead (Now) Sinus rhythm with supraventricular bigeminy, no ST elevations, intervals WNL [JS] 1837 Auto WBC(!): 11.4 [JS] 1837 HEMOGLOBIN: 13.0 [JS] 2106 Bladder irrigation was performed, unable to withdraw any of the fluid that was instilled. CT imaging was ordered, patient given antispasmodics per urology recommendations. [JS] 2107 CT abdomen pelvis w contrast 1. Prostatomegaly which protrudes into the posterior bladder wall (correlate with MRI pelvis 01/10/2025). A Mendoza catheter is present in a decompressed bladder. 2. Colonic diverticulosis. [JS] 2107 ECG 12 lead (Now) No acute cardiopulmonary process [JS] 2107 Creatinine(!): 1.32 Stable [JS] 2108 POTASSIUM: 4.1 [JS] 9 MAGNESIUM: 1.9 [JS] 2108 THYROID STIMULATING HORMONE: 0.94 [JS] 2108 Troponin HS Serial Baseline: 4 [JS] 2251 Complete Urinalysis with reflex to Culture(!) Rocephin ordered. [JS] 2251 2h Troponin HS (Serial 2nd Troponin): 4 [JS] 2251 Patient's still having symptoms after antispasmodics. Discussed with urology who is agreeable to having patient admitted for observation. [JS] ED Course User Index [JS] Vani Muñiz MD [TB] Jade Whitt, ORGANISATIONAL PSYCHOLOGIST - STARCH TREATING ASSISTANT Diagnoses as of 01/21/252256 Bladder spasm Lower abdominal pain Urinary tract infection associated with indwelling urethral catheter, initial encounter Medical Decision Making Problems Addressed: Bladder spasm: complicated acute illness or injury Lower abdominal pain: complicated acute illness or injury Amount and/or Complexity of Data Reviewed Labs: ordered. Decision-making details documented in ED Course. Radiology: ordered. Decision-making details documented in ED Course. ECG/medicine tests: ordered and independent interpretation performed. Decision-making details documented in ED Course. Risk Prescription drug management. Decision regarding hospitalization. Medications administered in the ED include those listed below. Clinical impression: 1. Bladder spasm 2. Lower abdominal pain 3. Urinary tract infection associated with indwelling urethral catheter, initial encounter Medications cefTRIAXone (Rocephin) 1,000 mg in sodium chloride 0.9 % 50 mL IVPB Mini-Bag Plus (1,000 mg IntraVENous New Bag 01/21/252127) morphine injection 2 mg (2 mg IntraVENous Given 01/21/251824) ondansetron (Zofran) injection 4 mg (4 mg IntraVENous Given 01/21/251824) sodium chloride 0.9 % bolus 1,000 mL (0 mL IntraVENous Stopped 01/21/252126) phenazopyridine (Pyridium) tablet 200 mg (200 mg Oral Given 01/21/251828) trospium (Sanctura) tablet 20 mg (20 mg Oral Given 01/21/251828) iopamidol (Isovue-370) 76 % injection 75 mL (75 mL IntraVENous Given 01/21/251943) All diagnostic, treatment, and disposition decisions were made by myself in conjunction with the [facility]. For all further details of the patient's emergency department visit, please see their documentation. Vani Muñiz MD (electronically signed) Emergency Medicine Provider (Comment: Please note this report has been produced using speech recognition software and may contain errors related to that system including errors in grammar, punctuation, and spelling, as well as words and phrases that may be inappropriate. If there are any questions or concerns please feel free to contact the dictating provider for clarification.) Vani Muñiz MD 01/21/252257 T [facility] 01-21-2025 Physician Emergency department Note Emergency Department Encounter Location: [facility] OBSERVATION UNIT 5E Patient: Stephane Toribio : 1960 Date of evaluation: 01/21/2025 ED Provider: Verena Hidalgo PA-C Time received sign-out: [id number] Stephane Toribio was checked out to me by Jade Woo CNP. Please see his/her initial documentation for details of the patient's initial ED presentation, physical exam and completed studies. I did perform a substantive portion of the visit including all aspects of the Medical Decision Making. In brief, Stephane Toribio is a 64 y.o. male that presented to the emergency department for evaluation with concerns for Mendoza catheter malfunction. Patient has been seen multiple times recently with concerns for Mendoza catheter malfunction. Known to Dr. Maradiaga. Recently had abnormal PSA labs and imaging. Is in the process of getting scheduled for robotic prostatectomy. Presents back to the emergency department because he is having significant bladder spasms, and feels his Mendoza catheter is not draining appropriately. I have reviewed and interpreted all of the currently available lab results and diagnostics from this visit: Results for orders placed or performed during the hospital encounter of 01/21/25 ECG 12 lead (Now) Collection Time: 01/21/25 5:55 PM Result Value Ref Range Heart Rate 87 bpm QRSD Interval 92 ms QT Interval 349 ms QTC Interval 420 ms P [place] 60 degrees QRS [place] 45 degrees T Wave [place] 62 degrees MI Interval 154 ms Basic metabolic panel Collection Time: 01/21/25 6:23 PM Result Value Ref Range SODIUM 139 136 - 145 mmol/L POTASSIUM 4.1 3.5 - 5.1 mmol/L CHLORIDE 107 98 - 107 mmol/L CARBON DIOXIDE 22 (L) 23 - 31 mmol/L UREA NITROGEN 16 9 - 23 mg/dL CREATININE 1.32 (H) 0.72 - 1.25 mg/dL GLUCOSE 121 (H) 82 - 115 mg/dL CALCIUM 9.5 8.8 - 10.0 mg/dL ANION GAP 10 3 - 13 mmol/L eGFR 59.9 (L) >60.0 mL/min/1.73m*2 CBC auto differential Collection Time: 01/21/25 6:23 PM Result Value Ref Range Auto WBC 11.4 (H) 3.6 - 10.7 10*3/uL RBC 4.43 4.40 - 5.90 10*6/uL Hemoglobin 13.0 13.0 - 18.0 g/dL Hematocrit 38.7 (L) 40.0 - 52.0 % MCV 87.4 77.0 - 99.0 fL MCH 29.3 26.0 - 34.0 pg MCHC 33.6 30.5 - 36.0 % RDW 12.0 11.5 - 15.0 % Platelets 255 140 - 440 10*3/uL MPV 9.3 9.0 - 12.7 fL nRBC 0.0 0.0 - 2.0 /100 WBCs Neutrophils Relative 76.6 38.0 - 82.0 % Lymphocytes Relative 13.2 (L) 15.0 - 45.0 % Monocytes Relative 8.3 5.0 - 13.0 % Eosinophils Relative 1.1 0.0 - 6.0 % Basophils Relative 0.3 0.0 - 2.0 % Immature Grans % 0.5 0.0 - 2.0 % Neutrophils Absolute 8.7 (H) 1.8 - 7.5 10*3/uL Lymphocytes Absolute 1.5 1.0 - 4.3 10*3/uL Monocytes Absolute 0.9 0.0 - 0.9 10*3/uL Eosinophils Absolute 0.1 0.0 - 0.5 10*3/uL Basophils Absolute 0.0 0.0 - 0.2 10*3/uL Immature Grans Absolute 0.1 (H) <0.1 10*3/uL Serial Troponin, High Sensitivity Collection Time: 01/21/25 6:23 PM Result Value Ref Range Troponin HS Serial Baseline 4 <=35 ng/L TSH Collection Time: 01/21/25 6:23 PM Result Value Ref Range THYROID STIMULATING HORMONE 0.94 0.35 - 4.94 uIU/mL Magnesium Collection Time: 01/21/25 6:23 PM Result Value Ref Range MAGNESIUM 1.9 1.6 - 2.6 mg/dL Complete Urinalysis with reflex to Culture Collection Time: 01/21/25 9:24 PM Result Value Ref Range Color, Urine Dark Yellow (A) Lt. Yellow Clarity, Urine Clear Clear pH, Urine 7.0 5.0 - 8.0 pH Leukocytes, Urine 250 (A) Negative Joe/uL Nitrite, Urine Negative Negative Protein, Urine Negative Negative mg/dL Glucose, Urine Normal Normal (<70) mg/dL Bilirubin, Urine Negative Negative mg/dL Ketones, Urine Negative Negative mg/dL Urobilinogen, Urine Normal Normal (0-1) mg/dL Blood, Urine 0.2 (A) Negative mg/dL RBC, Urine 26-50 (A) 0 - 2 /HPF WBC, Urine 6-10 (A) 0 - 5 /HPF Squamous Epithelial, Urine Negative 3 - 5 /HPF Bacteria, Urine Few (A) Negative /HPF Mucus, Urine Few Negative /LPF SPECIFIC GRAVITY OF URINE (NUMERIC) 1.023 1.005 - 1.030 Troponin, High Sensitivity, Serial, Second Test Collection Time: 01/21/25 9:26 PM Result Value Ref Range 2h Troponin HS (Serial 2nd Troponin) 4 <=35 ng/L CT abdomen pelvis w contrast Final Result 1. Prostatomegaly which protrudes into the posterior bladder wall (correlate with MRI pelvis 01/10/2025). A Mendoza catheter is present in a decompressed bladder. 2. Colonic diverticulosis. 3. Additional findings, as above. Report Dictated on Electronically Signed By: Cheyenne Mcnamara MD Electronically Signed Date/Time: 01/21/2025 8:03 PM EDT XR chest 1 view Final Result FINDINGS AND IMPRESSION: SUPPORT DEVICES: None OSSEOUS STRUCTURES: Unremarkable. HEART AND MEDIASTINUM: The cardiomediastinal silhouette appears unchanged from the prior exam. LUNGS AND PLEURA: The lungs are clear. No sizable pleural effusion. Report Dictated on Electronically Signed By: Jani Estrada MD Electronically Signed Date/Time: 01/21/2025 6:57 PM EDT Final ED Course and MDM: In brief, Stephane Toribio is a 64 y.o. male whose care was signed out to me by the outgoing provider. In brief, he presented to the emergency department for reevaluation of Mendoza catheter with concerns for malfunction, with ongoing bladder spasms. Signed out to me by outgoing provider with ultimate disposition pending results of his CT imaging, neurology recommendations. CT: IMPRESSION: 1. Prostatomegaly which protrudes into the posterior bladder wall (correlate with MRI pelvis 01/10/2025). A Mendoza catheter is present in a decompressed bladder. 2. Colonic diverticulosis. 3. Additional findings, as above. UA: Dark yellow with 250 leukocyte esterase's, RBCs, WBCs, and bacteria concerning for infection. Started on ceftriaxone. Discussed case with urology resident. Please see consult note for full detail. Concern that patient is having ongoing symptoms and has been treated with multiple different antispasmodics. Concerned that patient's pain is not well-controlled, do believe he would benefit from CDU admission for pain control overnight and repeat evaluation by urology team in the morning. Discussed this with the patient he was agreeable with plans for admission. Paged US ACS and spoke with Dr. Rodríguez who accepted patient for admission. Admission orders placed. Patient main stable during remainder of ER course and was transferred to floor in stable condition with stable vital signs Medications cefTRIAXone (Rocephin) 1,000 mg in sodium chloride 0.9 % 50 mL IVPB Mini-Bag Plus (0 mg IntraVENous Stopped 01/21/252325) aspirin EC tablet 81 mg (81 mg Oral Given 01/22/25 0841) cholecalciferol (Vitamin D-3) tablet 5,000 Units (5,000 Units Oral Given 01/22/25 08) lisinopril tablet 20 mg (20 mg Oral Given 01/22/25 0841) melatonin tablet 5 mg (5 mg Oral Given 01/22/25 0109) tamsulosin (Flomax) 24 hr capsule 0.8 mg (0.8 mg Oral Given 01/22/25 0842) naproxen (Naprosyn) tablet 500 mg (has no administration in time range) finasteride (Proscar) tablet 5 mg (5 mg Oral Given 01/22/25 0843) pantoprazole (ProtoNix) EC tablet 40 mg (40 mg Oral Given 01/22/25 0437) therapeutic multivitamin-minerals (Theragran-M) tablet (1 tablet Oral Given 01/22/25 0841) trospium (Sanctura) tablet 20 mg (20 mg Oral Given 01/22/25 1635) acetaminophen (Tylenol) tablet 650 mg (650 mg Oral Given 01/22/25 0120) Or acetaminophen (Tylenol) suppository 650 mg ( Rectal See Alternative 01/22/25 0120) ondansetron ODT (Zofran-ODT) disintegrating tablet 4 mg (has no administration in time range) Or ondansetron (Zofran) injection 4 mg (has no administration in time range) polyethylene glycol (PEG) 3350 (Miralax) packet 17 g (has no administration in time range) influenza vaccine A&B surf ant adjuvanted (Fluad) HIGH-DOSE injection 0.5 mL (0.5 mL IntraMUSCular Not Given 01/21/252321) enoxaparin (Lovenox) syringe 40 mg (40 mg SubCUTAneous Given 01/21/252323) HYDROcodone-acetaminophen (Monette) 5-325 MG per tablet 1 tablet (1 tablet Oral Given 01/22/251857) naloxone (Narcan) injection 0.4 mg (has no administration in time range) morphine injection 2 mg (2 mg IntraVENous Given 01/21/251824) ondansetron (Zofran) injection 4 mg (4 mg IntraVENous Given 01/21/251824) sodium chloride 0.9 % bolus 1,000 mL (0 mL IntraVENous Stopped 01/21/252126) phenazopyridine (Pyridium) tablet 200 mg (200 mg Oral Given 01/21/251828) trospium (Sanctura) tablet 20 mg (20 mg Oral Given 01/21/251828) iopamidol (Isovue-370) 76 % injection 75 mL (75 mL IntraVENous Given 01/21/251943) Final Impression 1. Bladder spasm 2. Lower abdominal pain 3. Urinary tract infection associated with indwelling urethral catheter, initial encounter Verena Hidalgo PA-C [employer] Verena Hidalgo PA-C 01/22/252007 Cosigned by Vani Muñiz MD at 01/23/2025 3:36 PM EDT [facility] 01-20-2025 Telephone encounter Note Name of Caller: Stephane Contact Reason for Appointment: Pt called to request an appointment with Dr Moseley for surgery. Please provide information for pt to schedule with Dr Moseley. Office Name: Urology [facility] 01-20-2025 History of Presen t illness Narrative Images from the original note were not included. Reji Maradiaga MD 01/20/2025 at 11:46 AM OFFICE FOLLOW-UP VISIT PATIENT NAME: Stephane Toribio DATE OF : 1960 TODAY'S DATE: 01/20/2025 CHIEF COMPLAINT: Chief Complaint Patient presents with Other Follow up, ER Has mendoza catheter, some blood clots Bladders spasms with great discomfort Needs refills of antispasm medication Subjective: Mr. Toribio is a 64 y.o. male who presents to the office for follow up of retention. The patient has a markedly enlarged prostate and was having LUTS. He is on finasteride and tamsulosin, but has gone now into urinary retention. He was seen in [facility] ER on 01/17/2025 for catheter evaluation. He underwent cystoscopy and fulguration of prostatic bleeders by Dr. Hitesh Nava at [facility] [address] in [place] on 01/15/25 Review of Systems Past Medical History: Medical History[1] Past Surgical History: Surgical History[2] Allergies: Dust mite extract and Molds & smuts Social History: Issues identified in the H&P were noted Family History: Family History[3] Medications Prior to Admission medications Medication Sig Start Date End Date Taking? Authorizing Provider cephalexin (Keflex) 500 MG capsule 500 mg. 01/15/25 Yes Historical Provider, acetaminophen (Tylenol) 325 MG tablet Take 650 mg by mouth. Historical Provider, aspirin 81 MG EC tablet Take 81 mg by mouth in the morning. Historical Provider, b complex vitamins capsule Take 1 capsule by mouth. Historical Provider, Bacillus Coagulans-Inulin (Probiotic) 1-250 BILLION-MG capsule Take by mouth. Historical Provider, cholecalciferol (Vitamin D-3) 50 MCG (2000 UT) capsule Take 5,000 Units by mouth. Historical Provider, esomeprazole (NexIUM) [address] capsule Take 40 mg by mouth. Historical Provider, finasteride (Proscar) 5 MG tablet Take 1 tablet (5 mg) by mouth daily. 01/02/25 04/02/25 Reji Maradiaga MD HYDROcodone-acetaminophen (Monette) 5-325 MG tablet Take 1 tablet by mouth every 6 hours as needed for severe pain (7-10) for up to 3 days. 01/17/25 01/20/25 Verena Hidalgo PA-C lisinopril 20 MG tablet Take 20 mg by mouth. Historical Provider, loratadine (Claritin) 10 MG tablet Take 10 mg by mouth daily. Historical Provider, melatonin 5 MG tablet Take 5 mg by mouth. Historical Provider, Misc Natural Products (Prostate Health) capsule Take by mouth. Historical Provider, montelukast (Singulair) 10 MG tablet Take 10 mg by mouth Nightly. Historical Provider, Multiple Vitamin (Multi-Vitamin) tablet Take 1 tablet by mouth in the morning. Historical Provider, naproxen (Naprosyn) 500 MG tablet Take 500 mg by mouth every 12 hours as needed. With food or milk Historical ProviderMD omega-3 (Fish Oil) 1200 MG capsule Take 1,200 mg by mouth. Historical Provider, omega-3 acid ethyl esters (Lovaza) 1 g capsule 2 tablets Every 24 hours. Historical Provider, phenazopyridine (Pyridium) 200 MG tablet Take 1 tablet (200 mg) by mouth 3 times daily for 2 days. 01/17/25 01/19/25 Verena Hidalgo PA-C Probiotic Product (Probiotic Blend) capsule Every 24 hours. Historical Provider, sildenafil (Viagra) 100 MG tablet take 1/2 to 1 tablet by mouth once daily if needed 04/17/22 Historical Provider, solifenacin (VESIcare) 10 MG tablet Take 1 tablet (10 mg) by mouth daily. Swallow tablet whole; do not crush, chew, or split. 01/20/25 02/19/25 Reji Maradiaga MD solifenacin (VESIcare) 5 MG tablet Take 1 tablet (5 mg) by mouth daily. Swallow tablet whole; do not crush, chew, or split. 01/17/25 07/16/25 Katty Vee, ORGANISATIONAL PSYCHOLOGIST - STARCH TREATING ASSISTANT tamsulosin (Flomax) 0.4 MG 24 hr capsule 2 capsules Every 24 hours. 02/13/24 Historical ProviderMD tamsulosin (Flomax) 0.4 MG 24 hr capsule Take 1 capsule (0.4 mg) by mouth 2 times daily. Take 30 minutes after a meal. 01/02/25 04/02/25 Reji Maradiaga MD Vitals: BP 130/66 (BP Location: Right arm, Patient Position: Sitting, BP Cuff Size: Adult long) Pulse 76 Physical Exam Physical Exam Constitutional: Appearance: Normal appearance. HENT: Head: Normocephalic and atraumatic. Eyes: Extraocular Movements: Extraocular movements intact. Pulmonary: Effort: Pulmonary effort is normal. Genitourinary: Comments: 24 Khmer three-way Mendoza in place with third port capped Musculoskeletal: General: Normal range of motion. Cervical back: Normal range of motion. Neurological: General: No focal deficit present. Mental Status: He is alert and oriented to person, place, and time. Psychiatric: Mood and Affect: Mood normal. Behavior: Behavior normal. Thought Content: Thought content normal. Judgment: Judgment normal. LABS: 01/02/2025: PSA: 9.530 04/18/2024: PSA: 10.300 12/18/2023: PSA: 5.480 10/09/2023: PSA: 8.670 ([place]) 04/20/2023: PSA: 7.200 w/ 31% free ([place]) 11/28/2022: PSA: 7.440 10/31/2022: PSA: 6.670 05/02/2022: PSA: 4.588 10/24/2021: PSA: 4.256 09/20/2019: PSA: 3.523 PSA density 0.05 Lab Results Component Value Date PSA 4.588 (H) 05/02/2022 PSA 4.256 (A) 10/24/2021 PSA 3.523 09/20/2019 Lab Results Component Value Date TESTOSTERONE 391 05/13/2022 Lab Results Component Value Date WBC 8.4 01/17/2025 HGB 12.8 (L) 01/17/2025 HCT 38.0 (L) 01/17/2025 MCV 88.2 01/17/2025 PLT 170 01/17/2025 Lab Results Component Value Date GLUCOSE 111 01/17/2025 CALCIUM 9.3 01/17/2025 NA 139 01/17/2025 K 4.3 01/17/2025 CO2 23 01/17/2025 CL 106 01/17/2025 BUN 17 01/17/2025 CREATININE 1.28 (H) 01/17/2025 Radiology: 01/10/2025: MRI. 197 ml. Motion artifact. Artifact of unclear etiology also somewhat limits DWI and ADC images. 1.1 cm PI RADS-4 nodule anterior left transition zone, mid gland. 0.8 cm PI RADS-3 nodule anterior left transition zone, apex. 0.6 cm PI RADS three nodule anterior right transition zone, base of gland.1.1 cm PI RADS three nodule anterior right transition zone, base of gland. Impression/Plan Stephane was seen today for other. Diagnoses and all orders for this visit: Urinary retention (Primary) Benign prostatic hyperplasia with nocturia Bladder spasms Elevated PSA Follow up in about 1 week (around 01/27/2025). I irrigated the catheter and the catheter is patent. When he gets 60 mL of saline in his bladder he develops a significant spasm and a great deal of discomfort. The irrigant squirts out around the catheter I explained that he is getting excessive amount of spasms due to the markedly enlarged prostate. He has the prescription for the solifenacin but I will increase the dosage to 10 mg daily. He will try that for several days. If this does not control the spasms he can increase this even further up to 20 mg daily. Warned about the possibility of dry mouth, constipation, etc. The abnormal regions on MRI would be removed at the time of robotic suprapubic prostatectomy. His PSA density is extremely low I think referral onto robotic surgeons for robotic SPP is the next step in management here Reji Maradiaga MD 01/20/25 11:46 AM Brother: Dr. Froylan Toribio. Nephew: Dr. Aden Toribio (ortho). 01/02/2025: PVR 48 ml. Worse LUTS. Add finasteride. PSA ordered 01/01/2024: PVR 13 ml. Nocturia x 1-2, variable stream. Refilled tamsulosin BID. PSA is decreasing. 06/15/2023: OV [facility]ON: PVR 124 ml. Increase tamsulosin to BID 12/19/2022: TRUS/Bx ([place], 177 ml): benign [1] Past Medical History: Diagnosis Date Benign prostatic hyperplasia 3 or 4 years ago Elevated PSA Late 2020 Erectile dysfunction Summer 2020 H/O exercise stress test Hypertension MACY on CPAP Osteomyelitis (HCC) RIGHT RING FINGER AND SCHEDULED FOR THE SURGERY ON 03/05/[address] [facility] [2] Past Surgical History: Procedure Laterality Date CHOLECYSTECTOMY [facility] COLONOSCOPY COLONOSCOPY FINGER AMPUTATION Right 03/05/2020 right small finger -dr jackson FINGER SURGERY Left [facility] FINGER SURGERY Left 02/20/2023 Mucous cyst excision long finger with with simple primary closure. arthrotomy DIP joint long finger with excision of osteophytes. Dr Jackson OTHER SURGICAL HISTORY EXCISION OF LIPOMA FROM THE BACK AT [facility] LONG TIME AGO SCAPHOID FRACTURE SURGERY Right [facility] WISDOM TOOTH EXTRACTION [3] Family History Problem Relation Name Age of Onset Arthritis Mother Rachel Toribio Arthritis Father Franki Toribio Hearing loss Father Franki Toribio documented in this encounter [facility] 01-17-2025 Hospital Discharg e instructions Verena Hidalgo PA-C - 01/17/2025 4:49 PM EDT Keep your appointment for Thursday with urology. Take your medications as prescribed. Return to the emergency department should anything change or worsen. documented in this encounter [facility] 01-17-2025 Consult note Formatting of th is note is different from the original. Urology Inpatient Consultation 01/17/2025 HISTORY OF PRESENT ILLNESS: The patient is a 64 y.o.male who presented to [facility] ED. Past medical history as listed below. Patient is known to our service Ashwini. Last seen 01/02 for incomplete bladder emptying and worsening LUTS. Per ED, patient was just out of town and had episode of urinary retention that required catheter placement, bladder irrigation and some form of embolization. Urology is consulted this admission for Gross hematuria and concern for catheter clotting off. Today, patient reports catheter spasms. Mendoza irrigated easily with return of clear yellow urine. Patient bladder scanned for 0cc. Patient and very frustrated with catheter. They have a urology appointment this Thursday. Passed a large clot today and sometimes when he sits up the mendoza does not drain well. When he lays down it does drain well. Urologic history: - Elevated PSA, P Bx 2022: Benign - Seeing Dr Maradiaga for worsening LUTS Hospital/ED workup: Cr 1.28 (ABL ); WBC 8.4; HGB 12.8; No UA. bASA. 22Fr mendoza. PAST MEDICAL HISTORY: Medical History[1] PAST SURGICAL HISTORY: Surgical History[2] ALLERGIES: Allergies[3] CURRENT MEDICATIONS: Current Medications[4] FAMILY HISTORY: Family History[5] Social History: Social History Socioeconomic History Marital status: Spouse name: Not on file Number of children: Not on file Years of education: Not on file Highest education level: Not on file Occupational History Not on file Tobacco Use Smoking status: Former Current packs/day: 0.00 Types: Cigarettes Quit date: 04/13/1980 Years since quittin.7 Smokeless tobacco: Never Vaping Use Vaping status: Never Used Substance and Sexual Activity Alcohol use: Yes Alcohol/week: 7.0 standard drinks of alcohol Types: 5 Cans of beer per week Drug use: Never Sexual activity: Yes Partners: Female control/protection: Other Comment: Histarectomy Other Topics Concern Not on file Social History Narrative Not on file Social Drivers of Health Financial Resource Strain: Not on file Food Insecurity: Not on file Transportation Needs: Not on file Physical Activity: Not on file Stress: Not on file Social Connections: Not on file Intimate Partner Violence: Not on file Housing Stability: Not on file ROS: See HPI PHYSICAL EXAM: VITALS: BP 128/71 Pulse 66 Temp 36.3 C (97.4 F) (Temporal) Resp 16 SpO2 98% General: Alert, in no acute distress Respiratory: no respiratory distress, normal effort Abdomen: soft, non distended, non tender : mendoza draining clear, yellow urine DATA: LABS: BMP: Lab Results Component Value Date GLUCOSE 111 01/17/2025 CALCIUM 9.3 01/17/2025 NA 139 01/17/2025 K 4.3 01/17/2025 CO2 23 01/17/2025 CL 106 01/17/2025 BUN 17 01/17/2025 CREATININE 1.28 (H) 01/17/2025 CBC: Lab Results Component Value Date WBC 8.4 01/17/2025 HGB 12.8 (L) 01/17/2025 HCT 38.0 (L) 01/17/2025 MCV 88.2 01/17/2025 PLT 170 01/17/2025 Urinalysis: No results found for: UA Urine Culture: No components found for: UCX RADIOLOGY: Reviewed. IMPRESSION & PLAN: 64 y.o. male with catheter spasms, enlarged prostate - No acute intervention - recommend bladder spasms medications for homegoing - mendoza draining clear yellow urine and it is in position - to discuss Mri prostate as OP, given ongoing issues with retention may be candidate for suprapubic prostatectomy given large gland size. PSA prior to intervention as last value was 10 Jackie Ruiz MD PGY-3 Urology [1] Past Medical History: Diagnosis Date Benign prostatic hyperplasia 3 or 4 years ago Elevated PSA Late 2020 Erectile dysfunction Summer 2020 H/O exercise stress test Hypertension MACY on CPAP Osteomyelitis (HCC) RIGHT RING FINGER AND SCHEDULED FOR THE SURGERY ON 03/05/[address] [facility] [2] Past Surgical History: Procedure Laterality Date CHOLECYSTECTOMY [facility] COLONOSCOPY COLONOSCOPY FINGER AMPUTATION Right 03/05/2020 right small finger -dr jackson FINGER SURGERY Left [facility] FINGER SURGERY Left 02/20/2023 Mucous cyst excision long finger with with simple primary closure. arthrotomy DIP joint long finger with excision of osteophytes. Dr Jackson OTHER SURGICAL HISTORY EXCISION OF LIPOMA FROM THE BACK AT [facility] LONG TIME AGO SCAPHOID FRACTURE SURGERY Right [facility] WISDOM TOOTH EXTRACTION [3] Allergies Allergen Reactions Dust Mite Extract Unknown [4] No current facility-administered medications for this encounter. Current Outpatient Medications: acetaminophen (Tylenol) 325 MG tablet, Take 650 mg by mouth., Disp: , Rfl: aspirin 81 MG EC tablet, Take 81 mg by mouth in the morning., Disp: , Rfl: b complex vitamins capsule, Take 1 capsule by mouth., Disp: , Rfl: Bacillus Coagulans-Inulin (Probiotic) 1-250 BILLION-MG capsule, Take by mouth., Disp: , Rfl: cholecalciferol (Vitamin D-3) 50 MCG (2000 UT) capsule, Take 5,000 Units by mouth., Disp: , Rfl: esomeprazole (NexIUM) [address] capsule, Take 40 mg by mouth., Disp: , Rfl: finasteride (Proscar) 5 MG tablet, Take 1 tablet (5 mg) by mouth daily., Disp: 90 tablet, Rfl: 3 lisinopril 20 MG tablet, Take 20 mg by mouth., Disp: , Rfl: loratadine (Claritin) 10 MG tablet, Take 10 mg by mouth daily., Disp: , Rfl: melatonin 5 MG tablet, Take 5 mg by mouth., Disp: , Rfl: Misc Natural Products (Prostate Health) capsule, Take by mouth., Disp: , Rfl: montelukast (Singulair) 10 MG tablet, Take 10 mg by mouth Nightly., Disp: , Rfl: Multiple Vitamin (Multi-Vitamin) tablet, Take 1 tablet by mouth in the morning., Disp: , Rfl: naproxen (Naprosyn) 500 MG tablet, Take 500 mg by mouth every 12 hours as needed. With food or milk, Disp: , Rfl: omega-3 (Fish Oil) 1200 MG capsule, Take 1,200 mg by mouth., Disp: , Rfl: omega-3 acid ethyl esters (Lovaza) 1 g capsule, 2 tablets Every 24 hours., Disp: , Rfl: Probiotic Product (Probiotic Blend) capsule, Every 24 hours., Disp: , Rfl: sildenafil (Viagra) 100 MG tablet, take 1/2 to 1 tablet by mouth once daily if needed, Disp: , Rfl: solifenacin (VESIcare) 5 MG tablet, Take 1 tablet (5 mg) by mouth daily. Swallow tablet whole; do not crush, chew, or split., Disp: 30 tablet, Rfl: 5 tamsulosin (Flomax) 0.4 MG 24 hr capsule, 2 capsules Every 24 hours., Disp: , Rfl: tamsulosin (Flomax) 0.4 MG 24 hr capsule, Take 1 capsule (0.4 mg) by mouth 2 times daily. Take 30 minutes after a meal., Disp: 180 capsule, Rfl: 3 [5] Family History Problem Relation Name Age of Onset Arthritis Mother Rachel Toribio Arthritis Father Franki Toribio Hearing loss Father Franki Toribio Cosigned by Flor Barfield DO at 01/17/2025 6:09 PM EDT Associated attestation - Flor Barfield DO - 01/17/2025 6:09 PM EDT Images from the original note were not included. Attending Physician's Attestation Date of assessment: 01/17/25 I have reviewed and discussed the patient and agree with the assessment and plan. Catheter draining yellow urine Having bladder spasms, known large prostate Plan outpatient follow up as previously discussed Ok for dc home Please do not hesitate to reach out to the urology team with additional questions or concerns On-Call Finder --> [facility] Urology Page on-call resident(s) first Flor Barfield DO [facility] Urology [facility] Work Phone: 01-17-2025 Consult note Formatting of th is note is different from the original. Urology Inpatient Consultation 01/17/2025 HISTORY OF PRESENT ILLNESS: The patient is a 64 y.o.male who presented to [facility] for [facility] ED. Past medical history as listed below. Patient is known to our service Ashwini. Last seen 01/02 for incomplete bladder emptying and worsening LUTS. Per ED, patient was just out of town and had episode of urinary retention that required catheter placement, bladder irrigation and some form of embolization. Urology is consulted this admission for Gross hematuria and concern for catheter clotting off. Today, patient reports catheter spasms. Mendoza irrigated easily with return of clear yellow urine. Patient bladder scanned for 0cc. Patient and very frustrated with catheter. They have a urology appointment this Thursday. Passed a large clot today and sometimes when he sits up the mendoza does not drain well. When he lays down it does drain well. Urologic history: - Elevated PSA, P Bx 2022: Benign - Seeing Dr Maradiaga for worsening LUTS Hospital/ED workup: Cr 1.28 (ABL ); WBC 8.4; HGB 12.8; No UA. bASA. 22Fr mendoza. PAST MEDICAL HISTORY: Medical History[1] PAST SURGICAL HISTORY: Surgical History[2] ALLERGIES: Allergies[3] CURRENT MEDICATIONS: Current Medications[4] FAMILY HISTORY: Family History[5] Social History: Social History Socioeconomic History Marital status: Spouse name: Not on file Number of children: Not on file Years of education: Not on file Highest education level: Not on file Occupational History Not on file Tobacco Use Smoking status: Former Current packs/day: 0.00 Types: Cigarettes Quit date: 04/13/1980 Years since quittin.7 Smokeless tobacco: Never Vaping Use Vaping status: Never Used Substance and Sexual Activity Alcohol use: Yes Alcohol/week: 7.0 standard drinks of alcohol Types: 5 Cans of beer per week Drug use: Never Sexual activity: Yes Partners: Female control/protection: Other Comment: Histarectomy Other Topics Concern Not on file Social History Narrative Not on file Social Drivers of Health Financial Resource Strain: Not on file Food Insecurity: Not on file Transportation Needs: Not on file Physical Activity: Not on file Stress: Not on file Social Connections: Not on file Intimate Partner Violence: Not on file Housing Stability: Not on file ROS: See HPI PHYSICAL EXAM: VITALS: BP 128/71 Pulse 66 Temp 36.3 C (97.4 F) (Temporal) Resp 16 SpO2 98% General: Alert, in no acute distress Respiratory: no respiratory distress, normal effort Abdomen: soft, non distended, non tender : mendoza draining clear, yellow urine DATA: LABS: BMP: Lab Results Component Value Date GLUCOSE 111 01/17/2025 CALCIUM 9.3 01/17/2025 NA 139 01/17/2025 K 4.3 01/17/2025 CO2 23 01/17/2025 CL 106 01/17/2025 BUN 17 01/17/2025 CREATININE 1.28 (H) 01/17/2025 CBC: Lab Results Component Value Date WBC 8.4 01/17/2025 HGB 12.8 (L) 01/17/2025 HCT 38.0 (L) 01/17/2025 MCV 88.2 01/17/2025 PLT 170 01/17/2025 Urinalysis: No results found for: UA Urine Culture: No components found for: UCX RADIOLOGY: Reviewed. IMPRESSION & PLAN: 64 y.o. male with catheter spasms, enlarged prostate - No acute intervention - recommend bladder spasms medications for homegoing - mendoza draining clear yellow urine and it is in position - to discuss Mri prostate as OP, given ongoing issues with retention may be candidate for suprapubic prostatectomy given large gland size. PSA prior to intervention as last value was 10 Jackie Ruiz MD PGY-3 Urology [1] Past Medical History: Diagnosis Date Benign prostatic hyperplasia 3 or 4 years ago Elevated PSA Late 2020 Erectile dysfunction Summer 2020 H/O exercise stress test Hypertension MACY on CPAP Osteomyelitis (HCC) RIGHT RING FINGER AND SCHEDULED FOR THE SURGERY [facility] 03[facility] [2] Past Surgical History: Procedure Laterality Date CHOLECYSTECTOMY [facility] COLONOSCOPY COLONOSCOPY FINGER AMPUTATION Right 03/05/2020 right small finger -dr jackson FINGER SURGERY Left [facility] FINGER SURGERY Left 02/20/2023 Mucous cyst excision long finger with with simple primary closure. arthrotomy DIP joint long finger with excision of osteophytes. Dr Jackson OTHER SURGICAL HISTORY EXCISION OF LIPOMA FROM THE BACK AT [facility] LONG TIME AGO SCAPHOID FRACTURE SURGERY Right [facility] WISDOM TOOTH EXTRACTION [3] Allergies Allergen Reactions Dust Mite Extract Unknown [4] No current facility-administered medications for this encounter. Current Outpatient Medications: acetaminophen (Tylenol) 325 MG tablet, Take 650 mg by mouth., Disp: , Rfl: aspirin 81 MG EC tablet, Take 81 mg by mouth in the morning., Disp: , Rfl: b complex vitamins capsule, Take 1 capsule by mouth., Disp: , Rfl: Bacillus Coagulans-Inulin (Probiotic) 1-250 BILLION-MG capsule, Take by mouth., Disp: , Rfl: cholecalciferol (Vitamin D-3) 50 MCG (2000 UT) capsule, Take 5,000 Units by mouth., Disp: , Rfl: esomeprazole (NexIUM) [address] capsule, Take 40 mg by mouth., Disp: , Rfl: finasteride (Proscar) 5 MG tablet, Take 1 tablet (5 mg) by mouth daily., Disp: 90 tablet, Rfl: 3 lisinopril 20 MG tablet, Take 20 mg by mouth., Disp: , Rfl: loratadine (Claritin) 10 MG tablet, Take 10 mg by mouth daily., Disp: , Rfl: melatonin 5 MG tablet, Take 5 mg by mouth., Disp: , Rfl: Misc Natural Products (Prostate Health) capsule, Take by mouth., Disp: , Rfl: montelukast (Singulair) 10 MG tablet, Take 10 mg by mouth Nightly., Disp: , Rfl: Multiple Vitamin (Multi-Vitamin) tablet, Take 1 tablet by mouth in the morning., Disp: , Rfl: naproxen (Naprosyn) 500 MG tablet, Take 500 mg by mouth every 12 hours as needed. With food or milk, Disp: , Rfl: omega-3 (Fish Oil) 1200 MG capsule, Take 1,200 mg by mouth., Disp: , Rfl: omega-3 acid ethyl esters (Lovaza) 1 g capsule, 2 tablets Every 24 hours., Disp: , Rfl: Probiotic Product (Probiotic Blend) capsule, Every 24 hours., Disp: , Rfl: sildenafil (Viagra) 100 MG tablet, take 1/2 to 1 tablet by mouth once daily if needed, Disp: , Rfl: solifenacin (VESIcare) 5 MG tablet, Take 1 tablet (5 mg) by mouth daily. Swallow tablet whole; do not crush, chew, or split., Disp: 30 tablet, Rfl: 5 tamsulosin (Flomax) 0.4 MG 24 hr capsule, 2 capsules Every 24 hours., Disp: , Rfl: tamsulosin (Flomax) 0.4 MG 24 hr capsule, Take 1 capsule (0.4 mg) by mouth 2 times daily. Take 30 minutes after a meal., Disp: 180 capsule, Rfl: 3 [5] Family History Problem Relation Name Age of Onset Arthritis Mother Rachel Toribio Arthritis Father Franki Toribio Hearing loss Father Franki Toribio Cosigned by Flor Barfield DO at 01/17/2025 6:09 PM EDT Associated attestation - Flor Barfield DO - 01/17/2025 6:09 PM EDT Images from the original note were not included. Attending Physician's Attestation Date of assessment: 01/17/25 I have reviewed and discussed the patient and agree with the assessment and plan. Catheter draining yellow urine Having bladder spasms, known large prostate Plan outpatient follow up as previously discussed Ok for dc home Please do not hesitate to reach out to the urology team with additional questions or concerns On-Call Finder --> [facility] Urology Page on-call resident(s) first Flor Barfield DO [facility] Urology documented in this encounter [facility] 01-17-2025 Emergency department Note Emptied mendoza for 950ml. [facility] 01-17-2025 Emergency department Note Emptied mendoza for 950ml. Emergency Department Encounter [facility] EMERGENCY DEPT Patient: Stephane Toribio : 1960 Date of Evaluation: 01/17/2025 ED Provider: Byron Yin MD COMBINED TRIAGE NOTE & RAMON SUPERVISORY NOTE WITH SHARED ATTESTATION I independently examined and evaluated Stephane Toribio. I independently saw & evaluated the patient as the Clinician in Triage and performed a history and physical exam, established acuity, and ordered appropriate tests to develop a plan of care. Patient was subsequently seen by an RAMON and I assumed a shared supervisory role. I personally saw the patient and performed a substantive portion of the visit including all aspects of the Medical Decision Making. I managed the patient in a supervisory role and I personally saw the patient and made/approved the management plan and take responsibility for the patient management. Brief HPI: In brief, Stephane Toribio is a 64 y.o. male that presents for evaluation of urinary catheter problems. Patient has an indwelling Mendoza catheter he had what sounds like an a large prostate had an MRI that was suspicious for malignancy but not biopsied yet. He was out of town this past weekend and had significant bleeding in the catheter requiring hospitalization and cauterization at that time and he was discharged returning here. There has been discussion based on whether this is actually malignancy or not whether he will require suprapubic prostatectomy. He states he is having bladder spasms with large amounts of urine that will come out into the Mendoza catheter bag sometimes there is blood clot and at other times it is clear and it is coming out around the catheter itself.. Focused Physical exam: ABDOMEN: Bowel sounds present, soft, nontender, no guarding rebound or rigidity, no palpable masses or aneurysm. Catheter in place dark urine but not bloody clear urine in the tubing no distended bladder Plan/MDM: Will get a bladder scan labs urine and urology consult All diagnostic, treatment, and disposition decisions were made by myself in conjunction with the RAMON. For all further details of the patient's emergency department visit, please see the full medical record and documentation. Comment: Please note this report has been produced using speech recognition software and may contain errors related to that system including errors in grammar, punctuation, and spelling as well as words and phrases that may be inappropriate. If there are any questions or concerns please feel free to contact the dictating provider for clarification Byron Yin MD [employer] Byron Yin MD 01/17/25 [id number] documented in this encounter [facility] 01-17-2025 Physician Emergency department Note Emergency Department Encounter [facility] EMERGENCY DEPT Patient: Stephane Toribio : 1960 Date of Evaluation: 01/17/2025 ED Provider: Byron Yin MD COMBINED TRIAGE NOTE & RAMON SUPERVISORY NOTE WITH SHARED ATTESTATION I independently examined and evaluated Stephane Toribio. I independently saw & evaluated the patient as the Clinician in Triage and performed a history and physical exam, established acuity, and ordered appropriate tests to develop a plan of care. Patient was subsequently seen by an RAMON and I assumed a shared supervisory role. I personally saw the patient and performed a substantive portion of the visit including all aspects of the Medical Decision Making. I managed the patient in a supervisory role and I personally saw the patient and made/approved the management plan and take responsibility for the patient management. Brief HPI: In brief, Stephane Toribio is a 64 y.o. male that presents for evaluation of urinary catheter problems. Patient has an indwelling Mendoza catheter he had what sounds like an a large prostate had an MRI that was suspicious for malignancy but not biopsied yet. He was out of town this past weekend and had significant bleeding in the catheter requiring hospitalization and cauterization at that time and he was discharged returning here. There has been discussion based on whether this is actually malignancy or not whether he will require suprapubic prostatectomy. He states he is having bladder spasms with large amounts of urine that will come out into the Mendoza catheter bag sometimes there is blood clot and at other times it is clear and it is coming out around the catheter itself.. Focused Physical exam: ABDOMEN: Bowel sounds present, soft, nontender, no guarding rebound or rigidity, no palpable masses or aneurysm. Catheter in place dark urine but not bloody clear urine in the tubing no distended bladder Plan/MDM: Will get a bladder scan labs urine and urology consult All diagnostic, treatment, and disposition decisions were made by myself in conjunction with the RAMON. For all further details of the patient's emergency department visit, please see the full medical record and documentation. Comment: Please note this report has been produced using speech recognition software and may contain errors related to that system including errors in grammar, punctuation, and spelling as well as words and phrases that may be inappropriate. If there are any questions or concerns please feel free to contact the dictating provider for clarification Byron Yin MD [facility] Byron Yin MD 01/17/25 [id number] [facility] Phone: 01-17-2025 Telephone encounter Note I sent in some vesicare. I would recommend stopping the levsin while taking the vesicare. I didn't see this medication on his med list. [facility] Phone: 01-17-2025 Miscellaneous Notes I sent in some vesicare. I would recommend stopping the levsin while taking the vesicare. I didn't see this medication on his med list. Pt is taking levsin for spasms and is not really helping . Can the antispasmodic be changed ? documented in this encounter [facility] 01-17-2025 Telephone encounter Note Given this new situation, I think that the best course of action would be for the patient to be seen by Dr. Powell or Dr. Moseley to discuss robotic suprapubic prostatectomy [facility] 01-17-2025 Miscellaneous Notes Given this new situation, I think that the best course of action would be for the patient to be seen by Dr. Powell or Dr. Moseley to discuss robotic suprapubic prostatectomy Name of Caller: Annita Contact Reason for Appointment: Annita stated Stephane was released from the hospital today to return home. Please call to schedule recommended biopsy or to advise. Office Name: Urology Patient spouse called office to advise patient is currently admitted [facility]. Thursday he was unable to urinate. He went to the ED. They released him with a catheter. Thursday he went back to ED due to catheter being clogged with blood clots. Dr. Nava did a procedure to help stop the bleeding from the prostate. Patient remains on continuous bladder irrigation. Patient will possibly released to go home today or transferred to [facility]. Patient spouse will call office later today to advise. Patient would like to move forward with Biopsy as soon as possible. [facility] medical records should be faxed over from their office as well for Dr. Maradiaga. Pt agrees to OV on 02/10/[address] Maradiaga in [place] The patient's prostate is markedly enlarged. There are several areas of irregularity within the prostate. I would like to see the patient in the office so that I can review these images with him and make some plans moving forward documented in this encounter [facility] 01-17-2025 Telephone encounter Note Pt is taking levsin for spasms and is not really helping . Can the antispasmodic be changed ? [facility] 01-16-2025 Telephone encounter Note Name of Caller: Annita Contact Reason for Appointment: Annita stated Stephane was released from the hospital today to return home. Please call to schedule recommended biopsy or to advise. Office Name: Urology [facility] 01-16-2025 Miscellaneous Notes Name of Caller: Annita Contact Reason for Appointment: Annita stated Stephane was released from the hospital today to return home. Please call to schedule recommended biopsy or to advise. Office Name: Urology Patient spouse called office to advise patient is currently admitted [facility]. Thursday he was unable to urinate. He went to the ED. They released him with a catheter. Thursday he went back to ED due to catheter being clogged with blood clots. Dr. Nava did a procedure to help stop the bleeding from the prostate. Patient remains on continuous bladder irrigation. Patient will possibly released to go home today or transferred to [facility]. Patient spouse will call office later today to advise. Patient would like to move forward with Biopsy as soon as possible. [facility] medical records should be faxed over from their office as well for Dr. Maradiaga. Pt agrees to OV on 02/10/[address] Maradiaga in [place] The patient's prostate is markedly enlarged. There are several areas of irregularity within the prostate. I would like to see the patient in the office so that I can review these images with him and make some plans moving forward documented in this encounter [facility] 01-16-2025 Discharge summary [facility] enter 01-16-2025 Telephone encount er Note Patient spouse called office to advise patient is currently admitted [facility]. Thursday he was unable to urinate. He went to the ED. They released him with a catheter. Thursday he went back to ED due to catheter being clogged with blood clots. Dr. Nava did a procedure to help stop the bleeding from the prostate. Patient remains on continuous bladder irrigation. Patient will possibly released to go home today or transferred to [facility]. Patient spouse will call office later today to advise. Patient would like to move forward with Biopsy as soon as possible. [facility] medical records should be faxed over from their office as well for Dr. Maradiaga. [facility] 01-15-2025 Progress note Note Date/Time January 15, 2025 3:58pm [facility] ENTER [address] [place] [address] Hospitalist Progress Note Signed Patient: Stephane Toribio MR#: [id number] : 1960 Acct:[id number] Age/Sex: 64 / M Adm Date: 5 Loc: 4N Room: [address] [place] [address] Type: ADM INOo Attending Dr: Augusto Duque MD Copies to: ~ Date of Service: 01/15/2025 Subjective Subjective Narrative: Patient is a 64-year-old male with past medical history significant for BPH who presents with gross hematuria. Patient reports earlier today of having difficulties urinating [facility] where he was determined have urinary tension and Mendoza catheter was placed. Patient reports later of having gross blood with clotting so decided come to [facility] ER for further evaluation and management. Patient currently being worked up with urologist in [place] due to enlarged prostate with nodules. 01/15 follow-up Patient resting comfortably status post cystoscopy earlier this morning Exam Physical Exam Vital Signs: Temp Pulse Resp BP Pulse Ox O2 Del Method O2 Flow Rate 98.2 F 57 L 12 148/86 H 99 Room Air 6 01/15/25 08:00 01/15/25 13:15 01/15/25 13:15 01/15/25 13:15 01/15/25 13:15 01/15/25 12:55 01/15/25 12:50 Const General: comfortable Resp Effort & Inspection: no respiratory distress Auscultation: clear to auscultation bilaterally Cardio Rhythm: regular rhythm Heart Sounds: S1 normal and S2 normal Objective Lab Results 01/15/25 05:30 01/15/25 05:30 Microbiology Results Microbiology 01/14/25 11:21 Urine - Mendoza Catheter Urine Culture - Preliminary No Growth 1 Day Meds Allergies and Active Meds Allergies No Known Allergies Allergy (Verified 01/14/25 10:10) Active Meds: Active Medications Generic Name Dose Route Start Last Admin Trade Name Freq PRN Reason Stop Dose Admin Acetaminophen 650 mg 01/15/25 14:13 01/15/25 14:28 Acetaminophen 325 Mg Tablet PO 01/15/26 14:12 650 mg Q6H PRN Administration Pain Finasteride 5 mg 01/15/25 09:00 01/15/25 11:10 Finasteride 5 Mg Tablet PO 01/15/26 08:59 Not Given DAILY TRANG Hyoscyamine 0.125 mg 01/15/25 13:07 01/15/25 13:46 Hyoscyamine Sulfate 0.125 Mg Tab.Rapdis SUBLINGUAL 01/15/26 13:06 0.125 mg Q4H PRN Administration Bladder Spasms Lactated Ringer's 1,000 mls @ 75 mls/hr 01/14/25 18:00 01/15/25 13:03 Lactated Ringers IV 01/14/26 17:59 75 mls/hr .[id number] TRANG Infusion Lisinopril 20 mg 01/14/25 21:00 01/15/25 11:10 Lisinopril 20 Mg Tablet PO 01/14/26 20:59 Not Given DAILY TRANG Montelukast Sodium 10 mg 01/15/25 09:00 01/15/25 11:11 Montelukast 10 Mg Tablet PO 01/15/26 08:59 Not Given DAILY TRANG Pantoprazole Sodium 40 mg 01/15/25 09:00 01/15/25 11:11 Pantoprazole 40 Mg Tablet.Dr PO 01/15/26 08:59 Not Given DAILY TRANG Sodium Chloride 0 ml 01/14/25 10:10 01/14/25 16:47 Sodium Chloride 0.9 % 10 Ml Syringe IV-PUSH 01/14/26 10:09 10 ml PRN PRN Administration Flush Tamsulosin HCl 0.4 mg 01/15/25 09:00 01/15/25 11:11 Tamsulosin 0.4 Mg Cap.Er.24h PO 01/15/26 08:59 Not Given DAILY TRANG A&P - Hospitalist Assessment/Plan (1) BPH loc w urin obs/LUTS: (2) Acute urinary retention: (3) Gross hematuria: Plan Patient is a 64-year-old male with past medical history significant for BPH who presents with gross hematuria. 1. Gross hematuria CT of the abdomen/pelvis on admission did reveal Mendoza catheter in place with decompressed urinary bladder in addition to hypodense material in the lumen of the urinary bladder consistent with blood with no other abnormalities noted in the abdomen/pelvis. Urology was consulted and this morning patient status post cystoscopy with clot evaluation with few duration prostatic bleeding points. Patient currently on CBI 2. Urinary retention Suspect secondary to BPH; will maintain Mendoza catheter in place Urology following for recommendations 3. Renal insufficiency Renal function improved with creatinine this morning 1.19 from 1.35 and GFR now greater than 60 from 58.2 Suspect secondary to the above Will continue to monitor 4. Hypertension Continue home medications Documented By: Augusto Duque MD 01/15/25 1533 Signed By: <Electronically signed by Augusto Duque MD> 01/15/25 4087 [facility] Work Phone: 1(729) 961-781610-05-2025 [place] [address] Hospitalist Progress Note Signed Patient: Stephane Toribio MR#: [id number] : 1960 Acct:[id number] Age/Sex: 64 / M Adm Date: 5 Loc: 4N Room: 6U0525-8 Type: ADM INOo Attending Dr: Augusto Duque MD Copies to: ~ Date of Service: 01/15/2025 Subjective Subjective Narrative: Patient is a 64-year-old male with past medical history significant for BPH who presents with grosshematuria. Patient reports earlier today of having difficulties urinating so decided go to [facility] ER for further evaluation where he was determined have urinary tension and Mendoza catheter was placed. Patient reports later of having gross blood with clotting so decided come to [facility] ER for further evaluation and management. Patient currently being worked up with urologist in [place] due to enlarged prostate with nodules. 01/15 follow-up Patient resting comfortably status post cystoscopy earlier this morning Exam Physical Exam Vital Signs: Temp Pulse Resp BP Pulse Ox O2 Del Method O2 Flow Rate 98.2 F 57 L 12 148/86 H 99 Room Air 6 01/15/25 08:00 01/15/25 13:15 01/15/25 13:15 01/15/25 13:15 01/15/25 13:15 01/15/25 12:55 01/15/25 12:50 Const General: comfortable Resp Effort & Inspection: no respiratory distress Auscultation: clear to auscultation bilaterally Cardio Rhythm: regular rhythm Heart Sounds: S1 normal and S2 normal Objective Lab Results 01/15/25 05:30 01/15/25 05:30 Microbiology Results Microbiology 01/14/25 11:21 Urine - Mendoza Catheter Urine Culture - Preliminary No Growth 1 Day Meds Allergies and Active Meds Allergies No Known Allergies Allergy (Verified 01/14/25 10:10) Active Meds: Active Medications Generic Name Dose Route Start Last Admin Trade Name Freq PRN Reason Stop Dose Admin Acetaminophen 650 mg 01/15/25 14:13 01/15/25 14:28 Acetaminophen 325 Mg Tablet PO 01/15/26 14:12 650 mg Q6H PRN Administration Pain Finasteride 5 mg 01/15/25 09:00 01/15/25 11:10 Finasteride 5 Mg Tablet PO 01/15/26 08:59 Not Given DAILY TRANG Hyoscyamine 0.125 mg 01/15/25 13:07 01/15/25 13:46 Hyoscyamine Sulfate 0.125 Mg Tab.Rapdis SUBLINGUAL 01/15/26 13:06 0.125 mg Q4H PRN Administration Bladder Spasms Lactated Ringer's 1,000 mls @ 75 mls/hr 01/14/25 18:00 01/15/25 13:03 Lactated Ringers IV 01/14/26 17:59 75 mls/hr .[id number] TRANG Infusion Lisinopril 20 mg 01/14/25 21:00 01/15/25 11:10 Lisinopril 20 Mg Tablet PO 01/14/26 20:59 Not Given DAILY TRANG Montelukast Sodium 10 mg 01/15/25 09:00 01/15/25 11:11 Montelukast 10 Mg Tablet PO 01/15/26 08:59 Not Given DAILY TRANG Pantoprazole Sodium 40 mg 01/15/25 09:00 01/15/25 11:11 Pantoprazole 40 Mg Tablet.Dr PO 01/15/26 08:59 Not Given DAILY TRANG Sodium Chloride 0 ml 01/14/25 10:10 01/14/25 16:47 Sodium Chloride 0.9 % 10 Ml Syringe IV-PUSH 01/14/26 10:09 10 ml PRN PRN Administration Flush Tamsulosin HCl 0.4 mg 01/15/25 09:00 01/15/25 11:11 Tamsulosin 0.4 Mg Cap.Er.24h PO 01/15/26 08:59 Not Given DAILY TRANG A&P - Hospitalist Assessment/Plan (1) BPH loc w urin obs/LUTS: (2) Acute urinary retention: (3) Gross hematuria: Plan Patient is a 64-year-old male with past medical history significant for BPH who presents with grosshematuria. 1. Gross hematuria CT of the abdomen/pelvis on admission did reveal Mendoza catheter in place with decompressed urinary bladder in addition to hypodense material in the lumen of the urinary bladder consistent with blood with no other abnormalities noted in the abdomen/pelvis. Urology was consulted and this morning patient status post cystoscopy with clot evaluation with fewduration prostatic bleeding points. Patient currently on CBI 2. Urinary retention Suspect secondary to BPH; will maintain Mendoza catheter in place Urology following for recommendations 3. Renal insufficiency Renal function improved with creatinine this morning 1.19 from 1.35 and GFR now greater than 60 from 58.2 Suspect secondary to the above Will continue to monitor 4. Hypertension Continue home medications Documented By: uAgusto Duque MD 01/15/25 1531 Signed By: 01/15/25 1558 [facility]10-04-2025 History and physical note Author Augusto Duque [facility] Note Date/Time January 14, 2025 6: 15pm [facility] ENTER [address] [place] [address] Hospitalist H&P Signed Patient: Stephane Toribio MR#: [id number] : 1960 Acct:[id number] Age/Sex: 64 / M Adm Date: 5 Loc: ER Room: Type: [facility] ER Attending Dr: Copies to: NON STAFF MD Roverto Raphael, DO~ HPI DATE OF EXAMINATION: 01/14/25 CHIEF COMPLAINT: Gross hematuria HISTORY OF PRESENT ILLNESS: Patient is a 64-year-old male with past medical history significant for BPH who presents with gross hematuria. Patient reports earlier today of having difficulties urinating so decided go to [facility] ER for further evaluation where he was determined have urinary tension and Mendoza catheter was placed. Patient reports later of having gross blood with clotting so decided come to [facility] for further evaluation and management. Patient currently being worked up with urologist in [place] due to enlarged prostate with nodules. In the ER, vital signs reviewed and are stable. Labs on admission reviewed with significant findings including elevated creatinine of 1.35 with a GFR of 58.2 Urinalysis revealed microscopic hematuria CT of the abdomen/pelvis on admission did reveal Mendoza catheter in place with decompressed urinary bladder in addition to hypodense material in the lumen of the urinary bladder consistent with blood with no other abnormalities noted in the abdomen/pelvis. Urology was consulted from the ER and patient evaluated the bedside and will be admitted to [facility] telemetry for further evaluation management. Review of Systems Review of Systems All other systems reviewed & are negative unless noted below or in HPI PMF Social History Smoking Status: Never smoker Substance Use Type: Alcohol Meds Medications and Allergies Allergies No Known Allergies Allergy (Verified 01/14/25 10:10) Home Medications finasteride 5 mg tablet 5 mg PO DAILY 01/14/25 [History Confirmed 01/14/25] lisinopril 20 mg tablet 20 mg PO DAILY 01/14/25 [History Confirmed 01/14/25] montelukast 10 mg tablet 10 mg PO DAILY 01/14/25 [History Confirmed 01/14/25] pantoprazole 40 mg tablet,delayed release 40 mg PO DAILY 01/14/25 [History Confirmed 01/14/25] tamsulosin 0.4 mg capsule 0.4 mg PO DAILY 01/14/25 [History Confirmed 01/14/25] Exam Physical Exam Vital Signs: Temp Pulse Resp BP Pulse Ox O2 Del Method 98.2 F 62 18 158/77 H 96 Room Air 01/14/25 10:11 01/14/25 16:13 01/14/25 16:13 01/14/25 16:13 01/14/25 16:13 01/14/25 16:13 Const General: comfortable Resp Effort & Inspection: no respiratory distress Auscultation: clear to auscultation bilaterally Cardio Rhythm: regular rhythm Heart Sounds: S1 normal and S2 normal Other: Patient noted to have gross hematuria in CBI bag Results - Hospitalist H&P Lab Results Labs: Laboratory Last Values Corrected WBC 6.1 X10E3/uL (4.1-10.5) 01/14/25 15:50 Uncorrected WBC Count 6.1 x10E3/uL (4.1-10.5) 01/14/25 15:50 RBC 4.43 x10E6/uL (3.90-5.60) 01/14/25 15:50 Hgb 13.1 g/dL (13.0-17.0) 01/14/25 15:50 Hct 38.3 % (38.8-50.0) L 01/14/25 15:50 MCV 86.6 fl (83.5-101) 01/14/25 15:50 MCH 29.6 pg (27.5-35.2) 01/14/25 15:50 MCHC 34.2 g/dL (32.5-35.6) 01/14/25 15:50 RDW 12.6 % (12.0-14.8) 01/14/25 15:50 Plt Count 160 x10E3/uL (150-450) 01/14/25 15:50 MPV 7.2 fl (6.6-10.1) 01/14/25 15:50 Neut % (Auto) 63.7 % (.) 01/14/25 15:50 Lymph % (Auto) 22.8 % (.) 01/14/25 15:50 [place] % (Auto) 12.4 % (.) 01/14/25 15:50 Eos % (Auto) 0.6 % (.) 01/14/25 15:50 Baso % (Auto) 0.5 % (.) 01/14/25 15:50 Nucleat RBC Rel Count 0.3 /100 WBC (0-0.5) 01/14/25 15:50 Neut # (Auto) 3.9 x10E3/uL (1.8-7.7) 01/14/25 15:50 Lymph # (Auto) 1.4 x10E3/uL (1.00-4.8) 01/14/25 15:50 [place] # (Auto) 0.8 x10E3/uL (0.0-0.8) 01/14/25 15:50 Eos # (Auto) 0.0 x10E3/uL (0.0-0.45) 01/14/25 15:50 Baso # (Auto) 0.0 x10E3/uL (0.0-0.2) 01/14/25 15:50 Monocyte Dist Width 18.53 % (0.00-20.00) 01/14/25 15:50 PT 11.8 Seconds (9.0-12.9) 01/14/25 15:50 INR 1.0 01/14/25 15:50 APTT 29.6 Seconds (25.1-36.5) 01/14/25 15:50 PHA Creatinine Clear 78.29 01/14/25 15:50 Sodium 139 mmol/L (136-145) 01/14/25 15:50 Potassium 4.2 mmol/L (3.5-5.1) 01/14/25 15:50 Chloride 109 mmol/L (98-107) H 01/14/25 15:50 Carbon Dioxide 24.8 mmol/L (21.0-31.0) 01/14/25 15:50 Anion Gap 9.4 mEq/L (6.0-15.0) 01/14/25 15:50 BUN 20 mg/dL (7-25) 01/14/25 15:50 Creatinine 1.35 mg/dL (0.70-1.30) H 01/14/25 15:50 Est GFR (CKD-EPI) 58.266 mL/Min 01/14/25 15:50 Glucose 117 mg/dL (70-100) H 01/14/25 15:50 Calcium 9.1 mg/dL (8.6-10.3) 01/14/25 15:50 Total Bilirubin 0.6 mg/dl (0.3-1.0) 01/14/25 15:50 AST 20 U/L (13-39) 01/14/25 15:50 ALT 21 U/L (7-52) 01/14/25 15:50 Alkaline Phosphatase 60 U/L (34-104) 01/14/25 15:50 Total Protein 6.6 gm/dL (6.4-8.9) 01/14/25 15:50 Albumin 4.1 gm/dL (3.5-5.7) 01/14/25 15:50 Globulin 2.5 gm/dL 01/14/25 15:50 Albumin/Globulin Ratio 1.6 01/14/25 15:50 Urine Color Light-red (Yellow) A 01/14/25 11: Urine Appearance Cloudy (Clear) A 01/14/25 11:21 Urine pH 6.0 (5.0-9.0) 01/14/25 11:21 Ur Specific [place] 1.006 (1.001-1.030) 01/14/25 11:21 Urine Protein 30 mg/dL (Negative) H 01/14/25 11:21 Urine Glucose (UA) Normal mg/dL (Normal) 01/14/25 11:21 Urine Ketones Negative (Negative) 01/14/25 11:21 Urine Occult Blood 3+ (Negative) H 01/14/25 11:21 Urine Nitrite Negative (Negative) 01/14/25 11:21 Urine Bilirubin Negative (Negative) 01/14/25 11:21 Urine Urobilinogen Normal mg/dL (Normal) 01/14/25 11:21 Ur Leukocyte Esterase 2+ (Negative) H 01/14/25 11:21 Urine RBC Innumerable /HPF (0-4) H 01/14/25 11:21 Urine WBC Innumerable /HPF (0-4) H 01/14/25 11:21 Urine WBC Clumps Many /LPF (None Seen) H 01/14/25 11:21 Ur Squamous Epith Cells 1-2 /HPF (0-2) 01/14/25 11:21 Urine Bacteria None seen /HPF (None Seen) 01/14/25 11:21 Hyaline Casts None /LPF (0-8) 01/14/25 11:21 Urine Mucus Rare /LPF 01/14/25 11:21 Assessment & Plan Assessment/Plan (1) BPH loc w urin obs/LUTS: (2) Acute urinary retention: (3) Gross hematuria: Plan Patient is a 64-year-old male with past medical history significant for BPH who presents with gross hematuria. 1. Gross hematuria CT of the abdomen/pelvis on admission did reveal Mendoza catheter in place with decompressed urinary bladder in addition to hypodense material in the lumen of the urinary bladder consistent with blood with no other abnormalities noted in the abdomen/pelvis. Urology was consulted with recommendations to maintain TBI in addition to consideration for cystoscopy in the morning. 2. Urinary retention Suspect secondary to BPH; will maintain Mendoza catheter in place Urology following for recommendations 3. Renal insufficiency Labs on admission reviewed with significant findings including elevated creatinine of 1.35 with a GFR of 58.2 Suspect secondary to the above Will continue to monitor 4. Hypertension Continue home medications IP vs OBS Justification Based on differential dx, clinical care plan, and risk of adverse events, if untreated, in my clinical judgement this patient requires an acute care setting as: OBSERVATION because of an expectation of an under 2 midnight stay. Estimated length of stay (# of days): 2 Documented By: Augusto Duque MD 01/14/25 2077 Signed By: <Electronically signed by Augusto Duque MD> 01/14/[address] [facility] Work Phone: 1(244) 201-393810-04-2025 Evaluation note* Diagnosis Onset Date Resolution Status Admit Date Abnormal urologic system diagnostic imaging acute January 14, 2025 5:47pm Acute urinary retention acute O ctober 2024 5:47pm BPH loc w urin obs/LUTS acute O ctober 2024 5:47pm Gross hematuria acute January 142024 5:47pm [facility] Work Phone: [phone] 651-756910-04-2025 Consult note Author Hitesh Nava [facility] Note Date/Time January 14, 2025 5: 03pm [facility] ENTER [address] [place], [place] [id number] Urology Consult Note Signed Patient: Stephane Toribio MR#: [id number] : 1960 Acct:[id number] Age/Sex: 64 / M Adm Date: 5 Loc: ER Room: Type: [facility] ER Attending Dr: Copies to: NON STAFF MD Roverto Robles, DO~ History of Present Illness Consult Details Consult Date: 01/14/2025 HPI: This is an emergency room evaluation on Stephane who is a 64-year-old male visiting from the [facility]. [facility] with [facility]. Apparently he had just under 700 cc urinary retention. He subsequently began tobleed. The catheter was clogging up. He presents to [facility] ER where a three-way Mendoza catheter was placed and CBI initiated and urologic evaluation requested. CBI is currently ongoing. The patient has a fairly complex urologic history and that he has longstanding BPH and has been on alpha blockers consisting of tamsulosin at 0.4 mg daily. Hepreviously was on finasteride but actually stopped that medication as it prevented him from giving blood. Very recently his urologist Dr. Maradiaga started him back on finasteride and still maintained on tamsulosin. An MRI of the prostate was obtained secondary to an elevation in PSA. The patient and his have this information on [employer]. This demonstrates a 197 cc prostate with at least several abnormalities being PI-RADS 3 but also 1 abnormality with a PI-RADS 4. He has an upcoming visit with that urologist to discuss findings and further plans. At my request CT scan of the abdomen pelvis is just about to be performed. The patient relates that his brother apparently has had a significant prostatic enlargement problem as well as did his father. No one in his immediate family has had prostate cancer to his knowledge. The entire PMH,PSH,ROS, family and social history, medications, and allergies are reviewed and unchanged from the admission H and P documented by Dr. Wood earlier today [facility] Social History Smoking Status: Never smoker Substance Use Type: Alcohol Meds Medications and Allergies Allergies No Known Allergies Allergy (Verified 01/14/25 10:10) Exam Physical Exam Vital Signs: Temp Pulse Resp BP Pulse Ox O2 Del Method 98.2 F 62 18 158/77 H 96 Room Air 01/14/25 10:11 01/14/25 16:13 01/14/25 16:13 01/14/25 16:13 01/14/25 16:13 01/14/25 16:13 Narrative: General: The patient appears nontoxic. Does not appear ill. Skin: Warm, dry. No gross lesions are identified. HEENT: Normocephalic, atraumatic. Pupils equal, round, and reactive to light and accommodation. Oral mucosa moist. Respiratory: No increased respiratory effort. Cardiac: Regular rate and rhythm GI: Abdomen is soft, nontender, negative peritoneal signs, no obvious hepatosplenomegaly : The bladder is nonpalpable. There is no CVA tenderness bilaterally. Genitalia: phallus normal, testes normal without tenderness or mass, scrotum normal, indwelling Mendoza catheter is present and draining light pink in the tubing and redder in the bag. No clots. Musculoskeletal: Moves all extremities, normal strength Neurologic: Awake, alert, oriented Psychiatric: Affect normal to clinical condition No obvious adenopathy Results - Urology Labs 01/14/25 15:50 01/14/25 15:50 Labs: Laboratory Results - Last 48 hrs. 01/14/25 15:50: Corrected WBC 6.1, Uncorrected WBC Count 6.1, RBC 4.43, Hgb 13.1, Hct 38.3 L, MCV 86.6, MCH 29.6, MCHC 34.2, RDW 12.6, Plt Count 160, MPV 7.2, Neut % (Auto) 63.7, Lymph % (Auto) 22.8, [place] % (Auto) 12.4, Eos % (Auto) 0.6, Baso % (Auto) 0.5, Nucleat RBC Rel Count 0.3, Neut # (Auto) 3.9, Lymph # (Auto) 1.4, [place] # (Auto) 0.8, Eos # (Auto) 0.0, Baso # (Auto) 0.0, Monocyte Dist Width 18.53, PT 11.8, INR 1.0, APTT 29.6, PHA Creatinine Clear 78.29, Sodium 139, Potassium 4.2, Chloride 109 H, Carbon Dioxide 24.8, Anion Gap 9.4, BUN 20, Creatinine 1.35 H, Est GFR (CKD- EPI) 58.266, Glucose 117 H, Calcium 9.1,Total Bilirubin 0.6, AST 20, ALT 21, Alkaline Phosphatase 60, Total Protein 6.6,Albumin 4.1, Globulin 2.5, Albumin/Globulin Ratio 1.6 01/14/25 11:21: Urine Color Light-red A, Urine Appearance Cloudy A, Urine pH 6.0, Ur Specific [place] 1.006, Urine Protein 30 H, Urine Glucose (UA) Normal, Urine Ketones Negative, Urine Occult Blood 3+ H, Urine Nitrite Negative, Urine Bilirubin Negative, Urine Urobilinogen Normal, Ur Leukocyte Esterase 2+ H, UrineRBC Innumerable H, Urine WBC Innumerable H, Urine WBC Clumps Many H, Ur SquamousEpith Cells 1-2, Urine Bacteria None seen, Hyaline Casts None, Urine Mucus Rare Microbiology Microbiology: 01/14/25 11:21 Urine - Mendoza Catheter Urine Culture - Pending Assessment/Plan (1) Gross hematuria: Code(s): R31.0 - Gross hematuria (2) Acute urinary retention: Code(s): R33.8 - Other retention of urine (3) BPH loc w urin obs/LUTS: Code(s): N40.1 - Benign prostatic hyperplasia with lower urinary tract symptoms (4) Abnormal urologic system diagnostic imaging: Code(s): R93.49 - Abnormal radiologic findings on diagnostic imaging of other urinary organs Plan Reviewed labs. Discussed extensively with the patient and his . Reviewed MRI report from [facility]. Scan which was just completed The patient currently is on continuous bladder irrigation. This should continue. The best course is that over time the gross hematuria dissipates and we can discontinue the irrigation and the patient would then be discharged to begoin home to his local hospitals and further management per his urologist there. The other option is to consider operative intervention here with cystoscopy, declotting of the bladder, fulguration of bleeding points, assuming that the etiology of gross hematuria is lower. The certainly seems to be the case as he was not having gross hematuria prior to the initial Mendoza catheterization due tohis urinary retention. (just under 700 cc) His urologist in the [place] area will subsequently have to be making decisions regarding prostate biopsies given the abnormality on MRI as well as management of his significantly enlarged prostate at 197 g. The patient should be maintained on his finasteride and tamsulosin at this point. He may have to have consideration for much more aggressive intervention on his prostate depending whether or not prostate cancer exists. The patient and his are in agreement to wait on the CT scan findings and wewill see how he does clinically with the CBI and make decisions regarding the need for possible surgical intervention here at [facility]. Will keep him n.p.o. after midnight just in case operative interventionis indicated. He does carry an increased anesthesia risk secondary to morbid obesity. CT scan just completed. No distinct upper tract abnormalities other than some renal cysts to my examination. Report pending. He does have a very large prostate extending into the bladder. Indwelling three-way Mendoza catheter is in correct position. Documented By: Hitesh Nava MD 01/14/25 1648 Signed By: <Electronically signed by MD Hitesh Nava> 01/14/25 1709 [facility] Work Phone: 1(362) 834-731210-04-2025 History and physical [place] [id number] Hospitalist H&P Signed Patient: Stephane Toribio MR#: [id number] : 1960 Acct:[id number] Age/Sex: 64 / M Adm Date: 5 Loc: ER Room: Type: [facility] ER Attending Dr: Copies to: NON STAFF MD Roverto Raphael, DO~ HPI DATE OF EXAMINATION: 01/14/25 CHIEF COMPLAINT: Gross hematuria HISTORY OF PRESENT ILLNESS: Patient is a 64-year-old male with past medical history significant for BPH who presents with grosshematuria. Patient reports earlier today of having difficulties urinating [facility] where he was determined have urinary tension and Mendoza catheter was placed. Patient reports later of having gross blood with clotting so decided come to [facility] ER for further evaluation and management. Patient currently being worked up with urologist in [place] due to enlarged prostate with nodules. In the ER, vital signs reviewed and are stable. Labs on admission reviewed with significant findings including elevated creatinine of 1.35 with a GFR of 58.2 Urinalysis revealed microscopic hematuria CT of the abdomen/pelvis on admission did reveal Mendoza catheter in place with decompressed urinary bladder in addition to hypodense material in the lumen of the urinary bladder consistent with blood with no other abnormalities noted in the abdomen/pelvis. Urology was consulted from the ER and patient evaluated the bedside and will be admitted to [facility] for further evaluation management. Review of Systems Review of Systems All other systems reviewed & are negative unless noted below or in [facility] Social History Smoking Status: Never smoker Substance Use Type: Alcohol Meds Medications and Allergies Allergies No Known Allergies Allergy (Verified 01/14/25 10:10) Home Medications finasteride 5 mg tablet 5 mg PO DAILY 01/14/25 [History Confirmed 01/14/25] lisinopril 20 mg tablet 20 mg PO DAILY 01/14/25 [History Confirmed 01/14/25] montelukast 10 mg tablet 10 mg PO DAILY 01/14/25 [History Confirmed 01/14/25] pantoprazole 40 mg tablet,delayed release 40 mg PO DAILY 01/14/25 [History Confirmed 01/14/25] tamsulosin 0.4 mg capsule 0.4 mg PO DAILY 01/14/25 [History Confirmed 01/14/25] Exam Physical Exam Vital Signs: Temp Pulse Resp BP Pulse Ox O2 Del Method 98.2 F 62 18 158/77 H 96 Room Air 01/14/25 10:11 01/14/25 16:13 01/14/25 16:13 01/14/25 16:13 01/14/25 16:13 01/14/25 16:13 Const General: comfortable Resp Effort & Inspection: no respiratory distress Auscultation: clear to auscultation bilaterally Cardio Rhythm: regular rhythm Heart Sounds: S1 normal and S2 normal Other: Patient noted to have gross hematuria in CBI bag Results - Hospitalist H&P Lab Results Labs: Laboratory Last Values Corrected WBC 6.1 X10E3/uL (4.1-10.5) 01/14/25 15:50 Uncorrected WBC Count 6.1 x10E3/uL (4.1-10.5) 01/14/25 15:50 RBC 4.43 x10E6/uL (3.90-5.60) 01/14/25 15:50 Hgb 13.1 g/dL (13.0-17.0) 01/14/25 15:50 Hct 38.3 % (38.8-50.0) L 01/14/25 15:50 MCV 86.6 fl (83.5-101) 01/14/25 15:50 MCH 29.6 pg (27.5-35.2) 01/14/25 15:50 MCHC 34.2 g/dL (32.5-35.6) 01/14/25 15:50 RDW 12.6 % (12.0-14.8) 01/14/25 15:50 Plt Count 160 x10E3/uL (150-450) 01/14/25 15:50 MPV 7.2 fl (6.6-10.1) 01/14/25 15:50 Neut % (Auto) 63.7 % (.) 01/14/25 15:50 Lymph % (Auto) 22.8 % (.) 01/14/25 15:50 [place] % (Auto) 12.4 % (.) 01/14/25 15:50 Eos % (Auto) 0.6 % (.) 01/14/25 15:50 Baso % (Auto) 0.5 % (.) 01/14/25 15:50 Nucleat RBC Rel Count 0.3 /100 WBC (0-0.5) 01/14/25 15:50 Neut # (Auto) 3.9 x10E3/uL (1.8-7.7) 01/14/25 15:50 Lymph # (Auto) 1.4 x10E3/uL (1.00-4.8) 01/14/25 15:50 [place] # (Auto) 0.8 x10E3/uL (0.0-0.8) 01/14/25 15:50 Eos # (Auto) 0.0 x10E3/uL (0.0-0.45) 01/14/25 15:50 Baso # (Auto) 0.0 x10E3/uL (0.0-0.2) 01/14/25 15:50 Monocyte Dist Width 18.53 % (0.00-20.00) 01/14/25 15:50 PT 11.8 Seconds (9.0-12.9) 01/14/25 15:50 INR 1.0 01/14/25 15:50 APTT 29.6 Seconds (25.1-36.5) 01/14/25 15:50 PHA Creatinine Clear 78.29 01/14/25 15:50 Sodium 139 mmol/L (136-145) 01/14/25 15:50 Potassium 4.2 mmol/L (3.5-5.1) 01/14/25 15:50 Chloride 109 mmol/L (98-107) H 01/14/25 15:50 Carbon Dioxide 24.8 mmol/L (21.0-31.0) 01/14/25 15:50 Anion Gap 9.4 mEq/L (6.0-15.0) 01/14/25 15:50 BUN 20 mg/dL (7-25) 01/14/25 15:50 Creatinine 1.35 mg/dL (0.70-1.30) H 01/14/25 15:50 Est GFR (CKD-EPI) 58.266 mL/Min 01/14/25 15:50 Glucose 117 mg/dL (70-100) H 01/14/25 15:50 Calcium 9.1 mg/dL (8.6-10.3) 01/14/25 15:50 Total Bilirubin 0.6 mg/dl (0.3-1.0) 01/14/25 15:50 AST 20 U/L (13-39) 01/14/25 15:50 ALT 21 U/L (7-52) 01/14/25 15:50 Alkaline Phosphatase 60 U/L (34-104) 01/14/25 15:50 Total Protein 6.6 gm/dL (6.4-8.9) 01/14/25 15:50 Albumin 4.1 gm/dL (3.5-5.7) 01/14/25 15:50 Globulin 2.5 gm/dL 01/14/25 15:50 Albumin/Globulin Ratio 1.6 01/14/25 15:50 Urine Color Light-red (Yellow) A 01/14/25 11:21 Urine Appearance Cloudy (Clear) A 01/14/25 11:21 Urine pH 6.0 (5.0-9.0) 01/14/25 11:21 Ur Specific [place] 1.006 (1.001-1.030) 01/14/25 11:21 Urine Protein 30 mg/dL (Negative) H 01/14/25 11:21 Urine Glucose (UA) Normal mg/dL (Normal) 01/14/25 11:21 Urine Ketones Negative (Negative) 01/14/25 11:21 Urine Occult Blood 3+ (Negative) H 01/14/25 11:21 Urine Nitrite Negative (Negative) 01/14/25 11:21 Urine Bilirubin Negative (Negative) 01/14/25 11:21 Urine Urobilinogen Normal mg/dL (Normal) 01/14/25 11:21 Ur Leukocyte Esterase 2+ (Negative) H 01/14/25 11:21 Urine RBC Innumerable /HPF (0-4) H 01/14/25 11:21 Urine WBC Innumerable /HPF (0-4) H 01/14/25 11:21 Urine WBC Clumps Many /LPF (None Seen) H 01/14/25 11:21 Ur Squamous Epith Cells 1-2 /HPF (0-2) 01/14/25 11:21 Urine Bacteria None seen /HPF (None Seen) 01/14/25 11:21 Hyaline Casts None /LPF (0-8) 01/14/25 11:21 Urine Mucus Rare /LPF 01/14/25 11:21 Assessment & Plan Assessment/Plan (1) BPH loc w urin obs/LUTS: (2) Acute urinary retention: (3) Gross hematuria: Plan Patient is a 64-year-old male with past medical history significant for BPH who presents with grosshematuria. 1. Gross hematuria CT of the abdomen/pelvis on admission did reveal Mendoza catheter in place with decompressed urinary bladder in addition to hypodense material in the lumen of the urinary bladder consistent with blood with no other abnormalities noted in the abdomen/pelvis. Urology was consulted with recommendations to maintain TBI in addition to consideration for cystoscopy in the morning. 2. Urinary retention Suspect secondary to BPH; will maintain Mendoza catheter in place Urology following for recommendations 3. Renal insufficiency Labs on admission reviewed with significant findings including elevated creatinine of 1.35 with a GFR of 58.2 Suspect secondary to the above Will continue to monitor 4. Hypertension Continue home medications IP vs OBS Justification Based on differential dx, clinical care plan, and risk of adverse events, if untreated, in my clinical judgement this patient requires an acute care setting as: OBSERVATION because of an expectation of an under 2 midnight stay. Estimated length of stay (# of days): 2 Documented By: Augusto Duque MD 01/14/25 1739 Signed By: 01/14/25 1815 [facility]10-04-2025 [place] [address] Urology Consult Note Signed Patient: Stephane Toribio MR#: [id number] : 1960 Acct:[id number] Age/Sex: 64 / M Adm Date: 5 Loc: ER Room: Type: [facility] ER Attending Dr: Copies to: NON STAFF MD Roverto Robles, DO~ History of Present Illness Consult Details Consult Date: 01/14/2025 HPI: This is an emergency room evaluation on Stephane who is a 64-year-old male visiting from the [place] area. [facility] with [facility]. Apparently he had just under 700 cc urinary retention. He subsequently began tobleed. The catheter was clogging up. He presents to [facility] ER where a three-way Mendoza catheter was placed and CBI initiated and urologic evaluation requested. CBI is currently ongoing. The patient has a fairly complex urologic history and that he has longstanding BPH and has been on alpha blockers consisting of tamsulosin at 0.4 mg daily. Hepreviously was on finasteride but actually stopped that medication as it prevented him from giving blood. Very recently his urologist Dr. Maradiaga started him back on finasteride and still maintained on tamsulosin. An MRI of the prostate was obtained secondary to an elevation in PSA. [facility] This demonstrates a 197 cc prostate with at least several abnormalities being PI-RADS 3 but also 1 abnormality with a PI-RADS 4. He has an upcoming visit with that urologist to discuss findings and further plans. At my request CT scan of the abdomen pelvis is just about to be performed. The patient relates that his brother apparently has had a significant prostatic enlargement problemas well as did his father. No one in his immediate family has had prostate cancer to his knowledge. The entire PMH,PSH,ROS, family and social history, medications, and allergies are reviewed and unchanged from the admission H and P documented by Dr. Wood earlier today [facility] Social History Smoking Status: Never smoker Substance Use Type: Alcohol Meds Medications and Allergies Allergies No Known Allergies Allergy (Verified 01/14/25 10:10) Exam Physical Exam Vital Signs: Temp Pulse Resp BP Pulse Ox O2 Del Method 98.2 F 62 18 158/77 H 96 Room Air 01/14/25 10:11 01/14/25 16:13 01/14/25 16:13 01/14/25 16:13 01/14/25 16:13 01/14/25 16:13 Narrative: General: The patient appears nontoxic. Does not appear ill. Skin: Warm, dry. No gross lesions are identified. HEENT: Normocephalic, atraumatic. Pupils equal, round, and reactive to light and accommodation. Oral mucosa moist. Respiratory: No increased respiratory effort. Cardiac: Regular rate and rhythm GI: Abdomen is soft, nontender, negative peritoneal signs, no obvious hepatosplenomegaly : The bladder is nonpalpable. There is no CVA tenderness bilaterally. Genitalia: phallus normal, testes normal without tenderness or mass, scrotum normal, indwelling Mendoza catheter is present and draining light pink in the tubing and redder in the bag. No clots. Musculoskeletal: Moves all extremities, normal strength Neurologic: Awake, alert, oriented Psychiatric: Affect normal to clinical condition No obvious adenopathy Results - Urology Labs 01/14/25 15:50 01/14/25 15:50 Labs: Laboratory Results - Last 48 hrs. 01/14/25 15:50: Corrected WBC 6.1, Uncorrected WBC Count 6.1, RBC 4.43, Hgb 13.1, Hct 38.3 L, MCV 86.6, MCH 29.6, MCHC 34.2, RDW 12.6, Plt Count 160, MPV 7.2, Neut % (Auto) 63.7, Lymph % (Auto) 22.8,[place] % (Auto) 12.4, Eos % (Auto) 0.6, Baso % (Auto) 0.5, Nucleat RBC Rel Count 0.3, Neut # (Auto) 3.9, Lymph # (Auto) 1.4, [place] # (Auto) 0.8, Eos # (Auto) 0.0, Baso # (Auto) 0.0, Monocyte Dist Width 18.53, PT 11.8, INR 1.0, APTT 29.6, PHA Creatinine Clear 78.29, Sodium 139, Potassium 4.2, Chloride 109 H, Carbon Dioxide 24.8, Anion Gap 9.4, BUN 20, Creatinine 1.35 H, Est GFR (CKD-EPI) 58.266, Glucose 117 H, Calcium 9.1,Total Bilirubin 0.6, AST 20, ALT 21, Alkaline Phosphatase 60, Total Protein 6.6,Albumin 4.1, Globulin 2.5, Albumin/Globulin Ratio 1.6 01/14/25 11:21: Urine Color Light-red A, Urine Appearance Cloudy A, Urine pH 6.0, Ur Specific [place] 1.006, Urine Protein 30 H, Urine Glucose (UA) Normal, Urine Ketones Negative, Urine Occult Blood 3+ H, Urine Nitrite Negative, Urine Bilirubin Negative, Urine Urobilinogen Normal, Ur Leukocyte Esterase 2+ H, UrineRBC Innumerable H, Urine WBC Innumerable H, Urine WBC Clumps Many H, Ur SquamousEpith Cells 1-2, Urine Bacteria None seen, Hyaline Casts None, Urine Mucus Rare Microbiology Microbiology: 01/14/25 11:21 Urine - Mendoza Catheter Urine Culture - Pending Assessment/Plan (1) Gross hematuria: Code(s): R31.0 - Gross hematuria (2) Acute urinary retention: Code(s): R33.8 - Other retention of urine (3) BPH loc w urin obs/LUTS: Code(s): N40.1 - Benign prostatic hyperplasia with lower urinary tract symptoms (4) Abnormal urologic system diagnostic imaging: Code(s): R93.49 - Abnormal radiologic findings on diagnostic imaging of other urinary organs Plan Reviewed labs. Discussed extensively with the patient and his . Reviewed MRI report from [facility]. Scan which was just completed The patient currently is on continuous bladder irrigation. This should continue. The best course isthat over time the gross hematuria dissipates and we can discontinue the irrigation and the patientwould then be discharged to begoin home to his local hospitals and further management per his urologist there. The other option is to consider operative intervention here with cystoscopy, declotting of the bladder, fulguration of bleeding points, assuming that the etiology of gross hematuria is lower. The certainly seems to be the case as he was not having gross hematuria prior to the initial Mendoza catheterization due tohis urinary retention. (just under 700 cc) His urologist in the [place] area will subsequently have to be making decisions regarding prostate biopsies given the abnormality on MRI as well as management of his significantly enlarged prostate at 197 g. The patient should be maintained on his finasteride and tamsulosin at this point. He may have to have consideration for much more aggressive intervention on his prostate depending whether or not prostate cancer exists. The patient and his are in agreement to wait on the CT scan findings and wewill see how he does clinically with the CBI and make decisions regarding the need for possible surgical intervention here at [facility]. Will keep him n.p.o. after midnight just in case operativeinterventionis indicated. He does carry an increased anesthesia risk secondary to morbid obesity. CT scan just completed. No distinct upper tract abnormalities other than some renal cysts to my examination. Report pending. He does have a very large prostate extending into the bladder. Indwelling three-way Mendoza catheter is in correct position. Documented By: Hitesh Nava MD 01/14/25 1642 Signed By: 01/14/25 1703 [facility]10-04-2025 Radiology Diagnostic study note [facility] [place] [address] [place] [address] CT Scan Report Signed Patient: Stephane Toribio MR#: [id number] : 1960 Acct:[id number] Age/Sex: 64 / M ADM Date: 5 Loc: ER Room: Type: [facility] ER Attending Dr: Copies to: Roverto Wood DO~ Ordering Provider: Roverto Wood DO Date of Service: 01/14/25 CT/CT abdomen pelvis w con: hematuria CT ABDOMEN AND PELVIS WITH INTRAVENOUS CONTRAST: CLINICAL HISTORY: Mendoza placed yesterday passing blood. COMPARISON: None TECHNIQUE: Spiral images were obtained through the abdomen and pelvis followingthe administration of intravenous contrast. This CT exam was performed using one or more following dose reduction techniques: Automated exposure control, adjustment of the mA and/or kV according to patient size, or use of iterative reconstruction technique. FINDINGS: Lung Bases: [Mild lung scarring.] Organs:Liver gallbladder spleen pancreas and adrenal glands appear unremarkable. Subcentimeter low attenuating lesions involving the kidneys too small for accurate characterization. Aorta appears normal in caliber.[ GI: Stomach is grossly unremarkable. Small bowel appears nondilated. No acute colonic abnormality.[ Pelvis:[Mendoza catheter in place decompressing the urinary bladder. Prostatomegaly. Hyperdense material seen within the urinary bladder lumen consistent with the history of blood.] Peritoneum/Retroperitoneum:No free air or free fluid or lymphadenopathy.[ Abd wall/Bones:Abdominal wall demonstrates no acute findings. Osseous structures demonstrate degenerative change.[ CT/CT abdomen pelvis w con IMPRESSION: A Mendoza catheter is in place with decompression of the urinary bladder. There appears to be hyperdense material within the lumen of the urinary bladder consistent with the history of blood. Otherwise, no suspicious abnormalities seen within the abdomen or pelvis. Impression dictated by: Reji Yao Jr., D.OKrzysztof 01/14/2025 5:00 PM Dictation Location: [place] [address] Transcribed By: [facility] 01/14/25 170 Dictated By: Reji Yao Jr, DO 01/14/25 1653 Signed By: 01/14/25 1700 [facility]10-04-2025 NoteEducation Materials Urology Trouble Peeing (Acute Urinary Retention) in Males: What to Know Acute urinary retention is when a person can't pee at all or can only pee a little. This can come on all of a sudden. If it's not treated, it can lead to kidney problems or other serious problems. What are the causes? Acute urinary retention may be caused by: ? A problem with the urethra. This is the tube that drains pee from the bladder. ? Problems with the nerves in the bladder. ? Tumors. ? Some medicines. ? An infection. ? Having trouble pooping (constipation). What increases the risk? Older males are more at risk because their prostate gland may get larger as they age. Other health problems can also raise the risk. These include: ? Multiple sclerosis. ? Injury to the spinal cord. ? Diabetes. ? A condition that affects the way the brain works, such as dementia. ? Mental health problems. ? Having urinary retention before. What are the signs or symptoms? ? Trouble peeing. ? Pain in the lower belly. How is this treated? Treatment may include: ? Medicines. ? Treatment for problems that may cause this. ? Placing a soft tube called a catheter into the bladder to drain pee out of the body. ? Therapy to treat mental health problems. If needed, you may be treated in the hospital for kidney problems. Follow these instructions at home: Medicines ? Take medicines only as told. Do not take any medicine unless your doctor says it's OK. ? If you were given antibiotics, take them as told. Do not stop taking them even if you start to feel better. General instructions ? Do not smoke, vape, or use nicotine or tobacco. ? Drink more fluids as told. ? If you need to use a catheter, follow the instructions closely. This will help prevent a bladder infection. ? If told, keep track of changes in your blood pressure at home. Tell your doctor about them. Contact a doctor if: ? You have bladder cramping, called spasms. ? You leak pee when you have spasms. ? You have a fever or chills. ? You have blood in your pee. Get help right away if: ? You can't pee. This information is not intended to replace advice given to you by your health care provider. Make sure you discuss any questions you have with your health care provider. Document Revised: 11/26/2023 Document Reviewed: 11/26/2023 [employer] Patient Education ? 2024 [employer] Indwelling Urinary Catheter Insertion, Care After This sheet gives you information about how to care for yourself after your procedure. Your health care provider may also give you more specific instructions. If you have problems or questions, contact your health care provider. What can I expect after the procedure? After the procedure, it is common to have a slight discomfort around your urethra where the catheter enters your body. Follow these instructions at home: Caring for the catheter tubing and drainage bag ? Secure the catheter tubing and drainage bag to your leg or thigh to keep it from moving. ? Do not pull on your catheter. ? Check the catheter tubing regularly to make sure there are no kinks or blockages. ? Keep the drainage bag at or below the level of your bladder. This will enable your urine to only drain out instead of going back into your body. ? Do not let the drainage bag or catheter tubing touch the floor. ? Empty the drainage bag every 2?4 hours, or more often if needed. Do not let the bag get completely full. ? Disconnect the tubing and drainage bag as little as possible. General instructions ? Take showers daily to keep the catheter clean. Do not take a bath. ? Wash your hands with soap and water before and after touching the catheter, tubing, or drainage bag. ? Drink enough fluids to keep your urine pale yellow, or as told by your health care provider. How to remove the catheter Remove the catheter only if told by your health care provider. Follow instructions from your healthcare provider about when and how to remove the catheter. For most catheters, you will need to take the following steps: 1. Prepare your supplies. You will need: ? A syringe. This would be given to you by your health care provider. ? A towel. ? A wastebasket. 2. Empty the drainage bag if needed. 3. Wash your hands with soap and warm water. 4. Remove the tape that secures the catheter to your leg or thigh. 5. Get into a comfortable position, such as: ? Lying down with your head raised on pillows and your knees pointing to the ceiling. ? Sitting on a chair or the edge of a bed. 6. Place the towel under you to catch any spilled urine. 7. Put the syringe into the balloon port of the catheter. Use a firm push and twist motion to fit the syringe into the balloon port. 8. The water from the balloon will empty into the syringe. 9. Gently pull out the catheter once the balloon is empty. ? If the cath (more content not included)...[facility] [id number] Telephone encounter Note* Telephone Encounter - Verena Urbina - 01/13/2025 9:02 AM EDT Pt agrees to OV on 02/10/[address] Maradiaga in [place] [id number] Miscellaneous Notes* Telephone Encounter - Verena Urbina - 01/13/2025 9:02 AM EDT Pt agrees to OV on 02/10/[address] Maradiaga in [place] * Telephone Encounter - Reji Maradiaga MD - 01/12/2025 4:59 PM EDT The patient's prostate is markedly enlarged. There are several areas of irregularity within the prostate. I would like to see the patient in the office so that I can review these images with him and make some plans moving forward documented in this [facility]10-02-2025 Telephone encounter Note* Telephone Encounter - Reji Maradiaga MD - 01/12/2025 4:59 PM EDT The patient's prostate is markedly enlarged. There are several areas of irregularity within the prostate. I would like to see the patient in the office so that I can review these images with him and make some plans moving forward [id number] Telephone encounter Note* Telephone Encounter - Verena Urbina - 01/06/2025 9:43 AM EDT Pt has been added to MRI list. [id number] Miscellaneous Notes* Telephone Encounter - Verena Urbina - 01/06/2025 9:43 AM EDT Pt has been added to MRI list. * Telephone Encounter - Lisa Khan - 01/06/2025 8:59 AM EDT Pt is scheduled for 01/10 at 1:15 * Telephone Encounter - Lisa Khan - 01/05/2025 11:58 AM EDT I have started the auth for the MRI to see if we can move WENDY appt before jan.11 * Telephone Encounter - Alvarez Wharton - 01/05/2025 10:18 AM EDT Patient called in advising returning call to [place]. Patient made aware of MRI date, time, location. Patient again stated that starting 01/11/25 will have Medicare A and B. Patient has not yet received card. * Telephone Encounter - Reji Maradiaga MD - 01/05/2025 7:05 AM EDT MRI ordered * Telephone Encounter - Nidhi Cary RN - 01/05/2025 7:00 AM EDT Pt is agreeable to prostate MRI see [employer] for Good messages * Telephone Encounter - Chyna Patiño RN - 01/04/2025 8:13 AM EDT LM to return call or see [employer] for test result. * Telephone Encounter - Reji Maradiaga MD - 01/03/2025 10:49 PM EDT PSA 9.530 - lower than April, but still higher than 2023 I feel that prostate MRI is next step. If he agrees, then I will place order documented in this encounterSMansfield [id number] Telephone encounter Note* Telephone Encounter - Lisa Mireya Khan - 01/06/2025 8:59 AM EDT Pt is scheduled for 01/10 at 1:15 [id number] Progress note Author Phuong Ballard [facility] Note Date/Time January 05, 2025 4:08pm [facility] [address] [place] [address] Progress Note - Wound Care 01/05/25 0935 MR#: [id number] Acct: [id number] Name: STEPHANE TORIBIO Rep #:[id number] : 1960 64 From: Phuong cerda MD PCP: Dr. Abimael Elizabeth, DO Status:RE G RCR Location: History of Present Illness Date of Service: 01/05/25 Chief Complaint: Right calf nonhealing wound History of Wound: Mr. Stephane Toribio is a 64 y/o male who presents to the wound center today for ongoing management of his R posterior calf ulceration. He has previously been following with Chacha Dunham here but due to scheduling difficulties is seeing me for the next few weeks. He reports this calf ulcer has been present since around Mid-August, he really cannot pinpoint what may have provoked this. He does recall that remotely he hada thorny apple injure this calf and he subsequently had thorns/material come to the surface later on however he has not observed any such foreign material/body this time. He reports that initial treatment here was with a product that included silver and he felt he noticed improvement on that product; more recently it seems to have stalled a bit. He has some redness around the wound which he reports is fairly stable. He has not had increased pain. He reports mild drainage. He is not diabetic. He does not smoke. He has noticed some irritation around the wound edges which seems to correspond to where the adaptic contacts his skin. He has a R meniscus tear and had plans to proceed with arthroscopic interventionbut the wound must be healed in order for him to proceed. Progress of Wound: Courtesy visit: Being seen here for ulcer of right lower extremity. He states that since being on antibiotics, there has been some improvement. No new concerns reported at this time. Objective Data Objective Data Vital Signs: Vital Signs Temp Pulse Resp BP O2 Del Method 96.0 F L 69 14 151/70 H Room Air 01/05/25 09:08 01/05/25 09:08 01/05/25 09:08 01/05/25 09:08 12/29/24 13:31 Oxygen Delivery Method Room Air Lab / Micro Data Micro: Microbiology 12/22/24 13:36 Wound - Leg, Right Gram Stain - Final 12/22/24 13:36 Wound - Leg, Right Wound Culture - Final Staphylococcus aureus 12/22/24 13:36 Wound - Leg, Right Anaerobic Culture - Final No anaerobic bacteria isolated. Charges/Coding Procedures Integumentary 111xxx-113xx: [id number] Luisa subq tissue 20 sq cm/< Physical Exam Const alert, oriented x3 and no apparent distress General Appearance: cooperative and comfortable HEENT normocephalic, head/scalp atraumatic and hearing grossly normal bilaterally Eyes EOMs intact bilaterally General Eye: normal appearance of both eyes Neck full ROM General: normal visual inspection Resp normal respiratory effort Effort and Inspection: able to speak in complete sentences Extremity General Extremity: edema Skin Wounds: wounds noted size Size: See clinical note, bed granulating well and withslough, margins well approximated, no odor and surrounding erythema Neuro oriented x3, CN's II-XII intact bilaterally and moves all extremities Psych mental status grossly normal, thought process normal and cooperative Debridement Note Debridement Note Wound debrided: Right lower extremity (posterior/calf) Type of Debridement: Excisional debridement Anesthesia Used: 5% Lidocaine Gel Depth: in the subcutaneous layer Percentage of wound debrided: 100 Instrument Used: 5mm curette Tissue Removed: Slough and devitalized tissue Severity: Fat Layer Exposed Amount of bleeding with debridement: Mild Bleeding Controlled with: Pressure Patient tolerated procedure: Patient tolerated procedure well Post-Debridement Measurements and Additional Note: Post-Debridement Measurements/Treatment WC - Nurse 1 - General Ulcer Assessment Start: 12/22/24 13:20 Freq: Status: Active Protocol: LUIS ARMANDO Activity Type Activity Date Activity User E-sign Co-sign Detail Recorded Client Recorded Date Recorded By Document 12/22/24 13:20 KW [id number] 12/22/24 13:26 KW Document 12/29/24 13:31 KW [id number] 12/29/24 13:33 KW Document 01/05/25 09:08 ML [id number] 01/05/25 09:13 ML 12/22/24 12/29/24 01/05/25 13:20 13:31 09:08 - Today's Visit Information Type of service Follow-up Visit Follow-up Visit Follow-up Visit (Physician/STARCH TREATING ASSISTANT (Physician/STARCH TREATING ASSISTANT (Physician/STARCH TREATING ASSISTANT ) ) ) Arrival Mode Ambulatory Ambulatory Ambulatory Patient Identification Verified (Name & Yes Yes ) Patient Requires Transmission-Based No Precautions Vital Signs Temperature (97.8 F-99.1 F) 97.9 F 97.2 F L 96.0 F L Temperature Source Temporal Temporal Temporal Pulse Rate (60-100) 66 84 69 Pulse Location Monitor Monitor Monitor Respiratory Rate (12-18) 18 18 14 Respiratory rate source Observation Observation Observation Oxygen Delivery Method Room Air Room Air Blood Pressure (90/60-120/80) 140/73 H 142/93 H 151/70 H Blood Pressure Mean (mm Hg) 95 109 97 Source Monitor Monitor Monitor Position Semi-Fowlers Semi-Fowlers Sitting Blood Pressure Location Right Arm Left Arm Right Arm History Since Last Visit- (Skip if this is Patient's initial visit) Have you changed medications since your No No No last visit? Any new allergies or adverse reactions No No No Had a fall/change in ADL's that may No No No increase risk of falls Signs or symptoms of abuse and/or No No No neglect since last visit Have you been in the hospital since your No No No last visit? Has dressing in place as prescribed Yes Yes Yes Has compression in place as prescribed Yes Yes Yes Has offloadiing in place as prescribed N/A N/A N/A Experienced any changes in pain level or No No No management Left Footwear Regular Shoe Regular Shoe Right Footwear Regular Shoe Regular Shoe Pain Scale: 0-10 Numeric Is Patient Pain Free? Yes Yes Yes - Nurse 1 - General Ulcer Measurement Start: 12/22/24 13:20 Freq: Status: Active Protocol: Activity Type Activity Date Activity User E-sign Co-sign Detail Recorded Client Recorded Date Recorded By Document 12/22/24 13:20 KW [id number] 12/22/24 13:26 KW Edit Result 12/22/24 13:20 KW (1) [id number] 12/22/24 13:27 KW Document 12/29/24 13:31 KW [id number] 12/29/24 13:33 KW Document 01/05/25 09:08 ML [id number] 01/05/25 09:13 ML (1) Right Calf (cm) => 49.6 Right Ankle (cm) => 28.1 12/22/24 12/29/24 01/05/25 13:20 13:31 09:08 Wound Center Nurse 1 #1 R Calf cluster -Current Size (cm) - Length 0.6 3.6 2.5 -Current Size (cm) - Width 2.9 4 4.5 -Current Size (cm) - Depth 0.2 0.1 0.1 -Total Square Cm 1.74 14.4 11. -Date of Last Picture (Recall this 12/22/24 12/29/24 field) -Exudate Amt Medium Large -Exudate Type Serosanguineous Serosanguineous Serosanguineous -Wound Margin Distinct, Distinct, Outline Outline Attached Attached -Granulation Amt Large (67-100%) Medium (34-66%) -Granulation Quality Red Red -Slough/Fibrin Yes -Necrosis Amt Small (1-33%) Medium (34-66%) -Necrotic Tissue Type Adherent Slough Adherent Slough Adherent Slough -Texture (Za-wound Skin Appearance) Assessed Assessed,Rash Assessed -Moisture (Za-wound Skin Appearance) Assessed Assessed Assessed -Color (Za-wound Skin Appearance) Assessed Assessed, Assessed Erythema -Temperature (Za-wound Skin No Abnormality No Abnormality No Abnormality Appearance) (Pt Warm) (Pt Warm) (Pt Warm) -Tenderness on Palpation (Za-wound No No No Skin Appearance) -Ulcer Cleansing Rinsed/ Soap and Water Rinsed/ Irrigated with Irrigated with Saline Saline -Foul Odor after Cleansing No No No -Anesthetic Used 5% Lidocaine 5% Lidocaine 5% Lidocaine Gel Gel Gel Right Calf (cm) 49.6 Right Ankle (cm) 28.1 WC - Nurse 2 - General Ulcer CM Notes Start: 12/22/24 13:20 Freq: Status: Active Protocol: Activity Type Activity Date Activity User E-sign Co-sign Detail Recorded Client Recorded Date Recorded By Document 12/22/24 13:35 GM [id number] 12/22/24 13:38 Document 12/29/24 13:45 [id number] 12/29/24 13:53 Document 01/05/25 09:19 JF [id number] 01/05/25 09:21 JF 12/22/24 12/29/24 01/05/25 13:35 13:45 09:19 Wound Center Nurse 2 #1 R Calf cluster -Time 13:36 13:45 09:19 -Correct Patient Yes Yes Yes -Correct Side, Site, Position Yes Yes Yes -Correct Procedure Yes Yes Yes -Procedure Performed Yes Yes Yes -Type of Procedure Debridement Debridement Debridement -Clinical Debridement Subcutaneous Subcutaneous Subcutaneous -Tissue Removed Subcutaneous Subcutaneous Subcutaneous -Post Debridement (cm) - Length 0.5 2.5 3.0 -Post Debridement (cm) - Width 0.6 5.0 5.5 -Post Debridement (cm) - Depth 0.2 0.3 0.1 -Total Square (Post) (cm) 0.30 12.50 16.50 -Area of Debridement (cm) - Length 0.5 2.5 3.0 -Area of Debridement (cm) - Width 0.6 5.0 5.5 -Total Square (Area) (cm) 0.30 12.50 16.50 -Tunneling No No No -Undermining/Tunneling No No No -Circular Undermining No No No -Wound/Ulcer Outcome Not Healed Not Healed Not Healed -Ulcer Cleansing Rinsed/ Rinsed/ Rinsed/ Irrigated with Irrigated with Irrigated with Saline Saline Saline -Foul Odor after Cleansing No No No -Bioengineered Tissue No No No -Bleeding Controlled with Pressure Pressure Pressure -Treatment Response Procedure Procedure Procedure Tolerated Well Tolerated Well Tolerated Well -Offloading No No -Debridement - Subq, 1st 20sq cm Yes Yes Yes Pain Scale: 0-10 Numeric Is Patient Pain Free? Yes Yes Yes - Nurse 3 - General Ulcer D/C NN Start: 12/22/24 13:20 Freq: Status: Active Protocol: Activity Type Activity Date Activity User E-sign Co-sign Detail Recorded Client Recorded Date Recorded By Document 12/22/24 13:51 KW [id number] 12/22/24 13:51 KW Document 12/29/24 14:05 [facility] [id number] 12/29/24 14:06 [facility] Document 01/05/25 09:21 JF [id number] 01/05/25 09:29 JF 12/22/24 12/29/24 01/05/25 13:51 14:05 09:21 Wound Care Center Nurse 3 #1 R Calf cluster -Ulcer Cleansing Rinsed/ Rinsed/ Irrigated with Irrigated with Saline Saline -Foul Odor after Cleansing No No -Primary Dressing Applied Promogran Aquacel AG 4x4 Aquacel AG 4x4 Lenka Matter -Other Dressing abd pad -Primary Dressing Covered/Secured with Dry Gauze & Dry Gauze & Dry Gauze & Roll Gauze, Roll Gauze, Roll Gauze, Secured with Secured with Secured with Tape Tape Tape -Aquacel AG 4x4 2 1 -Promogran Lenka Matter 1 RLE -Tubular Bandage Single Layer Single Layer -Size of Tubigrip Used Size E Size F -Size E ($) 1 -Size F ($) 1 -Other pt puts his own compression on top Treatment Response Procedure Tolerated Well Pain Scale: 0-10 Numeric Is Patient Pain Free? 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 As above, he states that there has been some improvement since going on antibiotics. No changes at this time. Continue Aquacel Ag, Kerlix and gauze. Continue optimal protein and dietary intake. Continue other chronic wound care management as previously discussed by assistant football coach. His questions were answered and he was advised to let us know if he had any further questions or concerns. Follow-up in a week with assistant football coach or sooner if needed. This note was generated with [employer] dictation software. It may contain incorrectwords, spelling, and punctuation that were not noted in checking the note beforesigning. 01/05/25 1608 <Electronically signed by Phuong Ballard MD> Cosigner Signature (if applicable): CC: ~ Signed [facility] Work Phone: [phone]) 580-279509-25-2025 Progress note [facility] [address] [place] [address] Progress Note - Wound Care 01/05/25 0935 MR#: [id number] Acct: [id number] Name: STEPHANE TORIBIO Rep #:[id number] : 1960 64 From: Phuong cerda MD PCP: Dr. Abimael Elizabeth, DO Status:RE G RCR Location: History of Present Illness Date of Service: 01/05/25 Chief Complaint: Right calf nonhealing wound History of Wound: Mr. Stephane Toribio is a 64 y/o male who presents to the wound center today for ongoing management of his R posterior calf ulceration. He has previously been following with Chacha Dunham here but due to scheduling difficulties is seeing me for the next few weeks. He reports this calf ulcer has been present since around Mid-August, he really cannot pinpoint what may have provoked this. He does recall that remotely he hada thorny apple injure this calf and he subsequently had thorns/material come to the surface later on however he has not observed any such foreign material/body this time. He reports that initial treatment here was with a product that included silver and he felt he noticed improvement on that product; more recently it seems to have stalled a bit. He has some redness around the wound which he reports is fairly stable. He has not had increased pain. He reports mild drainage. He is not diabetic. He does not smoke. He has noticed some irritation around the wound edges which seems to correspond to where the adaptic contacts his skin. He has a R meniscus tear and had plans to proceed with arthroscopic interventionbut the wound must be healed in order for him to proceed. Progress of Wound: Courtesy visit: Being seen here for ulcer of right lower extremity. He states that since being on antibiotics, there has been some improvement. No new concerns reported at this time. Objective Data Objective Data Vital Signs: Vital Signs Temp Pulse Resp BP O2 Del Method 96.0 F L 69 14 151/70 H Room Air 01/05/25 09:08 01/05/25 09:08 01/05/25 09:08 01/05/25 09:08 12/29/24 13:31 Oxygen Delivery Method Room Air Lab / Micro Data Micro: Microbiology 12/22/24 13:36 Wound - Leg, Right Gram Stain - Final 12/22/24 13:36 Wound - Leg, Right Wound Culture - Final Staphylococcus aureus 12/22/24 13:36 Wound - Leg, Right Anaerobic Culture - Final No anaerobic bacteria isolated. Charges/Coding Procedures Integumentary 111xxx-113xx: 98798 Luisa subq tissue 20 sq cm/< Physical Exam Const alert, oriented x3 and no apparent distress General Appearance: cooperative and comfortable HEENT normocephalic, head/scalp atraumatic and hearing grossly normal bilaterally Eyes EOMs intact bilaterally General Eye: normal appearance of both eyes Neck full ROM General: normal visual inspection Resp normal respiratory effort Effort and Inspection: able to speak in complete sentences Extremity General Extremity: edema Skin Wounds: wounds noted size Size: See clinical note, bed granulating well and withslough, margins well approximated, no odor and surrounding erythema Neuro oriented x3, CN's II-XII intact bilaterally and moves all extremities Psych mental status grossly normal, thought process normal and cooperative Debridement Note Debridement Note Wound debrided: Right lower extremity (posterior/calf) Type of Debridement: Excisional debridement Anesthesia Used: 5% Lidocaine Gel Depth: in the subcutaneous layer Percentage of wound debrided: 100 Instrument Used: 5mm curette Tissue Removed: Slough and devitalized tissue Severity: Fat Layer Exposed Amount of bleeding with debridement: Mild Bleeding Controlled with: Pressure Patient tolerated procedure: Patient tolerated procedure well Post-Debridement Measurements and Additional Note: Post-Debridement Measurements/Treatment WC - Nurse 1 - General Ulcer Assessment Start: 12/22/24 13:20 Freq: Status: Active Protocol: LUIS ARMANDO Activity Type Activity Date Activity User E-sign Co-sign Detail Recorded Client Recorded Date Recorded By Document 12/22/24 13:20 KW [id number] 12/22/24 13:26 KW Document 12/29/24 13:31 KW [id number] 12/29/24 13:33 KW Document 01/05/25 09:08 ML [id number] 01/05/25 09:13 ML 12/22/24 12/29/24 01/05/25 13:20 13:31 09:08 - Today's Visit Information Type of service Follow-up Visit Follow-up Visit Follow-up Visit (Physician/STARCH TREATING ASSISTANT (Physician/STARCH TREATING ASSISTANT (Physician/STARCH TREATING ASSISTANT ) ) ) Arrival Mode Ambulatory Ambulatory Ambulatory Patient Identification Verified (Name & Yes Yes ) Patient Requires Transmission-Based No Precautions Vital Signs Temperature (97.8 F-99.1 F) 97.9 F 97.2 F L 96.0 F L Temperature Source Temporal Temporal Temporal Pulse Rate (60-100) 66 84 69 Pulse Location Monitor Monitor Monitor Respiratory Rate (12-18) 18 18 14 Respiratory rate source Observation Observation Observation Oxygen Delivery Method Room Air Room Air Blood Pressure (90/60-120/80) 140/73 H 142/93 H 151/70 H Blood Pressure Mean (mm Hg) 95 109 97 Source Monitor Monitor Monitor Position Semi-Fowlers Semi-Fowlers Sitting Blood Pressure Location Right Arm Left Arm Right Arm History Since Last Visit- (Skip if this is Patient's initial visit) Have you changed medications since your No No No last visit? Any new allergies or adverse reactions No No No Had a fall/change in ADL's that may No No No increase risk of falls Signs or symptoms of abuse and/or No No No neglect since last visit Have you been in the hospital since your No No No last visit? Has dressing in place as prescribed Yes Yes Yes Has compression in place as prescribed Yes Yes Yes Has offloadiing in place as prescribed N/A N/A N/A Experienced any changes in pain level or No No No management Left Footwear Regular Shoe Regular Shoe Right Footwear Regular Shoe Regular Shoe Pain Scale: 0-10 Numeric Is Patient Pain Free? Yes Yes Yes - Nurse 1 - General Ulcer Measurement Start: 12/22/24 13:20 Freq: Status: Active Protocol: Activity Type Activity Date Activity User E-sign Co-sign Detail Recorded Client Recorded Date Recorded By Document 12/22/24 13:20 KW [id number] 12/22/24 13:26 KW Edit Result 12/22/24 13:20 KW (1) [id number] 12/22/24 13:27 KW Document 12/29/24 13:31 KW [id number] 12/29/24 13:33 KW Document 01/05/25 09:08 ML [id number] 01/05/25 09:13 ML (1) Right Calf (cm) => 49.6 Right Ankle (cm) => 28.1 12/22/24 12/29/24 01/05/25 13:20 13:31 09:08 Wound Center Nurse 1 #1 R Calf cluster -Current Size (cm) - Length 0.6 3.6 2.5 -Current Size (cm) - Width 2.9 4 4.5 -Current Size (cm) - Depth 0.2 0.1 0.1 -Total Square Cm 1.74 14.4 03.07 -Date of Last Picture (Recall this 12/22/24 12/29/24 field) -Exudate Amt Medium Large -Exudate Type Serosanguineous Serosanguineous Serosanguineous -Wound Margin Distinct, Distinct, Outline Outline Attached Attached -Granulation Amt Large (67-100%) Medium (34-66%) -Granulation Quality Red Red -Slough/Fibrin Yes -Necrosis Amt Small (1-33%) Medium (34-66%) -Necrotic Tissue Type Adherent Slough Adherent Slough Adherent Slough -Texture (Za-wound Skin Appearance) Assessed Assessed,Rash Assessed -Moisture (Za-wound Skin Appearance) Assessed Assessed Assessed -Color (Za-wound Skin Appearance) Assessed Assessed, Assessed Erythema -Temperature (Za-wound Skin No Abnormality No Abnormality No Abnormality Appearance) (Pt Warm) (Pt Warm) (Pt Warm) -Tenderness on Palpation (Za-wound No No No Skin Appearance) -Ulcer Cleansing Rinsed/ Soap and Water Rinsed/ Irrigated with Irrigated with Saline Saline -Foul Odor after Cleansing No No No -Anesthetic Used 5% Lidocaine 5% Lidocaine 5% Lidocaine Gel Gel Gel Right Calf (cm) 49.6 Right Ankle (cm) 28.1 WC - Nurse 2 - General Ulcer CM Notes Start: 12/22/24 13:20 Freq: Status: Active Protocol: Activity Type Activity Date Activity User E-sign Co-sign Detail Recorded Client Recorded Date Recorded By Document 12/22/24 13:35 [id number] 12/22/24 13:38 Document 12/29/24 13:45 [id number] 12/29/24 13:53 Document 01/05/25 09:19 [id number] 01/05/25 09:21 JF 12/22/24 12/29/24 01/05/25 13:35 13:45 09:19 Wound Center Nurse 2 #1 R Calf cluster -Time 13:36 13:45 09:19 -Correct Patient Yes Yes Yes -Correct Side, Site, Position Yes Yes Yes -Correct Procedure Yes Yes Yes -Procedure Performed Yes Yes Yes -Type of Procedure Debridement Debridement Debridement -Clinical Debridement Subcutaneous Subcutaneous Subcutaneous -Tissue Removed Subcutaneous Subcutaneous Subcutaneous -Post Debridement (cm) - Length 0.5 2.5 3.0 -Post Debridement (cm) - Width 0.6 5.0 5.5 -Post Debridement (cm) - Depth 0.2 0.3 0.1 -Total Square (Post) (cm) 0.30 12.50 16.50 -Area of Debridement (cm) - Length 0.5 2.5 3.0 -Area of Debridement (cm) - Width 0.6 5.0 5.5 -Total Square (Area) (cm) 0.30 12.50 16.50 -Tunneling No No No -Undermining/Tunneling No No No -Circular Undermining No No No -Wound/Ulcer Outcome Not Healed Not Healed Not Healed -Ulcer Cleansing Rinsed/ Rinsed/ Rinsed/ Irrigated with Irrigated with Irrigated with Saline Saline Saline -Foul Odor after Cleansing No No No -Bioengineered Tissue No No No -Bleeding Controlled with Pressure Pressure Pressure -Treatment Response Procedure Procedure Procedure Tolerated Well Tolerated Well Tolerated Well -Offloading No No -Debridement - Subq, 1st 20sq cm Yes Yes Yes Pain Scale: 0-10 Numeric Is Patient Pain Free? Yes Yes Yes WC - Nurse 3 - General Ulcer D/C NN Start: 12/22/24 13:20 Freq: Status: Active Protocol: Activity Type Activity Date Activity User E-sign Co-sign Detail Recorded Client Recorded Date Recorded By Document 12/22/24 13:51 KW [id number] 12/22/24 13:51 Document 12/29/24 14:05 [facility] [id number] 12/29/24 14:06 [facility] Document 01/05/25 09:21 JF [id number] 01/05/25 09:29 JF 12/22/24 12/29/24 01/05/25 13:51 14:05 09:21 Wound Care Center Nurse 3 #1 R Calf cluster -Ulcer Cleansing Rinsed/ Rinsed/ Irrigated with Irrigated with Saline Saline -Foul Odor after Cleansing No No -Primary Dressing Applied Promogran Aquacel AG 4x4 Aquacel AG 4x4 Lenka Matter -Other Dressing abd pad -Primary Dressing Covered/Secured with Dry Gauze & Dry Gauze & Dry Gauze & Roll Gauze, Roll Gauze, Roll Gauze, Secured with Secured with Secured with Tape Tape Tape -Aquacel AG 4x4 2 1 -Promogran Lenka Matter 1 RLE -Tubular Bandage Single Layer Single Layer -Size of Tubigrip Used Size E Size F -Size E ($) 1 -Size F ($) 1 -Other pt puts his own compression on top Treatment Response Procedure Tolerated Well Pain Scale: 0-10 Numeric Is Patient Pain Free? 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 As above, he states that there has been some improvement since going on antibiotics. No changes at this time. Continue Aquacel Ag, Kerlix and gauze. Continue optimal protein and dietary intake. Continue other chronic wound care management as previously discussed by assistant football coach. His questions were answered and he was advisedto let us know if he had any further questions or concerns. Follow-up in a week with assistant football coach or sooner if needed. This note was generated with [employer] software. It may contain incorrectwords, spelling, and punctuation that were not noted in checking the note beforesigning. 01/05/25 4301 Cosigner Signature (if applicable): CC: ~ Signed [facility]09-25-2025 Telephone encounter Note* Telephone Encounter - Lisa Khan - 01/05/2025 12:19 PM EDT Error [id number] Miscellaneous Notes* Telephone Encounter - Lisa Khan - 01/05/2025 12:19 PM EDT Error documented in this encounterSMansfield [id number] Telephone encounter Note* Telephone Encounter - Lisa Khan - 01/05/2025 11:58 AM EDT I have started the auth for the MRI to see if we can move WENDY appt before jan. [id number] Miscellaneous Notes* Telephone Encounter - Lisa Khan - 01/05/2025 11:58 AM EDT I have started the auth for the MRI to see if we can move WENDY appt before jan. 1 * Telephone Encounter - Alvarez Wharton - 01/05/2025 10:18 AM EDT Patient called in advising returning call to [facility]. Patient made aware of MRI date, time, location. Patient again stated that starting 01/11/25 will have Medicare A and B. Patient has not yet received card. * Telephone Encounter - Reji Maradiaga MD - 01/05/2025 7:05 AM EDT MRI ordered * Telephone Encounter - Nidhi Cary RN - 01/05/2025 7:00 AM EDT Pt is agreeable to prostate MRI see [employer] for Good messages * Telephone Encounter - Chyna Patiño RN - 01/04/2025 8:13 AM EDT LM to return call or see [email or web address] for test result. * Telephone Encounter - Reji Maradiaga MD - 01/03/2025 10:49 PM EDT PSA 9.530 - lower than April, but still higher than 2023 I feel that prostate MRI is next step. If he agrees, then I will place order documented in this encounterSMansfield [id number] Telephone encounter Note* Telephone Encounter - Alvarez Wharton - 01/05/2025 10:18 AM EDT Patient called in advising returning call to [facility]. Patient made aware of MRI date, time, location. Patient again stated that starting 01/11/25 will have Medicare A and B. Patient has not yet received card. [id number] Telephone encounter Note* Telephone Encounter - Lisa Khan - 01/05/2025 8:15 AM EDT UROLOGY MRI QUESTIONNAIRE: Patients time preference for MRI? AM MRI Facility location preference? [facility] Is the patient claustrophobic? no Does the patient have metal in their body? yes - hand Has the patient ever worked with equipment that could leave fragments in their eyes (welding, grinding, etc.)? no Is there a possibility of any metal in the patients eyes? no Is the patient on dialysis? no Has the patient had a hip replacement? no Does the patient have a Mediport? no Patients height? Ht Readings from Last 1 Encounters: 01/01/24 5' 10 (1.778 m) Patients weight? Wt Readings from Last 1 Encounters: 01/01/24 (!) 330 lb (150 kg) [id number] Miscellaneous Notes* Telephone Encounter - Lisa Khan - 01/05/2025 8:15 AM EDT UROLOGY MRI QUESTIONNAIRE: Patients time preference for MRI? AM MRI Facility location preference? [facility] Is the patient claustrophobic? no Does the patient have metal in their body? yes - hand Has the patient ever worked with equipment that could leave fragments in their eyes (welding, grinding, etc.)? no Is there a possibility of any metal in the patients eyes? no Is the patient on dialysis? no Has the patient had a hip replacement? no Does the patient have a Mediport? no Patients height? Ht Readings from Last 1 Encounters: 01/01/24 5' 10 (1.778 m) Patients weight? Wt Readings from Last 1 Encounters: 01/01/24 (!) 330 lb (150 kg) documented in this encounterSMansfield [id number] Telephone encounter Note* Telephone Encounter - Reji Maradiaga MD - 01/05/2025 7:05 AM EDT MRI ordered [id number] Telephone encounter Note* Telephone Encounter - Nidhi Cary RN - 01/05/2025 7:00 AM EDT Pt is agreeable to prostate MRI see Gaming for Good messages [id number] Telephone encounter Note* Telephone Encounter - Chyna Patiño RN - 01/04/2025 8:13 AM EDT LM to return call or see mychart for test result. [facility] [id number] Telephone encounter Note* Telephone Encounter - Reji Maradiaga MD - 01/03/2025 10:49 PM EDT PSA 9.530 - lower than April, but still higher than 2023 I feel that prostate MRI is next step. If he agrees, then I will place order [facility] [id number] History of Present illness Narrative* Reji Maradiaga MD - 01/02/2025 1:40 PM EDT Images from the original note were not included. Reji Maradiaga MD 01/02/2025 at 4:07 PM OFFICE FOLLOW-UP VISIT PATIENT NAME: Stephane Toribio DATE OF : 1960 TODAY'S DATE: 01/02/2025 CHIEF COMPLAINT: Chief Complaint Patient presents with Other Annual follow up, bph, would like to discuss testosterone for lethargy Sometimes where I can't get anything out, unsure of emptying, dribbling stream Nocturia x1-2, denies hematuria and dysuria Subjective: Mr. Toribio is a 64 y.o. male who presents to the office for follow up of worsening LUTS. See below for past history. Increased frequency. Review of Systems Past Medical History: Medical History[1] Past Surgical History: Surgical History[2] Allergies: Dust mite extract Social History: Issues identified in the H&P were noted Family History: Family History[3] Medications Prior to Admission medications Medication Sig Start Date End Date Taking? Authorizing Provider gentamicin (Garamycin) 0.1 % ointment Apply 1 Application topically daily. 12/22/24 Yes Historical Provider, linezolid (Zyvox) 600 MG tablet Take 600 mg by mouth 2 times daily. 12/29/24 01/12/25 Yes Historical Provider, tamsulosin (Flomax) 0.4 MG 24 hr capsule 2 capsules Every 24 hours. 02/13/24 Yes Historical Provider, acetaminophen (Tylenol) 325 MG tablet Take 650 mg by mouth. Historical Provider, aspirin 81 MG EC tablet Take 81 mg by mouth in the morning. Historical Provider, b complex vitamins capsule Take 1 capsule by mouth. Historical Provider, Bacillus Coagulans-Inulin (Probiotic) 1-250 BILLION-MG capsule Take by mouth. Historical ProviderMD cholecalciferol (Vitamin D-3) 50 MCG (2000 UT) capsule Take 5,000 Units by mouth. Historical Provider, esomeprazole (NexIUM) [address] capsule Take 40 mg by mouth. Historical Provider, finasteride (Proscar) 5 MG tablet Take 1 tablet (5 mg) by mouth daily. 01/02/25 04/02/25 Reji Maradiaga MD fluticasone (Flonase) 50 MCG/ACT nasal spray 1 spray. Historical Provider, lisinopril 20 MG tablet Take 20 mg by mouth. Historical Provider, loratadine (Claritin) 10 MG tablet Take 10 mg by mouth daily. Historical Provider, melatonin 5 MG tablet Take 5 mg by mouth. Historical Provider, Misc Natural Products (Prostate Health) capsule Take by mouth. Historical Provider, montelukast (Singulair) 10 MG tablet Take 10 mg by mouth Nightly. Historical Provider, Multiple Vitamin (Multi-Vitamin) tablet Take 1 tablet by mouth in the morning. Historical ProviderMD naproxen (Naprosyn) 500 MG tablet Take 500 mg by mouth every 12 hours as needed. With food or milk Historical ProviderMD omega-3 (Fish Oil) 1200 MG capsule Take 1,200 mg by mouth. Historical Provider, omega-3 acid ethyl esters (Lovaza) 1 g capsule 2 tablets Every 24 hours. Historical ProviderMD Probiotic Product (Probiotic Blend) capsule Every 24 hours. Historical Provider, sildenafil (Viagra) 100 MG tablet take 1/2 to 1 tablet by mouth once daily if needed 04/17/22 Historical ProviderMD tamsulosin (Flomax) 0.4 MG 24 hr capsule Take 1 capsule (0.4 mg) by mouth 2 times daily. Take 30 minutes after a meal. 01/02/25 04/02/25 Reji Maradiaga MD tamsulosin (Flomax) 0.4 MG 24 hr capsule Take 1 capsule (0.4 mg) by mouth 2 times daily. Take 30 minutes after a meal. 01/01/24 01/02/25 Reji Maradiaga MD triamcinolone (Kenalog) 0.1 % cream Apply 1 Application topically 2 times daily. 04/20/23 01/02/25 Historical Provider, Vitals: BP 139/78 (BP Location: Left arm, Patient Position: Sitting, BP Cuff Size: Adult long) Pulse 60 Physical Exam Physical Exam Constitutional: Appearance: Normal appearance. HENT: Head: Normocephalic and atraumatic. Eyes: Extraocular Movements: Extraocular movements intact. Pulmonary: Effort: Pulmonary effort is normal. Musculoskeletal: General: Normal range of motion. Cervical back: Normal range of motion. Neurological: General: No focal deficit present. Mental Status: He is alert and oriented to person, place, and time. Psychiatric: Mood and Affect: Mood normal. Behavior: Behavior normal. Thought Content: Thought content normal. Judgment: Judgment normal. LABS: Lab Results Component Value Date PSA 4.588 (H) 05/02/2022 PSA 4.256 (A) 10/24/2021 PSA 3.523 09/20/2019 Lab Results Component Value Date TESTOSTERONE 391 05/13/2022 Lab Results Component Value Date WBC 5.7 04/17/2023 HGB 13.1 04/17/2023 HCT 39.9 (L) 04/17/2023 MCV 86.2 04/17/2023 PLT 216 04/17/2023 Lab Results Component Value Date GLUCOSE 99 04/17/2023 CALCIUM 9.4 04/17/2023 NA 139 04/17/2023 K 4.5 04/17/2023 CO2 24 04/17/2023 CL 108 (H) 04/17/2023 BUN 23 (H) 04/17/2023 CREATININE 1.35 (H) 04/17/2023 Radiology: PVR 48 ml Impression/Plan Stephane was seen today for other. Diagnoses and all orders for this visit: Incomplete bladder emptying (Primary) - Bladder scan Nocturia Frequency of urination Benign prostatic hyperplasia with nocturia Elevated PSA Follow up in about 1 year (around 01/02/2026). Rx finasteride I have discussed this patient's medical conditions with them. Treatment options have been discussed. Potential risks & side-effects have been discussed. I feel that the patient will benefit from the medications that I have prescribed. We will evaluate the effectiveness of this regimen. Order given to repeat PSA Reji Maradiaga MD 01/02/25 4:07 PM [place] ( of [facility]). Brother: Dr. Froylan Toribio. Nephew: Dr. Vaughn (ortho) 01/02/2025: PVR 48 ml. Worse LUTS. Add finasteride. PSA ordered 01/01/2024: PVR 13 ml. Nocturia x 1-2, variable stream. Refilled tamsulosin BID. PSA is decreasing. 06/15/2023: OV RAMON: PVR 124 ml. Increase tamsulosin to BID 12/19/2022: TRUS/Bx ([place], 177 ml): benign PSA 04/18/2024: PSA: 10.300 12/18/2023: PSA: 5.480 10/09/2023: PSA: 8.670 ([place]) 04/20/2023: PSA: 7.200 w/ 31% free PSA ([place]) 11/28/2022: PSA: 7.440 10/31/2022: PSA: 6.670 05/02/2022: PSA: 4.588 10/24/2021: PSA: 4.256 09/20/2019: PSA: 3.523 [1] Past Medical History: Diagnosis Date Benign prostatic hyperplasia 3 or 4 years ago Elevated PSA Late 2020 Erectile dysfunction Summer 2020 H/O exercise stress test Hypertension MACY on CPAP Osteomyelitis (HCC) RIGHT RING FINGER AND SCHEDULED FOR THE SURGERY ON 03/05/20 AT [facility]ERY [facility] [2] Past Surgical History: Procedure Laterality Date CHOLECYSTECTOMY [facility] COLONOSCOPY COLONOSCOPY FINGER AMPUTATION Right 03/05/2020 right small finger -dr jackson FINGER SURGERY Left [facility] FINGER SURGERY Left 02/20/2023 Mucous cyst excision long finger with with simple primary closure. arthrotomy DIP joint long fingerwith excision of osteophytes. Dr Jackson OTHER SURGICAL HISTORY EXCISION OF LIPOMA FROM THE BACK AT SURGERY [facility] LONG TIME AGO SCAPHOID FRACTURE SURGERY Right [facility] WISDOM TOOTH EXTRACTION [3] Family History Problem Relation Name Age of Onset Arthritis Mother Rachel Toribio Arthritis Father Franki Toribio Hearing loss Father Franki Toribio documented in this encounterSumma [id number] Progress note Author Yola Sepulveda [facility] Note Date/Time December 30, 2024 8:54am [facility] [address] [place] [address] Progress Note - Wound Care 12/29/24 1626 MR#: [id number] Acct: [id number] Name: STEPHANE TORIBIO Rep #:[id number] : 1960 64 From: Yola STEVENSON PCP: Dr. Abimael Elizabeth, DO Status:RE G RCR Location: History of Present Illness Date of Service: 12/29/24 Chief Complaint: Right calf nonhealing wound History of Wound: Mr. Stephane Toribio is a 64 y/o male who presents to the wound center today for ongoing management of his R posterior calf ulceration. He has previously been following with Chacha Dunham here but due to scheduling difficulties is seeing me for the next few weeks. He reports this calf ulcer has been present since around Mid-August, he really cannot pinpoint what may have provoked this. He does recall that remotely he hada thorny apple injure this calf and he subsequently had thorns/material come to the surface later on however he has not observed any such foreign material/body this time. He reports that initial treatment here was with a product that included silver and he felt he noticed improvement on that product; more recently it seems to have stalled a bit. He has some redness around the wound which he reports is fairly stable. He has not had increased pain. He reports mild drainage. He is not diabetic. He does not smoke. He has noticed some irritation around the wound edges which seems to correspond to where the adaptic contacts his skin. He has a R meniscus tear and had plans to proceed with arthroscopic interventionbut the wound must be healed in order for him to proceed. Subjective Subjective Unfortunately, the wound has continued to look worse over this last week despitechanging the dressings so it would appear the worsened appearance is more likelydue to infection vs contact dermatitis. His wound cultures did grow 1+ staph bacteria which is resistant to many usual oral antibiotics and unfortunately thegentamicin does not have good activity against it either. Objective Data Objective Data Vital Signs: Vital Signs Temp Pulse Resp BP O2 Del Method 97.2 F L 84 18 142/93 H Room Air 12/29/24 13:31 12/29/24 13:31 12/29/24 13:31 12/29/24 13:31 12/29/24 13:31 Oxygen Delivery Method Room Air Lab / Micro Data Micro: Microbiology 12/22/24 13:36 Wound - Leg, Right Gram Stain - Final 12/22/24 13:36 Wound - Leg, Right Wound Culture - Final Staphylococcus aureus 12/22/24 13:36 Wound - Leg, Right Anaerobic Culture - Final No anaerobic bacteria isolated. Charges/Coding Procedures Integumentary 111xxx-113xx: 29305 Luisa subq tissue 20 sq cm/< Physical Exam Const alert, oriented x3 and no apparent distress General Appearance: cooperative and comfortable HEENT normocephalic, head/scalp atraumatic, hearing grossly normal bilaterally, external ears normal and external nose normal Eyes General Eye: normal appearance of both eyes Neck General: normal visual inspection Resp Effort and Inspection: able to speak in complete sentences; Negative for labored, grunting or stridor Extremity Extremity Narrative: Trace edema bilateral lower extremities; spider veins bilaterally without any prominent larger varicosities, no significant hemosiderin deposition or lipodermatosclerosis. Skin Wound Narrative: R posterior calf ulceration with red/pink granular base without significant bioburden/slough. There is increased skin breakdown in the previously dermatiticperiwound area Debridement Note Debridement Note Wound debrided: R posterior calf Laterality: Right Type of Debridement: Selective debridement Anesthesia Used: 5% Lidocaine Gel Depth: Down to and including healthy tissue Percentage of wound debrided: 100 Instrument Used: 3mm curette Tissue Removed: slough, bioburden Severity: Fat Layer Exposed Amount of bleeding with debridement: None Patient tolerated procedure: Patient tolerated procedure well Post-Debridement Measurements and Additional Note: Post-Debridement Measurements/Treatment WC - Nurse 1 - General Ulcer Assessment Start: 12/22/24 13:20 Freq: Status: Active Protocol: LUIS ARMANDO Activity Type Activity Date Activity User E-sign Co-sign Detail Recorded Client Recorded Date Recorded By Document 12/22/24 13:20 KW [id number] 12/22/24 13:26 KW Document 12/29/24 13:31 KW [id number] 12/29/24 13:33 KW 12/22/24 12/29/24 13:20 13:31 - Today's Visit Information Type of service Follow-up Visit Follow-up Visit (Physician/STARCH TREATING ASSISTANT (Physician/STARCH TREATING ASSISTANT ) ) Arrival Mode Ambulatory Ambulatory Patient Identification Verified (Name & Yes ) Vital Signs Temperature (97.8 F-99.1 F) 97.9 F 97.2 F L Temperature Source Temporal Temporal Pulse Rate (60-100) 66 84 Pulse Location Monitor Monitor Respiratory Rate (12-18) 18 18 Respiratory rate source Observation Observation Oxygen Delivery Method Room Air Room Air Blood Pressure (90/60-120/80) 140/73 H 142/93 H Blood Pressure Mean (mm Hg) 95 109 Source Monitor Monitor Position Semi-Fowlers Semi-Fowlers Blood Pressure Location Right Arm Left Arm History Since Last Visit- (Skip if this is Patient's initial visit) Have you changed medications since your No No last visit? Any new allergies or adverse reactions No No Had a fall/change in ADL's that may No No increase risk of falls Signs or symptoms of abuse and/or No No neglect since last visit Have you been in the hospital since your No No last visit? Has dressing in place as prescribed Yes Yes Has compression in place as prescribed Yes Yes Has offloadiing in place as prescribed N/A N/A Experienced any changes in pain level or No No management Left Footwear Regular Shoe Regular Shoe Right Footwear Regular Shoe Regular Shoe Pain Scale: 0-10 Numeric Is Patient Pain Free? Yes Yes - Nurse 1 - General Ulcer Measurement Start: 12/22/24 13:20 Freq: Status: Active Protocol: Activity Type Activity Date Activity User E-sign Co-sign Detail Recorded Client Recorded Date Recorded By Document 12/22/24 13:20 KW [id number] 12/22/24 13:26 KW Edit Result 12/22/24 13:20 KW (1) [id number] 12/22/24 13:27 KW Document 12/29/24 13:31 KW [id number] 12/29/24 13:33 KW (1) Right Calf (cm) => 49.6 Right Ankle (cm) => 28.1 12/22/24 12/29/24 13:20 13:31 Wound Center Nurse 1 #1 R Calf cluster -Current Size (cm) - Length 0.6 3.6 -Current Size (cm) - Width 2.9 4 -Current Size (cm) - Depth 0.2 0.1 -Total Square Cm 1.74 14.4 -Date of Last Picture (Recall this 12/22/24 12/29/24 field) -Exudate Amt Medium Large -Exudate Type Serosanguineous Serosanguineous -Wound Margin Distinct, Distinct, Outline Outline Attached Attached -Granulation Amt Large (67-100%) Medium (34-66%) -Granulation Quality Red Red -Necrosis Amt Small (1-33%) Medium (34-66%) -Necrotic Tissue Type Adherent Slough Adherent Slough -Texture (Za-wound Skin Appearance) Assessed Assessed,Rash -Moisture (Za-wound Skin Appearance) Assessed Assessed -Color (Za-wound Skin Appearance) Assessed Assessed, Erythema -Temperature (Za-wound Skin No Abnormality No Abnormality Appearance) (Pt Warm) (Pt Warm) -Tenderness on Palpation (Za-wound No No Skin Appearance) -Ulcer Cleansing Rinsed/ Soap and Water Irrigated with Saline -Foul Odor after Cleansing No No -Anesthetic Used 5% Lidocaine 5% Lidocaine Gel Gel Right Calf (cm) 49.6 Right Ankle (cm) 28.1 WC - Nurse 2 - General Ulcer CM Notes Start: 12/22/24 13:20 Freq: Status: Active Protocol: Activity Type Activity Date Activity User E-sign Co-sign Detail Recorded Client Recorded Date Recorded By Document 12/22/24 13:35 [id number] 12/22/24 13:38 Document 12/29/24 13:45 [id number] 12/29/24 13:53 12/22/24 12/29/24 13:35 13:45 Wound Center Nurse 2 #1 R Calf cluster -Time 13:36 13:45 -Correct Patient Yes Yes -Correct Side, Site, Position Yes Yes -Correct Procedure Yes Yes -Procedure Performed Yes Yes -Type of Procedure Debridement Debridement -Clinical Debridement Subcutaneous Subcutaneous -Tissue Removed Subcutaneous Subcutaneous -Post Debridement (cm) - Length 0.5 2.5 -Post Debridement (cm) - Width 0.6 5.0 -Post Debridement (cm) - Depth 0.2 0.3 -Total Square (Post) (cm) 0.30 12.50 -Area of Debridement (cm) - Length 0.5 2.5 -Area of Debridement (cm) - Width 0.6 5.0 -Total Square (Area) (cm) 0.30 12.50 -Tunneling No No -Undermining/Tunneling No No -Circular Undermining No No -Wound/Ulcer Outcome Not Healed Not Healed -Ulcer Cleansing Rinsed/ Rinsed/ Irrigated with Irrigated with Saline Saline -Foul Odor after Cleansing No No -Bioengineered Tissue No No -Bleeding Controlled with Pressure Pressure -Treatment Response Procedure Procedure Tolerated Well Tolerated Well -Offloading No -Debridement - Subq, 1st 20sq cm Yes Yes Pain Scale: 0-10 Numeric Is Patient Pain Free? Yes Yes - Nurse 3 - General Ulcer D/C NN Start: 12/22/24 13:20 Freq: Status: Active Protocol: Activity Type Activity Date Activity User E-sign Co-sign Detail Recorded Client Recorded Date Recorded By Document 12/22/24 13:51 [id number] 12/22/24 13:51 Document 12/29/24 14:05 [facility] [id number] 12/29/24 14:06 [facility] 12/22/24 12/29/24 13:51 14:05 Wound Care Center Nurse 3 #1 R Calf cluster -Ulcer Cleansing Rinsed/ Irrigated with Saline -Foul Odor after Cleansing No -Primary Dressing Applied Promogran Aquacel AG 4x4 Lenka Matter -Other Dressing abd pad -Primary Dressing Covered/Secured with Dry Gauze & Dry Gauze & Roll Gauze, Roll Gauze, Secured with Secured with Tape Tape -Aquacel AG 4x4 2 -Promogran Lenka Matter 1 RLE -Tubular Bandage Single Layer -Size of Tubigrip Used Size E -Size E ($) 1 -Other pt puts his own compression on top Treatment Response Procedure Tolerated Well Pain Scale: 0-10 Numeric Is Patient Pain Free? 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 Per C&S results, will prescribe Linezolid x 14 days. Iadvise taking probiotics as well. For wound care: (1) Cleanse the area with soap and water, pat to dry (2) Apply Aquacel (4) Apply dry gazue dressing/ABD pad and then Kerlix wrap, tape dressingto itself instead of skin (4) Change every other day if the area remains clean and dry, change more often as needed if it becomes soaked or soiled. Continue to utilize compression stockings daily. We will consider venous dopplerin the future. Plan for courtesy visit as I am out next week and then return to see me in 2 weeks. 12/30/24 0846 <Electronically signed by Yola STEVENSON> Cosigner Signature (if applicable): CC: ~ Signed [facility] Work Phone: [phone]) 487-727209-19-2025 Progress note [facility] [address] [place] [address] Progress Note - Wound Care 12/29/24 1626 MR#: [id number] Acct: [id number] Name: STEPHANE TORIBIO Rep #:[id number] : 1960 64 From: Yola STEVENSON PCP: Dr. Abimael Elizabeth, DO Status:RE G RCR Location: History of Present Illness Date of Service: 12/29/24 Chief Complaint: Right calf nonhealing wound History of Wound: Mr. Stephane Toribio is a 64 y/o male who presents to the wound center today for ongoing management of his R posterior calf ulceration. He has previously been following with Chacha Dunham here but due to scheduling difficulties is seeing me for the next few weeks. He reports this calf ulcer has been present since around Mid-August, he really cannot pinpoint what may have provoked this. He does recall that remotely he hada thorny apple injure this calf and he subsequently had thorns/material come to the surface later on however he has not observed any such foreign material/body this time. He reports that initial treatment here was with a product that included silver and he felt he noticed improvement on that product; more recently it seems to have stalled a bit. He has some redness around the wound which he reports is fairly stable. He has not had increased pain. He reports mild drainage. He is not diabetic. He does not smoke. He has noticed some irritation around the wound edges which seems to correspond to where the adaptic contacts his skin. He has a R meniscus tear and had plans to proceed with arthroscopic interventionbut the wound must be healed in order for him to proceed. Subjective Subjective Unfortunately, the wound has continued to look worse over this last week despitechanging the dressings so it would appear the worsened appearance is more likelydue to infection vs contact dermatitis.His wound cultures did grow 1+ staph bacteria which is resistant to many usual oral antibiotics and unfortunately thegentamicin does not have good activity against it either. Objective Data Objective Data Vital Signs: Vital Signs Temp Pulse Resp BP O2 Del Method 97.2 F L 84 18 142/93 H Room Air 12/29/24 13:31 12/29/24 13:31 12/29/24 13:31 12/29/24 13:31 12/29/24 13:31 Oxygen Delivery Method Room Air Lab / Micro Data Micro: Microbiology 12/22/24 13:36 Wound - Leg, Right Gram Stain - Final 12/22/24 13:36 Wound - Leg, Right Wound Culture - Final Staphylococcus aureus 12/22/24 13:36 Wound - Leg, Right Anaerobic Culture - Final No anaerobic bacteria isolated. Charges/Coding Procedures Integumentary 111xxx-113xx: 81736 Luisa subq tissue 20 sq cm/< Physical Exam Const alert, oriented x3 and no apparent distress General Appearance: cooperative and comfortable HEENT normocephalic, head/scalp atraumatic, hearing grossly normal bilaterally, external ears normal and external nose normal Eyes General Eye: normal appearance of both eyes Neck General: normal visual inspection Resp Effort and Inspection: able to speak in complete sentences; Negative for labored, grunting or stridor Extremity Extremity Narrative: Trace edema bilateral lower extremities; spider veins bilaterally without any prominent larger varicosities, no significant hemosiderin deposition or lipodermatosclerosis. Skin Wound Narrative: R posterior calf ulceration with red/pink granular base without significant bioburden/slough. Thereis increased skin breakdown in the previously dermatiticperiwound area Debridement Note Debridement Note Wound debrided: R posterior calf Laterality: Right Type of Debridement: Selective debridement Anesthesia Used: 5% Lidocaine Gel Depth: Down to and including healthy tissue Percentage of wound debrided: 100 Instrument Used: 3mm curette Tissue Removed: slough, bioburden Severity: Fat Layer Exposed Amount of bleeding with debridement: None Patient tolerated procedure: Patient tolerated procedure well Post-Debridement Measurements and Additional Note: Post-Debridement Measurements/Treatment - Nurse 1 - General Ulcer Assessment Start: 12/22/24 13:20 Freq: Status: Active Protocol: LUIS ARMANDO Activity Type Activity Date Activity User E-sign Co-sign Detail Recorded Client Recorded Date Recorded By Document 12/22/24 13:20 KW [id number] 12/22/24 13:26 KW Document 12/29/24 13:31 KW [id number] 12/29/24 13:33 KW 12/22/24 12/29/24 13:20 13:31 WC - Today's Visit Information Type of service Follow-up Visit Follow-up Visit (Physician/STARCH TREATING ASSISTANT (Physician/STARCH TREATING ASSISTANT ) ) Arrival Mode Ambulatory Ambulatory Patient Identification Verified (Name & Yes ) Vital Signs Temperature (97.8 F-99.1 F) 97.9 F 97.2 F L Temperature Source Temporal Temporal Pulse Rate (60-100) 66 84 Pulse Location Monitor Monitor Respiratory Rate (12-18) 18 18 Respiratory rate source Observation Observation Oxygen Delivery Method Room Air Room Air Blood Pressure (90/60-120/80) 140/73 H 142/93 H Blood Pressure Mean (mm Hg) 95 109 Source Monitor Monitor Position Semi-Fowlers Semi-Fowlers Blood Pressure Location Right Arm Left Arm History Since Last Visit- (Skip if this is Patient's initial visit) Have you changed medications since your No No last visit? Any new allergies or adverse reactions No No Had a fall/change in ADL's that may No No increase risk of falls Signs or symptoms of abuse and/or No No neglect since last visit Have you been in the hospital since your No No last visit? Has dressing in place as prescribed Yes Yes Has compression in place as prescribed Yes Yes Has offloadiing in place as prescribed N/A N/A Experienced any changes in pain level or No No management Left Footwear Regular Shoe Regular Shoe Right Footwear Regular Shoe Regular Shoe Pain Scale: 0-10 Numeric Is Patient Pain Free? Yes Yes VISHNU - Nurse 1 - General Ulcer Measurement Start: 12/22/24 13:20 Freq: Status: Active Protocol: Activity Type Activity Date Activity User E-sign Co-sign Detail Recorded Client Recorded Date Recorded By Document 12/22/24 13:20 KW [id number] 12/22/24 13:26 KW Edit Result 12/22/24 13:20 KW (1) [id number] 12/22/24 13:27 KW Document 12/29/24 13:31 KW [id number] 12/29/24 13:33 KW (1) Right Calf (cm) => 49.6 Right Ankle (cm) => 28.1 12/22/24 12/29/24 13:20 13:31 Wound Center Nurse 1 #1 R Calf cluster -Current Size (cm) - Length 0.6 3.6 -Current Size (cm) - Width 2.9 4 -Current Size (cm) - Depth 0.2 0.1 -Total Square Cm 1.74 14.4 -Date of Last Picture (Recall this 12/22/24 12/29/24 field) -Exudate Amt Medium Large -Exudate Type Serosanguineous Serosanguineous -Wound Margin Distinct, Distinct, Outline Outline Attached Attached -Granulation Amt Large (67-100%) Medium (34-66%) -Granulation Quality Red Red -Necrosis Amt Small (1-33%) Medium (34-66%) -Necrotic Tissue Type Adherent Slough Adherent Slough -Texture (Za-wound Skin Appearance) Assessed Assessed,Rash -Moisture (Za-wound Skin Appearance) Assessed Assessed -Color (Za-wound Skin Appearance) Assessed Assessed, Erythema -Temperature (Za-wound Skin No Abnormality No Abnormality Appearance) (Pt Warm) (Pt Warm) -Tenderness on Palpation (Za-wound No No Skin Appearance) -Ulcer Cleansing Rinsed/ Soap and Water Irrigated with Saline -Foul Odor after Cleansing No No -Anesthetic Used 5% Lidocaine 5% Lidocaine Gel Gel Right Calf (cm) 49.6 Right Ankle (cm) 28.1 WC - Nurse 2 - General Ulcer CM Notes Start: 12/22/24 13:20 Freq: Status: Active Protocol: Activity Type Activity Date Activity User E-sign Co-sign Detail Recorded Client Recorded Date Recorded By Document 12/22/24 13:35 GM [id number] 12/22/24 13:38 GM Document 12/29/24 13:45 GM [id number] 12/29/24 13:53 12/22/24 12/29/24 13:35 13:45 Wound Center Nurse 2 #1 R Calf cluster -Time 13:36 13:45 -Correct Patient Yes Yes -Correct Side, Site, Position Yes Yes -Correct Procedure Yes Yes -Procedure Performed Yes Yes -Type of Procedure Debridement Debridement -Clinical Debridement Subcutaneous Subcutaneous -Tissue Removed Subcutaneous Subcutaneous -Post Debridement (cm) - Length 0.5 2.5 -Post Debridement (cm) - Width 0.6 5.0 -Post Debridement (cm) - Depth 0.2 0.3 -Total Square (Post) (cm) 0.30 12.50 -Area of Debridement (cm) - Length 0.5 2.5 -Area of Debridement (cm) - Width 0.6 5.0 -Total Square (Area) (cm) 0.30 12.50 -Tunneling No No -Undermining/Tunneling No No -Circular Undermining No No -Wound/Ulcer Outcome Not Healed Not Healed -Ulcer Cleansing Rinsed/ Rinsed/ Irrigated with Irrigated with Saline Saline -Foul Odor after Cleansing No No -Bioengineered Tissue No No -Bleeding Controlled with Pressure Pressure -Treatment Response Procedure Procedure Tolerated Well Tolerated Well -Offloading No -Debridement - Subq, 1st 20sq cm Yes Yes Pain Scale: 0-10 Numeric Is Patient Pain Free? Yes Yes - Nurse 3 - General Ulcer D/C NN Start: 12/22/24 13:20 Freq: Status: Active Protocol: Activity Type Activity Date Activity User E-sign Co-sign Detail Recorded Client Recorded Date Recorded By Document 12/22/24 13:51 [id number] 12/22/24 13:51 Document 12/29/24 14:05 [facility] [id number] 12/29/24 14:06 [facility] 12/22/24 12/29/24 13:51 14:05 Wound Care Center Nurse 3 #1 R Calf cluster -Ulcer Cleansing Rinsed/ Irrigated with Saline -Foul Odor after Cleansing No -Primary Dressing Applied Promogran Aquacel AG 4x4 Lenka Matter -Other Dressing abd pad -Primary Dressing Covered/Secured with Dry Gauze & Dry Gauze & Roll Gauze, Roll Gauze, Secured with Secured with Tape Tape -Aquacel AG 4x4 2 -Promogran Lenka Matter 1 RLE -Tubular Bandage Single Layer -Size of Tubigrip Used Size E -Size E ($) 1 -Other pt puts his own compression on top Treatment Response Procedure Tolerated Well Pain Scale: 0-10 Numeric Is Patient Pain Free? 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 Per C&S results, will prescribe Linezolid x 14 days. Iadvise taking probiotics as well. For wound care: (1) Cleanse the area with soap and water, pat to dry (2) Apply Aquacel (4) Apply dry gazue dressing/ABD pad and then Kerlix wrap, tape dressingto itself instead of skin (4) Change every other day if the area remains clean and dry, change more often as needed if it becomes soaked or soiled. Continue to utilize compression stockings daily. We will consider venous dopplerin the future. Plan for courtesy visit as I am out next week and then return to see me in 2 weeks. 12/30/24 0854 Cosigner Signature (if applicable): CC: ~ Signed [facility]09-15-2025 Progress note Author Yola Sepulveda [facility] Note Date/Time December 26, 2024 10:19am [facility] [address] [place] [address] Progress Note - Wound Care 12/22/24 1603 MR#: [id number] Acct: [id number] Name: STEPHANE TORIBIO Rep #:[id number] : 1960 64 From: Yola STEVENSON PCP: Dr. Abimael Elizabeth, DO Status:RE G RCR Location: History of Present Illness Date of Service: 12/22/24 Chief Complaint: Right calf nonhealing wound History of Wound: Mr. Stephane Toribio is a 64 y/o male who presents to the wound center today for ongoing management of his R posterior calf ulceration. He has previously been following with Chacha Dunham here but due to scheduling difficulties is seeing me for the next few weeks. He reports this calf ulcer has been present since around Mid-August, he really cannot pinpoint what may have provoked this. He does recall that remotely he hada thorny apple injure this calf and he subsequently had thorns/material come to the surface later on however he has not observed any such foreign material/body this time. He reports that initial treatment here was with a product that included silver and he felt he noticed improvement on that product; more recently it seems to have stalled a bit. He has some redness around the wound which he reports is fairly stable. He has not had increased pain. He reports mild drainage. He is not diabetic. He does not smoke. He has noticed some irritation around the wound edges which seems to correspond to where the adaptic contacts his skin. He has a R meniscus tear and had plans to proceed with arthroscopic interventionbut the wound must be healed in order for him to proceed. Subjective Subjective He reports he is doing well overall this week. There is dermatitic appearance around the wound. He denies any N/V, F/C, worsened drainage or foul odor. Objective Data Objective Data Vital Signs: Vital Signs Temp Pulse Resp BP O2 Del Method 97.9 F 66 18 140/73 H Room Air 12/22/24 13:20 12/22/24 13:20 12/22/24 13:20 12/22/24 13:20 12/22/24 13:20 Oxygen Delivery Method Room Air Charges/Coding Procedures Integumentary 111xxx-113xx: 62932 Luisa subq tissue 20 sq cm/< Physical Exam Const alert, oriented x3 and no apparent distress General Appearance: cooperative and comfortable HEENT normocephalic, head/scalp atraumatic, hearing grossly normal bilaterally, external ears normal and external nose normal Eyes General Eye: normal appearance of both eyes Neck General: normal visual inspection Resp Effort and Inspection: able to speak in complete sentences; Negative for labored, grunting or stridor Extremity Extremity Narrative: Trace edema bilateral lower extremities; spider veins bilaterally without any prominent larger varicosities, no significant hemosiderin deposition or lipodermatosclerosis. Skin Wound Narrative: R posterior calf ulceration with red/pink granular base without significant bioburden/slough. There is dermatitic appearance in the periwound, appears within area of foam-border dressing; no significant excess warmth, foul odor, fluctuance, increased edema, lymphangitic streaking. Debridement Note Debridement Note Wound debrided: R posterior calf Laterality: Right Type of Debridement: Selective debridement Anesthesia Used: 5% Lidocaine Gel Depth: Down to and including healthy tissue Percentage of wound debrided: 100 Instrument Used: 3mm curette Tissue Removed: slough, bioburden Severity: Fat Layer Exposed Amount of bleeding with debridement: None Patient tolerated procedure: Patient tolerated procedure well Post-Debridement Measurements and Additional Note: Post-Debridement Measurements/Treatment WC - Nurse 1 - General Ulcer Assessment Start: 12/22/24 13:20 Freq: Status: Active Protocol: LUIS ARMANDO Activity Type Activity Date Activity User E-sign Co-sign Detail Recorded Client Recorded Date Recorded By Document 12/22/24 13:20 [id number] 12/22/24 13:26 12/22/24 13:20 WC - Today's Visit Information Type of service Follow-up Visit (Physician/STARCH TREATING ASSISTANT ) Arrival Mode Ambulatory Patient Identification Verified (Name & Yes ) Vital Signs Temperature (97.8 F-99.1 F) 97.9 F Temperature Source Temporal Pulse Rate (60-100) 66 Pulse Location Monitor Respiratory Rate (12-18) 18 Respiratory rate source Observation Oxygen Delivery Method Room Air Blood Pressure (90/60-120/80) 140/73 H Blood Pressure Mean (mm Hg) 95 Source Monitor Position Semi-Fowlers Blood Pressure Location Right Arm History Since Last Visit- (Skip if this is Patient's initial visit) Have you changed medications since your No last visit? Any new allergies or adverse reactions No Had a fall/change in ADL's that may No increase risk of falls Signs or symptoms of abuse and/or No neglect since last visit Have you been in the hospital since your No last visit? Has dressing in place as prescribed Yes Has compression in place as prescribed Yes Has offloadiing in place as prescribed N/A Experienced any changes in pain level or No management Left Footwear Regular Shoe Right Footwear Regular Shoe Pain Scale: 0-10 Numeric Is Patient Pain Free? Yes - Nurse 1 - General Ulcer Measurement Start: 12/22/24 13:20 Freq: Status: Active Protocol: Activity Type Activity Date Activity User E-sign Co-sign Detail Recorded Client Recorded Date Recorded By Document 12/22/24 13:20 KW [id number] 12/22/24 13:26 KW Edit Result 12/22/24 13:20 KW (1) [id number] 12/22/24 13:27 KW (1) Right Calf (cm) => 49.6 Right Ankle (cm) => 28.1 12/22/24 13:20 Wound Center Nurse 1 #1 R Calf -Current Size (cm) - Length 0.6 -Current Size (cm) - Width 2.9 -Current Size (cm) - Depth 0.2 -Total Square Cm 1.74 -Date of Last Picture (Recall this 12/22/24 field) -Exudate Amt Medium -Exudate Type Serosanguineous -Wound Margin Distinct, Outline Attached -Granulation Amt Large (67-100%) -Granulation Quality Red -Necrosis Amt Small (1-33%) -Necrotic Tissue Type Adherent Slough -Texture (Za-wound Skin Appearance) Assessed -Moisture (Za-wound Skin Appearance) Assessed -Color (Za-wound Skin Appearance) Assessed -Temperature (Za-wound Skin No Abnormality Appearance) (Pt Warm) -Tenderness on Palpation (Za-wound No Skin Appearance) -Ulcer Cleansing Rinsed/ Irrigated with Saline -Foul Odor after Cleansing No -Anesthetic Used 5% Lidocaine Gel Right Calf (cm) 49.6 Right Ankle (cm) 28.1 - Nurse 2 - General Ulcer CM Notes Start: 12/22/24 13:20 Freq: Status: Active Protocol: Activity Type Activity Date Activity User E-sign Co-sign Detail Recorded Client Recorded Date Recorded By Document 12/22/24 13:35 GM [id number] 12/22/24 13:38 GM 12/22/24 13:35 Wound Center Nurse 2 #1 R Calf -Time 13:36 -Correct Patient Yes -Correct Side, Site, Position Yes -Correct Procedure Yes -Procedure Performed Yes -Type of Procedure Debridement -Clinical Debridement Subcutaneous -Tissue Removed Subcutaneous -Post Debridement (cm) - Length 0.5 -Post Debridement (cm) - Width 0.6 -Post Debridement (cm) - Depth 0.2 -Total Square (Post) (cm) 0.30 -Area of Debridement (cm) - Length 0.5 -Area of Debridement (cm) - Width 0.6 -Total Square (Area) (cm) 0.30 -Tunneling No -Undermining/Tunneling No -Circular Undermining No -Wound/Ulcer Outcome Not Healed -Ulcer Cleansing Rinsed/ Irrigated with Saline -Foul Odor after Cleansing No -Bioengineered Tissue No -Bleeding Controlled with Pressure -Treatment Response Procedure Tolerated Well -Debridement - Subq, 1st 20sq cm Yes Pain Scale: 0-10 Numeric Is Patient Pain Free? Yes - Nurse 3 - General Ulcer D/C NN Start: 12/22/24 13:20 Freq: Status: Active Protocol: Activity Type Activity Date Activity User E-sign Co-sign Detail Recorded Client Recorded Date Recorded By Document 12/22/24 13:51 DARY [id number] 12/22/24 13:51 DARY 12/22/24 13:51 Wound Care Center Nurse 3 #1 R Calf -Primary Dressing Applied Promogran Lenka Matter -Primary Dressing Covered/Secured with Dry Gauze & Roll Gauze, Secured with Tape -Promogran Lenka Matter 1 Pain Scale: 0-10 Numeric Is Patient Pain Free? 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 For wound care: (1) Cleanse the area with soap and water, pat to dry (2) Gentamicin ointment (3) Apply lightly-moistened Lenka to the wound case (4) drygazue dressing/ABD pad and then Kerlix wrap, tape dressing to itself instead of skin (4) Change every other day if the area remains clean and dry, change more often as needed if it becomes soaked or soiled. Continue to utilize compression stockings daily. We will consider venous dopplerin the future. Plan for return to the office in 1 week, sooner as needed. 12/26/24 1019 <Electronically signed by Yola STEVENSON> Cosigner Signature (if applicable): CC: ~ Signed [facility] Work Phone: [phone] 591-957609-15-2025 Progress note [facility] [address] [place] [address] Progress Note - Wound Care 12/22/24 1603 MR#: [id number] Acct: [id number] Name: STEPHANE TORIBIO Rep #:[id number] : 1960 64 From: Yola STEVENSON PCP: Dr. Abimael Elizabeth, DO Status:RE G RCR Location: History of Present Illness Date of Service: 12/22/24 Chief Complaint: Right calf nonhealing wound History of Wound: Mr. Stephane Toribio is a 64 y/o male who presents to the wound center today for ongoing management of his R posterior calf ulceration. He has previously been following with Chacha Dunham here but due to scheduling difficulties is seeing me for the next few weeks. He reports this calf ulcer has been present since around Mid-August, he really cannot pinpoint what may have provoked this. He does recall that remotely he hada thorny apple injure this calf and he subsequently had thorns/material come to the surface later on however he has not observed any such foreign material/body this time. He reports that initial treatment here was with a product that included silver and he felt he noticed improvement on that product; more recently it seems to have stalled a bit. He has some redness around the wound which he reports is fairly stable. He has not had increased pain. He reports mild drainage. He is not diabetic. He does not smoke. He has noticed some irritation around the wound edges which seems to correspond to where the adaptic contacts his skin. He has a R meniscus tear and had plans to proceed with arthroscopic interventionbut the wound must be healed in order for him to proceed. Subjective Subjective He reports he is doing well overall this week. There is dermatitic appearance around the wound. He denies any N/V, F/C, worsened drainage or foul odor. Objective Data Objective Data Vital Signs: Vital Signs Temp Pulse Resp BP O2 Del Method 97.9 F 66 18 140/73 H Room Air 12/22/24 13:20 12/22/24 13:20 12/22/24 13:20 12/22/24 13:20 12/22/24 13:20 Oxygen Delivery Method Room Air Charges/Coding Procedures Integumentary 111xxx-113xx: 10803 Luisa subq tissue 20 sq cm/< Physical Exam Const alert, oriented x3 and no apparent distress General Appearance: cooperative and comfortable HEENT normocephalic, head/scalp atraumatic, hearing grossly normal bilaterally, external ears normal and external nose normal Eyes General Eye: normal appearance of both eyes Neck General: normal visual inspection Resp Effort and Inspection: able to speak in complete sentences; Negative for labored, grunting or stridor Extremity Extremity Narrative: Trace edema bilateral lower extremities; spider veins bilaterally without any prominent larger varicosities, no significant hemosiderin deposition or lipodermatosclerosis. Skin Wound Narrative: R posterior calf ulceration with red/pink granular base without significant bioburden/slough. Thereis dermatitic appearance in the periwound, appears within area of foam-border dressing; no significant excess warmth, foul odor, fluctuance, increased edema, lymphangitic streaking. Debridement Note Debridement Note Wound debrided: R posterior calf Laterality: Right Type of Debridement: Selective debridement Anesthesia Used: 5% Lidocaine Gel Depth: Down to and including healthy tissue Percentage of wound debrided: 100 Instrument Used: 3mm curette Tissue Removed: slough, bioburden Severity: Fat Layer Exposed Amount of bleeding with debridement: None Patient tolerated procedure: Patient tolerated procedure well Post-Debridement Measurements and Additional Note: Post-Debridement Measurements/Treatment - Nurse 1 - General Ulcer Assessment Start: 12/22/24 13:20 Freq: Status: Active Protocol: [email or web address].MAURICIO Activity Type Activity Date Activity User E-sign Co-sign Detail Recorded Client Recorded Date Recorded By Document 12/22/24 13:20 DAYR [id number] 12/22/24 13:26 KW 12/22/24 13:20 - Today's Visit Information Type of service Follow-up Visit (Physician/STARCH TREATING ASSISTANT ) Arrival Mode Ambulatory Patient Identification Verified (Name & Yes ) Vital Signs Temperature (97.8 F-99.1 F) 97.9 F Temperature Source Temporal Pulse Rate (60-100) 66 Pulse Location Monitor Respiratory Rate (12-18) 18 Respiratory rate source Observation Oxygen Delivery Method Room Air Blood Pressure (90/60-120/80) 140/73 H Blood Pressure Mean (mm Hg) 95 Source Monitor Position Semi-Fowlers Blood Pressure Location Right Arm History Since Last Visit- (Skip if this is Patient's initial visit) Have you changed medications since your No last visit? Any new allergies or adverse reactions No Had a fall/change in ADL's that may No increase risk of falls Signs or symptoms of abuse and/or No neglect since last visit Have you been in the hospital since your No last visit? Has dressing in place as prescribed Yes Has compression in place as prescribed Yes Has offloadiing in place as prescribed N/A Experienced any changes in pain level or No management Left Footwear Regular Shoe Right Footwear Regular Shoe Pain Scale: 0-10 Numeric Is Patient Pain Free? Yes WC - Nurse 1 - General Ulcer Measurement Start: 12/22/24 13:20 Freq: Status: Active Protocol: Activity Type Activity Date Activity User E-sign Co-sign Detail Recorded Client Recorded Date Recorded By Document 12/22/24 13:20 KW [id number] 12/22/24 13:26 KW Edit Result 12/22/24 13:20 KW (1) [id number] 12/22/24 13:27 KW (1) Right Calf (cm) => 49.6 Right Ankle (cm) => 28.1 12/22/24 13:20 Wound Center Nurse 1 #1 R Calf -Current Size (cm) - Length 0.6 -Current Size (cm) - Width 2.9 -Current Size (cm) - Depth 0.2 -Total Square Cm 1.74 -Date of Last Picture (Recall this 12/22/24 field) -Exudate Amt Medium -Exudate Type Serosanguineous -Wound Margin Distinct, Outline Attached -Granulation Amt Large (67-100%) -Granulation Quality Red -Necrosis Amt Small (1-33%) -Necrotic Tissue Type Adherent Slough -Texture (Za-wound Skin Appearance) Assessed -Moisture (Za-wound Skin Appearance) Assessed -Color (Za-wound Skin Appearance) Assessed -Temperature (Za-wound Skin No Abnormality Appearance) (Pt Warm) -Tenderness on Palpation (Za-wound No Skin Appearance) -Ulcer Cleansing Rinsed/ Irrigated with Saline -Foul Odor after Cleansing No -Anesthetic Used 5% Lidocaine Gel Right Calf (cm) 49.6 Right Ankle (cm) 28.1 - Nurse 2 - General Ulcer CM Notes Start: 12/22/24 13:20 Freq: Status: Active Protocol: Activity Type Activity Date Activity User E-sign Co-sign Detail Recorded Client Recorded Date Recorded By Document 12/22/24 13:35 [id number] 12/22/24 13:38 12/22/24 13:35 Wound Center Nurse 2 #1 R Calf -Time 13:36 -Correct Patient Yes -Correct Side, Site, Position Yes -Correct Procedure Yes -Procedure Performed Yes -Type of Procedure Debridement -Clinical Debridement Subcutaneous -Tissue Removed Subcutaneous -Post Debridement (cm) - Length 0.5 -Post Debridement (cm) - Width 0.6 -Post Debridement (cm) - Depth 0.2 -Total Square (Post) (cm) 0.30 -Area of Debridement (cm) - Length 0.5 -Area of Debridement (cm) - Width 0.6 -Total Square (Area) (cm) 0.30 -Tunneling No -Undermining/Tunneling No -Circular Undermining No -Wound/Ulcer Outcome Not Healed -Ulcer Cleansing Rinsed/ Irrigated with Saline -Foul Odor after Cleansing No -Bioengineered Tissue No -Bleeding Controlled with Pressure -Treatment Response Procedure Tolerated Well -Debridement - Subq, 1st 20sq cm Yes Pain Scale: 0-10 Numeric Is Patient Pain Free? Yes - Nurse 3 - General Ulcer D/C NN Start: 12/22/24 13:20 Freq: Status: Active Protocol: Activity Type Activity Date Activity User E-sign Co-sign Detail Recorded Client Recorded Date Recorded By Document 12/22/24 13:51 [id number] 12/22/24 13:51 12/22/24 13:51 Wound Care Center Nurse 3 #1 R Calf -Primary Dressing Applied Promogran Lenka Matter -Primary Dressing Covered/Secured with Dry Gauze & Roll Gauze, Secured with Tape -Promogran Lenka Matter 1 Pain Scale: 0-10 Numeric Is Patient Pain Free? 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 For wound care: (1) Cleanse the area with soap and water, pat to dry (2) Gentamicin ointment (3) Apply lightly-moistened Lenka to the wound case (4) drygazue dressing/ABD pad and then Kerlix wrap, tape dressing to itself instead of skin (4) Change every other day if the area remains clean and dry,change more often as needed if it becomes soaked or soiled. Continue to utilize compression stockings daily. We will consider venous dopplerin the future. Plan for return to the office in 1 week, sooner as needed. 12/26/24 1019 Cosigner Signature (if applicable): CC: ~ Signed [facility]08-29-2025 Progress note Author Yola Sepulveda [facility] Note Date/Time December 08, 2024 11 :13pm [facility] [address] [place] [id number] Progress Note - Wound Care 12/08/24 1340 MR#: [id number] Acct: [id number] Name: STEPHANE TORIBIO Rep #:[id number] : 1960 64 From: Yola STEVENSON PCP: Dr. Abimael Elizabeth, DO Status:RE G RCR Location: History of Present Illness Date of Service: 12/08/24 Chief Complaint: Right calf nonhealing wound History of Wound: Mr. Stephane Toribio is a 64 y/o male who presents to the wound center today for ongoing management of his R posterior calf ulceration. He has previously been following with Chacha Dunham here but due to scheduling difficulties is seeing me for the next few weeks. He reports this calf ulcer has been present since around Mid-August, he really cannot pinpoint what may have provoked this. He does recall that remotely he hada thorny apple injure this calf and he subsequently had thorns/material come to the surface later on however he has not observed any such foreign material/body this time. He reports that initial treatment here was with a product that included silver and he felt he noticed improvement on that product; more recently it seems to have stalled a bit. He has some redness around the wound which he reports is fairly stable. He has not had increased pain. He reports mild drainage. He is not diabetic. He does not smoke. He has noticed some irritation around the wound edges which seems to correspond to where the adaptic contacts his skin. He has a R meniscus tear and had plans to proceed with arthroscopic interventionbut the wound must be healed in order for him to proceed. Progress of Wound: He feels he has noticed improvement in the depth of the wound over this past week. He had no issues with dressing changes. No new concerns regarding the wound. Objective Data Objective Data Vital Signs: Vital Signs Temp Pulse Resp BP O2 Del Method 96.5 F L 69 18 162/82 H Room Air 12/08/24 12:58 12/08/24 12:58 12/08/24 12:58 12/08/24 12:58 12/08/24 12:58 Oxygen Delivery Method Room Air Charges/Coding Multi Select Codes Integumentary Integumentary CPT Codes: Other Procedure See Report ([id number]) Physical Exam Const alert, oriented x3 and no apparent distress General Appearance: cooperative and comfortable HEENT normocephalic, head/scalp atraumatic, hearing grossly normal bilaterally, external ears normal and external nose normal Eyes General Eye: normal appearance of both eyes Neck General: normal visual inspection Resp Effort and Inspection: able to speak in complete sentences; Negative for labored, grunting or stridor Extremity Extremity Narrative: Trace edema bilateral lower extremities; spider veins bilaterally without any prominent larger varicosities, no significant hemosiderin deposition or lipodermatosclerosis. Skin Wound Narrative: R posterior calf ulceration with red/pink granular base without significant bioburden/slough. There is mild erythema around the edges of the wound without associated increased warmth or fluctuance. There is no foul odor. Debridement Note Debridement Note Wound debrided: R posterior calf Laterality: Right Type of Debridement: Selective debridement Anesthesia Used: 5% Lidocaine Gel Depth: Down to and including healthy tissue Percentage of wound debrided: 100 Instrument Used: - (moistened gauze) Tissue Removed: slough, bioburden Severity: Fat Layer Exposed Amount of bleeding with debridement: None Patient tolerated procedure: Patient tolerated procedure well Post-Debridement Measurements and Additional Note: Post-Debridement Measurements/Treatment WC - Nurse 1 - General Ulcer Assessment Start: 11/23/24 10:33 Freq: Status: Active Protocol: LUIS ARMANDO Activity Type Activity Date Activity User E-sign Co-sign Detail Recorded Client Recorded Date Recorded By Document 11/23/24 10:34 DL [id number] 11/23/24 10:40 DL Document 12/01/24 13:12 KW [id number] 12/01/24 13:19 KW Document 12/08/24 12:58 KW [id number] 12/08/24 12:59 KW 11/23/24 12/01/24 12/08/24 10:34 13:12 12:58 WC - Today's Visit Information Type of service Follow-up Visit Follow-up Visit Follow-up Visit (Physician/STARCH TREATING ASSISTANT (Physician/STARCH TREATING ASSISTANT (Physician/STARCH TREATING ASSISTANT ) ) ) Arrival Mode Ambulatory Ambulatory Ambulatory Transfer Assistance None Patient Identification Verified (Name & Yes Yes Yes ) Patient Requires Transmission-Based No Precautions Vital Signs Temperature (97.8 F-99.1 F) 97.6 F L 96.0 F L 96.5 F L Temperature Source Temporal Temporal Temporal Pulse Rate (60-100) 59 L 74 69 Pulse Location Monitor Monitor Monitor Respiratory Rate (12-18) 16 18 18 Respiratory rate source Observation Observation Oxygen Delivery Method Room Air Room Air Blood Pressure (90/60-120/80) 136/74 H 153/81 H 162/82 H Blood Pressure Mean (mm Hg) 94 105 108 Source Monitor Monitor Monitor Position Semi-Fowlers Semi-Fowlers Blood Pressure Location Right Arm Left Arm History Since Last Visit- (Skip if this is Patient's initial visit) Have you changed medications since your No No No last visit? Any new allergies or adverse reactions No No No Had a fall/change in ADL's that may No No No increase risk of falls Signs or symptoms of abuse and/or No No No neglect since last visit Have you been in the hospital since your No No No last visit? Has dressing in place as prescribed Yes Yes Yes Has compression in place as prescribed Yes Yes Yes Has offloadiing in place as prescribed N/A N/A N/A Experienced any changes in pain level or No No No management Left Footwear Regular Shoe Regular Shoe Right Footwear Regular Shoe Regular Shoe Pain Scale: 0-10 Numeric Is Patient Pain Free? Yes Yes Yes WC - Nurse 1 - General Ulcer Measurement Start: 11/23/24 10:33 Freq: Status: Active Protocol: Activity Type Activity Date Activity User E-sign Co-sign Detail Recorded Client Recorded Date Recorded By Document 11/23/24 10:34 DL [id number] 11/23/24 10:40 DL Document 12/01/24 13:12 KW [id number] 12/01/24 13:19 KW Document 12/08/24 12:58 KW [id number] 12/08/24 12:59 KW 11/23/24 12/01/24 12/08/24 10:34 13:12 12:58 Wound Center Nurse 1 #1 R Calf -Current Size (cm) - Length 0.7 1 0.5 -Current Size (cm) - Width 1.1 0.8 0.8 -Current Size (cm) - Depth 0.2 0.2 0.1 -Total Square Cm 0.77 0.8 0.40 -Date of Last Picture (Recall this 12/01/24 12/08/24 field) -Photo Taken Yes -Exudate Amt Small Medium Medium -Exudate Type Serosanguineous Serosanguineous Serosanguineous -Wound Margin Distinct, Distinct, Distinct, Outline Outline Outline Attached Attached Attached -Granulation Amt Large (67-100%) Large (67-100%) Large (67-100%) -Granulation Quality Red Red [place],Red -Necrosis Amt Small (1-33%) Small (1-33%) -Necrotic Tissue Type Adherent Slough Adherent Slough -Structure Exposed N/A -Texture (Za-wound Skin Appearance) Scarring Assessed Assessed -Moisture (Za-wound Skin Appearance) No Abnormality Assessed Assessed -Color (Za-wound Skin Appearance) No Abnormality Assessed, Assessed Erythema -Temperature (Za-wound Skin No Abnormality No Abnormality No Abnormality Appearance) (Pt Warm) (Pt Warm) (Pt Warm) -Tenderness on Palpation (Za-wound No No No Skin Appearance) -Ulcer Cleansing Soap and Water Soap and Water Rinsed/ Irrigated with Saline -Foul Odor after Cleansing No No No -Anesthetic Used 5% Lidocaine 5% Lidocaine 5% Lidocaine Gel Gel Gel Right Calf (cm) 48 46.7 Right Ankle (cm) 26 26 - Nurse 2 - General Ulcer CM Notes Start: 11/23/24 10:33 Freq: Status: Active Protocol: Activity Type Activity Date Activity User E-sign Co-sign Detail Recorded Client Recorded Date Recorded By Document 11/23/24 10:49 [facility] [id number] 11/23/24 10:53 [facility] Document 12/01/24 13:26 [id number] 12/01/24 13:35 Document 12/08/24 13:24 [id number] 12/08/24 13:27 11/23/24 12/01/24 12/08/24 10:49 13:26 13:24 Wound Center Nurse 2 #1 R Calf -Time 10:49 13:27 13:24 -Correct Patient Yes Yes Yes -Correct Side, Site, Position Yes Yes Yes -Correct Procedure Yes Yes Yes -Procedure Performed Yes Yes Yes -Type of Procedure Debridement Debridement Debridement -Clinical Debridement Subcutaneous Subcutaneous Epidermis / Dermis -Tissue Removed Subcutaneous Subcutaneous Dermis -Post Debridement (cm) - Length 0.8 0.7 0.6 -Post Debridement (cm) - Width 1.2 0.8 0.8 -Post Debridement (cm) - Depth 0.3 0.3 0.1 -Total Square (Post) (cm) 0.96 0.56 0.48 -Area of Debridement (cm) - Length 0.8 0.7 0.6 -Area of Debridement (cm) - Width 1.2 0.8 0.8 -Total Square (Area) (cm) 0.96 0.56 0.48 -Tunneling No No No -Undermining/Tunneling No No -Circular Undermining No No No -Wound/Ulcer Outcome Not Healed Not Healed Not Healed -Ulcer Cleansing Rinsed/ Rinsed/ Rinsed/ Irrigated with Irrigated with Irrigated with Saline Saline Saline -Foul Odor after Cleansing No No No -Bioengineered Tissue No No No -Bleeding Controlled with Pressure Pressure NA -Treatment Response Procedure Procedure Procedure Tolerated Well Tolerated Well Tolerated Well -Offloading No -Debridement - Open, 1st 20sq cm Yes -Debridement - Subq, 1st 20sq cm Yes Yes Pain Scale: 0-10 Numeric Is Patient Pain Free? Yes Yes Yes - Nurse 3 - General Ulcer D/C NN Start: 11/23/24 10:33 Freq: Status: Active Protocol: Activity Type Activity Date Activity User E-sign Co-sign Detail Recorded Client Recorded Date Recorded By Document 11/23/24 11:00 DL [id number] 11/23/24 11:01 DL Document 12/08/24 13:38 ML [id number] 12/08/24 13:39 ML 11/23/24 12/08/24 11:00 13:38 Wound Care Center Nurse 3 #1 R Calf -Ulcer Cleansing Rinsed/ Rinsed/ Irrigated with Irrigated with Saline Saline -Foul Odor after Cleansing No -Primary Dressing Applied Aquacel Extra, Promogran NonAdherent Lenka Matter, Contact Layer, Silicone Border Silicone Border Foam AG 3.6x4 Foam 4x4 -Aquacel Extra 1 -Promogran Lenka Matter 1 -Silicone Border Foam AG 3.6x4 1 -Silicone Border Foam 4x4 1 RLE -Tubular Bandage Single Layer -Size of Tubigrip Used Size F -Size F ($) 1 Treatment Response Procedure Tolerated Well Pain Scale: 0-10 Numeric Is Patient Pain Free? 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 No signs of infection. For wound care: (1) Cleanse the area with soap and water, pat to dry (2) Apply lightly-moistened Lenka to the wound case (3) Cover with foam-border dressing (Mepilex or ExcelSAP) (4) Change every other day if the area remains clean and dry, change more often as needed if it becomes soaked or soiled. Continue to utilize compression stockings daily. We will consider venous dopplerin the future. Plan for return to the office in 1 week, sooner as needed. 12/08/24 9432 <Electronically signed by Yola STEVENSON> Cosigner Signature (if applicable): CC: ~ Signed [facility] Work Phone: [phone]) 469-481908-28-2025 Progress note [facility] [address] [place] [address] Progress Note - Wound Care 12/08/24 1340 MR#: [id number] Acct: [id number] Name: STEPHANE TORIBIO Rep #:[id number] : 1960 64 From: Yola STEVENSON PCP: Dr. Abimael Elizabeth, DO Status:RE G RCR Location: WC History of Present Illness Date of Service: 12/08/24 Chief Complaint: Right calf nonhealing wound History of Wound: Mr. Stephane Toribio is a 64 y/o male who presents to the wound center today for ongoing management of his R posterior calf ulceration. He has previously been following with Chacha Dunham here but due to scheduling difficulties is seeing me for the next few weeks. He reports this calf ulcer has been present since around Mid-August, he really cannot pinpoint what may have provoked this. He does recall that remotely he hada thorny apple injure this calf and he subsequently had thorns/material come to the surface later on however he has not observed any such foreign material/body this time. He reports that initial treatment here was with a product that included silver and he felt he noticed improvement on that product; more recently it seems to have stalled a bit. He has some redness around the wound which he reports is fairly stable. He has not had increased pain. He reports mild drainage. He is not diabetic. He does not smoke. He has noticed some irritation around the wound edges which seems to correspond to where the adaptic contacts his skin. He has a R meniscus tear and had plans to proceed with arthroscopic interventionbut the wound must be healed in order for him to proceed. Progress of Wound: He feels he has noticed improvement in the depth of the wound over this past week. He had no issueswith dressing changes. No new concerns regarding the wound. Objective Data Objective Data Vital Signs: Vital Signs Temp Pulse Resp BP O2 Del Method 96.5 F L 69 18 162/82 H Room Air 12/08/24 12:58 12/08/24 12:58 12/08/24 12:58 12/08/24 12:58 12/08/24 12:58 Oxygen Delivery Method Room Air Charges/Coding Multi Select Codes Integumentary Integumentary CPT Codes: Other Procedure See Report ([id number]) Physical Exam Const alert, oriented x3 and no apparent distress General Appearance: cooperative and comfortable HEENT normocephalic, head/scalp atraumatic, hearing grossly normal bilaterally, external ears normal and external nose normal Eyes General Eye: normal appearance of both eyes Neck General: normal visual inspection Resp Effort and Inspection: able to speak in complete sentences; Negative for labored, grunting or stridor Extremity Extremity Narrative: Trace edema bilateral lower extremities; spider veins bilaterally without any prominent larger varicosities, no significant hemosiderin deposition or lipodermatosclerosis. Skin Wound Narrative: R posterior calf ulceration with red/pink granular base without significant bioburden/slough. Thereis mild erythema around the edges of the wound without associated increased warmth or fluctuance. There is no foul odor. Debridement Note Debridement Note Wound debrided: R posterior calf Laterality: Right Type of Debridement: Selective debridement Anesthesia Used: 5% Lidocaine Gel Depth: Down to and including healthy tissue Percentage of wound debrided: 100 Instrument Used: - (moistened gauze) Tissue Removed: slough, bioburden Severity: Fat Layer Exposed Amount of bleeding with debridement: None Patient tolerated procedure: Patient tolerated procedure well Post-Debridement Measurements and Additional Note: Post-Debridement Measurements/Treatment - Nurse 1 - General Ulcer Assessment Start: 11/23/24 10:33 Freq: Status: Active Protocol: LUIS ARMANDO Activity Type Activity Date Activity User E-sign Co-sign Detail Recorded Client Recorded Date Recorded By Document 11/23/24 10:34 DL [id number] 11/23/24 10:40 DL Document 12/01/24 13:12 KW [id number] 12/01/24 13:19 KW Document 12/08/24 12:58 KW [id number] 12/08/24 12:59 KW 11/23/24 12/01/24 12/08/24 10:34 13:12 12:58 - Today's Visit Information Type of service Follow-up Visit Follow-up Visit Follow-up Visit (Physician/STARCH TREATING ASSISTANT (Physician/STARCH TREATING ASSISTANT (Physician/STARCH TREATING ASSISTANT ) ) ) Arrival Mode Ambulatory Ambulatory Ambulatory Transfer Assistance None Patient Identification Verified (Name & Yes Yes Yes ) Patient Requires Transmission-Based No Precautions Vital Signs Temperature (97.8 F-99.1 F) 97.6 F L 96.0 F L 96.5 F L Temperature Source Temporal Temporal Temporal Pulse Rate (60-100) 59 L 74 69 Pulse Location Monitor Monitor Monitor Respiratory Rate (12-18) 16 18 18 Respiratory rate source Observation Observation Oxygen Delivery Method Room Air Room Air Blood Pressure (90/60-120/80) 136/74 H 153/81 H 162/82 H Blood Pressure Mean (mm Hg) 94 105 108 Source Monitor Monitor Monitor Position Semi-Fowlers Semi-Fowlers Blood Pressure Location Right Arm Left Arm History Since Last Visit- (Skip if this is Patient's initial visit) Have you changed medications since your No No No last visit? Any new allergies or adverse reactions No No No Had a fall/change in ADL's that may No No No increase risk of falls Signs or symptoms of abuse and/or No No No neglect since last visit Have you been in the hospital since your No No No last visit? Has dressing in place as prescribed Yes Yes Yes Has compression in place as prescribed Yes Yes Yes Has offloadiing in place as prescribed N/A N/A N/A Experienced any changes in pain level or No No No management Left Footwear Regular Shoe Regular Shoe Right Footwear Regular Shoe Regular Shoe Pain Scale: 0-10 Numeric Is Patient Pain Free? Yes Yes Yes WC - Nurse 1 - General Ulcer Measurement Start: 11/23/24 10:33 Freq: Status: Active Protocol: Activity Type Activity Date Activity User E-sign Co-sign Detail Recorded Client Recorded Date Recorded By Document 11/23/24 10:34 DL [id number] 11/23/24 10:40 DL Document 12/01/24 13:12 KW [id number] 12/01/24 13:19 KW Document 12/08/24 12:58 KW [id number] 12/08/24 12:59 KW 11/23/24 12/01/24 12/08/24 10:34 13:12 12:58 Wound Center Nurse 1 #1 R Calf -Current Size (cm) - Length 0.7 1 0.5 -Current Size (cm) - Width 1.1 0.8 0.8 -Current Size (cm) - Depth 0.2 0.2 0.1 -Total Square Cm 0.77 0.8 0.40 -Date of Last Picture (Recall this 12/01/24 12/08/24 field) -Photo Taken Yes -Exudate Amt Small Medium Medium -Exudate Type Serosanguineous Serosanguineous Serosanguineous -Wound Margin Distinct, Distinct, Distinct, Outline Outline Outline Attached Attached Attached -Granulation Amt Large (67-100%) Large (67-100%) Large (67-100%) -Granulation Quality Red Red [place],Red -Necrosis Amt Small (1-33%) Small (1-33%) -Necrotic Tissue Type Adherent Slough Adherent Slough -Structure Exposed N/A -Texture (Za-wound Skin Appearance) Scarring Assessed Assessed -Moisture (Za-wound Skin Appearance) No Abnormality Assessed Assessed -Color (Za-wound Skin Appearance) No Abnormality Assessed, Assessed Erythema -Temperature (Za-wound Skin No Abnormality No Abnormality No Abnormality Appearance) (Pt Warm) (Pt Warm) (Pt Warm) -Tenderness on Palpation (Za-wound No No No Skin Appearance) -Ulcer Cleansing Soap and Water Soap and Water Rinsed/ Irrigated with Saline -Foul Odor after Cleansing No No No -Anesthetic Used 5% Lidocaine 5% Lidocaine 5% Lidocaine Gel Gel Gel Right Calf (cm) 48 46.7 Right Ankle (cm) 26 26 - Nurse 2 - General Ulcer CM Notes Start: 11/23/24 10:33 Freq: Status: Active Protocol: Activity Type Activity Date Activity User E-sign Co-sign Detail Recorded Client Recorded Date Recorded By Document 11/23/24 10:49 [facility] [id number] 11/23/24 10:53 [facility] Document 12/01/24 13:26 [id number] 12/01/24 13:35 Document 12/08/24 13:24 [id number] 12/08/24 13:27 11/23/24 12/01/24 12/08/24 10:49 13:26 13:24 Wound Center Nurse 2 #1 R Calf -Time 10:49 13:27 13:24 -Correct Patient Yes Yes Yes -Correct Side, Site, Position Yes Yes Yes -Correct Procedure Yes Yes Yes -Procedure Performed Yes Yes Yes -Type of Procedure Debridement Debridement Debridement -Clinical Debridement Subcutaneous Subcutaneous Epidermis / Dermis -Tissue Removed Subcutaneous Subcutaneous Dermis -Post Debridement (cm) - Length 0.8 0.7 0.6 -Post Debridement (cm) - Width 1.2 0.8 0.8 -Post Debridement (cm) - Depth 0.3 0.3 0.1 -Total Square (Post) (cm) 0.96 0.56 0.48 -Area of Debridement (cm) - Length 0.8 0.7 0.6 -Area of Debridement (cm) - Width 1.2 0.8 0.8 -Total Square (Area) (cm) 0.96 0.56 0.48 -Tunneling No No No -Undermining/Tunneling No No -Circular Undermining No No No -Wound/Ulcer Outcome Not Healed Not Healed Not Healed -Ulcer Cleansing Rinsed/ Rinsed/ Rinsed/ Irrigated with Irrigated with Irrigated with Saline Saline Saline -Foul Odor after Cleansing No No No -Bioengineered Tissue No No No -Bleeding Controlled with Pressure Pressure NA -Treatment Response Procedure Procedure Procedure Tolerated Well Tolerated Well Tolerated Well -Offloading No -Debridement - Open, 1st 20sq cm Yes -Debridement - Subq, 1st 20sq cm Yes Yes Pain Scale: 0-10 Numeric Is Patient Pain Free? Yes Yes Yes WC - Nurse 3 - General Ulcer D/C NN Start: 11/23/24 10:33 Freq: Status: Active Protocol: Activity Type Activity Date Activity User E-sign Co-sign Detail Recorded Client Recorded Date Recorded By Document 11/23/24 11:00 DL [id number] 11/23/24 11:01 DL Document 12/08/24 13:38 ML [id number] 12/08/24 13:39 ML 11/23/24 12/08/24 11:00 13:38 Wound Care Center Nurse 3 #1 R Calf -Ulcer Cleansing Rinsed/ Rinsed/ Irrigated with Irrigated with Saline Saline -Foul Odor after Cleansing No -Primary Dressing Applied Aquacel Extra, Promogran NonAdherent [place] Matter, Contact Layer, Silicone Border Silicone Border Foam AG 3.6x4 Foam 4x4 -Aquacel Extra 1 -Promogran [place] Matter 1 -Silicone Border Foam AG 3.6x4 1 -Silicone Border Foam 4x4 1 RLE -Tubular Bandage Single Layer -Size of Tubigrip Used Size F -Size F ($) 1 Treatment Response Procedure Tolerated Well Pain Scale: 0-10 Numeric Is Patient Pain Free? 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 No signs of infection. For wound care: (1) Cleanse the area with soap and water, pat to dry (2) Apply lightly-moistened Lenka to the wound case (3) Cover with foam-border dressing (Mepilex or ExcelSAP) (4) Change every other day if the area remains clean and dry, change more often as needed if it becomes soaked or soiled. Continue to utilize compression stockings daily. We will consider venous dopplerin the future. Plan for return to the office in 1 week, sooner as needed. 12/08/24 [id number] Cosigner Signature (if applicable): CC: ~ Signed [facility]08-21-2025 History and physical note Author Yola Sepulveda [facility] Note Date/Time December 01, 2024 2: 23pm [facility] [address] [place] [id number] H&P Exam - Wound Care 12/01/24 1408 MR#: [id number] Acct: [id number] Name: STEPHANE TORIBIO Rep #:[id number] : 1960 64 From: Yola STEVENSON PCP: Dr. Abimael Elizabeth, DO Status:RE G RCR Location: History of Present Illness Date of Service: 12/01/24 Chief Complaint: Right calf nonhealing wound History of Wound: Mr. Stephane Toribio is a 64 y/o male who presents to the wound center today for ongoing management of his R posterior calf ulceration. He has previously been following with Chacha Dunham here but due to scheduling difficulties is seeing me for the next few weeks. He reports this calf ulcer has been present since around Mid-August, he really cannot pinpoint what may have provoked this. He does recall that remotely he hada thorny apple injure this calf and he subsequently had thorns/material come to the surface later on however he has not observed any such foreign material/body this time. He reports that initial treatment here was with a product that included silver and he felt he noticed improvement on that product; more recently it seems to have stalled a bit. He has some redness around the wound which he reports is fairly stable. He has not had increased pain. He reports mild drainage. He is not diabetic. He does not smoke. He has noticed some irritation around the wound edges which seems to correspond to where the adaptic contacts his skin. He has a R meniscus tear and had plans to proceed with arthroscopic interventionbut the wound must be healed in order for him to proceed. [facility] Home Medications ?Medication ?Instructions ?Recorded ?Last Taken ?Type Lactobacillus 1 ea PO DAILY 11/26/17 Unkno wn History 41-B.animalis,bifid-FOS 111 mg (25 billion cell) capsule (Ultimate Probiotic-10) aspirin 81 mg chewable tablet 81 mg PO DAILY@0800 11/11 09/28 Unknown History cholecalciferol (vitamin D3) 25 1,000 unit PO DAILY Unknown History mcg (1,000 unit) capsule (Vitamin D3) esomeprazole magnesium 40 mg 40 mg PO DAILY 11/26/17 0 12/03/17 04:45 History capsule,delayed release (Nexium) 40 MG lidocaine-aloe vera 0.5 % topical 227 g TP PRN PRN CRE AM 11/26/17 Unknown History gel lisinopril 20 mg tablet 20 mg PO DAILY 11/26/1711/12 04:45 History 20 MG loratadine 10 mg tablet (Allergy 10 mg PO DAILY Unknown History Relief (loratadine)) melatonin 5 mg capsule 5 mg PO QHS 11/26/17 Unknown History mometasone 50 mcg/actuation nasal 2 spray DAILY Unknown History spray (Nasonex) montelukast 10 mg tablet 10 mg PO DAILY 11/26/17 Unkn own History naproxen 250 mg tablet 250 mg PO BID 11/26/17 Unkno wn History omega-3 1,050 il-ufk-yzi-dpa-fish 1 ea PO DAILY Unknown History oil 1,200 mg capsule ([place]-3 2100) sertraline 25 mg tablet (Zoloft) 25 mg PO DAILY Unknown History tamsulosin 0.4 mg capsule 0.4 mg PO DAILY 11/26/17 Unk nown History vitamin B comp and C no.3 15 mg-10 1 ea PO DAILY 11/26 Unknown History mg-50 mg-5 mg-300 mg capsule (B Complex Plus Vitamin C) hydrocodone-acetaminophen 5-325mg 1 ea PO Q6H PRN PRN Pain 5 days 12/03/17 Unknown Rx 5mg-325mg #20 tabs Allergy/AdvReac Type Severity Reaction Status Date / Time No Known Allergies Allergy Verified 11/26/17 09:31 Social History Smoking Status: Former smoker Vital Signs Vital Signs Vital Signs: 12/01/24 13:12 Temperature 96.0 F L Temperature Source Temporal Pulse Rate 74 Respiratory Rate 18 Blood Pressure 153/81 H Blood Pressure Mean 105 Blood Pressure Source Monitor Blood Pressure Position Semi-Fowlers Blood Pressure Location Right Arm Oxygen Delivery Method Room Air Physical Exam Const alert, oriented x3 and no apparent distress General Appearance: cooperative and comfortable HEENT normocephalic, head/scalp atraumatic, hearing grossly normal bilaterally, external ears normal and external nose normal Eyes General Eye: normal appearance of both eyes Neck General: normal visual inspection Resp Effort and Inspection: able to speak in complete sentences; Negative for labored, grunting or stridor Cardio Rate: regular rate Peripheral Pulses: posterior tibial pulses present and dorsalis pedis pulses present Extremity Extremity Narrative: Trace edema bilateral lower extremities; spider veins bilaterally without any prominent larger varicosities, no significant hemosiderin deposition or lipodermatosclerosis. Skin Wound Narrative: R posterior calf ulceration with red/pink granular base with small amount of bioburden/slough. There is mild erythema around the edges of the wound without associated increased warmth or fluctuance. There is no foul odor. Debridement Note Debridement Note Wound debrided: R posterior calf Laterality: Right Type of Debridement: Selective debridement Anesthesia Used: 5% Lidocaine Gel Depth: Down to and including healthy tissue and in the subcutaneous layer Percentage of wound debrided: 100 Instrument Used: 3mm curette Tissue Removed: slough, bioburden Severity: Fat Layer Exposed Amount of bleeding with debridement: Mild Bleeding Controlled with: Pressure Patient tolerated procedure: Patient tolerated procedure well Post-Debridement Measurements and Additional Note: Post-Debridement Measurements/Treatment VISHNU - Nurse 1 - General Ulcer Assessment Start: 11/23/24 10:33 Freq: Status: Active Protocol: WC.LOWEXT Activity Type Activity Date Activity User E-sign Co-sign Detail Recorded Client Recorded Date Recorded By Document 11/23/24 10:34 DL [id number] 11/23/24 10:40 DL Document 12/01/24 13:12 KW [id number] 12/01/24 13:19 KW 11/23/24 12/01/24 10:34 13:12 - Today's Visit Information Type of service Follow-up Visit Follow-up Visit (Physician/STARCH TREATING ASSISTANT (Physician/STARCH TREATING ASSISTANT ) ) Arrival Mode Ambulatory Ambulatory Transfer Assistance None Patient Identification Verified (Name & Yes Yes ) Patient Requires Transmission-Based No Precautions Vital Signs Temperature (97.8 F-99.1 F) 97.6 F L 96.0 F L Temperature Source Temporal Temporal Pulse Rate (60-100) 59 L 74 Pulse Location Monitor Monitor Respiratory Rate (12-18) 16 18 Respiratory rate source Observation Oxygen Delivery Method Room Air Blood Pressure (90/60-120/80) 136/74 H 153/81 H Blood Pressure Mean 94 105 Source Monitor Monitor Position Semi-Fowlers Blood Pressure Location Right Arm History Since Last Visit- (Skip if this is Patient's initial visit) Have you changed medications since your No No last visit? Any new allergies or adverse reactions No No Had a fall/change in ADL's that may No No increase risk of falls Signs or symptoms of abuse and/or No No neglect since last visit Have you been in the hospital since your No No last visit? Has dressing in place as prescribed Yes Yes Has compression in place as prescribed Yes Yes Has offloadiing in place as prescribed N/A N/A Experienced any changes in pain level or No No management Left Footwear Regular Shoe Right Footwear Regular Shoe Pain Scale: 0-10 Numeric Is Patient Pain Free? Yes Yes - Nurse 1 - General Ulcer Measurement Start: 11/23/24 10:33 Freq: Status: Active Protocol: Activity Type Activity Date Activity User E-sign Co-sign Detail Recorded Client Recorded Date Recorded By Document 11/23/24 10:34 DL [id number] 11/23/24 10:40 DL Document 12/01/24 13:12 KW [id number] 12/01/24 13:19 11/23/24 12/01/24 10:34 13:12 Wound Center Nurse 1 #1 R Calf -Current Size (cm) - Length 0.7 1 -Current Size (cm) - Width 1.1 0.8 -Current Size (cm) - Depth 0.2 0.2 -Total Square Cm 0.77 0.8 -Date of Last Picture (Recall this 12/01/24 field) -Photo Taken Yes -Exudate Amt Small Medium -Exudate Type Serosanguineous Serosanguineous -Wound Margin Distinct, Distinct, Outline Outline Attached Attached -Granulation Amt Large (67-100%) Large (67-100%) -Granulation Quality Red Red -Necrosis Amt Small (1-33%) -Necrotic Tissue Type Adherent Slough -Structure Exposed N/A -Texture (Za-wound Skin Appearance) Scarring Assessed -Moisture (Za-wound Skin Appearance) No Abnormality Assessed -Color (Za-wound Skin Appearance) No Abnormality Assessed, Erythema -Temperature (Za-wound Skin No Abnormality No Abnormality Appearance) (Pt Warm) (Pt Warm) -Tenderness on Palpation (Za-wound No No Skin Appearance) -Ulcer Cleansing Soap and Water Soap and Water -Foul Odor after Cleansing No No -Anesthetic Used 5% Lidocaine 5% Lidocaine Gel Gel Right Calf (cm) 48 46.7 Right Ankle (cm) 26 26 WC - Nurse 2 - General Ulcer CM Notes Start: 11/23/24 10:33 Freq: Status: Active Protocol: Activity Type Activity Date Activity User E-sign Co-sign Detail Recorded Client Recorded Date Recorded By Document 11/23/24 10:49 [facility] [id number] 11/23/24 10:53 [facility] Document 12/01/24 13:26 [id number] 12/01/24 13:35 11/23/24 12/01/24 10:49 13:26 Wound Center Nurse 2 #1 R Calf -Time 10:49 13:27 -Correct Patient Yes Yes -Correct Side, Site, Position Yes Yes -Correct Procedure Yes Yes -Procedure Performed Yes Yes -Type of Procedure Debridement Debridement -Clinical Debridement Subcutaneous Subcutaneous -Tissue Removed Subcutaneous Subcutaneous -Post Debridement (cm) - Length 0.8 0.7 -Post Debridement (cm) - Width 1.2 0.8 -Post Debridement (cm) - Depth 0.3 0.3 -Total Square (Post) (cm) 0.96 0.56 -Area of Debridement (cm) - Length 0.8 0.7 -Area of Debridement (cm) - Width 1.2 0.8 -Total Square (Area) (cm) 0.96 0.56 -Tunneling No No -Undermining/Tunneling No No -Circular Undermining No No -Wound/Ulcer Outcome Not Healed Not Healed -Ulcer Cleansing Rinsed/ Rinsed/ Irrigated with Irrigated with Saline Saline -Foul Odor after Cleansing No No -Bioengineered Tissue No No -Bleeding Controlled with Pressure Pressure -Treatment Response Procedure Procedure Tolerated Well Tolerated Well -Offloading No -Debridement - Subq, 1st 20sq cm Yes Yes Pain Scale: 0-10 Numeric Is Patient Pain Free? Yes Yes - Nurse 3 - General Ulcer D/C NN Start: 11/23/24 10:33 Freq: Status: Active Protocol: Activity Type Activity Date Activity User E-sign Co-sign Detail Recorded Client Recorded Date Recorded By Document 11/23/24 11:00 [id number] 11/23/24 11:01 DL 11/23/24 11:00 Wound Care Center Nurse 3 #1 R Calf -Ulcer Cleansing Rinsed/ Irrigated with Saline -Foul Odor after Cleansing No -Primary Dressing Applied Aquacel Extra, NonAdherent Contact Layer, Silicone Border Foam 4x4 -Aquacel Extra 1 -Silicone Border Foam 4x4 1 RLE -Tubular Bandage Single Layer -Size of Tubigrip Used Size F -Size F ($) 1 Treatment Response Procedure Tolerated Well Pain Scale: 0-10 Numeric Is Patient Pain Free? 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 Continue to utilize compression stockings daily. We will consider venous dopplerin the future. Plan for return to the office in 1 week, sooner as needed. 12/01/24 1423 <Electronically signed by Yola STEVENSON> Cosigner Signature (if applicable): CC: ~ Signed [facility] Work Phone: 1(847) 848-736808-21-2025 History and physical note [facility] [address] [place] [address] H&P Exam - Wound Care 12/01/24 1408 MR#: [id number] Acct: [id number] Name: STEPHANE TORIBIO Rep #:[id number] : 1960 64 From: Yola STEVENSON PCP: Dr. Abimael Elizabeth, DO Status:RE G RCR Location: History of Present Illness Date of Service: 12/01/24 Chief Complaint: Right calf nonhealing wound History of Wound: Mr. Stephane Toribio is a 64 y/o male who presents to the wound center today for ongoing management of his R posterior calf ulceration. He has previously been following with Chacha Dunham here but due to scheduling difficulties is seeing me for the next few weeks. He reports this calf ulcer has been present since around Mid-August, he really cannot pinpoint what may have provoked this. He does recall that remotely he hada thorny apple injure this calf and he subsequently had thorns/material come to the surface later on however he has not observed any such foreign material/body this time. He reports that initial treatment here was with a product that included silver and he felt he noticed improvement on that product; more recently it seems to have stalled a bit. He has some redness around the wound which he reports is fairly stable. He has not had increased pain. He reports mild drainage. He is not diabetic. He does not smoke. He has noticed some irritation around the wound edges which seems to correspond to where the adaptic contacts his skin. He has a R meniscus tear and had plans to proceed with arthroscopic interventionbut the wound must be healed in order for him to proceed. [facility] Home Medications ?Medication ?Instructions ?Recorded ?Last Taken ?Type Lactobacillus 1 ea PO DAILY 11/26/17 Unkno wn History 41-B.animalis,bifid-FOS 111 mg (25 billion cell) capsule (Ultimate Probiotic-10) aspirin 81 mg chewable tablet 81 mg PO DAILY@0800 11/11 09/28 Unknown History cholecalciferol (vitamin D3) 25 1,000 unit PO DAILY Unknown History mcg (1,000 unit) capsule (Vitamin D3) esomeprazole magnesium 40 mg 40 mg PO DAILY 11/26/17 0 12/03/17 04:45 History capsule,delayed release (Nexium) 40 MG lidocaine-aloe vera 0.5 % topical 227 g TP PRN PRN CRE AM 11/26/17 Unknown History gel lisinopril 20 mg tablet 20 mg PO DAILY 11/26/1711/12 04:45 History 20 MG loratadine 10 mg tablet (Allergy 10 mg PO DAILY Unknown History Relief (loratadine)) melatonin 5 mg capsule 5 mg PO QHS 11/26/17 Unknown History mometasone 50 mcg/actuation nasal 2 spray DAILY Unknown History spray (Nasonex) montelukast 10 mg tablet 10 mg PO DAILY 11/26/17 Unkn own History naproxen 250 mg tablet 250 mg PO BID 11/26/17 Unkno wn History omega-3 1,050 nj-bue-idj-dpa-fish 1 ea PO DAILY Unknown History oil 1,200 mg capsule ([place]-3 2100) sertraline 25 mg tablet (Zoloft) 25 mg PO DAILY Unknown History tamsulosin 0.4 mg capsule 0.4 mg PO DAILY 11/26/17 Unk nown History vitamin B comp and C no.3 15 mg-10 1 ea PO DAILY 11/26 Unknown History mg-50 mg-5 mg-300 mg capsule (B Complex Plus Vitamin C) hydrocodone-acetaminophen 5-325mg 1 ea PO Q6H PRN PRN Pain 5 days 12/03/17 Unknown Rx 5mg-325mg #20 tabs Allergy/AdvReac Type Severity Reaction Status Date / Time No Known Allergies Allergy Verified 11/26/17 09:31 Social History Smoking Status: Former smoker Vital Signs Vital Signs Vital Signs: 12/01/24 13:12 Temperature 96.0 F L Temperature Source Temporal Pulse Rate 74 Respiratory Rate 18 Blood Pressure 153/81 H Blood Pressure Mean 105 Blood Pressure Source Monitor Blood Pressure Position Semi-Fowlers Blood Pressure Location Right Arm Oxygen Delivery Method Room Air Physical Exam Const alert, oriented x3 and no apparent distress General Appearance: cooperative and comfortable HEENT normocephalic, head/scalp atraumatic, hearing grossly normal bilaterally, external ears normal and external nose normal Eyes General Eye: normal appearance of both eyes Neck General: normal visual inspection Resp Effort and Inspection: able to speak in complete sentences; Negative for labored, grunting or stridor Cardio Rate: regular rate Peripheral Pulses: posterior tibial pulses present and dorsalis pedis pulses present Extremity Extremity Narrative: Trace edema bilateral lower extremities; spider veins bilaterally without any prominent larger varicosities, no significant hemosiderin deposition or lipodermatosclerosis. Skin Wound Narrative: R posterior calf ulceration with red/pink granular base with small amount of bioburden/slough. There is mild erythema around the edges of the wound without associated increased warmth or fluctuance. There is no foul odor. Debridement Note Debridement Note Wound debrided: R posterior calf Laterality: Right Type of Debridement: Selective debridement Anesthesia Used: 5% Lidocaine Gel Depth: Down to and including healthy tissue and in the subcutaneous layer Percentage of wound debrided: 100 Instrument Used: 3mm curette Tissue Removed: slough, bioburden Severity: Fat Layer Exposed Amount of bleeding with debridement: Mild Bleeding Controlled with: Pressure Patient tolerated procedure: Patient tolerated procedure well Post-Debridement Measurements and Additional Note: Post-Debridement Measurements/Treatment - Nurse 1 - General Ulcer Assessment Start: 11/23/24 10:33 Freq: Status: Active Protocol: VISHNU.LOWDEMETRAT Activity Type Activity Date Activity User E-sign Co-sign Detail Recorded Client Recorded Date Recorded By Document 11/23/24 10:34 DL [id number] 11/23/24 10:40 DL Document 12/01/24 13:12 KW [id number] 12/01/24 13:19 KW 11/23/24 12/01/24 10:34 13:12 - Today's Visit Information Type of service Follow-up Visit Follow-up Visit (Physician/STARCH TREATING ASSISTANT (Physician/STARCH TREATING ASSISTANT ) ) Arrival Mode Ambulatory Ambulatory Transfer Assistance None Patient Identification Verified (Name & Yes Yes ) Patient Requires Transmission-Based No Precautions Vital Signs Temperature (97.8 F-99.1 F) 97.6 F L 96.0 F L Temperature Source Temporal Temporal Pulse Rate (60-100) 59 L 74 Pulse Location Monitor Monitor Respiratory Rate (12-18) 16 18 Respiratory rate source Observation Oxygen Delivery Method Room Air Blood Pressure (90/60-120/80) 136/74 H 153/81 H Blood Pressure Mean 94 105 Source Monitor Monitor Position Semi-Fowlers Blood Pressure Location Right Arm History Since Last Visit- (Skip if this is Patient's initial visit) Have you changed medications since your No No last visit? Any new allergies or adverse reactions No No Had a fall/change in ADL's that may No No increase risk of falls Signs or symptoms of abuse and/or No No neglect since last visit Have you been in the hospital since your No No last visit? Has dressing in place as prescribed Yes Yes Has compression in place as prescribed Yes Yes Has offloadiing in place as prescribed N/A N/A Experienced any changes in pain level or No No management Left Footwear Regular Shoe Right Footwear Regular Shoe Pain Scale: 0-10 Numeric Is Patient Pain Free? Yes Yes WC - Nurse 1 - General Ulcer Measurement Start: 11/23/24 10:33 Freq: Status: Active Protocol: Activity Type Activity Date Activity User E-sign Co-sign Detail Recorded Client Recorded Date Recorded By Document 11/23/24 10:34 DL [id number] 11/23/24 10:40 DL Document 12/01/24 13:12 KW [id number] 12/01/24 13:19 KW 11/23/24 12/01/24 10:34 13:12 Wound Center Nurse 1 #1 R Calf -Current Size (cm) - Length 0.7 1 -Current Size (cm) - Width 1.1 0.8 -Current Size (cm) - Depth 0.2 0.2 -Total Square Cm 0.77 0.8 -Date of Last Picture (Recall this 12/01/24 field) -Photo Taken Yes -Exudate Amt Small Medium -Exudate Type Serosanguineous Serosanguineous -Wound Margin Distinct, Distinct, Outline Outline Attached Attached -Granulation Amt Large (67-100%) Large (67-100%) -Granulation Quality Red Red -Necrosis Amt Small (1-33%) -Necrotic Tissue Type Adherent Slough -Structure Exposed N/A -Texture (Za-wound Skin Appearance) Scarring Assessed -Moisture (Za-wound Skin Appearance) No Abnormality Assessed -Color (Za-wound Skin Appearance) No Abnormality Assessed, Erythema -Temperature (Za-wound Skin No Abnormality No Abnormality Appearance) (Pt Warm) (Pt Warm) -Tenderness on Palpation (Za-wound No No Skin Appearance) -Ulcer Cleansing Soap and Water Soap and Water -Foul Odor after Cleansing No No -Anesthetic Used 5% Lidocaine 5% Lidocaine Gel Gel Right Calf (cm) 48 46.7 Right Ankle (cm) 26 26 WC - Nurse 2 - General Ulcer CM Notes Start: 11/23/24 10:33 Freq: Status: Active Protocol: Activity Type Activity Date Activity User E-sign Co-sign Detail Recorded Client Recorded Date Recorded By Document 11/23/24 10:49 [facility] [id number] 11/23/24 10:53 [facility] Document 12/01/24 13:26 [id number] 12/01/24 13:35 11/23/24 12/01/24 10:49 13:26 Wound Center Nurse 2 #1 R Calf -Time 10:49 13:27 -Correct Patient Yes Yes -Correct Side, Site, Position Yes Yes -Correct Procedure Yes Yes -Procedure Performed Yes Yes -Type of Procedure Debridement Debridement -Clinical Debridement Subcutaneous Subcutaneous -Tissue Removed Subcutaneous Subcutaneous -Post Debridement (cm) - Length 0.8 0.7 -Post Debridement (cm) - Width 1.2 0.8 -Post Debridement (cm) - Depth 0.3 0.3 -Total Square (Post) (cm) 0.96 0.56 -Area of Debridement (cm) - Length 0.8 0.7 -Area of Debridement (cm) - Width 1.2 0.8 -Total Square (Area) (cm) 0.96 0.56 -Tunneling No No -Undermining/Tunneling No No -Circular Undermining No No -Wound/Ulcer Outcome Not Healed Not Healed -Ulcer Cleansing Rinsed/ Rinsed/ Irrigated with Irrigated with Saline Saline -Foul Odor after Cleansing No No -Bioengineered Tissue No No -Bleeding Controlled with Pressure Pressure -Treatment Response Procedure Procedure Tolerated Well Tolerated Well -Offloading No -Debridement - Subq, 1st 20sq cm Yes Yes Pain Scale: 0-10 Numeric Is Patient Pain Free? Yes Yes WC - Nurse 3 - General Ulcer D/C NN Start: 11/23/24 10:33 Freq: Status: Active Protocol: Activity Type Activity Date Activity User E-sign Co-sign Detail Recorded Client Recorded Date Recorded By Document 11/23/24 11:00 DL [id number] 11/23/24 11:01 DL 11/23/24 11:00 Wound Care Center Nurse 3 #1 R Calf -Ulcer Cleansing Rinsed/ Irrigated with Saline -Foul Odor after Cleansing No -Primary Dressing Applied Aquacel Extra, NonAdherent Contact Layer, Silicone Border Foam 4x4 -Aquacel Extra 1 -Silicone Border Foam 4x4 1 RLE -Tubular Bandage Single Layer -Size of Tubigrip Used Size F -Size F ($) 1 Treatment Response Procedure Tolerated Well Pain Scale: 0-10 Numeric Is Patient Pain Free? 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 Continue to utilize compression stockings daily. We will consider venous dopplerin the future. Plan for return to the office in 1 week, sooner as needed. 12/01/24 1423 Cosigner Signature (if applicable): CC: ~ Signed [facility]08-13-2025 Progress note Author Chacha Dunham [facility] Note Date/Time November 23, 2024 11 :51am [facility] [address] [place] [address] Progress Note - Wound Care 11/23/24 1148 MR#: [id number] Acct: [id number] Name: STEPHANE TORIBIO Rep #:[id number] : 1960 64 From: Chacha Dunham NP FINANCIAL 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 Abimael Elizabeth, DO Status:RE G RCR Location: History of Present Illness Date of Service: 11/23/24 Chief Complaint: Right calf nonhealing wound History of Wound: This is a 63-year-old white male who states when he was a teenager he was [place] and got a thorn in his right calf and over the years part of it had come out but he feels like it is never healed. Though then he says about 3 months ago he felt that this really developed into something and now he wants to have a total knee and they will not touch him until he gets this taking care of. It is a scabbed area with some erythema around it it is sore to palpate and pressing down hard no foreign body can be felt by palpation. Patient has the certain insurance that were not allowed to debride on the first visit we can only look and see. Progress of Wound: The wound progression is slow patient's measurements are about the same as last week. He does not meet the criteria for an epi. Will continue using the Aquacel extra. Patient is compliant in using his compression stockings. Subjective Subjective Patient is agreeable to plan Objective Data Objective Data Measurements are about the same still has this reddened area going around the perimeter of the wound last cultures were negative we will wait and culture nextweek. Will continue with the Aquacel extra and see how it goes for another week. Patient had was missing for 2 weeks because he was on vacation and he stated he was on his legs a lot. Vital Signs: Vital Signs Temp Pulse Resp BP 97.6 F L 59 L 16 136/74 H 11/23/24 10:34 11/23/24 10:34 11/23/24 10:34 11/23/24 10:34 Lab / Micro Data Attestation: I reviewed the patient's lab results. Physical Exam Const oriented x3 General Appearance: cooperative Exam Limitations: no limitations HEENT normocephalic Head and Scalp: normal to inspection Face and Sinus: normal facial exam Nose: external nose normal General Ear: hearing grossly impaired External Ear: external ears normal Mouth: oral and palatal mucosa normal Eyes PERRL General Eye: normal appearance of both eyes Neck full ROM General: normal visual inspection Resp normal respiratory effort Effort and Inspection: able to speak in complete sentences Auscultation: clear to auscultation bilaterally Cardio regular rate and regular rhythm Palpation: normal PMI Rate: regular rate Rhythm: regular rhythm GI Auscultation: normoactive bowel sounds Palpation: soft and no hepatosplenomegaly external exam normal Back/Spine Cervical Spine: cervical ROM normal Thoracic Spine / Upper Back: normal to inspection Lumbar Spine / Lower Back: normal to inspection Extremity normal to inspection General Extremity: normal exam except as noted Skin Wound Narrative: Scabbed wound on right lateral calf with darkened erythema surrounding the perimeter Neuro oriented x3 Psych Appearance: grossly normal Speech: normal speech Thought Content: normal thought content Judgement: judgement good Debridement Note Debridement Note Wound debrided: Right lateral lower leg ulcer nonpressure Type of Debridement: Excisional debridement Anesthesia Used: 5% Lidocaine Gel Depth: Down to and including healthy tissue and in the subcutaneous layer Percentage of wound debrided: 100 Instrument Used: 5mm curette Tissue Removed: Fat layer and fibrin Severity: Fat Layer Exposed Amount of bleeding with debridement: Mild Bleeding Controlled with: Compression and gauze Patient tolerated procedure: Patient tolerated procedure well Post-Debridement Measurements and Additional Note: Post-Debridement Measurements/Treatment - Nurse 1 - General Ulcer Assessment Start: 11/23/24 10:33 Freq: Status: Active Protocol: LUIS ARMANDO Activity Type Activity Date Activity User E-sign Co-sign Detail Recorded Client Recorded Date Recorded By Document 11/23/24 10:34 DL [id number] 11/23/24 10:40 DL 11/23/24 10:34 - Today's Visit Information Type of service Follow-up Visit (Physician/STARCH TREATING ASSISTANT ) Arrival Mode Ambulatory Transfer Assistance None Patient Identification Verified (Name & Yes ) Patient Requires Transmission-Based No Precautions Vital Signs Temperature (97.8 F-99.1 F) 97.6 F L Temperature Source Temporal Pulse Rate (60-100) 59 L Pulse Location Monitor Respiratory Rate (12-18) 16 Blood Pressure (90/60-120/80) 136/74 H Blood Pressure Mean (mm Hg) 94 Source Monitor History Since Last Visit- (Skip if this is Patient's initial visit) Have you changed medications since your No last visit? Any new allergies or adverse reactions No Had a fall/change in ADL's that may No increase risk of falls Signs or symptoms of abuse and/or No neglect since last visit Have you been in the hospital since your No last visit? Has dressing in place as prescribed Yes Has compression in place as prescribed Yes Has offloadiing in place as prescribed N/A Experienced any changes in pain level or No management Pain Scale: 0-10 Numeric Is Patient Pain Free? Yes - Nurse 1 - General Ulcer Measurement Start: 11/23/24 10:33 Freq: Status: Active Protocol: Activity Type Activity Date Activity User E-sign Co-sign Detail Recorded Client Recorded Date Recorded By Document 11/23/24 10:34 DL [id number] 11/23/24 10:40 DL 11/23/24 10:34 Wound Center Nurse 1 #1 R Calf -Current Size (cm) - Length 0.7 -Current Size (cm) - Width 1.1 -Current Size (cm) - Depth 0.2 -Total Square Cm 0.77 -Photo Taken Yes -Exudate Amt Small -Exudate Type Serosanguineous -Wound Margin Distinct, Outline Attached -Granulation Amt Large (67-100%) -Granulation Quality Red -Necrosis Amt Small (1-33%) -Necrotic Tissue Type Adherent Slough -Structure Exposed N/A -Texture (Za-wound Skin Appearance) Scarring -Moisture (Za-wound Skin Appearance) No Abnormality -Color (Za-wound Skin Appearance) No Abnormality -Temperature (Za-wound Skin No Abnormality Appearance) (Pt Warm) -Tenderness on Palpation (Za-wound No Skin Appearance) -Ulcer Cleansing Soap and Water -Foul Odor after Cleansing No -Anesthetic Used 5% Lidocaine Gel Right Calf (cm) 48 Right Ankle (cm) 26 WC - Nurse 2 - General Ulcer CM Notes Start: 11/23/24 10:33 Freq: Status: Active Protocol: Activity Type Activity Date Activity User E-sign Co-sign Detail Recorded Client Recorded Date Recorded By Document 11/23/24 10:49 BM [id number] 11/23/24 10:53 BMF 11/23/24 10:49 Wound Center Nurse 2 #1 R Calf -Time 10:49 -Correct Patient Yes -Correct Side, Site, Position Yes -Correct Procedure Yes -Procedure Performed Yes -Type of Procedure Debridement -Clinical Debridement Subcutaneous -Tissue Removed Subcutaneous -Post Debridement (cm) - Length 0.8 -Post Debridement (cm) - Width 1.2 -Post Debridement (cm) - Depth 0.3 -Total Square (Post) (cm) 0.96 -Area of Debridement (cm) - Length 0.8 -Area of Debridement (cm) - Width 1.2 -Total Square (Area) (cm) 0.96 -Tunneling No -Undermining/Tunneling No -Circular Undermining No -Wound/Ulcer Outcome Not Healed -Ulcer Cleansing Rinsed/ Irrigated with Saline -Foul Odor after Cleansing No -Bioengineered Tissue No -Bleeding Controlled with Pressure -Treatment Response Procedure Tolerated Well -Debridement - Subq, 1st 20sq cm Yes Pain Scale: 0-10 Numeric Is Patient Pain Free? Yes - Nurse 3 - General Ulcer D/C NN Start: 11/23/24 10:33 Freq: Status: Active Protocol: Activity Type Activity Date Activity User E-sign Co-sign Detail Recorded Client Recorded Date Recorded By Document 11/23/24 11:00 DL [id number] 11/23/24 11:01 DL 11/23/24 11:00 Wound Care Center Nurse 3 #1 R Calf -Ulcer Cleansing Rinsed/ Irrigated with Saline -Foul Odor after Cleansing No -Primary Dressing Applied Aquacel Extra, NonAdherent Contact Layer, Silicone Border Foam 4x4 -Aquacel Extra 1 -Silicone Border Foam 4x4 1 RLE -Tubular Bandage Single Layer -Size of Tubigrip Used Size F -Size F ($) 1 Treatment Response Procedure Tolerated Well Pain Scale: 0-10 Numeric Is Patient Pain Free? Yes - Visit Discharge Discharge Condition Stable Ambulatory Status Ambulatory Transportation Private Auto Assessment/Plan Assessment/Plan (1) Nonhealing ulcer of right lower leg: CODE(S): L97.919 - Non-pressure chronic ulcer of unspecified part of rightlower leg with unspecified severity QUALIFIERS: Non-pressure ulcer stage: limited to breakdown of skin Qualified Code(s): L97.911 - Non-pressure chronic ulcer of unspecified part of right lower leg limited to breakdown of skin (2) Infected wound: CODE(S): T14.8XXA - Other injury of unspecified body region, initial encounter; L08.9 - Local infection of the skin and subcutaneous tissue, unspecified (3) Nonhealing nonsurgical wound: CODE(S): T14.8XXA - Other injury of unspecified body region, initial encounter (4) 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 Apply Aquacel extra moistened into wound base and cover with Adaptic then a foam dressing single-layer to be with his compression stocking over top follow-up in 1 weeks. 11/23/24 1151 <Electronically signed by Chacha Dunham NP, NP-C> Cosigner Signature (if applicable): CC: ~ Signed [facility] Work Phone: [phone]) [phone] Progress note [facility] [address] [place] [id number] Progress Note - Wound Care 11/23/24 1148 MR#: [id number] Acct: [id number] Name: STEPHANE TORIBIO Rep #:[id number] : 1960 64 From: Chacha Dunham NP FINANCIAL 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 Abimael Elizabeth, DO Status:RE G RCR Location: History of Present Illness Date of Service: 11/23/24 Chief Complaint: Right calf nonhealing wound History of Wound: This is a 63-year-old white male who states when he was a teenager he was in an [place] and got a thorn in his right calf and over the years part of it had come out but he feels like it is never healed. Though then he says about 3 months ago he felt that this really developed into something and now he wants to have a total knee and they will not touch him until he gets this taking care of. It is a scabbed area with some erythema around it it is sore to palpate and pressing down hard no foreign body can be felt by palpation. Patient has the certain insurance that were not allowed to debride on the first visit we can only look and see. Progress of Wound: The wound progression is slow patient's measurements are about the same as last week. He does not meet the criteria for an epi. Will continue using the Aquacel extra. Patient is compliant in using his compression stockings. Subjective Subjective Patient is agreeable to plan Objective Data Objective Data Measurements are about the same still has this reddened area going around the perimeter of the wound last cultures were negative we will wait and culture nextweek. Will continue with the Aquacel extra and see how it goes for another week. Patient had was missing for 2 weeks because he was on vacation and he stated he was on his legs a lot. Vital Signs: Vital Signs Temp Pulse Resp BP 97.6 F L 59 L 16 136/74 H 11/23/24 10:34 11/23/24 10:34 11/23/24 10:34 11/23/24 10:34 Lab / Micro Data Attestation: I reviewed the patient's lab results. Physical Exam Const oriented x3 General Appearance: cooperative Exam Limitations: no limitations HEENT normocephalic Head and Scalp: normal to inspection Face and Sinus: normal facial exam Nose: external nose normal General Ear: hearing grossly impaired External Ear: external ears normal Mouth: oral and palatal mucosa normal Eyes PERRL General Eye: normal appearance of both eyes Neck full ROM General: normal visual inspection Resp normal respiratory effort Effort and Inspection: able to speak in complete sentences Auscultation: clear to auscultation bilaterally Cardio regular rate and regular rhythm Palpation: normal PMI Rate: regular rate Rhythm: regular rhythm GI Auscultation: normoactive bowel sounds Palpation: soft and no hepatosplenomegaly external exam normal Back/Spine Cervical Spine: cervical ROM normal Thoracic Spine / Upper Back: normal to inspection Lumbar Spine / Lower Back: normal to inspection Extremity normal to inspection General Extremity: normal exam except as noted Skin Wound Narrative: Scabbed wound on right lateral calf with darkened erythema surrounding the perimeter Neuro oriented x3 Psych Appearance: grossly normal Speech: normal speech Thought Content: normal thought content Judgement: judgement good Debridement Note Debridement Note Wound debrided: Right lateral lower leg ulcer nonpressure Type of Debridement: Excisional debridement Anesthesia Used: 5% Lidocaine Gel Depth: Down to and including healthy tissue and in the subcutaneous layer Percentage of wound debrided: 100 Instrument Used: 5mm curette Tissue Removed: Fat layer and fibrin Severity: Fat Layer Exposed Amount of bleeding with debridement: Mild Bleeding Controlled with: Compression and gauze Patient tolerated procedure: Patient tolerated procedure well Post-Debridement Measurements and Additional Note: Post-Debridement Measurements/Treatment - Nurse 1 - General Ulcer Assessment Start: 11/23/24 10:33 Freq: Status: Active Protocol: LUIS ARMANDO Activity Type Activity Date Activity User E-sign Co-sign Detail Recorded Client Recorded Date Recorded By Document 11/23/24 10:34 DL [id number] 11/23/24 10:40 DL 11/23/24 10:34 WC - Today's Visit Information Type of service Follow-up Visit (Physician/STARCH TREATING ASSISTANT ) Arrival Mode Ambulatory Transfer Assistance None Patient Identification Verified (Name & Yes ) Patient Requires Transmission-Based No Precautions Vital Signs Temperature (97.8 F-99.1 F) 97.6 F L Temperature Source Temporal Pulse Rate (60-100) 59 L Pulse Location Monitor Respiratory Rate (12-18) 16 Blood Pressure (90/60-120/80) 136/74 H Blood Pressure Mean (mm Hg) 94 Source Monitor History Since Last Visit- (Skip if this is Patient's initial visit) Have you changed medications since your No last visit? Any new allergies or adverse reactions No Had a fall/change in ADL's that may No increase risk of falls Signs or symptoms of abuse and/or No neglect since last visit Have you been in the hospital since your No last visit? Has dressing in place as prescribed Yes Has compression in place as prescribed Yes Has offloadiing in place as prescribed N/A Experienced any changes in pain level or No management Pain Scale: 0-10 Numeric Is Patient Pain Free? Yes - Nurse 1 - General Ulcer Measurement Start: 11/23/24 10:33 Freq: Status: Active Protocol: Activity Type Activity Date Activity User E-sign Co-sign Detail Recorded Client Recorded Date Recorded By Document 11/23/24 10:34 DL [id number] 11/23/24 10:40 DL 11/23/24 10:34 Wound Center Nurse 1 #1 R Calf -Current Size (cm) - Length 0.7 -Current Size (cm) - Width 1.1 -Current Size (cm) - Depth 0.2 -Total Square Cm 0.77 -Photo Taken Yes -Exudate Amt Small -Exudate Type Serosanguineous -Wound Margin Distinct, Outline Attached -Granulation Amt Large (67-100%) -Granulation Quality Red -Necrosis Amt Small (1-33%) -Necrotic Tissue Type Adherent Slough -Structure Exposed N/A -Texture (Za-wound Skin Appearance) Scarring -Moisture (Za-wound Skin Appearance) No Abnormality -Color (Za-wound Skin Appearance) No Abnormality -Temperature (Za-wound Skin No Abnormality Appearance) (Pt Warm) -Tenderness on Palpation (Za-wound No Skin Appearance) -Ulcer Cleansing Soap and Water -Foul Odor after Cleansing No -Anesthetic Used 5% Lidocaine Gel Right Calf (cm) 48 Right Ankle (cm) 26 WC - Nurse 2 - General Ulcer CM Notes Start: 11/23/24 10:33 Freq: Status: Active Protocol: Activity Type Activity Date Activity User E-sign Co-sign Detail Recorded Client Recorded Date Recorded By Document 11/23/24 10:49 [facility] [id number] 11/23/24 10:53 [facility] 11/23/24 10:49 Wound Center Nurse 2 #1 R Calf -Time 10:49 -Correct Patient Yes -Correct Side, Site, Position Yes -Correct Procedure Yes -Procedure Performed Yes -Type of Procedure Debridement -Clinical Debridement Subcutaneous -Tissue Removed Subcutaneous -Post Debridement (cm) - Length 0.8 -Post Debridement (cm) - Width 1.2 -Post Debridement (cm) - Depth 0.3 -Total Square (Post) (cm) 0.96 -Area of Debridement (cm) - Length 0.8 -Area of Debridement (cm) - Width 1.2 -Total Square (Area) (cm) 0.96 -Tunneling No -Undermining/Tunneling No -Circular Undermining No -Wound/Ulcer Outcome Not Healed -Ulcer Cleansing Rinsed/ Irrigated with Saline -Foul Odor after Cleansing No -Bioengineered Tissue No -Bleeding Controlled with Pressure -Treatment Response Procedure Tolerated Well -Debridement - Subq, 1st 20sq cm Yes Pain Scale: 0-10 Numeric Is Patient Pain Free? Yes - Nurse 3 - General Ulcer D/C NN Start: 11/23/24 10:33 Freq: Status: Active Protocol: Activity Type Activity Date Activity User E-sign Co-sign Detail Recorded Client Recorded Date Recorded By Document 11/23/24 11:00 DL [id number] 11/23/24 11:01 DL 11/23/24 11:00 Wound Care Center Nurse 3 #1 R Calf -Ulcer Cleansing Rinsed/ Irrigated with Saline -Foul Odor after Cleansing No -Primary Dressing Applied Aquacel Extra, NonAdherent Contact Layer, Silicone Border Foam 4x4 -Aquacel Extra 1 -Silicone Border Foam 4x4 1 RLE -Tubular Bandage Single Layer -Size of Tubigrip Used Size F -Size F ($) 1 Treatment Response Procedure Tolerated Well Pain Scale: 0-10 Numeric Is Patient Pain Free? Yes WC - Visit Discharge Discharge Condition Stable Ambulatory Status Ambulatory Transportation Private Auto Assessment/Plan Assessment/Plan (1) Nonhealing ulcer of right lower leg: CODE(S): L97.919 - Non-pressure chronic ulcer of unspecified part of rightlower leg with unspecified severity QUALIFIERS: Non-pressure ulcer stage: limited to breakdown of skin Qualified Code(s): L97.911 - Non-pressure chronic ulcer of unspecified part of right lower leg limited to breakdown of skin (2) Infected wound: CODE(S): T14.8XXA - Other injury of unspecified body region, initial encounter; L08.9 - Local infection of the skin and subcutaneous tissue, unspecified (3) Nonhealing nonsurgical wound: CODE(S): T14.8XXA - Other injury of unspecified body region, initial encounter (4) 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 Apply Aquacel extra moistened into wound base and cover with Adaptic then a foam dressing single-layer to be with his compression stocking over top follow-up in 1 weeks. 11/23/24 1151 Cosigner Signature (if applicable): CC: ~ Signed [facility]07-30-2025 Progress note Author Chacha Dunham [facility] Note Date/Time November 09, 2024 11:5 2am [facility] [address] [place] [address] Progress Note - Wound Care 11/09/24 1148 MR#: [id number] Acct: [id number] Name: STEPHANE TORIBIO Rep #:[id number] : 1960 64 From: Chacha Dunham NP FINANCIAL 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 Abimael Elizabeth, DO Status:RE G RCR Location: History of Present Illness Date of Service: 11/09/24 Chief Complaint: Right calf nonhealing wound History of Wound: This is a 63-year-old white male who states when he was a teenager he was in an apple orchard and got a thorn in his right calf and over the years part of it had come out but he feels like it is never healed. Though then he says about 3 months ago he felt that this really developed into something and now he wants to have a total knee and they will not touch him until he gets this taking care of. It is a scabbed area with some erythema around it it is sore to palpate and pressing down hard no foreign body can be felt by palpation. Patient has the certain insurance that were not allowed to debride on the first visit we can only look and see. Progress of Wound: The wound is measuring the same as last week. Will continue wearing his Tubigrip's and Mook wraps which is his compression stockings over the top. 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 This next week will be going on vacation which means that he will be so sedentary and we discussed that I think that was holding him back is that he swelling and it is because he sits too much so with him being on vacation and more active I think we might see if he will in the next 2 weeks. Patient will be gone for 2 weeks on vacation and will wear compression stocking with Mook wrap over top. Subjective Subjective Patient is understanding about compression and how it is going to help him heal faster Objective Data Objective Data No sign of infection still has some depth still open we will continue with the Aquacel extra and compression. Vital Signs: Vital Signs Temp Pulse Resp BP O2 Del Method 97.2 F L 64 18 153/73 H Room Air 11/09/24 11:10 11/09/24 11:10 11/09/24 11:10 11/09/24 11:10 11/09/24 11:10 Oxygen Delivery Method Room Air Lab / Micro Data Attestation: I reviewed the patient's lab results. Micro: Microbiology 10/26/24 14:18 Wound - Leg, Right Gram Stain - Final 10/26/24 14:18 Wound - Leg, Right Wound Culture - Final No growth aerobically. 10/26/24 14:18 Wound - Leg, Right Anaerobic Culture - Final No growth in 5 days. Physical Exam Const oriented x3 General Appearance: cooperative Exam Limitations: no limitations HEENT normocephalic Head and Scalp: normal to inspection Face and Sinus: normal facial exam Nose: external nose normal General Ear: hearing grossly impaired External Ear: external ears normal Mouth: oral and palatal mucosa normal Eyes PERRL General Eye: normal appearance of both eyes Neck full ROM General: normal visual inspection Resp normal respiratory effort Effort and Inspection: able to speak in complete sentences Auscultation: clear to auscultation bilaterally Cardio regular rate and regular rhythm Palpation: normal PMI Rate: regular rate Rhythm: regular rhythm GI Auscultation: normoactive bowel sounds Palpation: soft and no hepatosplenomegaly external exam normal Back/Spine Cervical Spine: cervical ROM normal Thoracic Spine / Upper Back: normal to inspection Lumbar Spine / Lower Back: normal to inspection Extremity normal to inspection General Extremity: normal exam except as noted Skin Wound Narrative: Scabbed wound on right lateral calf with darkened erythema surrounding the perimeter Neuro oriented x3 Psych Appearance: grossly normal Speech: normal speech Thought Content: normal thought content Judgement: judgement good Debridement Note Debridement Note Wound debrided: Right lateral lower leg ulcer nonpressure Type of Debridement: Excisional debridement Anesthesia Used: 5% Lidocaine Gel Depth: Down to and including healthy tissue and in the subcutaneous layer Percentage of wound debrided: 100 Instrument Used: 5mm curette Tissue Removed: Fat layer and fibrin Severity: Fat Layer Exposed Amount of bleeding with debridement: Mild Bleeding Controlled with: Compression and gauze Patient tolerated procedure: Patient tolerated procedure well Post-Debridement Measurements and Additional Note: Post-Debridement Measurements/Treatment WC - Nurse 1 - General Ulcer Assessment Start: 10/12/24 10:37 Freq: Status: Active Protocol: LUIS ARMANDO Activity Type Activity Date Activity User E-sign Co-sign Detail Recorded Client Recorded Date Recorded By Document 10/12/24 10:38 DL [id number] 10/12/24 10:46 DL Document 10/26/24 10:27 ML [id number] 10/26/24 10:35 ML Document 11/02/24 10:57 ML [id number] 11/02/24 11:01 ML Document 11/09/24 11:10 NE [id number] 11/09/24 11:15 MT 10/12/24 10/26/24 11/02/24 10:38 10:27 10:57 - Today's Visit Information Type of service Follow-up Visit Follow-up Visit Follow-up Visit (Physician/STARCH TREATING ASSISTANT (Physician/STARCH TREATING ASSISTANT (Physician/STARCH TREATING ASSISTANT ) ) ) Arrival Mode Ambulatory Ambulatory Ambulatory Transfer Assistance None None None Accompanied by Patient Identification Verified (Name & Yes Yes Yes ) Patient Requires Transmission-Based No No No Precautions Safety Precautions Vital Signs Temperature (97.8 F-99.1 F) 97.6 F L 97.0 F L 97.6 F L Temperature Source Temporal Temporal Temporal Pulse Rate (60-100) 62 63 62 Pulse Location Monitor Monitor Monitor Respiratory Rate (12-18) 18 15 15 Respiratory rate source Observation Observation Observation Oxygen Delivery Method Blood Pressure (90/60-120/80) 149/76 H 149/70 H 144/64 H Blood Pressure Mean (mm Hg) 100 96 90 Source Monitor Monitor Monitor Position Sitting Sitting Blood Pressure Location Right Arm Right Arm History Since Last Visit- (Skip if this is Patient's initial visit) Have you changed medications since your No No No last visit? Any new allergies or adverse reactions No No No Had a fall/change in ADL's that may No No No increase risk of falls Signs or symptoms of abuse and/or No No neglect since last visit Have you been in the hospital since your No No No last visit? Has dressing in place as prescribed No Yes Yes Has compression in place as prescribed Yes Yes Yes Has offloadiing in place as prescribed N/A N/A N/A Experienced any changes in pain level or No No No management Left Footwear Right Footwear Pain Scale: 0-10 Numeric Is Patient Pain Free? Yes Yes Yes 11/09/24 11:10 - Today's Visit Information Type of service Follow-up Visit (Physician/STARCH TREATING ASSISTANT ) Arrival Mode Ambulatory Transfer Assistance Accompanied by self Patient Identification Verified (Name & Yes ) Patient Requires Transmission-Based Precautions Safety Precautions Fall Prevention Vital Signs Temperature (97.8 F-99.1 F) 97.2 F L Temperature Source Temporal Pulse Rate (60-100) 64 Pulse Location Monitor Respiratory Rate (12-18) 18 Respiratory rate source Observation Oxygen Delivery Method Room Air Blood Pressure (90/60-120/80) 153/73 H Blood Pressure Mean (mm Hg) 99 Source Monitor Position Sitting Blood Pressure Location Right Arm History Since Last Visit- (Skip if this is Patient's initial visit) Have you changed medications since your last visit? Any new allergies or adverse reactions Had a fall/change in ADL's that may increase risk of falls Signs or symptoms of abuse and/or neglect since last visit Have you been in the hospital since your last visit? Has dressing in place as prescribed Yes Has compression in place as prescribed Yes Has offloadiing in place as prescribed Yes Experienced any changes in pain level or Yes management Left Footwear Regular Shoe Right Footwear Regular Shoe Pain Scale: 0-10 Numeric Is Patient Pain Free? Yes WC - Nurse 1 - General Ulcer Measurement Start: 10/12/24 10:37 Freq: Status: Active Protocol: Activity Type Activity Date Activity User E-sign Co-sign Detail Recorded Client Recorded Date Recorded By Document 10/12/24 10:38 DL [id number] 10/12/24 10:46 DL Document 10/26/24 10:27 ML [id number] 10/26/24 10:35 ML Document 11/02/24 10:57 ML [id number] 11/02/24 11:01 ML Document 11/09/24 11:10 MT [id number] 11/09/24 11:15 MT 10/12/24 10/26/24 11/02/24 10:38 10:27 10:57 Wound Center Nurse 1 #1 R Calf -Current Size (cm) - Length 0.5 0.5 0.7 -Current Size (cm) - Width 0.6 0.5 1 -Current Size (cm) - Depth 0.1 0.1 0.2 -Total Square Cm 0.30 0.25 0.7 -Date of Last Picture (Recall this field) -Photo Taken Yes -Epithelialization -Tunneling -Undermining/Tunneling -Circular Undermining -Exudate Amt Small Small Medium -Exudate Type Serosanguineous Serous -Wound Margin Distinct, Outline Attached -Granulation Amt Large (67-100%) -Granulation Quality [place] -Slough/Fibrin Yes Yes -Necrosis Amt None Present (0 Small (1-33%) Small (1-33%) %) -Necrotic Tissue Type Adherent Slough Adherent Slough -Structure Exposed N/A -Texture (Za-wound Skin Appearance) Scarring Assessed Assessed -Moisture (Za-wound Skin Appearance) No Abnormality Maceration Assessed -Color (Za-wound Skin Appearance) No Abnormality Assessed Assessed -Temperature (Za-wound Skin No Abnormality No Abnormality No Abnormality Appearance) (Pt Warm) (Pt Warm) (Pt Warm) -Tenderness on Palpation (Za-wound No No No Skin Appearance) -Ulcer Cleansing Soap and Water Rinsed/ Rinsed/ Irrigated with Irrigated with Saline Saline -Foul Odor after Cleansing No No No -Anesthetic Used 5% Lidocaine 5% Lidocaine 5% Lidocaine Gel Gel Gel Right Calf (cm) 48.5 Right Ankle (cm) 24.4 11/09/24 11:10 Wound Center Nurse 1 #1 R Calf -Current Size (cm) - Length 0.7 -Current Size (cm) - Width 1.0 -Current Size (cm) - Depth 0.1 -Total Square Cm 0.70 -Date of Last Picture (Recall this 11/09/24 field) -Photo Taken Yes -Epithelialization Large 67-100% -Tunneling No -Undermining/Tunneling No -Circular Undermining No -Exudate Amt Medium -Exudate Type Serosanguineous -Wound Margin Flat & Intact -Granulation Amt Large (67-100%) -Granulation Quality Pale,[place] -Slough/Fibrin -Necrosis Amt Small (1-33%) -Necrotic Tissue Type Adherent Slough -Structure Exposed -Texture (Za-wound Skin Appearance) Assessed -Moisture (Za-wound Skin Appearance) Assessed -Color (Za-wound Skin Appearance) Assessed -Temperature (Za-wound Skin No Abnormality Appearance) (Pt Warm) -Tenderness on Palpation (Za-wound No Skin Appearance) -Ulcer Cleansing Soap and Water -Foul Odor after Cleansing No -Anesthetic Used 5% Lidocaine Gel Right Calf (cm) 48.5 Right Ankle (cm) 28.5 WC - Nurse 2 - General Ulcer CM Notes Start: 10/12/24 10:37 Freq: Status: Active Protocol: Activity Type Activity Date Activity User E-sign Co-sign Detail Recorded Client Recorded Date Recorded By Document 10/12/24 11:25 [facility] [id number] 10/12/24 11:34 BM Document 10/26/24 10:43 [facility] [id number] 10/26/24 10:50 [facility] Document 11/02/24 11:33 [facility] [id number] 11/02/24 11:35 [facility] Document 11/09/24 11:19 [facility] [id number] 11/09/24 11:25 [facility] 10/12/24 10/26/24 11/02/24 11:25 10:43 11:33 Wound Center Nurse 2 #1 R Calf -Time 11: 10:43 11:33 -Correct Patient Yes Yes Yes -Correct Side, Site, Position Yes Yes Yes -Correct Procedure Yes Yes Yes -Procedure Performed Yes Yes Yes -Type of Procedure Debridement Debridement Debridement -Clinical Debridement Muscle / Fascia Subcutaneous Subcutaneous -Tissue Removed Muscle,Fascia Subcutaneous Subcutaneous -Post Debridement (cm) - Length 0.7 0.5 0.7 -Post Debridement (cm) - Width 1 0.7 0.8 -Post Debridement (cm) - Depth 0.3 0.2 0.2 -Total Square (Post) (cm) 0.7 0.35 0.56 -Area of Debridement (cm) - Length 0.7 0.5 0.7 -Area of Debridement (cm) - Width 1 0.7 0.8 -Total Square (Area) (cm) 0.7 0.35 0.56 -Tunneling No No No -Undermining/Tunneling No No No -Circular Undermining No No No -Wound/Ulcer Outcome Not Healed Not Healed Not Healed -Ulcer Cleansing Rinsed/ Rinsed/ Rinsed/ Irrigated with Irrigated with Irrigated with Saline Saline Saline -Foul Odor after Cleansing No No No -Bioengineered Tissue No No No -Bleeding Controlled with Pressure Pressure Pressure -Treatment Response Procedure Procedure Procedure Tolerated Well Tolerated Well Tolerated Well -Debridement - Subq, 1st 20sq cm Yes Yes -Debridement - Muscle / Fascia, 1st Yes 20sq cm Pain Scale: 0-10 Numeric Is Patient Pain Free? Yes Yes Yes 11/09/24 11:19 Wound Center Nurse 2 #1 R Calf -Time 11:19 -Correct Patient Yes -Correct Side, Site, Position Yes -Correct Procedure Yes -Procedure Performed Yes -Type of Procedure Debridement -Clinical Debridement Subcutaneous -Tissue Removed Subcutaneous -Post Debridement (cm) - Length 0.7 -Post Debridement (cm) - Width 1.2 -Post Debridement (cm) - Depth 0.2 -Total Square (Post) (cm) 0.84 -Area of Debridement (cm) - Length 0.7 -Area of Debridement (cm) - Width 1.2 -Total Square (Area) (cm) 0.84 -Tunneling No -Undermining/Tunneling No -Circular Undermining No -Wound/Ulcer Outcome Not Healed -Ulcer Cleansing Rinsed/ Irrigated with Saline -Foul Odor after Cleansing No -Bioengineered Tissue No -Bleeding Controlled with Pressure -Treatment Response Procedure Tolerated Well -Debridement - Subq, 1st 20sq cm Yes -Debridement - Muscle / Fascia, 1st 20sq cm Pain Scale: 0-10 Numeric Is Patient Pain Free? Yes WC - Nurse 3 - General Ulcer D/C NN Start: 10/12/24 10:37 Freq: Status: Active Protocol: Activity Type Activity Date Activity User E-sign Co-sign Detail Recorded Client Recorded Date Recorded By Document 10/12/24 11:41 GM [id number] 10/12/24 11:42 GM Document 10/26/24 10:54 DL [id number] 10/26/24 10:56 DL Document 11/02/24 11:52 ML [id number] 11/02/24 11:53 ML Document 11/09/24 11:34 MT [id number] 11/09/24 11:37 MT Edit Result 11/09/24 11:34 MT (1) [id number] 11/09/24 11:39 MT (1) #1 R Calf - Silicone Border Foam 6x6 1 => 10/12/24 10/26/24 11/02/24 11:41 10:54 11:52 Wound Care Center Nurse 3 #1 R Calf -Ulcer Cleansing Not Cleansed Rinsed/ Rinsed/ Irrigated with Irrigated with Saline Saline -Foul Odor after Cleansing No No -Negative Pressure Wound Therapy -Primary Dressing Applied Aquacel AG 4x4, Aquacel Extra, Aquacel Extra, Silicone Border Silicone Border NonAdherent Foam 4x4 Foam 4x4 Contact Layer, Silicone Border Foam 4x4 -Other Dressing -Aquacel Extra 1 1 -Aquacel AG 4x4 1 -Silicone Border Foam 4x4 1 1 1 -Wound Comment(s) Dressing applied per Luis Velásquez today RLE -Lotion applied to leg before No compression wrap -Tubular Bandage Single Layer Single Layer -Size of Tubigrip Used Size F Size F -Size F ($) 1 1 Treatment Response Procedure Tolerated Well Pain Scale: 0-10 Numeric Is Patient Pain Free? Yes Yes Yes WC - Visit Discharge Discharge Condition Stable Stable Ambulatory Status Ambulatory Ambulatory Transportation Private Auto Private Auto 11/09/24 11:34 Wound Care Center Nurse 3 #1 R Calf -Ulcer Cleansing -Foul Odor after Cleansing No -Negative Pressure Wound Therapy N/A -Primary Dressing Applied Aquacel Extra, Silicone Border Foam 4x4 -Other Dressing adaptic -Aquacel Extra 1 -Aquacel AG 4x4 -Silicone Border Foam 4x4 1 -Wound Comment(s) RLE -Lotion applied to leg before compression wrap -Tubular Bandage Single Layer -Size of Tubigrip Used Size F -Size F ($) 1 Treatment Response Pain Scale: 0-10 Numeric Is Patient Pain Free? Yes WC - Visit Discharge Discharge Condition Ambulatory Status Transportation Assessment/Plan Assessment/Plan (1) Nonhealing ulcer of right lower leg: CODE(S): L97.919 - Non-pressure chronic ulcer of unspecified part of rightlower leg with unspecified severity QUALIFIERS: Non-pressure ulcer stage: limited to breakdown of skin Qualified Code(s): L97.911 - Non-pressure chronic ulcer of unspecified part of right lower leg limited to breakdown of skin (2) Infected wound: CODE(S): T14.8XXA - Other injury of unspecified body region, initial encounter; L08.9 - Local infection of the skin and subcutaneous tissue, unspecified (3) Nonhealing nonsurgical wound: CODE(S): T14.8XXA - Other injury of unspecified body region, initial encounter (4) 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 Apply Aquacel extra moistened into wound base and cover with Adaptic then a foam dressing single-layer to be with his compression stocking over top follow-up in 2 weeks. 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 acute November 09, 2024 11:00am Infected wound acute November 1:00pm Nonhealing nonsurgical wound acute December 08, 2024 1:00pm Nonhealing ulcer of right lower leg acute December 08 1:00pm Ulcer of right lower extremity with fat layer exposed acute December 08 1:00pm 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 acute December 08 1:00pm Bilateral lower extremity edema acute January 05, 2025 9:15am Ulcer of right lower extremity with fat layer exposed acute January 05, 2025 9:15am Hypertension chronic January 8:23am Intermittent palpitations chronic January 26, 2025 8:23am Morbid obesity with BMI of 40.0-44.9, adult chronic January 26, 8:23am NSVT (nonsustained ventricular tachycardia) chronic January 26, 2025 8:23am Sleep apnea chronic January 26, 2025 8:23am Ulcer of right lower extremity with fat layer exposed acute January 26 1:15pm [facility] [employer] Work Phone: [phone] 668-616607-30-2025 Progress note [facility] [address] [place] [address] Progress Note - Wound Care 11/09/24 1148 MR#: [id number] Acct: [id number] Name: STEPHANE TORIBIO Rep #:[id number] : 1960 64 From: Chacha Dunham NP FINANCIAL 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 Abimael Elizabeth, DO Status:RE G RCR Location: History of Present Illness Date of Service: 11/09/24 Chief Complaint: Right calf nonhealing wound History of Wound: This is a 63-year-old white male who states when he was a teenager he was in an [place] and got a thorn in his right calf and over the years part of it had come out but he feels like it is never healed. Though then he says about 3 months ago he felt that this really developed into something and now he wants to have a total knee and they will not touch him until he gets this taking care of. It is a scabbed area with some erythema around it it is sore to palpate and pressing down hard no foreign body can be felt by palpation. Patient has the certain insurance that were not allowed to debride on the first visit we can only look and see. Progress of Wound: The wound is measuring the same as last week. Will continue wearing his Tubigrip's and Mook wraps which is his compression stockings over the top. 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 This next week will be going on vacation which means that he will be so sedentary and we discussed that I think that was holding him back is that he swelling and it is because hesits too much so with him being on vacation and more active I think we might see if he will in the next 2 weeks. Patient will be gone for 2 weeks on vacation and will wear compression stocking with Mook wrap over top. Subjective Subjective Patient is understanding about compression and how it is going to help him heal faster Objective Data Objective Data No sign of infection still has some depth still open we will continue with the Aquacel extra and compression. Vital Signs: Vital Signs Temp Pulse Resp BP O2 Del Method 97.2 F L 64 18 153/73 H Room Air 11/09/24 11:10 11/09/24 11:10 11/09/24 11:10 11/09/24 11:10 11/09/24 11:10 Oxygen Delivery Method Room Air Lab / Micro Data Attestation: I reviewed the patient's lab results. Micro: Microbiology 10/26/24 14:18 Wound - Leg, Right Gram Stain - Final 10/26/24 14:18 Wound - Leg, Right Wound Culture - Final No growth aerobically. 10/26/24 14:18 Wound - Leg, Right Anaerobic Culture - Final No growth in 5 days. Physical Exam Const oriented x3 General Appearance: cooperative Exam Limitations: no limitations HEENT normocephalic Head and Scalp: normal to inspection Face and Sinus: normal facial exam Nose: external nose normal General Ear: hearing grossly impaired External Ear: external ears normal Mouth: oral and palatal mucosa normal Eyes PERRL General Eye: normal appearance of both eyes Neck full ROM General: normal visual inspection Resp normal respiratory effort Effort and Inspection: able to speak in complete sentences Auscultation: clear to auscultation bilaterally Cardio regular rate and regular rhythm Palpation: normal PMI Rate: regular rate Rhythm: regular rhythm GI Auscultation: normoactive bowel sounds Palpation: soft and no hepatosplenomegaly external exam normal Back/Spine Cervical Spine: cervical ROM normal Thoracic Spine / Upper Back: normal to inspection Lumbar Spine / Lower Back: normal to inspection Extremity normal to inspection General Extremity: normal exam except as noted Skin Wound Narrative: Scabbed wound on right lateral calf with darkened erythema surrounding the perimeter Neuro oriented x3 Psych Appearance: grossly normal Speech: normal speech Thought Content: normal thought content Judgement: judgement good Debridement Note Debridement Note Wound debrided: Right lateral lower leg ulcer nonpressure Type of Debridement: Excisional debridement Anesthesia Used: 5% Lidocaine Gel Depth: Down to and including healthy tissue and in the subcutaneous layer Percentage of wound debrided: 100 Instrument Used: 5mm curette Tissue Removed: Fat layer and fibrin Severity: Fat Layer Exposed Amount of bleeding with debridement: Mild Bleeding Controlled with: Compression and gauze Patient tolerated procedure: Patient tolerated procedure well Post-Debridement Measurements and Additional Note: Post-Debridement Measurements/Treatment - Nurse 1 - General Ulcer Assessment Start: 10/12/24 10:37 Freq: Status: Active Protocol: WC.LOWEXT Activity Type Activity Date Activity User E-sign Co-sign Detail Recorded Client Recorded Date Recorded By Document 10/12/24 10:38 DL [id number] 10/12/24 10:46 DL Document 10/26/24 10:27 ML [id number] 10/26/24 10:35 ML Document 11/02/24 10:57 ML [id number] 11/02/24 11:01 ML Document 11/09/24 11:10 MT [id number] 11/09/24 11:15 NE 10/12/24 10/26/24 11/02/24 10:38 10:27 10:57 - Today's Visit Information Type of service Follow-up Visit Follow-up Visit Follow-up Visit (Physician/STARCH TREATING ASSISTANT (Physician/STARCH TREATING ASSISTANT (Physician/STARCH TREATING ASSISTANT ) ) ) Arrival Mode Ambulatory Ambulatory Ambulatory Transfer Assistance None None None Accompanied by Patient Identification Verified (Name & Yes Yes Yes ) Patient Requires Transmission-Based No No No Precautions Safety Precautions Vital Signs Temperature (97.8 F-99.1 F) 97.6 F L 97.0 F L 97.6 F L Temperature Source Temporal Temporal Temporal Pulse Rate (60-100) 62 63 62 Pulse Location Monitor Monitor Monitor Respiratory Rate (12-18) 18 15 15 Respiratory rate source Observation Observation Observation Oxygen Delivery Method Blood Pressure (90/60-120/80) 149/76 H 149/70 H 144/64 H Blood Pressure Mean (mm Hg) 100 96 90 Source Monitor Monitor Monitor Position Sitting Sitting Blood Pressure Location Right Arm Right Arm History Since Last Visit- (Skip if this is Patient's initial visit) Have you changed medications since your No No No last visit? Any new allergies or adverse reactions No No No Had a fall/change in ADL's that may No No No increase risk of falls Signs or symptoms of abuse and/or No No neglect since last visit Have you been in the hospital since your No No No last visit? Has dressing in place as prescribed No Yes Yes Has compression in place as prescribed Yes Yes Yes Has offloadiing in place as prescribed N/A N/A N/A Experienced any changes in pain level or No No No management Left Footwear Right Footwear Pain Scale: 0-10 Numeric Is Patient Pain Free? Yes Yes Yes 11/09/24 11:10 - Today's Visit Information Type of service Follow-up Visit (Physician/STARCH TREATING ASSISTANT ) Arrival Mode Ambulatory Transfer Assistance Accompanied by self Patient Identification Verified (Name & Yes ) Patient Requires Transmission-Based Precautions Safety Precautions Fall Prevention Vital Signs Temperature (97.8 F-99.1 F) 97.2 F L Temperature Source Temporal Pulse Rate (60-100) 64 Pulse Location Monitor Respiratory Rate (12-18) 18 Respiratory rate source Observation Oxygen Delivery Method Room Air Blood Pressure (90/60-120/80) 153/73 H Blood Pressure Mean (mm Hg) 99 Source Monitor Position Sitting Blood Pressure Location Right Arm History Since Last Visit- (Skip if this is Patient's initial visit) Have you changed medications since your last visit? Any new allergies or adverse reactions Had a fall/change in ADL's that may increase risk of falls Signs or symptoms of abuse and/or neglect since last visit Have you been in the hospital since your last visit? Has dressing in place as prescribed Yes Has compression in place as prescribed Yes Has offloadiing in place as prescribed Yes Experienced any changes in pain level or Yes management Left Footwear Regular Shoe Right Footwear Regular Shoe Pain Scale: 0-10 Numeric Is Patient Pain Free? Yes WC - Nurse 1 - General Ulcer Measurement Start: 10/12/24 10:37 Freq: Status: Active Protocol: Activity Type Activity Date Activity User E-sign Co-sign Detail Recorded Client Recorded Date Recorded By Document 10/12/24 10:38 DL [id number] 10/12/24 10:46 DL Document 10/26/24 10:27 ML [id number] 10/26/24 10:35 ML Document 11/02/24 10:57 ML [id number] 11/02/24 11:01 ML Document 11/09/24 11:10 MT [id number] 11/09/24 11:15 MT 10/12/24 10/26/24 11/02/24 10:38 10:27 10:57 Wound Center Nurse 1 #1 R Calf -Current Size (cm) - Length 0.5 0.5 0.7 -Current Size (cm) - Width 0.6 0.5 1 -Current Size (cm) - Depth 0.1 0.1 0.2 -Total Square Cm 0.30 0.25 0.7 -Date of Last Picture (Recall this field) -Photo Taken Yes -Epithelialization -Tunneling -Undermining/Tunneling -Circular Undermining -Exudate Amt Small Small Medium -Exudate Type Serosanguineous Serous -Wound Margin Distinct, Outline Attached -Granulation Amt Large (67-100%) -Granulation Quality [place] -Slough/Fibrin Yes Yes -Necrosis Amt None Present (0 Small (1-33%) Small (1-33%) %) -Necrotic Tissue Type Adherent Slough Adherent Slough -Structure Exposed N/A -Texture (Za-wound Skin Appearance) Scarring Assessed Assessed -Moisture (Za-wound Skin Appearance) No Abnormality Maceration Assessed -Color (Za-wound Skin Appearance) No Abnormality Assessed Assessed -Temperature (Za-wound Skin No Abnormality No Abnormality No Abnormality Appearance) (Pt Warm) (Pt Warm) (Pt Warm) -Tenderness on Palpation (Za-wound No No No Skin Appearance) -Ulcer Cleansing Soap and Water Rinsed/ Rinsed/ Irrigated with Irrigated with Saline Saline -Foul Odor after Cleansing No No No -Anesthetic Used 5% Lidocaine 5% Lidocaine 5% Lidocaine Gel Gel Gel Right Calf (cm) 48.5 Right Ankle (cm) 24.4 11/09/24 11:10 Wound Center Nurse 1 #1 R Calf -Current Size (cm) - Length 0.7 -Current Size (cm) - Width 1.0 -Current Size (cm) - Depth 0.1 -Total Square Cm 0.70 -Date of Last Picture (Recall this 11/09/24 field) -Photo Taken Yes -Epithelialization Large 67-100% -Tunneling No -Undermining/Tunneling No -Circular Undermining No -Exudate Amt Medium -Exudate Type Serosanguineous -Wound Margin Flat & Intact -Granulation Amt Large (67-100%) -Granulation Quality Pale,[place] -Slough/Fibrin -Necrosis Amt Small (1-33%) -Necrotic Tissue Type Adherent Slough -Structure Exposed -Texture (Za-wound Skin Appearance) Assessed -Moisture (Za-wound Skin Appearance) Assessed -Color (Za-wound Skin Appearance) Assessed -Temperature (Za-wound Skin No Abnormality Appearance) (Pt Warm) -Tenderness on Palpation (Za-wound No Skin Appearance) -Ulcer Cleansing Soap and Water -Foul Odor after Cleansing No -Anesthetic Used 5% Lidocaine Gel Right Calf (cm) 48.5 Right Ankle (cm) 28.5 WC - Nurse 2 - General Ulcer CM Notes Start: 10/12/24 10:37 Freq: Status: Active Protocol: Activity Type Activity Date Activity User E-sign Co-sign Detail Recorded Client Recorded Date Recorded By Document 10/12/24 11:25 BM [id number] 10/12/24 11:34 BM Document 10/26/24 10:43 BM [id number] 10/26/24 10:50 BM Document 11/02/24 11:33 BM [id number] 11/02/24 11:35 BM Document 11/09/24 11:19 BMF [id number] 11/09/24 11:25 BMF 10/12/24 10/26/24 11/02/24 11:25 10:43 11:33 Wound Center Nurse 2 #1 R Calf -Time 11: 10:43 11:33 -Correct Patient Yes Yes Yes -Correct Side, Site, Position Yes Yes Yes -Correct Procedure Yes Yes Yes -Procedure Performed Yes Yes Yes -Type of Procedure Debridement Debridement Debridement -Clinical Debridement Muscle / Fascia Subcutaneous Subcutaneous -Tissue Removed Muscle,Fascia Subcutaneous Subcutaneous -Post Debridement (cm) - Length 0.7 0.5 0.7 -Post Debridement (cm) - Width 1 0.7 0.8 -Post Debridement (cm) - Depth 0.3 0.2 0.2 -Total Square (Post) (cm) 0.7 0.35 0.56 -Area of Debridement (cm) - Length 0.7 0.5 0.7 -Area of Debridement (cm) - Width 1 0.7 0.8 -Total Square (Area) (cm) 0.7 0.35 0.56 -Tunneling No No No -Undermining/Tunneling No No No -Circular Undermining No No No -Wound/Ulcer Outcome Not Healed Not Healed Not Healed -Ulcer Cleansing Rinsed/ Rinsed/ Rinsed/ Irrigated with Irrigated with Irrigated with Saline Saline Saline -Foul Odor after Cleansing No No No -Bioengineered Tissue No No No -Bleeding Controlled with Pressure Pressure Pressure -Treatment Response Procedure Procedure Procedure Tolerated Well Tolerated Well Tolerated Well -Debridement - Subq, 1st 20sq cm Yes Yes -Debridement - Muscle / Fascia, 1st Yes 20sq cm Pain Scale: 0-10 Numeric Is Patient Pain Free? Yes Yes Yes 11/09/24 11:19 Wound Center Nurse 2 #1 R Calf -Time 11:19 -Correct Patient Yes -Correct Side, Site, Position Yes -Correct Procedure Yes -Procedure Performed Yes -Type of Procedure Debridement -Clinical Debridement Subcutaneous -Tissue Removed Subcutaneous -Post Debridement (cm) - Length 0.7 -Post Debridement (cm) - Width 1.2 -Post Debridement (cm) - Depth 0.2 -Total Square (Post) (cm) 0.84 -Area of Debridement (cm) - Length 0.7 -Area of Debridement (cm) - Width 1.2 -Total Square (Area) (cm) 0.84 -Tunneling No -Undermining/Tunneling No -Circular Undermining No -Wound/Ulcer Outcome Not Healed -Ulcer Cleansing Rinsed/ Irrigated with Saline -Foul Odor after Cleansing No -Bioengineered Tissue No -Bleeding Controlled with Pressure -Treatment Response Procedure Tolerated Well -Debridement - Subq, 1st 20sq cm Yes -Debridement - Muscle / Fascia, 1st 20sq cm Pain Scale: 0-10 Numeric Is Patient Pain Free? Yes - Nurse 3 - General Ulcer D/C NN Start: 10/12/24 10:37 Freq: Status: Active Protocol: Activity Type Activity Date Activity User E-sign Co-sign Detail Recorded Client Recorded Date Recorded By Document 10/12/24 11:41 GM [id number] 10/12/24 11:42 GM Document 10/26/24 10:54 DL [id number] 10/26/24 10:56 DL Document 11/02/24 11:52 ML [id number] 11/02/24 11:53 ML Document 11/09/24 11:34 MT [id number] 11/09/24 11:37 MT Edit Result 11/09/24 11:34 MT (1) [id number] 11/09/24 11:39 MT (1) #1 R Calf - Silicone Border Foam 6x6 1 => 10/12/24 10/26/24 11/02/24 11:41 10:54 11:52 Wound Care Center Nurse 3 #1 R Calf -Ulcer Cleansing Not Cleansed Rinsed/ Rinsed/ Irrigated with Irrigated with Saline Saline -Foul Odor after Cleansing No No -Negative Pressure Wound Therapy -Primary Dressing Applied Aquacel AG 4x4, Aquacel Extra, Aquacel Extra, Silicone Border Silicone Border NonAdherent Foam 4x4 Foam 4x4 Contact Layer, Silicone Border Foam 4x4 -Other Dressing -Aquacel Extra 1 1 -Aquacel AG 4x4 1 -Silicone Border Foam 4x4 1 1 1 -Wound Comment(s) Dressing applied per Luis Velásquez today RLE -Lotion applied to leg before No compression wrap -Tubular Bandage Single Layer Single Layer -Size of Tubigrip Used Size F Size F -Size F ($) 1 1 Treatment Response Procedure Tolerated Well Pain Scale: 0-10 Numeric Is Patient Pain Free? Yes Yes Yes - Visit Discharge Discharge Condition Stable Stable Ambulatory Status Ambulatory Ambulatory Transportation Private Auto Private Auto 11/09/24 11:34 Wound Care Center Nurse 3 #1 R Calf -Ulcer Cleansing -Foul Odor after Cleansing No -Negative Pressure Wound Therapy N/A -Primary Dressing Applied Aquacel Extra, Silicone Border Foam 4x4 -Other Dressing adaptic -Aquacel Extra 1 -Aquacel AG 4x4 -Silicone Border Foam 4x4 1 -Wound Comment(s) RLE -Lotion applied to leg before compression wrap -Tubular Bandage Single Layer -Size of Tubigrip Used Size F -Size F ($) 1 Treatment Response Pain Scale: 0-10 Numeric Is Patient Pain Free? Yes WC - Visit Discharge Discharge Condition Ambulatory Status Transportation Assessment/Plan Assessment/Plan (1) Nonhealing ulcer of right lower leg: CODE(S): L97.919 - Non-pressure chronic ulcer of unspecified part of rightlower leg with unspecified severity QUALIFIERS: Non-pressure ulcer stage: limited to breakdown of skin Qualified Code(s): L97.911 - Non-pressure chronic ulcer of unspecified part of right lower leg limited to breakdown of skin (2) Infected wound: CODE(S): T14.8XXA - Other injury of unspecified body region, initial encounter; L08.9 - Local infection of the skin and subcutaneous tissue, unspecified (3) Nonhealing nonsurgical wound: CODE(S): T14.8XXA - Other injury of unspecified body region, initial encounter (4) 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 Apply Aquacel extra moistened into wound base and cover with Adaptic then a foam dressing single-layer to be with his compression stocking over top follow-up in 2 weeks. 11/09/24 1152 Cosigner Signature (if applicable): CC: ~ Signed [facility]07-23-2025 Progress note Author Chacha Dunham [facility] Note Date/Time November 02, 2024 12:1 5pm [facility] [address] [place] [address] Progress Note - Wound Care 11/02/24 1209 MR#: [id number] Acct: [id number] Name: STEPHANE TORIBIO Rep #:[id number] : 1960 64 From: Chacha Dunham NP FINANCIAL 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 Abimael Elizabeth, DO Status:RE G RCR Location: History of Present Illness Date of Service: 11/02/24 Chief Complaint: Right calf nonhealing wound History of Wound: This is a 63-year-old white male who states when he was a teenager he was in an apple orchard and got a thorn in his right calf and over the years part of it had come out but he feels like it is never healed. Though then he says about 3 months ago he felt that this really developed into something and now he wants to have a total knee and they will not touch him until he gets this taking care of. It is a scabbed area with some erythema around it it is sore to palpate and pressing down hard no foreign body can be felt by palpation. Patient has the certain insurance that were not allowed to debride on the first visit we can only look and see. Progress of Wound: The wound is measuring smaller and more shallow but still there and not much smaller so we can try using Aquacel extra with Adaptic over top and an [place] SAP on top continue wearing his Tubigrip's and Mook wraps which is his compression stockings over the top. He has a very sedentary job and he sits most of the daywhich is an issue. Subjective Subjective Patient has been cooperative with dressing changes Objective Data Objective Data Measurements are about the same we are going to try different changing the product and see if this works better using Aquacel extra rather than Xeroform. We inform patient that the cultures were negative. Reinforced because of his sedentary life he needs to get up and walk and move. Vital Signs: Vital Signs Temp Pulse Resp BP 97.6 F L 62 15 144/64 H 11/02/24 10:57 11/02/24 10:57 11/02/24 10:57 11/02/24 10:57 Lab / Micro Data Micro: Microbiology 10/26/24 14:18 Wound - Leg, Right Gram Stain - Final 10/26/24 14:18 Wound - Leg, Right Wound Culture - Final No growth aerobically. 10/26/24 14:18 Wound - Leg, Right Anaerobic Culture - Final No growth in 5 days. Physical Exam Const oriented x3 General Appearance: cooperative Exam Limitations: no limitations HEENT normocephalic Head and Scalp: normal to inspection Face and Sinus: normal facial exam Nose: external nose normal General Ear: hearing grossly impaired External Ear: external ears normal Mouth: oral and palatal mucosa normal Eyes PERRL General Eye: normal appearance of both eyes Neck full ROM General: normal visual inspection Resp normal respiratory effort Effort and Inspection: able to speak in complete sentences Auscultation: clear to auscultation bilaterally Cardio regular rate and regular rhythm Palpation: normal PMI Rate: regular rate Rhythm: regular rhythm GI Auscultation: normoactive bowel sounds Palpation: soft and no hepatosplenomegaly external exam normal Back/Spine Cervical Spine: cervical ROM normal Thoracic Spine / Upper Back: normal to inspection Lumbar Spine / Lower Back: normal to inspection Extremity normal to inspection General Extremity: normal exam except as noted Skin Wound Narrative: Scabbed wound on right lateral calf with darkened erythema surrounding the perimeter Neuro oriented x3 Psych Appearance: grossly normal Speech: normal speech Thought Content: normal thought content Judgement: judgement good Debridement Note Debridement Note Wound debrided: Right lateral lower leg ulcer nonpressure Type of Debridement: Excisional debridement Anesthesia Used: 5% Lidocaine Gel Depth: Down to and including healthy tissue and in the subcutaneous layer Percentage of wound debrided: 100 Instrument Used: 5mm curette Tissue Removed: Fat layer and fibrin Severity: Fat Layer Exposed Amount of bleeding with debridement: Mild Bleeding Controlled with: Compression and gauze Patient tolerated procedure: Patient tolerated procedure well Post-Debridement Measurements and Additional Note: Post-Debridement Measurements/Treatment - Nurse 1 - General Ulcer Assessment Start: 10/12/24 10:37 Freq: Status: Active Protocol: [email or web address] Activity Type Activity Date Activity User E-sign Co-sign Detail Recorded Client Recorded Date Recorded By Document 10/12/24 10:38 DL [id number] 10/12/24 10:46 DL Document 10/26/24 10:27 ML [id number] 10/26/24 10:35 ML Document 11/02/24 10:57 ML [id number] 11/02/24 11:01 ML 10/12/24 10/26/24 11/02/24 10:38 10:27 10:57 - Today's Visit Information Type of service Follow-up Visit Follow-up Visit Follow-up Visit (Physician/STARCH TREATING ASSISTANT (Physician/STARCH TREATING ASSISTANT (Physician/STARCH TREATING ASSISTANT ) ) ) Arrival Mode Ambulatory Ambulatory Ambulatory Transfer Assistance None None None Patient Identification Verified (Name & Yes Yes Yes ) Patient Requires Transmission-Based No No No Precautions Vital Signs Temperature (97.8 F-99.1 F) 97.6 F L 97.0 F L 97.6 F L Temperature Source Temporal Temporal Temporal Pulse Rate (60-100) 62 63 62 Pulse Location Monitor Monitor Monitor Respiratory Rate (12-18) 18 15 15 Respiratory rate source Observation Observation Observation Blood Pressure (90/60-120/80) 149/76 H 149/70 H 144/64 H Blood Pressure Mean (mm Hg) 100 96 90 Source Monitor Monitor Monitor Position Sitting Sitting Blood Pressure Location Right Arm Right Arm History Since Last Visit- (Skip if this is Patient's initial visit) Have you changed medications since your No No No last visit? Any new allergies or adverse reactions No No No Had a fall/change in ADL's that may No No No increase risk of falls Signs or symptoms of abuse and/or No No neglect since last visit Have you been in the hospital since your No No No last visit? Has dressing in place as prescribed No Yes Yes Has compression in place as prescribed Yes Yes Yes Has offloadiing in place as prescribed N/A N/A N/A Experienced any changes in pain level or No No No management Pain Scale: 0-10 Numeric Is Patient Pain Free? Yes Yes Yes WC - Nurse 1 - General Ulcer Measurement Start: 10/12/24 10:37 Freq: Status: Active Protocol: Activity Type Activity Date Activity User E-sign Co-sign Detail Recorded Client Recorded Date Recorded By Document 10/12/24 10:38 DL [id number] 10/12/24 10:46 DL Document 10/26/24 10:27 ML [id number] 10/26/24 10:35 ML Document 11/02/24 10:57 ML [id number] 11/02/24 11:01 ML 10/12/24 10/26/24 11/02/24 10:38 10:27 10:57 Wound Center Nurse 1 #1 R Calf -Current Size (cm) - Length 0.5 0.5 0.7 -Current Size (cm) - Width 0.6 0.5 1 -Current Size (cm) - Depth 0.1 0.1 0.2 -Total Square Cm 0.30 0.25 0.7 -Photo Taken Yes -Exudate Amt Small Small Medium -Exudate Type Serosanguineous Serous -Wound Margin Distinct, Outline Attached -Granulation Amt Large (67-100%) -Granulation Quality [place] -Slough/Fibrin Yes Yes -Necrosis Amt None Present (0 Small (1-33%) Small (1-33%) %) -Necrotic Tissue Type Adherent Slough Adherent Slough -Structure Exposed N/A -Texture (Za-wound Skin Appearance) Scarring Assessed Assessed -Moisture (Za-wound Skin Appearance) No Abnormality Maceration Assessed -Color (Za-wound Skin Appearance) No Abnormality Assessed Assessed -Temperature (Za-wound Skin No Abnormality No Abnormality No Abnormality Appearance) (Pt Warm) (Pt Warm) (Pt Warm) -Tenderness on Palpation (Za-wound No No No Skin Appearance) -Ulcer Cleansing Soap and Water Rinsed/ Rinsed/ Irrigated with Irrigated with Saline Saline -Foul Odor after Cleansing No No No -Anesthetic Used 5% Lidocaine 5% Lidocaine 5% Lidocaine Gel Gel Gel Right Calf (cm) 48.5 Right Ankle (cm) 24.4 WC - Nurse 2 - General Ulcer CM Notes Start: 10/12/24 10:37 Freq: Status: Active Protocol: Activity Type Activity Date Activity User E-sign Co-sign Detail Recorded Client Recorded Date Recorded By Document 10/12/24 11:25 [facility] [id number] 10/12/24 11:34 GetFeedback Document 10/26/24 10:43 GetFeedback [id number] 10/26/24 10:50 GetFeedback Document 11/02/24 11:33 GetFeedback [id number] 11/02/24 11:35 BM 10/12/24 10/26/24 11/02/24 11:25 10:43 11:33 Wound Center Nurse 2 #1 R Calf -Time 11:25 10:43 11:33 -Correct Patient Yes Yes Yes -Correct Side, Site, Position Yes Yes Yes -Correct Procedure Yes Yes Yes -Procedure Performed Yes Yes Yes -Type of Procedure Debridement Debridement Debridement -Clinical Debridement Muscle / Fascia Subcutaneous Subcutaneous -Tissue Removed Muscle,Fascia Subcutaneous Subcutaneous -Post Debridement (cm) - Length 0.7 0.5 0.7 -Post Debridement (cm) - Width 1 0.7 0.8 -Post Debridement (cm) - Depth 0.3 0.2 0.2 -Total Square (Post) (cm) 0.7 0.35 0.56 -Area of Debridement (cm) - Length 0.7 0.5 0.7 -Area of Debridement (cm) - Width 1 0.7 0.8 -Total Square (Area) (cm) 0.7 0.35 0.56 -Tunneling No No No -Undermining/Tunneling No No No -Circular Undermining No No No -Wound/Ulcer Outcome Not Healed Not Healed Not Healed -Ulcer Cleansing Rinsed/ Rinsed/ Rinsed/ Irrigated with Irrigated with Irrigated with Saline Saline Saline -Foul Odor after Cleansing No No No -Bioengineered Tissue No No No -Bleeding Controlled with Pressure Pressure Pressure -Treatment Response Procedure Procedure Procedure Tolerated Well Tolerated Well Tolerated Well -Debridement - Subq, 1st 20sq cm Yes Yes -Debridement - Muscle / Fascia, 1st Yes 20sq cm Pain Scale: 0-10 Numeric Is Patient Pain Free? Yes Yes Yes - Nurse 3 - General Ulcer D/C NN Start: 10/12/24 10:37 Freq: Status: Active Protocol: Activity Type Activity Date Activity User E-sign Co-sign Detail Recorded Client Recorded Date Recorded By Document 10/12/24 11:41 GM [id number] 10/12/24 11:42 GM Document 10/26/24 10:54 DL [id number] 10/26/24 10:56 DL Document 11/02/24 11:52 ML [id number] 11/02/24 11:53 ML 10/12/24 10/26/24 11/02/24 11:41 10:54 11:52 Wound Care Center Nurse 3 #1 R Calf -Ulcer Cleansing Not Cleansed Rinsed/ Rinsed/ Irrigated with Irrigated with Saline Saline -Foul Odor after Cleansing No No -Primary Dressing Applied Aquacel AG 4x4, Aquacel Extra, Aquacel Extra, Silicone Border Silicone Border NonAdherent Foam 4x4 Foam 4x4 Contact Layer, Silicone Border Foam 4x4 -Aquacel Extra 1 1 -Aquacel AG 4x4 1 -Silicone Border Foam 4x4 1 1 1 -Wound Comment(s) Dressing applied per Luis Velásquez today RLE -Lotion applied to leg before No compression wrap -Tubular Bandage Single Layer Single Layer -Size of Tubigrip Used Size F Size F -Size F ($) 1 1 Treatment Response Procedure Tolerated Well Pain Scale: 0-10 Numeric Is Patient Pain Free? Yes Yes Yes WC - Visit Discharge Discharge Condition Stable Stable Ambulatory Status Ambulatory Ambulatory Transportation Private Auto Private Auto Assessment/Plan Assessment/Plan (1) Nonhealing ulcer of right lower leg: CODE(S): L97.919 - Non-pressure chronic ulcer of unspecified part of rightlower leg with unspecified severity QUALIFIERS: Non-pressure ulcer stage: limited to breakdown of skin Qualified Code(s): L97.911 - Non-pressure chronic ulcer of unspecified part of right lower leg limited to breakdown of skin (2) Infected wound: CODE(S): T14.8XXA - Other injury of unspecified body region, initial encounter; L08.9 - Local infection of the skin and subcutaneous tissue, unspecified (3) Nonhealing nonsurgical wound: CODE(S): T14.8XXA - Other injury of unspecified body region, initial encounter (4) 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 Apply Aquacel extra moistened into wound base and cover with Adaptic then a foam dressing single-layer to be with his compression stocking over top follow-up in 1 weeks. Needs to ambulate more at work than just sitting all day. 11/02/24 1215 <Electronically signed by Chacha Dunham NP FINANCIAL PLANNING CONSULTANT-C> Cosigner Signature (if applicable): CC: ~ Signed [facility] Work Phone: [phone]) 365-397207-23-2025 Progress note [facility] [address] [place] [address] Progress Note - Wound Care 11/02/24 1209 MR#: [id number] Acct: [id number] Name: STEPHANE TORIBIO Rep #:[id number] : 1960 64 From: Chacha Dunham NP FINANCIAL 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 Abimael Elizabeth, DO Status:RE G RCR Location: History of Present Illness Date of Service: 11/02/24 Chief Complaint: Right calf nonhealing wound History of Wound: This is a 63-year-old white male who states when he was a teenager he was in an apple or[place] and got a thorn in his right calf and over the years part of it had come out but he feels like it is never healed. Though then he says about 3 months ago he felt that this really developed into something and now he wants to have a total knee and they will not touch him until he gets this taking care of. It is a scabbed area with some erythema around it it is sore to palpate and pressing down hard no foreign body can be felt by palpation. Patient has the certain insurance that were not allowed to debride on the first visit we can only look and see. Progress of Wound: The wound is measuring smaller and more shallow but still there and not much smaller so we can try using Aquacel extra with Adaptic over top and an [place] SAP on top continue wearing his Tubigrip's and Mook wraps which is his compression stockings over the top. He has a very sedentary job and he sitsmost of the daywhich is an issue. Subjective Subjective Patient has been cooperative with dressing changes Objective Data Objective Data Measurements are about the same we are going to try different changing the product and see if this works better using Aquacel extra rather than Xeroform. We inform patient that the cultures were negative. Reinforced because of his sedentary life he needs to get up and walk and move. Vital Signs: Vital Signs Temp Pulse Resp BP 97.6 F L 62 15 144/64 H 11/02/24 10:57 11/02/24 10:57 11/02/24 10:57 11/02/24 10:57 Lab / Micro Data Micro: Microbiology 10/26/24 14:18 Wound - Leg, Right Gram Stain - Final 10/26/24 14:18 Wound - Leg, Right Wound Culture - Final No growth aerobically. 10/26/24 14:18 Wound - Leg, Right Anaerobic Culture - Final No growth in 5 days. Physical Exam Const oriented x3 General Appearance: cooperative Exam Limitations: no limitations HEENT normocephalic Head and Scalp: normal to inspection Face and Sinus: normal facial exam Nose: external nose normal General Ear: hearing grossly impaired External Ear: external ears normal Mouth: oral and palatal mucosa normal Eyes PERRL General Eye: normal appearance of both eyes Neck full ROM General: normal visual inspection Resp normal respiratory effort Effort and Inspection: able to speak in complete sentences Auscultation: clear to auscultation bilaterally Cardio regular rate and regular rhythm Palpation: normal PMI Rate: regular rate Rhythm: regular rhythm GI Auscultation: normoactive bowel sounds Palpation: soft and no hepatosplenomegaly external exam normal Back/Spine Cervical Spine: cervical ROM normal Thoracic Spine / Upper Back: normal to inspection Lumbar Spine / Lower Back: normal to inspection Extremity normal to inspection General Extremity: normal exam except as noted Skin Wound Narrative: Scabbed wound on right lateral calf with darkened erythema surrounding the perimeter Neuro oriented x3 Psych Appearance: grossly normal Speech: normal speech Thought Content: normal thought content Judgement: judgement good Debridement Note Debridement Note Wound debrided: Right lateral lower leg ulcer nonpressure Type of Debridement: Excisional debridement Anesthesia Used: 5% Lidocaine Gel Depth: Down to and including healthy tissue and in the subcutaneous layer Percentage of wound debrided: 100 Instrument Used: 5mm curette Tissue Removed: Fat layer and fibrin Severity: Fat Layer Exposed Amount of bleeding with debridement: Mild Bleeding Controlled with: Compression and gauze Patient tolerated procedure: Patient tolerated procedure well Post-Debridement Measurements and Additional Note: Post-Debridement Measurements/Treatment - Nurse 1 - General Ulcer Assessment Start: 10/12/24 10:37 Freq: Status: Active Protocol: LUIS ARMANDO Activity Type Activity Date Activity User E-sign Co-sign Detail Recorded Client Recorded Date Recorded By Document 10/12/24 10:38 DL [id number] 10/12/24 10:46 DL Document 10/26/24 10:27 ML [id number] 10/26/24 10:35 ML Document 11/02/24 10:57 ML [id number] 11/02/24 11:01 ML 10/12/24 10/26/24 11/02/24 10:38 10:27 10:57 - Today's Visit Information Type of service Follow-up Visit Follow-up Visit Follow-up Visit (Physician/STARCH TREATING ASSISTANT (Physician/STARCH TREATING ASSISTANT (Physician/STARCH TREATING ASSISTANT ) ) ) Arrival Mode Ambulatory Ambulatory Ambulatory Transfer Assistance None None None Patient Identification Verified (Name & Yes Yes Yes ) Patient Requires Transmission-Based No No No Precautions Vital Signs Temperature (97.8 F-99.1 F) 97.6 F L 97.0 F L 97.6 F L Temperature Source Temporal Temporal Temporal Pulse Rate (60-100) 62 63 62 Pulse Location Monitor Monitor Monitor Respiratory Rate (12-18) 18 15 15 Respiratory rate source Observation Observation Observation Blood Pressure (90/60-120/80) 149/76 H 149/70 H 144/64 H Blood Pressure Mean (mm Hg) 100 96 90 Source Monitor Monitor Monitor Position Sitting Sitting Blood Pressure Location Right Arm Right Arm History Since Last Visit- (Skip if this is Patient's initial visit) Have you changed medications since your No No No last visit? Any new allergies or adverse reactions No No No Had a fall/change in ADL's that may No No No increase risk of falls Signs or symptoms of abuse and/or No No neglect since last visit Have you been in the hospital since your No No No last visit? Has dressing in place as prescribed No Yes Yes Has compression in place as prescribed Yes Yes Yes Has offloadiing in place as prescribed N/A N/A N/A Experienced any changes in pain level or No No No management Pain Scale: 0-10 Numeric Is Patient Pain Free? Yes Yes Yes WC - Nurse 1 - General Ulcer Measurement Start: 10/12/24 10:37 Freq: Status: Active Protocol: Activity Type Activity Date Activity User E-sign Co-sign Detail Recorded Client Recorded Date Recorded By Document 10/12/24 10:38 DL [id number] 10/12/24 10:46 DL Document 10/26/24 10:27 ML [id number] 10/26/24 10:35 ML Document 11/02/24 10:57 ML [id number] 11/02/24 11:01 ML 10/12/24 10/26/24 11/02/24 10:38 10:27 10:57 Wound Center Nurse 1 #1 R Calf -Current Size (cm) - Length 0.5 0.5 0.7 -Current Size (cm) - Width 0.6 0.5 1 -Current Size (cm) - Depth 0.1 0.1 0.2 -Total Square Cm 0.30 0.25 0.7 -Photo Taken Yes -Exudate Amt Small Small Medium -Exudate Type Serosanguineous Serous -Wound Margin Distinct, Outline Attached -Granulation Amt Large (67-100%) -Granulation Quality [place] -Slough/Fibrin Yes Yes -Necrosis Amt None Present (0 Small (1-33%) Small (1-33%) %) -Necrotic Tissue Type Adherent Slough Adherent Slough -Structure Exposed N/A -Texture (Za-wound Skin Appearance) Scarring Assessed Assessed -Moisture (Za-wound Skin Appearance) No Abnormality Maceration Assessed -Color (Za-wound Skin Appearance) No Abnormality Assessed Assessed -Temperature (Za-wound Skin No Abnormality No Abnormality No Abnormality Appearance) (Pt Warm) (Pt Warm) (Pt Warm) -Tenderness on Palpation (Za-wound No No No Skin Appearance) -Ulcer Cleansing Soap and Water Rinsed/ Rinsed/ Irrigated with Irrigated with Saline Saline -Foul Odor after Cleansing No No No -Anesthetic Used 5% Lidocaine 5% Lidocaine 5% Lidocaine Gel Gel Gel Right Calf (cm) 48.5 Right Ankle (cm) 24.4 WC - Nurse 2 - General Ulcer CM Notes Start: 10/12/24 10:37 Freq: Status: Active Protocol: Activity Type Activity Date Activity User E-sign Co-sign Detail Recorded Client Recorded Date Recorded By Document 10/12/24 11:25 [facility] [id number] 10/12/24 11:34 BM Document 10/26/24 10:43 GetFeedback [id number] 10/26/24 10:50 GetFeedback Document 11/02/24 11:33 GetFeedback [id number] 11/02/24 11:35 BMF 10/12/24 10/26/24 11/02/24 11:25 10:43 11:33 Wound Center Nurse 2 #1 R Calf -Time 11:25 10:43 11:33 -Correct Patient Yes Yes Yes -Correct Side, Site, Position Yes Yes Yes -Correct Procedure Yes Yes Yes -Procedure Performed Yes Yes Yes -Type of Procedure Debridement Debridement Debridement -Clinical Debridement Muscle / Fascia Subcutaneous Subcutaneous -Tissue Removed Muscle,Fascia Subcutaneous Subcutaneous -Post Debridement (cm) - Length 0.7 0.5 0.7 -Post Debridement (cm) - Width 1 0.7 0.8 -Post Debridement (cm) - Depth 0.3 0.2 0.2 -Total Square (Post) (cm) 0.7 0.35 0.56 -Area of Debridement (cm) - Length 0.7 0.5 0.7 -Area of Debridement (cm) - Width 1 0.7 0.8 -Total Square (Area) (cm) 0.7 0.35 0.56 -Tunneling No No No -Undermining/Tunneling No No No -Circular Undermining No No No -Wound/Ulcer Outcome Not Healed Not Healed Not Healed -Ulcer Cleansing Rinsed/ Rinsed/ Rinsed/ Irrigated with Irrigated with Irrigated with Saline Saline Saline -Foul Odor after Cleansing No No No -Bioengineered Tissue No No No -Bleeding Controlled with Pressure Pressure Pressure -Treatment Response Procedure Procedure Procedure Tolerated Well Tolerated Well Tolerated Well -Debridement - Subq, 1st 20sq cm Yes Yes -Debridement - Muscle / Fascia, 1st Yes 20sq cm Pain Scale: 0-10 Numeric Is Patient Pain Free? Yes Yes Yes - Nurse 3 - General Ulcer D/C NN Start: 10/12/24 10:37 Freq: Status: Active Protocol: Activity Type Activity Date Activity User E-sign Co-sign Detail Recorded Client Recorded Date Recorded By Document 10/12/24 11:41 GM [id number] 10/12/24 11:42 GM Document 10/26/24 10:54 DL [id number] 10/26/24 10:56 DL Document 11/02/24 11:52 ML [id number] 11/02/24 11:53 ML 10/12/24 10/26/24 11/02/24 11:41 10:54 11:52 Wound Care Center Nurse 3 #1 R Calf -Ulcer Cleansing Not Cleansed Rinsed/ Rinsed/ Irrigated with Irrigated with Saline Saline -Foul Odor after Cleansing No No -Primary Dressing Applied Aquacel AG 4x4, Aquacel Extra, Aquacel Extra, Silicone Border Silicone Border NonAdherent Foam 4x4 Foam 4x4 Contact Layer, Silicone Border Foam 4x4 -Aquacel Extra 1 1 -Aquacel AG 4x4 1 -Silicone Border Foam 4x4 1 1 1 -Wound Comment(s) Dressing applied per Luis Velásquez today RLE -Lotion applied to leg before No compression wrap -Tubular Bandage Single Layer Single Layer -Size of Tubigrip Used Size F Size F -Size F ($) 1 1 Treatment Response Procedure Tolerated Well Pain Scale: 0-10 Numeric Is Patient Pain Free? Yes Yes Yes WC - Visit Discharge Discharge Condition Stable Stable Ambulatory Status Ambulatory Ambulatory Transportation Private Auto Private Auto Assessment/Plan Assessment/Plan (1) Nonhealing ulcer of right lower leg: CODE(S): L97.919 - Non-pressure chronic ulcer of unspecified part of rightlower leg with unspecified severity QUALIFIERS: Non-pressure ulcer stage: limited to breakdown of skin Qualified Code(s): L97.911 - Non-pressure chronic ulcer of unspecified part of right lower leg limited to breakdown of skin (2) Infected wound: CODE(S): T14.8XXA - Other injury of unspecified body region, initial encounter; L08.9 - Local infection of the skin and subcutaneous tissue, unspecified (3) Nonhealing nonsurgical wound: CODE(S): T14.8XXA - Other injury of unspecified body region, initial encounter (4) 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 Apply Aquacel extra moistened into wound base and cover with Adaptic then a foam dressing single-layer to be with his compression stocking over top follow-up in 1 weeks. Needs to ambulate more at work than just sitting all day. 11/02/241214 Cosigner Signature (if applicable): CC: ~ Signed [facility]07-16-2025 Progress note Author Chacha Dunham [facility] Note Date/Time October 26, 2024 12:1 6pm [facility] [address] [place] [address] Progress Note - Wound Care 10/26/24 1213 MR#: [id number] Acct: [id number] Name: STEPHANE TORIBIO Rep #:[id number] : 1960 64 From: Chacha Dunham NP 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 Abimael Elizabeth, DO Status:RE G RCR Location: History of Present Illness Date of Service: 10/26/24 Chief Complaint: Right calf nonhealing wound History of Wound: This is a 63-year-old white male who states when he was a teenager he was in an [place] and got a thorn in his right calf and over the years part of it had come out but he feels like it is never healed. Though then he says about 3 months ago he felt that this really developed into something and now he wants to have a total knee and they will not touch him until he gets this taking care of. It is a scabbed area with some erythema around it it is sore to palpate and pressing down hard no foreign body can be felt by palpation. Patient has the certain insurance that were not allowed to debride on the first visit we can only look and see. Progress of Wound: So the Xeroform helps soften up the hardened crusted scab over wound we deroofed with a scalpel #15 blade and forceps for thick tenacious debris. Tolerated well. Irrigated with normal saline . Today we did culture will call back with culture results next week in the meantime he is to pack the area with AquaceL extra and moisten it and cover with a foam dressing and he is to wear double layer Tubigrip's or a single-layer Tubigrip with his compression stocking over top and he can follow- up in 1 weeks. Subjective Subjective Patient is very compliant with treatments and is doing well has no complaints the whole and the area is smaller this week flesh colored skin around the area no sign of infection noted no odor also Objective Data Objective Data Again the area looks good no sign of infection the measurements are smaller thanlast 2 weeks ago doing well denies any pain we will culture and send off and seeif there is anything growing. Vital Signs: Vital Signs Temp Pulse Resp BP 97.0 F L 63 15 149/70 H 10/26/24 10:27 10/26/24 10:27 10/26/24 10:27 10/26/24 10:27 Physical Exam Const oriented x3 General Appearance: cooperative Exam Limitations: no limitations HEENT normocephalic Head and Scalp: normal to inspection Face and Sinus: normal facial exam Nose: external nose normal General Ear: hearing grossly impaired External Ear: external ears normal Mouth: oral and palatal mucosa normal Eyes PERRL General Eye: normal appearance of both eyes Neck full ROM General: normal visual inspection Resp normal respiratory effort Effort and Inspection: able to speak in complete sentences Auscultation: clear to auscultation bilaterally Cardio regular rate and regular rhythm Palpation: normal PMI Rate: regular rate Rhythm: regular rhythm GI Auscultation: normoactive bowel sounds Palpation: soft and no hepatosplenomegaly external exam normal Back/Spine Cervical Spine: cervical ROM normal Thoracic Spine / Upper Back: normal to inspection Lumbar Spine / Lower Back: normal to inspection Extremity normal to inspection General Extremity: normal exam except as noted Skin Wound Narrative: Scabbed wound on right lateral calf with darkened erythema surrounding the perimeter Neuro oriented x3 Psych Appearance: grossly normal Speech: normal speech Thought Content: normal thought content Judgement: judgement good Debridement Note Debridement Note Wound debrided: Right lateral lower leg ulcer nonpressure Type of Debridement: Excisional debridement Anesthesia Used: 5% Lidocaine Gel Depth: Down to and including healthy tissue and in the subcutaneous layer Percentage of wound debrided: 100 Instrument Used: 5mm curette Tissue Removed: Fat layer and fibrin Severity: Fat Layer Exposed Amount of bleeding with debridement: Mild Bleeding Controlled with: Compression and gauze Patient tolerated procedure: Patient tolerated procedure well Post-Debridement Measurements and Additional Note: Post-Debridement Measurements/Treatment - Nurse 1 - General Ulcer Assessment Start: 10/12/24 10:37 Freq: Status: Active Protocol: [employer] Backlinks Activity Type Activity Date Activity User E-sign Co-sign Detail Recorded Client Recorded Date Recorded By Document 10/12/24 10:38 DL [id number] 10/12/24 10:46 DL Document 10/26/24 10:27 ML [id number] 10/26/24 10:35 ML 10/12/24 10/26/24 10:38 10:27 - Today's Visit Information Type of service Follow-up Visit Follow-up Visit (Physician/STARCH TREATING ASSISTANT (Physician/STARCH TREATING ASSISTANT ) ) Arrival Mode Ambulatory Ambulatory Transfer Assistance None None Patient Identification Verified (Name & Yes Yes ) Patient Requires Transmission-Based No No Precautions Vital Signs Temperature (97.8 F-99.1 F) 97.6 F L 97.0 F L Temperature Source Temporal Temporal Pulse Rate (60-100) 62 63 Pulse Location Monitor Monitor Respiratory Rate (12-18) 18 15 Respiratory rate source Observation Observation Blood Pressure (90/60-120/80) 149/76 H 149/70 H Blood Pressure Mean (mm Hg) 100 96 Source Monitor Monitor Position Sitting Blood Pressure Location Right Arm History Since Last Visit- (Skip if this is Patient's initial visit) Have you changed medications since your No No last visit? Any new allergies or adverse reactions No No Had a fall/change in ADL's that may No No increase risk of falls Signs or symptoms of abuse and/or No neglect since last visit Have you been in the hospital since your No No last visit? Has dressing in place as prescribed No Yes Has compression in place as prescribed Yes Yes Has offloadiing in place as prescribed N/A N/A Experienced any changes in pain level or No No management Pain Scale: 0-10 Numeric Is Patient Pain Free? Yes Yes WC - Nurse 1 - General Ulcer Measurement Start: 10/12/24 10:37 Freq: Status: Active Protocol: Activity Type Activity Date Activity User E-sign Co-sign Detail Recorded Client Recorded Date Recorded By Document 10/12/24 10:38 DL [id number] 10/12/24 10:46 DL Document 10/26/24 10:27 ML [id number] 10/26/24 10:35 ML 10/12/24 10/26/24 10:38 10:27 Wound Center Nurse 1 #1 R Calf -Current Size (cm) - Length 0.5 0.5 -Current Size (cm) - Width 0.6 0.5 -Current Size (cm) - Depth 0.1 0.1 -Total Square Cm 0.30 0.25 -Photo Taken Yes -Exudate Amt Small Small -Exudate Type Serosanguineous -Wound Margin Distinct, Outline Attached -Granulation Amt Large (67-100%) -Granulation Quality [place] -Slough/Fibrin Yes -Necrosis Amt None Present (0 Small (1-33%) %) -Necrotic Tissue Type Adherent Slough -Structure Exposed N/A -Texture (Za-wound Skin Appearance) Scarring Assessed -Moisture (Za-wound Skin Appearance) No Abnormality Maceration -Color (Za-wound Skin Appearance) No Abnormality Assessed -Temperature (Za-wound Skin No Abnormality No Abnormality Appearance) (Pt Warm) (Pt Warm) -Tenderness on Palpation (Za-wound No No Skin Appearance) -Ulcer Cleansing Soap and Water Rinsed/ Irrigated with Saline -Foul Odor after Cleansing No No -Anesthetic Used 5% Lidocaine 5% Lidocaine Gel Gel Right Calf (cm) 48.5 Right Ankle (cm) 24.4 WC - Nurse 2 - General Ulcer CM Notes Start: 10/12/24 10:37 Freq: Status: Active Protocol: Activity Type Activity Date Activity User E-sign Co-sign Detail Recorded Client Recorded Date Recorded By Document 10/12/24 11:25 BMF [id number] 10/12/24 11:34 BM Document 10/26/24 10:43 [facility] [id number] 10/26/24 10:50 F 10/12/24 10/26/24 11:25 10:43 Wound Center Nurse 2 #1 R Calf -Time 11:25 10:43 -Correct Patient Yes Yes -Correct Side, Site, Position Yes Yes -Correct Procedure Yes Yes -Procedure Performed Yes Yes -Type of Procedure Debridement Debridement -Clinical Debridement Muscle / Fascia Subcutaneous -Tissue Removed Muscle,Fascia Subcutaneous -Post Debridement (cm) - Length 0.7 0.5 -Post Debridement (cm) - Width 1 0.7 -Post Debridement (cm) - Depth 0.3 0.2 -Total Square (Post) (cm) 0.7 0.35 -Area of Debridement (cm) - Length 0.7 0.5 -Area of Debridement (cm) - Width 1 0.7 -Total Square (Area) (cm) 0.7 0.35 -Tunneling No No -Undermining/Tunneling No No -Circular Undermining No No -Wound/Ulcer Outcome Not Healed Not Healed -Ulcer Cleansing Rinsed/ Rinsed/ Irrigated with Irrigated with Saline Saline -Foul Odor after Cleansing No No -Bioengineered Tissue No No -Bleeding Controlled with Pressure Pressure -Treatment Response Procedure Procedure Tolerated Well Tolerated Well -Debridement - Subq, 1st 20sq cm Yes -Debridement - Muscle / Fascia, 1st Yes 20sq cm Pain Scale: 0-10 Numeric Is Patient Pain Free? Yes Yes WC - Nurse 3 - General Ulcer D/C NN Start: 10/12/24 10:37 Freq: Status: Active Protocol: Activity Type Activity Date Activity User E-sign Co-sign Detail Recorded Client Recorded Date Recorded By Document 10/12/24 11:41 GM [id number] 10/12/24 11:42 GM Document 10/26/24 10:54 DL [id number] 10/26/24 10:56 DL 10/12/24 10/26/24 11:41 10:54 Wound Care Center Nurse 3 #1 R Calf -Ulcer Cleansing Not Cleansed Rinsed/ Irrigated with Saline -Foul Odor after Cleansing No No -Primary Dressing Applied Aquacel AG 4x4, Aquacel Extra, Silicone Border Silicone Border Foam 4x4 Foam 4x4 -Aquacel Extra 1 -Aquacel AG 4x4 1 -Silicone Border Foam 4x4 1 1 -Wound Comment(s) Dressing applied per Luis Velásquez today RLE -Lotion applied to leg before No compression wrap -Tubular Bandage Single Layer Single Layer -Size of Tubigrip Used Size F Size F -Size F ($) 1 1 Treatment Response Procedure Tolerated Well Pain Scale: 0-10 Numeric Is Patient Pain Free? Yes Yes WC - Visit Discharge Discharge Condition Stable Stable Ambulatory Status Ambulatory Ambulatory Transportation Private Auto Private Auto Assessment/Plan Assessment/Plan (1) Nonhealing ulcer of right lower leg: CODE(S): L97.919 - Non-pressure chronic ulcer of unspecified part of rightlower leg with unspecified severity QUALIFIERS: Non-pressure ulcer stage: limited to breakdown of skin Qualified Code(s): L97.911 - Non-pressure chronic ulcer of unspecified part of right lower leg limited to breakdown of skin PLAN: Wash leg with Hibiclens or antibacterial soap and water pat dry. Apply Aquacel extra moistened into wound base and cover with a foam dressing single-layer to be with his compression stocking over top Will call with culture results and he can follow-up in 1 weeks. (2) Infected wound: CODE(S): T14.8XXA - Other injury of unspecified body region, initial encounter; L08.9 - Local infection of the skin and subcutaneous tissue, unspecified (3) Nonhealing nonsurgical wound: CODE(S): T14.8XXA - Other injury of unspecified body region, initial encounter 10/26/24 1216 <Electronically signed by Chacha MALDONADOC> Cosigner Signature (if applicable): CC: ~ Signed [facility] Work Phone: 1(225) 656-919507-16-2025 Progress note [facility] [address] [place] [address] Progress Note - Wound Care 10/26/24 1213 MR#: [id number] Acct: [id number] Name: STEPHANE TORIBIO Rep #:[id number] : 1960 64 From: Chacha MALDONADOC PCP: Dr. Abimael Elizabeth, DO Status:RE G RCR Location: History of Present Illness Date of Service: 10/26/24 Chief Complaint: Right calf nonhealing wound History of Wound: This is a 63-year-old white male who states when he was a teenager he was in an [place] and got a thorn in his right calf and over the years part of it had come out but he feels like it is never healed. Though then he says about 3 months ago he felt that this really developed into something and now he wants to have a total knee and they will not touch him until he gets this taking care of. It is a scabbed area with some erythema around it it is sore to palpate and pressing down hard no foreign body can be felt by palpation. Patient has the certain insurance that were not allowed to debride on the first visit we can only look and see. Progress of Wound: So the Xeroform helps soften up the hardened crusted scab over wound we deroofed with a scalpel #15blade and forceps for thick tenacious debris. Tolerated well. Irrigated with normal saline . Today we did culture will call back with culture results next week in the meantime he is to pack the area with AquaceL extra and moisten it and cover with a foam dressing and he is to wear double layer Tubig rip's or a single-layer Tubigrip with his compression stocking over top and he can follow-up in 1 weeks. Subjective Subjective Patient is very compliant with treatments and is doing well has no complaints the whole and the area is smaller this week flesh colored skin around the area no sign of infection noted no odor also Objective Data Objective Data Again the area looks good no sign of infection the measurements are smaller thanlast 2 weeks ago doing well denies any pain we will culture and send off and seeif there is anything growing. Vital Signs: Vital Signs Temp Pulse Resp BP 97.0 F L 63 15 149/70 H 10/26/24 10:27 10/26/24 10:27 10/26/24 10:27 10/26/24 10:27 Physical Exam Const oriented x3 General Appearance: cooperative Exam Limitations: no limitations HEENT normocephalic Head and Scalp: normal to inspection Face and Sinus: normal facial exam Nose: external nose normal General Ear: hearing grossly impaired External Ear: external ears normal Mouth: oral and palatal mucosa normal Eyes PERRL General Eye: normal appearance of both eyes Neck full ROM General: normal visual inspection Resp normal respiratory effort Effort and Inspection: able to speak in complete sentences Auscultation: clear to auscultation bilaterally Cardio regular rate and regular rhythm Palpation: normal PMI Rate: regular rate Rhythm: regular rhythm GI Auscultation: normoactive bowel sounds Palpation: soft and no hepatosplenomegaly external exam normal Back/Spine Cervical Spine: cervical ROM normal Thoracic Spine / Upper Back: normal to inspection Lumbar Spine / Lower Back: normal to inspection Extremity normal to inspection General Extremity: normal exam except as noted Skin Wound Narrative: Scabbed wound on right lateral calf with darkened erythema surrounding the perimeter Neuro oriented x3 Psych Appearance: grossly normal Speech: normal speech Thought Content: normal thought content Judgement: judgement good Debridement Note Debridement Note Wound debrided: Right lateral lower leg ulcer nonpressure Type of Debridement: Excisional debridement Anesthesia Used: 5% Lidocaine Gel Depth: Down to and including healthy tissue and in the subcutaneous layer Percentage of wound debrided: 100 Instrument Used: 5mm curette Tissue Removed: Fat layer and fibrin Severity: Fat Layer Exposed Amount of bleeding with debridement: Mild Bleeding Controlled with: Compression and gauze Patient tolerated procedure: Patient tolerated procedure well Post-Debridement Measurements and Additional Note: Post-Debridement Measurements/Treatment - Nurse 1 - General Ulcer Assessment Start: 10/12/24 10:37 Freq: Status: Active Protocol: LUIS ARMANDO Activity Type Activity Date Activity User E-sign Co-sign Detail Recorded Client Recorded Date Recorded By Document 10/12/24 10:38 DL [id number] 10/12/24 10:46 DL Document 10/26/24 10:27 ML [id number] 10/26/24 10:35 ML 10/12/24 10/26/24 10:38 10:27 - Today's Visit Information Type of service Follow-up Visit Follow-up Visit (Physician/STARCH TREATING ASSISTANT (Physician/STARCH TREATING ASSISTANT ) ) Arrival Mode Ambulatory Ambulatory Transfer Assistance None None Patient Identification Verified (Name & Yes Yes ) Patient Requires Transmission-Based No No Precautions Vital Signs Temperature (97.8 F-99.1 F) 97.6 F L 97.0 F L Temperature Source Temporal Temporal Pulse Rate (60-100) 62 63 Pulse Location Monitor Monitor Respiratory Rate (12-18) 18 15 Respiratory rate source Observation Observation Blood Pressure (90/60-120/80) 149/76 H 149/70 H Blood Pressure Mean (mm Hg) 100 96 Source Monitor Monitor Position Sitting Blood Pressure Location Right Arm History Since Last Visit- (Skip if this is Patient's initial visit) Have you changed medications since your No No last visit? Any new allergies or adverse reactions No No Had a fall/change in ADL's that may No No increase risk of falls Signs or symptoms of abuse and/or No neglect since last visit Have you been in the hospital since your No No last visit? Has dressing in place as prescribed No Yes Has compression in place as prescribed Yes Yes Has offloadiing in place as prescribed N/A N/A Experienced any changes in pain level or No No management Pain Scale: 0-10 Numeric Is Patient Pain Free? Yes Yes VISHNU - Nurse 1 - General Ulcer Measurement Start: 10/12/24 10:37 Freq: Status: Active Protocol: Activity Type Activity Date Activity User E-sign Co-sign Detail Recorded Client Recorded Date Recorded By Document 10/12/24 10:38 DL [id number] 10/12/24 10:46 DL Document 10/26/24 10:27 ML [id number] 10/26/24 10:35 ML 10/12/24 10/26/24 10:38 10:27 Wound Center Nurse 1 #1 R Calf -Current Size (cm) - Length 0.5 0.5 -Current Size (cm) - Width 0.6 0.5 -Current Size (cm) - Depth 0.1 0.1 -Total Square Cm 0.30 0.25 -Photo Taken Yes -Exudate Amt Small Small -Exudate Type Serosanguineous -Wound Margin Distinct, Outline Attached -Granulation Amt Large (67-100%) -Granulation Quality [place] -Slough/Fibrin Yes -Necrosis Amt None Present (0 Small (1-33%) %) -Necrotic Tissue Type Adherent Slough -Structure Exposed N/A -Texture (Za-wound Skin Appearance) Scarring Assessed -Moisture (Za-wound Skin Appearance) No Abnormality Maceration -Color (Za-wound Skin Appearance) No Abnormality Assessed -Temperature (Za-wound Skin No Abnormality No Abnormality Appearance) (Pt Warm) (Pt Warm) -Tenderness on Palpation (Za-wound No No Skin Appearance) -Ulcer Cleansing Soap and Water Rinsed/ Irrigated with Saline -Foul Odor after Cleansing No No -Anesthetic Used 5% Lidocaine 5% Lidocaine Gel Gel Right Calf (cm) 48.5 Right Ankle (cm) 24.4 WC - Nurse 2 - General Ulcer CM Notes Start: 10/12/24 10:37 Freq: Status: Active Protocol: Activity Type Activity Date Activity User E-sign Co-sign Detail Recorded Client Recorded Date Recorded By Document 10/12/24 11:25 [facility] [id number] 10/12/24 11:34 [facility] Document 10/26/24 10:43 [facility] [id number] 10/26/24 10:50 [facility] 10/12/24 10/26/24 11:25 10:43 Wound Center Nurse 2 #1 R Calf -Time 11:25 10:43 -Correct Patient Yes Yes -Correct Side, Site, Position Yes Yes -Correct Procedure Yes Yes -Procedure Performed Yes Yes -Type of Procedure Debridement Debridement -Clinical Debridement Muscle / Fascia Subcutaneous -Tissue Removed Muscle,Fascia Subcutaneous -Post Debridement (cm) - Length 0.7 0.5 -Post Debridement (cm) - Width 1 0.7 -Post Debridement (cm) - Depth 0.3 0.2 -Total Square (Post) (cm) 0.7 0.35 -Area of Debridement (cm) - Length 0.7 0.5 -Area of Debridement (cm) - Width 1 0.7 -Total Square (Area) (cm) 0.7 0.35 -Tunneling No No -Undermining/Tunneling No No -Circular Undermining No No -Wound/Ulcer Outcome Not Healed Not Healed -Ulcer Cleansing Rinsed/ Rinsed/ Irrigated with Irrigated with Saline Saline -Foul Odor after Cleansing No No -Bioengineered Tissue No No -Bleeding Controlled with Pressure Pressure -Treatment Response Procedure Procedure Tolerated Well Tolerated Well -Debridement - Subq, 1st 20sq cm Yes -Debridement - Muscle / Fascia, 1st Yes 20sq cm Pain Scale: 0-10 Numeric Is Patient Pain Free? Yes Yes - Nurse 3 - General Ulcer D/C NN Start: 10/12/24 10:37 Freq: Status: Active Protocol: Activity Type Activity Date Activity User E-sign Co-sign Detail Recorded Client Recorded Date Recorded By Document 10/12/24 11:41 [id number] 10/12/24 11:42 Document 10/26/24 10:54 DL [id number] 10/26/24 10:56 DL 10/12/24 10/26/24 11:41 10:54 Wound Care Center Nurse 3 #1 R Calf -Ulcer Cleansing Not Cleansed Rinsed/ Irrigated with Saline -Foul Odor after Cleansing No No -Primary Dressing Applied Aquacel AG 4x4, Aquacel Extra, Silicone Border Silicone Border Foam 4x4 Foam 4x4 -Aquacel Extra 1 -Aquacel AG 4x4 1 -Silicone Border Foam 4x4 1 1 -Wound Comment(s) Dressing applied per Luis Velásquez today RLE -Lotion applied to leg before No compression wrap -Tubular Bandage Single Layer Single Layer -Size of Tubigrip Used Size F Size F -Size F ($) 1 1 Treatment Response Procedure Tolerated Well Pain Scale: 0-10 Numeric Is Patient Pain Free? Yes Yes WC - Visit Discharge Discharge Condition Stable Stable Ambulatory Status Ambulatory Ambulatory Transportation Private Auto Private Auto Assessment/Plan Assessment/Plan (1) Nonhealing ulcer of right lower leg: CODE(S): L97.919 - Non-pressure chronic ulcer of unspecified part of rightlower leg with unspecified severity QUALIFIERS: Non-pressure ulcer stage: limited to breakdown of skin Qualified Code(s): L97.911 - Non-pressure chronic ulcer of unspecified part of right lower leg limited to breakdown of skin PLAN: Wash leg with Hibiclens or antibacterial soap and water pat dry. Apply Aquacel extra moistened into wound base and cover with a foam dressing single- layer to be with his compression stocking over top Will call with culture results and he can follow-up in 1 weeks. (2) Infected wound: CODE(S): T14.8XXA - Other injury of unspecified body region, initial encounter; L08.9 - Local infection of the skin and subcutaneous tissue, unspecified (3) Nonhealing nonsurgical wound: CODE(S): T14.8XXA - Other injury of unspecified body region, initial encounter 10/26/24 1216 Cosigner Signature (if applicable): CC: ~ Signed [facility]07-02-2025 Progress note Author Chacha Dunham [facility] Note Date/Time October 12, 2024 12:31 pm [facility] [address] [place] [id number] Progress Note - Wound Care 10/12/24 1226 MR#: [id number] Acct: [id number] Name: STEPHANE TORIBIO Rep #:[id number] : 1960 63 From: Chacha Dunham NP [employer]CIAL 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 Abimael Elizabeth, DO Status:RE G RCR Location: History of Present Illness Date of Service: 10/12/24 Chief Complaint: Right calf nonhealing wound History of Wound: This is a 63-year-old white male who states when he was a teenager he was in an [place] and got a thorn in his right calf and over the years part of it had come out but he feels like it is never healed. Though then he says about 3 months ago he felt that this really developed into something and now he wants to have a total knee and they will not touch him until he gets this taking care of. It is a scabbed area with some erythema around it it is sore to palpate and pressing down hard no foreign body can be felt by palpation. Patient has the certain insurance that were not allowed to debride on the first visit we can only look and see. Progress of Wound: So the Xeroform helps soften up the hardened crusted scab over wound we deroofedtoday with a scalpel #15 blade and forceps for thick tenacious debris. Tolerated well. Irrigated with normal saline and cultured area. Will call backwith culture results next week in the meantime he is to pack the area with Aquacel silver and moisten it and cover with a foam dressing and he is to wear double layer Tubigrip's or a single-layer Tubigrip with his compression stockingover top and he can follow-up in 2 weeks. Subjective Subjective Patient is agreeable to plan Objective Data Objective Data Will check for infection by getting cultures and we deroofed the area for thick bloody discharge fat layer and apparent. Vital Signs: Vital Signs Temp Pulse Resp BP 97.6 F L 62 18 149/76 H 10/12/24 10:38 10/12/24 10:38 10/12/24 10:38 10/12/24 10:38 Physical Exam Const oriented x3 General Appearance: cooperative Exam Limitations: no limitations HEENT normocephalic Head and Scalp: normal to inspection Face and Sinus: normal facial exam Nose: external nose normal General Ear: hearing grossly impaired External Ear: external ears normal Mouth: oral and palatal mucosa normal Eyes PERRL General Eye: normal appearance of both eyes Neck full ROM General: normal visual inspection Resp normal respiratory effort Effort and Inspection: able to speak in complete sentences Auscultation: clear to auscultation bilaterally Cardio regular rate and regular rhythm Palpation: normal PMI Rate: regular rate Rhythm: regular rhythm GI Auscultation: normoactive bowel sounds Palpation: soft and no hepatosplenomegaly external exam normal Back/Spine Cervical Spine: cervical ROM normal Thoracic Spine / Upper Back: normal to inspection Lumbar Spine / Lower Back: normal to inspection Extremity normal to inspection General Extremity: normal exam except as noted Skin Wound Narrative: Scabbed wound on right lateral calf with darkened erythema surrounding the perimeter Neuro oriented x3 Psych Appearance: grossly normal Speech: normal speech Thought Content: normal thought content Judgement: judgement good Debridement Note Debridement Note Wound debrided: Right lateral lower leg ulcer nonpressure Type of Debridement: Excisional debridement Anesthesia Used: 5% Lidocaine Gel Depth: Down to and including healthy tissue and in the subcutaneous layer Percentage of wound debrided: 100 Instrument Used: 7mm curette, #15 blade and Forceps Tissue Removed: Fat layer and fibrin and devitalized tissue Severity: Fat Layer Exposed Amount of bleeding with debridement: Mild Bleeding Controlled with: Compression and gauze Patient tolerated procedure: Patient tolerated procedure well Post-Debridement Measurements and Additional Note: Post-Debridement Measurements/Treatment VISHNU - Nurse 1 - General Ulcer Assessment Start: 10/12/24 10:37 Freq: Status: Active Protocol: LUIS ARMANDO Activity Type Activity Date Activity User E-sign Co-sign Detail Recorded Client Recorded Date Recorded By Document 10/12/24 10:38 DL [id number] 10/12/24 10:46 DL 10/12/24 10:38 - Today's Visit Information Type of service Follow-up 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 Any new allergies or adverse reactions No Had a fall/change in ADL's that may No increase risk of falls Signs or symptoms of abuse and/or No neglect since last visit Have you been in the hospital since your No last visit? Has dressing in place as prescribed No Has compression in place as prescribed Yes Has offloadiing in place as prescribed N/A Experienced any changes in pain level or No management Pain Scale: 0-10 Numeric Is Patient Pain Free? Yes - Nurse 1 - General Ulcer Measurement Start: 10/12/24 10:37 Freq: Status: Active Protocol: Activity Type Activity Date Activity User E-sign Co-sign Detail Recorded Client Recorded Date Recorded By Document 10/12/24 10:38 DL [id number] 10/12/24 10:46 DL 10/12/24 10:38 Wound Center Nurse 1 #1 R Calf -Current Size (cm) - Length 0.5 -Current Size (cm) - Width 0.6 -Current Size (cm) - Depth 0.1 -Total Square Cm 0.30 -Photo Taken Yes -Exudate Amt Small -Exudate Type Serosanguineous -Wound Margin Distinct, Outline Attached -Granulation Amt Large (67-100%) -Granulation Quality [place] -Necrosis Amt None Present (0 %) -Structure Exposed N/A -Texture (Za-wound Skin Appearance) Scarring -Moisture (Za-wound Skin Appearance) No Abnormality -Color (Za-wound Skin Appearance) No Abnormality -Temperature (Za-wound Skin No Abnormality Appearance) (Pt Warm) -Tenderness on Palpation (Za-wound No Skin Appearance) -Ulcer Cleansing Soap and Water -Foul Odor after Cleansing No -Anesthetic Used 5% Lidocaine Gel Right Calf (cm) 48.5 Right Ankle (cm) 24.4 - Nurse 2 - General Ulcer CM Notes Start: 10/12/24 10:37 Freq: Status: Active Protocol: Activity Type Activity Date Activity User E-sign Co-sign Detail Recorded Client Recorded Date Recorded By Document 10/12/24 11:25 [facility] [id number] 10/12/24 11:34 [facility] 10/12/24 11:25 Wound Center Nurse 2 #1 R Calf -Time 11:25 -Correct Patient Yes -Correct Side, Site, Position Yes -Correct Procedure Yes -Procedure Performed Yes -Type of Procedure Debridement -Clinical Debridement Muscle / Fascia -Tissue Removed Muscle,Fascia -Post Debridement (cm) - Length 0.7 -Post Debridement (cm) - Width 1 -Post Debridement (cm) - Depth 0.3 -Total Square (Post) (cm) 0.7 -Area of Debridement (cm) - Length 0.7 -Area of Debridement (cm) - Width 1 -Total Square (Area) (cm) 0.7 -Tunneling No -Undermining/Tunneling No -Circular Undermining No -Wound/Ulcer Outcome Not Healed -Ulcer Cleansing Rinsed/ Irrigated with Saline -Foul Odor after Cleansing No -Bioengineered Tissue No -Bleeding Controlled with Pressure -Treatment Response Procedure Tolerated Well -Debridement - Muscle / Fascia, 1st Yes 20sq cm Pain Scale: 0-10 Numeric Is Patient Pain Free? Yes - Nurse 3 - General Ulcer D/C NN Start: 10/12/24 10:37 Freq: Status: Active Protocol: Activity Type Activity Date Activity User E-sign Co-sign Detail Recorded Client Recorded Date Recorded By Document 10/12/24 11:41 [id number] 10/12/24 11:42 10/12/24 11:41 Wound Care Center Nurse 3 #1 R Calf -Ulcer Cleansing Not Cleansed -Foul Odor after Cleansing No -Primary Dressing Applied Aquacel AG 4x4, Silicone Border Foam 4x4 -Aquacel AG 4x4 1 -Silicone Border Foam 4x4 1 RLE -Lotion applied to leg before No compression wrap -Tubular Bandage Single Layer -Size of Tubigrip Used Size F -Size F ($) 1 Pain Scale: 0-10 Numeric Is Patient Pain Free? Yes - Visit Discharge Discharge Condition Stable Ambulatory Status Ambulatory Transportation Private Auto Assessment/Plan Assessment/Plan (1) Nonhealing ulcer of right lower leg: CODE(S): L97.919 - Non-pressure chronic ulcer of unspecified part of rightlower leg with unspecified severity QUALIFIERS: Non-pressure ulcer stage: limited to breakdown of skin Qualified Code(s): L97.911 - Non-pressure chronic ulcer of unspecified part of right lower leg limited to breakdown of skin PLAN: Wash leg with Hibiclens or antibacterial soap and water pat dry. Apply Aquacel silver moistened into wound base and cover with a foam dressing single-layer to be with his compression stocking over top Will call with culture results and he can follow-up in 2 weeks. (2) Infected wound: CODE(S): T14.8XXA - Other injury of unspecified body region, initial encounter; L08.9 - Local infection of the skin and subcutaneous tissue, unspecified (3) Nonhealing nonsurgical wound: CODE(S): T14.8XXA - Other injury of unspecified body region, initial encounter 10/12/24 1231 <Electronically signed by Chacha Dunham NP [employer]CIAL PLANNING CONSULTANT-C> Cosigner Signature (if applicable): CC: ~ Signed [facility] Work Phone: 1(936) 329-974307-02-2025 Progress note [facility] [address] [place] [address] Progress Note - Wound Care 10/12/24 1226 MR#: [id number] Acct: [id number] Name: STEPHANE TORIBIO Rep #:[id number] : 1960 63 From: Chacha Dunham NP [employer]CIAL 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 Abimael Elizabeth, DO Status:RE G RCR Location: History of Present Illness Date of Service: 10/12/24 Chief Complaint: Right calf nonhealing wound History of Wound: This is a 63-year-old white male who states when he was a teenager he was in an [place] and got a thorn in his right calf and over the years part of it had come out but he feels like it is never healed. Though then he says about 3 months ago he felt that this really developed into something and now he wants to have a total knee and they will not touch him until he gets this taking care of. It is a scabbed area with some erythema around it it is sore to palpate and pressing down hard no foreign body can be felt by palpation. Patient has the certain insurance that were not allowed to debride on the first visit we can only look and see. Progress of Wound: So the Xeroform helps soften up the hardened crusted scab over wound we deroofedtoday with a scalpel #15 blade and forceps for thick tenacious debris. Tolerated well. Irrigated with normal saline andcultured area. Will call backwith culture results next week in the meantime he is to pack the area with Aquacel silver and moisten it and cover with a foam dressing and he is to wear double layer Tubigrip's or a single-layer Tubigrip with his compression stockingover top and he can follow-up in 2 weeks. Subjective Subjective Patient is agreeable to plan Objective Data Objective Data Will check for infection by getting cultures and we deroofed the area for thick bloody discharge fat layer and apparent. Vital Signs: Vital Signs Temp Pulse Resp BP 97.6 F L 62 18 149/76 H 10/12/24 10:38 10/12/24 10:38 10/12/24 10:38 10/12/24 10:38 Physical Exam Const oriented x3 General Appearance: cooperative Exam Limitations: no limitations HEENT normocephalic Head and Scalp: normal to inspection Face and Sinus: normal facial exam Nose: external nose normal General Ear: hearing grossly impaired External Ear: external ears normal Mouth: oral and palatal mucosa normal Eyes PERRL General Eye: normal appearance of both eyes Neck full ROM General: normal visual inspection Resp normal respiratory effort Effort and Inspection: able to speak in complete sentences Auscultation: clear to auscultation bilaterally Cardio regular rate and regular rhythm Palpation: normal PMI Rate: regular rate Rhythm: regular rhythm GI Auscultation: normoactive bowel sounds Palpation: soft and no hepatosplenomegaly external exam normal Back/Spine Cervical Spine: cervical ROM normal Thoracic Spine / Upper Back: normal to inspection Lumbar Spine / Lower Back: normal to inspection Extremity normal to inspection General Extremity: normal exam except as noted Skin Wound Narrative: Scabbed wound on right lateral calf with darkened erythema surrounding the perimeter Neuro oriented x3 Psych Appearance: grossly normal Speech: normal speech Thought Content: normal thought content Judgement: judgement good Debridement Note Debridement Note Wound debrided: Right lateral lower leg ulcer nonpressure Type of Debridement: Excisional debridement Anesthesia Used: 5% Lidocaine Gel Depth: Down to and including healthy tissue and in the subcutaneous layer Percentage of wound debrided: 100 Instrument Used: 7mm curette, #15 blade and Forceps Tissue Removed: Fat layer and fibrin and devitalized tissue Severity: Fat Layer Exposed Amount of bleeding with debridement: Mild Bleeding Controlled with: Compression and gauze Patient tolerated procedure: Patient tolerated procedure well Post-Debridement Measurements and Additional Note: Post-Debridement Measurements/Treatment VISHNU - Nurse 1 - General Ulcer Assessment Start: 10/12/24 10:37 Freq: Status: Active Protocol: LUIS ARMANDO Activity Type Activity Date Activity User E-sign Co-sign Detail Recorded Client Recorded Date Recorded By Document 10/12/24 10:38 [email or web address] [id number] 10/12/24 10:46 DL 10/12/24 10:38 - Today's Visit Information Type of service Follow-up 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 Any new allergies or adverse reactions No Had a fall/change in ADL's that may No increase risk of falls Signs or symptoms of abuse and/or No neglect since last visit Have you been in the hospital since your No last visit? Has dressing in place as prescribed No Has compression in place as prescribed Yes Has offloadiing in place as prescribed N/A Experienced any changes in pain level or No management Pain Scale: 0-10 Numeric Is Patient Pain Free? Yes - Nurse 1 - General Ulcer Measurement Start: 10/12/24 10:37 Freq: Status: Active Protocol: Activity Type Activity Date Activity User E-sign Co-sign Detail Recorded Client Recorded Date Recorded By Document 10/12/24 10:38 [email or web address] [id number] 10/12/24 10:46 DL 10/12/24 10:38 Wound Center Nurse 1 #1 R Calf -Current Size (cm) - Length 0.5 -Current Size (cm) - Width 0.6 -Current Size (cm) - Depth 0.1 -Total Square Cm 0.30 -Photo Taken Yes -Exudate Amt Small -Exudate Type Serosanguineous -Wound Margin Distinct, Outline Attached -Granulation Amt Large (67-100%) -Granulation Quality [place] -Necrosis Amt None Present (0 %) -Structure Exposed N/A -Texture (Za-wound Skin Appearance) Scarring -Moisture (Za-wound Skin Appearance) No Abnormality -Color (Za-wound Skin Appearance) No Abnormality -Temperature (Za-wound Skin No Abnormality Appearance) (Pt Warm) -Tenderness on Palpation (Za-wound No Skin Appearance) -Ulcer Cleansing Soap and Water -Foul Odor after Cleansing No -Anesthetic Used 5% Lidocaine Gel Right Calf (cm) 48.5 Right Ankle (cm) 24.4 WC - Nurse 2 - General Ulcer CM Notes Start: 10/12/24 10:37 Freq: Status: Active Protocol: Activity Type Activity Date Activity User E-sign Co-sign Detail Recorded Client Recorded Date Recorded By Document 10/12/24 11:25 [facility] [id number] 10/12/24 11:34 [facility] 10/12/24 11:25 Wound Center Nurse 2 #1 R Calf -Time 11:25 -Correct Patient Yes -Correct Side, Site, Position Yes -Correct Procedure Yes -Procedure Performed Yes -Type of Procedure Debridement -Clinical Debridement Muscle / Fascia -Tissue Removed Muscle,Fascia -Post Debridement (cm) - Length 0.7 -Post Debridement (cm) - Width 1 -Post Debridement (cm) - Depth 0.3 -Total Square (Post) (cm) 0.7 -Area of Debridement (cm) - Length 0.7 -Area of Debridement (cm) - Width 1 -Total Square (Area) (cm) 0.7 -Tunneling No -Undermining/Tunneling No -Circular Undermining No -Wound/Ulcer Outcome Not Healed -Ulcer Cleansing Rinsed/ Irrigated with Saline -Foul Odor after Cleansing No -Bioengineered Tissue No -Bleeding Controlled with Pressure -Treatment Response Procedure Tolerated Well -Debridement - Muscle / Fascia, 1st Yes 20sq cm Pain Scale: 0-10 Numeric Is Patient Pain Free? Yes - Nurse 3 - General Ulcer D/C NN Start: 10/12/24 10:37 Freq: Status: Active Protocol: Activity Type Activity Date Activity User E-sign Co-sign Detail Recorded Client Recorded Date Recorded By Document 10/12/24 11:41 [id number] 10/12/24 11:42 10/12/24 11:41 Wound Care Center Nurse 3 #1 R Calf -Ulcer Cleansing Not Cleansed -Foul Odor after Cleansing No -Primary Dressing Applied Aquacel AG 4x4, Silicone Border Foam 4x4 -Aquacel AG 4x4 1 -Silicone Border Foam 4x4 1 RLE -Lotion applied to leg before No compression wrap -Tubular Bandage Single Layer -Size of Tubigrip Used Size F -Size F ($) 1 Pain Scale: 0-10 Numeric Is Patient Pain Free? Yes WC - Visit Discharge Discharge Condition Stable Ambulatory Status Ambulatory Transportation Private Auto Assessment/Plan Assessment/Plan (1) Nonhealing ulcer of right lower leg: CODE(S): L97.919 - Non-pressure chronic ulcer of unspecified part of rightlower leg with unspecified severity QUALIFIERS: Non-pressure ulcer stage: limited to breakdown of skin Qualified Code(s): L97.911 - Non-pressure chronic ulcer of unspecified part of right lower leg limited to breakdown of skin PLAN: Wash leg with Hibiclens or antibacterial soap and water pat dry. Apply Aquacel silver moistened into wound base and cover with a foam dressing single- layer to be with his compression stocking over top Will call with culture results and he can follow-up in 2 weeks. (2) Infected wound: CODE(S): T14.8XXA - Other injury of unspecified body region, initial encounter; L08.9 - Local infection of the skin and subcutaneous tissue, unspecified (3) Nonhealing nonsurgical wound: CODE(S): T14.8XXA - Other injury of unspecified body region, initial encounter 10/12/24 1231 Cosigner Signature (if applicable): CC: ~ Signed [facility]06-25-2025 History and physical note Author Chacha Dunham [facility] Note Date/Time October 05, 2024 12:1 5pm [facility] [address] [place] [id number] H&P Exam - Wound Care 10/05/24 1210 MR#: [id number] Acct: [id number] Name: STEPHANE TORIBIO Rep #:[id number] : 1960 63 From: Chacha Dunham NP FINANCIAL 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 Abimael Elizabeth, DO Status:RE G RCR Location: History of Present Illness Date of Service: 10/05/24 Chief Complaint: Right calf nonhealing wound History of Wound: This is a 63-year-old white male who states when he was a teenager he was in an [place] and got a thorn in his right calf and over the years part of it had come out but he feels like it is never healed. Though then he says about 3 months ago he felt that this really developed into something and now he wants to have a total knee and they will not touch him until he gets this taking care of. It is a scabbed area with some erythema around it it is sore to palpate and pressing down hard no foreign body can be felt by palpation. Patient has the certain insurance that were not allowed to debride on the first visit we can only look and see. [facility] Home Medications ?Medication ?Instructions ?Recorded ?Last Taken ?Type Lactobacillus 1 ea PO DAILY 11/26/17 Unkno wn History 41-B.animalis,bifid-FOS 111 mg (25 billion cell) capsule (Ultimate Probiotic-10) aspirin 81 mg chewable tablet 81 mg PO DAILY@0800 11/11 09/28 Unknown History cholecalciferol (vitamin D3) 25 1,000 unit PO DAILY Unknown History mcg (1,000 unit) capsule (Vitamin D3) esomeprazole magnesium 40 mg 40 mg PO DAILY 11/26/17 0 12/03/17 04:45 History capsule,delayed release (Nexium) 40 MG lidocaine-aloe vera 0.5 % topical 227 g TP PRN PRN CRE AM 11/26/17 Unknown History gel lisinopril 20 mg tablet 20 mg PO DAILY 11/26/17 08/06/28 04:45 History 20 MG loratadine 10 mg tablet (Allergy 10 mg PO DAILY Unknown History Relief (loratadine)) melatonin 5 mg capsule 5 mg PO QHS 11/26/17 Unknown History mometasone 50 mcg/actuation nasal 2 spray DAILY Unknown History spray (Nasonex) montelukast 10 mg tablet 10 mg PO DAILY 11/26/17 Unkn own History naproxen 250 mg tablet 250 mg PO BID 11/26/17 Unkno wn History omega-3 1,050 wl-kkb-xco-dpa-fish 1 ea PO DAILY Unknown History oil 1,200 mg capsule ([place]-3 2100) sertraline 25 mg tablet (Zoloft) 25 mg PO DAILY Unknown History tamsulosin 0.4 mg capsule 0.4 mg PO DAILY 11/26/17 Unk nown History vitamin B comp and C no.3 15 mg-10 1 ea PO DAILY 11/26 Unknown History mg-50 mg-5 mg-300 mg capsule (B Complex Plus Vitamin C) hydrocodone-acetaminophen 5-325mg 1 ea PO Q6H PRN PRN Pain 5 days 12/03/17 Unknown Rx 5mg-325mg #20 tabs Allergy/AdvReac Type Severity Reaction Status Date / Time No Known Allergies Allergy Verified 11/26/17 09:31 Social History Smoking Status: Former smoker ROS Constitutional Constitutional: Reports systems reviewed and no addt'l complaints, except as documented Eyes Eyes: Reports systems reviewed and no addt'l complaints, except as documented ENT HEENT: Reports systems reviewed and no addt'l complaints, except as documented Cardiovascular Cardiovascular: Reports systems reviewed and no addt'l complaints, except as documented Respiratory/Chest Respiratory/Chest: Reports systems reviewed and no addt'l complaints, except as documented Gastrointestinal Gastrointestinal: Reports systems reviewed and no addt'l complaints, except as documented Genitourinary Genitourinary: Reports systems reviewed and no addt'l complaints, except as documented Musculoskeletal Musculoskeletal: Reports systems reviewed and no addt'l complaints, except as documented Integumentary Integumentary: Reports wounds Neurologic Neurologic: Reports systems reviewed and no addt'l complaints, except as documented Psychiatric Psychiatric: Reports systems reviewed and no addt'l complaints, except as documented Endocrine Endocrinology: Reports systems reviewed and no addt'l complaints, except as documented Hematologic/Lymphatic Hematologic/Lymphatic: Reports systems reviewed and no addt'l complaints, exceptas documented Allergic/Immunologic Allergic/Immunologic: Reports systems reviewed and no addt'l complaints, except as documented Vital Signs Vital Signs Vital Signs: 10/05/24 10:26 Temperature 97.6 F L Temperature Source Temporal Pulse Rate 61 Respiratory Rate 18 Blood Pressure 139/84 H Blood Pressure Mean 102 Blood Pressure Source Monitor Blood Pressure Position Sitting Blood Pressure Location Right Arm Oxygen Delivery Method Room Air Physical Exam Const oriented x3 General Appearance: cooperative Exam Limitations: no limitations HEENT normocephalic Head and Scalp: normal to inspection Face and Sinus: normal facial exam Nose: external nose normal General Ear: hearing grossly impaired External Ear: external ears normal Mouth: oral and palatal mucosa normal Eyes PERRL General Eye: normal appearance of both eyes Neck full ROM General: normal visual inspection Resp normal respiratory effort Effort and Inspection: able to speak in complete sentences Auscultation: clear to auscultation bilaterally Cardio regular rate and regular rhythm Palpation: normal PMI Rate: regular rate Rhythm: regular rhythm GI Auscultation: normoactive bowel sounds Palpation: soft and no hepatosplenomegaly external exam normal Back/Spine Cervical Spine: cervical ROM normal Thoracic Spine / Upper Back: normal to inspection Lumbar Spine / Lower Back: normal to inspection Extremity normal to inspection General Extremity: normal exam except as noted Skin Wound Narrative: Scabbed wound on right lateral calf with darkened erythema surrounding the perimeter Neuro oriented x3 Psych Appearance: grossly normal Speech: normal speech Thought Content: normal thought content Judgement: judgement good Debridement Note Debridement Note No debridement was completed: No debridement was completed today Post-Debridement Measurements and Additional Note: Post-Debridement Measurements/Treatment WC - Nurse 1 - General Ulcer Assessment Start: 10/05/24 10:19 Freq: Status: Active Protocol: LUIS ARMANDO Activity Type Activity Date Activity User E-sign Co-sign Detail Recorded Client Recorded Date Recorded By Document 10/05/24 10:26 RAFAEL [id number] 10/05/24 10:32 DL 10/05/24 10:26 - Today's Visit Information Type of service Initial Visit Arrival Mode Ambulatory Accompanied by self Patient Identification Verified (Name & Yes ) Safety Precautions Fall Prevention Vital Signs Temperature (97.8 F-99.1 F) 97.6 F L Temperature Source Temporal Pulse Rate (60-100) 61 Pulse Location Monitor Respiratory Rate (12-18) 18 Respiratory rate source Observation Oxygen Delivery Method Room Air Blood Pressure (90/60-120/80) 139/84 H Blood Pressure Mean 102 Source Monitor Position Sitting Blood Pressure Location Right Arm History Since Last Visit- (Skip if this is Patient's initial visit) Has dressing in place as prescribed Yes Has compression in place as prescribed Yes Has offloadiing in place as prescribed Yes Experienced any changes in pain level or Yes management Left Footwear Regular Shoe Right Footwear Regular Shoe Pain Scale: 0-10 Numeric Is Patient Pain Free? Yes - Nurse 1 - General Ulcer Measurement Start: 10/05/24 10:19 Freq: Status: Active Protocol: Activity Type Activity Date Activity User E-sign Co-sign Detail Recorded Client Recorded Date Recorded By Document 10/05/24 10:26 DL [id number] 10/05/24 10:32 DL 10/05/24 10:26 Wound Center Nurse 1 #1 R Calf -Current Size (cm) - Length 0.1 -Current Size (cm) - Width 0.1 -Current Size (cm) - Depth 0.1 -Total Square Cm 0.01 -Date of Last Picture (Recall this 10/05/24 field) -Photo Taken Yes -Epithelialization Large 67-100% -Tunneling No -Undermining/Tunneling No -Circular Undermining No -Exudate Amt None Present -Wound Margin Flat & Intact -Granulation Amt Large (67-100%) -Granulation Quality Hyper- granulation -Slough/Fibrin No -Texture (Za-wound Skin Appearance) Assessed -Moisture (Za-wound Skin Appearance) Assessed -Color (Za-wound Skin Appearance) Assessed -Temperature (Za-wound Skin No Abnormality Appearance) (Pt Warm) -Tenderness on Palpation (Za-wound No Skin Appearance) -Ulcer Cleansing Soap and Water -Anesthetic Used 5% Lidocaine Gel Right Calf (cm) 49 Right Ankle (cm) 27 WC - Nurse 2 - General Ulcer CM Notes Start: 10/05/24 10:19 Freq: Status: Active Protocol: Activity Type Activity Date Activity User E-sign Co-sign Detail Recorded Client Recorded Date Recorded By Document 10/05/24 10:39 [facility] [id number] 10/05/24 10:44 [facility] 10/05/24 10:39 Wound Center Nurse 2 #1 R Calf -Time 10:39 -Procedure Performed No -Post Debridement (cm) - Length 0.3 -Post Debridement (cm) - Width 0.8 -Post Debridement (cm) - Depth 0.2 -Total Square (Post) (cm) 0.24 -Area of Debridement (cm) - Length 0.3 -Area of Debridement (cm) - Width 0.8 -Total Square (Area) (cm) 0.24 -Wound/Ulcer Outcome Not Healed -Bleeding Controlled with NA -Wound Comment(s) need to apply to insur for prior auth for debridement first Pain Scale: 0-10 Numeric Is Patient Pain Free? Yes WC - Nurse 3 - General Ulcer D/C NN Start: 10/05/24 10:19 Freq: Status: Active Protocol: Activity Type Activity Date Activity User E-sign Co-sign Detail Recorded Client Recorded Date Recorded By Document 10/05/24 10:52 DL [id number] 10/05/24 10:53 DL 10/05/24 10:52 Wound Care Center Nurse 3 #1 R Calf -Ulcer Cleansing Rinsed/ Irrigated with Saline -Foul Odor after Cleansing No -Primary Dressing Applied Silicone Border Foam 4x4 -Other Dressing xeroform -Silicone Border Foam 4x4 1 -Wound Comment(s) Dressing applied per K Tang. RLE -Tubular Bandage Double Layer -Size of Tubigrip Used Size F -Size F ($) 2 Treatment Response Procedure Tolerated Well Pain Scale: 0-10 Numeric Is Patient Pain Free? Yes WC - Visit Discharge Discharge Condition Stable Ambulatory Status Ambulatory Transportation Private Auto Assessment/Plan Assessment/Plan (1) Nonhealing ulcer of right lower leg: CODE(S): L97.919 - Non-pressure chronic ulcer of unspecified part of rightlower leg with unspecified severity QUALIFIERS: Non-pressure ulcer stage: limited to breakdown of skin Qualified Code(s): L97.911 - Non-pressure chronic ulcer of unspecified part of right lower leg limited to breakdown of skin PLAN: Wash leg with Hibiclens or antibacterial soap and water pat dry apply Xeroform to wound base and cover with Caliente SAP foam dressing every day. Follow-up in 1 week (2) Infected wound: CODE(S): T14.8XXA - Other injury of unspecified body region, initial encounter; L08.9 - Local infection of the skin and subcutaneous tissue, unspecified (3) Nonhealing nonsurgical wound: CODE(S): T14.8XXA - Other injury of unspecified body region, initial encounter 10/05/245 <Electronically signed by Chacha Dunham NP [employer]> Cosigner Signature (if applicable): CC: ~ Signed [facility] Work Phone: 1(668) 772-774006-25-2025 History and physical note [facility] [address] [place] [address] H&P Exam - Wound Care 10/05/24 1210 MR#: [id number] Acct: [id number] Name: STEPHANE TORIBIO Rep #:[id number] : 1960 63 From: Chacha Dunham NP 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 Abimael Elizabeth, DO Status:RE G RCR Location: History of Present Illness Date of Service: 10/05/24 Chief Complaint: Right calf nonhealing wound History of Wound: This is a 63-year-old white male who states when he was a teenager he [place] and got a thorn in his right calf and over the years part of it had come out but he feels like it is never healed. Though then he says about 3 months ago he felt that this really developed into something and now he wants to have a total knee and they will not touch him until he gets this taking care of. It is a scabbed area with some erythema around it it is sore to palpate and pressing down hard no foreign body can be felt by palpation. Patient has the certain insurance that were not allowed to debride on the first visit we can only look and see. [facility] Home Medications ?Medication ?Instructions ?Recorded ?Last Taken ?Type Lactobacillus 1 ea PO DAILY 11/26/17 Unkno wn History 41-B.animalis,bifid-FOS 111 mg (25 billion cell) capsule (Ultimate Probiotic-10) aspirin 81 mg chewable tablet 81 mg PO DAILY@0800 11/11 09/28 Unknown History cholecalciferol (vitamin D3) 25 1,000 unit PO DAILY Unknown History mcg (1,000 unit) capsule (Vitamin D3) esomeprazole magnesium 40 mg 40 mg PO DAILY 11/26/17 0 12/03/17 04:45 History capsule,delayed release (Nexium) 40 MG lidocaine-aloe vera 0.5 % topical 227 g TP PRN PRN CRE AM 11/26/17 Unknown History gel lisinopril 20 mg tablet 20 mg PO DAILY 11/26/1711/12 04:45 History 20 MG loratadine 10 mg tablet (Allergy 10 mg PO DAILY Unknown History Relief (loratadine)) melatonin 5 mg capsule 5 mg PO QHS 11/26/17 Unknown History mometasone 50 mcg/actuation nasal 2 spray DAILY Unknown History spray (Nasonex) montelukast 10 mg tablet 10 mg PO DAILY 11/26/17 Unkn own History naproxen 250 mg tablet 250 mg PO BID 11/26/17 Unkno wn History omega-3 1,050 ek-dog-xie-dpa-fish 1 ea PO DAILY Unknown History oil 1,200 mg capsule ([place]-3 2100) sertraline 25 mg tablet (Zoloft) 25 mg PO DAILY Unknown History tamsulosin 0.4 mg capsule 0.4 mg PO DAILY 11/26/17 Unk nown History vitamin B comp and C no.3 15 mg-10 1 ea PO DAILY 11/26 Unknown History mg-50 mg-5 mg-300 mg capsule (B Complex Plus Vitamin C) hydrocodone-acetaminophen 5-325mg 1 ea PO Q6H PRN PRN Pain 5 days 12/03/17 Unknown Rx 5mg-325mg #20 tabs Allergy/AdvReac Type Severity Reaction Status Date / Time No Known Allergies Allergy Verified 11/26/17 09:31 Social History Smoking Status: Former smoker ROS Constitutional Constitutional: Reports systems reviewed and no addt'l complaints, except as documented Eyes Eyes: Reports systems reviewed and no addt'l complaints, except as documented ENT HEENT: Reports systems reviewed and no addt'l complaints, except as documented Cardiovascular Cardiovascular: Reports systems reviewed and no addt'l complaints, except as documented Respiratory/Chest Respiratory/Chest: Reports systems reviewed and no addt'l complaints, except as documented Gastrointestinal Gastrointestinal: Reports systems reviewed and no addt'l complaints, except as documented Genitourinary Genitourinary: Reports systems reviewed and no addt'l complaints, except as documented Musculoskeletal Musculoskeletal: Reports systems reviewed and no addt'l complaints, except as documented Integumentary Integumentary: Reports wounds Neurologic Neurologic: Reports systems reviewed and no addt'l complaints, except as documented Psychiatric Psychiatric: Reports systems reviewed and no addt'l complaints, except as documented Endocrine Endocrinology: Reports systems reviewed and no addt'l complaints, except as documented Hematologic/Lymphatic Hematologic/Lymphatic: Reports systems reviewed and no addt'l complaints, exceptas documented Allergic/Immunologic Allergic/Immunologic: Reports systems reviewed and no addt'l complaints, except as documented Vital Signs Vital Signs Vital Signs: 10/05/24 10:26 Temperature 97.6 F L Temperature Source Temporal Pulse Rate 61 Respiratory Rate 18 Blood Pressure 139/84 H Blood Pressure Mean 102 Blood Pressure Source Monitor Blood Pressure Position Sitting Blood Pressure Location Right Arm Oxygen Delivery Method Room Air Physical Exam Const oriented x3 General Appearance: cooperative Exam Limitations: no limitations HEENT normocephalic Head and Scalp: normal to inspection Face and Sinus: normal facial exam Nose: external nose normal General Ear: hearing grossly impaired External Ear: external ears normal Mouth: oral and palatal mucosa normal Eyes PERRL General Eye: normal appearance of both eyes Neck full ROM General: normal visual inspection Resp normal respiratory effort Effort and Inspection: able to speak in complete sentences Auscultation: clear to auscultation bilaterally Cardio regular rate and regular rhythm Palpation: normal PMI Rate: regular rate Rhythm: regular rhythm GI Auscultation: normoactive bowel sounds Palpation: soft and no hepatosplenomegaly external exam normal Back/Spine Cervical Spine: cervical ROM normal Thoracic Spine / Upper Back: normal to inspection Lumbar Spine / Lower Back: normal to inspection Extremity normal to inspection General Extremity: normal exam except as noted Skin Wound Narrative: Scabbed wound on right lateral calf with darkened erythema surrounding the perimeter Neuro oriented x3 Psych Appearance: grossly normal Speech: normal speech Thought Content: normal thought content Judgement: judgement good Debridement Note Debridement Note No debridement was completed: No debridement was completed today Post-Debridement Measurements and Additional Note: Post-Debridement Measurements/Treatment VISHNU - Nurse 1 - General Ulcer Assessment Start: 10/05/24 10:19 Freq: Status: Active Protocol: LUIS ARMANDO Activity Type Activity Date Activity User E-sign Co-sign Detail Recorded Client Recorded Date Recorded By Document 10/05/24 10:26 DL [id number] 10/05/24 10:32 DL 10/05/24 10:26 - Today's Visit Information Type of service Initial Visit Arrival Mode Ambulatory Accompanied by self Patient Identification Verified (Name & Yes ) Safety Precautions Fall Prevention Vital Signs Temperature (97.8 F-99.1 F) 97.6 F L Temperature Source Temporal Pulse Rate (60-100) 61 Pulse Location Monitor Respiratory Rate (12-18) 18 Respiratory rate source Observation Oxygen Delivery Method Room Air Blood Pressure (90/60-120/80) 139/84 H Blood Pressure Mean 102 Source Monitor Position Sitting Blood Pressure Location Right Arm History Since Last Visit- (Skip if this is Patient's initial visit) Has dressing in place as prescribed Yes Has compression in place as prescribed Yes Has offloadiing in place as prescribed Yes Experienced any changes in pain level or Yes management Left Footwear Regular Shoe Right Footwear Regular Shoe Pain Scale: 0-10 Numeric Is Patient Pain Free? Yes WC - Nurse 1 - General Ulcer Measurement Start: 10/05/24 10:19 Freq: Status: Active Protocol: Activity Type Activity Date Activity User E-sign Co-sign Detail Recorded Client Recorded Date Recorded By Document 10/05/24 10:26 DL [id number] 10/05/24 10:32 DL 10/05/24 10:26 Wound Center Nurse 1 #1 R Calf -Current Size (cm) - Length 0.1 -Current Size (cm) - Width 0.1 -Current Size (cm) - Depth 0.1 -Total Square Cm 0.01 -Date of Last Picture (Recall this 10/05/24 field) -Photo Taken Yes -Epithelialization Large 67-100% -Tunneling No -Undermining/Tunneling No -Circular Undermining No -Exudate Amt None Present -Wound Margin Flat & Intact -Granulation Amt Large (67-100%) -Granulation Quality Hyper- granulation -Slough/Fibrin No -Texture (Za-wound Skin Appearance) Assessed -Moisture (Za-wound Skin Appearance) Assessed -Color (Za-wound Skin Appearance) Assessed -Temperature (Za-wound Skin No Abnormality Appearance) (Pt Warm) -Tenderness on Palpation (Za-wound No Skin Appearance) -Ulcer Cleansing Soap and Water -Anesthetic Used 5% Lidocaine Gel Right Calf (cm) 49 Right Ankle (cm) 27 WC - Nurse 2 - General Ulcer CM Notes Start: 10/05/24 10:19 Freq: Status: Active Protocol: Activity Type Activity Date Activity User E-sign Co-sign Detail Recorded Client Recorded Date Recorded By Document 10/05/24 10:39 BM [id number] 10/05/24 10:44 BMF 10/05/24 10:39 Wound Center Nurse 2 #1 R Calf -Time 10:39 -Procedure Performed No -Post Debridement (cm) - Length 0.3 -Post Debridement (cm) - Width 0.8 -Post Debridement (cm) - Depth 0.2 -Total Square (Post) (cm) 0.24 -Area of Debridement (cm) - Length 0.3 -Area of Debridement (cm) - Width 0.8 -Total Square (Area) (cm) 0.24 -Wound/Ulcer Outcome Not Healed -Bleeding Controlled with NA -Wound Comment(s) need to apply to insur for prior auth for debridement first Pain Scale: 0-10 Numeric Is Patient Pain Free? Yes - Nurse 3 - General Ulcer D/C NN Start: 10/05/24 10:19 Freq: Status: Active Protocol: Activity Type Activity Date Activity User E-sign Co-sign Detail Recorded Client Recorded Date Recorded By Document 10/05/24 10:52 DL [id number] 10/05/24 10:53 DL 10/05/24 10:52 Wound Care Center Nurse 3 #1 R Calf -Ulcer Cleansing Rinsed/ Irrigated with Saline -Foul Odor after Cleansing No -Primary Dressing Applied Silicone Border Foam 4x4 -Other Dressing xeroform -Silicone Border Foam 4x4 1 -Wound Comment(s) Dressing applied per Mina Beckwith. RLE -Tubular Bandage Double Layer -Size of Tubigrip Used Size F -Size F ($) 2 Treatment Response Procedure Tolerated Well Pain Scale: 0-10 Numeric Is Patient Pain Free? Yes - Visit Discharge Discharge Condition Stable Ambulatory Status Ambulatory Transportation Private Auto Assessment/Plan Assessment/Plan (1) Nonhealing ulcer of right lower leg: CODE(S): L97.919 - Non-pressure chronic ulcer of unspecified part of rightlower leg with unspecified severity QUALIFIERS: Non-pressure ulcer stage: limited to breakdown of skin Qualified Code(s): L97.911 - Non-pressure chronic ulcer of unspecified part of right lower leg limited to breakdown of skin PLAN: Wash leg with Hibiclens or antibacterial soap and water pat dry apply Xeroform to wound base and cover with Caliente SAP foam dressing every day. Follow-up in 1 week (2) Infected wound: CODE(S): T14.8XXA - Other injury of unspecified body region, initial encounter; L08.9 - Local infection of the skin and subcutaneous tissue, unspecified (3) Nonhealing nonsurgical wound: CODE(S): T14.8XXA - Other injury of unspecified body region, initial encounter 10/05/24 1215 Cosigner Signature (if applicable): CC: ~ Signed [facility]06-25-2025 Evaluation note* Diagnosis Onset Date Resolution Status Admit Date Infected wound acute October 05, 2024 8:23am Nonhealing nonsurgical wound acute October 05, 2024 8:23am Nonhealing ulcer of right lo wer leg acute October 05, 2024 8:23am [facility] Work Phone: 1([phone]) 365-736006-25-2025 Evaluation note* Diagnosis Onset Date Resolution Status Admit Date Infected wound acute October 05, 2024 8:23am Nonhealing nonsurgical wound acute October 05, 2024 8:23am Nonhealing ulcer of right lo wer leg acute October 05, 2024 8:23am Infected wound acute November 09, 2024 11:00am Nonhealing nonsurgical wound acute November 09, 2024 11:00am Nonhealing ulcer of right lo wer leg acute November 09, 2024 11:00am Ulcer of right lower extremi ty with necrosis of muscle acute October 11:00am [facility] Work Phone: [phone]) [phone] Evaluation note* Diagnosis Onset Date Resolution Status Admit Date Infected wound acute October 05, 2024 8:23am Nonhealing nonsurgical wound acute October 05, 2024 8:23am Nonhealing ulcer of right lo wer leg acute October 05, 2024 8:23am Infected wound acute November 09, 2024 11:00am Nonhealing nonsurgical wound acute November 09, 2024 11:00am Nonhealing ulcer of right lo wer leg acute November 09, 2024 11:00am Ulcer of right lower extremi ty with necrosis of muscle acute October 11:00am Infected wound acute November 1:00pm Nonhealing nonsurgical wound acute December 08, 2024 1:00pm Nonhealing ulcer of right lo wer leg acute December 08 1:00pm Ulcer of right lower extremi ty with fat layer exposed acute December 082024 1:00pm Ulcer of right lower extremi ty with necrosis of muscle acute November 122024 1:00pm [facility] Work Phone: 1(449) 525-563206-25-2025 Evaluation note* Diagnosis Onset Date Resolution Status Admit Date Infected wound acute October 05, 2024 8:23am Nonhealing nonsurgical wound acute October 05, 2024 8:23am Nonhealing ulcer of right lower leg acute October 05, 2024 8:23am Infected wound acute November 09, 2024 11:00am Nonhealing nonsurgical wound acute November 09, 2024 11:00am Nonhealing ulcer of right lower leg acute November 09, 2024 11:00am 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 acute November 09, 2024 11:00am Infected wound acute November 1:00pm Nonhealing nonsurgical wound acute December 08, 2024 1:00pm Nonhealing ulcer of right lower leg acute December 08 1:00pm Ulcer of right lower extremity with fat layer exposed acute December 08 1:00pm 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 acute December 08 1:00pm Bilateral lower extremity edema acute January 05, 2025 9:15am Ulcer of right lower extremity with fat layer exposed acute January 05, 2025 9:15am [facility] Work Phone: [phone]) [phone] Telephone encounter Note* Telephone Encounter - Ruddy Cheatham RN - 05/17/2024 4:42 PM EST S: Patient's SANDEEP Ariza called [facility] today, requesting antibiotics on the patient's behalf. B: Patient seen in office today by Dr. Elizabeth for shortness of breath on exertion. Encounter note states ECG was unremarkable, CXR ordered, plan for doxycycline and cyclobenzaprine pending results. Patient is present for call. Allergies and pharmacy verified. A: SANDEEP Ariza reports patient has shortness of breath on exertion, unchanged since office visit. Annita asking for antibiotics, or states she will take patient to ED. R: On-call provider paged, who states Dr. Elizabeth is still in office and will confer with him directly. Reason for Disposition [1] Caller requesting NON-URGENT health information AND [2] PCP's office is the best resource Answer Assessment - Initial Assessment Questions 1. REASON FOR CALL: What is the main reason for your call? or How can I best help you? Will patient receive antibiotics? 2. SYMPTOMS : Do you have any symptoms? Shortness of breath on exertion. 3. OTHER QUESTIONS: Do you have any other questions? No. Protocols used: Information Only Call - No [id number] [id number] Miscellaneous Notes* Telephone Encounter - Ruddy Cheatham RN - 05/17/2024 4:42 PM EST S: Patient's SANDEEP Ariza called [facility] today, requesting antibiotics on the patient's behalf. B: Patient seen in office today by Dr. Elizabeth for shortness of breath on exertion. Encounter note states ECG was unremarkable, CXR ordered, plan for doxycycline and cyclobenzaprine pending results. Patient is present for call. Allergies and pharmacy verified. A: SANDEEP Ariza reports patient has shortness of breath on exertion, unchanged since office visit. Annita asking for antibiotics, or states she will take patient to ED. R: On-call provider paged, who states Dr. Elizabeth is still in office and will confer with him directly. Reason for Disposition [1] Caller requesting NON-URGENT health information AND [2] PCP's office is the best resource Answer Assessment - Initial Assessment Questions 1. REASON FOR CALL: What is the main reason for your call? or How can I best help you? Will patient receive antibiotics? 2. SYMPTOMS : Do you have any symptoms? Shortness of breath on exertion. 3. OTHER QUESTIONS: Do you have any other questions? No. Protocols used: Information Only Call - No [id number] documented in this encounterSMansfield [id number] History of Present illness Narrative* Reji Maradiaga MD - 01/01/2024 9:20 AM EDT Images from the original note were not included. Reji Maradiaga MD OFFICE FOLLOW-UP VISIT PATIENT NAME: Stephane Toribio DATE OF : 1960 TODAY'S DATE: 01/01/2024 CHIEF COMPLAINT: Chief Complaint Patient presents with Benign Prostatic Hypertrophy 6 month follow up, Pt states they are well no urologic concerns - HX BPH with incomplete bladder emptying Subjective: Mr. Toribio is a 63 y.o. male who presents to the office for follow up of elevated PSA and LUTS. [place] for past history. Nocturia x 2. Variable stream. No hematuria or dysuria. Did well after the prior prostate biopsy Review of Systems Past Medical History: Past Medical History: Diagnosis Date H/O exercise stress test Hypertension MACY on CPAP Osteomyelitis (HCC) RIGHT RING FINGER AND SCHEDULED FOR THE SURGERY ON 03/05/[address] [facility] Past Surgical History: Past Surgical History: Procedure Laterality Date CHOLECYSTECTOMY [facility] COLONOSCOPY COLONOSCOPY FINGER AMPUTATION Right 03/05/2020 right small finger -dr jackson FINGER SURGERY Left [facility] FINGER SURGERY Left 02/20/2023 Mucous cyst excision long finger with with simple primary closure. arthrotomy DIP joint long fingerwith excision of osteophytes. Dr Jackson OTHER SURGICAL HISTORY EXCISION OF LIPOMA FROM THE BACK AT [facility] LONG TIME AGO SCAPHOID FRACTURE SURGERY Right [facility] WISDOM TOOTH EXTRACTION Allergies: Patient has no known allergies. Social History: Issues identified in the H&P were noted Family History: No family history on file. Medications Prior to Admission medications Medication Sig Start Date End Date Taking? Authorizing Provider acetaminophen (Tylenol) 325 MG tablet Take 650 mg by mouth. Yes Historical Provider, aspirin 81 MG EC tablet Take 81 mg by mouth in the morning. Yes Historical Provider, b complex vitamins capsule Take 1 capsule by mouth. Yes Historical Provider, Bacillus Coagulans-Inulin (Probiotic) 1-250 BILLION-MG capsule Take by mouth. Yes Historical Provider, cholecalciferol (Vitamin D-3) 50 MCG (1999 UT) capsule Take 5,000 Units by mouth. Yes Historical Provider, esomeprazole (NexIUM) [address] capsule Take 40 mg by mouth. Yes Historical Provider, fluticasone (Flonase) 50 MCG/ACT nasal spray 1 spray. Yes Historical Provider, lisinopril 20 MG tablet Take 20 mg by mouth. Yes Historical Provider, loratadine (Claritin) 10 MG tablet Take 10 mg by mouth daily. Yes Historical Provider, melatonin 5 MG tablet Take 5 mg by mouth. Yes Historical Provider, Misc Natural Products (Prostate Health) capsule Take by mouth. Yes Historical Provider, montelukast (Singulair) 10 MG tablet Take 10 mg by mouth Nightly. Yes Historical Provider, Multiple Vitamin (Multi-Vitamin) tablet Take 1 tablet by mouth in the morning. Yes Historical Provider, omega-3 (Fish Oil) 1200 MG capsule Take 1,200 mg by mouth. Yes Historical Provider, sildenafil (Viagra) 100 MG tablet take 1/2 to 1 tablet by mouth once daily if needed 04/17/22 Yes Historical Provider, triamcinolone (Kenalog) 0.1 % cream Apply 1 Application topically 2 times daily. 04/20/23 Yes Historical Provider, tamsulosin (Flomax) 0.4 MG 24 hr capsule Take 1 capsule (0.4 mg) by mouth 2 times daily. Take 30 minutes after a meal. 06/15/23 01/01/24 Yes Soraya Cazares APRN - COOKIE tamsulosin (Flomax) 0.4 MG 24 hr capsule Take 1 capsule (0.4 mg) by mouth 2 times daily. Take 30 minutes after a meal. 01/01/24 03/31/24 Reji Maradiaga MD Vitals: BP 138/70 Pulse 57 Ht 5' 10 (1.778 m) Wt (!) 330 lb (150 kg) BMI 47.35 kg/m Physical Exam Physical Exam Constitutional: Appearance: Normal appearance. HENT: Head: Normocephalic and atraumatic. Eyes: Extraocular Movements: Extraocular movements intact. Pulmonary: Effort: Pulmonary effort is normal. Abdominal: Hernia: There is no hernia in the left inguinal area or right inguinal area. Genitourinary: Penis: Normal and circumcised. Testes: Normal. Epididymis: Right: Normal. Left: Normal. Prostate: Enlarged (Prostate 1+, good lateral margins, no nodules). Not tender. Rectum: Normal. No mass. Musculoskeletal: Cervical back: Normal range of motion. Lymphadenopathy: Lower Body: No right inguinal adenopathy. No left inguinal adenopathy. Neurological: Mental Status: He is alert. LABS: 12/18/2023: PSA: 5.480 10/09/2023: PSA: 8.670 ([place]) 04/20/2023: PSA: 7.200 w/ 31% free PSA ([place]) 11/28/2022: PSA: 7.440 10/31/2022: PSA: 6.670 05/02/2022: PSA: 4.588 10/24/2021: PSA: 4.256 09/20/2019: PSA: 3.523 Lab Results Component Value Date PSA 4.588 (H) 05/02/2022 PSA 4.256 (A) 10/24/2021 PSA 3.523 09/20/2019 Lab Results Component Value Date TESTOSTERONE 391 05/13/2022 Lab Results Component Value Date WBC 5.7 04/17/2023 HGB 13.1 04/17/2023 HCT 39.9 (L) 04/17/2023 MCV 86.2 04/17/2023 PLT 216 04/17/2023 Lab Results Component Value Date GLUCOSE 99 04/17/2023 CALCIUM 9.4 04/17/2023 NA 139 04/17/2023 K 4.5 04/17/2023 CO2 24 04/17/2023 CL 108 (H) 04/17/2023 BUN 23 (H) 04/17/2023 CREATININE 1.35 (H) 04/17/2023 Radiology: PVR 13 ml. Impression/Plan Stephane was seen today for benign prostatic hypertrophy. Diagnoses and all orders for this visit: Elevated PSA (Primary) Incomplete bladder emptying - Bladder scan Nocturia Weak urinary stream Follow up in about 1 year (around 12/31/2024) for Next scheduled follow-up. Nocturia x 1-2, variable stream. Refilled tamsulosin BID (emptying bladder better) The patient's medical conditions have been discussed with them. The medication that has previously been prescribed appears to be effective in managing the patient's symptoms. The patient is tolerating the medication without adverse effects. Plan is to continue the current treatment plan PSA is decreasing. Reji Maradiaga MD 01/02/24 10:34 PM Lives in [facility] ([facility] Brother: Dr. Froylan Toribio Nephew: Dr. Aden Toribio (ortho) 06/15/2023: OV RAMON: PVR 124 ml. Increase tamsulosin to BID 12/19/2022: TRUS/Bx ([place], 177 ml): benign documented in this [facility]03-04-2024 History of Present illness Narrative* RUBIN Dudley CNP - 06/15/2023 3:00 PM EST Images from the original note were not included. RUBIN Beltran CNP 06/15/2023 at 3:40 PM Urology Office Visit PATIENT NAME: Stephane Toribio DATE OF : 1960 TODAY'S DATE: 06/15/2023 CHIEF COMPLAINT: Chief Complaint Patient presents with 1 year follow up PSA/BPH Patient denies any new or different pain anywhere, denies dysuria, gross hematuria, nocturia x1, denies fully emptying bladder with urination, states urine stream is weak Subjective: Mr. Toribio is a 62 y.o. male who presents to the office regarding follow up. HPI Patient was last seen in office on 12/19/2022 for prostate biopsy His prostate biopsy showed NO cancer. His elevated PSA is likely related to his large prostate gland. He reports that his fathers prostate was very large. Symptoms have been chronic, stable Voids q 2 hrs. Nocturia x 0-1. Urgency: Occasionally. UUI: Occasionally. LIZ: Denies. Dysuria: Denies. Hematuria: Denies. Stream is weak. He feels that he does not completely empty bladder when voiding. He does have some double void Prostate volume was noted to be 177 ml He has tried Finasteride 5 mg daily in the past. Psa from - 7.2 11/28/2022- 7.44 10/31/2022- 6.67 Review of Systems Constitutional: Negative for chills and fever. Genitourinary: Positive for frequency and urgency. Negative for difficulty urinating, flank pain and hematuria. Past Medical History: Past Medical History: Diagnosis Date H/O exercise stress test Hypertension MACY on CPAP Osteomyelitis (HCC) RIGHT RING FINGER AND SCHEDULED FOR THE SURGERY ON 03/05/20 AT [facility] Past Surgical History: Past Surgical History: Procedure Laterality Date CHOLECYSTECTOMY [facility] COLONOSCOPY COLONOSCOPY FINGER AMPUTATION Right 03/05/2020 right small finger -dr jackson FINGER SURGERY Left [facility] FINGER SURGERY Left 02/20/2023 Mucous cyst excision long finger with with simple primary closure. arthrotomy DIP joint long fingerwith excision of osteophytes. Dr Jackson OTHER SURGICAL HISTORY EXCISION OF LIPOMA FROM THE BACK AT [facility] LONG TIME AGO SCAPHOID FRACTURE SURGERY Right [facility] WISDOM TOOTH EXTRACTION Medications Prior to Admission medications Medication Sig Start Date End Date Taking? Authorizing Provider acetaminophen (Tylenol) 325 MG tablet Take 650 mg by mouth. Historical Provider, aspirin 81 MG EC tablet Take 81 mg by mouth in the morning. Historical Provider, b complex vitamins capsule Take 1 capsule by mouth. Historical Provider, Bacillus Coagulans-Inulin (Probiotic) 1-250 BILLION-MG capsule Take by mouth. Historical Provider, benzonatate (Tessalon) 200 MG capsule Take 200 mg by mouth 3 times daily as needed. 06/05/21 Historical Provider, cholecalciferol (Vitamin D-3) 50 MCG (2000 UT) capsule Take 5,000 Units by mouth. Historical Provider, esomeprazole (NexIUM) [address] capsule Take 40 mg by mouth. Historical Provider, fluticasone (Flonase) 50 MCG/ACT nasal spray 1 spray. Historical Provider, lisinopril 20 MG tablet Take 20 mg by mouth. Historical Provider, loratadine (Claritin) 10 MG tablet Take 10 mg by mouth daily. Historical Provider, melatonin 5 MG tablet Take 5 mg by mouth. Historical Provider, Misc Natural Products (Prostate Health) capsule Take by mouth. Historical Provider, montelukast (Singulair) 10 MG tablet Take 10 mg by mouth Nightly. Historical Provider, Multiple Vitamin (Multi-Vitamin) tablet Take 1 tablet by mouth in the morning. Historical Provider, omega-3 (Fish Oil) 1200 MG capsule Take 1,200 mg by mouth. Historical Provider, sildenafil (Viagra) 100 MG tablet take 1/2 to 1 tablet by mouth once daily if needed 04/17/22 Historical Provider, tamsulosin (Flomax) 0.4 MG 24 hr capsule Take 0.4 mg by mouth Nightly. Historical Provider, Vitals: BP 133/74 Pulse 64 Ht 5' 10 (1.778 m) Wt (!) 330 lb (150 kg) BMI 47.35 kg/m Physical Exam Constitutional: General: He is not in acute distress. Appearance: Normal appearance. He is not ill-appearing. Neurological: Mental Status: He is alert and oriented to person, place, and time. Labs: Lab Results Component Value Date CREATININE 1.35 (H) 04/17/2023 Hemoglobin Date Value Ref Range Status 04/17/2023 13.1 13.0 - 18.0 g/dL Final 03/01/2020 13.6 13.0 - 18.0 g/dL Final 09/20/2019 13.9 13.0 - 18.0 g/dL Final HEMATOCRIT Date Value Ref Range Status 05/13/2022 38.8 38.5 - 50.0 % Final Hematocrit Date Value Ref Range Status 04/17/2023 39.9 (L) 40.0 - 52.0 % Final PSA Total Date Value Ref Range Status 10/24/2021 4.256 (A) <4.000 ng/mL Final Comment: Testing performed on the Glycosans 5600 using an immunometric methodology. Results obtained by different methods should not be used interchangeably. PROSTATE SPECIFIC AG SCREEN Date Value Ref Range Status 05/02/2022 4.588 (H) <4.000 ng/mL Final [facility] PROSTATE SPECIFIC ANTIGEN Date Value Ref Range Status 09/20/2019 3.523 <4.000 ng/mL Final Comment: Testing performed on the [employer]cos[employer] 5600 using an immunometric methodology. Results obtained by different methods should not be used interchangeably. TESTOSTERONE, TOTAL, MALES (ADULT), IA Date Value Ref Range Status 05/13/2022 391 250 - 827 ng/dL Final Radiology Review: N/A Procedure: PVR - 124 ml Impression/Plan Diagnoses and all orders for this visit: Incomplete bladder emptying - tamsulosin (Flomax) 0.4 MG 24 hr capsule; Take 1 capsule (0.4 mg) by mouth 2 times daily. Take 30minutes after a meal. Benign prostatic hyperplasia with nocturia - Measure post void residual - tamsulosin (Flomax) 0.4 MG 24 hr capsule; Take 1 capsule (0.4 mg) by mouth 2 times daily. Take 30minutes after a meal. - PSA Screening; Future Elevated PSA - PSA Screening; Future - Here for follow up - PVR - 124 ml - Repeat PSA 7.2 - Discussed cystoscopy/TRUS. Patient would like to try and hold off on possible surgical intervention at this time. - Tamsulosin increased to 0.4 mg BID due to incomplete bladder emptying. Discussed potential side effects with patient - Order placed for repeat PSA in 6 months - The patient was instructed to call the office or go to the nearest ER if worsening symptoms such as fever > 101F, inability to urinate, intractable nausea or vomiting, or uncontrolled pain. The patient verbalizes understanding. - Follow up in 6 months with PSA prior Follow Up: Follow up in about 6 months (around 12/16/2023) for BPH and elevated PSA, PSA prior. --Soraya Cazares CNP, APRN on 06/15/2023 at 3:40 PM An electronic signature was used to authenticate this note. * Stephanie Griffith RN - 06/15/2023 3:00 PM EST PVR 124ml documented in this [facility]11-21-2023 History of Present illness Narrative* Sharon Linton PA-C - 03/03/2023 2:30 PM EST Images from the original note were not included. Subjective: Stephane is approximately 11 day(s) s/p Mucous cyst excision left long finger with with simple primary closure and Arthrotomy DIP joint long finger with excision of osteophytes Pain is minimal. He is taking Tylenol BID for pain relief. He reports improvement in pain post operatively. The patient denies numbness and tingling in the hand/fingers. The patient denies fevers and chills. Patient presents the office today for wound check and suture removal. He is happy overall with the results of his surgery and he has minimal pain at this time. He denies new numbness and tingling in the affected finger. He has been compliant with his postoperative instructions and splint use. Objective: BP (!) 146/68 Ht 1.778 m (5' 10) Wt (!) 142 kg (312 lb) BMI 44.77 kg/m Ortho Exam Left Upper Extremity Focused Exam of the LEFT Upper Extremity Skin: healing incision without evidence of infection, nylon sutures intact, minimal surrounding erythema, no active or expressible drainage, no warmth, no fluctuance or induration, see clinical photobelow Clinical Picture: Edema: mild edema surrounding the incision and DIP joint as expected, no fusiform swelling of the fingers Palpation: non tender to palpation throughout the DIP joint and incision ROM: LEFT long finger MCP (nl 0-45 H/90 ) PIP (nl 0 /100 ) DIP (nl 0 -80 ) Tip to Palm EXTENSION 0 0 -5 FLEXION 90 90 30 able to contact *(Passive values entered only if different than active; otherwise = AROM) Remaining fingers flex to palm. Active wrist range of motion: full flexion/ full extension. Pronation full/ Supination full. Motor: Intact in the hand - able to fire AIN, PIN, and Ulnar nerves Sensation: to light touch is normal in the median, ulnar, and radial nerve distributions Perfusion: Brisk capillary refill in all 5 digits XRay: None Assessment 1. Digital mucous cyst of finger of left hand 2. 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 I would like Stephane to begin hand and finger ROM exercises today. The patient was encouraged to work on wrist and hand range of motion exercises. The patient was provided with detailed instructions for home therapy exercises. The patient is to begin weight bearing as tolerated. Expected post operative recovery course was discussed with the patient including risk of recurrence. his questions were answered and is comfortable with the plan. We discussed his arthritis at several of his DIP joints and he understands that if his pain persists and his range of motion decreases that we may consider arthrodesis of the DIP joint if needed. Immobilization: NO immobilization required at this point - FULL ROM encouraged Weight Bearing: Weight Bearing As Tolerated Rehabilitation: Home Exercises: Instructions reviewed today in office. I plan to see Stephane back in on an as needed basis to see how he is doing. Stephane knows to call theoffice with any questions or concerns in the interim. Future Imaging: None Sutures were removed in office today. No dressing applied to left long finger. Patient tolerated well with no concerns. Applied by: OTONIEL Linton PA-C to Dr. Toth [facility] Hand and Upper Extremity Plastic and Reconstructive Surgery (Please note that portions of this note may have been completed with a voice recognition program. Efforts were made to edit the dictations but occasionally words are mis-transcribed.) documented in this [facility]11-21-2023 Instructions* Patient Instructions* Stephane Mcgrath, NIA - 03/03/2023 2:30 PM EST Images from the original note were not included. Finger: Rehab Exercises Your Care Instructions Here are some examples of typical rehabilitation exercises for your condition. Start each exercise slowly. Ease off the exercise if you start to have pain. Your doctor or your physical or occupational therapist will tell you when you can start these exercises and which ones will work best for you. How to do the exercises Finger extension Place your hand flat on a table, palm down. Lift and then lower your affected finger off the table. Repeat 8 to 12 times[address] your good hand on a table, palm up. Put your hand with the affected finger on top of your good hand with your fingers wrapped around the thumb of your good hand like you are making a fist. Slowly uncurl the joints of your hand with the affected finger where your fingers connect to your hand so that only the top two joints of your fingers are bent. Your fingers will look like a hook. Move back to your starting position, with your fingers wrapped around your good thumb. Repeat 8 to 12 times. DIP flexion With your good hand, grasp your affected finger. Your thumb will be on the top side of your finger just below the joint that is closest to your fingernail. Slowly bend your affected finger only at the joint closest to your fingernail. Hold for about 6 seconds. Repeat 8 to 12 times. PIP extension (with MP extension) Place your good hand on a table, palm up. Put your hand with the affected finger on top of your good hand. Use the thumb and fingers of your good hand to grasp below the middle joint of your affected finger. Bend and then straighten the last two joints of your affected finger. Repeat 8 to 12 times. Isolated PIP flexion Place the hand with the affected finger flat on a table, palm up. With your other hand, press down on the fingers that are not affected. Your affected finger will be free to move. Slowly bend your affected finger. Hold for about 6 seconds. Then straighten your finger. Repeat 8 to 12 times. Imaginary ball squeeze Pretend to hold an imaginary ball. Slowly bend your fingers around the imaginary ball, and squeeze the ball for about 6 seconds. Then slowly straighten your fingers to release the ball. Repeat 8 to 12 times. Tendon glides In this exercise, the steps follow one another to a make a continuous movement. Hold your hand upward. Your fingers and thumb will be pointing straight up. Your wrist should be relaxed, following the line of your fingers and thumb. Curl your fingers so that the top two joints in them are bent, and your fingers wrap down. Your fingertips should touch or be near the base of your fingers. Your fingers will look like a hook. Make a fist by bending your knuckles. Your thumb can gently rest against your index (pointing) finger. Unwind your fingers slightly so that your fingertips can touch the base of your palm. Your thumb can rest against your index finger. Move back to your starting position, with your fingers and thumb pointing up. Repeat the series of motions 8 to [address] a small towel roll on a table. With your palm facing down, grab the towel and squeeze it for about 6 seconds. Then slowly straighten your fingers to release the towel. Repeat 8 to 12 times. Towel grab Fold a small towel in half, and lay it flat on a table. Put your hand flat on the towel, palm down. Grab the towel, and scrunch it toward you until your hand is in a fist. Slowly straighten your fingers to push the towel back so it is flat on the table again. Repeat 8 to 12 times. documented in this [facility]10-10-2023 Telephone encounter Note* Telephone Encounter - Sharon Linton PA-C - 01/20/2023 8:06 AM EDT PAT [facility] Phone: [phone]) 699-591210-10-2023 Miscellaneous Notes* Telephone Encounter - Sharon Linton PA-C - 01/20/2023 8:06 AM EDT PAT orders signed * Telephone Encounter - Shanel Bravo - 01/19/2023 8:57 AM EDT Checked online portal and authorization was approved. Auth# [id number] Valid: 01/13/2023-02/20/2023 * Telephone Encounter - Shanel Bravo - 01/12/2023 9:23 AM EDT Submitted for authorization and it is pending. Uploaded into media. Pending# [id number] * Telephone Encounter - Shanel Bravo - 01/12/2023 8:37 AM EDT Sx sent to scheduling. * Telephone Encounter - Shanel Bravo - 01/09/2023 9:51 AM EDT Patient given all sx information in office. * Telephone Encounter - Shanel Bravo - 01/09/2023 9:40 AM EDT ----- Message from Milind De Leon ATC sent at 01/09/2023 9:34 AM EDT ----- [facility] SCHEDULING SLIP Patient: Stephane Toribio Date of : 1960 Date of Surgery: 02/20/23@ 12:00pm Day of Surgery: Thursday Hospital: [facility] Duration: 45min Type: Outpatient PAT: No Med Clearance: No Anesthesia: Local Only Block: None Position: Supine Table: Stretcher Arm Board: Roll-up arm table Radiology: None CPT Code: 33373 DX: M67.442 Case# [id number] Consent: LEFT Middle finger digital mucous cyst with possible local tissue advancement FollowUp: Shaila in 10-14 days Special Requests Hand Tray [place] Finger tornicot documented in this [facility]10-09-2023 Telephone encounter Note* Telephone Encounter - Shanel Bravo - 01/19/2023 8:57 AM EDT Checked online portal and authorization was approved. Auth# [id number] Valid: 01/13/2023-02/20/2023 [id number] Miscellaneous Notes* Telephone Encounter - Shanel Bravo - 01/19/2023 8:57 AM EDT Checked online portal and authorization was approved. Auth# [id number] Valid: 01/13/2023-02/20/2023 * Telephone Encounter - Shanel Bravo - 01/12/2023 9:23 AM EDT Submitted for authorization and it is pending. Uploaded into media. Pending# [id number] * Telephone Encounter - Shanel Bravo - 01/12/2023 8:37 AM EDT Sx sent to scheduling. * Telephone Encounter - Shanel Bravo - 01/09/2023 9:51 AM EDT Patient given all sx information in office. * Telephone Encounter - Shanel Bravo - 01/09/2023 9:40 AM EDT ----- Message from Milind De Leon ATC sent at 01/09/2023 9:34 AM EDT ----- [facility] SCHEDULING SLIP Patient: Stephane Toribio Date of : 1960 Date of Surgery: 02/20/23@ 12:00pm Day of Surgery: Thursday Hospital: [place] Duration: 45min Type: Outpatient PAT: No Med Clearance: No Anesthesia: Local Only Block: None Position: Supine Table: Stretcher Arm Board: Roll-up arm table Radiology: None CPT Code: 33916 DX: M67.442 Case# [id number] Consent: LEFT Middle finger digital mucous cyst with possible local tissue advancement FollowUp: Jose Ao in 10-14 days Special Requests Hand Tray [place] Finger tornicot documented in this encounterSMansfield [id number] Telephone encounter Note* Telephone Encounter - Shanel Bravo - 01/12/2023 9:23 AM EDT Submitted for authorization and it is pending. Uploaded into media. Pending# [id number] [id number] Telephone encounter Note* Telephone Encounter - Shanel Bravo - 01/12/2023 8:37 AM EDT Sx sent to scheduling. [id number] Telephone encounter Note* Telephone Encounter - Shanel Bravo - 01/09/2023 9:51 AM EDT Patient given all sx information in office. [id number] Telephone encounter Note* Telephone Encounter - Shanel Bravo - 01/09/2023 9:40 AM EDT ----- Message from Milind De Leon ATC sent at 01/09/2023 9:34 AM EDT ----- [facility] SCHEDULING SLIP Patient: Stephane Toribio Date of : 1960 Date of Surgery: 02/20/23@ 12:00pm Day of Surgery: Thursday Hospital: [place] Duration: 45min Type: Outpatient PAT: No Med Clearance: No Anesthesia: Local Only Block: None Position: Supine Table: Stretcher Arm Board: Roll-up arm table Radiology: None CPT Code: 97818 DX: M67.442 Case# [id number] Consent: LEFT Middle finger digital mucous cyst with possible local tissue advancement FollowUp: Biro in 10-14 days Special Requests Hand Tray [place] Finger tornicot [facility] [id number] History of Present illness Narrative* Navneet Jackson MD - 01/09/2023 9:15 AM EDT Images from the original note were not included. [facility] [address] [facility] [address] Dept: [phone] Dept 01/09/2023 Chief Complaint Patient presents with New Patient Bilateral cyst in middle fingers HPI Stephane Toribio is a 62 y.o. right handed male that presents for evaluation of mass in his BILATERAL middle fingers with both sides being equal in pain. Symptoms have been present for 7 month(s). Thesymptoms started after no specific injury. He notices small masses at the DIP joints of the middle fingers with a nail deformity on both fingers. Pain Characteristics Described as aching and sharp Worse with none Alleviated nothing Severity 1 on scale of 1-10 at currently; can increased to 8-9 out a 10 at times. Previous Treatments NSAIDs: No - Have not tried Injection: No - Has never received an injection Therapy: No - Has not attempted formal therapy Splinting: No - Has not tried any splinting Surgery: Yes - Has had previous surgery to include: right small finger amputation in 2019 MRI: No Has not had an MRI No results found for: HGBA1C Past Surgical History: Procedure Laterality Date CHOLECYSTECTOMY [facility] COLONOSCOPY COLONOSCOPY FINGER AMPUTATION Right 03/05/2020 right small finger - [facility] FINGER SURGERY Left [facility] OTHER SURGICAL HISTORY EXCISION OF LIPOMA FROM THE BACK AT [facility] LONG TIME AGO SCAPHOID FRACTURE SURGERY Right [facility] WISDOM TOOTH EXTRACTION Past Medical History: Diagnosis Date H/O exercise stress test Hypertension MACY on CPAP Osteomyelitis (HCC) RIGHT RING FINGER AND SCHEDULED FOR THE SURGERY ON 03/05/[address] [facility] No Known Allergies Current Outpatient Medications Medication Sig Dispense Refill acetaminophen (Tylenol) 325 MG tablet Take 650 mg by mouth. aspirin 81 MG EC tablet Take 81 mg by mouth in the morning. b complex vitamins capsule Take 1 capsule by mouth. Bacillus Coagulans-Inulin (Probiotic) 1-250 BILLION-MG capsule Take by mouth. benzonatate (Tessalon) 200 MG capsule Take 200 mg by mouth 3 times daily as needed. cholecalciferol (Vitamin D-3) 50 MCG (2000 UT) capsule Take 5,000 Units by mouth. esomeprazole (NexIUM) [address] capsule Take 40 mg by mouth. fluticasone (Flonase) 50 MCG/ACT nasal spray 1 spray. lisinopril 20 MG tablet Take 20 mg by mouth. loratadine (Claritin) 10 MG tablet Take 10 mg by mouth daily. melatonin 5 MG tablet Take 5 mg by mouth. Misc Natural Products (Prostate Health) capsule Take by mouth. montelukast (Singulair) 10 MG tablet Take 10 mg by mouth Nightly. Multiple Vitamin (Multi-Vitamin) tablet Take 1 tablet by mouth in the morning. omega-3 (Fish Oil) 1200 MG capsule Take 1,200 mg by mouth. sildenafil (Viagra) 100 MG tablet take 1/2 to 1 tablet by mouth once daily if needed tamsulosin (Flomax) 0.4 MG 24 hr capsule Take 0.4 mg by mouth Nightly. diazePAM (Valium) 10 MG tablet Take 1 tablet (10 mg) by mouth Once for 1 dose. Take 1 tablet 30 minutes prior to procedure. 1 tablet 0 levoFLOXacin (Levaquin) 750 MG tablet take 1 tablet by mouth once daily for 1 dose 2 hours prior toprocedure No current facility-administered medications for this visit. OBJECTIVE BP 134/74 Ht 5' 10 (1.778 m) Wt 296 lb (134 kg) BMI 42.47 kg/m Ortho Exam LEFT Upper Extremity Mass Characteristics Size: 5 mm X 4 mm Location: middle finger, DIP joint Depth: deep Mobility: fixed Tenderness: tender Transillumination: Difficult to tell due to size and location Digital Michael's Test (perfusion): Not performed. Brisk capillary refill in all 5 digits Nail Plate changes: Yes Clinical Photo (if obtained at office visit): Yes Skin: Intact without any evidence of breakdown Edema: Surrounding the mass ROM: full ROM throughout Motor: intact in the hand - able to fire AIN, PIN, and Ulnar nerves Sensation: to light touch normal in the median, ulnar, and radial nerve distributions Perfusion: Brisk cap refill to all digits RIGHT Upper Extremity Mass Characteristics Size: Non visualized mucous cyst obvious prominence + Location: middle finger Depth: deep Mobility: fixed Tenderness: nontender Transillumination: Difficult to tell due to size and location Digital Michael's Test (perfusion): Not performed. Brisk capillary refill in all 5 digits Nail Plate changes: No Clinical Photo (if obtained at office visit): Yes Skin: Intact without any evidence of breakdown Edema: Surrounding the mass ROM: full ROM throughout Motor: intact in the hand - able to fire AIN, PIN, and Ulnar nerves Sensation: to light touch normal in the median, ulnar, and radial nerve distributions Perfusion: Brisk cap refill to all digits IMAGING Plain films were taken today and reviewed in office. 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 Stephane had some excellent questions, all of which were answered to his satisfaction. Stephane elected to proceed with patient wishes to have surgery to remove the digital mucous cyst on the left middle finger. Discussed expected recovery as well as nail plate recovery and the risk for recurrence due to significant osteoarthritis at the DIP joint. Currently the joints are nontender aslong as these are nontender we will defer any arthrodesis or surgical management of the IP joints. He knows he has a significant risk of recurrence of the these mucous cyst. I had an extensive discussion with Mr. Stephane Toribio and any family members present regarding thenatural history, etiology, and jail consequences of his condition. I have outlined a treatmentplan with them and, in my opinion, surgical intervention is indicated at this time. I have discussed with Mr. Stephane Toribio the potential complications, limitations, expectations, alternatives, andrisks of the surgical procedure which include but are not limited to the risks of injury to normal structures, persistent pain and disability, unsightly scar, postoperative stiffness, need for revision surgery, infection, myocardial infarction, deep vein thrombosis, pulmonary embolism, and even . He has had full opportunity to ask his questions. I have answered them all to his satisfaction. I feel that Mr. Stephane Toribio and any present family members do understand our discussion today and he is comfortable providing informed consent for the procedure. ' The above diagnosis has been present for less than 1 year I did thoroughly review previous notes from other providers including myself, previous imaging, as well as pertinent testing including X-rays Today's treatment plan includes Surgical Intervention Follow-up: Stephane will followup with my physician outreach assistant, Sharon Linton PA-C post operatively. He knows to call the office with any questions or concerns in the interim. Future Imaging: NONE Navneet Jackson MD Hand, Plastic, and Reconstructive Surgery [facility] Department of Orthopedics and Sports Medicine 01/09/2023 at 9:24 AM (Please note that portions of this note may have been completed with a voice recognition program. Efforts were made to edit the dictations but occasionally words are mis-transcribed.) documented in this [facility]09-29-2023 Instructions* Patient Instructions* Milind De Leon ATC - 01/09/2023 9:15 AM EDT Shanel Uriostegui Search Engine Optimization Analyst for Dr. Navneet Jackson F: [phone] [facility]09-12-2023 History of Present illness Narrative* Flor Barfield DO - 12/23/2022 8:44 AM EDT PSA ordered, to be collected before April 2023 urology visit documented in this [facility]09-08-2023 History of Present illness Narrative* Flor Barfield DO - 12/19/2022 8:20 AM EDT UROLOGY PROCEDURE REPORT TRUS with Prostate Biopsy PATIENT NAME: Stephane Toribio DATE OF : 1960 TODAY'S DATE: 12/19/2022 PreOp Dx: Elevated PSA. Pre biopsy PSA 7.44 PostOp Dx: Same Operation Transrectal Ultrasound of the prostate, 12 core prostate biopsy Surgeon Flor Barfield DO Anesthesia: 10cc 1% Lidocaine without epinephrine, 10mg PO Valium EBL Minimal Specimen 12 core prostate biopsy PROSTATE BIOPSY SITES: RIGHT LATERAL BASE RIGHT BASE RIGHT LATERAL MID RIGHT MID RIGHT LATERAL APEX RIGHT APEX LEFT LATERAL BASE LEFT BASE LEFT LATERAL MID LEFT MID LEFT LATERAL APEX LEFT APEX Complications None; patient tolerated the procedure well. Condition To Home INDICATIONS: Stephane Toribio , is a 62 y.o. male who has history of elevated PSA. Prior PSA value 7.44 Previous Prostate biopsy? no Prostate Ultrasound With Needle Biopsy Prostate Patient was instructed to stop all aspirin products 10 days prior to the procedure. I explained theoptions concerning the findings of a prostatic nodule both with and without an elevated PSA, as well as an elevated PSA without a prostate nodule. I specifically explained to him the procedure, the reason for doing this, the possible complications, and the fact that a negative prostate biopsy does not definitely indicate that there is no prostate cancer present, but only that there was no malignancy found in the biopsy specimens. I explained the possibility of impotency and some incontinence, blood in the urine, stool, and/or semen. He may also experience frequency, urgency, and dysuria afterthe procedure. I explained the remote possibility of blood loss and the possibility of infection ofthe prostate and rectum post operatively. I explained that the procedure would be done through the rectum and that there was a small chance of a rectal fistula leading to a colostomy and possible further surgery. The patient expressed an understanding with regard to possible benefits, risks, complications and outcome. PROCEDURE: Stephane Toribio Was brought to the exam room. Thorough time out was performed and everyone present was in agreement.Stephane Toribio was placed left lateral decubitus position. Patient received 500mg PO Cipro and 160mg IM Gentamicin prior to procedure. Rectal exam was performed and reveals high riding prostate The prostate probe was placed and the prostate was imaged in the transverse and longitudinal planes. Prostate volume estimated at 155.81 cc Then with guidance lidocaine was injected right and [facility] was performed using ultrasound guidance. FINDINGS Enlarged prostate Width 6.74 Height 6.257 Length 7.064 Volume 155.81 ml PSA density 0.05 No hypoechoic lesions The patient tolerated procedure well Impression/Plan Re-discussed expectations post prostate biopsy. Patient also reinstructed that [facility] develops shaking chills or a temperature of 100.4 or greater. Follow up based on Bx results If Positive, follow-up with Dr. Moseley or Claudia for robotic prostatectomy conference and discussion of prostate cancer. If negative follow-up in 6 months with PSA prior Follow up for will call with results . Flor Barfield DO 12/19/22 8:42 AM * Columba Alejandra RN - 12/19/2022 8:20 AM EDT Pt presents for TRUS Bx. Pt did take complete Fleets Enema Pt states he took his Valium, Levaquin, Ibuprofen and Tylenol. Pt given 160mg Gentamycin IM: see MAR. documented in this [facility]09-08-2023 Miscellaneous Notes* Addendum Note - Columba Alejandra RN - 12/19/2022 8:20 AM EDTAddended by: COLUMBA ALEJANDRA on: 12/19/2022 09:15 AM Modules accepted: Orders * Addendum Note - Nidhi Cary RN - 12/19/2022 8:20 AM EDTAddended by: ASHLEY LEUNG on: 12/19/2022 09:21 AM Modules accepted: Orders * Addendum Note - Nidhi Cary RN - 12/19/2022 8:20 AM EDTAddended by: ASHLEY LEUNG on: 12/19/2022 09:25 AM Modules accepted: Orders * Addendum Note - Columba Alejandra RN - 12/19/2022 8:20 AM EDTAddended by: COLUMBA ALEJANDRA on: 12/19/2022 11:03 AM Modules accepted: Orders documented in this [facility]09-08-2023 Note* Addendum Note - Columba Alejandra RN - 12/19/2022 8:20 AM EDTAddended by: COLUMBA ALEJANDRA on: 12/19/2022 09:15 AM Modules accepted: Orders [id number] [facility]* Addendum Note - Nidhi Cary RN - 12/19/2022 8:20 AM EDTAddended by: ASHLEY LEUNG on: 12/19/2022 09:21 AM Modules accepted: Orders [id number] Note* Addendum Note - Nidhi Cary RN - 12/19/2022 8:20 AM EDTAddended by: ASHLEY LEUNG on: 12/19/2022 09:25 AM Modules accepted: Orders [facility] [id number] Note* Addendum Note - Columba Alejandra RN - 12/19/2022 8:20 AM EDTAddended by: COLUMBA ALEJANDRA on: 12/19/2022 11:03 AM Modules accepted: Orders [id number] Note* Addendum Note - Columba Alejandra RN - 12/19/2022 8:20 AM EDTAddended by: COLUMBA ALEJANDRA on: 12/19/2022 09:15 AM Modules accepted: Orders [facility] [id number] Note* Addendum Note - Nidhi Cary RN - 12/19/2022 8:20 AM EDTAddended by: ASHLEY LEUNG on: 12/19/2022 09:21 AM Modules accepted: Orders [facility] HospitalKjzxqy07-07-8636 Note* Addendum Note - Nidhi Cary RN - 12/19/2022 8:20 AM EDTAddended by: ASHLEY LEUNG on: 12/19/2022 09:25 AM Modules accepted: Orders [facility] [id number] Note* Addendum Note - Columba Alejandra RN - 12/19/2022 8:20 AM EDTAddended by: COLUMBA ALEJANDRA on: 12/19/2022 11:03 AM Modules accepted: Orders [facility] [id number] Note* Addendum Note - Columba Alejandra RN - 12/19/2022 8:20 AM EDTAddended by: COLUMBA ALEJANDRA on: 12/19/2022 09:15 AM Modules accepted: Orders [facility] [id number] Note* Addendum Note - Nidhi Cary RN - 12/19/2022 8:20 AM EDTAddended by: ASHLEY LEUNG on: 12/19/2022 09:21 AM Modules accepted: Orders [facility] [id number] Note* Addendum Note - Nidhi Cary RN - 12/19/2022 8:20 AM EDTAddended by: ASHLEY LEUNG on: 12/19/2022 09:25 AM Modules accepted: Orders [facility] [id number] Note* Addendum Note - Columba Alejandra RN - 12/19/2022 8:20 AM EDTAddended by: COLUMBA ALEJANDRA on: 12/19/2022 11:03 AM Modules accepted: Orders [facility] [id number] Note* Addendum Note - Columba Alejandra RN - 12/19/2022 8:20 AM EDTAddended by: COLUMBA ALEJANDRA on: 12/19/2022 09:15 AM Modules accepted: Orders [facility] [id number] Note* Addendum Note - Nidhi Cary RN - 12/19/2022 8:20 AM EDTAddended by: ASHLEY LEUNG on: 12/19/2022 09:21 AM Modules accepted: Orders [facility] [id number] Note* Addendum Note - Nidhi Cary RN - 12/19/2022 8:20 AM EDTAddended by: ASHLEY LEUNG on: 12/19/2022 09:25 AM Modules accepted: Orders [facility] [id number] Note* Addendum Note - Columba Alejandra RN - 12/19/2022 8:20 AM EDTAddended by: COLUMBA ALEJANDRA on: 12/19/2022 11:03 AM Modules accepted: Orders [facility] [id number] Note* Addendum Note - Columba Alejandra RN - 12/19/2022 8:20 AM EDTAddended by: COLUMBA ALEJANDRA on: 12/19/2022 09:15 AM Modules accepted: Orders [facility] [id number] Note* Addendum Note - Nidhi Cary RN - 12/19/2022 8:20 AM EDTAddended by: ASHLEY LEUNG on: 12/19/2022 09:21 AM Modules accepted: Orders [facility] HospitalPdhiat49-01-1139 Note* Addendum Note - Nidhi Cary RN - 12/19/2022 8:20 AM EDTAddended by: ASHLEY LEUNG on: 12/19/2022 09:25 AM Modules accepted: Orders [facility] [id number] Note* Addendum Note - Columba Alejandra RN - 12/19/2022 8:20 AM EDTAddended by: COLUMBA ALEJANDRA on: 12/19/2022 11:03 AM Modules accepted: Orders [facility] [id number] Note* Addendum Note - RUBIN Piedra CNP - 12/08/2022 8:54 AM EDTAddended by: STEPH HENSON on: 12/08/2022 08:54 AM Modules accepted: Orders [facility] [id number] Note* Addendum Note - RUBIN Piedra CNP - 12/08/2022 8:54 AM EDTAddended by: STEPH HENSON on: 12/08/2022 08:54 AM Modules accepted: Orders [facility] [id number] Miscellaneous Notes* Addendum Note - RUBIN Piedra CNP - 12/08/2022 8:54 AM EDTAddended by: STEPH HENSON on: 12/08/2022 08:54 AM Modules accepted: Orders * Telephone Encounter - RUBIN Piedra CNP - 12/08/2022 8:50 AM EDT Medication orders placed. [facility] to [facility]. Pt to take valium 30 minutes prior. 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 * Telephone Encounter - Mita Maria - 12/08/2022 8:28 AM EDT Spoke to pt, advised of Dean's message. Pt Voiced understanding and would like to proceed with the TRUS BX. Information about testing sent via My Chart. Pharmacy is updated. * Telephone Encounter - RUBIN Ramirez NP - 12/08/2022 8:12 AM EDT Please notify the patient his repeat PSA 7.44, this is higher than prior PSA result. I recommend patient be scheduled for prostate biopsy as previously discussed. If he is agreeable, let me know and I will order medications. * Telephone Encounter - Ivory Haas RN - 11/03/2022 9:52 AM EDT Spoke with patient. Advised of results of PSA, elevated. Repeat in 4 weeks. Instructed to hold any sexual activity, bike riding, riding lawnmower, strenuous activity about 24 hours prior. Will call with results and if still elevated, will proceed with prostate biopsy. Pt agreed. * Telephone Encounter - RUBIN Ramirez NP - 11/03/2022 8:29 AM EDT Please notify the patient his PSA resulted at 6.67, this is a rise from prior assessment of 4.588. This is elevated for his age. I recommend repeating the test in 4 weeks, and if the PSA remains elevated moving forward with biopsy of the prostate (this was discussed at last office visit). The order for repeat PSA is in. Remind patient that there is no food/drink restriction prior to testing the PSA. Prior to having this blood work completed refrain from any sexual activity, strenuous activity or any activity such as riding a bike, riding lawnmower, motorcycle, etc... for at least 24hours. These activities can cause a temporary rise in your PSA levels. documented in this [facility]08-28-2023 Telephone encounter Note* Telephone Encounter - RUBIN Piedra CNP - 12/08/2022 8:50 AM EDT Medication orders placed. Sent to [facility] [employer] [facility]. Pt to take valium 30 minutes prior. 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 [facility] [id number] Telephone encounter Note* Telephone Encounter - Mita Maria - 12/08/2022 8:28 AM EDT Spoke to pt, advised of Dean's message. Pt Voiced understanding and would like to proceed with the TRUS BX. Information about testing sent via My Chart. Pharmacy is updated. [facility] [id number] Telephone encounter Note* Telephone Encounter - RUBIN Ramirez NP - 12/08/2022 8:12 AM EDT Please notify the patient his repeat PSA 7.44, this is higher than prior PSA result. I recommend patient be scheduled for prostate biopsy as previously discussed. If he is agreeable, let me know and I will order medications. [facility] [id number] Telephone encounter Note* Telephone Encounter - Ivory Haas RN - 11/03/2022 9:52 AM EDT Spoke with patient. Advised of results of PSA, elevated. Repeat in 4 weeks. Instructed to hold any sexual activity, bike riding, riding lawnmower, strenuous activity about 24 hours prior. Will call with results and if still elevated, will proceed with prostate biopsy. Pt agreed. [facility] [id number] Telephone encounter Note* Telephone Encounter - RUBIN Ramirez NP - 11/03/2022 8:29 AM EDT Please notify the patient his PSA resulted at 6.67, this is a rise from prior assessment of 4.588. This is elevated for his age. I recommend repeating the test in 4 weeks, and if the PSA remains elevated moving forward with biopsy of the prostate (this was discussed at last office visit). The order for repeat PSA is in. Remind patient that there is no food/drink restriction prior to testing the PSA. Prior to having this blood work completed refrain from any sexual activity, strenuous activity or any activity such as riding a bike, riding lawnmower, motorcycle, etc... for at least 24hours. These activities can cause a temporary rise in your PSA levels. [facility] [id number] Telephone encounter Note* Telephone Encounter - Kassidy Juarez LPN - 10/28/2022 4:13 PM EDT Patient informed of dean's message verbatim to repeat PSA around . Patient verbalized understanding and have no further questions or concerns at this time [facility] [id number] Miscellaneous Notes* Telephone Encounter - Kassidy Juarez LPN - 10/28/2022 4:13 PM EDT Patient informed of dean's message verbatim to repeat PSA around . Patient verbalized understanding and have no further questions or concerns at this time * Telephone Encounter - Karolina Krueger RN - 10/28/2022 9:29 AM EDT LVM to have PSA done this week. Advised to call office if any questions. * Telephone Encounter - RUBIN Ramirez NP - 10/28/2022 7:56 AM EDT Please call the patient to remind him to repeat PSA now, the order is in. Thanks. * Telephone Encounter - RUBIN Ramirez NP - 10/28/2022 7:55 AM EDT ----- Message from RUBIN Ramirez NP sent at 05/07/2022 3:34 PM EST ----- Notify patient to repeat PSA documented in this [facility]SM[facility] HospitalAmkfkg36-13-0467 Telephone encounter Note* Telephone Encounter - Karolina Krueger RN - 10/28/2022 9:29 AM EDT LVM to have PSA done this week. Advised to call office if any questions. [facility] [id number] Telephone encounter Note* Telephone Encounter - RUBIN Ramirez NP - 10/28/2022 7:56 AM EDT Please call the patient to remind him to repeat PSA now, the order is in. Thanks. [facility] HospitalAxqaoe22-24-0197 Telephone encounter Note* Telephone Encounter - RUBIN Ramirez NP - 10/28/2022 7:55 AM EDT ----- Message from RUBIN Ramirez NP sent at 05/07/2022 3:34 PM EST ----- Notify patient to repeat PSA [facility] [id number] History of Present illness Narrative* RUBIN Ramirez NP - 05/07/2022 3:15 PM EST Images from the original note were not included. RUBIN Ramirez NP 05/07/2022 at 3:25 PM Urology Office Visit PATIENT NAME: Stephane Toribio DATE OF : 1960 TODAY'S DATE: 05/07/2022 CHIEF COMPLAINT: Chief Complaint Patient presents with Other Pt here for PSA. He does experience hesitancy and nocturia x1-2. Pt denies hematuria, dysuria, pelvic pain, flank pain Subjective: Mr. Toribio is a 61 y.o. male who presents to the office for elevated PSA & bph. Last PSA: Lab Results Component Value Date PSA 4.588 (H) 05/02/2022 PSA 4.256 (A) 10/24/2021 PSA 3.523 09/20/2019 PSA 7.18 - 10/03/2021. This was when patient was utilized supplement for testosterone. He has no personal history and no family history of prostate cancer. He has a prior genitourinary history of BPH (managed with Flomax). Voids q 1-2 hrs. Nocturia x 1-2. Urgency: Occasional. UUI: Denies. Dysuria: Denies. Hematuria: Denies. Stream is fair. His AUA Symptom Score is 21, manifested as irritative symptoms including frequency, urgency, and nocturia. He also endorses ongoing issues with low energy & weight gain. Would like to assess testosterone. ROS: no dysuria, trouble voiding, or hematuria positive for - nocturia Medications Prior to Admission medications Not on File Past Medical History: Diagnosis Date H/O exercise stress test Hypertension MACY on CPAP Osteomyelitis (CMS/HCC) RIGHT RING FINGER AND SCHEDULED FOR THE SURGERY ON 03/05/[address] [facility] Past Surgical History: Procedure Laterality Date CHOLECYSTECTOMY [facility] COLONOSCOPY COLONOSCOPY FINGER AMPUTATION Right 03/05/2020 right small finger -dr jackson FINGER SURGERY Left [facility] OTHER SURGICAL HISTORY EXCISION OF LIPOMA FROM THE BACK AT [facility] LONG TIME AGO SCAPHOID FRACTURE SURGERY Right [facility] WISDOM TOOTH EXTRACTION Vitals: BP (!) 157/68 Pulse 71 Ht 5' 10 (1.778 m) Wt (!) 322 lb (146 kg) BMI 46.20 kg/m Physical Exam Vitals and nursing note reviewed. Constitutional: Appearance: Normal appearance. Abdominal: General: There is no distension. Palpations: There is no mass. Tenderness: There is no abdominal tenderness. There is no right CVA tenderness or left CVA tenderness. Neurological: Mental Status: He is alert. Labs: @LASTPROCPOC@ Hemoglobin Date Value Ref Range Status 03/01/2020 13.6 13.0 - 18.0 g/dL Final 09/20/2019 13.9 13.0 - 18.0 g/dL Final PROSTATIC SPECIFIC AG Date Value Ref Range Status 10/24/2021 4.256 (A) <4.000 ng/mL Final Comment: Testing performed on the Orth[employer] [facility] 5600 using an immunometric methodology. Results obtained by different methods should not be used interchangeably. PROSTATE SPECIFIC AG SCREEN Date Value Ref Range Status 05/02/2022 4.588 (H) <4.000 ng/mL Final [facility] PROSTATE SPECIFIC ANTIGEN Date Value Ref Range Status 09/20/2019 3.523 <4.000 ng/mL Final Comment: Testing performed on the Ortho [facility] 5600 using an immunometric methodology. Results obtained by different methods should not be used interchangeably. Impression/Plan Stephane was seen today for other. Diagnoses and all orders for this visit: Screening PSA (prostate specific antigen) (Primary) - PSA Screening; Future - PSA Screening Benign prostatic hyperplasia with nocturia Lack of energy - Testosterone; Future - Hematocrit; Future - Testosterone - Hematocrit - Reviewed most recent PSA result, now at 4.588 (4.256) - Shared decision making performed today regarding PSA screening in addition to age and ethnicity adjusted total PSA. - I reiterated that PSA blood testing is an imperfect screening tool but when used appropriately can help detect prostate cancer. - I explained the best way to interpret PSA is to establish a trend and follow the kinetics of PSA. - I explained both LORRAINE and PSA help determine when a prostate biopsy is warranted. Reviewed prior LORRAINE, and that it was wnl limits. - Discussed that options today include observation of PSA trend (reassess in 6 months) versus trus biopsy. He has opted to reassess in 6 months. - Continue Flomax for BPH with LUTs. - Continue behavioral modifications. Education provided on timed voiding, creating drinking patterns (spreaing water intake through day, avoiding drinking water 2-3 hours prior to bedtime, and avoiding irritative foods/beverages), weight loss, and avoiding constipation. - Patient would like to evaluate testosterone level, as he has been experiencing low energy & weight gain. - Testosterone & hematocrit, prior to 11 AM. - Follow up with results, PSA in 6 months, and OV in 1 year. Follow Up: Follow up in about 1 year (around 05/07/2023) for BPH/PSA check . --Dean Arriaga APRN, STARCH TREATING ASSISTANT on 05/07/2022 at 3:25 PM An electronic signature was used to authenticate this note. documented [facility] this [id number] Discharge instructions* Instructions* Dora Beavers - 04/07/2019 Patient ambulatory for discharge post stress test. No apparent distress noted. Patient voiced no complaints. documented in this [place] [place] Phone: [phone] [phone] History of Present illness Narrative* Dora Beavers - 04/07/2019 1:30 PM EST Test explained, patient verbalized understanding. At peak exercise patient complained of dyspnea and fatigue which resolved in early recovery. Denied chest pain before during or after exercise. No complaints in recovery. documented in this [employer] [employer] Work Phone: Discharge summary Author Kamaljit Bach [facility] Note Date/Time January 16, 2025 1: 35pm [facility] ENTER [address] [place] [address] Discharge Summary Signed Patient: Stephane Toribio MR#: [id number] : 1960 Acct:[id number] Age/Sex: 64 / M Adm Date: 5 Loc: 4N Room: [address] [place] [address]: Kamaljit Bach MD Copies to: NON STAFF Kamaljit Bach MD~ Providers Date of Discharge: 01/16/25 Discharging Provider: Kamaljit Bach Primary Care Provider: NON STAFF Consults: 01/14/25 17:46 Consult to Urology Routine Comment: Consulting Provider: Hitesh Nava Reason For Exam: Gross hematuria Has Provider Been Notified: Yes Date of Notification: 01/14/25 Time of Notification: 11:56 Discharge Diagnosis Final Diagnosis Final Discharge Diagnosis: Acute hematuria from BPH, with acute urine retention Chronic problems Obesity class III BMI 46 BPH Summary Hospital Course Hospital course: Patient is a 64-year-old male, who presented to the emergency department on January 14 with complaints of gross hematuria. A Mendoza catheter was inserted. CT scan abdomen showed findings consistent with blood clots in the bladder. He was admitted to the hospital. On January 15 he underwent anesthesia, cystoscopy,clot evacuation and fulguration of prostatic bleeding point. There were no postoperative complications. Patient was discharged home in stable condition on January 16 with a Mendoza catheter in place. He will be followed by his urologist in [facility]. Time Spent with Patient Time spent providing/coordinating discharge services (# min): 40 Surgeries and Procedures Operation Date: 01/15/25 10:00 Actual Procedures p OR Cysto/De-Clotting/Fulguration - Hitesh Nava MD Discharge Plan Discharge Plan Patient Disposition: Home Activity: No Activity Restriction Diet: Low-Sodium Additional Instructions: *Once you are discharged, there will be a plug in the irrigation port of the catheter. Push fluids to keep the urine clear. I would notify your urologist in the [facility] immediately of what has occurred. I will provide some antibiotics to your pharmacy. Discharge him with indwelling catheter and then follow-up with urology in the [facility] Instructions: Know your Meds Prescriptions: New cephalexin 500 mg capsule 500 mg PO BID 5 Days Qty: 10 0RF hyoscyamine sulfate 0.125 mg Tablet,Disintegrating 0.125 mg sublingual Q4H PRN (Reason: Bladder Spasms) 5 Days Qty: 20 0RF Continued lisinopril 20 mg tablet 20 mg PO DAILY tamsulosin 0.4 mg capsule 0.4 mg PO DAILY pantoprazole 40 mg tablet,delayed release (DR/EC) 40 mg PO DAILY montelukast 10 mg tablet 10 mg PO DAILY finasteride 5 mg tablet 5 mg PO DAILY Discontinued aspirin 81 mg tablet 81 mg PO DAILY Follow Up: Hitesh Nava MD [Active Staff, Urology] Referral Note: Once you are discharged, there will be a plug in the irrigation port of the catheter. Push fluids to keep the urine clear. I would notify your urologist in the [facility] immediately of what has occurred. I will provide some antibiotics to your pharmacy. NON STAFF, [Primary Care Provider, Internal Medicine] Referral Note: Please arrange a follow-up appointment with your primary care provider within 7-10 days. Continuity of Care Document Health Concerns: A [facility] screening has identified you as FRAIL or AT RISK FOR FRAILTY. This puts you at a higher risk for infection, illness, falls,and other injuries. Here are four ways to help you reduce your risk of frailty: 1. IDENTIFY EARLY SIGNS OF FRAILTY ? Discuss contributing factors and concerns with your doctor 2. BE ACTIVE ? Walking and light strengthening exercises will help reduce weakness 3. EAT WELL ? Aim for three healthy meals a day that are high in protein 4. THINK POSITIVE ? Keep your mind active by being sociable and continuing to learn References: Stay Strong: Four Ways to Beat the Frailty [email or web address]/lfipfkwx-wpw-xpwwmlfljo/wjco-biyybh-u our-w hdo-bm-jwln-the-frai lty-risk Exam Physical Exam Vital Signs: Temp Pulse Resp BP Pulse Ox O2 Del Method O2 Flow Rate 98.2 F 67 18 146/79 H 96 Room Air 6 01/16/25 12:09 01/16/25 12:09 01/16/25 12:09 01/16/25 12:09 01/16/25 12:09 01/16/25 08:15 01/15/25 12:50 Documented By: Kamaljit Bach MD 01/16/25 1332 Signed By: <Electronically signed by Kamaljit Bach MD> 01/16/25 1335 [facility] Work Phone: Evaluation noteNo assessment information available [facility] Work Phone: Evaluation note* Diagnosis Encounter for screening for malignant neoplasm of prostate- Primary documented in this encounter [facility]* Diagnosis Elevated PSA- Primary Elevated prostate specific antigen (PSA) documented in this encounter [facility]* Diagnosis Elevated PSA Elevated prostate specific antigen (PSA) documented in this encounter [facility]* Diagnosis Elevated PSA- Primary Elevated prostate specific antigen (PSA) documented in this encounter [facility]* Diagnosis Digital mucous cyst of finger of left hand 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 Digital mucous cyst of right hand documented in this encounter [facility]* Diagnosis Digital mucous cyst of finger of left hand [facility] Diagnosis Digital mucous cyst of finger of left hand Ganglion, left hand [facility]* Diagnosis Digital mucous cyst of finger of left hand Ganglion, left hand [facility] Diagnosis Digital mucous cyst of finger of left hand 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 [facility]* 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[facility]* Diagnosis Low back pain, unspecified [facility]* Diagnosis Incomplete bladder emptying- Primary Benign prostatic hyperplasia with nocturia Elevated PSA Elevated prostate specific antigen (PSA) documented in this encounter [facility] note* Diagnosis Pure hypercholesterolemia, unspecified- Primary Essential (primary) hypertension Unspecified essential hypertension Benign prostatic hyperplasia without lower urinary tract symptoms Elevated prostate specific antigen (PSA) documented [facility]* Diagnosis 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 documented [facility]* Diagnosis Low back pain, unspecified- Primary [facility]* Diagnosis Low back pain, unspecified- Primary Low back pain, unspecified documented [facility]* Diagnosis Benign prostatic hyperplasia with nocturia Incomplete bladder emptying [facility]* Diagnosis Elevated PSA- Primary Elevated prostate specific antigen (PSA) Incomplete bladder emptying Nocturia Weak urinary stream Slowing of urinary stream documented [facility]* Diagnosis Screening PSA (prostate specific antigen)- Primary Special screening for malignant neoplasm of prostate Benign prostatic hyperplasia with nocturia Lack of energy Other malaise and fatigue [facility]* Diagnosis Other forms of dyspnea Acute cough [facility]* Diagnosis Palpitations documented [facility]* Diagnosis Other forms of dyspnea- Primary Acute cough Other forms of dyspnea Acute cough [facility]* Diagnosis Palpitations- Primary Palpitations [facility]* Diagnosis Pure hypercholesterolemia documented in this encounter [facility] Work Phone: Evaluation note* Diagnosis Benign prostatic hyperplasia with nocturia Incomplete bladder emptying [facility]* Diagnosis Incomplete bladder emptying- Primary Nocturia Frequency of urination Urinary frequency Benign prostatic hyperplasia with nocturia Elevated PSA Elevated prostate specific antigen (PSA) [facility]* Diagnosis Elevated PSA- Primary Elevated prostate specific antigen (PSA) [facility]* Diagnosis Elevated PSA- Primary Elevated prostate specific antigen (PSA) [facility]* Diagnosis Elevated PSA Elevated prostate specific antigen (PSA) [facility]* Diagnosis Elevated PSA- Primary Elevated prostate specific antigen (PSA) [facility]* Diagnosis Elevated PSA- Primary Elevated prostate specific antigen (PSA) [facility]* Diagnosis Elevated PSA- Primary Elevated prostate specific antigen (PSA) [facility]* Diagnosis Gross hematuria- Primary Mendoza catheter in place Other postprocedural status Urinary retention Unspecified retention of urine Bladder spasms Hypertonicity of bladder [facility]* Diagnosis Urinary retention- Primary Unspecified retention of urine Benign prostatic hyperplasia with nocturia Bladder spasms Hypertonicity of bladder Elevated PSA Elevated prostate specific antigen (PSA) [facility]* Diagnosis Benign prostatic hyperplasia with nocturia- Primary Urinary retention Unspecified retention of urine [facility]* Diagnosis Bladder spasm- Primary Hypertonicity of bladder Bladder spasm Hypertonicity of bladder Lower abdominal pain Abdominal pain, other specified site Urinary tract infection associated with indwelling urethral catheter, initial encounter Urine retention Unspecified retention of urine Lower abdominal pain Abdominal pain, other specified site Urine retention Unspecified retention of urine [facility]* Diagnosis Bacteria in urine- Primary Other nonspecific finding on examination of urine [facility]* Diagnosis Bladder spasms Hypertonicity of bladder [facility]* Diagnosis Urinary retention- Primary Unspecified retention of urine Bladder spasms Hypertonicity of bladder Elevated PSA Elevated prostate specific antigen (PSA) Benign prostatic hyperplasia with nocturia documented [facility] Author Augusto Dunia [facility] Note Date/Time January 14, 2025 6: 15pm [facility] ENTER [address] [place] [address] Hospitalist H&P Signed Patient: Stephane Toribio MR#: [id number] : 1960 Acct:[id number] Age/Sex: 64 / M Adm Date: 5 Loc: ER Room: Type: [facility] ER Attending Dr: Copies to: NON STAFF MD Roverto Raphael, DO~ HPI DATE OF EXAMINATION: 01/14/25 CHIEF COMPLAINT: Gross hematuria HISTORY OF PRESENT ILLNESS: Patient is a 64-year-old male with past medical history significant for BPH who presents with gross hematuria. Patient reports earlier today of having difficulties urinating so decided go to [facility] ER for further evaluation where he was determined have urinary tension and Mendoza catheter was placed. Patient reports later of having gross blood with clotting so decided come to [facility] ER for further evaluation and management. Patient currently being worked up with urologist in [place] due to enlarged prostate with nodules. In the ER, vital signs reviewed and are stable. Labs on admission reviewed with significant findings including elevated creatinine of 1.35 with a GFR of 58.2 Urinalysis revealed microscopic hematuria CT of the abdomen/pelvis on admission did reveal Mendoza catheter in place with decompressed urinary bladder in addition to hypodense material in the lumen of the urinary bladder consistent with blood with no other abnormalities noted in the abdomen/pelvis. Urology was consulted from the ER and patient evaluated the bedside and will be admitted to [facility] telemetry for further evaluation management. Review of Systems Review of Systems All other systems reviewed & are negative unless noted below or in HPI PMFSH Social History Smoking Status: Never smoker Substance Use Type: Alcohol Meds Medications and Allergies Allergies No Known Allergies Allergy (Verified 01/14/25 10:10) Home Medications finasteride 5 mg tablet 5 mg PO DAILY 01/14/25 [History Confirmed 01/14/25] lisinopril 20 mg tablet 20 mg PO DAILY 01/14/25 [History Confirmed 01/14/25] montelukast 10 mg tablet 10 mg PO DAILY 01/14/25 [History Confirmed 01/14/25] pantoprazole 40 mg tablet,delayed release 40 mg PO DAILY 01/14/25 [History Confirmed 01/14/25] tamsulosin 0.4 mg capsule 0.4 mg PO DAILY 01/14/25 [History Confirmed 01/14/25] Exam Physical Exam Vital Signs: Temp Pulse Resp BP Pulse Ox O2 Del Method 98.2 F 62 18 158/77 H 96 Room Air 01/14/25 10:11 01/14/25 16:13 01/14/25 16:13 01/14/25 16:13 01/14/25 16:13 01/14/25 16:13 Const General: comfortable Resp Effort & Inspection: no respiratory distress Auscultation: clear to auscultation bilaterally Cardio Rhythm: regular rhythm Heart Sounds: S1 normal and S2 normal Other: Patient noted to have gross hematuria in CBI bag Results - Hospitalist H&P Lab Results Labs: Laboratory Last Values Corrected WBC 6.1 X10E3/uL (4.1-10.5) 01/14/25 15:50 Uncorrected WBC Count 6.1 x10E3/uL (4.1-10.5) 01/14/25 15:50 RBC 4.43 x10E6/uL (3.90-5.60) 01/14/25 15:50 Hgb 13.1 g/dL (13.0-17.0) 01/14/25 15:50 Hct 38.3 % (38.8-50.0) L 01/14/25 15:50 MCV 86.6 fl (83.5-101) 01/14/25 15:50 MCH 29.6 pg (27.5-35.2) 01/14/25 15:50 MCHC 34.2 g/dL (32.5-35.6) 01/14/25 15:50 RDW 12.6 % (12.0-14.8) 01/14/25 15:50 Plt Count 160 x10E3/uL (150-450) 01/14/25 15:50 MPV 7.2 fl (6.6-10.1) 01/14/25 15:50 Neut % (Auto) 63.7 % (.) 01/14/25 15:50 Lymph % (Auto) 22.8 % (.) 01/14/25 15:50 [place] % (Auto) 12.4 % (.) 01/14/25 15:50 Eos % (Auto) 0.6 % (.) 01/14/25 15:50 Baso % (Auto) 0.5 % (.) 01/14/25 15:50 Nucleat RBC Rel Count 0.3 /100 WBC (0-0.5) 01/14/25 15:50 Neut # (Auto) 3.9 x10E3/uL (1.8-7.7) 01/14/25 15:50 Lymph # (Auto) 1.4 x10E3/uL (1.00-4.8) 01/14/25 15:50 [place] # (Auto) 0.8 x10E3/uL (0.0-0.8) 01/14/25 15:50 Eos # (Auto) 0.0 x10E3/uL (0.0-0.45) 01/14/25 15:50 Baso # (Auto) 0.0 x10E3/uL (0.0-0.2) 01/14/25 15:50 Monocyte Dist Width 18.53 % (0.00-20.00) 01/14/25 15:50 PT 11.8 Seconds (9.0-12.9) 01/14/25 15:50 INR 1.0 01/14/25 15:50 APTT 29.6 Seconds (25.1-36.5) 01/14/25 15:50 PHA Creatinine Clear 78.29 01/14/25 15:50 Sodium 139 mmol/L (136-145) 01/14/25 15:50 Potassium 4.2 mmol/L (3.5-5.1) 01/14/25 15:50 Chloride 109 mmol/L (98-107) H 01/14/25 15:50 Carbon Dioxide 24.8 mmol/L (21.0-31.0) 01/14/25 15:50 Anion Gap 9.4 mEq/L (6.0-15.0) 01/14/25 15:50 BUN 20 mg/dL (7-25) 01/14/25 15:50 Creatinine 1.35 mg/dL (0.70-1.30) H 01/14/25 15:50 Est GFR (CKD-EPI) 58.266 mL/Min 01/14/25 15:50 Glucose 117 mg/dL (70-100) H 01/14/25 15:50 Calcium 9.1 mg/dL (8.6-10.3) 01/14/25 15:50 Total Bilirubin 0.6 mg/dl (0.3-1.0) 01/14/25 15:50 AST 20 U/L (13-39) 01/14/25 15:50 ALT 21 U/L (7-52) 01/14/25 15:50 Alkaline Phosphatase 60 U/L (34-104) 01/14/25 15:50 Total Protein 6.6 gm/dL (6.4-8.9) 01/14/25 15:50 Albumin 4.1 gm/dL (3.5-5.7) 01/14/25 15:50 Globulin 2.5 gm/dL 01/14/25 15:50 Albumin/Globulin Ratio 1.6 01/14/25 15:50 Urine Color Light-red (Yellow) A 01/14/25 11:21 Urine Appearance Cloudy (Clear) A 01/14/25 11:21 Urine pH 6.0 (5.0-9.0) 01/14/25 11:21 Ur Specific [place] 1.006 (1.001-1.030) 01/14/25 11:21 Urine Protein 30 mg/dL (Negative) H 01/14/25 11:21 Urine Glucose (UA) Normal mg/dL (Normal) 01/14/25 11:21 Urine Ketones Negative (Negative) 01/14/25 11:21 Urine Occult Blood 3+ (Negative) H 01/14/25 11:21 Urine Nitrite Negative (Negative) 01/14/25 11:21 Urine Bilirubin Negative (Negative) 01/14/25 11:21 Urine Urobilinogen Normal mg/dL (Normal) 01/14/25 11:21 Ur Leukocyte Esterase 2+ (Negative) H 01/14/25 11:21 Urine RBC Innumerable /HPF (0-4) H 01/14/25 11:21 Urine WBC Innumerable /HPF (0-4) H 01/14/25 11:21 Urine WBC Clumps Many /LPF (None Seen) H 01/14/25 11:21 Ur Squamous Epith Cells 1-2 /HPF (0-2) 01/14/25 11:21 Urine Bacteria None seen /HPF (None Seen) 01/14/25 11:21 Hyaline Casts None /LPF (0-8) 01/14/25 11:21 Urine Mucus Rare /LPF 01/14/25 11:21 Assessment & Plan Assessment/Plan (1) BPH loc w urin obs/LUTS: (2) Acute urinary retention: (3) Gross hematuria: Plan Patient is a 64-year-old male with past medical history significant for BPH who presents with gross hematuria. 1. Gross hematuria CT of the abdomen/pelvis on admission did reveal Mendoza catheter in place with decompressed urinary bladder in addition to hypodense material in the lumen of the urinary bladder consistent with blood with no other abnormalities noted in the abdomen/pelvis. Urology was consulted with recommendations to maintain TBI in addition to consideration for cystoscopy in the morning. 2. Urinary retention Suspect secondary to BPH; will maintain Mendoza catheter in place Urology following for recommendations 3. Renal insufficiency Labs on admission reviewed with significant findings including elevated creatinine of 1.35 with a GFR of 58.2 Suspect secondary to the above Will continue to monitor 4. Hypertension Continue home medications IP vs OBS Justification Based on differential dx, clinical care plan, and risk of adverse events, if untreated, in my clinical judgement this patient requires an acute care setting as: OBSERVATION because of an expectation of an under 2 midnight stay. Estimated length of stay (# of days): 2 Documented By: Augusto Duque MD 01/14/252 Signed By: <Electronically signed by Augusto Duque MD> 01/14/25 1819 [facility] Work Phone: Hospital Discharge instructions Additional Instructions *Once you are discharged, there will be a plug in the irrigation port of the catheter. Push fluids to keep the urine clear. I would notify your urologist in the [facility] immediately of what has occurred. I will provide some antibiotics to your pharmacy. Discharge him with indwelling catheter and then follow-up with urology in the [facility] Work Phone: Progress note Author Kasia Choi [facility] Note Date/Time January 26, 2025 9 :09am [facility] [address] [place] [address] OFFICE VISIT Date of Service: 01/26/25 MR#: [id number] Acct: [id number] Name: STEPHANE TORIBIO Rep #: [id number] : 1960 Provider: Dr. Sigifredo Choi MD Age/Sex: 64/M [place] [facility] [place] Status: Signed HPI HPI History of Present Illness Details: This gentleman has past medical history significant for sleep apnea, hypertension and erectile dysfunction. According to him, he has been having intermittent palpitations for the last 2 years. Lately they have become more frequent. He has had event monitoring done in June of this year. Less than 1%burden of PVCs was noted however 1 6 beat run of nonsustained VT was recorded. Patient has had coronary calcium scoring done recently. It was reported as 0. According to the patient, he feels palpitations at least once a week. Accordingto him, there is an hour to 2-hour. Where and he feels his heart flutter. Denies any racing of the heart. Denies any associated dizziness or lightheadedness. No chest pains. No shortness of breath. Denies any chest pains either at rest or with exertion. No dyspnea either at rest or with exertion. Denies orthopnea or PND. He does have sleep apnea and wears a CPAP at night. Chronic lower extremity edema for which she wears compression stockings. No history of syncope or presyncope. Patient admits to excessive caffeine intake. According to him, he drinks about 8 to 10 cups of coffee a day. Intake Vital Signs 12/03/17 06:15 01/26/25 08:26 Height 5 ft 10 in 5 ft 10 in Weight: 301 lb BMI 43.2 BP 125/76 H Blood Pressure Location Lt brachial Position Sitting Respiration 18 Pulse 94 Pulse Source Monitor Intake Visit Reasons: Atrial fibrillation Log Loader Required: No Accompanied by: Is patient in pain?: No Allergies Environmental Allergies: Uncoded (dust) Allergy (Unknown, Verified 01/26/25 08:26) unknown mold Allergy (Unknown, Verified 01/26/25 08:26) unknown ragweed pollen Allergy (Unknown, Verified 01/26/25 08:26) unknown Medications ?Medication ?Instructions ?Recorded ?Confirmed ?Type Lactobacillus 1 ea PO DAILY 11/26/1701/16 History 41-B.animalis,bifid-FOS 111 mg (25 billion cell) capsule (Ultimate Probiotic-10) lisinopril 20 mg tablet 20 mg PO DAILY 11/26/1710/05 History omega-3 1,050 md-xyw-lke-dpa-fish 1 ea PO DAILY 01/16/25 History oil 1,200 mg capsule ([place]-3 2100) vitamin B comp and C no.3 15 mg-10 1 ea PO DAILY 11/2601/16/25 History mg-50 mg-5 mg-300 mg capsule (B Complex Plus Vitamin C) antiarthritic combination no.2 900 mg PO 01/16/2510/05 History mg tablet (glucosamine-chondroitin) aspirin 81 mg tablet 81 mg PO QDAY 01/16/2501/16 History azelastine 137 mcg-fluticasone 50 1 - 2 spray intranas al BID 01/16/25 01/16/25 History mcg/spray nasal spray cholecalciferol (vitamin D3) 50 50 mcg PO .COMPLEX 10/0501/16/25 History mcg (2,000 unit) capsule loratadine 10 mg tablet (Allergy 10 mg PO DAILY PRN 01/16/25 History Relief (loratadine)) melatonin 5 mg capsule 5 mg PO QHS PRN 01/16/2510/05 History montelukast 10 mg tablet 10 mg PO DAILY 01/16/2510/05 History multivitamin 1 tab PO QDAY 01/16/2501/16 History naproxen 500 mg tablet 500 mg PO Q12H PRN 01/16/25 01/16/25 History pantoprazole 40 mg tablet,delayed 40 mg PO DAILY 01/1601/16/25 History release sildenafil 100 mg tablet 50 - 100 mg PO DAILY PRN 10/0501/16/25 History tamsulosin 0.4 mg capsule 0.8 mg PO DAILY 01/16/2510/05 History tumeric PO DAILY 01/16/25 History finasteride 5 mg tablet 5 mg PO QDAY 01/26/25 History hydrocodone-acetaminophen 5-325mg 1 tab PO Q6H PRN 01/26/25 History 5mg-325mg phenazopyridine 200 mg tablet 200 mg PO TID 01/26/25 1 History solifenacin 10 mg tablet 10 mg PO QDAY 01/26/2501/26 History Have you fallen in the past year?: No PFSH Medical History (Updated 01/26/25 @ 09:[address] 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 Bilateral lower extremity edema Surgical History (Updated 01/26/25 @ 08:37 by Joceline Nj LPN) History of esophagogastroduodenoscopy (EGD) H/O prostate biopsy Status post excision of lipoma H/O removal of cyst H/O wisdom tooth extraction History of cholecystectomy History of surgery History of colonoscopy Family History Father Diabetes Arthritis Mother Arthritis Heart disease [place] Grandfather Heart disease rheumatic heart disease Social History Smoking Status: Former smoker alcohol intake: current alcohol intake frequency: a few times a week Alcohol type: beer, wine and hard liquor substance use type: does not use caffeine: Yes eating out: 4 or more times/week ROS Const Const: Negative for fatigue or weakness Eyes Eyes: Negative for change in vision ENT ENT: Positive for balance problems; Negative for dizziness Cardio Chest Pain: No Palpitations: Yes (fluttering) Edema: None Resp Respiratory: Negative for SOB with activity, SOB at rest or SOB orthopnea\SOB lying down GI GI: Negative nausea or heartburn Musc Musc: Positive for balance problems Neuro Neuro: Negative for dizziness, lightheadedness, near syncope, syncope or weakness Endo Endo: Negative for fatigue Cardiology Exam Const Appearance: comfortable and no acute distress Nutritional Appearance: obese Neck Neck: no JVD Carotids: Negative bruit Chest Auscultation: Bilateral: Clear to Auscultation Cardio Rate: regular rate Rhythm: regular rhythm Heart sounds: S1 normal and S2 normal GI GI: obese Neuro General: patient alert, patient awake and patient oriented x3 Extremities Lower Extremity Edema: Trace: Bilateral Supplemental Info Supplemental Information Diagnostics: Electrocardiogram Past Visits: Cardiology Visit Today Assessment and Plan Assessment and Plan (1) Intermittent palpitations: Status: Chronic Plan: NSVT reported on event monitoring. Check echocardiogram. Check complete metabolic panel, TSH and magnesium. (2) NSVT (nonsustained ventricular tachycardia): Status: Chronic Plan: See #1 above. Start metoprolol 25 mg twice daily. Even though the patient's calcium score was 0, with his NSVT, need to rule out the rare possibility that he may have soft plaque. Check coronary CT angio. Counseled to eliminate or at the very least, drastically cut back on caffeine intake. (3) Hypertension: Status: Chronic Plan: Lisinopril. As I am starting the patient on metoprolol, I will decrease the dose of lisinopril to 10 mg once daily. (4) Morbid obesity with BMI of 40.0-44.9, adult: Status: Chronic Plan: Lose weight. (5) Sleep apnea: Status: Chronic Plan: As per sleep medicine. Orders: Orders 12 Lead EKG performed by B[facility] Today I48.91 - Unspecified atrial fibrillation Plan As per the patient, his primary care physician is managing his lipids. Plan Details Follow Up: 3 Months Coding Level of Care Code Off vis,new,level 4 Diagnoses Intermittent palpitations R00.2 NSVT (nonsustained ventricular tachycardia) I47.29 Hypertension I10 Morbid obesity with BMI of 40.0-44.9, adult E66.01; Z68.41 Sleep apnea G47.30 Coding Level of Care Code Off vis,new,level 4 Diagnoses Intermittent palpitations R00.2 NSVT (nonsustained ventricular tachycardia) I47.29 Hypertension I10 Morbid obesity with BMI of 40.0-44.9, adult E66.01; Z68.41 Sleep apnea G47.30 Clinical Quality Measures Falls Risk Screening/Assistive Devices Have you fallen in the past year?: No 01/26/25 0909 <Electronically signed by Kasia Choi MD> Date _ Kasia Choi MD Cosigner Signature: Date (if applicable) CC: Dr. Abimael Elizabeth, ~ [facility] Work Phone: Reason for referral (narrative)No reason for referral information availableWProMed[facility] Work Phone: Reason for visit Narrative* Cardiology (Routine) - Closed Specialty Diagnoses / Procedures Referred By Contac t Referred To Contact Cardiology Diagnoses Palpitations Procedures Cardiac event monitor (14 days) MI XTRNL ECG & 48 HR RECORDING MI EXTERNAL ECG SCANNING ANALYSIS REPORT MI XTRNL ECG CONTINUOUS RHYTHM W/I&R UP TO 48 HRS MI XTRNL MOBILE CV TELEMETRY W/I&REPORT 30 DAYS MI XTRNL MOBILE CV TELEMETRY W/TECHNICAL SUPPORT Tresa Jordan [address] [place] [address] Phone: tel: fax: Referral ID Status Reason Start Date Expiration Date Visits Re quested Visits Authorized [id number] Closed 06/10/2024 06/05/2025 1 1 [facility] for visit Narrative* Imaging (Routine) - Pending Review Specialty Diagnoses / Procedures Referred By Contac t Referred To Contact Radiology Diagnoses Pure hypercholesterolemia Procedures CT cardiac scoring wo IV contrast Abimael Elizabeth DO [address] [place] [address] Phone: tel: fax: Referral ID Status Reason Start Date Expiration Date Visits Requested Visits Authorized [id number] Pending Review Perform Procedure 10/31/2024 10/31/2025 1 1 [facility] Work Phone: Reason for visit Narrative* Imaging (Routine) - Closed Specialty Diagnoses / Procedures Referred By Contac t Referred To Contact Radiology Diagnoses Elevated PSA Procedures MR pelvis w and wo contrast Reji Maradiaga MD [address] [facility] [address] [place] [address] Phone: tel: fax: Referral ID Status Reason Start Date Expiration Date Visits Re quested Visits Authorized [id number] Closed 01/05/2025 01/05/2026 1 1 [facility] Summary Purpose Family History No Family History Records Found Relationship Condition Age at Onset Recorded Date/T sharmaine father Diabetes mellitus Unknown Arthritis Unknown mother Arthritis Unknown Cardiac disease Unknown grandfather Cardiac disease Unknown Advance Directives No Advanced Directives Records FoundDocuments on File Type Date Recorded Patient Information Systems Security Manager Expl anation Advance Directives and Living Will Power of Investigator Documents on File Type Date Recorded Patient Information Systems Security Manager Expl anation ACP-Advance Directive ACP-Power of Investigator Documents on File Type Date Recorded Patient Information Systems Security Manager Expl anation Advance Directives and Livin g Will 03/02/2020 12:59 PM ACP-Advance Directive ACP-Power of Investigator Latest Code Status on File Code Status Date Activated Date Inactivated Comments Full Code 03/05/2020 11:21 AM Documents on File Type Date Recorded Patient Information Systems Security Manager Expl anation ACP-Advance Directive 03/02/2020 12:59 PM Latest Code Status on File Code Status Date Activated Date Inactivated Comments Full Code 03/05/2020 11:21 AM 03/05/2020 5:02 PM Advance Directive Response Recorded Date/ Time Living Will No November 26, 8 8:32am Power of Investigator No November 26, 2 018 8:32am Documents on File Type Date Recorded Patient Information Systems Security Manager Expl anation Advance Directives and Living Will 03/01/2020 Documents on File Type Date Recorded Patient Information Systems Security Manager Expl anation Advance Directives and Livin g Will 03/01/2020 Advance Directives and Livin g Will 01/09/2023 9:57 AM Latest Code Status on File Code Status Date Activated Date Inactivated Comments Full Code 02/20/2023 10:34 AM 02/20/2023 2:56 PM Date Activated Date Inactivated Comments 02/20/2023 10:34 AM 02/20/2023 2:56 PM Documents on File Type Date Recorded Patient Information Systems Security Manager Expl anation Advance Directives and Livin g Will 03/01/2020 Advance Directives and Livin g Will 01/09/2023 9:57 AM Date Activated Date Inactivated Comments 02/20/2023 10:34 AM 02/20/2023 2:56 PM Advance Directive Response Recorded Date/ Time Advance Directives No January 14, 2025 11:06am Date Activated Date Inactivated Comments 01/21/2025 10:59 PM Date Activated Date Inactivated Comments 02/20/2023 10:34 AM 02/20/2023 2:56 PM Date Activated Date Inactivated Comments 01/21/2025 10:59 PM Date Activated Date Inactivated Comments 02/20/2023 10:34 AM 02/20/2023 2:56 PM Date Activated Date Inactivated Comments 01/21/2025 10:59 PM 01/24/2025 6:58 PM Discharge Instructions * Attachments The following attachments cannot be sent through Care Everywhere. * Cellulitis (Lao) * Paronychia (Lao) documented in this encounter* Instructions* Brenda Jack RN - 03/01/2020 PLEASE BE AWARE THAT VISITORS UNDER THE AGE OF 12 AND FOOD/DRINKS ARE NO LONGER PERMITTED IN THE SAME DAY SURGERY DEPARTMENT. IF YOU USE A CPAP MACHINE OR RESCUE INHALER AT HOME PLEASE BRING THESE ITEMS WITH YOU THE DAY OF SURGERY. MEDICATION INSTRUCTIONS PRIOR TO SURGERY PLEASE BRING PROVIDED LIST BACK WITH YOU THE DAY OF SURGERY WITH DATE/TIME LAST DOSE OF MEDICATIONSTAKEN. Hold fish oil, multi vitamin b complex vitamin d and Asa naproxen 5 days prior to surgery. Last dose was 03/01. Hold lisinopril the am of surgery. May take ibuprofen up until 24 hours prior to surgery and then only tylenol the day before surgery. During pre-admission testing appointment, patient instructed on the following To arrive 2 hours prior to scheduled surgery Upon arrival, stop in registration just past the main entrance and provide them with a photo id [facility] card if they have one After registration, come to the same day surgery department, stopping at the main desk They need to have made arrangements for a ride home following surgery and a phone number will need to be provided before going back to the operating room. If public transportation will be used after surgery, they are made aware that a responsible adult needs to accompany them. They need to make arrangements to have someone with them when they get home from surgery. Leave all jewelry, contacts and valuables at home Wear loose comfortable clothing to go home in Bring in the medication list provided for them and write in the date/time last dose was taken No food (including candy, gum and mints) the day of surgery They may have clear liquids ( water, black coffee/no liquid or powder creamer, clear tea, clear fruit juices/no pulp and carbonated beverages) up until 2 hours prior to surgery Do not drink alcohol, use recreational drugs or smoke/use nicotine products 24 hours prior to surgery. Encouraged to write down any questions they may have for the surgeon, anesthesiologist or any member of the surgical team, and to bring list of questions in with them To not shave the surgical site and to follow instructions provided on showering with the CHG solution During the pre-admission testing appointment, this nurse reviewed and provided patient with The taking care of yourself after surgery paper Billing information for anesthesia patients Preparing for your surgical procedure pamphlet After visit Summary with medication list and medication instructions The CHG solution and shower card with instruction. Pt encouraged to follow instructions on card Prior to end of PAT appointment, pt acknowledged understanding of information and instructions provided in preparation of upcoming surgery. documented in this encounter* Instructions* Sharon Linton PA-C - 03/05/2020 Keep dressing on, clean, and dry until follow up appointment in 1-2 weeks. Elevate and Ice for pain control. You may also take the prescribed Monette for pain relief and alternate this with over the counter naproxen or tylenol as needed for relief of pain and swelling Please take the prescribed antibiotics- keflex for 10 days Encourage ROM of index finger, long finger, ring finger, little finger, thumb in dressing with goalof touching fingertips to palm by initial post op appointment. Non weight bearing in operative extremity. You may remove the sling in 12-36 hours in when the nerve block wears off and feeling returns to your arm and hand. At that time we encourage ROM of the elbow documented in this encounter Assessments Diagnosis Cellulitis of right little finger Diagnosis S/P surgical amputation of finger, right History of Present Illness * Lucy Stevenson RN - 03/05/2020 2:50 PM EST PT AND FAMILY VERBALIZED UNDERSTANDING OF HOMEGOING INSTRUCTIONS, PT VERBALIZED A READINESS TO BE DISCHARGED HOME. PT DISCHARGED HOME VIA WHEELCHAIR ACCOMPANIED BY RN. PT HAS HAD ALL THEIR BELONGINGSRETURNED TO THEM AT DISCHARGE * Lucy Stevenson RN - 03/05/2020 1:52 PM EST PATIENT RECEIVED FROM OR VIA CART TO PHASE II . ALERT SPONT RESP. 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 RX HERE Chief Complaint Admit Date PRE-OP August 25, 2024 3:57p m Chief Complaint Admit Date PRE-OP August 25, 2024 3:57p m wound October 05, 2024 8:23 am wound October 05, 2024 12:1 0pm Reason for Visit Admit Date Infected wound October 05, 2024 8:23 am Nonhealing nonsurgical wound October 05, 2024 8:23am Nonhealing ulcer of right lower leg October 05, 2024 8:23am Chief Complaint Admit Date PRE-OP August 25, 2024 3:57p m wound October 05, 2024 8:23 am wound October 05, 2024 12:1 0pm wound October 12, 2024 12:26 pm wound October 26, 2024 12:1 3pm wound November 02, 2024 12:0 9pm wound November 09, 2024 11:0 0am wound November 09, 2024 11:4 8am Reason for Visit Admit Date Infected wound October 05, 2024 8:23 am Nonhealing nonsurgical wound October 05, 2024 8:23am Nonhealing ulcer of right lower leg October 05, 2024 8:23am Infected wound November 09, 2024 11:0 0am Nonhealing nonsurgical wound November 09, 2024 11:00am Nonhealing ulcer of right lower leg November 09, 2024 11:00am Ulcer of right lower extremity with necr osis of muscle November 09, 2024 11:00am Chief Complaint Admit Date PRE-OP August 25, 2024 3:57p m wound October 05, 2024 8:23 am wound October 05, 2024 12:1 0pm wound October 12, 2024 12:26 pm wound October 26, 2024 12:1 3pm wound November 02, 2024 12:0 9pm wound November 09, 2024 11:0 0am wound November 09, 2024 11:4 8am wound November 23, 2024 11 :48am wound December 01, 2024 2: 08pm wound December 08, 2024 1: 00pm wound December 08, 2024 1: 40pm Reason for Visit Admit Date Infected wound October 05, 2024 8:23 am Nonhealing nonsurgical wound October 05, 2024 8:23am Nonhealing ulcer of right lower leg October 05, 2024 8:23am Infected wound November 09, 2024 11:0 0am Nonhealing nonsurgical wound November 09, 2024 11:00am Nonhealing ulcer of right lower leg November 09, 2024 11:00am Ulcer of right lower extremity with necr osis of muscle November 09, 2024 11:00am Infected wound December 08, 2024 1: 00pm Nonhealing nonsurgical wound November 1:00pm Nonhealing ulcer of right lower leg Augu 2024 1:00pm Ulcer of right lower extremity with fat layer exposed December 08, 2024 1:00pm Ulcer of right lower extremity with necr osis of muscle December 08, 2024 1:00pm Chief Complaint Admit Date wound October 05, 2024 8:23 am wound October 05, 2024 12:1 0pm wound October 12, 2024 12:26 pm wound October 26, 2024 12:1 3pm wound November 02, 2024 12:0 9pm wound November 09, 2024 11:0 0am wound November 09, 2024 11:4 8am wound November 23, 2024 11 :48am wound December 01, 2024 2: 08pm wound December 08, 2024 1: 00pm wound December 08, 2024 1: 40pm wound December 22, 2024 4:03pm wound December 29, 2024 4:26pm wound January 05, 2025 9:15am wound January 05, 2025 9:35am Reason for Visit Admit Date Infected wound October 05, 2024 8:23 am Nonhealing nonsurgical wound October 05, 2024 8:23am Nonhealing ulcer of right lower leg October 05, 2024 8:23am Infected wound November 09, 2024 11:0 0am Nonhealing nonsurgical wound November 09, 2024 11:00am Nonhealing ulcer of right lower leg November 09, 2024 11:00am Ulcer of right lower extremity with necr osis of muscle November 09, 2024 11:00am Infected wound December 08, 2024 1: 00pm Nonhealing nonsurgical wound November 1:00pm Nonhealing ulcer of right lower leg Augu st 2024 1:00pm Ulcer of right lower extremity with fat layer exposed December 08, 2024 1:00pm Ulcer of right lower extremity with necr osis of muscle December 08, 2024 1:00pm Bilateral lower extremity edema Septembe r 2024 9:15am Ulcer of right lower extremity with fat layer exposed January 05, 2025 9:15am Chief Complaint Admit Date catheter issues January 14, 2025 5: 47pm Reason for Visit Admit Date Abnormal urologic system diagnostic imag ing January 14, 2025 5:47pm Acute urinary retention January 14 5:47pm BPH loc w urin obs/LUTS January 14 5:47pm Gross hematuria January 14, 2025 5: 47pm Chief Complaint Admit Date wound October 12, 2024 12:26 pm wound October 26, 2024 12:1 3pm wound November 02, 2024 12:0 9pm wound November 09, 2024 11:0 0am wound November 09, 2024 11:4 8am wound November 23, 2024 11 :48am wound December 01, 2024 2: 08pm wound December 08, 2024 1: 00pm wound December 08, 2024 1: 40pm wound December 22, 2024 4:03pm wound December 29, 2024 4:26pm wound January 05, 2025 9:15am wound January 05, 2025 9:35am wound January 12, 2025 6: 04pm wound January 19, 2025 5: 47pm Atrial fibrillation January 26, 2025 8 :23am EORDERS January 26, 2025 9 :30am wound January 26, 2025 1 :15pm wound January 26, 2025 1 :44pm Reason for Visit Admit Date Infected wound November 09, 2024 11:0 0am Nonhealing nonsurgical wound November 09, 2024 11:00am Nonhealing ulcer of right lower leg Yuly 30th, 2025 11:00am Ulcer of right lower extremity with necr osis of muscle November 09, 2024 11:00am Infected wound December 08, 2024 1: 00pm Nonhealing nonsurgical wound November 1:00pm Nonhealing ulcer of right lower leg Augu st 2024 1:00pm Ulcer of right lower extremity with fat layer exposed December 08, 2024 1:00pm Ulcer of right lower extremity with necr osis of muscle December 08, 2024 1:00pm Bilateral lower extremity edema Septembe r 2024 9:15am Ulcer of right lower extremity with fat layer exposed January 05, 2025 9:15am Hypertension January 26, 2025 8 :23am Intermittent palpitations January 26, 2025 8:23am Morbid obesity with BMI of 40.0-44.9, ad ult January 26, 2025 8:23am NSVT (nonsustained ventricular tachycard ia) January 26, 2025 8:23am Sleep apnea January 26, 2025 8 :23am Ulcer of right lower extremity with fat layer exposed January 26, 2025 1:15pm Additional Source Comments (unrecognized sect ion and content) No Status Records FoundNo Status Records FoundNo Status Records FoundNo Status Records FoundNo Status Records FoundNo Status Records FoundNo Status Records Found INFORMATION SOURCE (unrecogn ized section and content) DATE CREATED AUTHOR 01/02/2018 [facility] DATE CREATED AUTHOR AUTHOR'S ORGANIZ ATION 12/23/2021 [facility] DATE CREATED AUTHOR AUTHOR'S ORGANIZ ATION 11/10/2024 [facility] DATE CREATED AUTHOR AUTHOR'S ORGANIZ ATION 01/28/2025 [facility] DATE CREATED AUTHOR AUTHOR'S ORGANIZ ATION 02/11/2025 [facility] DATE CREATED AUTHOR AUTHOR'S ORGANIZ ATION 02/14/[address] [facility] DATE CREATED AUTHOR AUTHOR'S ORGANIZ ATION 02/23/2025 [facility] Reason for Visit (unrecogniz ed section and content) Reason Comments Other Reason Onset Date Comments Other 10/28/2022 Reason Onset Date Comments Results 11/03/2022 Reason Comments Procedure TRUS BX Reason Comments New Patient Bilateral cyst in mi ddle fingers Reason Onset Date Comments Surgery Scheduling 01/09/2023 Surgery Sched uling Reason Comments Post-op DOS 02/20/23 Mucous cyst excision left long finger with with simple primary closure and Arthrotomy DIP joint long finger with excision of osteophytes Reason Comments 1 year follow up PSA/BPH Patient denies any new or different pain anywhere, denies dysuria, gross hematuria, nocturia x1, denies fully emptying bladder with urination, states urine stream is weak Reason Comments Benign Prostatic Hypertrophy 6 month fol low up, Pt states they are well no urologic concerns - HX BPH with incomplete bladder emptying Reason Comments Other Pt here for PSA. He does experience hesitancy and nocturia x1-2. Pt denies hematuria, dysuria, pelvic pain, flank pain Reason Onset Date Comments Advice Only 05/17/2024 Reason Comments Other Annual follow up, bp h, would like to discuss testosterone for lethargy Sometimes where I can't get anything out, unsure of emptying, dribbling stream Nocturia x1-2, denies hematuria and dysuria Reason Onset Date Comments Results 01/03/2025 PSA Reason Onset Date Comments Results 01/12/2025 MRI Reason Onset Date Comments Results 01/12/2025 MRI Biopsy 01/12/2025 Scheduling Reason Comments Urinary Catheter Problem Patient states he believes his mendoza catheter has a blockage. States decreased output since 0530hrs per patient. Patient stating he only has pain when he has a spasm. Patient alert/oriented x 4. GCS 15. No distress noted. No other complaints or concerns per patient. Reason Comments Other Follow up, ER Has fo ariadne catheter, some blood clotsBladders spasms with great discomfort Needs refills of antispasm medication Reason Comments Urinary Catheter Problem Reports having mendoza placed at another hospital Thursday while out of town, here today after completing antibiotics c/o passing blood clots/bladder spasms Specialty Diagnoses / Procedures Referred By Devon t Referred To Contact Diagnoses Urine retention Lower abdominal pain Bladder spasm Urinary tract infection associated with indwelling urethral catheter, initial encounter Procedures . Suleiman Rey MD [address] [place] [address] Phone: tel: fax: [facility] Observation Unit [address] [place] [id number] Phone: tel: Referral ID Status Reason Start Date Expiration Date Visits Re quested Visits Authorized [id number] 1 1 Reason Onset Date Comments Other 02/05/2025 Reason Onset Date Comments Urinary Catheter Problem 02/05/2025 Reason Comments Other Discuss MRI results, catheter pains (sharp) Would like to discuss catheter changing schedule, fears of bleeding if changed Needs script altered for spasms to x2 a day (vesicare) Care Teams (unrecognized sec tion and content) Team Status: Active Member Role Status Dates NON STAFF Primary Care Provider Active Team Status: Inactive Member Role Status Dates NON STAFF Primary Care Provider Active Start: January 14, 2025 End: January 16, 2025 Roverto Wood DO Emergency Provider Active St art: January 14, 2025 End: January 16, 2025 Augusto Duque MD Admit Provider Active Start: Jan End: January 16, 2025 Hitesh Nava MD Other Provider Active Start: January 14, 2025 End: January 16, 2025 Kamaljit Bach MD Attending Provider Active St art: January 14, 2025 End: January 16, 2025 Utilities Equipment Repairer Relationship Specialty Start Date End Date Luis ElizabethuaDO [address] [place], [place] [id number] PCP - General 09/05/17 Utilities Equipment Repairer Relationship Specialty Start Date End Date Luis Elizabethua [address] [place] [address] PCP - General 09/05/17 Utilities Equipment Repairer Relationship Specialty Start Date End Date Luis Elizabethua [address] [place] [phone] PCP - General 09/05/17 Utilities Equipment Repairer Relationship Specialty Start Date End Date Luis ElizabethuaDO [address] [place] [phone] PCP - General 09/05/17 Utilities Equipment Repairer Relationship Specialty Start Date End Date Abimael Elizabeth DO [address] [place] [phone] PCP - General 09/05/17 Flor Barfield DO [address] [place] [address] Surgeon Urology 12/19/22 Utilities Equipment Repairer Relationship Specialty Start Date End Date Abimael Elizabeth DO [address] [place] [phone] PCP - General 09/05/17 Flor Barfield DO [address] [place] [address] Surgeon Urology 12/19/22 Utilities Equipment Repairer Relationship Specialty Start Date End Date Abimael Elizabeth DO [address] [place] [phone] PCP - General 09/05/17 Flor Barfield DO [address] [place] [address] Surgeon Urology 12/19/22 Utilities Equipment Repairer Relationship Specialty Start Date End Date Abimael Elizabeth [address] [place] [phone] PCP - General 09/05/17 Flor Barfield DO [address] [place] [address] Surgeon Urology 12/19/22 Utilities Equipment Repairer Relationship Specialty Start Date End Date Abimael Elizabeth DO [address] [place] [phone] PCP - General 09/05/17 Flor Barfield DO [address] [place] [address] Surgeon Urology 12/19/22 Utilities Equipment Repairer Relationship Specialty Start Date End Date Abimael Elizabeth DO [address] [place] [phone] PCP - General 09/05/17 Flor Barfield DO [address] [place] [address] Surgeon Urology 12/19/22 Utilities Equipment Repairer Relationship Specialty Start Date End Date Abimael Elizabeth DO [address] [place] [address] PCP - General 09/05/17 Flor Barfield DO [address] [place] [address] Surgeon Urology 12/19/22 Utilities Equipment Repairer Relationship Specialty Start Date End Date Abimael Elizabeth [address] [place] [phone] PCP - General 09/05/17 Flor Barfield DO [address] [place] [address] Surgeon Urology 12/19/22 Utilities Equipment Repairer Relationship Specialty Start Date End Date GlennAbimael viramontes [address] [place] [phone] PCP - General 09/05/17 Flor Barfield DO [address] [place] [address] Surgeon Urology 12/19/22 Utilities Equipment Repairer Relationship Specialty Start Date End Date Abimael Elizabeth [address] [place] [phone] PCP - General 09/05/17 Flor Barfield DO [address] [place] [address] Surgeon Urology 12/19/22 Utilities Equipment Repairer Relationship Specialty Start Date End Date Glenn AbimaelDO [address] [place] [phone] PCP - General 09/05/17 Flor Barfield DO [address] [place] [address] Surgeon Urology 12/19/22 Utilities Equipment Repairer Relationship Specialty Start Date End Date Glenn AbimaelDO [address] [place] [phone] PCP - General 09/05/17 Flor Barfield DO [address] [place] [address] Surgeon Urology 12/19/22 Utilities Equipment Repairer Relationship Specialty Start Date End Date Abimael Elizabeth DO [address] [place] [phone] PCP - General 09/05/17 Flor Barfield DO [address] [place] [address] Surgeon Urology 12/19/22 Utilities Equipment Repairer Relationship Specialty Start Date End Date Abimael Elizabeth DO [address] [place] [phone] PCP - General 09/05/17 Flor Barfield DO [address] [place] [address] Surgeon Urology 12/19/22 Utilities Equipment Repairer Relationship Specialty Start Date End Date Abimael Elizabeth DO [address] [place] [phone] PCP - General 09/05/17 Flor Barfield DO [address] [place] [address] Surgeon Urology 12/19/22 Utilities Equipment Repairer Relationship Specialty Start Date End Date Abimael Elizabeth DO [address] [place] [phone] PCP - General 09/05/17 Flor Barfield DO [address] [place] [address] Surgeon Urology 12/19/22 Reji Maradiaga MD [address] [place] [address] Surgeon Urology 01/01/24 Utilities Equipment Repairer Relationship Specialty Start Date End Date Abimael Elizabeth DO [address] [place] [phone] PCP - General 09/05/17 Flor Barfield DO [address] [place] [address] Surgeon Urology 12/19/22 Reji Maradiaga MD [address] [place] [phone] Surgeon Urology 01/01/24 Utilities Equipment Repairer Relationship Specialty Start Date End Date Abimael Elizabeth DO [address] [place] [phone] PCP - General 09/05/17 Utilities Equipment Repairer Relationship Specialty Start Date End Date Abimael Elizabeth DO [address] [place] [phone] PCP - General 09/05/17 Flor Barfield DO [address] [place] [address] Surgeon Urology 12/19/22 Reji Maradiaga MD [address] [place] [address] Surgeon Urology 01/01/24 Utilities Equipment Repairer Relationship Specialty Start Date End Date Abimael Elizabeth DO [address] [place] [phone] PCP - General 09/05/17 Flor Barfield DO [address] [place], [place] [id number] Surgeon Urology 12/19/22 Reji Maradiaga MD [address] [place] [phone] Surgeon Urology 01/01/24 Utilities Equipment Repairer Relationship Specialty Start Date End Date Abimael Elizabeth DO [address] [place] [phone] PCP - General 09/05/17 Flor Barfield DO [address] [place] [address] Surgeon Urology 12/19/22 Reji Maradiaga MD [address] [place] [address] Surgeon Urology 01/01/24 Utilities Equipment Repairer Relationship Specialty Start Date End Date Abimael Elizabeth DO [address] [place] [phone] PCP - General 09/05/17 Flor Barfield DO [address] [place] [address] Surgeon Urology 12/19/22 Reji Maradiaga MD [address] [place] [phone] Surgeon Urology 01/01/24 Team Status: Active Member Role Status Dates Dr. Abimael Elizabeth DO Family Provider Active Dr. Abimael Elizabeth DO Primary Care Provider Active Team Status: Inactive Member Role Status Dates Dr. Abimael Elizabeth DO Primary Care Provider Active Start: August 25, 2024 End: August 25, 2024 Dr. Suleiman Toribio MD Attending Provider Active Start: August 25, 2024 End: August 25, 2024 Dr. Suleiman Toribio MD Referring Provider Active Start: August 25, 2024 End: August 25, 2024 Team Status: Active Member Role/Relationship Status Dates Dr. Abimael Elizabeth DO Primary Care Provider Active Team Status: Inactive Member Role/Relationship Status Dates Dr. Abimael Elizabeth DO Primary Care Provider Active Start: August 25, 2024 End: August 25, 2024 Dr. Suleiman Toribio MD Attending Provider Active Start: August 25, 2024 End: August 25, 2024 Dr. Suleiman Toribio MD Referring Provider Active Start: August 25, 2024 End: August 25, 2024 Team Status: Inactive Member Role/Relationship Status Dates Dr. Abimael Elizabeth DO Primary Care Provider Active Start: October 05, 2024 End: October 10, 2024 Chacha Dunham NP, FINANCIAL PLANNING CONSULTANT-C Attending Provider Active Start: October 05, 2024 End: October 10, 2024 Susan Ray NP Referring Provider Active St art: October 05, 2024 End: October 10, 2024 Team Status: Active Member Role/Relationship Status Dates Dr. Abimael Elizabeth DO Primary Care Provider Active Start: October 05, 2024 Chacha Dunham FINANCIAL PLANNING CONSULTANT, FINANCIAL PLANNING CONSULTANT-C Attending Provider Active Start: October 05, 2024 Chacha Dunham FINANCIAL PLANNING CONSULTANT, FINANCIAL PLANNING CONSULTANT-C Other Provider Active S tart: October 05, 2024 Susan Ray NP Referring Provider Active St art: October 05, 2024 Utilities Equipment Repairer Relationship Specialty Start Date End Date Abimael Elizabeth DO [address] [address] PCP - General Family Medicine 11/03/24 Team Status: Active Member Role/Relationship Status Dates Dr. Abimael Elizabeth DO Primary Care Provider Active Start: October 12, 2024 Chacha Dunham FINANCIAL PLANNING CONSULTANT, FINANCIAL PLANNING CONSULTANT-C Attending Provider Active Start: October 12, 2024 Chacha Dunham FINANCIAL PLANNING CONSULTANT, FINANCIAL PLANNING CONSULTANT-C Other Provider Active S tart: October 12, 2024 Flor FINANCIAL PLANNING CONSULTANT, [place] Referring Provider Active St art: October 12, 2024 Team Status: Active Member Role/Relationship Status Dates Dr. Abimael Elizabeth DO Primary Care Provider Active Start: October 26, 2024 Chacha Dunham FINANCIAL PLANNING CONSULTANT, FINANCIAL PLANNING CONSULTANT-C Attending Provider Active Start: October 26, 2024 Chacha Dunham FINANCIAL PLANNING CONSULTANT, FINANCIAL PLANNING CONSULTANT-C Other Provider Active S tart: October 26, 2024 Flor FINANCIAL PLANNING CONSULTANT, [place] Referring Provider Active St art: October 26, 2024 Team Status: Active Member Role/Relationship Status Dates Dr. Abimael Elizabeth DO Primary Care Provider Active Start: November 02, 2024 Chacha Dunham FINANCIAL PLANNING CONSULTANT, FINANCIAL PLANNING CONSULTANT-C Attending Provider Active Start: November 02, 2024 Chacha Dunham FINANCIAL PLANNING CONSULTANT, FINANCIAL PLANNING CONSULTANT-C Other Provider Active S tart: November 02, 2024 Flor FINANCIAL PLANNING CONSULTANT, [place] Referring Provider Active St art: November 02, 2024 Team Status: Inactive Member Role/Relationship Status Dates Dr. Abimael Elizabeth DO Primary Care Provider Active Start: November 09, 2024 End: November 10, 2024 Chacha Dunham FINANCIAL PLANNING CONSULTANT, FINANCIAL PLANNING CONSULTANT-C Attending Provider Active Start: November 09, 2024 End: November 10, 2024 Flor FINANCIAL PLANNING CONSULTANT, [place] Referring Provider Active St art: November 09, 2024 End: November 10, 2024 Team Status: Active Member Role/Relationship Status Dates Dr. Abimael Elizabeth DO Primary Care Provider Active Start: November 09, 2024 Chacha Dunham FINANCIAL PLANNING CONSULTANT, FINANCIAL PLANNING CONSULTANT-C Attending Provider Active Start: November 09, 2024 Chacha Dunham FINANCIAL PLANNING CONSULTANT, FINANCIAL PLANNING CONSULTANT-C Other Provider Active S tart: November 09, 2024 Flor FINANCIAL PLANNING CONSULTANT, [place] Referring Provider Active St art: November 09, 2024 Team Status: Active Member Role/Relationship Status Dates Dr. Abimael Elizabeth DO Primary Care Provider Active Start: November 23, 2024 Chacha Dunham FINANCIAL PLANNING CONSULTANT, FINANCIAL PLANNING CONSULTANT-C Attending Provider Active Start: November 23, 2024 hCacha Dunham FINANCIAL PLANNING CONSULTANT, FINANCIAL PLANNING CONSULTANT-C Other Provider Active S tart: November 23, 2024 Susan Ray NP Referring Provider Active St art: November 23, 2024 Team Status: Active Member Role/Relationship Status Dates Dr. Abimael Elizabeth DO Primary Care Provider Active Start: December 01, 2024 Chacha Dunham NP, FINANCIAL PLANNING CONSULTANT-C Other Provider Active S tart: December 01, 2024 Flor SAUNDERS [place] Referring Provider Active St art: December 01, 2024 ELVA Euceda Attending Provider Active Star t: December 01, 2024 Team Status: Inactive Member Role/Relationship Status Dates Dr. Abimael Elizabeth DO Primary Care Provider Active Start: December 08, 2024 End: December 11, 2024 Marquita Ray NPvo Referring Provider Active St art: December 08, 2024 End: December 11, 2024 ELVA Euceda Attending Provider Active Star t: December 08, 2024 End: December 11, 2024 Team Status: Active Member Role/Relationship Status Dates Dr. Abimael Elizabeth DO Primary Care Provider Active Start: December 08, 2024 Flor SAUNDERS [place] Referring Provider Active St art: December 08, 2024 ELVA Euceda Attending Provider Active Star t: December 08, 2024 ELVA Euceda Other Provider Active Start: A ug2024 Utilities Equipment Repairer Relationship Specialty Start Date End Date Abimael Elizabeth DO [facility] [place] [address] PCP - General 09/05/17 Flor Barfield DO [address] [place] [address] Surgeon Urology 12/19/22 Reji Maradiaga MD [address] [place] [address] Surgeon Urology 01/01/24 Utilities Equipment Repairer Relationship Specialty Start Date End Date Abimael Elizabeth DO [address] [place] [phone] PCP - General 09/05/17 Flor Barfield DO [address] [place], [place] [phone] Surgeon Urology 12/19/22 Reji Maradiaga MD [address] [place] [address] Surgeon Urology 01/01/24 Utilities Equipment Repairer Relationship Specialty Start Date End Date Abimael Elizabeth DO [address] [place] [address] PCP - General 09/05/17 Flor Barfield DO [address] [place], [place] [id number] Surgeon Urology 12/19/22 Reji Maradiaga MD [address] [place] [address] Surgeon Urology 01/01/24 Utilities Equipment Repairer Relationship Specialty Start Date End Date Abimael Elizabeth DO [address] [place] [phone] PCP - General 09/05/17 Flor Barfield DO [address] [place] [address] Surgeon Urology 12/19/22 Reji Maradiaga MD [address] [place] [address] Surgeon Urology 01/01/24 Utilities Equipment Repairer Relationship Specialty Start Date End Date Abimael Elizabeth DO [address] [place] [address] PCP - General 09/05/17 Flor Barfield DO [address] [place] [address] Surgeon Urology 12/19/22 Reji Maradiaga MD [address] [place] [address] Surgeon Urology 01/01/24 Utilities Equipment Repairer Relationship Specialty Start Date End Date Abimael Elizabeth DO [address] [place] [address] PCP - General 09/05/17 Flor Barfield DO [address] [place] [address] Surgeon Urology 12/19/22 Reji Maradiaga MD [address] [place] [phone] Surgeon Urology 01/01/24 Team Status: Active Member Role/Relationship Status Dates Dr. Abimael Elizabeth DO Primary care physician Active Team Status: Inactive Member Role/Relationship Status Dates Dr. Abimael Elizabeth DO Primary care physician Active Start: October 05, 2024 End: October 10, 2024 Chacha Dunham FINANCIAL PLANNING CONSULTANT, FINANCIAL PLANNING CONSULTANT-C Attending physician Active Start: October 05, 2024 End: October 10, 2024 Flor FINANCIAL PLANNING CONSULTANT, [place] Referring Provider Active St art: October 05, 2024 End: October 10, 2024 Team Status: Active Member Role/Relationship Status Dates Dr. Abimael Elizabeth DO Primary care physician Active Start: October 05, 2024 Chacha Dunham FINANCIAL PLANNING CONSULTANT, FINANCIAL PLANNING CONSULTANT-C Attending physician Active Start: October 05, 2024 Chacha Dunham FINANCIAL PLANNING CONSULTANT, FINANCIAL PLANNING CONSULTANT-C Nurse Practitioner Active Start: October 05, 2024 Flor FINANCIAL PLANNING CONSULTANT, [place] Referring Provider Active St art: October 05, 2024 Team Status: Active Member Role/Relationship Status Dates Dr. Abimael Elizabeth DO Primary care physician Active Start: October 12, 2024 Chacha Dunham FINANCIAL PLANNING CONSULTANT, FINANCIAL PLANNING CONSULTANT-C Attending physician Active Start: October 12, 2024 Chacha Dunham FINANCIAL PLANNING CONSULTANT, FINANCIAL PLANNING CONSULTANT-C Nurse Practitioner Active Start: October 12, 2024 Flor FINANCIAL PLANNING CONSULTANT, [place] Referring Provider Active St art: October 12, 2024 Team Status: Active Member Role/Relationship Status Dates Dr. Abimael Elizabeth DO Primary care physician Active Start: October 26, 2024 Chacha Dunham FINANCIAL PLANNING CONSULTANT, FINANCIAL PLANNING CONSULTANT-C Attending physician Active Start: October 26, 2024 Chacha Dunham FINANCIAL PLANNING CONSULTANT, FINANCIAL PLANNING CONSULTANT-C Nurse Practitioner Active Start: October 26, 2024 Flor FINANCIAL PLANNING CONSULTANT, [place] Referring Provider Active St art: October 26, 2024 Team Status: Active Member Role/Relationship Status Dates Dr. Abimael Elizabeth DO Primary care physician Active Start: November 02, 2024 Chacha Dunham FINANCIAL PLANNING CONSULTANT, FINANCIAL PLANNING CONSULTANT-C Attending physician Active Start: November 02, 2024 Chacha Dunham FINANCIAL PLANNING CONSULTANT, FINANCIAL PLANNING CONSULTANT-C Nurse Practitioner Active Start: November 02, 2024 Flor FINANCIAL PLANNING CONSULTANT, [place] Referring Provider Active St art: November 02, 2024 Team Status: Inactive Member Role/Relationship Status Dates Dr. Abimael Elizabeth DO Primary care physician Active Start: November 09, 2024 End: November 10, 2024 Chacha Dunham NP, FINANCIAL PLANNING CONSULTANT-C Attending physician Active Start: November 09, 2024 End: November 10, 2024 Flor FINANCIAL PLANNING CONSULTANT, [place] Referring Provider Active St art: November 09, 2024 End: November 10, 2024 Team Status: Active Member Role/Relationship Status Dates Dr. Abimael Elizabeth DO Primary care physician Active Start: November 09, 2024 Chacha Dunham FINANCIAL PLANNING CONSULTANT, FINANCIAL PLANNING CONSULTANT-C Attending physician Active Start: November 09, 2024 Chacha Dunham FINANCIAL PLANNING CONSULTANT, FINANCIAL PLANNING CONSULTANT-C Nurse Practitioner Active Start: November 09, 2024 Flor FINANCIAL PLANNING CONSULTANT, [place] Referring Provider Active St art: November 09, 2024 Team Status: Active Member Role/Relationship Status Dates Dr. Abimael Elizabeth DO Primary care physician Active Start: November 23, 2024 Chacha Dunham FINANCIAL PLANNING CONSULTANT, FINANCIAL PLANNING CONSULTANT-C Attending physician Active Start: November 23, 2024 Chacha Dunham FINANCIAL PLANNING CONSULTANT, FINANCIAL PLANNING CONSULTANT-C Nurse Practitioner Active Start: November 23, 2024 Flor FINANCIAL PLANNING CONSULTANT, [place] Referring Provider Active St art: November 23, 2024 Team Status: Active Member Role/Relationship Status Dates Dr. Abimael Elizabeth DO Primary care physician Active Start: December 01, 2024 Chacha Dunham FINANCIAL PLANNING CONSULTANT, FINANCIAL PLANNING CONSULTANT-C Nurse Practitioner Active Start: December 01, 2024 Flor FINANCIAL PLANNING CONSULTANT, [place] Referring Provider Active St art: December 01, 2024 ELVA Euceda Attending physician Active Sta rt: December 01, 2024 Team Status: Inactive Member Role/Relationship Status Dates Dr. Abimael Elizabeth DO Primary care physician Active Start: December 08, 2024 End: December 11, 2024 Flor FINANCIAL PLANNING CONSULTANT, [place] Referring Provider Active St art: December 08, 2024 End: December 11, 2024 ELVA Euceda Attending physician Active Sta rt: December 08, 2024 End: December 11, 2024 Team Status: Active Member Role/Relationship Status Dates Dr. Abimael Elizabeth DO Primary care physician Active Start: December 08, 2024 Flor FINANCIAL PLANNING CONSULTANT, [place] Referring Provider Active St art: December 08, 2024 ELVA Euceda Attending physician Active Sta rt: December 08, 2024 ELVA Euceda Nurse Practitioner Active Star t: December 08, 2024 Team Status: Active Member Role/Relationship Status Dates Dr. Abimael Elizabeth DO Primary care physician Active Start: December 22, 2024 Flor FINANCIAL PLANNING CONSULTANT, [place] Referring Provider Active St art: December 22, 2024 ELVA Euceda Attending physician Active Sta rt: December 22, 2024 ELVA Euceda Nurse Practitioner Active Star t: December 22, 2024 Team Status: Active Member Role/Relationship Status Dates Dr. Abimael Elizabeth DO Primary care physician Active Start: December 29, 2024 Flor SAUNDERS, [place] Referring Provider Active St art: December 29, 2024 ELVA Euceda Attending physician Active Sta rt: December 29, 2024 ELVA Euceda Nurse Practitioner Active Star t: December 29, 2024 Team Status: Inactive Member Role/Relationship Status Dates Dr. Abimael Elizabeth DO Primary care physician Active Start: January 05, 2025 End: January 10, 2025 Flor FINANCIAL PLANNING CONSULTANT, [place] Referring Provider Active St art: January 05, 2025 End: January 10, 2025 ELVA Euceda Attending physician Active Sta rt: January 05, 2025 End: January 10, 2025 Team Status: Active Member Role/Relationship Status Dates Dr. Abimael Elizabeth DO Primary care physician Active Start: January 05, 2025 Flor FINANCIAL PLANNING CONSULTANT, [place] Referring Provider Active St art: January 05, 2025 ELVA Euceda Nurse Practitioner Active Star t: January 05, 2025 Dr. Phuong Ballard MD Attending physician Active Start: January 05, 2025 Team Status: Active Member Role Status Dates NON STAFF Primary Care Provider Active Start: January 14, 2025 Roverto Wood DO Emergency Provider Active St art: January 14, 2025 Augusto Duque MD Admit Provider Active Start: Jan Augusto Duque MD Attending Provider Active Start: January 14, 2025 Utilities Equipment Repairer Relationship Specialty Start Date End Date Abimael Elizabeth DO [address] [place] [phone] PCP - General 09/05/17 Flor Barfield DO [address] [place] [address] Surgeon Urology 12/19/22 Reji Maradiaga MD [address] [place] [address] Surgeon Urology 01/01/24 Utilities Equipment Repairer Relationship Specialty Start Date End Date Abimael Elizabeth DO [address] [place] [phone] PCP - General 09/05/17 Flor Barfield DO [address] [place] [address] Surgeon Urology 12/19/22 Reji Maradiaga MD [address] [place] [phone] Surgeon Urology 01/01/24 Utilities Equipment Repairer Relationship Specialty Start Date End Date Abimael Elizabeth DO [address] [place] [phone] PCP - General 09/05/17 Flor Barfield DO [address] [place] [address] Surgeon Urology 12/19/22 Reji Maradiaga MD [address] [place] [address] Surgeon Urology 01/01/24 Utilities Equipment Repairer Relationship Specialty Start Date End Date Abimael Elizabeth DO [address] [place] [phone] PCP - General 09/05/17 Flor Barfield DO [address] [place] [address] Surgeon Urology 12/19/22 Reji Maradiaga MD [address] [place] [address] Surgeon Urology 01/01/24 Utilities Equipment Repairer Relationship Specialty Start Date End Date Abimael Elizabeth DO [address] [place] [phone] PCP - General 09/05/17 Flor Barfield DO [address] [place] [address] Surgeon Urology 12/19/22 Re[address] [place] [address] Surgeon Urology 01/01/24 Abimael Moseley MD [address] [place] [address] Surgeon Urology 01/22/25 Utilities Equipment Repairer Relationship Specialty Start Date End Date Abimael Elizabeth DO [address] [place] [phone] PCP - General 09/05/17 Flor Barfield DO [address] [place] [address] Surgeon Urology 12/19/22 Reji Maradiaga MD [address] [place] [phone] Surgeon Urology 01/01/24 Abimael Moseley MD [address] [place] [address] Surgeon Urology 01/22/25 Utilities Equipment Repairer Relationship Specialty Start Date End Date Abimael Elizabeth DO [address] [place] [phone] PCP - General 09/05/17 Flor Barfield DO [address] [place] [address] Surgeon Urology 12/19/22 Reji Maradiaga MD [address] [place] [phone] Surgeon Urology 01/01/24 Abimael Moseley MD [address] [place] [address] Surgeon Urology 01/22/25 Utilities Equipment Repairer Relationship Specialty Start Date End Date Abimael Elizabeth [address] [place] [phone] PCP - General 09/05/17 Flor Barfield DO [address] [place] [address] Surgeon Urology 12/19/22 Reji Maradiaga MD [address] [place] [phone] Surgeon Urology 01/01/24 Abimael Moseley MD [address] [place] [address] Surgeon Urology 01/22/25 Utilities Equipment Repairer Relationship Specialty Start Date End Date Abimael Elizabeth [place] [address] [address] PCP - General 09/05/17 Flor Barfield DO [address] [place], [place] [id number] Surgeon Urology 12/19/22 Reji Maradiaga MD [address] [place] [phone] Surgeon Urology 01/01/24 Abimael Moseley MD [address] [place], [place] [id number] Surgeon Urology 01/22/25 Gio Monge MD [address] [place] [phone] Surgeon Urology 02/05/25 Team Status: Active Member Role/Relationship Status Dates Dr. Abimael Elizabeth DO Primary care physician Active Start: October 12, 2024 Chacha Dunham NP, FINANCIAL PLANNING CONSULTANT-C Attending physician Active Start: October 12, 2024 Chacha Dunham NP, FINANCIAL PLANNING CONSULTANT-C Nurse Practitioner Active Start: October 12, 2024 Susan Ray NP Referring Provider Active St art: October 12, 2024 Team Status: Active Member Role/Relationship Status Dates Dr. Abimael Elizabeth DO Primary care physician Active Start: October 26, 2024 Chacha Dunham NP, FINANCIAL PLANNING CONSULTANT-C Attending physician Active Start: October 26, 2024 Chacha Dunham NP, FINANCIAL PLANNING CONSULTANT-C Nurse Practitioner Active Start: October 26, 2024 Susan Ray NP Referring Provider Active St art: October 26, 2024 Team Status: Active Member Role/Relationship Status Dates Dr. Abimael Elizabeth DO Primary care physician Active Start: November 02, 2024 Chacha Dunham FINANCIAL PLANNING CONSULTANT, FINANCIAL PLANNING CONSULTANT-C Attending physician Active Start: November 02, 2024 Chacha Dunham FINANCIAL PLANNING CONSULTANT, FINANCIAL PLANNING CONSULTANT-C Nurse Practitioner Active Start: November 02, 2024 Flor FINANCIAL PLANNING CONSULTANT, [place] Referring Provider Active St art: November 02, 2024 Team Status: Inactive Member Role/Relationship Status Dates Dr. Abimael Elizabeth DO Primary care physician Active Start: November 09, 2024 End: November 10, 2024 Chacha Dunham FINANCIAL PLANNING CONSULTANT, FINANCIAL PLANNING CONSULTANT-C Attending physician Active Start: November 09, 2024 End: November 10, 2024 Flor FINANCIAL PLANNING CONSULTANT, [place] Referring Provider Active St art: November 09, 2024 End: November 10, 2024 Team Status: Active Member Role/Relationship Status Dates Dr. Abimael Elizabeth DO Primary care physician Active Start: November 09, 2024 Chacha Dunham FINANCIAL PLANNING CONSULTANT, FINANCIAL PLANNING CONSULTANT-C Attending physician Active Start: November 09, 2024 Chacha Dunham FINANCIAL PLANNING CONSULTANT, FINANCIAL PLANNING CONSULTANT-C Nurse Practitioner Active Start: November 09, 2024 Flor FINANCIAL PLANNING CONSULTANT, [place] Referring Provider Active St art: November 09, 2024 Team Status: Active Member Role/Relationship Status Dates Dr. Abimael Elizabeth DO Primary care physician Active Start: November 23, 2024 Chacha Dunham FINANCIAL PLANNING CONSULTANT, FINANCIAL PLANNING CONSULTANT-C Attending physician Active Start: November 23, 2024 Chacha Dunham FINANCIAL PLANNING CONSULTANT, FINANCIAL PLANNING CONSULTANT-C Nurse Practitioner Active Start: November 23, 2024 Flor FINANCIAL PLANNING CONSULTANT, [place] Referring Provider Active St art: November 23, 2024 Team Status: Active Member Role/Relationship Status Dates Dr. Abimael Elizabeth DO Primary care physician Active Start: December 01, 2024 Chacha Dunham FINANCIAL PLANNING CONSULTANT, FINANCIAL PLANNING CONSULTANT-C Nurse Practitioner Active Start: December 01, 2024 Flor FINANCIAL PLANNING CONSULTANT, [place] Referring Provider Active St art: December 01, 2024 ELVA Euceda Attending physician Active Sta rt: December 01, 2024 Team Status: Inactive Member Role/Relationship Status Dates Dr. Abimael Elizabeth DO Primary care physician Active Start: December 08, 2024 End: December 11, 2024 Flor FINANCIAL PLANNING CONSULTANT, [place] Referring Provider Active St art: December 08, 2024 End: December 11, 2024 ELVA Euceda Attending physician Active Sta rt: December 08, 2024 End: December 11, 2024 Team Status: Active Member Role/Relationship Status Dates Dr. Abimael Elizabeth DO Primary care physician Active Start: December 08, 2024 Flor FINANCIAL PLANNING CONSULTANT, [place] Referring Provider Active St art: December 08, 2024 ELVA Euceda Attending physician Active Sta rt: December 08, 2024 ELVA Euceda Nurse Practitioner Active Star t: December 08, 2024 Team Status: Active Member Role/Relationship Status Dates Dr. Abimael Elizabeth DO Primary care physician Active Start: December 22, 2024 Flor FINANCIAL PLANNING CONSULTANT, [place] Referring Provider Active St art: December 22, 2024 ELVA Euceda Attending physician Active Sta rt: December 22, 2024 ELVA Euceda Nurse Practitioner Active Star t: December 22, 2024 Team Status: Active Member Role/Relationship Status Dates Dr. Abimael Elizabeth DO Primary care physician Active Start: December 29, 2024 Flor FINANCIAL PLANNING CONSULTANT, [place] Referring Provider Active St art: December 29, 2024 ELVA Euceda Attending physician Active Sta rt: December 29, 2024 ELVA Euceda Nurse Practitioner Active Star t: December 29, 2024 Team Status: Inactive Member Role/Relationship Status Dates Dr. Abimael Elizabeth DO Primary care physician Active Start: January 05, 2025 End: January 10, 2025 Flor FINANCIAL PLANNING CONSULTANT, [place] Referring Provider Active St art: January 05, 2025 End: January 10, 2025 ELVA Euceda Attending physician Active Sta rt: January 05, 2025 End: January 10, 2025 Team Status: Active Member Role/Relationship Status Dates Dr. Abimael Elizabeth DO Primary care physician Active Start: January 05, 2025 Flor FINANCIAL PLANNING CONSULTANT, [place] Referring Provider Active St art: January 05, 2025 ELVA Euceda Nurse Practitioner Active Star t: January 05, 2025 Dr. Phuong Ballard MD Attending physician Active Start: January 05, 2025 Team Status: Active Member Role/Relationship Status Dates Dr. Abimael Elizabeth DO Primary care physician Active Start: January 12, 2025 Flor FINANCIAL PLANNING CONSULTANT, [place] Referring Provider Active St art: January 12, 2025 ELVA Euceda Attending physician Active Sta rt: January 12, 2025 ELVA Euceda Nurse Practitioner Active Star t: January 12, 2025 Team Status: Active Member Role/Relationship Status Dates Dr. Abimael Elizabeth DO Primary care physician Active Start: January 19, 2025 Flor FINANCIAL PLANNING CONSULTANT, [place] Referring Provider Active St art: January 19, 2025 ELVA Euceda Attending physician Active Sta rt: January 19, 2025 ELVA Euceda Nurse Practitioner Active Star t: January 19, 2025 Team Status: Inactive Member Role/Relationship Status Dates Dr. Abimael Elizabeth DO Primary care physician Active Start: January 26, 2025 End: January 26, 2025 Dr. Abimael Elizabeth DO Referring Provider Active Start: January 26, 2025 End: January 26, 2025 Dr. Kasia Choi MD Attending physician Active Start: January 26, 2025 End: January 26, 2025 Team Status: Active Member Role/Relationship Status Dates Dr. Abimael Elizabeth DO Primary care physician Active Start: January 26, 2025 Dr. Kasia Choi MD Attending physician Active Start: January 26, 2025 Dr. Kasia Choi MD Referring Provider Active Start: January 26, 2025 Team Status: Active Member Role/Relationship Status Dates Dr. Abimael Elizabeth DO Primary care physician Active Start: January 26, 2025 Flor FINANCIAL PLANNING CONSULTANT, [place] Referring Provider Active St art: January 26, 2025 ELVA Euceda Attending physician Active Sta rt: January 26, 2025 Team Status: Active Member Role/Relationship Status Dates Dr. Abimael Elizabeth DO Primary care physician Active Start: January 26, 2025 Flor FINANCIAL PLANNING CONSULTANT, [place] Referring Provider Active St art: January 26, 2025 ELVA Euceda Attending physician Active Sta rt: January 26, 2025 ELVA Euceda Nurse Practitioner Active Star t: January 26, 2025 Utilities Equipment Repairer Relationship Specialty Start Date End Date Abimael Elizabeth DO [address] [place] [phone] PCP - General 09/05/17 Flor Barfield DO [address] [place] [address] Surgeon Urology 12/19/22 Reji Maradiaga MD [address] [place] [phone] Surgeon Urology 01/01/24 Abimael Moseley MD [address] [place] [address] Surgeon Urology 01/22/25 Gio Monge MD [address] [place] [phone] Surgeon Urology 02/05/25 Utilities Equipment Repairer Relationship Specialty Start Date End Date Abimael Elizabeth DO [address] [phone] PCP - General 09/05/17 Flor Barfield DO [address] [place] [address] Surgeon Urology 12/19/22 Reji Maradiaga MD [address] [place] [phone] Surgeon Urology 01/01/24 Abimael Moseley MD [address] [place] [address] Surgeon Urology 01/22/25 Gio Monge MD [address] [place] [address] Surgeon Urology 02/05/25 Utilities Equipment Repairer Relationship Specialty Start Date End Date Abimael Elizabeth DO [address] [place] [phone] PCP - General 09/05/17 Flor Barfield DO [address] [place], [place] [phone] Surgeon Urology 12/19/22 Reji Maradiaga MD [address] [place] [phone] Surgeon Urology 01/01/24 Abimael Moseley MD [address] [place], [place] [id number] Surgeon Urology 01/22/25 Gio Monge MD [address] [place] [phone] Surgeon Urology 02/05/25 Goals (unrecognized section and content) Type Treatment Intervention Code Status: Full Code Scheduled Active and Recently Administ ered Medications (unrecognized section and content) Medication Order 01/15/2025 01/16/2025 01/17/2025 trospium (Sanctura) tablet 20 mg 20 mg, Oral, Daily, First dose on Thu01/17/25 at 1700, Substituted for oxybutynin (DITROPAN); fesoterodine (TOVIAZ); darifenacin (ENABLEX); solifenacin (VESICARE); tolterodine IR (DETROL); tolterodine ER (DETROL LA). Give one hour before meals. 1659 (Given - Provid er: Deanne Hall RN) Scheduled Medication Order 01/22/2025 01/23/2025 01/24/2025 aspirin EC tablet 81 mg 81 mg, Oral, Daily, First dose on 01/22/25 at 0800, Do not crush, chew, or split. 0841 (Given - Provider: Verena العلي) 0841 (Given - Provider: Verena العلي) 0815 (Given - Provider: Chandrakant Winn, KARY) cefTRIAXone (Rocephin) 1,000 mg in sodium chloride 0.9 % 50 mL IVPB Mini-Bag Plus (COMPLETED) 1,000 mg, IntraVENous, at 100 mL/hr, Administer over 30 Minutes, Every 24 hours, First dose on 01/21/25 at 2125, For 3 doses, Mini-Bag Plus bag, Suspected Indication (Select all that apply): Urinary Tract Infection 2049 (New Bag - Provider: Nina Rojas RN)2119 (Stopped - Provider: Nina Rojas RN) 2121 (New Bag - Provider: Danny García RN)2154 (Stopped - Provider: Danny García RN) cholecalciferol (Vitamin D-3) tablet 5,000 Units 5,000 Units, Oral, Daily, First dose on 01/22/25 at 0900 0841 (Given - Provider: Verena العلي) 0841 (Given - Provider: Verena العلي) 0816 (Given - Provider: Chandrakant Winn, KARY) enoxaparin (Lovenox) syringe 40 mg 40 mg, SubCUTAneous, Every 24 hours, First dose (after last reorder) on 01/21/25 at 2315, Indication of Use: Prophylaxis-DVT/PE 2050 (Given - Provider: Nina Rojas RN) 2122 (Not Given - Provider: Danny García RN - Reason: Patient/family refused - Comment: patient states they do not need since they are ambulatory) finasteride (Proscar) tablet 5 mg 5 mg, Oral, Daily, First dose on 01/22/25 at 0900, Women should not handle crushed or broken finasteride tablets when they are or may potentially be , due to potential risk to the fetus. Do not crush, chew, or split. 0843 (Given - Provider: Verena العلي) 0841 (Given - Provider: Verena العلي) 0816 (Given - Provider: Chandrakant Winn RN) lisinopril tablet 20 mg 20 mg, Oral, Daily, First dose on 01/22/25 at 0900 0841 (Given - Provider: Verena العلي) 0841 (Given - Provider: Verena العلي) 0816 (Given - Provider: Chandrakant Winn RN) melatonin tablet 5 mg 5 mg, Oral, Nightly, First dose on 01/22/25 at 0015 0109 (Given - Provider: Nina Rojas RN)2049 (Given - Provider: Nina Rojas RN) 2116 (Given - Provider: Danny García RN) montelukast (Singulair) tablet 10 mg 10 mg, Oral, Nightly, First dose on 01/22/25 at 2300 2349 (Given - Provider: Nina Rojas RN) 2117 (Given - Provider: Danny García RN) pantoprazole (ProtoNix) EC tablet 40 mg 40 mg, Oral, Daily before breakfast, First dose on 01/22/25 at 0600, Substituted for esomeprazole (Nexium). Do not crush, chew, or split. 0437 (Given - Provider: Nina Rojas RN) 0637 (Given - Provider: Nina Rojas RN) 0816 (Given - Provider: Chandrakant Winn RN) phenazopyridine (Pyridium) tablet 200 mg 200 mg, Oral, 3 times daily, First dose on 01/22/25 at 2300 2349 (Given - Provider: Nina Rojas RN) 0842 (Given - Provider: Verena العلي)1321 (Given - Provider: Petty Epstein RN)2117 (Given - Provider: Danny García RN) 0816 (Given - Provider: Chandrakant Winn, KARY)1356 (Not Given - Provider: Chandrakant Winn RN - Reason: Order parameters not met) tamsulosin (Flomax) 24 hr capsule 0.8 mg 0.8 mg, Oral, Every 24 hours, First dose on 01/22/25 at 0900, Do not crush, chew, or split. 0842 (Given - Provider: Verena العلي) 0841 (Given - Provider: Verena العلي) 0815 (Given - Provider: Chandrakant Winn, KARY) therapeutic multivitamin-minerals (Theragran-M) tablet 1 tablet, Oral, Daily, First dose on 01/22/25 at 0800 0841 (Given - Provider: Verena العلي) 0841 (Given - Provider: Verena العلي) 0815 (Given - Provider: Chandrakant Winn, KARY) trospium (Sanctura) tablet 20 mg 20 mg, Oral, 2 times daily before meals, First dose on 01/22/25 at 0700, Substituted for oxybutynin (DITROPAN); fesoterodine (TOVIAZ); darifenacin (ENABLEX); solifenacin (VESICARE); tolterodine IR (DETROL); tolterodine ER (DETROL LA). Give one hour before meals. 0437 (Given - Provider: Nina Rojas RN)1635 (Given - Provider: Verena العلي) 0637 (Given - Provider: Nina Rojas RN)1532 (Given - Provider: Verena العلي) 0816 (Given - Provider: Chandrakant Winn, KARY)1548 (Given - Provider: Chandrakant Winn RN) PRN Medication Order 01/22/2025 01/23/2025 01/24/2025 acetaminophen (Tylenol) suppository 650 mg(Linked Group 1) 650 mg, Rectal, Every 6 hours PRN, fever, For temp greater than 100.4 F (38 C), Starting on 01/21/25 at 2256, Administer if oral route cannot be used. Maximum dose of acetaminophen is 4000 mg from all sources in 24 hours. 0120 (See Alternative - Provider: Nina Rojas RN) acetaminophen (Tylenol) tablet 650 mg(Linked Group 1) 650 mg, Oral, Every 6 hours PRN, mild pain (1-3), fever, For temp greater than 100.4 F (38 C), Starting on 10/11/25 at 2256, Maximum dose of acetaminophen is 4000 mg from all sources in 24 hours. 0120 (Given - Provider: Nina Rojas, KARY) HYDROcodone-acetaminophe n (Monette) 5-325 MG per tablet 1 tablet 1 tablet, Oral, Every 6 hours PRN, severe pain (7-10), Starting on 01/22/25 at 0943, Maximum dose of acetaminophen is 4000 mg from all sources in 24 hours. 1154 (Given - Provider: Petty Epstein, RN)1858 (Given - Provider: Petty Epstein, RN) 2117 (Given - Provider: Danny García, RN) 0318 (Given - Provider: Danny García RN)1043 (Given - Provider: Chandrakant Winn RN) naloxone (Narcan) injection 0.4 mg 0.4 mg, IntraVENous, Every 5 min PRN, opioid reversal, respiratory depression, Starting on 01/22/25 at 0945, +++ For RR <10, pinpoint pupils, over sedation for opioid reversal - MUST notify automation tester provider immediately after first dose, may give IM or SQ if no IV access +++ naproxen (Naprosyn) tablet 500 mg 500 mg, Oral, Every 12 hours PRN, moderate pain (4-6), Starting on 01/22/25 at 0004 ondansetron (Zofran) injection 4 mg(Linked Group 2) 4 mg, IntraVENous, Every 6 hours PRN, nausea, vomiting, Starting on 01/21/25 at 2256, 1st Line. Give IV if patient is unable to take orally. If inadequate response within 60 minutes, proceed to next-line agent or contact provider if no further options ordered. ondansetron ODT (Zofran-ODT) disintegrating tablet 4 mg(Linked Group 2) 4 mg, Oral, Every 8 hours PRN, nausea, vomiting, Starting on 01/21/25 at 2256, 1st Line. If inadequate response within 60 minutes, proceed to next-line agent or contact provider if no further options ordered. Patient should allow tablet to dissolve on tongue. Do not remove from blister pack until just before administering. polyethylene glycol (PEG) 3350 (Miralax) packet 17 g 17 g, Oral, Daily PRN, constipation, Starting on 01/21/25 at 2256, 1st line for treatment of constipation - give scheduled if no bowel movement in past 24 hours. 2048 (Given - Provider: Nina Rojas RN) Linked Groups Order Group 1: acetaminophen (Tylenol) tablet 650 mgJump to med 650 mg, Oral, Every 6 hours PRN, mild pain (1-3), fever, For temp greater than 100.4 F (38 C), Starting on 01/21/25 at 2256, Maximum dose of acetaminophen is 4000 mg from all sources in 24 hours. Or acetaminophen (Tylenol) suppository 650 mgJump to med 650 mg, Rectal, Every 6 hours PRN, fever, For temp greater than 100.4 F (38 C), Starting on 01/21/25 at 2256, Administer if oral route cannot be used. Maximum dose of acetaminophen is 4000 mg from all sources in 24 hours. Group 2: ondansetron ODT (Zofran-ODT) disintegrating tablet 4 mgJump to med 4 mg, Oral, Every 8 hours PRN, nausea, vomiting, Starting on 01/21/25 at 2256, 1st Line. If inadequate response within 60 minutes, proceed to next-line agent or contact provider if no further options ordered. Patient should allow tablet to dissolve on tongue. Do not remove from blister pack until just before administering. Or ondansetron (Zofran) injection 4 mgJump to med 4 mg, IntraVENous, Every 6 hours PRN, nausea, vomiting, Starting on 01/21/25 at 2256, 1st Line. Give IV if patient is unable to take orally. If inadequate response within 60 minutes, proceed to next-line agent or contact provider if no further options ordered. FOR RECORDS PERTAINING TO PATIENTS WHO ARE OR HAVE BEEN ENROLLED IN A CHEMICAL DEPENDENCY/SUBSTANCEABUSE PROGRAM, SOME INFORMATION MAY BE OMITTED. This clinical summary was aggregated from multiple sources. Caution should be exercised in using it in the provision of clinical care. This summary normalizes information from multiple sources, and as a consequence, information in this document may materially change the coding, format and clinical context of patient data. In addition, data may be omitted in some cases. CLINICAL DECISIONS SHOULD BE BASED ON THE PRIMARY CLINICAL RECORDS. [facility]. provides no warranty or guarantee of the accuracy or completeness of information in this document.
[2025-03-10 13:12] VITALS: BP 166/68; PULSE 63; RESP 18; O2SAT 97; BMI 43.7
[2025-03-10 13:18] VITALS: BP 139/63; PULSE 63
[2025-03-10] MEDS: Nitroglycerin SL (ED/IMG/CATH) 0.4 MG TABLET SL (13:18)
[2025-03-10 13:29] VITALS: BP 139/63; PULSE 63; RESP 18; O2SAT 97
[2025-03-10] MEDS: 0.9% Saline Lock 10 ML Syringe IV (13:33)
--- NOTE | 2025-03-10 16:26 | CCTA.WCONT ---
CCTA w/Cont Coronary Arteries Date of Study:: 03/10/25 Shortness of breath Coronary Calcium Scoring: High-resolution Computed Tomographic imaging of the chest was performed on [03/10/2025], with particular attention paid to the coronary arteries. Intravenous contrast agent was administered per protocol and images reconstructed and displayed. LEFT MAIN CORONARY ARTERY: Arises from the right coronary cusp and noted to be normal bifurcates the left anterior descending artery and left circumflex artery [] LEFT ANTERIOR DESCENDING CORONARY ARTERY: Arises from the left main coronary artery with no significant atherosclerotic plaquing noted. There is minimal stenosis present throughout the vessel. [] LEFT CIRCUMFLEX CORONARY ARTERY: There is insignificant atherosclerotic plaquing noted with no obvious stenosis present. [] RIGHT CORONARY ARTERY: Dominant right coronary artery with no significant atherosclerotic plaque or stenosis present. [] THORACIC AORTA: [] PULMONARY ARTERY: [] LEFT ATRIUM/APPENDAGE: [] MITRAL VALVE: [] AORTIC VALVE: [] LEFT VENTRICLE: [] CORONARY CALCIUM SCORE: [] Calcium Scoring Interpretation: Different methods to categorize the overall amount of coronary plaque. Overall amount CAC SIS Visual of coronary plaque P1 Mild -100 <2 1-2 vessels with mild amount of plaque P2 Moderate 101-300 3-4 1-2 vessels with moderate amount, 3 vessels with mild amount of plaque P3 Severe 301-999 5-7 3 vessels with moderate amount, 1 vessel with severe amount of plaque P4 Extensive >1000 >8 2-3 vessels with severe amount of plaque Conclusion: CT angiogram with no significant atherosclerotic plaquing or stenosis present.
== END | disposition home or self-care (01) ==
LOC: CT 12:51
PROVIDERS: PCP Family Medicine; Referring Provider Internal Medicine Cardiovascular Disease; Visit Provider Internal Medicine Cardiovascular Disease
DX: I48.91 Unspecified atrial fibrillation (principal); I47.29 Other ventricular tachycardia; E66.01 Morbid (severe) obesity due to excess calories; Z68.41 Body mass index [BMI] 40.0-44.9, adult; G47.30 Sleep apnea, unspecified; I10 Essential (primary) hypertension; R00.2 Palpitations
CPT/HCPCS: 75574; 76380; Q9967; A4216

== ENCOUNTER 2025-04-10 19:33 | Emergency (ER) | payer MEDICARE, OTHER, SELFPAY ==
[2025-04-10] VITALS (7 sets, daily range): BP systolic 134–146; BP diastolic 69–96; PULSE 75–88; RESP 17–23; TEMP 36; O2SAT 99–100; BMI 46.3
--- NOTE | 2025-04-10 20:00 | ED.VIS.CHEST ---
HPI History of Present Illness Chief Complaint: Palpitations [facility] Medical History (Updated 04/10/25 @ 22:[address] 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 Bilateral lower extremity edema Home Medications ?Medication ?Instructions ?Recorded ?Last Taken ?Type Lactobacillus 1 ea PO DAILY 11/26/17 Unknown History 41-B.animalis,bifid-FOS 111 mg (25 billion cell) capsule (Ultimate Probiotic-10) omega-3 1,050 aw-sul-[id number]-dpa-fish 1 ea PO DAILY 11/26/17 Unknown History oil 1,200 mg capsule ([place]-3 2100) vitamin B comp and C no.3 15 mg-10 1 ea PO DAILY 11/26/17 Unknown History mg-50 mg-5 mg-300 mg capsule (B Complex Plus Vitamin C) antiarthritic combination no.2 900 mg PO 01/16/25 Unknown History mg tablet (glucosamine-chondroitin) aspirin 81 mg tablet 81 mg PO QDAY 01/16/25 Unknown History azelastine 137 mcg-fluticasone 50 1 - 2 spray intranasal BID 01/16/25 Unknown History mcg/spray nasal spray cholecalciferol (vitamin D3) 50 50 mcg PO .COMPLEX 01/16/25 Unknown History mcg (2,000 unit) capsule loratadine 10 mg tablet (Allergy 10 mg PO DAILY PRN 01/16/25 Unknown History Relief (loratadine)) melatonin 5 mg capsule 5 mg PO QHS PRN 01/16/25 Unknown History montelukast 10 mg tablet 10 mg PO DAILY 01/16/25 Unknown History multivitamin 1 tab PO QDAY 01/16/25 Unknown History naproxen 500 mg tablet 500 mg PO Q12H PRN 01/16/25 Unknown History pantoprazole 40 mg tablet,delayed 40 mg PO DAILY 01/16/25 Unknown History release sildenafil 100 mg tablet 50 - 100 mg PO DAILY PRN 01/16/25 Unknown History tamsulosin 0.4 mg capsule 0.8 mg PO DAILY 01/16/25 Unknown History tumeric PO DAILY 01/16/25 Unknown History finasteride 5 mg tablet 5 mg PO QDAY 01/26/25 Unknown History hydrocodone-acetaminophen 5-325mg 1 tab PO Q6H PRN 01/26/25 Unknown History 5mg-325mg phenazopyridine 200 mg tablet 200 mg PO TID 01/26/25 Unknown History solifenacin 10 mg tablet 10 mg PO QDAY 01/26/25 Unknown History lisinopril 10 mg tablet 10 mg PO QDAY #30 tabs 02/20/25 Unknown Rx metoprolol tartrate 25 mg tablet 25 mg PO BID #60 tabs 02/20/25 Unknown Rx apixaban 5 mg tablet (Eliquis) 5 mg PO BID 30 days #60 tabs 04/10/25 Unknown Rx Allergy/AdvReac Type Severity Reaction Status Date / Time Environmental Allergies: Allergy Unknown unknown Verified 04/10/25 19:33 Uncoded (dust) mold Allergy Unknown unknown Verified 04/10/25 19:33 ragweed pollen Allergy Unknown unknown Verified 04/10/25 19:33 Family History Father Diabetes Arthritis Mother Arthritis Heart disease [place] Grandfather Heart disease rheumatic heart disease Surgical History History of esophagogastroduodenoscopy (EGD) H/O prostate biopsy Status post excision of lipoma H/O removal of cyst H/O wisdom tooth extraction History of cholecystectomy History of surgery History of colonoscopy Social History Smoking Status: Former smoker alcohol intake: current alcohol intake frequency: a few times a week Alcohol type: beer, wine and hard liquor substance use type: does not use caffeine: Yes eating out: 4 or more times/week EXAM Physical Exam Const Vital Signs: 04/10/25 19:34 04/10/25 19:59 04/10/25 20:33 Temperature 96.8 F L Temperature Source Oral Pulse Rate 77 78 Respiratory Rate 18 23 H Respiratory Effort Non-Labored Blood Pressure 138/95 H 134/69 H Blood Pressure Mean 109 90 Pulse Ox 99 100 Oxygen Delivery Method Room Air Room Air 04/10/25 20:40 04/10/25 20:45 04/10/25 21:00 Temperature Temperature Source Pulse Rate 85 83 88 Respiratory Rate 21 H 17 19 H Respiratory Effort Blood Pressure 140/96 H Blood Pressure Mean 110 Pulse Ox 100 100 100 Oxygen Delivery Method 04/10/25 22:00 04/10/25 22:15 Temperature 96.8 F L Temperature Source Pulse Rate 75 75 Respiratory Rate 19 H Respiratory Effort Blood Pressure 146/93 H 146/93 H Blood Pressure Mean 110 110 Pulse Ox 100 100 Oxygen Delivery Method Room Air [facility] Narrative Medical decision making narrative: HISTORY OF PRESENT ILLNESS: Chief complaint: Palpitations 64-year-old male history of sleep apnea, hypertension and erectile dysfunction presents with palpitations on and off throughout the day. History of A-fib but not on anticoagulation also history of hypertension, obesity, sleep apnea he states he has noticed palpitation over the last 3 days. Notes he had A-fib in the past provoked by stress from the passing of his father. Denies chest pain. Denies cough but does note scratchiness in his throat and feeling like he may have a head cold. Patient does note diarrhea that started today. Notes recent travel. Denies leg swelling. Denies any other PE risk factors. The patient denies recent surgery in the last 4 weeks or immobilization in the last 3 days, denies previous diagnosis of DVT or PE, hemoptysis, unilateral leg swelling or malignancy with treatment the last 6 months or palliative. No estrogen use noted. He is not currently on anticoagulation REVIEW OF SYSTEMS: Pertinent positives: Palpitations Pertinent negatives: As per HPI PHYSICAL EXAM: Nursing triage notes reviewed, Vital signs reviewed Constitutional: [facility] HENT: MMM Eyes: Pupils equal round and reactive to light, Extraocular muscles intact Neck: No stridor, no JVD, full neck ROM Lungs: Clear to auscultation, No wheezing or rales. No increased work of breathing, no conversational dyspnea, no accessory muscle use, no nasal flaring. No respiratory distress noted Heart: Regular rate and rhythm, No murmurs, No rubs and No gallops, 2+ distal pulses (radial, femoral, posterior tibial) in all extremities Abdomen: Soft, there is no tenderness, rigidity, rebound or guarding, no obvious peritoneal signs, no palpable pulsatile abdominal masses, no auscultated abdominal bruit : No CVAT Extremities: No edema Neuro: No new focal neurological deficits, cranial nerves II through XII intact, 5/5 strength in all present extremities. Intact sensation to light touch in all present extremities, 2+ reflexes bilateral patella tendons. Skin: No rash or lesions noted MEDICAL DECISION MAKING: Chief Complaint: please see [facility] External records reviewed: Reviewed prior echocardiogram from 2024 showed ejection fraction 65% Factors affecting care: As per HPI Social determinants of health: Denies illicit drug use History obtained from others: none Consults: Cardiology Dr. Mcitnosh recommended starting anticoagulation MDM Narrative: Patient was initially hemodynamically stable, afebrile and nontoxic-appearing. Exam without focal cardiopulmonary maladies. No stigmata of CHF. I considered the following differential diagnosis: Arrhythmia, anemia, electro disturbance, pneumonia, viral illness I obtained a broad lab and imaging work to further determine if the patient was suffering from a life-threatening etiology. ALL IMAGES (IF OBTAINED) HAVE BEEN PERSONALLY REVIEWED AND INTERPRETED BY MYSELF. EKG with rate controlled A-fib rate of 78, normal axis, normal intervals, no obvious STEMI. Rate was controlled. No need for rate control at this time. Will continue to monitor. CBC with no leukocytosis, noted mild anemia but no thrombocytopenia BMP without significant electrolyte abnormalities, baseline renal function High-sensitivity troponin is negative, no evidence of myocardial ischemia BNP borderline elevated consistent with increased ventricular stress likely from A-fib. I have personally reviewed the patient's chest x-ray. Chest x-ray is unremarkable for pulmonary edema, pneumothorax, pneumonia or focal cardiopulmonary abnormality. COVID/RSV/flu negative The synthesis of the patient's history, physical exam, labs images are consistent with no onset atrial fibrillation exacerbated by COVID-19 infection. I discussed the patient's case with the business development agent on-call. Recommended starting Eliquis. He was given here for home-going. Strict return precautions were discussed. The patient and/or family, caregivers express understanding. The patient and/or family, caregivers agrees with the plan. Shared decision making: I will have a discussion with the patient and or visitors regarding risk/benefits of further testing or admission. They will be made aware of of the risk/benefits inherent in this decision they will be given the opportunity to voice understanding. Total critical care time today provided was at least 0 minutes. This excludes separately billable procedures. Critical care time (if documented) is secondary to the patient having high probability of clinically significant/life threatening deterioration in the patient's condition which required my urgent intervention. Impression: 1. Palpitations 2. New onset A-fib Dispo: Discharge home This note was generated with [employer] dictation software. It may contain incorrect words, spelling, and punctuation that were not noted in review of the chart prior to signing. Lab Data Labs: Laboratory Results - last 24 hr 04/10/25 04/10/25 20:00 22:10 WBC 6.9 RBC 4.51 L Hgb 12.8 L Hct 39.7 L MCV 88.0 MCH 28.4 MCHC 32.2 RDW Std Deviation 42.6 RDW Coeff of [place] 13.2 Plt Count 233 MPV 10.0 Immature Gran % (Auto) 0.400 Neut % (Auto) 57.0 Lymph % (Auto) 32.6 [place] % (Auto) 8.2 Eos % (Auto) 1.2 Baso % (Auto) 0.6 Absolute Neuts (auto) 3.9 Absolute Lymphs (auto) 2.24 Nucleated RBC % 0 Sodium 140 Potassium 4.4 Chloride 108 H Carbon Dioxide 21.3 Anion Gap 11 BUN 25 H Creatinine 1.58 H Estim Creat Clear Calc 67.51 Est GFR (MDRD) Non-Af 48 L BUN/Creatinine Ratio 15.8 Glucose 95 Calcium 9.4 Troponin T High Sens 15 Troponin T Hi Sens 2 Hr 13 NT pro BNP II 1118 H Radiography Diagnostic Testing: Clinical Impression(s) from Imaging Studies Chest X-Ray 04/10/25 20:20 IMPRESSION: No Acute Findings. Reading Location: [facility] Discharge Plan Triage Chief Complaint: Palpitations ED Provider: Vance Hall Dx/Rx/DC Orders Clinical Impression: Atrial fibrillation Instructions: A-Fib Prescriptions: New Eliquis 5 mg tablet 5 mg PO BID 30 Days Qty: 60 0RF No Action aspirin 81 mg tablet 81 mg PO QDAY azelastine-fluticasone 137-50 mcg/spray spray,non-aerosol 1 - 2 spray intranasal BID multivitamin Tablet 1 tab PO QDAY glucosamine-chondroitin 900 mg tablet PO pantoprazole 40 mg tablet,delayed release (DR/EC) 40 mg PO DAILY naproxen 500 mg tablet 500 mg PO Q12H PRN sildenafil 100 mg tablet 50 - 100 mg PO DAILY PRN cholecalciferol (vitamin D3) 50 mcg (2,000 unit) capsule 50 mcg PO .COMPLEX Rx Instructions: 50 mcg orally; take one capsule daily in summer, 3 caps daily in winter tumeric 500 mg PO DAILY hydrocodone-acetaminophen 5-325 mg tablet 1 tab PO Q6H PRN phenazopyridine 200 mg tablet 200 mg PO TID finasteride 5 mg tablet 5 mg PO QDAY solifenacin 10 mg tablet 10 mg PO QDAY B Complex Plus Vitamin C 1 EACH capsule 1 ea PO DAILY [place]-3 2100 1 EACH capsule 1 ea PO DAILY Ultimate Probiotic-10 1 EACH capsule 1 ea PO DAILY loratadine [Allergy Relief (loratadine)] 10 mg tablet 10 mg PO DAILY PRN montelukast 10 mg tablet 10 mg PO DAILY tamsulosin 0.4 mg capsule 0.8 mg PO DAILY melatonin 5 mg capsule 5 mg PO QHS PRN lisinopril 10 mg tablet 10 mg PO QDAY Qty: 30 11RF metoprolol tartrate 25 mg tablet 25 mg PO BID Qty: 60 11RF Primary Care Provider: Abimael Metcalf Referrals: Kasia Choi MD [Med Staff - Active Staff, Cardiology] Activity Restrictions/Additional Instructions: Thank you for trusting us with your care today! Your labs images are consistent with atrial fibrillation. There is no sign of heart damage, heart failure or significant electrolyte abnormalities. Her A-fib may have been exacerbated by her COVID infection that was also revealed on your evaluation today. Please continue to take metoprolol as prescribed. Please begin taking Eliquis as prescribed. Please return to the emergency department if your symptoms change or worsen. Please follow with Cardiology for further outpatient evaluation and management. Print Language: Italian Disposition Disposition: Home, Self Care Discharge Date/Time: 04/10/25 22:24
--- NOTE | 2025-04-10 20:15 | EKG12_ITS ---
Test Reason : PALPS Blood Pressure : */* mmHG Vent. Rate : 78 BPM Atrial Rate : 312 BPM P-R Int : * ms QRS Dur : 82 ms QT Int : 394 ms P-R-T Axes : 268 46 56 degrees QTcB Int : 449 ms Atrial flutter with variable A-V block Abnormal ECG Confirmed by Aj Mcintosh ([id number]), assistant editor TIM HAIR ([id number]) on 04/14/2025 6:43:53 AM Referred By: MICHAEL Confirmed By: Aj Mcintosh
--- NOTE | 2025-04-10 20:20 | RAD_ITS ---
PROCEDURE: CHEST 1 VIEW (PORTABLE) 04/10/2025 REASON FOR EXAM: PALPITATIONS TECHNIQUE: Frontal view of the chest. COMPARISON: CT 03/10/2025 FINDINGS: Hardware: None Heart: The heart size is normal. Lungs: The lungs are clear. No pneumothorax or pleural effusion. Bones: The bones are unremarkable. RAD/Chest 1 View (Portable) IMPRESSION: No Acute Findings. Reading Location: [facility]
--- OUTSIDE RECORDS SUMMARY | 2025-04-10 20:20 | XMS RPT_ITS | CCD ---
Author Organization [facility] Providers Care Hearing Aid Technician Name Role Phone ALEXANDRA ROBLES Unavailable Unavailable [...] Abimael Elizabeth DO Primary Care Physician Roly DIRECTOR CLINICAL APPLICATIONS-C, Chacha Attending Physician Roly DIRECTOR CLINICAL APPLICATIONS-C, Chacha Nurse Practitioner Coco STEVENSON, Yola Attending Physician Coco STEVENSON, Yola Nurse Practitioner Nellie ZAVALETA, Dr. Baca Attending Physician NON STAFF Primary Care Provider Unavailabl e Israel DO, Roverto Baptiste Emergency Provider Dunia ZAVALETA, Augusto Admit Provider Augusto Duque MD Attending Provider Hitesh Nava MD Other Provider Kamaljit Bach MD Attending Provider [phone] Abimael Moseley MD Unavailable Hitesh Nava Consulting Unavailable Augusto Duque Admitting Unavailable Kamaljit Bach Attending Unavailable NON STAFF Primary Care Unavailable Gio Monge MD Unavailable Dr. Abimael Elizabeth DO Primary Care Physician Roly DIRECTOR CLINICAL APPLICATIONS-C, Chacha Attending Physician Roly DIRECTOR CLINICAL APPLICATIONS-C, Chacha Nurse Practitioner Flor Davis NP Referring [...] Attending Unavailable REJI MARADIAGA Referring Unavailable GLENN, ABIMAEL Primary Care Unavailable MCCRORKTRESA Referring Unavailable TRESA JORDAN Attending Unavailable GLENN, ABIMAEL Primary Care Unavailable GLENN, ABIMAEL Primary Care Unavailable YBRON YIN Attending Unavailable EMIGDIO MORENO Attending Unavailable [...] Referring Unavailable HERNANDEZ, SENAIT Referring Unavailable Dunham DIRECTOR CLINICAL APPLICATIONS, Chacha Consulting Unavailable Glenn, Abimael D Primary [...] Referring Unavailable Sepulveda, Yola Attending Unavailable Dunham DIRECTOR CLINICAL APPLICATIONS, Chacha Attending Unavailable Glenn, Abimael D Primary Care Unavailable HERNANDEZ, SENAIT Referring Unavailable HERNANDEZ, SENAIT Referring Unavailable Dunham DIRECTOR CLINICAL APPLICATIONS, Chacha Attending Unavailable Glenn, Abimael D Primary Care Unavailable HERNANDEZ, SENAIT Referring Unavailable Glenn, Abimael D Primary Care Unavailable Sepulveda, Yola Attending Unavailable Jimbo, Kasia Referring Unavailable Jimbo, Kasia Attending Unavailable Glenn, Abimael D Primary Care Unavailable Jimbo, Kasia Referring Unavailable Jimbo, Kasia Attending Unavailable Glenn, Abimael D Primary Care Unavailable HERNANDEZ, SENAIT Referring Unavailable Gelnn, Abimael D Primary Care Unavailable Sepulveda, Yola [...] ON FILE] Propensity to adverse reactions (disorder) [facility] 2 Repository (20 sources) House dust mite Propensity to adverse reactions 5 Unknown [facility] (12 sources) Mold Extract Drug Allergy 5 unknown [facility] (2 sources) Ragweed pollen; Translations: [ragweed pollen] Allergy to substance 5 unknown [facility] (2 sources) Environmental Allergies: Uncoded; Translations: [Environmental Allergies: Uncoded] Allergy to substance 5 unknown [facility] (1 source) Mold Extract Drug Allergy 5 [facility] Repository Medications Current Medications Medication Drug Class(es) [...] Active Multivitamin tablet (1 source) Start: 01-16-2025 [place]-3 Fatty Acids (FISH OIL) 1200 MG CAPS (5 sources) take 1 capsule by mouth once daily before breakfast [place]-3 Fatty Acids (FISH OIL) 1200 MG CAPS Take 1,200 mg by mouth every morning (before breakfast) 0 Active take 1 capsule by mouth once alexa ly [place]-3 Fatty Acids (FISH OIL) 1200 MG CAPS Take 1,200 mg by mouth daily 0 Active Xpure-3-Jco-Dpc-Wzy-Swgr Oil ([place]-3 2099 Softgel) 1 EACH capsule (7 sources) Start: 11-26-2017 take 3 capsules by mouth once daily Start: 11-26-2017 take 3 capsules by out once daily Bvhde-6-Ntj-Xim-Cug-Ebbn Oil ([place]-3 2100 Softgel) 1 EACH capsule Active 1 NMA PO DAILY November 26, 2017 12:00am Start: 11-26-2017 take 3 capsules by m out once daily Ibpub-1-Zdx-Fnr-Dsi-Uuwx Oil ([place]-3 2100 Softgel) 1 EACH capsule Active 1 [...] by mouth daily 0 Active bacillus coagulans [id number] unt / inulin 250 mg oral capsule [...] 06/05/2021 06/15/2023 Discontinued (Therapy completed) bifidobacterium animalis [id number] unt / lactobacillus acidophilus [id number] unt oral capsule (20 sources) End: 01-21-2025 [...] 0900 Start: 01-16-2025 take 1 capsule by mi ut once daily, then take 3 capsules by mouth once daily Start: 11-26-2017 End: 01-16-2025 take 1 capsule by mouth once daily Cholecalciferol (Vitamin D3) (Vitamin D3) 1,000 UNIT capsule Discontinued 1000 U PO DAILY November 26, 2017 12:00am January 16, 2025 11:30am cholecalciferol (Vitamin D-3) 50 MCG (1999 UT) capsule Take 5,000 Units by mouth. Active take 1 capsule by [facility] once daily before breakfast Cholecalciferol (VITAMIN [...] meals) 0 Active omega-3 acid ethyl esters (retirement) 1000 mg oral capsule (20 sources) End: 01-24-2025 omega-3 acid ethyl esters (Lovaza) 1 g capsule 2 tablets Every 24 hours. 01/24/2025 Discontinued (Stop taking at discharge) take 1 capsule by mouth once alexa ly [place]-3 Fatty Acids (FISH OIL) 1200 MG CAPS [...] (before breakfast) 0 Active polyethylene glycol 3350 48664 mg powder for oral solution (2 sources) [...] I would notify your urologist in the [place] area immediately of what has occurred. Unclassified (1 source) Please arrange a follow-up appointment with your primary care provider within 7-10 days. Unclassified (1 source) A [facility] screening has identified you as FRAIL [...] Four Ways to Beat the Frailty Risk [email or web address] [email or web address] [email or web address]-jczpgn-lnoc- fsrj-od-whpo-the-fra ilty-risk 01-15-2025 Unclassified (2 sources) Other; Translations: [...] W/ Contraston 02-22-2025 Echo Complete W/ Contrast [facility] [address] [place] [address] Echo Complete W/ Contrast 02/22/25 0803 MR#: [id number] Acct: [id number] Name: STEPHANE TORIBIO Rep #: [id number] : 1960 64 From: Kasia Choi MD Attending Dr: Dr. Kasia Choi MD Status: REG CLI Ordering Dr: Kasia Choi MD Date: 02/22/25 Location: [facility] Sex: M C Admitted: Reason For Study [...] DO Date Dictated: 02/22/25802 Date Transcribed: 02/22/25938 Retail Pharmacy Manager: Signed Concha [facility] Office Visiton 02-10-2025 Follow-up visit [id number] Antoine Toribio 1960 M Date Provider Department Center 02/10/2025 REJI [facility] URO None Family History Problem Relation Age of Onset Arthritis Mother Arthritis Father Hearing loss Father Family Status - Relation Status Age at Mother Alive Father Alive Level of Service:03149 [place] OFFICE/OUTPATIENT ESTABLISHED LOW [facility] 20 MIN Reason for Visit and Comments: Other [0] - Discuss MRI results, catheter pains (sharp) Would like to discuss catheter changing schedule, fears of bleeding if changed Needs script altered for spasms to x2 a day (vesicare) [facility] Progress Noteon 02-10-2025 Progress Note Reji fuentes [...] been made to Dr. Vishnu Monique at [facility] Review of Systems Past Medical History: [...] is not in an institution (hospital or fdc) I will hold off on changing the catheter at this time. We discussed the reasoning behind not keeping the on continuous oral antibiotic therapy. Topical meatal Neosporin is excellent. Continue finasteride and tamsulosin Bladder spasms controlled with solifenacin 10 mg BID. They have appointment to see Dr. Monique at [facility] to discuss HoLEP. I think this is an excellent surgical choice for him, and I have explained to the patient that he is in good hands with Dr. Monique. Reji Maradiaga MD 02/10/25 8:01 PM Live (more content not included)... 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 Patient feels he may have a UTI I E Scribed Bactrim DS one PO BID # 10 [place] [facility] 36 S: Patient called e clinical access [...] ED. Should go to a store Like [employer] or a large grocery store and Purchase [...] used: Urinary Catheter (e.g., Mendoza) Symptoms and [facility] Anion gap in Serum or Plasma Ordered By: Kasia Choi on 01-26-2025 Anion gap [Moles/Vol] 14 mmol/L - [facility] BUN/creatinine ratioOrdered By: Kasia Choi on 01-26-2025 Urea nitrogen/Creatinine [Mass ratio] 12.5 mg/mg - [facility] Bilirubin, totalOrdered By: Kasia Choi on 01-26-2025 Bilirubin [Mass/Vol] 0.51 mg/dL 0.00-1.30 [facility] Carbon dioxide, total [Moles /volume] in Central venous bloodOrdered By: Kasia Choi on 01-26-2025 CO2 [Moles/Vol] 21.8 mmol/L 21.0-32.0 [facility] Cardiology Visit Reporton Cardiology Visit Report [facility] [address] [place] [address] OFFICE VISIT Date of Service: 01/26/25 MR#: [id number] Acct: [id number] Name: STEPHANE TORIBIO Rep #: [id number] : 1960 Provider: Dr. Kasia Choi MD Age/Sex: 64/M Location: [facility] Status: Signed HPI HPI History of [...] Source Monitor Intake Visit Reasons: Atrial fibrillation Manager Corporate Responsibility Required: No Accompanied by: Is patient in [...] DAILY 11/26/17 01/16/25 H istory omega-3 1,050 rg-fxj-lxi-dpa-fish 1 ea PO DAILY 11/26/17 01/16/25 H istory oil 1,200 mg capsule ([place]-3 2100) vitamin B comp and C no.3 [...] Father Diabetes Arthritis Mother Arthritis Heart disease MD Grandfather Heart disease rheumatic heart disease Social (more content not included)... Normal [facility] Chloride assayOrdered By: Esteban Choi on 01-26-2025 Chloride [Moles/Vol] 104 mmol/L 98-108 [facility] Comprehensive Metabolic Prof ilon 01-26-2025 Albumin [Mass/Vol] 4.0 g/dL Normal 3.4-4.8 [facility] Comment on above: Performed By: #### L 501.9520, L501.5200, L500.4050 ####[facility] [address] [place], [address] Albumin/Globulin [Mass ratio] 1.3 {ratio} Normal 0.9-2.4 [facility] Comment on above: Performed By: #### L 501.9520, L501.5200, L500.4050 ####[facility] [address] [place], [address] ALK PHOS 70 U/L Normal 40-129 [facility] Comment on above: Performed By: #### L 501.9520, L501.5200, L500.4050 ####[facility] [address] [place], [address] ALT [Catalytic activity/Vol] 32 U/L Normal <=46 [facility] Comment on above: Performed By: #### L 501.9520, L501.5200, L500.4050 ####[facility] [address] [place], [address] AST [Catalytic activity/Vol] 22 U/L Normal <=37 [facility] Comment on above: Performed By: #### L 501.9520, L501.5200, L500.4050 ####[facility] [address] [place], [address] Bilirubin [Mass/Vol] 0.51 mg/dL Normal 0.00-1.30 [facility] Comment on above: Performed By: #### L 501.9520, L501.5200, L500.4050 ####[facility] [address] [place], [address] BUN/CRE 12.5 RATIO Normal 10-20 [facility] Comment on above: Performed By: #### L 501.9520, L501.5200, L500.4050 ####[facility] [address] [place], [address] Calcium [Mass/Vol] 9.7 mg/dL Normal 7.6-11.0 [facility] Comment on above: Performed By: #### L 501.9520, L501.5200, L500.4050 ####[facility] [address] [place], [address] Chloride [Moles/Vol] 104 mmol/L Normal 98-108 [facility] Comment on above: Performed By: #### L 501.9520, L501.5200, L500.4050 ####[facility] [address] [place], [address] CO2 [Moles/Vol] 21.8 mmol/L Normal 21.0-32.0 [facility] Comment on above: Performed By: #### L 501.9520, L501.5200, L500.4050 ####[facility] [address] [place], [address] Creatinine [Mass/Vol] 1.32 mg/dL High 0.70-1.20 [facility] Comment on above: Performed By: #### L 501.9520, L501.5200, L500.4050 ####[facility] [address] [place], [address] GAP 14 Normal 5-15 [facility] Comment on above: Performed By: #### L 501.9520, L501.5200, L500.4050 ####[facility] [address] [place], [address] GFR/1.73 sq M.predicted among non-blacks MDRD (S/P/Bld) [Vol rate/Area] 60 mL/min/{1.73_m2} Normal >60 [facility] Comment on above: Result Comment: mL/m in/1.73m2 CKD-EPI Creatinine Equation (2020) Performed By: #### L 501.9520, L501.5200, L500.4050 ####[facility] [address] [place], [address] Globulin (S) [Mass/Vol] 3.1 g/dL Normal 2.2-4.2 [facility] Comment on above: Performed By: #### L 501.9520, L501.5200, L500.4050 ####[facility] [address] [place], [address] Glucose [Mass/Vol] 97 mg/dL Normal 70-99 [facility] Comment on above: Performed By: #### L 501.9520, L501.5200, L500.4050 ####[facility] [address] [place], [address] Potassium [Moles/Vol] 4.3 mmol/L Normal 3.3-5.1 [facility] Comment on above: Performed By: #### L 501.9520, L501.5200, L500.4050 ####[facility] [address] [place], [address] Sodium [Moles/Vol] 139 mmol/L Normal 133-145 [facility] Comment on above: Performed By: #### L 501.9520, L501.5200, L500.4050 ####[facility] [address] [place], [address] T PROT 7.1 g/dL Normal 5.9-8.4 [facility] Comment on above: Performed By: #### L 501.9520, L501.5200, L500.4050 ####[facility] [address] [place], [address] Urea nitrogen [Mass/Vol] 17 mg/dL Normal 4-19 [facility] Comment on above: Performed By: #### L 501.9520, L501.5200, L500.4050 ####[facility] [address] [place], [address] Glomerular filtration rate ( GFR) estimation/1.73 sq m using serum, plasma, or whole bOrdered By: Kasia Choi on 01-26-2025 GFR/1.73 sq M.predicted among non-blacks MDRD (S/P/Bld) [Vol rate/Area] 60 mL/min/{1.73_m2} >60 [facility] Comment on above: mL/min/1.73m2 CKD-EP I Creatinine Equation (2020) Laboratory - Chemistry and C hemistry - challengeOrdered By: Kasia Choi on 01-26-2025 AST [Catalytic activity/Vol] 22 U/L <38 [facility] Magnesiumon 01-26-2025 Magnesium [Mass/Vol] 2.4 mg/dL High 1.5-2.2 [facility] Comment on above: Performed By: #### L 501.9520, L501.5200, L500.4050 ####[facility] [address] [place], [address] Magnesium measurement (mass/ volume)Ordered By: Kasia Choi on 01-26-2025 Magnesium (Unsp spec) [Mass/Vol] 2.4 mg/dL High 1.5-2.2 [facility] Potassium measurement (mass/ volume)Ordered By: Kasia Choi on 01-26-2025 Potassium (Unsp spec) [Mass/Vol] 4.3 mmol/L 3.3-5.1 [facility] Serum creatinine measurement (mass/volume)Ordered By: Kasia Choi on 01-26-2025 Creatinine [Mass/Vol] 1.32 mg/dL High 0.70-1.20 [facility] Serum globulin measurementOr dered By: Kasia Choi on 01-26-2025 Globulin (S) [Mass/Vol] 3.1 g/dL 2.2-4.2 [facility] Serum glucose measurement (m ass/volume)Ordered By: Kasia Choi on 01-26-2025 Glucose [Mass/Vol] 97 mg/dL 70-99 [facility] Serum or plasma alanine castillo otransferase (ALT) measurementOrdered By: Kasia Choi on 01-26-2025 ALT [Catalytic activity/Vol] 32 U/L <47 [facility] Serum or plasma albumin abhay urement (mass/volume)Ordered By: Kasia Choi on 01-26-2025 Albumin [Mass/Vol] 4.0 g/dL 3.4-4.8 [facility] Serum or plasma albumin/glob ulin mass ratioOrdered By: Kasia Choi on 01-26-2025 Albumin/Globulin [Mass ratio] 1.3 {ratio} 0.9-2.4 [facility] Serum or plasma alkaline latisha sphatase measurementOrdered By: Kasia Choi on 01-26-2025 ALP [Catalytic activity/Vol] 70 U/L 40-129 [facility] Serum or plasma calcium abhay urement (mass/volume)Ordered By: Kasia Choi on 01-26-2025 Calcium [Mass/Vol] 9.7 mg/dL 7.6-11.0 [facility] Serum or plasma urea nitroge n measurement (mass/volume)Ordered By: Kasia Choi on 01-26-2025 Urea nitrogen [Mass/Vol] 17 mg/dL 4-19 [facility] Sodium levelOrdered By: Sigifredo Choi on 01-26-2025 Sodium [Moles/Vol] 139 mmol/L 133-145 [facility] TSH DL <= 0.005 mIU/L QnOrde red By: Kasia Jimbo on 01-26-2025 TSH Qn 1.370 uIU/mL 0.300-4.20 0 [facility] Thyroid Stim Hormone (TSH)on 01-26-2025 TSH 1.370 uIU/mL Normal 0.300-4.20 0 [facility] Comment on above: Performed By: #### L 501.9520, L501.5200, L500.4050 ####[facility] [address] [place], [place], [address] Total proteinOrdered By: Alfredito stanford Jimbo on 01-26-2025 Protein [Mass/Vol] 7.1 g/dL 5.9-8.4 [facility] Culture, Anaerobic Any Sourc dee 01-24-2025 CUAN List Antibiotics Las t 48 Hours? none List Antibiotics to be Started? none No growth in 5 days. Normal [facility] Comment on above: Performed By: #### M 100.4001, M100.2000, M100.3000 #### [facility] Laboratory [address] [place], [place], [id number] Nursing Noteon 01-24-2025 Nursing Note Patient discharged a t this time. Patient had IV removed prior to discharge. Patient Left with all documented belongings. AVS reviewed with nurse, all questions answered. Patient taken to main entrance for discharge via wheelchair by NST. [facility] Progress Noteon 01-24-2025 Progress Note Physician Response Please review the following and provide your response below. Please clarify which of the following accurately describes the patient's CKD Stage: CKD Stage 2 (GFR 60-89) This documentation will become part of the patient's medical record. [facility] 36on 01-23-2025 36 Pt is currently admi tted. Pt was referred to Dr. Monique by Dr. Moseley to discuss surgery. Sent pt My Chart message with this information. [facility] 36 ----- Message from Mireya Maradiaga MD sent at 01/20/2025 11:45 AM EDT ----- Please schedule patient with Dr. Moseley or Dr. Powell to discuss robotic suprapubic prostatectomy [facility] 36 Patient was gave john hyde verbatim per Dr. Moseley. Pt phone was very statically but he was able to hear me I just couldn't hear him. Normal [facility] Consulton 01-23-2025 Consult [facility] Wound Care CONSULT Note Stephane Toribio AGE: [...] urology consultation. Patient reports he goes to [place] outpatient wound care. Last visit was early [...] palpable right DP Right lateral calf: 0.5cmx0.3cmx0.1cm. [place] tissue to wound bed. Scant serosang drainage. [...] FOR THE SURGERY ON 03/05/20 AT [facility] [place] [2] Past Surgical History: Procedure Laterality Date CHOLECYSTECTOMY [facility] COLONOSCOPY COLONOSCOPY 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 arthrotomy DIP joint long finger with excision of osteophytes. Dr Jackson OTHER SURGICAL HISTORY [facility] SCAPHOID FRACTURE SURGERY Right [facility] WISDOM TOOTH EXTRACTION [3] Family History Problem Relation Name Age of Onset Arthritis Mother Rachel Toribio Arthritis Father Franki Toribio Hearing loss Father Franki Toribio [4] Social History Tobacco Use Smoking status: Former Current packs/day: 0.00 Types: Cigarettes Quit date: 04/13/1980 Years since qu (more content not included)... Normal [facility] Progress Noteon 01-23-2025 Progress Note Nutrition rescreen completed. Chart reviewed. 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 Cheyenne Nichole, JEANE Normal [facility] Wound Cultureon 01-23-2025 List Antibiotics Las t 48 Hours? none List Antibiotics to be Started? none Wound Culture Brevundimonas diminuta/vesicul Amount Growth Very Rare Brevundimonas diminuta/vesicul: REACTION levoFLOXacin Islt MARLEN 0.25 Meropenem Islt MARLEN <=0.25 S Pip+Tazo Islt MARLEN <=4 S TMP SMX Islt MARLEN <=20 S Normal [facility] Comment on above: Performed By: #### M 100.4001, M100.2000, M100.3000 #### [facility] Laboratory [facility] [place], [place], [id number] BASIC METABOLIC PANELon 01-11 Anion gap [Moles/Vol] 10 mmol/L Normal - [facility] Comment on above: Performed By: #### L AB103, [id number], [id number], LAB15 ####[place]: NURY DORADO ([id number])[facility] Calcium [Mass/Vol] 9.5 mg/dL Normal 8.8-10.0 [facility] Comment on above: Performed By: #### L AB103, NDK689, [id number], LAB15 ####[place]: NURY DORADO ([id number])[facility])[address] [place] [address] Chloride [Moles/Vol] 107 mmol/L Normal 98-107 [facility] Comment on above: Performed By: #### L AB103, OSI283, [id number], LAB15 ####[place]: NURY DROADO ([id number])[facility] ([facility])[address] [place] [address] CO2 [Moles/Vol] 22 mmol/L Low 23-31 [facility] Comment on above: Performed By: #### L AB103, DVD926, [id number], LAB15 ####[place]: NURY DORADO ([id number])[facility])[address] [place] [address] Creatinine [Mass/Vol] 1.32 mg/dL High 0.72-1.25 [facility] Comment on above: Performed By: #### L AB103, XOZ107, [id number], LAB15 ####[place]: NURY DORADO ([id number])[facility] ([facility])[address] [place] [address] GLOMERULAR FILTRATION RATE ML/MIN/1.73 SQ M.PREDICTED 59.9 mL/min/1.73m*2 Low >60.0 [facility] Comment on above: Result Comment: Calc ulation based on the Chronic Kidney Disease Epidemiology Collaboration (CKD-EPI) equation refit without adjustment for race Performed By: #### L AB103, BLG957, [id number], LAB15 ####[place]: NURY DORADO ([id number])[facility])[address] [place] [address] Glucose [Mass/Vol] 121 mg/dL High 82-115 [facility] Comment on above: Performed By: #### L AB103, TQY897, [id number], LAB15 ####[place]: NURY DORADO ([id number])[facility])[address] [place] [address] Potassium [Moles/Vol] 4.1 mmol/L Normal 3.5-5.1 [facility] Comment on above: Result Comment: [facility] potassium values may be up to 0.5 mmol/L lower than serum values. Performed By: #### L AB103, JLK686, [id number], LAB15 ####[place]: NURY DORADO ([phone])[facility] ([facility])[address] [place] [address] Sodium [Moles/Vol] 139 mmol/L Normal 136-145 [facility] Comment on above: Performed By: #### L [id number], [id number], [id number], [id number] ####Steamblaster: NURY DORADO ([phone])[facility])[address] [place] [address] Urea nitrogen [Mass/Vol] 16 mg/dL Normal 9-23 [facility] Comment on above: Performed By: #### L [id number], [id number], [id number], [id number] ####Steamblaster: NURY DORADO ([phone])[facility])[address] [place] [address] Basic metabolic 1998 panelon 01-21-2025 Anion gap [Moles/Vol] 10 mmol/L 3 - 13 mmol/L [facility] Calcium [Mass/Vol] 9.5 mg/dL 8.8 - 10. 0 mg/dL [facility] Chloride [Moles/Vol] 107 mmol/L 98 - 10 7 mmol/L [facility] CO2 [Moles/Vol] 22 mmol/L Low 23 - 31 mmol/L [facility] Creatinine [Mass/Vol] 1.32 mg/dL High 0.72 - 1.25 mg/dL [facility] GFR/1.73 sq M.predicted (S/P/Bld) [Vol rate/Area] 59.9 mL/min Low - PINF [facility] Comment on above: Calculation based on the Chronic Kidney Disease Epidemiology Collaboration (CKD-EPI) equation refit without adjustment for race Glucose [Mass/Vol] 121 mg/dL High 82 - 115 mg/dL [facility] Interpretation and review of laboratory results Abnormal [facility] Potassium [Moles/Vol] 4.1 mmol/L 3.5 - 5.1 mmol/L [facility] Comment on above: Plasma potassium luz marina ues may be up to 0.5 mmol/L lower than serum values. Sodium [Moles/Vol] 139 mmol/L 136 - 145 mmol/L [facility] Urea nitrogen [Mass/Vol] 16 mg/dL 9 - 23 mg/dL [facility] CBC W Auto Differential pane l (Bld)on 01-21-2025 Basophils (Bld) [#/Vol] 0 10*3/uL 0.0 - 0.2 10*3/uL [facility] Basophils/100 WBC (Bld) 0.3 % 0.0 - 2.0 % [facility] Eosinophils (Bld) [#/Vol] 0.1 10*3/uL 0.0 - 0.5 10*3/uL [facility] Eosinophils/100 WBC (Bld) 1.1 % 0.0 - 6.0 % [facility] Erythrocyte distribution width (RBC) [Ratio] 12 % 11.5 - 15.0 % [facility] Hematocrit (Bld) [Volume fraction] 38.7 % Low 40.0 - 52.0 % [facility] Hemoglobin (Bld) [Mass/Vol] 13 g/dL 13.0 - 18.0 g/dL [facility] Immature granulocytes (Bld) [#/Vol] 0.1 10*3/uL High NINF - 0.1 10*3/uL [facility] Immature granulocytes/100 WBC (Bld) 0.5 % 0.0 - 2.0 % [facility] Interpretation and review of laboratory results Abnormal [facility] Lymphocytes (Bld) [#/Vol] 1.5 10*3/uL 1.0 - 4.3 10*3/uL [facility] Lymphocytes/100 WBC (Bld) 13.2 % Low 15.0 - 45.0 % [facility] MCH (RBC) [Entitic mass] 29.3 pg 26.0 - 34.0 pg [facility] MCHC (RBC) [Mass/Vol] 33.6 % 30.5 - 36.0 % [facility] MCV (RBC) [Entitic vol] 87.4 fL 77.0 - 99.0 fL [facility] Monocytes (Bld) [#/Vol] 0.9 10*3/uL 0.0 - 0.9 10*3/uL [facility] Monocytes/100 WBC (Bld) 8.3 % 5.0 - 13.0 % [facility] Neutrophils (Bld) [#/Vol] 8.7 10*3/uL High 1.8 - 7.5 10*3/uL [facility] Neutrophils/100 WBC (Bld) 76.6 % 38.0 - 82.0 % [facility] Nucleated RBC/100 WBC (Bld) [Ratio] 0 % [facility] Platelet mean volume (Bld) [Entitic vol] 9.3 fL 9.0 - 12.7 fL [facility] Platelets (Bld) [#/Vol] 255 10*3/uL 140 - 440 10*3/uL [facility] RBC (Bld) [#/Vol] 4.43 10*6/uL 4.40 - 5.90 10*6/uL [facility] WBC (Bld) [#/Vol] 11.4 10*3/uL High 3.6 - 10.7 10*3/uL [facility] CBC WITH AUTO DIFFERENTIALon 01-21-2025 Basophils (Bld) [#/Vol] 0.0 10*3/uL Normal 0.0-0.2 [facility] Comment on above: Performed By: #### L [id number] ####Steamblaster: NURY DORADO ([phone])[facility] ([facility])[address] [place] [address] Basophils/100 WBC (Bld) 0.3 % Normal 0.0-2.0 [facility] Comment on above: Performed By: #### L [id number] ####Steamblaster: NURY DORADO ([phone])[facility] ([facility])[address] [place] [address] Eosinophils (Bld) [#/Vol] 0.1 10*3/uL Normal 0.0-0.5 [facility] Comment on above: Performed By: #### L [id number] ####Steamblaster: NURY DORADO ([phone])[facility])[address] [place] [address] Eosinophils/100 WBC (Bld) 1.1 % Normal 0.0-6.0 [facility] Comment on above: Performed By: #### L [id number] ####Steamblaster: NURY DORADO ([phone])[facility])[address] [place] [address] Erythrocyte distribution width (RBC) [Ratio] 12.0 % Normal 11.5-15.0 [facility] Comment on above: Performed By: #### L [id number] ####Steamblaster: NURY DORADO ([phone])[address] Hematocrit (Bld) [Volume fraction] 38.7 % Low 40.0-52.0 [facility] Comment on above: Performed By: #### L [id number] ####Steamblaster: NURY DORADO ([phone])[address] Hemoglobin (Bld) [Mass/Vol] 13.0 g/dL Normal 13.0-18.0 [facility] Comment on above: Performed By: #### L [id number] ####Steamblaster: NURY DORADO ([phone])[facility])[address] [place] [address] IMMATURE GRANS % 0.5 % Normal 0.0-2.0 [facility] Comment on above: Performed By: #### L [id number] ####Steamblaster: NURY DORADO ([phone])[address] IMMATURE GRANS ABSOLUTE 0.1 10*3/uL High <0.1 [facility] Comment on above: Performed By: #### L [id number] ####Steamblaster: NURY DORADO ([phone])[facility])[address] [place] [address] Lymphocytes (Bld) [#/Vol] 1.5 10*3/uL Normal 1.0-4.3 [facility] Comment on above: Performed By: #### L [id number] ####Steamblaster: NURY DORADO ([phone])[facility])[address] [place] [address] Lymphocytes/100 WBC (Bld) 13.2 % Low 15.0-45.0 [facility] Comment on above: Performed By: #### L [id number] ####Steamblaster: NURY DORADO ([phone])[facility])[address] [place] [address] MCH (RBC) [Entitic mass] 29.3 pg Normal 26.0-34.0 [facility] Comment on above: Performed By: #### L [id number] ####Steamblaster: NURY DORADO ([phone])[facility])[address] [place] [address] MCHC 33.6 % Normal 30.5-36.0 [facility] Comment on above: Performed By: #### L [id number] ####Steamblaster: NURY DORADO ([phone])[facility])[address] [place] [address] MCV (RBC) [Entitic vol] 87.4 fL Normal 77.0-99.0 [facility] Comment on above: Performed By: #### L [id number] ####Steamblaster: NURY DORADO ([phone])[facility])[address] [place] [address] Monocytes (Bld) [#/Vol] 0.9 10*3/uL Normal 0.0-0.9 [facility] Comment on above: Performed By: #### L [id number] ####Steamblaster: NURY DORADO ([phone])[facility])[address] [place] [address] Monocytes/100 WBC (Bld) 8.3 % Normal 5.0-13.0 [facility] Comment on above: Performed By: #### L [id number] ####Steamblaster: NURY DORADO ([id number])[facility] ([facility])[address] [place] [address] NEUTROPHILS ABSOLUTE 8.7 10*3/uL High 1.8-7.5 [facility] Comment on above: Performed By: #### L [id number] ####Steamblaster: NURY DORADO ([phone])[facility] ([facility])[address] [place] [address] Neutrophils/100 WBC (Bld) 76.6 % Normal 38.0-82.0 [facility] Comment on above: Performed By: #### L [id number] ####Steamblaster: NURY DORADO ([phone])[facility] ([facility])[address] [place] [address] NRBC 0.0 /100 WBCs Normal 0.0-2.0 [facility] Comment on above: Performed By: #### L [id number] ####Steamblaster: NURY DORADO ([phone])[facility] ([facility])[address] [place] [address] Platelet mean volume (Bld) [Entitic vol] 9.3 fL Normal 9.0-12.7 [facility] Comment on above: Performed By: #### L [id number] ####Steamblaster: NURY DORADO ([phone])[facility] ([facility])[address] [place] [address] Platelets (Bld) [#/Vol] 255 10*3/uL Normal 140-440 [facility] Comment on above: Performed By: #### L [id number] ####Steamblaster: NURY DORADO ([phone])[facility] ([facility])[address] [place] [address] RBC (Bld) [#/Vol] 4.43 10*6/uL Normal 4.40-5.90 [facility] Comment on above: Performed By: #### L [id number] ####Steamblaster: NURY DORADO ([phone])[facility] ([facility])[address] [place] [address] WBC (Bld) [#/Vol] 11.4 10*3/uL High 3.6-10.7 [facility] Comment on above: Performed By: #### L [id number] ####Steamblaster: NURY DORADO ([phone])[facility] ([facility])[address] [place] [address] COMPLETE URINALYSIS WITH REF RADHA TO CULTUREon 01-21-2025 BACTERIA (#/HPF) IN URINE Few Abnormal Negative [facility] Comment on above: Performed By: #### L [id number] #### Steamblaster: NURY DORADO ([phone]) [facility] ([facility]) [address] [place] [address] BILIRUBIN, TOTAL PRESENCE IN URINE Negative Normal Negative [facility] Comment on above: Performed By: #### L [id number] #### Steamblaster: NURY DORADO ([phone]) [facility] ([facility]) [address] [place] [address] Clarity (U) Clear Normal Clear [facility] Comment on above: Performed By: #### L [id number] #### Steamblaster: NURY DORADO ([phone]) [facility] ([facility]) [address] [place] [address] Color (U) Dark Yellow Abnormal Lt. Yellow [facility] Comment on above: Performed By: #### L [id number] #### Steamblaster: NURY DORADO ([id number]) [facility] ([facility]) [address] [place] [address] GLUCOSE (MG/DL) IN URINE Normal Normal Normal (<70) [facility] Comment on above: Performed By: #### L [id number] #### Steamblaster: NURY DORADO ([id number]) [facility] ([facility]) [address] [place] [address] HEMOGLOBIN PRESENCE IN URINE 0.2 mg/dL Abnormal Negative [facility] Comment on above: Performed By: #### L [id number] #### Steamblaster: NURY DORADO ([id number]) [facility] ([facility]) [address] [place] [address] Ketones Ql (U) Negative Normal Negative [facility] Comment on above: Performed By: #### L [id number] #### Steamblaster: NURY DORADO ([phone]) [facility] ([facility]) [address] [place] [address] LEUKOCYTE ESTERASE PRESENCE IN URINE BY TEST STRIP 250 Joe/uL Abnormal Negative [facility] Comment on above: Performed By: #### L [id number] #### Steamblaster: NURY DORADO ([phone]) [facility] ([facility]) [address] [place] [address] MUCUS (#/LPF) IN URINE SEDIMENT Few Normal Negative [facility] Comment on above: Performed By: #### L [id number] #### Steamblaster: NURY DORADO ([phone]) [facility] ([facility]) [address] [place] [address] NITRITE PRESENCE IN URINE Negative Normal Negative [facility] Comment on above: Performed By: #### L [id number] #### Steamblaster: NURY DORADO ([phone]) [facility] ([facility]) [address] [place] [address] pH (U) 7.0 [pH] Normal 5.0-8.0 [facility] Comment on above: Performed By: #### L [id number] #### Steamblaster: NURY DORADO ([id number]) [facility] ([facility]) [address] [place] [address] Protein (U) [Mass/Vol] Negative Normal Negative [facility] Comment on above: Performed By: #### L [id number] #### Steamblaster: NURY DORADO ([id number]) [facility] ([facility]) [address] [place] [address] [place] RBC (#/HPF) IN URINE SEDIMENT 26-50 Abnormal 0-2 [facility] Comment on above: Performed By: #### L [id number] #### Steamblaster: NURY DORADO ([id number]) [facility] ([facility]) [address] [place] [address] Specific gravity (U) [Rel density] 1.023 Normal 1.005-1.03 0 [facility] Comment on above: Result Comment: TAY Bailon COMMENTS: A specimen with <=10 WBC is not consistent with inflammation. This specimen will not reflex to a urine culture. Performed By: #### L [id number] #### Steamblaster: NURY DORADO ([phone]) [facility] ([facility]) [address] [place] [address] SQUAMOUS EPITHELIAL CELLS (#/HPF) IN URINE SEDIMENT Negative Normal 3-5 [facility] Comment on above: Performed By: #### L [id number] #### Steamblaster: NURY DORADO ([id number]) [facility] ([facility]) [address] [place] [address] UROBILINOGEN (MG/DL) IN URINE Normal Normal Normal (0-1) [facility] Comment on above: Performed By: #### L [id number] #### Steamblaster: NURY DORADO ([phone]) [facility] ([facility]) [address] [place] [address] WBC (LEUKOCYTE) (#/HPF) IN URINE SEDIMENT 6-10 Abnormal 0-5 [facility] Comment on above: Performed By: #### L [id number] #### Steamblaster: NURY DORADO ([phone]) [facility] ([facility]) [address] [place] [address] CT ABDOMEN PELVIS W CONTRAST on 01-21-2025 [...] Continued urinary issues, Bladder delay completed Normal [facility] CT Abdomen and Pelvis W cont rast Abby 01-21-2025 1. Prostatomegaly which protrudes into the posterior bladder wall (correlate with MRI pelvis 01/10/2025). A Mendoza catheter is present in a decompressed bladder. 2. Colonic diverticulosis. 3. Additional findings, as above. Report Dictated on Electronically Signed By: Cheyenne Mcnamara MD Electronically Signed Date/Time: 01/21/2025 8:03 PM [facility] Patient Name: STEPHANE TORIBIO : 1960 [facility]#: [id number] Exam Date/Time: 01/21/2025 19:43 Procedure: CT ABDOMEN [...] hernia is present. There is no lymphadenopathy. [facility] Cheyenne Mcnamara MD - 01/21/2025 [...] Electronically Signed Date/Time: 01/21/2025 8:03 PM EDT [facility] Radiology Study observation (narrative) [facility] CT Abdomen and Pelvis W cont rast IVOrdered By: Cheyenne Mcnamara on 01-21-2025 [employer] Work Phone: Consulton 01-21-2025 Consult ------ -- [...] referred him to Dr Vishnu Monique at [facility] for Holep Abimael Moseley MD -- Urology [...] - cont (more content not included)... 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 Pt stating he feels full and like he has to pee. Pt denies any pain at this time and tolerated procedure well. Normal [facility] ED Provider Noteon ED Provider Note EMERGENCY DEPARTMENT ENCOUNTER Pt Name: Stephane Toribio Birthdate 1960 Date of evaluation: 01/21/2025 ED Provider: Jade Whitt APRN - [facility]care was supervised by Dr. Muñiz who [...] states he was seen evaluated 01/15/2025 in [facility] in [place] for urinary retention and hematuria. Patient underwent [...] 5 MG TA (more content not included)... [facility] ED Provider Note Emergency Department Encounter [facility] EMERGENCY DEPT Patient: Stephane Toribio : [...] entirety of this encounter. In brief, Stephane Toirbio is a 64 y.o. that presents to [...] Muñiz MD [TB] Jade Whitt APRN - OPTICAL INSTRUMENT ASSEMBLER Diagnoses as of 01/21/252256 Bladder spasm Lower [...] department visit, ple (more content not included)... [facility] ED Provider Note Emergency Department Encounter Location: [facility] OBSERVATION UNIT 5E Patient: Stephane Toribio [...] 349 ms QTC Interval 420 ms P [place] 60 degrees QRS [place] 45 degrees T Wave [place] 62 degrees [place] Interval 154 ms Basic metabolic panel Collection [...] Estrada MD (more content not included)... Normal [facility] HIGH SENSITIVITY TROPONIN, S ERIAL BASELINEon 01-21-2025 TROPONIN HS SERIAL BASELINE 4 ng/L Normal <=35 [facility] Comment on above: Result Comment: In i ndividuals presenting with symptoms > 2h, a baseline troponin <= 5 ng/L suggests acute cardiac injury is unlikely and further serial testing is generally not indicated. Performed By: #### L [id number], [id number], [id number], [id number] ####Steamblaster: NURY DORADO ([phone])[address] HIGH SENSITIVITY TROPONIN, S ERIAL, SECOND TESTon 01-21-2025 2H TROPONIN HS (SERIAL 2ND TROPONIN) 4 ng/L Normal <=35 [facility] Comment on above: Result Comment: 2h t roponin (2nd troponin) samples collected between 1h 40 min and 2h and 20 min of the baseline collection time can be utilized to interpret delta troponins as per [facility] algorithms. Samples collected outside this timeframe need to be interpreted clinically. Rising or falling troponin delta below 2 ng/L as compared to baseline value suggests that acute cardiac injury is unlikely. Performed By: #### L [id number] ####Steamblaster: NURY DORADO ([phone])[facility] [place] [address] Laboratory - Chemistry and C hemistry - challengeon 01-21-2025 TSH Qn 0.94 m[IU]/L [facility] Magnesium [Mass/Vol] 1.9 mg/dL 1.6 - 2 .6 mg/dL [facility] MAGNESIUMon 01-21-2025 Magnesium [Mass/Vol] 1.9 mg/dL Normal 1.6-2.6 [facility] Comment on above: Result Comment: TAY R COMMENTS: Higher values can be expected in females during menses. Performed By: #### L [id number], [id number], [id number], [id number] ####Steamblaster: NURY DORADO ([phone])[facility] [place] [address] Magnesium [Mass/Vol]on 01-21 Interpretation and review of laboratory results Normal [facility] Higher values can be expected in females during menses. [facility] No Panel Informationon 01-21 2h Troponin HS (Serial 2nd Troponin) 4 ng/L NINF - 35 ng/L [facility] Comment on above: 2h troponin (2nd tro ponin) samples collected between 1h 40 min and 2h and 20 min of the baseline collection time can be utilized to interpret delta troponins as per [facility] algorithms. Samples collected outside this timeframe need to be interpreted clinically. Rising or falling troponin delta below 2 ng/L as compared to baseline value suggests that acute cardiac injury is unlikely. Interpretation and review of laboratory results Normal [facility] Interpretation and review of laboratory results Normal [facility] Troponin HS Serial Baseline 4 ng/L NINF - 35 ng/L [facility] Comment on above: In individuals prese nting with symptoms > 2h, a baseline troponin <= 5 ng/L suggests acute cardiac injury is unlikely and further serial testing is generally not indicated. [facility] P [place] 60 degrees [facility] [place] Interval 154 ms [facility] QRS [place] 45 degrees [facility] QRSD Interval 92 ms [facility] QT Interval 349 ms [facility] QTC Interval 420 ms [facility] T Wave [place] 62 degrees [facility] Sinus rhythm Supraventricular bigeminy Electronically Signed On 01-21-2025 18:56:53 EDT by Vani Muñiz CV Vani Barriga MD - 01/21/2025 IMPRESSION: Sinus rhythm Supraventricular bigeminy Electronically Signed On 01-21-2025 18:56:53 EDT by Vani Muñiz [facility] THYROID STIMULATING HORMONEo n 01-21-2025 THYROID STIMULATING HORMONE 0.94 uIU/mL Normal 0.35-4.94 [facility] Comment on above: Performed By: #### L [id number], [id number], [id number], LAB15 ####Steamblaster: NURY DORADO ([phone])[facility] ([facility])[address] [place] [address] TSH Qnon 01-21-2025 Interpretation and review of laboratory results Normal [facility] Urinalysis complete panel (U )Ordered By: Colin Alonso on 01-21-2025 Bacteria LM.HPF (Urine sed) [#/Area] Few Abnormal Negative /HPF [facility] Bilirubin Ql (U) Negative Negative mg/dL [facility] Clarity (U) Clear Clear [facility] Color (U) Dark Yellow Abnormal Lt. Yellow [facility] Epithelial cells.squamous LM.HPF (Urine sed) [#/Area] Negative [facility] Glucose Ql (U) Normal Normal (<70) mg/dL [facility] Hemoglobin Ql (U) 0.2 mg/dL Abnormal Negative [facility] Interpretation and review of laboratory results Abnormal [facility] Ketones (U) [Mass/Vol] Negative Negat jada mg/dL [facility] Leukocyte esterase Test strip Ql (U) 250 Abnormal Negative Joe/uL [facility] Mucus LM.HPF (Urine sed) [#/Area] Few Negative /LPF [facility] Nitrite Ql (U) Negative Negative [facility] pH (U) 7.0 [pH] 5.0 - 8.0 pH [facility] Protein (U) [Mass/Vol] Negative Negat jada mg/dL [facility] RBC LM.HPF (Urine sed) [#/Area] 26-50 Abnormal [facility] Specific gravity (U) [Rel density] 1.023 1.005 - 1.030 [facility] Urobilinogen (U) [Mass/Vol] Normal Normal (0-1) mg/dL [facility] WBC LM.HPF (Urine sed) [#/Area] 6-10 Abnormal [facility] A specimen with <=10 WBC is not consistent with inflammation. This specimen will not reflex to a urine culture. [facility] Vital signson 01-21-2025 Heart rate 87 /min bpm [facility] XR Chest Single viewon 01-21 FINDINGS AND IMPRESS ION: SUPPORT DEVICES: None OSSEOUS STRUCTURES: Unremarkable. HEART AND MEDIASTINUM: The cardiomediastinal silhouette appears unchanged from the prior exam. LUNGS AND PLEURA: The lungs are clear. No sizable pleural effusion. Report Dictated on Electronically Signed By: Jani Estrada MD Electronically Signed Date/Time: 01/21/2025 6:57 PM EDT [facility] Patient Name: STEPHANE TORIBIO : 1960 [id number] Exam Date/Time: 01/21/2025 18:39 Procedure: XR CHEST 1 VIEW Ordering Provider: WHITT TRESA Reason For Exam: CHEST PAIN; Chest Pain CHEST CLINICAL INDICATION: Chest pain TECHNIQUE: AP portable chest COMPARISON: 05/17/2024 [facility] Jani Estrada MD - 01/21/2025 Patient [...] Electronically Signed Date/Time: 01/21/2025 6:57 PM EDT [facility] [employer] Radiology Study observation (narrative) [employer] XR Chest Single viewOrdered By: Jani Estrada on 01-21-2025 [employer] Work Phone: [phone] 01-20-2025 36 Name of Caller: Antoine so Contact Reason for Appointment: Pt called to request an appointment with Dr Moseley for surgery. Please provide information for pt to schedule with Dr Moseley. Office Name: Urology Normal [facility] Gram Stainon 01-20-2025 GS List Antibiotics Las t 48 Hours? none List Antibiotics to be Started? none Gram Stain 1+ Red Blood Cells No White Blood Cells No Epithelial cells No organisms seen Normal [facility] Comment on above: Performed By: #### M 100.4001, M100.2000, M100.3000 #### [facility] [address] [place], [place], [address] Office Visiton 01-20-2025 Follow-up visit [id number] Antoine Toribio 1960 M Date Provider Department Center 01/20/2025 [id number] [facility] URO None Family History Problem Relation Age of Onset Arthritis Mother Arthritis Father Hearing loss Father Family Status - Relation Status Age at Mother Alive Father Alive Level of Service:41005 [place] OFFICE/OUTPATIENT ESTABLISHED MOD MDM 30 MIN Reason for Visit and Comments: Other [0] - Follow up, ER Has mendoza catheter, some blood clots Bladders spasms with great discomfort Needs refills of antispasm medication Normal [facility] Progress Noteon 01-20-2025 Progress Note Reji [...] into urinary retention. He was seen in [facility] ER on 01/17/2025 for catheter evaluation. He underwent cystoscopy and fulguration of prostatic bleeders by Dr. Hitesh Nava at [facility] in [place] on 01/15/25 Review of Systems Past Medical [...] daily. 01/02/25 04/02/25 Reji Maradiaga MD HYDROcodone-acetaminophen (Eloy) 5-325 MG tablet Take 1 tablet by mouth every 6 hours as needed for severe pain (7-10) for up to 3 days. 01/17/25 01/20/25 Verena Hidalgo PA-C lisinopril 20 MG tablet Take 20 mg by mouth. Historical Provider, loratadine (Claritin) 10 MG tablet Take 10 mg by mouth daily. Historical Provider, melatonin 5 MG tablet Take 5 mg by mouth. Historical Provider, [facility] (Prostate Health) capsule Take by [...] split. 01/17/25 07/16/25 Katty Vee APRN - [employer] tamsulosin (Flomax) 0.4 MG 24 hr capsule [...] Pulmonary effort is normal. Genitourinary: Comments: 24 [place] three-way Mendoza in place with third port [...] 10.300 12/18/2023: PSA: 5.480 10/09/2023: PSA: 8.670 (Pearl) 04/20/2023: PSA: 7.200 w/ 31% free (Pearl) 11/28/2022: PSA: 7.440 10/31/2022: PSA: 6.670 05/02/2022: PSA: 4.588 10/24/2021: PSA: 4.256 09/20/2019 (more content not included)... Normal [facility] Anaerobic cultureOrdered By: Yola Sepulveda on 01-19-2025 Bacteria identified Anaer cx Nom (Unsp spec) No growth in 5 days. [facility] Coding Summaryon 01-19-2025 Coding Summary HTMLBase 64 ProryttcLCm0pQt+PGhlYWQ+PE 3VSZJuS27fhEUujH4qH8ISYExO FcvfSHFKEHsWMfGkyuAtCQ1qaN NjZXJu IC8+OL5yHZQjOqlsnKGqj7A2rD T4S13gdj6jRWyjwLG3OQBsIbYq qdhsm7bhdWd6LUrsHqwpRdYk IGQzrS52BNR9gL94Nv19kPPgxQ Hba0legLz1NkVpZNPoJXY3nXyq KLzbs3MeTRWfZ76pzCQzr6J4 URJexQuttUPfNjZirHF7aN3xYS shdobcu5afgxknYdx7rc41jWPp e2Z6vPI1S9FnhwC5ESRvnNKx TdvxlFTQdV3gjlhba7ukpukfSk SqJXSmTQf2JMd3CENveSwmIiVy UR00KVI3YJBiznHfF9PpDLOy jHwjGqC2c2D7Rh1SP9ISMlfiQ8 VNTUFSWTwvdGQ+WC93zi50Y3Av GlyfGdz2CMUlKVO9dTK3fY4p PABuWElim2V2lDB9R2EkvhBrir 8sk2jtDALuNMpiV67ixLNma0W2 YSRwlWQ1BQYpyDgzFtHwuA27 Oyc+MXTqmXbyf4XlObykf7xij2 vvmFc4RpcwYAJvpmOcdUjySMF6 z2BkOq3kXOYqeMN0ySQ4xZ9v TiVdKiA5SUmlY779QsIlhHIgLd uaA71wD8SdaFQ+OYUlLru0RQCr jHreLN9nF4QmHCQaocbuvPJp kDbfZX3rLIRxrkwxUMOjiM6dEF MhP5o5HbTaTrZ1ZJcyC6ZwNNEn foneGe89lK1dJpOrVyV7ARzs Z6MaxfW8YFEfmYZvNRzyWMW4T2 6jb5D8KAWhVXRxNQE5zBX2fX3v bGlnbjogbGVmdDsgdmVydGlj JAzbDSsxA579OMWtvZowNjCaYW luZyBEYXRlOiAgMTAvMDkvMjAy NTwvdGQ+XCGyJOU6fZacCVQr vGMgEBzjZn5ojJqgtNejCM1vUN FcrxpwQXMfgH9nBOTphCUszEjk XB9wRRFgurubo019XyKlLGS7 XDZhcRJoV7IanN9xFuFpIMSjIM MzU4XctEUpWPtuU340TFbxYmS0 POKtrtUoX2UiNMXulLeaMvD5 a7B6Jc9Qn0QdauzbJ4CrxJGaQk MnEttxROi6S1HoJtqycCL+PC90 AZPlSO48OKc9PPS7wXktOIht STSqW2GibR3bWwMgJFEwNNJdYz c+PHRhYmxlIHdpZHRoPScxMDAl HdCybKaiJB9tDq1cKRErZCQl qVkzvSGuQcZap8bsRMGbQNgpZV 1izMucQ2OzmRT6TCTtn7l7Lo58 M11dW9WiwFR+XQZgsNF1aKQ9 tO5tFtQsJeW4BBvrT276BeSnkF WkChjhf2eqq8xmjUh6DoY9HYNv tgLtaQgcXUT0m9WdHm69L47j IHdpZHRoPSIxNSUiIHZhbGlnbj 2owH9lRa3+GSUbnIY6xJK7pV1x BfEsYeM4WOsyX669EgCfvBWx Fhrcd0gpa8nkwVr1KxQiMZAlmj MxeCtdBLN8y4AgKj95S2TorVel x6OyYvg1oa36pCFxs7W9eHH3 P0AkNCTaaalkcVGxbWheFP5fKS IcvilkPINprW7xRFYiW8i7SzAs UvJ1PPolY0HzkzI0JLHsmWNk BXVfxGVIiW5bnxpwv5edsnmoNn RlRGZjLRc2DQg2JDQezTchHwZs REG2CtT8GCN4hYLtzE1owCba nnfunE4lYax+UAJ7mLJomWTYFO 1lOjwvdGQ+XJVfCEF7wDsxAYkq FTQepA0rSVLuW3i1WlHdZkH3 XIgsI7QaikA1ECQroMDcNJIupP TJoY1rablwr3agqrvxOoYfGZPb NZi3ZGg7USNanFkrXkTuRUM5 YiW1QJW3yVCpuG3nyFqsrzttaW 9wOyc+IlumnEduZWF7VMj6V1Oq Eum6NAEawFxkIN7yrQCfAQug Fr7vtAhkbKigYH3kSTEtowfwx6 05BwAep6duIGAitMLiLZuvRUY3 W34ib9W7LUZzXLTdSNG7mIO9 iP1zvVoepscumWZgoCokiaIshK mgERsmPCdrI455JXIhpMspBoBa IEk1A6VcJix9KLAdhPpcMH9g oRVjMTfaYc4ekDadhOwkIG9tGJ Kxjxugr374GeZyu3xgRQIuxFDv ZRmvEYZ2K94ox1C0PRTvSEWl VCT0kMA3tO9khNwaoqpwxEAzeA hqszDaqUknAYinPOtoB078BDKp vZkaXiSciEv8O4UjEeg2ZQIt wCsyDF8kgYAfMJrdVo2cnLkzhK jvVM0xQVZphnphp967YcLmk0nd UKYzeBDaEAkoZCR1R06ma9T8 PGCzLCTnEZA0oSD6mX1csRvcpt ogbGVmdDsgdmVydGljYWwtYWxp J293LROghPnzYiBujXhcheVs MVyhKYc3G8DiLkqalSR+PC90YW YhDQ00wJYqdSTno8hqeUl4BoGq LSRqQSK4gGxnIZowa1LdQUNm I82gmMUgp4W2JGKhnBojbDDfVe RgdZD7lI4cZHakmsnec4rksqkh Exvqb0stxh45kU83G59vZXum ODYzGIFiCVCqTBQtlQewvc2aeZ 9wIi8+QZSroGA7yAW9aZ0gOMZd XgP4DYhqQ062SvEzqOYsZpks x1yve0zjlPf8ZiW0WFSsuwTkmF dkXVS9x7HkMy18O44wMSfqZUQp UJOyCJSeSZAzxHghud1zbB3a Ii8+HBCtpKW5cEY2xA8rZwApOb N7TAtgO655YiFzmFQlHiawH67h U1XueQA+JOJkCdc3YNLdoVrl NM1ihQSqSJfoPm6vVXS2WyZhMq DrEXioU4XtAKOrwidfjvlfgQX5 SXJrKPZguG94Eg8jjSvpUXUr qPEGdY5lgpxlg0yjkginAeMtAI JpKKp4TIv5LSHhkCobUzSwLLV9 PuH9APV0pAJpqH9ohAqonopt dC7cT9DoJCTuiwdlPm66aF7xBe VgFeQ2LLcgOiu+R4dPPTXJAVRX XV5OEZryQc0SBQKONP49BB44 rXEvc3U3lHI1D8VuXELpkdavoo tasCE7QCJqCLZofN67aNCcCPgw Vv5tl5O7v968AVLjZGPcxL00 Gj2dkIqxTASgyYYXkI0rwyugu4 rixmekHjKbMMIuJFi8WSy4JNLy dImdEkDnPPZ9BfZ0DBD5eSXi rK4xxUpjnobohY1eFhf+MDcvMD QxYWu2AQfzcLM+HYFkRNW5wKjk AXzdMIOntF0mVDUdQ6k2CiDk IpM7NNnvT8QgDMIdadwbXf12jD 5nSgIyDoV2KJvjH2DbamP8CLDt gGFzBKqpWUY7D53gk4Q4ZOMj GNFoNFU8jVX8iO7qtZqbjqbvbD PihJdcdfBmrFdvPVrwIKvfQ683 TEYkzRaiOfD0DZggTPYqYZ83 JP14mKPdm7G6zTQ0K6AoIHJnhx tjivajvJG7VZTpYUUbbD80pLXc HDskXd0sy3B8p779INLpWUPv cH53Xf8boXnpZIMqtRCZrJ8ixf idm5ivopxfTeKpVMCtXQm9ECt8 XJZujPblBuBqMCC5UjC1TWM5 bBAvgW3urFdzbgudrK8iAgh+TU FMRTwvdGQ+IOKlATR6hHsvQIgr MJXeaH3xKWGfU9b9HnIwQjI9 SAwxK2RxFQOunhhoPr31pJ6bDj BtAmX5UXzlJ4WvdkI4XLJmjSPz JTmpXGY7J08as9Z4TMRnZWOe NWB2fPS9kJ6yfEhyrkfbgJGjrO kqfzYosVvjNKrzJWejF285UQQa rNhpHxByEPUzIF3tnMkkqHD+ XQ50ia73D9LeLehdAvk3PWVnTW E5hEZ7nS5oNKTbPTvjq1W3xYH1 A5FwbuLxsf1uo4ouCJWyKIfq T96bcUUfy2V1QQDnrEH5YLWcjQ gvVyVkhT53Zxg+NQPzrQulx4Pb Iiqkw3pbl0xouAb3PzVbBPHn znWsuIvqQTZ4q3MdVr44R17pHE gpYUAdZJLnZXFtPSHviOgzxt9k uH3pIy0+HOGdaHG8aXI9oC6m XoZrTuN8UWsjC276JfQrlGMhQo bpy5jil5cbjYr2BiBhAIQavgMb oHvnHPI6e6VlJr47N3FfmMim g5JcXzn6zu64lPQvw3T4zXB9X3 BcHFMxqjjwkCJrrQbxGO4vQEXo gtjxKSTpgT5ePUKbL3p8JzRn GbL0DLwrI9AmwaS5ALHrrUAnNL RepQUQiA1shjwur5rlhduuWmNy SSSiAIq1KJe6FIUlcNnsFqQu WMU1JdP1IVA2kANlaY7szNlpkr bphD7yMfb+REr8o0pmmYMdRG5g jXP2EO18AO87gMLed5P8mPM9 L8LaUCBqnqfdpsoymKH7ZYUaJD QagJ64Ky6blEsoLe3cDSIvVSM9 ORShuPYvM0QnkR3rMtEpDBPx WMPxY5SwzLXqJJfpW592RYhxLu V1GZYwdlSdE8KdIMFhcLmwNfT1 n3V8Ri3DBK46KL28JZ80wVPe c1E2jVK3A5PgCUGgnlijbgxtmE O4AJFtBDAgnD44Qv3jiHnkZy9j KBKiXFX2YZGknLMqJ9PwoA6d ApGtSECvUMNqX3FtgGXbSIyvA4 74SQsxHsT9HNUxdzXuH5TdFJIh iNlnAtH8n7C7Az0TAt38TQ01 IX75iGGqs3Y5sZT2T0UlDFVzsb wnqfvekOW1PPVmXHGbxJ34Lv5r uLyhVc9hOAMoGKP2UZMhzHDk S9LydZ3uEkNoZTEoNOGtG8YomM GbMAqsK239ATlpDvN3FQNifaOo R8JiMGOkkIgsBvS7v9O1Fs2Q AWinrug3W6TyNpmfvIQ+PC90YW XsOZ12pJTpwTTny3okaXf2OeDj ISLbVQF8aTswPLplk7PaJZNn Y29 (more content not included)... Normal [facility] Gram stainOrdered By: Aidan Sepulveda on 01-19-2025 Microscopic observation Gram stain Nom (Unsp spec) [facility] Routine wound cultureOrdered By: Yola Sepulveda on 01-19-2025 Microbial culture, routine Brevundimonas diminuta/vesicul Abnormal [facility] 36on 01-17-2025 36 I sent in some vesic are. I would recommend stopping the levsin while taking the vesicare. I didn't see this medication on his med list. Normal [facility] 36 Given this new situa tion, I think that the best course of action would be for the patient to be seen by Dr. Powell or Dr. Moseley to discuss robotic suprapubic prostatectomy [facility] 36 Pt is taking levsin for spasms and is not really helping . Can the antispasmodic be changed ? [facility] BASIC METABOLIC PANELon 10-0 Anion gap [Moles/Vol] 10 mmol/L Normal 3-13 [facility] Comment on above: Performed By: #### L [id number] ####Steamblaster: NURY DORADO ([phone])[facility])[address] [place] [address] Calcium [Mass/Vol] 9.3 mg/dL Normal 8.8-10.0 [facility] Comment on above: Performed By: #### L [id number] ####Steamblaster: NURY DORADO ([phone])[facility] ([facility])[address] [place] [address] Chloride [Moles/Vol] 106 mmol/L Normal 98-107 [facility] Comment on above: Performed By: #### L [id number] ####Steamblaster: NURY DORADO ([phone])[facility])[address] [place] [address] CO2 [Moles/Vol] 23 mmol/L Normal 23-31 [facility] Comment on above: Performed By: #### L [id number] ####Steamblaster: NURY DORADO ([phone])[facility])[address] [place] [address] Creatinine [Mass/Vol] 1.28 mg/dL High 0.72-1.25 [facility] Comment on above: Performed By: #### L [id number] ####Steamblaster: NURY DORADO ([phone])[facility])[address] [place] [address] GLOMERULAR FILTRATION RATE ML/MIN/1.73 SQ M.PREDICTED 62.1 mL/min/1.73m*2 Normal >60.0 [facility] Comment on above: Result Comment: Calc ulation based on the Chronic Kidney Disease Epidemiology Collaboration (CKD-EPI) equation refit without adjustment for race Performed By: #### L [id number] ####Steamblaster: NURY DORADO ([phone])[facility])[address] [place] [address] [place] Glucose [Mass/Vol] 111 mg/dL Normal 82-115 [facility] Comment on above: Performed By: #### L [id number] ####Steamblaster: NURY DORADO ([phone])[facility])[address] [place] [address] Potassium [Moles/Vol] 4.3 mmol/L Normal 3.5-5.1 [facility] Comment on above: Result Comment: [facility] potassium values may be up to 0.5 mmol/L lower than serum values. Performed By: #### L [id number] ####Steamblaster: NURY DORADO ([phone])[facility])[address] [place] [address] Sodium [Moles/Vol] 139 mmol/L Normal 136-145 [facility] Comment on above: Performed By: #### L [id number] ####Steamblaster: NURY DORADO ([phone])[facility])[address] [place] [address] Urea nitrogen [Mass/Vol] 17 mg/dL Normal 9-23 [facility] Comment on above: Performed By: #### L [id number] ####Steamblaster: NURY DORADO ([phone])[facility])[address] [place] [address] Basic metabolic 1998 panelon 01-17-2025 Anion gap [Moles/Vol] 10 mmol/L 3 - 13 mmol/L [facility] Calcium [Mass/Vol] 9.3 mg/dL 8.8 - 10. 0 mg/dL [facility] Chloride [Moles/Vol] 106 mmol/L 98 - 10 7 mmol/L [facility] CO2 [Moles/Vol] 23 mmol/L 23 - 31 mmol/L [facility] Creatinine [Mass/Vol] 1.28 mg/dL High 0.72 - 1.25 mg/dL [facility] GFR/1.73 sq M.predicted (S/P/Bld) [Vol rate/Area] 62.1 mL/min - PINF [facility] Comment on above: Calculation based on the Chronic Kidney Disease Epidemiology Collaboration (CKD-EPI) equation refit without adjustment for race Glucose [Mass/Vol] 111 mg/dL 82 - 115 mg/dL [facility] Interpretation and review of laboratory results Abnormal [facility] Potassium [Moles/Vol] 4.3 mmol/L 3.5 - 5.1 mmol/L [facility] Comment on above: Plasma potassium luz marina ues may be up to 0.5 mmol/L lower than serum values. Sodium [Moles/Vol] 139 mmol/L 136 - 145 mmol/L [facility] Urea nitrogen [Mass/Vol] 17 mg/dL 9 - 23 mg/dL [facility] CBC W Auto Differential pane l (Bld)on 01-17-2025 Basophils (Bld) [#/Vol] 0 10*3/uL 0.0 - 0.2 10*3/uL [facility] Basophils/100 WBC (Bld) 0.4 % 0.0 - 2.0 % [facility] Eosinophils (Bld) [#/Vol] 0.1 10*3/uL 0.0 - 0.5 10*3/uL [facility] Eosinophils/100 WBC (Bld) 0.6 % 0.0 - 6.0 % [facility] Erythrocyte distribution width (RBC) [Ratio] 12.2 % 11.5 - 15.0 % [facility] Hematocrit (Bld) [Volume fraction] 38 % Low 40.0 - 52.0 % [facility] Hemoglobin (Bld) [Mass/Vol] 12.8 g/dL Low 13.0 - 18.0 g/dL [facility] Immature granulocytes (Bld) [#/Vol] 0.1 10*3/uL High NINF - 0.1 10*3/uL [facility] Immature granulocytes/100 WBC (Bld) 1 % 0.0 - 2.0 % [facility] Interpretation and review of laboratory results Abnormal [facility] Lymphocytes (Bld) [#/Vol] 1.6 10*3/uL 1.0 - 4.3 10*3/uL [facility] Lymphocytes/100 WBC (Bld) 18.9 % 15.0 - 45.0 % [facility] MCH (RBC) [Entitic mass] 29.7 pg 26.0 - 34.0 pg [facility] MCHC (RBC) [Mass/Vol] 33.7 % 30.5 - 36.0 % [facility] MCV (RBC) [Entitic vol] 88.2 fL 77.0 - 99.0 fL [facility] Monocytes (Bld) [#/Vol] 0.8 10*3/uL 0.0 - 0.9 10*3/uL [facility] Monocytes/100 WBC (Bld) 10 % 5.0 - 13.0 % [facility] Neutrophils (Bld) [#/Vol] 5.8 10*3/uL 1.8 - 7.5 10*3/uL [facility] Neutrophils/100 WBC (Bld) 69.1 % 38.0 - 82.0 % [facility] Nucleated RBC/100 WBC (Bld) [Ratio] 0 % [facility] Platelet mean volume (Bld) [Entitic vol] 9.3 fL 9.0 - 12.7 fL [facility] Platelets (Bld) [#/Vol] 170 10*3/uL 140 - 440 10*3/uL [facility] RBC (Bld) [#/Vol] 4.31 10*6/uL Low 4.40 - 5.90 10*6/uL [facility] WBC (Bld) [#/Vol] 8.4 10*3/uL 3.6 - 10.7 10*3/uL [facility] CBC WITH AUTO DIFFERENTIALon 01-17-2025 Basophils (Bld) [#/Vol] 0.0 10*3/uL Normal 0.0-0.2 [facility] Comment on above: Performed By: #### L [id number] ####Steamblaster: NURY [id number])[address] Basophils/100 WBC (Bld) 0.4 % Normal 0.0-2.0 [facility] Comment on above: Performed By: #### L [id number] ####Steamblaster: NURY [id number])[address] Eosinophils (Bld) [#/Vol] 0.1 10*3/uL Normal 0.0-0.5 [facility] Comment on above: Performed By: #### L [id number] ####Steamblaster: NURY [id number])[facility])[address] [place] [address] Eosinophils/100 WBC (Bld) 0.6 % Normal 0.0-6.0 [facility] Comment on above: Performed By: #### L [id number] ####Steamblaster: NURY DORADO ([id number])[facility])[address] [place] [address] Erythrocyte distribution width (RBC) [Ratio] 12.2 % Normal 11.5-15.0 [facility] Comment on above: Performed By: #### L [id number] ####Steamblaster: NURY DORADO ([id number])[facility])[address] [place] [address] Hematocrit (Bld) [Volume fraction] 38.0 % Low 40.0-52.0 [facility] Comment on above: Performed By: #### L [id number] ####Steamblaster: NURY DORADO ([phone])[facility])[address] [place] [address] Hemoglobin (Bld) [Mass/Vol] 12.8 g/dL Low 13.0-18.0 [facility] Comment on above: Performed By: #### L [id number] ####Steamblaster: NURY DORADO ([phone])[facility])[address] [place] [address] IMMATURE GRANS % 1.0 % Normal 0.0-2.0 [facility] Comment on above: Performed By: #### L [id number] ####Steamblaster: NURY DORADO ([phone])[facility])[address] [place] [address] IMMATURE GRANS ABSOLUTE 0.1 10*3/uL High <0.1 [facility] Comment on above: Performed By: #### L [id number] ####Steamblaster: NURY DORADO ([phone])[facility])[address] [place] [address] [place] Lymphocytes (Bld) [#/Vol] 1.6 10*3/uL Normal 1.0-4.3 [facility] Comment on above: Performed By: #### L [id number] ####Steamblaster: NURY DORADO ([phone])[facility])[address] [place] [address] Lymphocytes/100 WBC (Bld) 18.9 % Normal 15.0-45.0 [facility] Comment on above: Performed By: #### L [id number] ####Steamblaster: NURY DORADO ([phone])[facility])[address] [place] [address] MCH (RBC) [Entitic mass] 29.7 pg Normal 26.0-34.0 [facility] Comment on above: Performed By: #### L [id number] ####Steamblaster: NURY DORADO ([phone])[facility])[address] [place] [address] MCHC 33.7 % Normal 30.5-36.0 [facility] Comment on above: Performed By: #### L [id number] ####Steamblaster: NURY DORADO ([phone])[facility])[address] [place] [address] MCV (RBC) [Entitic vol] 88.2 fL Normal 77.0-99.0 [facility] Comment on above: Performed By: #### L [id number] ####Steamblaster: NURY DORADO ([phone])[facility])[address] [place] [address] Monocytes (Bld) [#/Vol] 0.8 10*3/uL Normal 0.0-0.9 [facility] Comment on above: Performed By: #### L [id number] ####Steamblaster: NURY DORADO ([phone])[facility])[address] [place] [address] Monocytes/100 WBC (Bld) 10.0 % Normal 5.0-13.0 [facility] Comment on above: Performed By: #### L [id number] ####Steamblaster: NURY DORADO ([phone])[facility])[address] [place] [address] NEUTROPHILS ABSOLUTE 5.8 10*3/uL Normal 1.8-7.5 [facility] Comment on above: Performed By: #### L [id number] ####Steamblaster: NURY DORADO ([phone])[facility])[address] [place] [address] Neutrophils/100 WBC (Bld) 69.1 % Normal 38.0-82.0 [facility] Comment on above: Performed By: #### L [id number] ####Steamblaster: NURY DORADO ([phone])[facility])[address] [place] [address] NRBC 0.0 /100 WBCs Normal 0.0-2.0 [facility] Comment on above: Performed By: #### L [id number] ####Steamblaster: NURY DORADO ([phone])[facility])[address] [place] [address] Platelet mean volume (Bld) [Entitic vol] 9.3 fL Normal 9.0-12.7 [facility] Comment on above: Performed By: #### L [id number] ####[place]: NURY DORADO ([phone])[facility])[address] [place] [address] [place] Platelets (Bld) [#/Vol] 170 10*3/uL Normal 140-440 [facility] Comment on above: Performed By: #### L [id number] ####[place]: NURY DORADO ([phone])[facility])[address] [place] [address] RBC (Bld) [#/Vol] 4.31 10*6/uL Low 4.40-5.90 [facility] Comment on above: Performed By: #### L [id number] ####[place]: NURY DORADO ([phone])[facility] ([facility])[address] [place] [address] WBC (Bld) [#/Vol] 8.4 10*3/uL Normal 3.6-10.7 [facility] Comment on above: Performed By: #### L [id number] ####[place]: NURY DORADO ([id number])[facility])[address] [place] [address] Consulton 01-17-2025 Consult ------ -- Attestation signed by Flor Barfield DO at 01/17/2025 6:09 PM Attending Physician's Attestation Date of assessment: 01/17/25 I have reviewed and discussed the patient and agree with the assessment and plan. Catheter draining yellow urine Having bladder spasms, known large prostate Plan outpatient follow up as previously discussed [place] home Please do not hesitate to reach out to the urology team with additional questions or concerns On-Call Finder --> [facility] Urology Page on-call resident(s) first Flor Barfield DO [facility] Urology -- Urology Inpatient Consultation 01/17/2025 HISTORY OF PRESENT ILLNESS: The patient is a 64 y.o.male who presented to [facility] ED. Past medical history as listed below. 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 Normal [facility] ECG 12-LEADon 01-17-2025 ECG 12-LEAD IMPRESSION: Sinus rhythm Supraventricular bigeminy Electronically Signed On 01-17-2025 19:49:22 EDT by Byron Yin Normal [facility] ED Nursing Noteon 01-17-2025 ED Nursing Note Emptied mendoza for 950ml. Normal [facility] ED Provider Noteon ED Provider Note [...] for clarification Byron Yin MD Acute Care [facility] Byron Yin MD 01/17/25 1334 [facility] ED Provider Note EMERGENCY DEPARTMENT ENCOUNTER Pt [...] Heart Rate (more content not included)... Normal [facility] No Panel Informationon 01-17 P [place] 52 degrees [facility] [place] Interval 157 ms [facility] QRS [place] 46 degrees [facility] QRSD Interval 98 ms [facility] QT Interval 388 ms [facility] QTC Interval 410 ms [facility] T Wave [place] 50 degrees [facility] Sinus rhythm Supraventricular bigeminy Electronically Signed On 01-17-2025 19:49:22 EDT by Byron Yin CV Byron Barth MD - 01/17/2025 IMPRESSION: Sinus rhythm Supraventricular bigeminy Electronically Signed On 01-17-2025 19:49:22 EDT by Byron Yin [facility] Vital signson 01-17-2025 Heart rate 67 /min bpm [facility] 36on 01-16-2025 36 Name of Caller: Melvin castro Contact Reason for Appointment: Annita jo Stephane was released from the hospital today to return home. Please call to schedule recommended biopsy or to advise. Office Name: Urology [facility] 36 Patient spouse camp d office to advise patient is currently admitted [facility]. Thursday he was unable to urinate. He went to the ED. They released him with a catheter. Thursday he went back to ED due to catheter being clogged with blood clots. Dr. Nava did a procedure to help stop the bleeding from the prostate. Patient remains on continuous bladder irrigation. Patient will possibly released to go home today or transferred to [facility]. Patient spouse will call office later today to advise. Patient would like to move forward with Biopsy as soon as possible. [facility] medical records should be faxed over from their office as well for Dr. Maradiaga. Normal [facility] Basic Metabolic Panelon 10-0 Creatinine Clr Calc Pharmacy 88.76 Normal [facility] Comment on above: Result Comment: PERF ORMED BY: [place] [address] PATHOLOGIST CHAINSTITCH HEMMER LUC ACOSTA M.D. Performed By: #### C BC, BMP #### [address] GFR/1.73 sq M.predicted MDRD (S/P/Bld) [Vol rate/Area] mL/min/{1.73_m2} Normal [facility] Comment on above: Performed By: #### C BC, BMP #### [address] Basophils [#/volume] in Bloo d by Automated countOrdered By: Augusto Duque on 01-15-2025 Basophils (Bld) [#/Vol] 0.0 10*3/uL Normal 0.0-0.2 [facility] Comment on above: Result Comment: PERF ORMED BY: [place] [address] PATHOLOGIST CHAINSTITCH HEMMER LUC ACOSTA M.D. Performed By: #### C BC, BMP #### [place] [address] [place] Basophils/100 leukocytes in Blood by Automated countOrdered By: Augusto Duque on 01-15-2025 Basophils/100 WBC (Bld) 0.4 % Normal . [facility] Comment on above: Performed By: #### C BC, BMP #### [place] [address] [place] Calcium [Mass/volume] in Ser um or PlasmaOrdered By: Augusto Duque on 01-15-2025 Calcium [Mass/Vol] 9.0 mg/dL Normal 8.6-10.3 [facility] Comment on above: Performed By: #### C BC, BMP #### [place] [address] [place] Carbon dioxide, total [Moles /volume] in Serum or PlasmaOrdered By: Augusto Duque on 01-15-2025 CO2 [Moles/Vol] 24.2 mmol/L Normal 21.0-31.0 [facility] Comment on above: Performed By: #### C BC, BMP #### [address] Chloride [Moles/volume] in S donta or PlasmaOrdered By: Augusto Duque on 01-15-2025 Chloride [Moles/Vol] 110 mmol/L High 98-107 [facility] Comment on above: Performed By: #### C BC, BMP #### [address] Complete Blood Count Auto Di ffon 01-15-2025 Mean Corpuscular HGB Conc 33.6 g/dL Normal 32.5-35.6 [facility] Comment on above: Performed By: #### C BC, BMP #### [address] NRBC% 0.1 /100{WBC} Normal 0-0.5 [facility] Comment on above: Performed By: #### C BC, BMP #### [address] White Blood Count 6.1 [CFU]/mL Normal 4.1-10.5 [facility] Comment on above: Performed By: #### C BC, BMP #### [address] Creatinine [Mass/volume] in Serum or PlasmaOrdered By: Augusto Duque on 01-15-2025 Creatinine [Mass/Vol] 1.19 mg/dL Normal 0.70-1.[address] [facility] Comment on above: Performed By: #### C BC, BMP #### [address] ECG 12 lead ECGon 01-15-2025 ECG 12 lead ECG [facility] [place] [address] [place] [address] Electrocardiograph Report Signed Patient: Stephane Toribio MR#: [id number] 700 : 1960 Acct:[id number] Age/Sex: 64 / M ADM Date: 01/14/25 Loc: Room: 6D8045-8 Type: ADM INOo Attending Dr: Augusto Duque [...] previous ECGs available Confirmed by Ravin Wilks ([id number]) on 01/15/2025 4:47:41 PM Referred By: Electronically Signed By: Ravin Wilks Transcribed By: MUS Signed By Ravin Wilks MD 01/15/25 1647 Normal [facility] Eosinophils [#/volume] in Bl ood by Automated countOrdered By: Augusto Duque on 01-15-2025 Eosinophils (Bld) [#/Vol] 0.1 10*3/uL Normal 0.0-0.45 [facility] Comment on above: Performed By: #### C JUAN CARLOS, BMP #### [place] [address] [place] Eosinophils/100 leukocytes i n Blood by Automated countOrdered By: Augusto Duque on 01-15-2025 Eosinophils/100 WBC (Bld) 1.1 % Normal . [facility] Comment on above: Performed By: #### C BC, BMP #### [facility] [address] [place] [address] [place] Erythrocyte distribution wid th [Ratio] by Automated countOrdered By: Augusto Duque on 01-15-2025 Erythrocyte distribution width (RBC) [Ratio] 12.7 % Normal 12.0-14.8 [facility] Comment on above: Performed By: #### C BC, BMP #### [facility] [address] [place] [address] [place] Erythrocytes [#/volume] in B lood by Automated countOrdered By: Augusto Duque on 01-15-2025 RBC (Bld) [#/Vol] 4.28 10*6/uL Normal 3.90-5.60 [facility] Comment on above: Performed By: #### C JUAN CARLOS, BMP #### [address] Glomerular filtration rate [ Volume Rate/Area] in Serum, Plasma or Blood by CreatinineOrdered By: Augusto Duque on 01-15-2025 Glomerular filtration rate [Volume Rate/Area] in Serum, Plasma or Blood by Creatinine > 60.0 mL/Min [facility] Glucose [Mass/volume] in Ser um or PlasmaOrdered By: Augusto Duque on 01-15-2025 Glucose [Mass/Vol] 117 mg/dL High 70-100 [facility] Comment on above: ADA recommended refe rence rangeRandom Glucose Reference Range is dependent on time and content of last meal. Glucose of more than 200 mg/dL in a nonstressed, ambulatory subject supports the diagnosis of Diabetes Mellitus. Result Comment: [place] [facility] Glucose Reference Range is dependent on time and content of last meal. Glucose of more than 200 mg/dL in a nonstressed, ambulatory subject supports the diagnosis of Diabetes Mellitus. ADA recommended reference range Performed By: #### C JUAN CARLOS, BMP #### [address] Hematocrit [Volume Fraction] of Blood by Automated countOrdered By: Augusto Duque on 01-15-2025 Hematocrit (Bld) [Volume fraction] 37.6 % Low 38.8-50.0 [facility] Comment on above: Performed By: #### C JUAN CARLOS, BMP #### [address] Hemoglobin [Mass/volume] in BloodOrdered By: Augusto Duque on 01-15-2025 Hemoglobin (Bld) [Mass/Vol] 12.7 g/dL Low 13.0-17.0 [facility] Comment on above: Performed By: #### C JUAN CARLOS, BMP #### [place] [address] [place] Leukocytes [#/volume] correc tonie for nucleated erythrocytes in Blood by Automated counOrdered By: Augusto Duque on 01-15-2025 WBC corrected for nucl RBC Auto (Bld) [#/Vol] 6.1 10*3/uL 4.1-10.5 [facility] Leukocytes [#/volume] in Blo od by Automated countOrdered By: Augusto Duque on 01-15-2025 WBC (Bld) [#/Vol] 6.1 10*3/uL Normal 4.1-10.5 [facility] Comment on above: Performed By: #### C BC, BMP #### [place] [address] [place] Lymphocytes [#/volume] in Bl ood by Automated countOrdered By: Augusto Duque on 01-15-2025 Lymphocytes (Bld) [#/Vol] 1.5 10*3/uL Normal 1.00-4.8 [facility] Comment on above: Performed By: #### C JUAN CARLOS, BMP #### [place] [address] [place] Lymphocytes/100 leukocytes i n Blood by Automated countOrdered By: Augusto Duque on 01-15-2025 Lymphocytes/100 WBC (Bld) 24.8 % Normal . [facility] Comment on above: Performed By: #### C BC, BMP #### [address] MCH [Entitic mass] by Automa tonie countOrdered By: Augusto Duque on 01-15-2025 MCH (RBC) [Entitic mass] 29.6 pg Normal 27.5-35.2 [facility] Comment on above: Performed By: #### C BC, BMP #### [address] MCHC Auto (RBC) [Mass/Vol]Or dered By: Augusto Duque on 01-15-2025 MCHC (RBC) [Mass/Vol] 33.6 g/dL 32.5-35.[address] [facility] MCV [Entitic volume] by Auto mated countOrdered By: Augusto Duque on 01-15-2025 MCV (RBC) [Entitic vol] 87.9 fL Normal 83.5-101 [facility] Comment on above: Performed By: #### C BC, BMP #### [facility] [address] [place] [address] [place] Monocytes [#/volume] in Bloo d by Automated countOrdered By: Augusto Duque on 01-15-2025 Monocytes (Bld) [#/Vol] 0.7 10*3/uL Normal 0.0-0.8 [facility] Comment on above: Performed By: #### C BC, BMP #### [facility] [address] [place] [address] [place] Monocytes/100 leukocytes in Blood by Automated countOrdered By: Augusto Duque on 01-15-2025 Monocytes/100 WBC (Bld) 10.7 % Normal . [facility] Comment on above: Performed By: #### C BC, BMP #### [place] [address] [place] Neutrophils [#/volume] in Bl ood by Automated countOrdered By: Augusto Duque on 01-15-2025 Neutrophils (Bld) [#/Vol] 3.8 10*3/uL Normal 1.8-7.7 [facility] Comment on above: Performed By: #### C BC, BMP #### [address] Neutrophils/100 leukocytes i n Blood by Automated countOrdered By: Augusto Duque on 01-15-2025 Neutrophils/100 WBC (Bld) 63.0 % Normal . [facility] Comment on above: Performed By: #### C BC, BMP #### [address] No Panel InformationOrdered By: Augusto Duque on 01-15-2025 Pharmacy Creatinine Clearance (Chem 88.76 [facility] Nucleated erythrocytes [Pres ence] in Blood by Automated countOrdered By: Augusto Duque on 01-15-2025 Nucleated RBC Auto Ql (Bld) 0.1 /100{WBC} 0-0.5 [facility] Platelet mean volume [Entiti c volume] in Blood by Automated countOrdered By: Augusto Duque on 01-15-2025 Platelet mean volume (Bld) [Entitic vol] 7.4 fL Normal 6.6-10.1 [facility] Comment on above: Performed By: #### C BC, BMP #### [facility] [address] Platelets [#/volume] in Bloo d by Automated countOrdered By: Augusto Duque on 01-15-2025 Platelets (Bld) [#/Vol] 156 10*3/uL Normal 150-450 [facility] Comment on above: Performed By: #### C BC, BMP #### [address] Potassium [Moles/volume] in Serum or PlasmaOrdered By: Augusto Duque on 01-15-2025 Potassium [Moles/Vol] 4.6 mmol/L Normal 3.5-5.[address] [facility] Comment on above: Performed By: #### C BC, BMP #### [address] Serum or plasma anion gap de terminationOrdered By: Augusto Duque on 01-15-2025 Anion gap [Moles/Vol] 10.4 mmol/L Normal 6.0-15.0 [facility] Comment on above: Performed By: #### C BC, BMP #### [address] Sodium [Moles/volume] in Ser um or PlasmaOrdered By: Augusto Duque on 01-15-2025 Sodium [Moles/Vol] 140 mmol/L Normal 136-145 [facility] Comment on above: Performed By: #### C BC, BMP #### [place] [address] [place] Urea nitrogen [Mass/volume] in Serum or PlasmaOrdered By: Augusto Duque on 01-15-2025 Urea nitrogen [Mass/Vol] 15 mg/dL Normal 7-25 [facility] Comment on above: Performed By: #### C BC, BMP #### [address] Alanine aminotransferase [En zymatic activity/volume] in Serum or PlasmaOrdered By: Roverto Wood on 01-14-2025 ALT [Catalytic activity/Vol] 21 U/L Normal 7-52 [facility] Comment on above: Performed By: #### C BC, PP, CMP #### [facility] [address] [place] [address] [place] Albumin [Mass/volume] in Ser um or Plasma by Bromocresol green (BCG) dye binding methoOrdered By: Roverto Wood on 01-14-2025 Albumin BCG dye [Mass/Vol] 4.1 g/dL 3.5-5.7 [facility] Alkaline phosphatase [Enzyma tic activity/volume] in Serum or PlasmaOrdered By: Roverto Wood on 01-14-2025 ALP [Catalytic activity/Vol] 60 U/L Normal 34-104 [facility] Comment on above: Performed By: #### C BC, PP, CMP #### [facility] [address] [place] [address] Appearance of UrineOrdered B y: Roverto Wood on 01-14-2025 Appearance (U) Cloudy Critically abnormal Clear [facility] Comment on above: Order Comment: Name Collection Type:: Mendoza Catheter Performed By: #### C UU, ADDONUAPLUS #### [facility] [address] [place] [address] [place] Aspartate aminotransferase [ Enzymatic activity/volume] in Serum or PlasmaOrdered By: Roverto Wood on 01-14-2025 AST [Catalytic activity/Vol] 20 U/L Normal 13-39 [facility] Comment on above: Performed By: #### C BC, PP, CMP #### [facility] [address] [place] [address] [place] Bacteria [Presence] in Urine by AutomatedOrdered By: Roverto Wood on 01-14-2025 Bacteria Auto Ql (U) None seen [HPF] None Seen [facility] Basophils [#/volume] in Bloo d by Automated countOrdered By: Roverto Wood on 01-14-2025 Basophils (Bld) [#/Vol] 0.0 10*3/uL Normal 0.0-0.2 [facility] Comment on above: Result Comment: PERF ORMED BY: [place] [address] PATHOLOGIST CHAINSTITCH HEMMER LUC ACOSTA M.D. Performed By: #### C BC, PP, CMP #### [facility] [address] [place] [address] Basophils/100 leukocytes in Blood by Automated countOrdered By: Roverto Wood on 01-14-2025 Basophils/100 WBC (Bld) 0.5 % Normal . [facility] Comment on above: Performed By: #### C BC, PP, CMP #### [address] Bilirubin Test strip Ql (U)O rdered By: Roverto Wood on 01-14-2025 Bilirubin Ql (U) Negative Negative [facility] Bilirubin.total [Mass/volume ] in Serum or PlasmaOrdered By: Roverto Wood on 01-14-2025 Bilirubin [Mass/Vol] 0.6 mg/dL Normal 0.3-1.0 [facility] Comment on above: Performed By: #### C BC, PP, CMP #### [address] abdomen pelvis w conon CT abdomen pelvis w con [facility] [address] CT Scan Report Signed Patient: Stephane Toribio MR#: [id number] 700 : 1960 Acct:[id number] Age/Sex: 64 / M ADM Date: 01/14/25 Loc: ER Room: Type: [facility] ER Attending Dr: Copies to: Roverto [...] 5:00 PM Dictation Location: [id number] Transcribed By: [facility] 01/14/25 1700 Dictated By: Reji Yao Jr, DO 01/14/25 1653 Signed By: 01/14/25 1700 Normal [facility] Calcium [Mass/volume] in Ser um or PlasmaOrdered By: Roverto Wood on 01-14-2025 Calcium [Mass/Vol] 9.1 mg/dL Normal 8.6-10.3 [facility] Comment on above: Performed By: #### C BC, PP, CMP #### [facility] [address] [place] [address] [place] Carbon dioxide, total [Moles /volume] in Serum or PlasmaOrdered By: Roverto Wood on 01-14-2025 CO2 [Moles/Vol] 24.8 mmol/L Normal 21.0-31.0 [facility] Comment on above: Performed By: #### C BC, PP, CMP #### [facility] [address] [place] [id number] [place] Chloride [Moles/volume] in S donta or PlasmaOrdered By: Roverto Wood on 01-14-2025 Chloride [Moles/Vol] 109 mmol/L High 98-107 [facility] Comment on above: Performed By: #### C BC, PP, CMP #### [address] Coagulation Profileon 2024 aPTT Coag (Bld) [Time] 29.6 s Normal 25.1-36.5 [facility] Comment on above: Result Comment: A matocrit value greater than 55% may lead to inaccurate results in coagulation testing. Patients having hematocrit values >55% require a special collection tube for coagulation studies. Please contact the laboratory at [phone] for redraw instructions. PERFORMED BY: [place] [address] PATHOLOGIST CHAINSTITCH HEMMER LUC ACOSTA M.D. Performed By: #### C JUAN CARLOS PP, CMP #### [address] Color of Urine by AutoOrdere d By: Roverto Wood on 01-14-2025 Color (U) Light-red Critically abnormal Yellow [facility] Comment on above: Order Comment: Name Collection Type:: Mendoza Catheter Performed By: #### C UU, ADDONUAPLUS #### [address] Complete Blood Count Auto Di ffon 01-14-2025 Mean Corpuscular HGB Conc 34.2 g/dL Normal 32.5-35.6 [facility] Comment on above: Performed By: #### C BC, PP, CMP #### [place] [address] [place] Monocytes/100 WBC (Bld) 18.53 % Normal 0.00-20.00 [facility] Comment on above: Performed By: #### C BC, PP, CMP #### [place] [address] [place] NRBC% 0.3 /100{WBC} Normal 0-0.5 [facility] Comment on above: Performed By: #### C BC, PP, CMP #### [address] White Blood Count 6.1 [CFU]/mL Normal 4.1-10.5 [facility] Comment on above: Performed By: #### C BC, PP, CMP #### [address] Comprehensive Metabolic Pane henny 01-14-2025 Albumin [Mass/Vol] 4.1 g/dL Normal 3.5-5.7 [facility] Comment on above: Performed By: #### C BC, PP, CMP #### [address] Creatinine Clr Calc Pharmacy 78.29 Normal [facility] Comment on above: Result Comment: PERF ORMED BY: [place] [address] PATHOLOGIST CHAINSTITCH HEMMER LUC ACOSTA M.D. Performed By: #### C BC, PP, CMP #### [address] GFR/1.73 sq M.predicted MDRD (S/P/Bld) [Vol rate/Area] 58.266 mL/min/{1.73_m2} Normal [facility] Comment on above: Performed By: #### C BC, PP, CMP #### [address] Creatinine [Mass/volume] in Serum or PlasmaOrdered By: Roverto Wood on 01-14-2025 Creatinine [Mass/Vol] 1.35 mg/dL High 0.70-1.[address] [facility] Comment on above: Performed By: #### C BC, PP, CMP #### [place] [address] [place] Dipstick and Microscopicon 1 Bacteria,Urine None Seen Normal None Seen [facility] Comment on above: Order Comment: Name Collection Type:: Mendoza Catheter Performed By: #### C UU, ADDONUAPLUS #### [place] [address] [place] Bilirubin,Urine Negative Normal Negative [facility] Comment on above: Order Comment: Name Collection Type:: Mendoza Catheter Performed By: #### C UU, ADDONUAPLUS #### [address] Glucose Ql (U) Normal Normal Normal [facility] Comment on above: Order Comment: Name Collection Type:: Mendoza Catheter Performed By: #### C UU, ADDONUAPLUS #### [address] Hyaline Casts,Urine None Normal 0-8 [facility] Comment on above: Order Comment: Name Collection Type:: Mendoza Catheter Performed By: #### C UU, ADDONUAPLUS #### [address] Mucus,Urine Rare Normal [facility] Comment on above: Order Comment: Name Collection Type:: Mendoza Catheter Result Comment: PERF ORMED BY: [place] [address] PATHOLOGIST CHAINSTITCH HEMMER LUC ACOSTA M.D. Performed By: #### C UU, ADDONUAPLUS #### [address] Nitrite,Urine Negative Normal Negative [facility] Comment on above: Order Comment: Name Collection Type:: Mendoza Catheter Performed By: #### C UU, ADDONUAPLUS #### [address] Occult Blood,Urine 3+ Normal Negative [facility] Comment on above: Order Comment: Name Collection Type:: Mendoza Catheter Result Comment: PERF ORMED BY: [place] [address] PATHOLOGIST CHAINSTITCH HEMMER LUC ACOSTA M.D. Performed By: #### C UU, ADDONUAPLUS #### [address] RBC,Urine Innumerable Normal 0-4 [facility] Comment on above: Order Comment: Name Collection Type:: Mendoza Catheter Performed By: #### C UU, ADDONUAPLUS #### [address] Specificy [place],Urine 1.006 Normal 1.00 1-1.03 0 [facility] Comment on above: Order Comment: Name Collection Type:: Mendoza Catheter Performed By: #### C UU, ADDONUAPLUS #### [address] Squamous Epithelial Cell,Urine 1-2 Normal 0-2 [facility] Comment on above: Order Comment: Name Collection Type:: Mendoza Catheter Performed By: #### C UU, ADDONUAPLUS #### [address] Urobilinogen,Urine Normal Normal Normal [facility] Comment on above: Order Comment: Name Collection Type:: Mendoza Catheter Performed By: #### C UU, ADDONUAPLUS #### [address] WBC CLUMP, Urine Many Normal None Seen [facility] Comment on above: Order Comment: Name Collection Type:: Mendoza Catheter Performed By: #### C UU, ADDONUAPLUS #### [place] [address] [place] WBC,Urine Innumerable Normal 0-4 [facility] Comment on above: Order Comment: Name Collection Type:: Mendoza Catheter Performed By: #### C UU, ADDONUAPLUS #### [place] [address] [place] Eosinophils [#/volume] in Bl ood by Automated countOrdered By: Roverto Wood on 01-14-2025 Eosinophils (Bld) [#/Vol] 0.0 10*3/uL Normal 0.0-0.45 [facility] Comment on above: Performed By: #### C BC, PP, CMP #### [facility] [address] [place] [address] [place] Eosinophils/100 leukocytes i n Blood by Automated countOrdered By: Roverto Wood on 01-14-2025 Eosinophils/100 WBC (Bld) 0.6 % Normal . [facility] Comment on above: Performed By: #### C JUAN CARLOS, PP, CMP #### [address] Epithelial cells.squamous [# /area] in Urine sediment by Automated countOrdered By: Roverto Wood on 01-14-2025 Epithelial cells.squamous Auto (Urine sed) [#/Area] 1-2 [HPF] 0-2 [facility] Erythrocyte distribution wid th [Ratio] by Automated countOrdered By: Roverto Wood on 01-14-2025 Erythrocyte distribution width (RBC) [Ratio] 12.6 % Normal 12.0-14.8 [facility] Comment on above: Performed By: #### C JUAN CARLOS, PP, CMP #### [address] Erythrocytes [#/area] in Uri ne sediment by Automated countOrdered By: Roverto Wood on 01-14-2025 RBC Auto (Urine sed) [#/Area] Innumerable [HPF] High 0-4 [facility] Erythrocytes [#/volume] in B lood by Automated countOrdered By: Roverto Wood on 01-14-2025 RBC (Bld) [#/Vol] 4.43 10*6/uL Normal 3.90-5.60 [facility] Comment on above: Performed By: #### C JUAN CARLOS, PP, CMP #### [address] Glomerular filtration rate [ Volume Rate/Area] in Serum, Plasma or Blood by CreatinineOrdered By: Roverto Wood on 01-14-2025 Glomerular filtration rate [Volume Rate/Area] in Serum, Plasma or Blood by Creatinine 58.266 mL/Min [facility] Glucose [Mass/volume] in Ser um or PlasmaOrdered By: Roverto Wood on 01-14-2025 Glucose [Mass/Vol] 117 mg/dL High 70-100 [facility] Comment on above: ADA recommended refe rence rangeRandom Glucose Reference Range is dependent on time and content of last meal. Glucose of more than 200 mg/dL in a nonstressed, ambulatory subject supports the diagnosis of Diabetes Mellitus. Result Comment: [facility] Glucose Reference Range is dependent on time and content of last meal. Glucose of more than 200 mg/dL in a nonstressed, ambulatory subject supports the diagnosis of Diabetes Mellitus. ADA recommended reference range Performed By: #### C JUAN CARLOS, PP, CMP #### [address] Glucose [Mass/volume] in Uri ne by Test stripOrdered By: Roverto Wood on 01-14-2025 Glucose Test strip (U) [Mass/Vol] Normal mg/dL Normal [facility] Hematocrit [Volume Fraction] of Blood by Automated countOrdered By: Roverto Wood on 01-14-2025 Hematocrit (Bld) [Volume fraction] 38.3 % Low 38.8-50.0 [facility] Comment on above: Performed By: #### C JUAN CARLOS, PP, CMP #### [address] Hemoglobin Test strip Ql (U) Ordered By: Roverto Wood on 01-14-2025 Hemoglobin Ql (U) 3+ High Negative [facility] Hemoglobin [Mass/volume] in BloodOrdered By: Roverto Wood on 01-14-2025 Hemoglobin (Bld) [Mass/Vol] 13.1 g/dL Normal 13.0-17.0 [facility] Comment on above: Performed By: #### C JUAN CARLOS, PP, CMP #### [address] Hyaline casts [#/area] in Ur ine sediment by Automated countOrdered By: Roverto Wood on 01-14-2025 Hyaline casts Auto (Urine sed) [#/Area] None [LPF] 0-8 [facility] INR in Platelet poor plasma by Coagulation assayOrdered By: Roverto Wood on 01-14-2025 INR Coag (PPP) [Relative time] 1.0 {INR} Normal [facility] Comment on above: INR Therapeutic Rang [...] By: #### C BC, PP, CMP #### [facility] [address] [place] [address] [place] Ketones [Presence] in Urine by Test stripOrdered By: Roverto Wood on 01-14-2025 Ketones Ql (U) Negative Normal Negative [facility] Comment on above: Order Comment: Name Collection Type:: Mendoza Catheter Performed By: #### C UU, ADDONUAPLUS #### [facility] [address] [place] [address] [place] Leukocyte clumps [Presence] in Urine by AutomatedOrdered By: Roverto Wood on 01-14-2025 Leukocyte clumps Auto Ql (U) Many [LPF] High None Seen [facility] Leukocyte esterase [Presence ] in Urine by Test stripOrdered By: Roverto Wood on 01-14-2025 Leukocyte esterase Test strip Ql (U) 2+ Normal Negative [facility] Comment on above: Order Comment: Name Collection Type:: Mendoza Catheter Performed By: #### C UU, ADDONUAPLUS #### [facility] [address] [place] [address] [place] Leukocytes [#/area] in Urine sediment by Automated countOrdered By: Roverto Wood on 01-14-2025 WBC Auto (Urine sed) [#/Area] Innumerable [HPF] High 0-4 [facility] Leukocytes [#/volume] correc tonie for nucleated erythrocytes in Blood by Automated counOrdered By: Roverto Wood on 10-04-2025 WBC corrected for nucl RBC Auto (Bld) [#/Vol] 6.1 10*3/uL 4.1-10.5 [facility] Leukocytes [#/volume] in Blo od by Automated countOrdered By: Roverto Wood on 01-14-2025 WBC (Bld) [#/Vol] 6.1 10*3/uL Normal 4.1-10.5 [facility] Comment on above: Performed By: #### C BC, PP, CMP #### [facility] [address] Lymphocytes [#/volume] in Bl ood by Automated countOrdered By: Roverto Wood on 01-14-2025 Lymphocytes (Bld) [#/Vol] 1.4 10*3/uL Normal 1.00-4.8 [facility] Comment on above: Performed By: #### C BC, PP, CMP #### [address] Lymphocytes/100 leukocytes i n Blood by Automated countOrdered By: Roverto Wood on 01-14-2025 Lymphocytes/100 WBC (Bld) 22.8 % Normal . [facility] Comment on above: Performed By: #### C BC, PP, CMP #### [address] MCH [Entitic mass] by Automa tonie countOrdered By: Roverto Wood on 01-14-2025 MCH (RBC) [Entitic mass] 29.6 pg Normal 27.5-35.2 [facility] Comment on above: Performed By: #### C BC, PP, CMP #### [address] MCHC Auto (RBC) [Mass/Vol]Or dered By: Roverto Wood on 01-14-2025 MCHC (RBC) [Mass/Vol] 34.2 g/dL 32.5-35.[address] [facility] MCV [Entitic volume] by Auto mated countOrdered By: Roverto Wood on 01-14-2025 MCV (RBC) [Entitic vol] 86.6 fL Normal 83.5-101 F [facility] Comment on above: Performed By: #### C BC, PP, CMP #### [facility] [address] [place] [address] [place] Monocyte distribution width [Entitic volume] in Blood by AutomatedOrdered By: Roverto Wood on 01-14-2025 Monocyte distribution width Auto (Bld) [Entitic vol] 18.53 % 0.00-20.00 [facility] Monocytes [#/volume] in Bloo d by Automated countOrdered By: Roverto Wood on 01-14-2025 Monocytes (Bld) [#/Vol] 0.8 10*3/uL Normal 0.0-0.8 [facility] Comment on above: Performed By: #### C BC, PP, CMP #### [facility] [address] [place] [address] [place] Monocytes/100 leukocytes in Blood by Automated countOrdered By: Roverto Wood on 01-14-2025 Monocytes/100 WBC (Bld) 12.4 % Normal . F [facility] Comment on above: Performed By: #### C BC, PP, CMP #### [address] Mucus [Presence] in Urine by AutomatedOrdered By: Roverto Wood on 01-14-2025 Mucus Auto Ql (U) Rare [LPF] [facility] Neutrophils [#/volume] in Bl ood by Automated countOrdered By: Roverto Wood on 01-14-2025 Neutrophils (Bld) [#/Vol] 3.9 10*3/uL Normal 1.8-7.7 [facility] Comment on above: Performed By: #### C BC, PP, CMP #### [facility] [address] [place] [address] [place] Neutrophils/100 leukocytes i n Blood by Automated countOrdered By: Roverto Wood on 01-14-2025 Neutrophils/100 WBC (Bld) 63.7 % Normal . [facility] Comment on above: Performed By: #### C BC, PP, CMP #### [place] [address] [place] Nitrite Test strip Ql (U)Ord ered By: Roverto Wood on 01-14-2025 Nitrite Ql (U) Negative Negative [facility] No Panel InformationOrdered By: Roverto Wood on 01-14-2025 Pharmacy Creatinine Clearance (Chem 78.29 [facility] Nucleated erythrocytes [Pres ence] in Blood by Automated countOrdered By: Roverto Wood on 01-14-2025 Nucleated RBC Auto Ql (Bld) 0.3 /100{WBC} 0-0.5 [facility] Platelet mean volume [Entiti c volume] in Blood by Automated countOrdered By: Roverto Wood on 01-14-2025 Platelet mean volume (Bld) [Entitic vol] 7.2 fL Normal 6.6-10.1 [facility] Comment on above: Performed By: #### C BC, PP, CMP #### [facility] [address] [place] [address] [place] Platelets [#/volume] in Bloo d by Automated countOrdered By: Roverto Wood on 01-14-2025 Platelets (Bld) [#/Vol] 160 10*3/uL Normal 150-450 [facility] Comment on above: Performed By: #### C BC, PP, CMP #### [facility] [address] [place] [address] [place] Potassium [Moles/volume] in Serum or PlasmaOrdered By: Roverto Wood on 01-14-2025 Potassium [Moles/Vol] 4.2 mmol/L Normal 3.5-5.[address] [facility] Comment on above: Performed By: #### C BC, PP, CMP #### [facility] [address] [place] [address] [place] Protein [Mass/volume] in Ser um or PlasmaOrdered By: Roverto Wood on 01-14-2025 Protein [Mass/Vol] 6.6 g/dL Normal 6.4-8.9 [facility] Comment on above: Performed By: #### C BC, PP, CMP #### [facility] [address] [place] [address] [place] Protein [Mass/volume] in Uri ne by Test stripOrdered By: Roverto Wood on 01-14-2025 Protein (U) [Mass/Vol] 30 mg/dL Normal Negative [facility] Comment on above: Order Comment: Name Collection Type:: Mendoza Catheter Performed By: #### C UU, ADDONUAPLUS #### [address] Prothrombin time (PT)Ordered By: Roverto Wood on 01-14-2025 PT Coag (PPP) [Time] 11.8 s Normal 9.0-12.9 [facility] Comment on above: A hematocrit value g reater than 55% may lead to inaccurate results in coagulation testing. Patients having hematocrit values >55% require a special collection tube for coagulation studies. Please contact the laboratory at [phone] for redraw instructions. Result Comment: A he matocrit value greater than 55% may lead to inaccurate results in coagulation testing. Patients having hematocrit values >55% require a special collection tube for coagulation studies. Please contact the laboratory at [phone] for redraw instructions. Performed By: #### C BC, PP, CMP #### [address] Serum globulin measurement b y calculation (mass/volume)Ordered By: Roverto Wood on 01-14-2025 Globulin (S) [Mass/Vol] 2.5 g/dL Normal [facility] Comment on above: Performed By: #### C BC, PP, CMP #### [address] Serum or plasma albumin/glob ulin mass ratioOrdered By: Roverto Wood on 01-14-2025 Albumin/Globulin [Mass ratio] 1.6 {ratio} Normal [facility] Comment on above: Performed By: #### C BC, PP, CMP #### [address] Serum or plasma anion gap de terminationOrdered By: Roverto Wood on 01-14-2025 Anion gap [Moles/Vol] 9.4 mmol/L Normal 6.0-15.[address] [facility] Comment on above: Performed By: #### C JUAN CARLOS, PP, CMP #### [facility] [address] [place] [address] [place] Sodium [Moles/volume] in Ser um or PlasmaOrdered By: Rovertosameer Wood on 01-14-2025 Sodium [Moles/Vol] 139 mmol/L Normal 136-145 [facility] Comment on above: Performed By: #### C JUAN CARLOS, PP, CMP #### [facility] [address] Specific gravity Test strip (U) [Rel density]Ordered By: Roverto Wood on 01-14-2025 Specific gravity (U) [Rel density] 1.006 1.001-1.03 0 [facility] UA [id number] 01-14-2025 UA Bacteria None [facility] Comment on above: Order Comment: Urina lysis Microscopic order added on by [employer] Expert Rules system. Performed By: #### 1 [id number], [id number] #### [facility] (DEFAULT) [address] [place] [address] UA RBC 30-40 Normal [facility] Comment on above: Order Comment: Urina lysis Microscopic order added on by [employer] Rules system. Performed By: #### 1 [id number], [id number] #### [facility] (DEFAULT) [address] [place] [address] UA Squam Epi None Seen [facility] Comment on above: Order Comment: Urina lysis Microscopic order added on by [employer] Rules system. Performed By: #### 1 [id number], [id number] #### [facility] (DEFAULT) [address] [place] [address] UA WBC None Seen [facility] Comment on above: Order Comment: Urina lysis Microscopic order added on by [employer] Rules system. Performed By: #### 1 [id number], [id number] #### [facility] (DEFAULT) [address] [place] [address] UA w Culture if Ind Standard on 01-14-2025 Breakpoint UA [facility] Comment on above: Performed By: #### 1 [id number], [id number] #### [facility] (DEFAULT) [address] [place] [address] Color (U) Yellow Normal [facility] Comment on above: Performed By: #### 1 [id number], [id number] #### [facility] (DEFAULT) [address] [place] [address] Culture? Not Indicated Invalid Interpretation Code [facility] Comment on above: Result Comment: Resu lt created by rule GL_MAGR_ADD_UA_CULT Result created by rule GL_MAGR_ADD_UA_CULT Result created by rule GL_MAGR_ADD_UA_CULT1 Performed By: #### 1 [id number], [id number] #### [facility] (DEFAULT) [address] [place] [address] Glucose (U) [Mass/Vol] Negative [facility] Comment on above: Performed By: #### 1 [id number], [id number] #### [facility] (DEFAULT) [address] [place] [address] Ketones Ql (U) Negative [facility] Comment on above: Performed By: #### 1 [id number], [id number] #### [facility] (DEFAULT) [address] [place] [address] Micro? Indicated Invalid Interpretation Code [facility] Comment on above: Result Comment: Resu lt created by rule GL_MAGR_ADD_UA_MICRO Performed By: #### 1 [id number], [id number] #### [facility] (DEFAULT) [address] [place] [address] UA Bilirubin Negative Normal [facility] Comment on above: Performed By: #### 1 [id number], [id number] #### [facility] (DEFAULT) [address] [place] [address] UA Blood LARGE Abnormal NEGATIVE [facility] Comment on above: Performed By: #### 1 [id number], [id number] #### [facility] (DEFAULT) [address] [place] [address] UA Clarity SL CLOUDY Abnormal CLEAR [facility] Comment on above: Performed By: #### 1 [id number], [id number] #### [facility] (DEFAULT) [address] [place] [address] UA Leuk Est Negative Normal NEGATIVE [facility] Comment on above: Performed By: #### 1 [id number], [id number] #### [facility] (DEFAULT) [address] [place] [address] UA Nitrite Negative Normal NEGATIVE [facility] Comment on above: Performed By: #### 1 [id number], [id number] #### [facility] (DEFAULT) [address] [place] [address] UA pH 6.0 Normal 5-8 [facility] Comment on above: Performed By: #### 1 [id number], [id number] #### [facility] (DEFAULT) [address] [place] [address] UA Protein Negative Normal NEGATIVE [facility] Comment on above: Performed By: #### 1 [id number], [id number] #### [facility] (DEFAULT) [address] [place] [address] UA Spec Grav 1.015 Normal 1.001-1.[address] [place] [address] Comment on above: Performed By: #### 1 [id number], [id number] #### [facility] (DEFAULT) [address] [place] [address]367 UA Urobilinogen 0.2 mg/dL Normal 0.2-1.0 [facility] Comment on above: Performed By: #### 1 [id number], [id number] #### [facility] (DEFAULT) [address] [place] [address] Urine Source Catheter Normal [facility] Comment on above: Performed By: #### 1 [id number], [id number] #### [facility] (DEFAULT) [address] [place] [address] Urea nitrogen [Mass/volume] in Serum or PlasmaOrdered By: Roverto Wood on 01-14-2025 Urea nitrogen [Mass/Vol] 20 mg/dL Normal 7-25 [facility] Comment on above: Performed By: #### C BC, PP, CMP #### [facility] [address] [place], [place] [address] [facility] Urine Cultureon 01-14-2025 Bacteria identified Cx Nom (U) No Growth 2 Days PERFORMED BY: [place] [address] PATHOLOGIST CHAINSTITCH HEMMER LUC Kern [facility] Comment on above: Performed By: #### C UU, ADDONUAPLUS #### [facility] [address] [place], [place] [address] [facility] Urine cultureOrdered By: Norah Wood on 01-14-2025 Bacteria identified Cx Nom (U) No Growth 2 Days [facility] Urobilinogen Test strip (U) [Mass/Vol]Ordered By: Roverto Wood on 01-14-2025 Urobilinogen (U) [Mass/Vol] Normal mg/dL Normal [facility] aPTT in Platelet poor plasma by Coagulation assayOrdered By: Rovreto Wood on 01-14-2025 aPTT Coag (PPP) [Time] 29.6 s 25.1-36.5 [facility] Comment on above: A hematocrit value g reater than 55% may lead to inaccurate results in coagulation testing. Patients having hematocrit values >55% require a special collection tube for coagulation studies. Please contact the laboratory at [phone] for redraw instructions. pH of Urine by Test stripOrd ered By: Roverto Wood on 01-14-2025 pH (U) 6.0 [pH] Normal 5.0-9.0 [facility] Comment on above: Order Comment: Name Collection Type:: Mendoza Catheter Performed By: #### C UU, ADDONUAPLUS #### [facility] [address] [place], [place] [address] [facility] 36on 01-13-2025 36 Pt agrees to OV on 02/10/[address] Maradiaga in [facility] ED Note - Physicianon 2024 ED Note [...] symptoms of discom (more content not included)... [facility] 36on 01-12-2025 36 The patient's prosta te is markedly enlarged. There are several areas of irregularity within the prostate. I would like to see the patient in the office so that I can review these images with him and make some plans moving forward [place] [address]on 01-06-2025 36 Pt has been added to MRI list. [facility] 36 Pt is scheduled for 01/10 at 1:[address] 01-05-2025 36 Error [place] [address] I have started the [facility] for the MRI to see if we can move WENDY appt before jan.11 [facility] 36 Patient called in ad vising returning call to [place]. Patient made aware of MRI date, time, location. Patient again stated that starting 01/11/25 will have Medicare A and B. Patient has not yet received card. [facility] 36 UROLOGY MRI QUESTION NAIRE: Patients time [...] Encounters: 01/01/24 (!) 330 lb (150 kg) [facility] 36 MRI ordered [facility] 36 Pt is agreeable to prostate MRI see Cloudy[employer]fr messages [place] [address]on 01-04-2025 36 LM to return call or see [facility] for test result. [place] [address] 01-03-2025 36 PSA 9.530 - lower th an April, but still higher than 2023 I feel that prostate MRI is next step. If he agrees, then I will place order [facility] Office Visiton 01-02-2025 Follow-up visit [id number] Antoine Toribio 1960 M Date Provider Department Center 01/02/2025 [id number] MARADIAGA [facility] URO None Family History Problem Relation Age of Onset Arthritis Mother Arthritis Father Hearing loss Father Family Status - Relation Status Age at Mother Alive Father Alive Level of Service:85392 [place] OFFICE/OUTPATIENT ESTABLISHED MOD MDM 30 MIN Reason for Visit and Comments: Other [0] - Annual follow up, bph, would like to discuss testosterone for lethargy Sometimes where I can't get anything out, unsure of emptying, dribbling stream Nocturia x1-2, denies hematuria and dysuria Normal [facility] Progress Noteon 01-02-2025 Progress Note Reji [...] Nocturia Freq (more content not included)... Normal [facility] Culture, Anaerobic Any Sourc dee 12-26-2024 CUAN List Antibiotics Las t 48 Hours? NONE List Antibiotics to be Started? GENTAMYCIN TOPICAL No anaerobic bacteria isolated. Normal [facility] Comment on above: Performed By: #### M 100.3000, M100.2000, M100.4001 #### [facility] [address] [place], [address] Wound Cultureon 12-25-2024 WC List Antibiotics Las [...] R Vancomycin Islt MARLEN <=0.5 S Normal [facility] Comment on above: Performed By: #### M 100.3000, M100.2000, M100.4001 #### [facility] [address] [place], [address] Anaerobic cultureOrdered By: Yola Sepulveda on 12-22-2024 Bacteria identified Anaer cx Nom (Unsp spec) No anaerobic bacteria isolated. [facility] Gram Stainon 12-22-2024 GS List Antibiotics Las t 48 Hours? NONE List Antibiotics to be Started? GENTAMYCIN TOPICAL Gram Stain No organisms seen No cells seen Normal [facility] Comment on above: Performed By: #### M 100.3000, M100.2000, M100.4001 #### [facility] [address] [place], [address] Gram stainOrdered By: Aidan Sepulveda on 12-22-2024 Microscopic observation Gram stain Nom (Unsp spec) [facility] Wound Ctr History AND Physic cam 12-01-2024 Wound Ctr History & Physical [facility] [address] [place] [address] H P Exam - Wound Care 12/01/24 1408 MR#: [id number] Acct: [id number] Name: STEPHANE TORIBIO Rep #: [id number] : 1960 64 From: Yola STEVENSON PCP: [...] healed in order for [facility] to proceed. [facility] Home Medications ???Medication ???Instructions ???Recorded ???Last [...] BID 11/26/17 Unknown His tory omega-3 1,050 do-wow-wvb-dpa-fish 1 ea PO DAILY 11/26/17 Unknown Hi story oil 1,200 mg capsule ([place]-3 2100) sertraline 25 mg tablet (Zoloft) 25 [...] edges of (more content not included)... Normal [facility] CT CARDIAC SCORING WO IV CON TRASTon 11-03-2024 CT CARDIAC SCORING WO IV CONTRAST Interpreted By: Kenyon Marquez, STUDY: CT CARDIAC SCORING WO IV CONTRAST; 11/03/2024 7:29 am INDICATION: Signs/Symptoms:SEE DX. ,E78.00 Pure hypercholesterolemia, unspecified COMPARISON: None. ACCESSION NUMBER(S): [id number] ORDERING CLINICIAN: ABIMAEL ELIZABETH TECHNIQUE: Using prospective [...] coronary heart disease events. According to the [place] [employer] Clinical Expert Consensus [...] Kenyon Marquez 11/04/2024 12:56 PM Dictation workstation: [id number] [facility] Culture, Anaerobic Any Sourc dee 10-31-2024 CUAN No growth in 5 days. Normal [facility] Comment on above: Performed By: #### M 100.4001, M100.2000, M100.3000 ####[facility] [address] [place], [address] Gram Stainon 10-27-2024 GS Gram Stain No organisms seen No cells seen Normal [facility] Comment on above: Performed By: #### M 100.4001, M100.2000, M100.3000 #### [facility] [address] [place], [address] Wound Cultureon 10-27-2024 WC No growth aerobically. Normal [facility] Comment on above: Performed By: #### M 100.4001, M100.2000, M100.3000 ####[facility] [address] [place], [address] Anaerobic cultureOrdered By: Chacha Dunham on 10-26-2024 Bacteria identified Anaer cx Nom (Unsp spec) No growth in 5 days. [facility] Gram stainOrdered By: Chacha gomez on 10-26-2024 Microscopic observation Gram stain Nom (Unsp spec) [facility] Wound Ctr History AND Physic cam 10-05-2024 Wound Ctr History & Physical [facility] [address] [place] [address] H P Exam - Wound Care 10/05/24 1210 MR#: [id number] Acct: [id number] Name: STEPHANE TORIBIO Adamaris Rep #: [id number] : 1960 63 From: Chacha Dunham NP DIRECTOR CLINICAL APPLICATIONS-C PCP: Dr. Abimael Eilzabeth, DO Status:REG RCR Location: History of Present [...] visit we can only look and see. [facility] Home Medications ???Medication ???Instructions ???Recorded ???Last Taken [...] BID 11/26/17 Unknown His tory omega-3 1,050 gu-cxo-mym-dpa-fish 1 ea PO DAILY 11/26/17 Unknown Hi story oil 1,200 mg capsule ([place]-3 2100) sertraline 25 mg tablet (Zoloft) 25 [...] no limitat (more content not included)... Normal [facility] Absolute lymphocyte countOrd ered By: Suleiman Toribio on 08-25-2024 Lymphocytes Auto (Unsp spec) [#/Vol] 2.11 10*3/uL 0.83-4.51 [facility] Absolute neutrophil countOrd ered By: Suleiman Toribio on 08-25-2024 Neutrophils (Bld) [#/Vol] 2.8 10*3/uL 2.0-7.7 [facility] Anion gap in Serum or Plasma Ordered By: Suleiman Toribio on 08-25-2024 Anion gap [Moles/Vol] 11 mmol/L 08-25 [facility] Automated lymphocyte count a s percentage of total leukocytesOrdered By: Suleiman Toribio on 08-25-2024 Lymphocytes/100 WBC Auto (Unsp spec) 38.8 % [facility] BUN/creatinine ratioOrdered By: Suleiman Toribio on 08-25-2024 Urea nitrogen/Creatinine [Mass ratio] 15.6 mg/mg - [facility] Basic Metabolic Profile (BMP )on 08-25-2024 BUN/CRE 15.6 RATIO Normal 01-30 [facility] Comment on above: Performed By: #### L 100.0100, L500.2500 ####[facility] [address] [place], [address] Calcium [Mass/Vol] 9.6 mg/dL Normal 7.6-11.0 [facility] Comment on above: Performed By: #### L 100.0100, L500.2500 ####[facility] [address] [place], [address] Chloride [Moles/Vol] 106 mmol/L Normal 98-108 [facility] Comment on above: Performed By: #### L 100.0100, L500.2500 ####[facility] [address] [place], [address] CO2 [Moles/Vol] 21.8 mmol/L Normal 21.0-32.0 [facility] Comment on above: Performed By: #### L 100.0100, L500.2500 ####[facility] [address] [place], [address] Creatinine [Mass/Vol] 1.24 mg/dL High 0.70-1.20 [facility] Comment on above: Performed By: #### L 100.0100, L500.2500 ####[facility] [address] [place], [address] GAP 11 Normal 5-15 [facility] Comment on above: Performed By: #### L 100.0100, L500.2500 ####[facility] [address] [place], [address] GFR/1.73 sq M.predicted among non-blacks MDRD (S/P/Bld) [Vol rate/Area] 65 mL/min/{1.73_m2} Normal >60 [facility] Comment on above: Result Comment: mL/m in/1.73m2 CKD-EPI Creatinine Equation (2020) Performed By: #### L 100.0100, L500.2500 ####[facility] [address] [place], [address] Glucose [Mass/Vol] 113 mg/dL High 70-99 [facility] Comment on above: Performed By: #### L 100.0100, L500.2500 ####[facility] [address] [place], [address] Potassium [Moles/Vol] 4.3 mmol/L Normal 3.3-5.1 [facility] Comment on above: Performed By: #### L 100.0100, L500.2500 ####[facility] [address] [place], [address] Sodium [Moles/Vol] 139 mmol/L Normal 133-145 [facility] Comment on above: Performed By: #### L 100.0100, L500.2500 ####[facility] [address] [place], [address] Urea nitrogen [Mass/Vol] 19 mg/dL Normal 4-19 [facility] Comment on above: Performed By: #### L 100.0100, L500.2500 ####[facility] [address] [place], [address] Basophil percentageOrdered B y: Suleiman Toribio on 08-25-2024 Basophils/100 WBC (Bld) 0.6 % 0-1 [facility] CBC W/Diff, Automatedon 08-11 Absolute Lymph 2.11 X10 3/uL Normal 0.83-4.51 [facility] Comment on above: Performed By: #### L 100.0100, L500.2500 ####[facility] [address] [place], [address] Absolute Neut 2.8 X10 3/uL Normal 2.0-7.7 [facility] Comment on above: Performed By: #### L 100.0100, L500.2500 ####[facility] [address] [place], [address] Basophils/100 WBC (Bld) 0.6 % Normal 0-1 [facility] Comment on above: Performed By: #### L 100.0100, L500.2500 ####[facility] [address] [place], [address] Eosinophils/100 WBC (Bld) 2.6 % Normal 0-5 [facility] Comment on above: Performed By: #### L 100.0100, L500.2500 ####[facility] [address] [place], [address] Erythrocyte distribution width (RBC) [Ratio] 11.8 % Normal 11.6-14.6 [facility] Comment on above: Performed By: #### L 100.0100, L500.2500 ####[facility] [address] [place], [address] Hematocrit (Bld) [Volume fraction] 39.4 % Low 40-54 [facility] Comment on above: Performed By: #### L 100.0100, L500.2500 ####[facility] [address] [place], [address] Hemoglobin (Bld) [Mass/Vol] 13.1 g/dL Normal 13.0-16.5 [facility] Comment on above: Performed By: #### L 100.0100, L500.2500 ####[facility] [address] [place], [address] IG% 0.200 Normal 0.0-0.9 [facility] Comment on above: Result Comment: IG% - Immature Granulocytes (promyelocytes, myelocytes and metamyelocytes) > 1% indicates that a LEFT SHIFT is Present. Performed By: #### L 100.0100, L500.2500 ####[facility] [address] [place], [address] Lymphocytes/100 WBC (Bld) 38.8 % Normal 19-41 [facility] Comment on above: Performed By: #### L 100.0100, L500.2500 ####[facility] [address] [place], [address] MCH (RBC) [Entitic mass] 29.3 pg Normal 27.0-32.0 [facility] Comment on above: Performed By: #### L 100.0100, L500.2500 ####[facility] [address] [place], [address] MCHC (RBC) [Mass/Vol] 33.2 g/dL Normal 32-36 [facility] Comment on above: Performed By: #### L 100.0100, L500.2500 ####[facility] [address] [place], [address] MCV (RBC) [Entitic vol] 88.1 fL Normal 80-94 [facility] Comment on above: Performed By: #### L 100.0100, L500.2500 ####[facility] [address] [place], [address] Monocytes/100 WBC (Bld) 6.8 % Normal 0-10 [facility] Comment on above: Performed By: #### L 100.0100, L500.2500 ####[facility] [address] [place], [address] Neutrophils/100 WBC (Bld) 51.0 % Normal 47-70 [facility] Comment on above: Performed By: #### L 100.0100, L500.2500 ####[facility] [address] [place], [address] Nucleated RBC (Bld) [#/Vol] 0 10*3/uL Normal 0-5 [facility] Comment on above: Performed By: #### L 100.0100, L500.2500 ####[facility] [address] [place], [address] Platelet mean volume (Bld) [Entitic vol] 10.0 fL Normal 6.2-12.0 [facility] Comment on above: Performed By: #### L 100.0100, L500.2500 ####[facility] [address] [place], [address] Platelets (Bld) [#/Vol] 214 10*3/uL Normal 150-450 [facility] Comment on above: Performed By: #### L 100.0100, L500.2500 ####[facility] [address] [place], [address] RBC (Bld) [#/Vol] 4.47 10*6/uL Low 4.6-6.2 [facility] Comment on above: Performed By: #### L 100.0100, L500.2500 ####[facility] [address] [place], [address] RDW SD 37.8 fl Normal 35.1-43.9 [facility] Comment on above: Performed By: #### L 100.0100, L500.2500 ####[facility] [address] [place], [address] WBC (Bld) [#/Vol] 5.4 10*3/uL Normal 4.4-11.0 [facility] Comment on above: Performed By: #### L 100.0100, L500.2500 ####[facility] [address] [place], [address] Carbon dioxide, total [Moles /volume] in Central venous bloodOrdered By: Suleiman Toribio on 08-25-2024 CO2 [Moles/Vol] 21.8 mmol/L 21.0-32.0 [facility] Chloride assayOrdered By: St viola Toribio on 08-25-2024 Chloride [Moles/Vol] 106 mmol/L 98-108 [facility] Eosinophil percentageOrdered By: Suleiman Toribio on 08-25-2024 Eosinophils/100 WBC (Bld) 2.6 % 0-5 [facility] Erythrocyte distribution wid th ratioOrdered By: Suleiman Toribio on 08-25-2024 Erythrocyte distribution width (RBC) [Ratio] 11.8 % 11.6-14.6 [facility] Erythrocyte distribution wid th standard deviationOrdered By: Suleiman Toribio on 08-25-2024 Erythrocyte distribution width (RBC) [Ratio] 37.8 fl 35.1-43.9 [facility] Glomerular filtration rate ( GFR) estimation/1.73 sq m using serum, plasma, or whole bOrdered By: Suleiman Toribio on 08-25-2024 GFR/1.73 sq M.predicted among non-blacks MDRD (S/P/Bld) [Vol rate/Area] 65 mL/min/{1.73_m2} >60 [facility] Comment on above: mL/min/1.73m2 CKD-EP I Creatinine Equation (2020) Hematocrit Auto (Bld) [Volum e fraction]Ordered By: Suleiman Toribio on 08-25-2024 Hematocrit (Bld) [Volume fraction] 39.4 % Low 40-54 [facility] Hemoglobin measurementOrdere d By: Suleiman Toribio on 08-25-2024 Hemoglobin (Bld) [Mass/Vol] 13.1 g/dL 13.0-16.5 [facility] Immature granulocytes/100 WB C Auto (Bld)Ordered By: Suleiman Toribio on 08-25-2024 Immature granulocytes/100 WBC (Bld) 0.200 % 0.0-0.9 [facility] Comment on above: IG% - Immature Granu locytes (promyelocytes, myelocytes and metamyelocytes) > 1% indicates that a LEFT SHIFT is Present. MCV (mean corpuscular volume ) determinationOrdered By: Suleiman Toribio on 08-25-2024 MCV (RBC) [Entitic vol] 88.1 fL 80-94 [facility] Mean corpuscular hemoglobin (MCH) determinationOrdered By: Suleiman Toribio on 08-25-2024 MCH (RBC) [Entitic mass] 29.3 pg 27.0-32.0 [facility] Mean corpuscular hemoglobin concentration (MCHC) determinationOrdered By: Suleiman Toribio on 08-25-2024 MCHC (RBC) [Mass/Vol] 33.2 g/dL 32-36 [facility] Mean platelet volume determi nationOrdered By: Suleiman Toribio on 08-25-2024 Platelet mean volume (Bld) [Entitic vol] 10.0 fL 6.2-12.0 [facility] Monocyte percentageOrdered B y: Suleiman Toribio on 08-25-2024 Monocytes/100 WBC (Bld) 6.8 % 0-10 [facility] Neutrophil percentageOrdered By: Suleiman Toribio on 08-25-2024 Neutrophils/100 WBC (Bld) 51.0 % 47-70 [facility] Nucleated red blood cell per centageOrdered By: Suleiman Toribio on 08-25-2024 Nucleated RBC/100 WBC (Bld) [Ratio] 0 % 0-5 [facility] Platelet countOrdered By: St viola Toribio on 08-25-2024 Platelets (Bld) [#/Vol] 214 10*3/uL 150-450 [facility] Potassium measurement (mass/ volume)Ordered By: Suleiman Toribio on 08-25-2024 Potassium (Unsp spec) [Mass/Vol] 4.3 mmol/L 3.3-5.1 [facility] RBC Auto (Bld) [#/Vol]Ordere d By: Suleiman Toribio on 08-25-2024 RBC (Bld) [#/Vol] 4.47 10*6/uL Low 4.6-6.2 [facility] Serum creatinine measurement (mass/volume)Ordered By: Suleiman Toribio on 08-25-2024 Creatinine [Mass/Vol] 1.24 mg/dL High 0.70-1.20 [facility] Serum glucose measurement (m ass/volume)Ordered By: Suleiman Toribio on 08-25-2024 Glucose [Mass/Vol] 113 mg/dL High 70-99 [facility] Serum or plasma calcium abhay urement (mass/volume)Ordered By: Suleiman Toribio on 08-25-2024 Calcium [Mass/Vol] 9.6 mg/dL 7.6-11.0 [facility] Serum or plasma urea nitroge n measurement (mass/volume)Ordered By: Suleiman Toribio on 08-25-2024 Urea nitrogen [Mass/Vol] 19 mg/dL 4-19 [facility] Sodium levelOrdered By: Tavon Toribio on 08-25-2024 Sodium [Moles/Vol] 139 mmol/L 133-145 [facility] White blood cell (WBC) count Ordered By: Suleiman Toribio on 08-25-2024 WBC (Bld) [#/Vol] 5.4 10*3/uL 4.4-11.0 [facility] Cardiac event monitor (14 da ys)on 07-04-2024 [...] da ys)Ordered By: Lucian Flores on 07-04-2024 [employer] Work Phone: 36on 05-17-2024 36 S: Patient's [...] Protocols used: Information Only Call - No [id number] Normal [facility] XR Chest 2 Viewson 5 Atelectasis in the l eft lower lobe. No other acute abnormality. Report Dictated on Electronically Signed By: Vlad Santiago MD Electronically Signed Date/Time: 05/17/2024 12:00 PM [facility] [employer] Patient Name: STEPHANE TORIBIO : 1960 [id number] Exam Date/Time: 05/17/2024 10:30 Procedure: XR CHEST 2 VIEWS Ordering Provider: ELIZABETH JOSHUA Reason For Exam: r06.09 r05.1 CHEST: CLINICAL INDICATION: r06.09 r05.1. Dyspnea. Cough TECHNIQUE: PA and Lateral COMPARISON: None FINDINGS: The heart and mediastinum are normal. Subsegmental atelectasis in the left lower lobe. No other consolidation. There is no evidence for pleural effusion. Degenerative change of the thoracic spine is noted. [facility] Vlad Santiago MD - 05/17/2024 Patient Name: STEPHANE TORIBIO : 1960 [id number] Exam Date/Time: 05/17/2024 10:30 Procedure: XR CHEST [...] Electronically Signed Date/Time: 05/17/2024 12:00 PM EST [employer] Radiology Study observation (narrative) [employer] XR Chest 2 ViewsOrdered By: Vlad Santiago on 05-17-2024 [employer] Work Phone: PSA Total (Screening)on Interpretation and review of laboratory results Abnormal [employer] Prostate specific Ag [Mass/Vol] 5.48 ng/mL High < OR = 4.00 [employer] Comment on above: The total PSA value [...] of the presence or absence of disease. [employer] XR Lumbar spine Views W flex ion and W extensionon 05-05-2023 Moderate lumbar degenerative spondylosis most pronounced at L2-L3 level. No vertebral subluxation with motion. 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 Report Dictated on Electronically Signed By: Aj Arvealo DO Electronically Signed Date/Time: 05/05/2023 9:35 AM EST [facility] Patient Name: STEPHANE TORIIBO : 1960 Exam Date/Time: 05/01/2023 08:55 Procedure: [...] The pedicles and sacroiliac joints are unremarkable. [facility] Aj Arevalo DO - 05/05/2023 Patient [...] Electronically Signed Date/Time: 05/05/2023 9:35 AM EST [employer] XR Lumbar spine Views W flex ion and W extensionOrdered By: Aj Arevalo on 05-05-2023 [employer] Work Phone: US Retroperitoneumon 1. No hydronephrosis [...] MD Electronically Signed Date/Time: 05/03/2023 12:40 PM [facility] [employer] Patient Name: STEPHANE TORIBIO : 1960 [...] fluid collections. The urinary bladder is nondistended. [facility] [employer] Toni Rangel MD - 05/03/2023 Patient Name: STEPHANE TORIBIO : 1960 [place] [id number] Exam Date/Time: 05/01/2023 08:20 Procedure: US RETROPERITONEAL [...] Electronically Signed Date/Time: 05/03/2023 12:40 PM EST [employer] US RetroperitoneumOrdered By : Toni Rangel on 05-03-2023 [employer] Work Phone: US Retroperitoneumon 024 Radiology Study observation (narrative) [employer] XR Lumbar spine Views W flex ion and W extensionon 05-01-2023 Radiology Study observation (narrative) [employer] PSA, total and freeon 2023 Free PSA [Mass/Vol] 2.2 ng/mL [employer] Free PSA/Total PSA [Mass fraction] 31 % [employer] Comment on above: INTERPRETIVE INFORMA TION: Prostate [...] prostate cancer in individual patients. Performed By: [facility] [employer] [address] [place] [id number] [place] Layer: Juventino Narayanan MD, PhD CLIA Number: [id number] Interpretation and review of laboratory results Abnormal [employer] Prostate specific Ag IA [Mass/Vol] 7.2 ng/mL High 0.0 - 4.0 ng/mL [employer] Comment on above: INTERPRETIVE INFORMA TION: Prostate [...] healthy individuals or individuals with nonprostatic carcinoma. [employer] CBC W Auto Differential pane l (Bld)Ordered By: Margo Bronson on 04-17-2023 Basophils (Bld) [#/Vol] 0.0 10*3/uL 0.0 - 0.2 10*3/uL [employer] Basophils/100 WBC (Bld) 0.5 % 0.0 - 2.0 % [employer] Eosinophils (Bld) [#/Vol] 0.2 10*3/uL 0.0 - 0.5 10*3/uL [employer] Eosinophils/100 WBC (Bld) 2.7 % 1.0 - 6.0 % [employer] Erythrocyte distribution width (RBC) [Ratio] 12.8 % 11.5 - 14.5 % [facility] Hematocrit (Bld) [Volume fraction] 39.9 % Low 40.0 - 52.0 % [facility] Hemoglobin (Bld) [Mass/Vol] 13.1 g/dL 13.0 - 18.0 g/dL [facility] Immature granulocytes (Bld) [#/Vol] 0.0 10*3/uL NINF - 0.0 10*3/uL [facility] Immature granulocytes/100 WBC (Bld) 0.4 % High NINF - 0.0 % [facility] Interpretation and review of laboratory results Abnormal [facility] Lymphocytes (Bld) [#/Vol] 1.9 10*3/uL 1.0 - 4.3 10*3/uL [facility] Lymphocytes/100 WBC (Bld) 33.7 % 20.0 - 40.0 % [facility] MCH (RBC) [Entitic mass] 28.3 pg 26.0 - 34.0 pg [facility] MCHC (RBC) [Mass/Vol] 32.8 % 32.0 - 36.0 % [facility] MCV (RBC) [Entitic vol] 86.2 fL 80.0 - 98.0 fL [facility] Monocytes (Bld) [#/Vol] 0.6 10*3/uL 0.0 - 0.8 10*3/uL [facility] Monocytes/100 WBC (Bld) 9.7 % 2.0 - 10.0 % [facility] Neutrophils (Bld) [#/Vol] 3.0 10*3/uL 1.8 - 7.0 10*3/uL [facility] Neutrophils/100 WBC (Bld) 53.0 % 40.0 - 80.0 % [facility] Platelet mean volume (Bld) [Entitic vol] 10.1 fL 7.4 - 12.4 fL [facility] Comment on above: MPV is a calculated measurement using platelet volume ratio Platelets (Bld) [#/Vol] 216 10*3/uL 140 - 440 10*3/uL [facility] RBC (Bld) [#/Vol] 4.63 10*6/uL 4.40 - 5.90 10*6/uL [facility] WBC (Bld) [#/Vol] 5.7 10*3/uL 3.6 - 10.7 10*3/uL [facility] Comprehensive metabolic 1998 panelon 04-17-2023 Albumin [Mass/Vol] 4.1 g/dL 3.5 - 5.0 g/dL [facility] ALP [Catalytic activity/Vol] 69 U/L 38 - 126 U/L [facility] ALT [Catalytic activity/Vol] 34 U/L 0 - 49 U/L [facility] Anion gap [Moles/Vol] 8 mmol/L 3 - 13 mmol/L [facility] AST [Catalytic activity/Vol] 35 U/L 15 - 46 U/L [facility] Bilirubin [Mass/Vol] 0.4 mg/dL 0.2 - 1 .3 mg/dL [facility] Calcium [Mass/Vol] 9.4 mg/dL 8.4 - 10. 4 mg/dL [facility] Chloride [Moles/Vol] 108 mmol/L High 98 - 10 7 mmol/L [facility] CO2 [Moles/Vol] 24 mmol/L 22 - 30 mmol/L [facility] Creatinine [Mass/Vol] 1.35 mg/dL High 0.66 - 1.25 mg/dL [facility] GFR/1.73 sq M.predicted MDRD (S/P/Bld) [Vol rate/Area] 59.0 mL/min/{1.73_m2} Low - PINF [facility] Comment on above: Calculation based on the Chronic Kidney Disease Epidemiology Collaboration (CKD-EPI) equation refit without adjustment for race Glucose [Mass/Vol] 99 mg/dL 70 - 100 mg/dL [facility] Potassium [Moles/Vol] 4.5 mmol/L 3.5 - 5.1 mmol/L [facility] Protein [Mass/Vol] 7.1 g/dL 6.3 - 8.2 g/dL [facility] Sodium [Moles/Vol] 139 mmol/L 135 - 145 mmol/L [facility] Urea nitrogen [Mass/Vol] 23 mg/dL High 9 - 20 mg/dL [facility] Lipid 1996 panelon Cholesterol [Mass/Vol] 171 mg/dL NINF - 200 mg/dL [facility] Cholesterol in HDL [Mass/Vol] 50 mg/dL 40 - 60 mg/dL [facility] Cholesterol in LDL [Mass/Vol] 104 mg/dL High 0 - <100 [facility] Cholesterol.total/Mary sterol in HDL [Mass ratio] 3 {ratio} [facility] Comment on above: Ref Range: < 3 Low Risk for CHD 3-6 Mod Risk for CHD > 6 High Risk for CHD Triglyceride [Mass/Vol] 86 mg/dL NINF - 150 mg/dL [facility] No Panel Informationon 04-17 Interpretation and review of laboratory results Abnormal [facility] Laboratory - Chemistry and C hemistry - challengeon 12-05-2022 Prostate specific Ag DL <= 0.01 ng/mL [Mass/Vol] 7.44 ug/L [facility] Comment on above: REFERENCE RANGES for PSA: LESS THAN 0.10 ng/mL AFTER RADICAL PROSTATECTOMY. 4.0 ng/mL OR LESS IN HEALTHY MALES WITHOUT PROSTATECTOMY. PSA values obtained with different assay methods or kits cannot be used interchangeably. This test was performed using the [employer] DxI method. PSA, ICMA is not to [...] recurrent prostate cancer. No Panel Informationon 12-05 [facility] [employer] PSA Screeningon 05-02-2022 Interpretation and review of laboratory results Abnormal [facility] Prostate specific Ag [Mass/Vol] 4.588 ng/mL High NINF - 4.000 ng/mL [facility] Testing performed on the [employer] using an immunometric methodology. Results obtained by different methods should not be used interchangeably. [facility] [employer]One CR Shoulder 2+ Views Righton 12-20-2021 CR Shoulder 2+ Views Right Patient Name: STEPHANE TORIBIO Diagnostic Radiology ACCESSION EXAM DATE/TIME PROCEDURE ORDERING PROVIDER [id number] 12/20/2021 16:24 EDT CR Shoulder 2+ Views DO ELIZABETH JOSHUA D Right CPT code 04169 Reason For Exam (CR Shoulder 2+ Views [...] Transcribed Date and Time: 12/23/2021 12:29 Normal [facility] Prostatic Specific Ag- Diagn osticon 10-24-2021 Prostatic Specific Ag 4.256 ng/mL Abnormal < 4.000 [facility] Comment on above: Result Comment: Test ing performed on the [employer] 5600 using an immunometric methodology. Results obtained by different methods should not be used interchangeably. Performed By: #### P SA3 #### [facility] [address] [place] [address] [employer] 03-01-2020 Erythrocyte distribution width (RBC) [Ratio] 13.1 % 11.5 - 14.5 % [place] Hematocrit (Bld) [Volume fraction] 41.1 % 40 - 52 % [place] Hemoglobin (Bld) [Mass/Vol] 13.6 g/dL 13 - 18 g/dL [place] MCH (RBC) [Entitic mass] 29.5 pg 26 - 34 pg [place] MCHC (RBC) [Mass/Vol] 33.1 % 32 - 36 % [place] MCV (RBC) [Entitic vol] 89.0 fL 80 - 98 fL [place] Platelet mean volume (Bld) [Entitic vol] 7.6 fL 7.4 - 10.4 fL [place] Platelets (Bld) [#/Vol] 238 10*3/uL 140 - 440 10*3/uL [place] RBC (Bld) [#/Vol] 4.61 10*6/uL 4.4 - 5.9 10*6/uL [place] WBC (Bld) [#/Vol] 6.0 10*3/uL 3.6 - 10.7 10*3/uL [place] Test Performed by [facility], [address], [place], [place] [address] [place] Comprehensive Metabolic Pane henny 03-01-2020 Albumin [Mass/Vol] 4.3 g/dL 3.5 - 5 g/dL [place] ALP [Catalytic activity/Vol] 61 U/L 38 - 126 U/L [place] ALT [Catalytic activity/Vol] 22 U/L 0 - 49 U/L [place] Comment on above: The ALT test is perf ormed by an updated assay method. Please note that the reference intervals have been changed and are now sex specific. Anion gap [Moles/Vol] 10 mmol/L [place] AST [Catalytic activity/Vol] 27 U/L 15 - 46 U/L [place] Bilirubin Ql (U) 0.6 mg/dL 0.2 - 1.3 mg/dL [place] Calcium [Mass/Vol] 9.3 mg/dL 8.4 - 10. 4 mg/dL [place] Chloride [Moles/Vol] 107 mmol/L 98 - 10 7 mmol/L [place] CO2 [Moles/Vol] 25 mmol/L 22 - 30 mmol/L [place] Creatinine [Mass/Vol] 1.35 mg/dL High 0.52 - 1.25 mg/dL [place] EGFR IF NonAfrican [place] African 56.5 mL/min Abnormal >60 [place] Comment on above: KDIGO guidelines pro [...] MDRD (S/P/Bld) [Vol rate/Area] 65.5 mL/min/{1.73_m2} >60 [place] Glucose [Mass/Vol] 85 mg/dL 70 - 100 mg/dL [place] Interpretation and review of laboratory results Abnormal [place] Potassium [Moles/Vol] 4.6 mmol/L 3.5 - 5.1 mmol/L [place] Protein [Mass/Vol] 7.5 g/dL 6.3 - 8.2 g/dL [place] Sodium [Moles/Vol] 141 mmol/L 135 - 145 mmol/L [place] Urea nitrogen [Mass/Vol] 21 mg/dL High 7 - 20 mg/dL [place] Test Performed by [facility], [address], [place], [place] [address] [place] CBC Auto Differentialon 06-0 Absolute Baso # 0.0 10*3/uL 0 - 0.2 10*3/uL [place] Absolute Neut # 2.7 10*3/uL 1.8 - 7 10*3/uL [place] Basophils/100 WBC (Bld) 0.6 % 0 - 2 % [place] Eosinophils (Bld) [#/Vol] 0.1 10*3/uL 0 - 0.5 10*3/uL [place] Eosinophils/100 WBC (Bld) 2.3 % 1 - 6 % [place] Erythrocyte distribution width (RBC) [Ratio] 13.1 % 11.5 - 14.5 % [place] Granulocytes/100 WBC (Bld) 46.3 % 40 - 80 % [place] Hematocrit (Bld) [Volume fraction] 40.8 % 40 - 52 % [place] Hemoglobin (Bld) [Mass/Vol] 13.9 g/dL 13 - 18 g/dL [place] Interpretation and review of laboratory results Abnormal [place] Lymphocytes (Bld) [#/Vol] 2.4 10*3/uL 1 - 4.3 10*3/uL [place] Lymphocytes/100 WBC (Bld) 41.9 % High 20 - 40 % [place] MCH (RBC) [Entitic mass] 29.6 pg 26 - 34 pg [place] MCHC (RBC) [Mass/Vol] 34.1 % 32 - 36 % [place] MCV (RBC) [Entitic vol] 86.9 fL 80 - 98 fL [place] Monocytes (Bld) [#/Vol] 0.5 10*3/uL 0 - 0.8 10*3/uL [place] Monocytes/100 WBC (Bld) 8.9 % 2 - 10 % [place] Platelet mean volume (Bld) [Entitic vol] 7.8 fL 7.4 - 10.4 fL [place] Platelets (Bld) [#/Vol] 207 10*3/uL 140 - 440 10*3/uL [place] RBC (Bld) [#/Vol] 4.69 10*6/uL 4.4 - 5.9 10*6/uL [place] WBC (Bld) [#/Vol] 5.8 10*3/uL 3.6 - 10.7 10*3/uL [place] Test Performed by [facility], [address] , [address] Comprehensive Metabolic Pane henny 09-20-2019 Albumin [Mass/Vol] 4.3 g/dL 3.5 - 5 g/dL [place] ALP [Catalytic activity/Vol] 68 U/L 38 - 126 U/L [place] ALT [Catalytic activity/Vol] 29 U/L 0 - 49 U/L [place] Comment on above: The ALT test is perf ormed by an updated assay method. Please note that the reference intervals have been changed and are now sex specific. Anion gap [Moles/Vol] 8 mmol/L [place] AST [Catalytic activity/Vol] 30 U/L 15 - 46 U/L [place] Bilirubin Ql (U) 0.8 mg/dL 0.2 - 1.3 mg/dL [place] Calcium [Mass/Vol] 9.8 mg/dL 8.4 - 10. 4 mg/dL [place] Chloride [Moles/Vol] 106 mmol/L 98 - 10 7 mmol/L [place] CO2 [Moles/Vol] 25 mmol/L 22 - 30 mmol/L [place] Creatinine [Mass/Vol] 1.3 mg/dL High 0.52 - 1.25 mg/dL [place] EGFR IF NonAfrican [place] African 59.3 mL/min Abnormal >60 [place] Comment on above: KDIGO guidelines pro [...] MDRD (S/P/Bld) [Vol rate/Area] 68.8 mL/min/{1.73_m2} >60 [place] Glucose [Mass/Vol] 113 mg/dL High 70 - 100 mg/dL [place] Potassium [Moles/Vol] 4.6 mmol/L 3.5 - 5.1 mmol/L [place] Protein [Mass/Vol] 7.3 g/dL 6.3 - 8.2 g/dL [place] Sodium [Moles/Vol] 139 mmol/L 135 - 145 mmol/L [place] Urea nitrogen [Mass/Vol] 26 mg/dL High 7 - 20 mg/dL [place] Lipid Panelon 09-20-2019 Cholesterol [Mass/Vol] 186 mg/dL <200 [place] Cholesterol in HDL [Mass/Vol] 41 mg/dL 40 - 60 mg/dL [place] Cholesterol in LDL [Mass/Vol] 110 mg/dL Abnormal <100 [place] Cholesterol.total/Mary sterol in HDL [Mass ratio] 5 {ratio} [place] Comment on above: Ref Range: < 3 Low Risk for CHD 3-6 Mod Risk for CHD > 6 High Risk for CHD Triglyceride [Mass/Vol] 173 mg/dL Abnormal <150 [place] Otheron 09-20-2019 Interpretation and review of laboratory results Abnormal [place] Test Performed by [place] [address] Psa screeningon 09-20-2019 Test Performed by [facility], [facility] [address] ROUTINE EKG TREADMILL STRESS TESTOrdered By: Abimael Elizabeth on 04-07-2019 EXERCISE ECG STRESS TEST Kun Protocol PATIENT: Stephane Toribio STUDY DATE: 04/07/2019 : 1960 AGE: 58 HT/WT: GENDER: M BP: LOCATION: [facility]IENT [facility] STATUS: *ORDERING PHYSICIAN: * Abimael Elizabeth *SUPERVISING PHYSICIAN: * Josue Packer *RN: * Dora Beavers *READING PHYSICIAN: * Reji Card DO [facility] INDICATIONS: Chest Pressure (R07.89). Exertional Dyspnea [...] peak heart rate and blood pressure was [address] mm Hg/min. Stress testing did not produce [...] risk of cardiac events. Electronically signed by Rjei Card DO, FSVM, FACC 04/07/2019 12:01 Prior Signatures: [facility] Work Phone: Amanda Romero Incoming Cardiology Results From [facility] - 04/07/2019 12:01 PM EST EXERCISE ECG STRESS TEST Kun Protocol PATIENT: Stephane Toribio STUDY DATE: 04/07/2019 [facility]#: [id number] : 1960 AGE: 58 HT/WT: GENDER: M BP: LOCATION: [facility] PATIENT [facility] STATUS: *ORDERING PHYSICIAN: * Abimael Elizabeth *SUPERVISING PHYSICIAN: * Josue Packer *RN: * Dora Beavers *READING PHYSICIAN: * Reji Card DO, FS, [facility] INDICATIONS: Chest Pressure (R07.89). Exertional Dyspnea [...] peak heart rate and blood pressure [place] [address]162 mm Hg/min. Stress testing did not produce [...] events. Electronically signed by Reji Card DO, [facility] [facility] 04/07/2019 12:01 Prior Signatures: AMANDA Work Phone: PROGRESSon 12-19-2017 Protein mass conc HNO ID: [id number] thor: Alexandra Celestin: (none)Author Type: PhysicianType: Progress [...] his primary physician for medical care. Normal [facility] CNOVon 12-16-2017 CNOV Office Visit (GENSWS) STEPHANE TORIBIO ([id number]) 1960 MDate Time Provider Department12/16/17 3:00 PM [...] physician for medical care.Referring Provider: ALEXANDRA ROBLES [[id number]]Allergies As of Date: 12/16/2017(No Known Allergies)Date Reviewed: [...] Status:Closed by MD ALEXANDRA ROBLES on 12/19/17 [facility] CNOVon 11-04-2017 CNOV Office Visit (CULLEN) STEPHANE TORIBIO ([id number]) 1960 MDate Time Provider Department11/04/17 2:40 PM [...] N/A Last Colonoscopy: NoneJoamanda Lee TextEncounter Number: [id number] Status:Closed by MD ALEXANDRA ROBLES on 11/05/17 Normal [facility] PROGRESSon 11-04-2017 Protein mass conc HNO ID: [id number] thor: Alexandra Celestin: (none)Author Type: PhysicianType: Progress [...] with me after thesurgery. Alexandra Robles MD [facility] Vital Signs Date Time Vital Sign Value Performing Clinician Rita rubin 02-10-2025 08:52-0400 Diastolic blood pressure 64 mm[Hg] Reji Maradiaga MD Work Phone: [facility] 02-10-2025 08:52-0400 Heart rate 64 /min Reji Maradiaga MD Work Phone: [facility] 02-10-2025 08:52-0400 Systolic blood pressure 113 mm[Hg] Reji Maradiaga MD Work Phone: [facility] 01-26-2025 13:09-0400 Body temperature 97 [degF] Dr. Abimael Elizabeth DO Work Phone: [facility] 01-26-2025 13:09-0400 Diastolic blood pressure 70 mm[Hg] Dr. Abimael Elizabeth DO Work Phone: [facility] 01-26-2025 13:09-0400 Heart rate 87 /min Dr. Abimael Elizabeth DO Work Phone: [facility] 01-26-2025 13:09-0400 Respiratory rate 18 /min Dr. Abimael Elizabeth DO Work Phone: [facility] 01-26-2025 13:09-0400 Systolic blood pressure 126 mm[Hg] Dr. Abimael Elizabeth DO Work Phone: [facility] 01-26-2025 08:26-0400 Body height 177.[address] Abimael Elizabeth DO Work Phone: [facility] 01-26-2025 08:26-0400 Body mass index (BMI) [Ratio] 43.2 kg/m2 Dr. Abimael Elizabeth DO Work Phone: [facility] 01-26-2025 08:26-0400 Body weight 136.[address] Abimael Elizabeth DO Work Phone: [facility] 01-26-2025 08:26-0400 Diastolic blood pressure 76 mm[Hg] Dr. Abimael Elizabeth DO Work Phone: [facility] 01-26-2025 08:26-0400 Heart rate 94 /min Dr. Abimael Elizabeth DO Work Phone: [facility] 01-26-2025 08:26-0400 Respiratory rate 18 /min Dr. Abimael Elizabeth DO Work Phone: [facility] 01-26-2025 08:26-0400 Systolic blood pressure 125 mm[Hg] Dr. Abimael Elizabeth DO Work Phone: [facility] 01-24-2025 07:49-0400 Body temperature 97.2 [degF] Vani Muñiz MD Work Phone: [facility] 01-24-2025 07:49-0400 Diastolic blood pressure 81 mm[Hg] Vani Muñiz MD Work Phone: [facility] 01-24-2025 07:49-0400 Heart rate 69 /min Vani Muñiz MD Work Phone: [facility] 01-24-2025 07:49-0400 Respiratory rate 16 /min Vani Muñiz MD Work Phone: [facility] 01-24-2025 07:49-0400 SaO2% (BldA) [Mass fraction] 97 % Vani Muñiz MD Work Phone: [facility] 01-24-2025 07:49-0400 Systolic blood pressure 143 mm[Hg] Vani Muñiz MD Work Phone: [facility] 01-22-2025 00:18-0400 Body height 177.8 cm Vani Muñiz MD Work Phone: [facility] 01-22-2025 00:18-0400 Body mass index (BMI) [Ratio] 44.05 kg/m2 Vani Muñiz MD Work Phone: [facility] 01-22-2025 00:18-0400 Body weight 139.25 kg Vani Muñiz MD Work Phone: [facility] 01-20-2025 09:22-0400 Diastolic blood pressure 66 mm[Hg] Reji Maradiaga MD Work Phone: [facility] 01-20-2025 09:22-0400 Heart rate 76 /min Reji Maradiaga MD Work Phone: [facility] 01-20-2025 09:22-0400 Systolic blood pressure 130 mm[Hg] Reji Maradiaga MD Work Phone: [facility] 01-17-2025 17:13-0400 Heart rate 67 /min Byron Yin MD Work Phone: [facility] 01-17-2025 17:05-0400 Diastolic blood pressure 75 mm[Hg] Byron Yin MD Work Phone: [facility] 01-17-2025 17:05-0400 Respiratory rate 19 /min Byron Yin MD Work Phone: [facility] 01-17-2025 17:05-0400 SaO2% (BldA) [Mass fraction] 99 % Byron Yin MD Work Phone: [facility] 01-17-2025 17:05-0400 Systolic blood pressure 173 mm[Hg] Byron Yin MD Work Phone: [facility] 01-17-2025 13:24-0400 Body temperature 97.39 [degF] Byron Yin MD Work Phone: [facility] 01-16-2025 14:25-0400 Body temperature 98.7 [degF] [facility] 01-16-2025 14:25-0400 Diastolic blood pressure 73 mm[Hg] [facility] 01-16-2025 14:25-0400 Heart rate 73 /min [facility] 01-16-2025 14:25-0400 Respiratory rate 18 /min [facility] 01-16-2025 14:25-0400 SaO2% (BldA) [Mass fraction] 96 % [facility] 01-16-2025 14:25-0400 Systolic blood pressure 133 mm[Hg] [facility] 01-16-2025 08:00-0400 Inhaled oxygen flow rate 6 L/min [facility] 01-16-2025 05:21-0400 Body weight 144.1 kg [facility] 01-14-2025 19:50-0400 Body height 177.8 cm [facility] 01-14-2025 19:30-0400 Diastolic blood pressure 89 mm[Hg] [facility] 01-14-2025 19:30-0400 Heart rate 72 /min [facility] 01-14-2025 19:30-0400 Respiratory rate 20 /min [facility] 01-14-2025 19:30-0400 SaO2% (BldA) [Mass fraction] 98 % [facility] 01-14-2025 19:30-0400 Systolic blood pressure 172 mm[Hg] [facility] 01-14-2025 10:11-0400 Body temperature 98.2 [degF] [facility] 01-14-2025 10:07-0400 Body height 177.8 cm [facility] 01-14-2025 10:07-0400 Body weight 144.15 kg [facility] 01-05-2025 09:08-0400 Body temperature 96 [degF] Dr. Abimael Elizabeth DO Work Phone: [facility] 01-05-2025 09:08-0400 Diastolic blood pressure 70 mm[Hg] Dr. Abimael Elizabeth DO Work Phone: [facility] 01-05-2025 09:08-0400 Heart rate 69 /min Dr. Abimael Elizabeth DO Work Phone: [facility] 01-05-2025 09:08-0400 Respiratory rate 14 /min Dr. Abimael Elizabeth DO Work Phone: [facility] 01-05-2025 09:08-0400 Systolic blood pressure 151 mm[Hg] Dr. Abimael Elizabeth DO Work Phone: [facility] 01-02-2025 13:43-0400 Diastolic blood pressure 78 mm[Hg] Reji Maradiaga MD Work Phone: [facility] 01-02-2025 13:43-0400 Heart rate 60 /min Reji Maradiaga MD Work Phone: [facility] 01-02-2025 13:43-0400 Systolic blood pressure 139 mm[Hg] Reji Maradiaga MD Work Phone: [facility] 12-08-2024 12:58-0400 Body temperature 96.5 [degF] Dr. Abimael Elizabeth DO Work Phone: [facility] 12-08-2024 12:58-0400 Diastolic blood pressure 82 mm[Hg] Dr. Abimael Elizabeth DO Work Phone: [facility] 12-08-2024 12:58-0400 Heart rate 69 /min Dr. Abimael Elizabeth DO Work Phone: [facility] 12-08-2024 12:58-0400 Respiratory rate 18 /min Dr. Abimael Elizabeth DO Work Phone: [facility] 12-08-2024 12:58-0400 Systolic blood pressure 162 mm[Hg] Dr. Abimael Elizabeth DO Work Phone: [facility] 11-09-2024 11:10-0400 Body temperature 97.2 [degF] Dr. Abimael Elizabeth DO Work Phone: [facility] 11-09-2024 11:10-0400 Diastolic blood pressure 73 mm[Hg] Dr. Abimael Elizabeth DO Work Phone: [facility] 11-09-2024 11:10-0400 Heart rate 64 /min Dr. Abimael Elizabeth DO Work Phone: [facility] 11-09-2024 11:10-0400 Respiratory rate 18 /min Dr. Abimael Elizabeth DO Work Phone: [facility] 11-09-2024 11:10-0400 Systolic blood pressure 153 mm[Hg] Dr. Abimael Elizabeth DO Work Phone: [facility] 10-05-2024 10:26-0400 Body temperature 97.6 [degF] Dr. Abimael Elizabeth DO Work Phone: [facility] 10-05-2024 10:26-0400 Diastolic blood pressure 84 mm[Hg] Dr. Abimael Elizabeth DO Work Phone: [facility] 10-05-2024 10:26-0400 Heart rate 61 /min Dr. Abimael Elizabeth DO Work Phone: [facility] 10-05-2024 10:26-0400 Respiratory rate 18 /min Dr. Abimael Elizabeth DO Work Phone: [facility] 10-05-2024 10:26-0400 Systolic blood pressure 139 mm[Hg] Dr. Abimael Elizabeth DO Work Phone: [facility] 01-01-2024 09:22-0400 Body height 177.8 cm Reji Maradiaga MD Work Phone: [facility] 01-01-2024 09:22-0400 Body mass index (BMI) [Ratio] 47.35 kg/m2 Reji Maradiaga MD Work Phone: [facility] 01-01-2024 09:22-0400 Body weight 149.69 kg Reji Maradiaga MD Work Phone: [facility] 01-01-2024 09:22-0400 Diastolic blood pressure 70 mm[Hg] Reji Maradiaga MD Work Phone: [facility] 01-01-2024 09:22-0400 Heart rate 57 /min Reji Maradiaga MD Work Phone: [facility] 01-01-2024 09:22-0400 Systolic blood pressure 138 mm[Hg] Reji Maradiaga MD Work Phone: [facility] 06-15-2023 15:08-0500 Body height 177.8 cm Soraya Cazares EMPLOYMENT OFFICER - OPTICAL INSTRUMENT ASSEMBLER Work Phone: [facility] 06-15-2023 15:08-0500 Body mass index (BMI) [Ratio] 47.35 kg/m2 Soraya Tobinar EMPLOYMENT OFFICER - OPTICAL INSTRUMENT ASSEMBLER Work Phone: [facility] 06-15-2023 15:08-0500 Body weight 149.69 kg Soraya Mahadar EMPLOYMENT OFFICER - OPTICAL INSTRUMENT ASSEMBLER Work Phone: [facility] 06-15-2023 15:08-0500 Diastolic blood pressure 74 mm[Hg] Soraya Tobinar EMPLOYMENT OFFICER - OPTICAL INSTRUMENT ASSEMBLER Work Phone: [facility] 06-15-2023 15:08-0500 Heart rate 64 /min Soraya Tobinar EMPLOYMENT OFFICER - OPTICAL INSTRUMENT ASSEMBLER Work Phone: [facility] 06-15-2023 15:08-0500 Systolic blood pressure 133 mm[Hg] Soraya Cazares EMPLOYMENT OFFICER - OPTICAL INSTRUMENT ASSEMBLER Work Phone: [facility] 03-03-2023 14:34-0500 Body height 177.8 cm Sharon STEVENSON-C Work Phone: [facility] 03-03-2023 14:34-0500 Body mass index (BMI) [Ratio] 44.77 kg/m2 Sharon Naranjoo PA-C Work Phone: [facility] 03-03-2023 14:34-0500 Body weight 141.52 kg Sharon Jose Ao PA-C Work Phone: [facility] 03-03-2023 14:34-0500 Diastolic blood pressure 68 mm[Hg] Sharon Biro PA-C Work Phone: [facility] 03-03-2023 14:34-0500 Systolic blood pressure 146 mm[Hg] Sharon Biro PA-C Work Phone: [facility] 01-09-2023 09:22-0400 Body height 177.8 cm Navneet Jackson MD Work Phone: [facility] 01-09-2023 09:22-0400 Body mass index (BMI) [Ratio] 42.47 kg/m2 Navneet Jackson MD Work Phone: [facility] 01-09-2023 09:22-0400 Body weight 134.26 kg Navneet Jackson MD Work Phone: [facility] 01-09-2023 09:22-0400 Diastolic blood pressure 74 mm[Hg] Navneet Jackson MD Work Phone: [facility] 01-09-2023 09:22-0400 Systolic blood pressure 134 mm[Hg] Navneet Jackson MD Work Phone: [facility] 12-19-2022 07:48-0400 Body height 177.8 cm Flor Barfield DO Work Phone: [facility] 12-19-2022 07:48-0400 Body mass index (BMI) [Ratio] 43.05 kg/m2 Flor Pradhans DO Work Phone: [facility] 12-19-2022 07:48-0400 Body weight 136.08 kg Flor Barfield DO Work Phone: [facility] 12-19-2022 07:48-0400 Diastolic blood pressure 72 mm[Hg] Flor Barfield DO Work Phone: [facility] 12-19-2022 07:48-0400 Heart rate 66 /min Flor Barfield DO Work Phone: [employer] 12-19-2022 07:48-0400 Systolic blood pressure 135 mm[Hg] Flor Barfield DO Work Phone: [employer] 05-07-2022 14:56-0500 Body height 177.8 cm Deanbenedict Arriaga EMPLOYMENT OFFICER - DIRECTOR CLINICAL APPLICATIONS Work Phone: [employer] 05-07-2022 14:56-0500 Body mass index (BMI) [Ratio] 46.2 kg/m2 Dean Bandastowski EMPLOYMENT OFFICER - DIRECTOR CLINICAL APPLICATIONS Work Phone: [employer] 05-07-2022 14:56-0500 Body weight 146.06 kg Dean Bandastkenia EMPLOYMENT OFFICER - DIRECTOR CLINICAL APPLICATIONS Work Phone: [employer] 05-07-2022 14:56-0500 Diastolic blood pressure 68 mm[Hg] Dean Bandastowski EMPLOYMENT OFFICER - DIRECTOR CLINICAL APPLICATIONS Work Phone: [employer] 05-07-2022 14:56-0500 Heart rate 71 /min Dean Bandastowski EMPLOYMENT OFFICER - DIRECTOR CLINICAL APPLICATIONS Work Phone: [employer] 05-07-2022 14:56-0500 Systolic blood pressure 157 mm[Hg] Dean Bandastowski EMPLOYMENT OFFICER - DIRECTOR CLINICAL APPLICATIONS Work Phone: [employer] 03-05-2020 14:03-0500 Body Temperature 97.7 [degF] Navneet [facility] 03-05-2020 14:03-0500 BP Diastolic 60 mm[Hg] Navneet [employer] , [place] 03-05-2020 14:03-0500 BP Systolic 105 mm[Hg] [facility] [place] 03-05-2020 14:03-0500 Pulse (Heart Rate) 70 /min [facility] [place] 03-05-2020 14:03-0500 Pulse Oximetry 93 % [facility]et [facility] [place] 03-05-2020 14:03-0500 Respiratory Rate 18 /min Navneet [facility] [place] 03-05-2020 11:49-0500 BMI (Body Mass Index) 46.2 kg/m2 Navneet [facility] [place] 03-05-2020 11:49-0500 Body weight 146.06 kg Navneet Arenas [facility] , [place] 03-05-2020 11:49-0500 Height 177.8 cm Navneet Arenas [facility] , [place] 03-01-2020 11:11-0500 BP Diastolic 80 mm[Hg] Navneet [facility] [place] 03-01-2020 11:11-0500 BP Systolic 121 mm[Hg] [facility] , [place] 03-01-2020 11:11-0500 Pulse (Heart Rate) 69 /min Navneet Arenas [facility], [place] 03-01-2020 11:11-0500 Pulse Oximetry 98 % Navneet Arenas [facility] , [place] 03-01-2020 11:09-0500 BMI (Body Mass Index) 46.81 kg/m2 [facility], [place] 03-01-2020 11:09-0500 Body Temperature 97.59 [degF] [facility] [place] 03-01-2020 11:09-0500 Body weight 147.99 kg [facility] , [place] 03-01-2020 11:09-0500 Height 177.8 cm [facility] , [place] 03-01-2020 11:09-0500 Respiratory Rate 16 /min Navneet [facility] [place] 01-23-2020 19:43-0400 Body Temperature 98.29 [degF] Tiffani Larry [facility], [place] 01-23-2020 19:43-0400 BP Diastolic 83 mm[Hg] [facility] [place] [facility] [place] 01-23-2020 19:43-0400 BP Systolic 156 mm[Hg] Tiffani Larry [facility] [place] , [place] 01-23-2020 19:43-0400 Pulse (Heart Rate) 76 /min Tiffani Kendy [facility] [place], [place] 01-23-2020 19:43-0400 Pulse Oximetry 94 % Tiffani [facility] , [place] 01-23-2020 19:43-0400 Respiratory Rate 18 /min Tiffani [facility], [facility] 04-07-2019 11:13-0500 Diastolic blood pressure 86 mm[Hg] Abimael Elizabeth DO Work Phone: [email or web address] Work Phone: 04-07-2019 11:13-0500 Heart rate 58 /min Abimael Elizabeth DO Work Phone: [email or web address] Work Phone: 04-07-2019 11:13-0500 SaO2% (BldA) [Mass fraction] 97 % Abimael Glenn DO Work Phone: [employer] Work Phone: 04-07-2019 11:13-0500 Systolic blood pressure 140 mm[Hg] Abimael Glenn DO Work Phone: [employer] Work Phone: 04-07-2019 11:08-0500 Body height 177.8 cm Abimael Glenn DO Work Phone: [employer] Work Phone: 04-07-2019 11:08-0500 Body mass index (BMI) [Ratio] 46.63 kg/m2 Abimael Glenn DO Work Phone: [employer] Work Phone: 04-07-2019 11:08-0500 Body weight 147.42 kg Abimael Elizabeth DO Work Phone: [email or web address] Work Phone: Encounters Encounter Date Encounter Type Care Provider Facility Start: 03-10-2025 ambulatory Kasia Jimbo Facility:[facility] Start: 02-22-2025 ambulatory Kasia Jimbo [facility] Start: 02-10-2025 End: 02-10-2025 Office outpatient visit 15 minutes Reji Maradiaga MD Work Phone: [facility] Comment on above: Urinary retention (P rimary Dx); Bladder spasms; Elevated PSA; Benign prostatic hyperplasia with nocturia Start: 02-10-2025 End: 02-10-2025 Orders Only Reji Maradiaga MD Work Phone: [facility] Comment on above: Bladder spasms Start: 02-09-2025 ambulatory Abimael Elizabeth Facilit y:[facility] Start: 02-09-2025 End: 02-09-2025 ambulatory Abimael Elizabeth Facility:[facility] Start: 02-05-2025 End: 02-09-2025 ambulatory [facility]iff[facility] Start: 02-05-2025 End: 02-09-2025 Patient encounter procedure Tiffani Navas RN [facility] Communication Start: 02-05-2025 End: 02-05-2025 Telephone encounter Gio Monge MD Work Phone: [facility] Comment on above: Other Start: 01-29-2025 End: 01-29-2025 Emergency department patient visit ABIMAELBAUDILIO ELIZABETH [facility] Start: 01-26-2025 ambulatory Abimael Elizabeth Facilit y:[facility] Start: 01-26-2025 Non-patient / Non-visit Yola STEVENSON -[facility] Start: 01-26-2025 Registered Recurring Yola STEVENSON -[facility] Work Phone: Start: 01-26-[address] Sigifredo Choi MD -Laboratory Work Phone: Start: 01-26-2025 End: 01-26-[address] Abimael Elizabeth DO Work Phone: -[facility] Start: 01-26-2025 End: 01-26-[address] Kasia Choi MD -[facility] Work Phone: Start: 01-26-2025 End: 01-26-2025 ambulatory Kasia Choi Facility:[facility] Start: 01-22-2025 End: 01-22-2025 Telephone encounter Abimael Moseley MD Work Phone: [facility] Start: 01-21-2025 End: 01-24-2025 Evaluation and management of inpatient Vani Muñiz MD Work Phone: [facility] Observation Unit 5E Comment on above: Bladder spasm (Prima ry Dx); Lower abdominal pain; Urinary tract infection associated with indwelling urethral catheter, initial encounter; Urine retention Start: 01-20-2025 End: 01-23-2025 Telephone encounter Reji Maradiaga MD Work Phone: [facility] Start: 01-20-2025 End: 01-20-2025 Office outpatient visit 25 minutes Reji Maradiaga MD Work Phone: [facility] Comment on above: Urinary retention (P rimary Dx); Benign prostatic hyperplasia with nocturia; Bladder spasms; Elevated PSA Start: 01-20-2025 End: 01-20-2025 ambulatory REJI MARADIAGA [facility] Start: 01-19-2025 ambulatory Abimael Elizabeth Facilit y:[facility] Start: 01-19-2025 Non-patient / [facility] Start: 01-17-2025 End: 01-17-2025 Emergency department patient visit Byron Yin MD Work Phone: [facility] EMERGENCY DEPT Comment on above: Gross hematuria (Kya carlo Dx); Mendoza catheter in place; Urinary retention; Bladder spasms Start: 01-14-2025 End: 01-16-2025 ambulatory Hitesh Nava Facility:[facility] Start: 01-14-2025 End: 01-16-2025 Evaluation and management of inpatient Augusto Duque MD -[facility] Work Phone: Start: 01-14-2025 End: 01-16-2025 observation encounter NON STAFF [facility] Work Phone: Start: 01-13-2025 End: 01-14-2025 Emergency department patient visit Lee Wise Facility:[facility] Start: 01-12-2025 ambulatory Abimael Elizabeth Facilit y:[facility] Start: 01-12-2025 Non-patient / [facility] Start: 01-12-2025 End: 01-24-2025 Follow-up encounter Reji Maradiaga MD Work Phone: [facility] Comment on above: MR pelvis w and wo c ontrast Start: 01-12-2025 End: 01-13-2025 Telephone encounter Reji Maradiaga MD Work Phone: [facility] Comment on above: Results (MRI) Results (MRI); Biops y (Scheduling) Start: 01-10-2025 End: 01-10-2025 Subsequent hospital visit by physician Reji Maradiaga MD Work Phone: [facility] [address] [facility] Comment on above: Elevated PSA Start: 01-10-2025 End: 01-10-2025 ambulatory ABIMAEL ELIZABETH [facility] Start: 01-05-2025 End: 01-05-2025 Telephone encounter Reji Maradiaga MD Work Phone: [facility] Start: 01-05-2025 Non-patient / Non-visit Dr. Lizzy Ballard MD -[facility] Work Phone: Start: 01-05-2025 End: 01-10-[address] Abimael Elizabeth DO Work Phone: [facility] Start: 01-05-2025 End: 01-10-2025 Discharged Recurring Yola STEVENSON -[facility] Work Phone: Start: 01-03-2025 End: 01-05-2025 Telephone encounter Reji Maradiaga MD Work Phone: [facility] Comment on above: Results (PSA) Start: 01-02-2025 End: 01-02-2025 Office outpatient visit 25 minutes Reji Maradiaga MD Work Phone: [facility] Comment on above: Incomplete bladder e mptying (Primary Dx); Nocturia; Frequency of urination; Benign prostatic hyperplasia with nocturia; Elevated PSA Start: 01-02-2025 End: 01-02-2025 Orders Only Reji Maradiaga MD Work Phone: [facility] Comment on above: Benign prostatic hyp erplasia [...] 12-08-2024 End: 12-11-2024 Discharged Recurring Yola Sepulveda [place] [facility] Work Phone: Start: 12-01-2024 ambulatory SENAIT HERNANDEZ Facility :[facility] Start: 12-01-2024 Non-patient / Non-visit Yola Sepulveda PA -[facility] Start: 11-23-2024 Non-patient / Non-visit Chacha gomez DIRECTOR CLINICAL APPLICATIONS-C -[facility] Start: 11-09-2024 Non-patient / Non-visit Chacha gomez DIRECTOR CLINICAL APPLICATIONS-C -[facility] Start: 11-09-2024 End: 11-10-[address] Abimael Elizabeth DO Work Phone: [facility] Start: 11-09-2024 End: 11-10-2024 Discharged Recurring Chacha Dunham DIRECTOR CLINICAL APPLICATIONS-C -[facility] Work Phone: Start: 11-03-2024 End: 11-03-2024 Subsequent hospital visit by physician Bal [address] Comment on above: Pure hypercholestero lemia Start: 11-03-2024 End: 11-03-2024 ambulatory ABIMAEL ELIZABETH [facility] Start: 11-02-2024 Non-patient / Non-visit Chacha gomez DIRECTOR CLINICAL APPLICATIONS-C -[facility] Start: 10-26-2024 Non-patient / Non-visit Chacha gomez DIRECTOR CLINICAL APPLICATIONS-C -[facility] Start: 10-12-2024 Non-patient / Non-visit Chacha gomez DIRECTOR CLINICAL APPLICATIONS-C -[facility] Start: 10-05-2024 Non-patient / Non-visit Chacha gomez DIRECTOR CLINICAL APPLICATIONS-C -[facility] Start: 10-05-2024 End: 10-10-2024 Discharged Recurring Chacha Dunham DIRECTOR CLINICAL APPLICATIONS-C -[facility] [place] Work Phone: Start: 10-05-2024 End: 10-10-[address] Abimael Elizabeth DO Work Phone: -[facility] Start: 08-29-2024 Encounter for other preprocedural examination Suleiman Toribio [facility] Start: 08-25-2024 End: 08-25-[address] Abimael Elizabeth DO Work Phone: [facility] Work Phone: Start: 08-25-2024 End: 08-25-[address] Suleiman Toribio MD -[facility] [place] Work Phone: Start: 08-25-2024 End: 08-25-2024 ambulatory Abimael Elizabeth Facility:[facility] Start: 06-15-2024 End: 06-15-2024 Subsequent hospital visit by physician Tresa Jordan Work Phone: [facility] Non-Invasive Cardiology Comment on above: Palpitations Start: 06-15-2024 End: 06-15-2024 ambulatory [facility] Start: 06-10-2024 End: 09-09-2024 Transcribe Orders Tresa Jordan RN [facility] Central Scheduling Comment on above: Palpitations (Primar y Dx) Start: 05-17-2024 End: 08-16-2024 Patient encounter procedure Ruddy Cheatham RN [facility] Clinic al Communication Comment on above: Other forms of dyspn ea (Primary Dx); Acute cough Start: 05-17-2024 End: 05-17-2024 ambulatory Ruddy Cheatham RN [facility] Clinical Communication Start: 05-17-2024 End: 05-17-2024 Subsequent hospital visit by physician Abimael Elizabeth DO Work Phone: [facility] Radiology Comment on above: Other forms of dyspn ea; Acute cough Start: 01-01-2024 End: 01-01-2024 Orders Only Reji Maradiaga MD Work Phone: [facility] Comment on above: Benign prostatic hyp erplasia with nocturia; Incomplete bladder emptying Start: 01-01-2024 End: 01-01-2024 Office outpatient visit 25 minutes Reji Maradiaga MD Work Phone: [facility] Comment on above: Elevated PSA (Primar y Dx); Incomplete bladder emptying; Nocturia; Weak urinary stream Start: 12-18-2023 End: 12-19-2023 Orders Only Soraya Cazares APRN - OPTICAL INSTRUMENT ASSEMBLER Work Phone: [facility] Start: 06-15-2023 End: 06-15-2023 Office outpatient visit 15 minutes Soraya Cazares APRN - OPTICAL INSTRUMENT ASSEMBLER Work Phone: [facility] Comment on above: Incomplete bladder e mptying (Primary Dx); Benign prostatic hyperplasia with nocturia; Elevated PSA Start: 05-01-2023 End: 05-01-2023 Subsequent hospital visit by physician Abimael Elizabeth DO Work Phone: [facility] US Comment on above: 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 Low back pain, unspe cified Low back pain, unspe cified (Primary Dx) Start: 04-29-2023 Transcribe Orders Abimael silveira DO Work Phone: [facility] Central Scheduling Comment on above: 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) Start: 04-17-2023 Transcribe Orders Abimael Brown s DO Work Phone: [facility] Outaptient Lab Comment on above: Pure hypercholestero lemia, unspecified (Primary Dx); Essential (primary) hypertension; Benign prostatic hyperplasia without lower urinary tract symptoms; Elevated prostate specific antigen (PSA) Start: 03-03-2023 End: 03-03-2023 Postop follow up visit related to original px Sharon Linton PA-C Work Phone: [facility] Comment on above: Digital mucous cyst of finger of left hand; 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 Start: 01-20-2023 ambulatory Sharon Brock Work Phone: [facility] Orthopedic Surg Start: 01-09-2023 Telephone encounter Navneet briceno MD Work Phone: [facility] Comment on above: Surgery Scheduling ( Surgery Scheduling) Start: 01-09-2023 End: 01-09-2023 Subsequent hospital visit by physician Navneet Jackson MD Work Phone: [facility] X-ray Comment on above: Digital mucous cyst of finger of left hand Start: 01-09-2023 End: 01-09-2023 Office outpatient visit 15 minutes Navneet Jackson MD Work Phone: [facility] Comment on above: Digital mucous cyst of finger of left hand; 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; Digital mucous cyst of right hand Start: 12-23-2022 Orders Only Flor viramontes DO Work Phone: [facility] Comment on above: Elevated PSA (Primar y Dx) Start: 12-19-2022 End: 12-19-2022 Patient encounter procedure Flor Barfield DO Work Phone: [facility] Comment on above: Elevated PSA Start: 11-03-2022 Telephone encounter Dean chand EMPLOYMENT OFFICER - DIRECTOR CLINICAL APPLICATIONS Work Phone: [facility] Comment on above: Results Start: 10-28-2022 Telephone encounter Dean crystalki EMPLOYMENT OFFICER - DIRECTOR CLINICAL APPLICATIONS Work Phone: [facility] Comment on above: Other Start: 05-07-2022 End: 05-07-2022 Office outpatient visit 15 minutes Dean Corina EMPLOYMENT OFFICER - DIRECTOR CLINICAL APPLICATIONS Work Phone: [facility] J[facility]ortencia Comment on above: Screening PSA (prost ate specific antigen) (Primary Dx); Benign prostatic hyperplasia with nocturia; Lack of energy Start: 05-02-2022 End: 05-02-2022 Transcribe Orders Mitzy Richter EMPLOYMENT OFFICER - OPTICAL INSTRUMENT ASSEMBLER Work Phone: [facility] Laboratory Comment on above: Encounter for screen ing for malignant neoplasm of prostate (Primary Dx) Start: 02-06-2022 End: 02-06-2022 [facility] Work Phone: Start: 02-06-2022 End: 02-06-2022 Discharged Recurring [facility]-Physical Therapy Start: 12-20-2021 ambulatory [facility] Start: 12-20-2021 End: 12-20-2021 Subsequent hospital visit by physician Abimael Elizabeth DO Work Phone: [facility] Start: 10-24-2021 ambulatory [facility] Start: 03-05-2020 End: 03-05-2020 Subsequent hospital visit by physician Navneet Jackson Work Phone: [facility] Comment on above: S/P surgical amputat ion of finger, right (Primary Dx) Start: 03-01-2020 End: 03-01-2020 Subsequent hospital visit by physician Navneet Jackson Work Phone: [facility] Comment on above: Arrived Start: 02-20-2020 End: 02-20-2020 Subsequent hospital visit by physician Abimael Elizabeth Work Phone: [facility] Start: 01-23-2020 End: 01-23-2020 Emergency department patient visit Tiffani Larry Work Phone: [facility] ED Comment on above: Cellulitis of right little finger (Primary Dx) Start: 09-20-2019 End: 09-20-2019 Subsequent hospital visit by physician Abimael Elizabeth Work Phone: [facility] Laboratory Start: 04-07-2019 End: 04-07-2019 Subsequent hospital visit by physician Abimael Elizabeth DO Work Phone: [facility] Comment on above: Arrived Start: 12-16-2017 End: 12-21-2017 Patient encounter ALEXANDRA HERNANDEZ REBEKAH [facility] Start: 11-04-2017 End: 11-05-2017 Patient encounter ALEXANDRA ROBLES [facility] Procedures Date Procedure Procedure Detail Performing Clinician Start: 01-21-2025 Assay of troponin quantitative Jade Whitt EMPLOYMENT OFFICER [employer] Work Phone: Start: 01-21-2025 Urnls dip stick/tabl et reagent auto microscopy Jade Peri EMPLOYMENT OFFICER [employer] OPTICAL INSTRUMENT ASSEMBLER Work Phone: Start: 01-21-2025 Ct abdomen & pelvis w/contrast material Jade Whitt EMPLOYMENT OFFICER - OPTICAL INSTRUMENT ASSEMBLER Work Phone: Start: 01-21-2025 Radiologic exam ches t single view Jade Whitt EMPLOYMENT OFFICER - OPTICAL INSTRUMENT ASSEMBLER Work Phone: Start: 01-21-2025 Basic metabolic pane l calcium total Jade Whitt EMPLOYMENT OFFICER [facility] Work Phone: Start: 01-21-2025 Ecg routine ecg w/le ast 12 lds trcg only w/o i&r Jade Whitt EMPLOYMENT OFFICER - OPTICAL INSTRUMENT ASSEMBLER Work Phone: Start: 01-19-2025 Anaerobic microbial culture [...] Start: 12-18-2023 PSA TOTAL (SCREENING) Oliva Cazares EMPLOYMENT OFFICER - OPTICAL INSTRUMENT ASSEMBLER Work Phone: Start: 04-17-2023 Lipid 1996 panel - S donta or Plasma Abimael Elizabeth DO Work Phone: Start: 11-28-2022 PSA TOTAL (DIAGNOSTI C POST-PROSTATECTOMY) Dean Arriaga EMPLOYMENT OFFICER - DIRECTOR CLINICAL APPLICATIONS Work Phone: Start: 05-02-2022 PSA screening Mitzy Richter EMPLOYMENT OFFICER - OPTICAL INSTRUMENT ASSEMBLER Work Phone: Start: 03-01-2020 Blood count complete automated Jose Miguel Adolfo Bhatt Work Phone: Start: 03-01-2020 Comprehensive metabo lic panel Jose Miguel Bhatt Work Phone: Start: 03-01-2020 Ecg routine ecg w/le ast 12 lds w/i&r Jose Miguel Adolfo Bhatt Work Phone: Start: 09-20-2019 [object Object] Abimael Elizabeth Comment on above: Testing performed on the [employer] [id number] using an immunometric methodology. Results obtained [...] - S donta or Plasma Dean Arriaga EMPLOYMENT OFFICER - DIRECTOR CLINICAL APPLICATIONS Work Phone: Start: 04-07-2019 ROUTINE EKG TREADMIL L STRESS TEST Abimael Elizabeth DO Work Phone: Plan of Treatment Date Care Activity Detail Author Start: 10-15-2034 RSV High Risk: (Elde rly (60+) or Population) (1 - 1-dose 75+ series) RSV High Risk: (Elderly (60+) or Population) (1 - 1-dose 75+ series) [facility] Start: 04-17-2028 Lipid panel Lipid Panel [facility] Start: 10-07-2026 DTaP/Tdap/Td vaccine (2 - Td or Tdap) DTaP/Tdap/Td vaccine (2 - Td or Tdap) [facility] Start: 10-07-2026 DTaP/Tdap/Td Vaccine s (2 - Td or Tdap) DTaP/Tdap/Td Vaccines (2 - Td or Tdap) [facility] Start: 10-07-2026 DTaP/Tdap/Td Vaccine s (3 - Td or Tdap) DTaP/Tdap/Td Vaccines (3 - Td or Tdap) [facility] Start: 02-10-2025 End: 02-10-2025 Patient encounter procedure 02/10/2025 8:50 AM EDT Office Visit [facility] [address] [place] [address] Reji Maradiaga MD [address] [place] [phone] [facility] Start: 01-26-2025 End: 01-26-2025 Evaluation of diagnostic study results [facility] Start: 01-20-2025 End: 01-20-2025 Patient encounter procedure 01/20/2025 9:20 AM EDT Office Visit [facility] [address] [place] [phone] Reji Maradiaga MD [address] [place] [phone] [facility] Start: 01-19-2025 End: 01-19-2025 Patient encounter procedure 01/19/2025 8:00 AM EDT Appointment [facility] [address] [place] [phone] Reji Maradiaga MD [address] [place] [phone] [facility] [address] Start: 01-16-2025 [facility] Start: 01-15-2025 [facility] Start: 01-14-2025 Hospital admission [facility] Start: 01-14-2025 Referral to urologist [facility] Start: 01-14-2025 [facility] Start: 01-14-2025 Bacteria identified in Urine by Culture Urine Culture [facility] Start: 01-14-2025 Urine culture [facility] Start: 01-10-2025 End: 01-10-2025 Patient encounter procedure 01/10/2025 1:15 PM EDT Appointment [facility] [address] [place] [address] Reji Maradiaga MD [address] [place] [address] [facility] [address] Start: 01-05-2025 End: 01-05-2026 MR Pelvis WO and W contrast IV MR pelvis w and wo contrast Imaging Routine Elevated PSA Expected: 01/05/2025, Expires: 01/05/2026 [facility] Work Phone: Comment on above: Expected: 01/05/2025 , Expires: 01/05/2026 Start: 12-30-2024 End: 12-30-2024 Patient encounter procedure 12/30/2024 8:40 AM EDT Office Visit [facility] [address] [place] [address] Reji Maradiaga MD [address] [place] [address] [facility] Start: 12-12-2024 COVID-19 Vaccine ( season) COVID-19 Vaccine ( season) [facility] Start: 12-12-2024 Influenza vaccination [facility] Start: 09-19-2024 Lipid panel [facility] Start: 12-28-2023 End: 12-28-2023 Patient encounter procedure [facility] Start: 12-16-2023 End: 06-14-2024 PSA screening PSA Screening Lab Routine Benign prostatic hyperplasia with nocturia Elevated PSA Expected: 12/16/2023 (Approximate), Expires: 06/14/2024 [facility] Work Phone: Comment on above: Expected: 12/16/2023 (Approximate), Expires: 06/14/2024 Start: 12-13-2023 COVID-19 Vaccine ( season) COVID-19 Vaccine () [facility] Start: 12-13-2023 COVID-19 Vaccine ( season) COVID-19 Vaccine ( season) [facility] Start: 12-13-2023 Influenza vaccination [facility] Start: 06-15-2023 End: 06-15-2023 Patient encounter procedure 06/15/2023 3:00 PM EST Office Visit [facility] [address] [facility] [address] [place] [phone] Soraya Cazares, EMPLOYMENT OFFICER - OPTICAL INSTRUMENT ASSEMBLER [address] [place], [place] [phone] [facility] Start: 05-06-2023 End: 05-06-2023 Patient encounter procedure [facility] Start: 03-24-2023 End: 12-24-2023 PSA, total and free PSA, total and free Lab Routine Elevated PSA Expected: 03/24/2023 (Approximate), Expires: 12/24/2023 [facility] Work Phone: Comment on above: Expected: 03/24/2023 (Approximate), Expires: 12/24/2023 Start: 03-03-2023 End: 03-03-2023 Patient encounter procedure 03/03/2023 2:30 PM EST Office Visit [facility] [address] [place] [phone] Sharon Linton PA-C [address] [facility] [address] [place], [place] [phone] [facility] Start: 02-20-2023 End: 02-20-2023 Admission to same day surgery center 02/20/2023 12:00 PM EST - 02/20/2023 12:45 PM EST Surgery [facility] MAIN OR [address] [place] [phone] Navneet Jackson MD [address] [employer] [facility] [address] [place], [place] [phone] LEFT MIDDLE FINGER DIGITAL MUCOUS CYST WITH POSSIBLE LOCAL TISSUE ADVANCEMENT [42791 (CPT )] [facility] MAIN OR Comment on above: LEFT MIDDLE FINGER D IGITAL MUCOUS CYST WITH POSSIBLE LOCAL TISSUE ADVANCEMENT [98721 (CPT )] Start: 02-20-2023 End: 02-20-2023 Exc lesion tdn shth/jt capsl hand/fngr EXCISION OF LEASION OF TENDON SHEATH OR LOINT CAPSULE HAND OR FINGER Ganglion, left hand 02/20/2023 12:00 PM EST [facility] Operating Room Start: 02-20-2023 Subsequent hospital visit by physician 02/20/2023 12:00 PM EST Hospital Encounter [facility] MAIN OR [address] [place] [address] Urbano, Navneet Bailon MD 1 [facility] [address] [place] [address] [facility] MAIN OR Start: 01-09-2023 End: 01-10-2024 XR Finger 2 Views [facility] [employer] [facility] Work Phone: Comment on above: Expected: 01/09/2023 , Expires: 01/10/2024 Once for 1 Occurrenc es starting 01/09/2023 until 01/09/2023 Start: 12-19-2022 End: 12-19-2022 Patient encounter procedure 12/19/2022 8:20 AM EDT Procedure Visit [facility] [address] [place] [phone] Flor Barfield DO [address] [place] [address] [facility] Start: 12-12-2022 COVID-19 Vaccine ( season) COVID-19 Vaccine ( season) [facility] Start: 12-12-2022 Influenza vaccination [facility] Start: 11-04-2022 End: 05-07-2023 PSA screening PSA Screening Lab Routine Screening PSA (prostate specific antigen) Expected: 11/04/2022 (Approximate), Expires: 05/07/2023 [facility] Work Phone: Comment on above: Expected: 11/04/2022 (Approximate), Expires: 05/07/2023 Start: 10-24-2022 Prostate specific antigen measurement Prostate Specific Antigen (PSA) Screening or Monitoring [facility] Start: 05-07-2022 End: 05-07-2023 Hematocrit [Volume Fraction] of Blood Hematocrit Lab Routine Lack of energy Expected: 05/07/2022 (Approximate), Expires: 05/07/2023 [facility] Comment on above: Expected: 05/07/2022 (Approximate), Expires: 05/07/2023 Start: 05-07-2022 End: 05-07-2023 Testosterone [Mass/volume] in Serum or Plasma Testosterone Lab Routine Lack of energy Expected: 05/07/2022 (Approximate), Expires: 05/07/2023 [facility] Comment on above: Expected: 05/07/2022 (Approximate), Expires: 05/07/2023 Start: 05-05-2022 End: 05-05-2022 Patient encounter procedure 05/05/2022 Office Visit Urology Mitzy Richter, EMPLOYMENT OFFICER - OPTICAL INSTRUMENT ASSEMBLER [address] [facility] [place] [address] [facility] Start: 12-12-2021 Influenza vaccination S [facility] Start: 03-01-2021 Creatinine measurement Creatinine mo [facility] [place] Start: 03-01-2021 Potassium monitoring Potassium monit [facility], [place] Start: 09-19-2020 Creatinine measurement Creatinine mo [facility] Start: 09-19-2020 Potassium monitoring Potassium monit [facility] [place] Start: 03-13-2020 End: 03-13-2020 Office Visit [facility] [place] Start: 03-05-2020 Hospital Encounter 03/05/2020 Hospital Encounter IP Unit Urbano, Navneet Bailon MD 1 [facility] [address] [place] [address] [phone] [facility] Dept Start: 12-13-2019 Influenza vaccination [place], [place] Start: 2019 RSV Immunization age d 60 or older (1 - 1-dose 60+ series) RSV Immunization aged 60 or older (1 - 1-dose 60+ series) [facility] Start: 2019 RSV Immunization for Adults (1 - Risk 60-74 years 1-dose series) RSV Immunization for Adults (1 - Risk 60-74 years 1-dose series) [facility] Start: 12-12-2018 Influenza vaccination Flu vaccine (# 1) [facility] Work Phone: Start: 10-15-2009 Colon cancer screen colonoscopy Colon cancer screen colonoscopy [facility] Work Phone: Start: 10-15-2009 Pneumococcal vaccination Pneum ococcal Vaccine (1 of 1 - PCV) [facility] Start: 10-15-2009 Screening for malign ant neoplasm of colon Colon cancer screen colonoscopy [place], [place] Start: 10-15-2009 Shingles Vaccine (1 of 2) Shingles Vaccine (1 of 2) [facility] Start: 10-15-2009 Zoster Vaccines (1 of 2) Zoster Vacc damon (1 of 2) [facility] Start: 10-15-2004 Screening for malign ant neoplasm of colon [facility] Start: 1999 Diabetes screen Diabetes screen [facility] Work Phone: Start: 1999 Lipid panel Lipid screen [place], [place] Start: 1999 Lipid screen Lipid screen [facility] Work Phone: Start: 10-15-1978 DTaP/Tdap/Td vaccine (1 - Tdap) DTaP/Tdap/Td vaccine (1 - Tdap) [place] Start: 10-15-1978 Pneumococcal Vaccine : 50+ Years (1 of 2 - PCV) Pneumococcal Vaccine: 50+ Years (1 of 2 - PCV) [facility] Start: 10-15-1977 Diabetes mellitus screening Diabetes Screening [facility] Start: 10-15-1977 Hepatitis C screening S [facility] Start: 10-15-1974 HIV screen HIV screen [facility] Work Phone: Start: 10-15-1974 HIV screening HIV screen [facility] Start: 1971 Depression Screen Depression Screen [facility] Start: 1971 Depression Screening Depression Scre ening [facility] Start: 10-15-1970 DTaP/Tdap/Td vaccine (1 - Tdap) DTaP/Tdap/Td vaccine (1 - Tdap) [facility] Work Phone: Start: 10-15-1960 MMR Vaccines (1 of 1 - Standard series) MMR Vaccines (1 of 1 - Standard series) [facility] Start: 04-17-1960 COVID-19 Vaccine (#1) COVID-19 Vacci ne (#1) [facility] Start: 1959 Annual wellness visit Medicare Initial Physical (IPPE) [facility] Start: 1959 Creatinine measurement Creatinine mo nitoring [place], [place] Start: 1959 Creatinine monitoring Creatinine mon itoring [facility] Work Phone: Start: 1959 Hepatitis B Vaccines (1 of 3 - 3-dose series) Hepatitis B Vaccines (1 of 3 - 3-dose series) [facility] Start: 1959 Hepatitis C screen Hepatitis C scree n [facility] Work Phone: Start: 1959 Hepatitis C screening Hepatitis C sc reen [place], [place] Start: 1959 HIV screening HIV Screening [facility] Start: 1959 Medicare Annual Well ness (AWV) Medicare Annual Wellness (AWV) [facility] Start: 1959 Potassium monitoring Potassium monit oring [facility] Work Phone: Start: 1959 Screening for malign ant neoplasm of colon [facility] Start: 1959 Yearly Adult Physical Yearly Adult P [facility] End: 03-05-2020 Blood glucose - POCT Blood glucose - POCT Point of Care Testing STAT One Time for 1 Occurrences starting 03/05/2020 until 03/05/2020 [place] Comment on above: One Time for 1 Occur rences starting 03/05/2020 until 03/05/2020 End: 06-15-2024 Cardiac event monitor (14 days) [facility] [employer] Work Phone: Comment on above: Once for 1 Occurrenc es starting 06/15/2024 until 06/15/2024 End: 03-05-2020 Creatinine [Mass/Vol] Creatinine, serum Lab STAT One Time for 1 Occurrences starting 03/05/2020 until 03/05/2020 [employer] [facility] Comment on above: One Time for 1 Occur rences starting 03/05/2020 until 03/05/2020 End: 11-03-2024 CT for calcium scoring WO contrast and CTA W contrast IV Heart and coronary arteries [facility] Service Area Work Phone: Comment on above: Once for 1 Occurrenc es starting 11/03/2024 until 11/03/2024 CTA Heart and Heard ry arteries W contrast IV [facility] EKG 12 Lead EKG 12 Lead ECG Routine 03/01/2020 11:35 AM EST [facility] End: 03-05-2020 Intermittent pulse oximetry Pulse Oximetry Spot Check Respiratory Care Routine One Time for 1 Occurrences starting 03/05/2020 until 03/05/2020 [employer] [facility] Comment on above: One Time for 1 Occur rences starting 03/05/2020 until 03/05/2020 End: 01-10-2025 MR Pelvis WO and W contrast [facility] Work Phone: Comment on above: Once for 1 Occurrenc es starting 01/10/2025 until 01/10/2025 OUTSIDE PROCEDURE SCAN OUTSIDE P ROCEDURE SCAN Procedures Ordered: 05/02/2022 [facility] [employer] Comment on above: Ordered: 05/02/2022 OUTSIDE PROCEDURE SCAN OUTSIDE P ROCEDURE SCAN Procedures Ordered: 04/30/2023 [facility] [employer] [facility] Comment on above: Ordered: 04/30/2023 OUTSIDE PROCEDURE SCAN OUTSIDE P ROCEDURE SCAN Procedures Ordered: 04/17/2023 [facility] [employer] Comment on above: Ordered: 04/17/2023 OUTSIDE PROCEDURE SCAN OUTSIDE P ROCEDURE SCAN Procedures Ordered: 05/01/2023 [facility] Comment on above: Ordered: 05/01/2023 OUTSIDE PROCEDURE SCAN OUTSIDE P ROCEDURE SCAN Procedures Ordered: 05/17/2024 [facility] Comment on above: Ordered: 05/17/2024 Oxygen therapy [[facility] Data Set] Initiate Oxygen Therapy Protocol Respiratory Care Routine Daily until discontinued starting 03/05/2020 [facility] Comment on above: Daily until disconti nued starting 03/05/2020 Patient Education Know your Meds [facility] Work Phone: Patient referral [facility] Work Phone: Phase I & II - meter ed glucose Phase I & II - metered glucose Point of Care Testing Routine As Needed until discontinued starting 03/05/2020 [facility] Comment on above: As Needed until disc ontinued starting 03/05/2020 End: 03-05-2020 Potassium w/ Reflex to Magnesium Potassium w/ Reflex to Magnesium Lab Routine One Time for 1 Occurrences starting 03/05/2020 until 03/05/2020 [facility] Comment on above: One Time for 1 Occur rences starting 03/05/2020 until 03/05/2020 End: 03-05-2020 , urine , urine Lab STAT One Time for 1 Occurrences starting 03/05/2020 until 03/05/2020 [facility] Comment on above: One Time for 1 Occur rences starting 03/05/2020 until 03/05/2020 End: 03-05-2020 Protime-INR Protime-INR Lab STAT One Time for 1 Occurrences starting 03/05/2020 until 03/05/2020 [facility] Comment on above: One Time for 1 Occur rences starting 03/05/2020 until 03/05/2020 Spirometry panel Incentive krzysztof metry Respiratory Care Routine Q1H PRN until discontinued starting 03/05/2020 [facility] Comment on above: Q1H PRN until discon tinued starting 03/05/2020 Tissue exam [facility] Work Phone: US Heart [facility] End: 05-01-2023 US Retroperitoneum [facility] Work Phone: Comment on above: Once for 1 Occurrenc es starting 05/01/2023 until 05/01/2023 XR Hand - right 3 Views XR hand 3+ views right Imaging Routine 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 01/09/2023 10:20 AM EDT [employer] End: 02-20-2020 XR HAND RIGHT (MIN 3 VIEWS) XR HAND RIGHT (MIN 3 VIEWS) Imaging Routine Once for 1 Occurrences starting 02/20/2020 until 02/20/2020 [employer] PAHAMZAH Comment on above: Once for 1 Occurrenc es starting 02/20/2020 until 02/20/2020 XR HAND RIGHT (MIN 3 VIEWS) XR HAND RIGHT (MIN 3 VIEWS) Imaging Routine 02/20/2020 5:00 PM EST [employer] PAHAMZAH End: 05-01-2023 XR Lumbar spine Views W flexion and W extension [employer] Work Phone: Comment on above: Once for 1 Occurrenc es starting 05/01/2023 until 05/01/2023 End: 12-20-2021 XR Shoulder Right 2 [employer] Work Phone: Comment on above: Once for 1 Occurrenc es starting 12/20/2021 until 12/20/2021 Immunizations Immunization Date Immunization Notes Care Provider Fa monica 02-01-2014 influenza virus vaccine, unspecified formulation Reji Maradiaga MD Work Phone: [employer] NEGATED: Highlighted row has not occurred!01-21-2025 Seasonal trivalent influenza vaccine, adjuvanted, preservative free Abimael Moseley MD Work Phone: [employer] Comment on above: Deferred: Patient Re fused - Pt educated on benefits of flu shot. Pt insisted refusal. Payers Date Payer Category Payer Medicare MEDICARE PART A AND B [id number] 2025 Medicare supplementa l policy (as second payer) [id number] 2025 Medicare [id number] 2025 Unknown [id number] 2024 Self-pay [id number] 2016 Commercial Managed C are - HMO [facility] UMR OPT [id number] 2016 Managed Care (Private) [facility] [employer] [id number] 2016 Private Health Insurance [id number] 2014 Unknown [facility] UMR [id number] 2014-Present [address] [place] [address] xxxxxxxx [id number]. [id number] 2014 Unknown [id number] 1.2.840.341127.1.13.239. 2.7.3.471289.315 1959 Unknown [id number] 2.16.840.1.153601.3.579. 2.668 1959 Unknown [id number] 2.16.840.1.515424.3.579. 2.668 1959 Unknown [id number] 2.16.840.1.373723.3.579. 2.1243 1959 Unknown [id number] 2.16.840.1.719620.3.579. 2.718 Unknown Unknown [id number] 2.16.840.1.481810.3.579. 2.531 Unknown [id number] 2.16.840.1.995452.3.579. 2.462 Unknown [id number] 2..840.1.130224.3.579. 2.462 Unknown [id number] 2..840.1.018767.3.579. 2.462 Unknown [id number] 2.16.840.1.986750.3.579. 2.462 Unknown [id number] 2.16.840.1.247031.3.579. 2.462 Unknown [id number] 2..840.1.387162.3.579. 2.462 Unknown [id number] 2.16.840.1.496974.3.579. 2.462 Unknown [id number] 2.16.840.1.213751.3.579. 2.462 Unknown [id number] 2.16.840.1.326414.3.579. 2.462 Unknown [id number] 2.16.840.1.331811.3.579. 2.462 Unknown [id number] 2.16.840.1.662506.3.579. 2.462 Unknown [id number] 2.16.840.1.338456.3.579. 2.462 Unknown [id number] 2.16.840.1.180606.3.579. 2.462 Unknown [id number] 2.16.840.1.431771.3.579. 2.462 Unknown [id number] 2.16.840.1.444071.3.579. 2.462 Unknown [id number] 2.16.840.1.122372.3.579. 2.462 Unknown [id number] 2.16.840.1.225172.3.579. 2.462 Unknown [id number] 2.16.840.1.476687.3.579. 2.462 Unknown [id number] 2.16.840.1.615181.3.579. 2.462 Unknown [id number] 2.16.840.1.233416.3.579. 2.462 Social History Date Type Detail Facility Start: 04-07-2019 End: 12-19-2022 Tobacco smoking status TXIS Former smoker [employer] Phone: End: 04-13-1980 History of tobacco use Current smoker [employer] Phone: End: 04-13-1980 History of tobacco use Cigarette Smoker [employer] Phone: Start: 04-07-2019 End: 01-24-2025 Cigarettes smoked current (pack per day) - Reported [facility] [employer] Start: 1960 Sex Assigned At Not on file [employer] Phone: Start: 04-07-2019 End: 12-19-2022 Tobacco use and exposure Never used [place] Start: 03-01-2020 End: 01-22-2025 Alcohol intake Current drinker of alcohol (finding) [place] Start: 03-01-2020 Alcohol Comment occasiional [place] Start: 04-27-2022 End: 05-07-2022 Exposure to SARS-CoV-2 (event) Not sure [place] Start: 11-26-2017 Tobacco smoking status TXIS Unknown if ever smoked [facility] Work Phone: Start: 1960 Sex Assigned At Male [facility] Start: 10-07-2021 End: 01-24-2025 Tobacco use panel [facility] Start: 11-11-2021 Sex Male (finding) [facility] Start: 10-31-2024 Sex Male [facility] Start: 11-03-2024 Gender identity Identifies as male gender (finding) [facility] Start: 01-14-2025 End: 01-14-2025 Tobacco smoking status NHIS Never smoked tobacco (finding) [facility] How often to you hav e a drink containing alcohol? Never [facility] Within the last year , have you been afraid of your partner or ex-partner? No [facility] Are you now , , , , never or living with a partner? [facility] How often to you hav e a drink containing alcohol? 4 or more times a week [facility] How many standard drinks containing alcohol do you have on a typical day? 1 or 2 [facility] Start: 01-22-2025 Sexual orientation Heterosexual (finding) [facility] (I/We) worried lori er (my/our) food would run out before (I/we) got money to buy more. Never true [facility] Medical Equipment Procedure Code Equipment Code [...] 25 12:26 PM EDT Shania Ontiveros RN [facility] 01-16-2025 Functional status Patient is Pro gressing Toward Baseline [facility] Work Phone: [facility] Mental Status Date Assessment Result Facility 01-16-2025 Cognitive function Cognitive Sta tus Patient at Baseline [facility] Work Phone: Clinical Notes [...] been made to Dr. Vishnu Monique at [facility] Review of Systems Past Medical History: [...] is not in an institution (hospital or fdc) I will hold off on changing the catheter at this time. We discussed the reasoning behind not keeping the on continuous oral antibiotic therapy. Topical meatal Neosporin is excellent. Continue finasteride and tamsulosin Bladder spasms controlled with solifenacin 10 mg BID. They have appointment to see Dr. Monique at [facility] to discuss HoLEP. I think this is an excellent surgical choice for him, and I have explained to the patient that he is in good hands with Dr. Monique. Reji Maradiaga MD 02/10/25 8:01 PM Live in [facility] ([facility]). Brother: Dr. Froylan Toribio. Nephew: Dr. Aden Toribio (ortho). PSA density 0.05 02/10/2025: Call to [place] via Call Center: Bladder spasms controlled with solifenacin 10 mg BID. They have appointment to see Dr. Monique at [facility] to discuss HoLEP. I think this [...] has sediment coming out and cloudy. Tiffani [phone] 09:08 LR patient is on the way home from out of town, he is asking if he needs to go to the ED for possible antibiotic and evaluation My response: Does not need to go to ED. Should go to a store Like [employer] or a large grocery store and Purchase [...] 10.300 12/18/2023: PSA: 5.480 10/09/2023: PSA: 8.670 (Pearl) 04/20/2023: PSA: 7.200 w/ 31% free (Pearl) 11/28/2022: PSA: 7.440 10/31/2022: PSA: 6.670 05/02/2022: PSA: 4.588 10/24/2021: PSA: 4.256 09/20/2019: PSA: 3.523 [1] Past Medical History: Diagnosis Date Benign prostatic hyperplasia 3 or 4 years ago Elevated PSA Late 2020 Erectile dysfunction Summer 2020 H/O exercise stress test Hypertension MACY on CPAP Osteomyelitis (HCC) RIGHT RING FINGER AND SCHEDULED FOR THE SURGERY ON 03/05/20 AT [facility] [2] Past Surgical History: Procedure Laterality Date CHOLECYSTECTOMY [facility] COLONOSCOPY COLONOSCOPY 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 arthrotomy DIP joint long finger with excision of osteophytes. Dr Jackson OTHER SURGICAL HISTORY EXCISION OF LIPOMA FROM THE BACK AT SURGERY [place] LONG TIME AGO SCAPHOID FRACTURE SURGERY Right [facility] WISDOM TOOTH EXTRACTION [3] Family History Problem Relation Name Age of Onset Arthritis Mother Rachel Toribio Arthritis Father Franki Toribio Hearing loss Father Franki Toribio documented in this encounter [facility] 02-05-2025 Telephone encounter Note Form atting of this note might be different from the original. 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 Patient feels he may have a UTI I E Scribed Bactrim DS one PO BID # 10 [place] [facility] 02-05-2025 Miscellaneous Notes Formattin g of this note might be different from the original. 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 Patient feels he may have a UTI I E Scribed Bactrim DS one PO BID # 10 [place] documented in this encounter [facility] 02-05-2025 Telephone encounter Note Form atting [...] ED. Should go to a store Like [employer] or a large grocery store and Purchase [...] used: Urinary Catheter (e.g., Mendoza) Symptoms and Kcohidssk-[id number] [facility] 02-05-2025 Miscellaneous Notes Formattin g of [...] ED. Should go to a store Like [employer] or a large grocery store and Purchase [...] used: Urinary Catheter (e.g., Mendoza) Symptoms and [id number] documented in this encounter [facility] 01-26-2025 Progress note [facility] 01-24-2025 Nurse Note Patient discharged at this time. Patient had IV removed prior to discharge. Patient Left with all documented belongings. AVS reviewed with nurse, all questions answered. Patient taken to main entrance for discharge via wheelchair by NST. [facility] 01-24-2025 Nurse Note Patient discharged at this time. Patient had IV removed prior to discharge. Patient Left with all documented belongings. AVS reviewed with nurse, all questions answered. Patient taken to main entrance for discharge via wheelchair by NST. documented in this encounter [facility] 01-24-2025 Note Hospitalist Discharg e Summary Stephane Toribio : 1960 Admit date: 01/21/2025 Discharge date: 01/24/2025 Admitting Physician: Mortzea Rene MD Primary Care Physician: Abimael Elizabeth [...] HYDROcodone-acetaminophen 5-325 MG tablet Commonly known as: Eloy Take 1 tablet by mouth every 6 [...] Your Medications These medications were sent to [facility]/pharmacy [address] [place] [id number] HYDROcodone-acetaminophen 5-325 MG tablet phenazopyridine 200 MG tablet Recommended Follow-up: No follow-up provider specified. Complexity of Follow up: [] Moderate Complexity: follow up within 7-14 calendar days (44992) [x] Severe Complexity: follow up within 7 calendar days (83693) Follow up Testing, Pending results or Referrals [...] your hospital stay? (more content not included)... [facility] 01-24-2025 Hospital course Narrative Hospitalist Discharge [...] HYDROcodone-acetaminophen 5-325 MG tablet Commonly known as: Eloy Take 1 tablet by mouth every 6 [...] Your Medications These medications were sent to [facility]/pharmacy #[id number] [address] HYDROcodone-acetaminophen 5-325 MG tablet phenazopyridine 200 MG tablet Recommended Follow-up: No follow-up provider specified. Complexity of Follow up: [] Moderate Complexity: follow up within 7-14 calendar days (22151) [x] Severe Complexity: follow up within 7 calendar days (85876) Follow up Testing, Pending results or Referrals [...] Moreno MD Division of Hospitalist Medicine Acute [facility] 01/24/2025, 1:42 PM documented in this encounter [facility] 01-23-2025 Note Urology Plan of Care [...] for possible Holep w/ Dr. Monique at [facility]. Discussed w/ patient about need for catheter given chronic retention symptoms and episode of AUR in setting of massive prostate. Patient w/ CYU in bag. Patient agreeable to plan. At this time, Urology will sign off. Will coordinate outpatient follow up. Please page home connect lpn urology resident with any questions or concerns. Isaak Ramires Urology PGY-1 01/23/2025 4:55 PM Please page Nitroglycerin Distributor Urology Resident with questions [facility] 01-23-2025 Plan of care note Images [...] for possible Holep w/ Dr. Monique at [facility]. Discussed w/ patient about need for catheter given chronic retention symptoms and episode of AUR in setting of massive prostate. Patient w/ CYU in bag. Patient agreeable to plan. At this time, Urology will sign off. Will coordinate outpatient follow up. Please page home connect lpn urology resident with any questions or concerns. Isaak Ramires Urology PGY-1 01/23/2025 4:55 PM Please page [employer] Urology Resident with questions [email or web address] Phone: 01-23-2025 Miscellaneous Notes Images from the [...] for possible Holep w/ Dr. Monique at [facility]. Discussed w/ patient about need for catheter given chronic retention symptoms and episode of AUR in setting of massive prostate. Patient w/ CYU in bag. Patient agreeable to plan. At this time, Urology will sign off. Will coordinate outpatient follow up. Please page home connect lpn urology resident with any questions or concerns. Isaak Ramires Urology PGY-1 01/23/2025 4:55 PM Please page [employer] Urology Resident with questions Care Management Progress [...] still Wait: Administering IV medications, Clinical stability, Security Advisor recommendations (comment) Length of Stay (Days): 0 GMLOS: No GMLOS Documented documented in this encounter [facility] 01-23-2025 Note Care Management Prog ress [...] still Wait: Administering IV medications, Clinical stability, Security Advisor recommendations (comment) Length of Stay (Days): 0 GMLOS: No GMLOS Documented [facility] 01-23-2025 Progress note Formatting of t [...] still Wait: Administering IV medications, Clinical stability, Security Advisor recommendations (comment) Length of Stay (Days): 0 GMLOS: No GMLOS Documented [facility] 01-23-2025 Note Hospitalist Progress Note 01/23/2025 [...] Spouse Joann PerkinsDO Division of Hospitalist Medicine [facility] care [facility] [1] Past Medical History: Diagnosis Date [...] OR ondansetron, poly (more content not included)... [facility] 01-23-2025 History of Presen t illness Narrative Hospitalist Progress Note 01/23/2025 Subjective: Admit Date: 01/21/2025 PCP: Abimael Elizabeth, DO Room#: E5-817/E5-500 A Interval History: No acute events reported [...] Joann Perkins DO Division of Hospitalist Medicine [facility] [1] Past Medical History: Diagnosis Date Benign prostatic hyperplasia 3 or 4 years ago Elevated PSA Late 2020 Erectile dysfunction Summer 2020 H/O exercise stress test Hypertension MACY on CPAP Osteomyelitis (HCC) RIGHT RING FINGER AND SCHEDULED FOR THE SURGERY ON 03/05/20 AT [facility]ERY [place] [2] aspirin, 81 mg, Oral, Daily cefTRIAXone, [...] be monitored and followed by the diet wind energy technician. Cheyenne Nichole DT Hospitalist Progress Note [...] Spouse Joann PerkinsDO Division of Hospitalist Medicine [facility] [1] Past Medical History: Diagnosis Date Benign prostatic hyperplasia 3 or 4 years ago Elevated PSA Late 2020 Erectile dysfunction Summer 2020 H/O exercise stress test Hypertension MACY on CPAP Osteomyelitis (HCC) RIGHT RING FINGER AND SCHEDULED FOR THE SURGERY ON 03/05/20 AT [facility] [2] aspirin, 81 mg, Oral, Daily [...] (PEG) 3350 [4] documented in this encounter [facility] 01-23-2025 Telephone encounter Note Pt is currently admitted. Pt was referred to Dr. Monique by Dr. Moseley to discuss surgery. Sent pt My Chart message with this information. [facility] 01-23-2025 Miscellaneous Notes Pt is currently [...] information for pt to schedule with Dr oMseley. Office Name: Urology documented in this encounter [facility] 01-23-[address] Moseley placed a referral to Dr. Monique with [facility]. Pt is currently admitted, sent My Chart with message about referral. [facility] 01-23-2025 Telephone encounter Note Patient was gave message verbatim per Dr. Moseley. Pt phone was very statically but he was able to hear me I just couldn't hear him. [facility] 01-22-2025 Note Hospitalist Progress Note 01/22/2025 [...] Joann Perkins DO Division of Hospitalist Medicine [facility] [1] Past Medical History: Diagnosis Date Benign prostatic hyperplasia 3 or 4 years ago Elevated PSA Late 2020 Erectile dysfunction Summer 2020 H/O exercise stress test Hypertension MACY on CPAP Osteomyelitis (HCC) RIGHT RING FINGER AND SCHEDULED FOR THE SURGERY ON 03/05/20 AT [facility] [2] aspirin, 81 mg, Oral, Daily [...] OR ondansetron, polyethylene glycol (PEG) 3350 [4] [facility] 01-22-[address] Kayden Tillman [facility] 01-22-2025 Telephone encounter Note Referral to Dr Kayden Tillman [facility] 01-22-2025 Miscellaneous Notes Referral to Dr Kayden Tillman documented in this encounter [facility] 01-21-2025 History and physical note Attending [...] - DO NOT do CPR, intubation] [_] [DNR-AUDIO ENGINEER - Comfort care only] [_] DNR form [...] Chuck Rodríguez MD Division of Hospitalist Medicine [facility] [1] Past Medical History: Diagnosis Date Benign prostatic hyperplasia 3 or 4 years ago Elevated PSA Late 2020 Erectile dysfunction Summer 2020 H/O exercise stress test Hypertension MACY on CPAP Osteomyelitis (HCC) RIGHT RING FINGER AND SCHEDULED FOR THE SURGERY ON 03/05/20 AT [facility] [2] Past Surgical History: Procedure Laterality Date CHOLECYSTECTOMY [facility] COLONOSCOPY COLONOSCOPY 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 arthrotomy DIP joint long finger with excision of osteophytes. Dr Jackson OTHER SURGICAL HISTORY EXCISION OF LIPOMA FROM THE BACK AT [facility] LONG TIME AGO SCAPHOID FRACTURE SURGERY Right [facility] WISDOM TOOTH EXTRACTION [3] Family History Problem [...] Mite Extract Unknown [employer] T [facility] 01-21-2025 Note Attending History an d [...] Data: (CAT1) Rev (more content not included)... [facility] 01-21-2025 History and physical note Attending [...] - DO NOT do CPR, intubation] [_] [DNR-AUDIO ENGINEER - Comfort care only] [_] DNR form [...] Chuck Rodríguez MD Division of Hospitalist Medicine [facility] [1] Past Medical History: Diagnosis Date Benign prostatic hyperplasia 3 or 4 years ago Elevated PSA Late 2020 Erectile dysfunction Summer 2020 H/O exercise stress test Hypertension MACY on CPAP Osteomyelitis (HCC) RIGHT RING FINGER AND SCHEDULED FOR THE SURGERY ON 03/05/20 AT [facility] [2] Past Surgical History: Procedure Laterality Date CHOLECYSTECTOMY [facility] COLONOSCOPY COLONOSCOPY 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 arthrotomy DIP joint long finger with excision of osteophytes. Dr Jackson OTHER SURGICAL HISTORY EXCISION OF LIPOMA FROM THE BACK AT [facility] LONG TIME AGO SCAPHOID FRACTURE SURGERY Right [facility] WISDOM TOOTH EXTRACTION [3] Family History Problem [...] [employer] documented in this encounter [facility] 01-21-2025 Consult note Formatting of th [...] SCHEDULED FOR THE SURGERY ON 03/05/20 AT [facility] [2] Past Surgical History: Procedure Laterality Date CHOLECYSTECTOMY [facility] COLONOSCOPY COLONOSCOPY 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 arthrotomy DIP joint long finger with excision of osteophytes. Dr Jackson OTHER SURGICAL HISTORY EXCISION OF LIPOMA FROM THE BACK AT [facility] LONG TIME AGO SCAPHOID FRACTURE SURGERY Right [facility] WISDOM TOOTH EXTRACTION [3] Allergies Allergen Reactions [...] referred him to Dr Vishnu Monique at [facility] for Holep Abimael Moseley MD [facility] [employer] Work Phone: 01-21-2025 Consult note Formatting of [...] SCHEDULED FOR THE SURGERY ON 03/05/20 AT [facility] [2] Past Surgical History: Procedure Laterality Date CHOLECYSTECTOMY [facility] COLONOSCOPY COLONOSCOPY 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 arthrotomy DIP joint long finger with excision of osteophytes. Dr Jackson OTHER SURGICAL HISTORY EXCISION OF LIPOMA FROM THE BACK AT [facility] LONG TIME AGO SCAPHOID FRACTURE SURGERY Right [facility] WISDOM TOOTH EXTRACTION [3] Allergies Allergen Reactions [...] referred him to Dr Vishnu Monique at [facility] for Holep Abimael Moseley MD documented in this encounter [facility] 01-21-2025 Emergency department Note Bladder irrigated at bedside - 60 ml in but EMPLOYMENT OFFICER was unable to pull any urine out. Pt stating he feels full and like he has to pee. Pt denies any pain at this time and tolerated procedure well. [facility] 01-21-2025 Emergency department Note Bladder irrigated at bedside - 60 ml in but EMPLOYMENT OFFICER was unable to pull any urine out. [...] states he was seen evaluated 01/15/2025 in [facility] in [place] for urinary retention and hematuria. Patient underwent [...] MG TABLET Take 5 mg by mouth. [employer] Take by [...] or rigidity negative for Fleming sign and Donnellson's point tenderness. No peritoneal signs noted. : [...] of shift at 1900 [facility] Verena Hidalgo please see her note [...] FOR THE SURGERY ON 03/05/20 AT [facility] [place] [2] Past Surgical History: Procedure Laterality Date CHOLECYSTECTOMY [facility] COLONOSCOPY COLONOSCOPY 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 arthrotomy DIP joint long finger with excision of osteophytes. Dr Jackson OTHER SURGICAL HISTORY EXCISION OF LIPOMA FROM THE BACK AT [facility] LONG TIME AGO SCAPHOID FRACTURE SURGERY Right [facility] WISDOM TOOTH EXTRACTION [3] Family History Problem [...] 01/21/2025 11:54 PM EDT Emergency Department Encounter [facility] EMERGENCY DEPT Patient: Stephane Toribio : [...] ED course/MDM: ED Course as of 01/21/25 0487 Sat Jan 21, 2025 181 Patient presenting [...] Muñiz MD [TB] Jade Whitt APRN - OPTICAL INSTRUMENT ASSEMBLER Diagnoses as of 01/21/252256 Bladder spasm Lower [...] provider for clarification.) Vani Muñiz MD 01/21/25 6097 Emergency Department Encounter Location: [facility] UNIT [facility]E Patient: Stephane Toribio : 1960 [...] 349 ms QTC Interval 420 ms P [place] 60 degrees QRS [place] 45 degrees T Wave [place] 62 degrees [place] Interval 154 ms Basic metabolic panel Collection [...] Mini-Bag Plus (0 mg IntraVENous Stopped 01/21/25 5734) aspirin EC tablet 81 mg (81 mg [...] mg (40 mg SubCUTAneous Given 01/21/252323) HYDROcodone-acetaminophen (Eloy) 5-325 MG per tablet 1 tablet (1 [...] 3:36 PM EDT documented in this encounter [facility] 01-21-2025 Physician Emergency department Note EMERGENCY [...] states he was seen evaluated 01/15/2025 in [facility] in [place] for urinary retention and hematuria. Patient underwent [...] or rigidity negative for Fleming sign and Donnellson's point tenderness. No peritoneal signs noted. : [...] SCHEDULED FOR THE SURGERY ON 03/05/20 AT [facility] [2] Past Surgical History: Procedure Laterality Date CHOLECYSTECTOMY [facility] COLONOSCOPY COLONOSCOPY 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 arthrotomy DIP joint long finger with excision of osteophytes. Dr Jackson OTHER SURGICAL HISTORY EXCISION OF LIPOMA FROM THE BACK AT [facility] LONG TIME AGO SCAPHOID FRACTURE SURGERY Right [facility] WISDOM TOOTH EXTRACTION [3] Family History Problem [...] Muñiz MD at 01/21/2025 11:54 PM EDT [facility] 01-21-2025 Physician Emergency department Note Emergency Department Encounter [facility] EMERGENCY DEPT Patient: Stephane Toribio : [...] ED course/MDM: ED Course as of 01/21/25 5447 Sat Jan 21, 2025 1811 Patient presenting [...] [JS] Vani Muñiz MD [TB] Jade Whitt, EMPLOYMENT OFFICER - OPTICAL INSTRUMENT ASSEMBLER Diagnoses as of 01/21/252256 Bladder spasm Lower [...] for clarification.) Vani Muñiz MD 01/21/252257 T [facility] 01-21-2025 Physician Emergency department Note Emergency Department Encounter Location: [facility] OBSERVATION UNIT 5E Patient: Stephane Toribio [...] 349 ms QTC Interval 420 ms P [place] 60 degrees QRS [place] 45 degrees T Wave [place] 62 degrees [place] Interval 154 ms Basic metabolic panel Collection [...] mg (40 mg SubCUTAneous Given 01/21/252323) HYDROcodone-acetaminophen (Eloy) 5-325 MG per tablet 1 tablet (1 [...] Muñiz MD at 01/23/2025 3:36 PM EDT [facility] 01-20-2025 Telephone encounter Note Name of Caller: Stephane Contact Reason for Appointment: Pt called to request an appointment with Dr Moseley for surgery. Please provide information for pt to schedule with Dr Moseley. Office Name: Urology [facility] 01-20-2025 History of Presen t illness Narrative [...] into urinary retention. He was seen in [facility] ER on 01/17/2025 for catheter evaluation. He underwent cystoscopy and fulguration of prostatic bleeders by Dr. Hitesh Nava at [facility] in [place] on 01/15/25 Review of Systems Past Medical [...] daily. 01/02/25 04/02/25 Reji Maradiaga MD HYDROcodone-acetaminophen (Eloy) 5-325 MG tablet Take 1 tablet by [...] chew, or split. 01/17/25 07/16/25 Katty Vee, EMPLOYMENT OFFICER - OPTICAL INSTRUMENT ASSEMBLER tamsulosin (Flomax) 0.4 MG 24 hr capsule [...] Pulmonary effort is normal. Genitourinary: Comments: 24 [place] three-way Mendoza in place with third port [...] 10.300 12/18/2023: PSA: 5.480 10/09/2023: PSA: 8.670 (Pearl) 04/20/2023: PSA: 7.200 w/ 31% free (Pearl) 11/28/2022: PSA: 7.440 10/31/2022: PSA: 6.670 05/02/2022: [...] SCHEDULED FOR THE SURGERY ON 03/05/20 AT [facility] [2] Past Surgical History: Procedure Laterality Date CHOLECYSTECTOMY [facility] COLONOSCOPY COLONOSCOPY 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 arthrotomy DIP joint long finger with excision of osteophytes. Dr Jackson OTHER SURGICAL HISTORY EXCISION OF LIPOMA FROM THE BACK AT [facility] LONG TIME AGO SCAPHOID FRACTURE SURGERY Right [facility] WISDOM TOOTH EXTRACTION [3] Family History Problem Relation Name Age of Onset Arthritis Mother Rachel Toribio Arthritis Father Franki Toribio Hearing loss Father Franki Toribio documented in this encounter [facility] 01-17-2025 Hospital Discharg e instructions Verena Hidalgo PA-C - 01/17/2025 4:49 PM EDT Keep your appointment for Thursday with urology. Take your medications as prescribed. Return to the emergency department should anything change or worsen. documented in this encounter [facility] 01-17-2025 Consult note Formatting of th is note is different from the original. Urology Inpatient Consultation 01/17/2025 HISTORY OF PRESENT ILLNESS: The patient is a 64 y.o.male who presented to [facility] ED. Past medical history as listed below. 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 arthrotomy DIP joint long finger with excision of osteophytes. Dr Jackson OTHER SURGICAL HISTORY EXCISION OF LIPOMA FROM THE BACK AT [facility] LONG TIME AGO SCAPHOID FRACTURE SURGERY Right [facility] WISDOM TOOTH EXTRACTION [3] Allergies Allergen Reactions [...] additional questions or concerns On-Call Finder --> [facility] Urology Page on-call resident(s) first Flor Barfield DO [facility] Urology [facility] Work Phone: 01-17-2025 Consult note Formatting of th is note is different from the original. Urology Inpatient Consultation 01/17/2025 HISTORY OF PRESENT ILLNESS: The patient is a 64 y.o.male who presented to [facility] for [facility] ED. Past medical history as listed below. [...] Past Surgical History: Procedure Laterality Date CHOLECYSTECTOMY [facility] COLONOSCOPY COLONOSCOPY 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 arthrotomy DIP joint long finger with excision of osteophytes. Dr Jackson OTHER SURGICAL HISTORY EXCISION OF LIPOMA FROM THE BACK AT [facility] LONG TIME AGO SCAPHOID FRACTURE SURGERY Right [facility] WISDOM TOOTH EXTRACTION [3] Allergies Allergen Reactions [...] additional questions or concerns On-Call Finder --> [facility] Urology Page on-call resident(s) first Flor Barfield DO [facility] Urology documented in this encounter [facility] 01-17-2025 Emergency department Note Emptied mendoza for 950ml. [facility] 01-17-2025 Emergency department Note Emptied mendoza for 950ml. Emergency Department Encounter [facility] EMERGENCY DEPT Patient: Stephane Toribio : [...] MD 01/17/25 1334 documented in this encounter [facility] 01-17-2025 Physician Emergency department Note Emergency Department Encounter [facility] EMERGENCY DEPT Patient: Stephane Toribio : [...] to contact the dictating provider for clarification Byorn Yin MD [facility] Byron Yin MD 01/17/25 5794 [email or web address] Phone: 01-17-2025 Telephone encounter Note I sent in some vesicare. I would recommend stopping the levsin while taking the vesicare. I didn't see this medication on his med list. [email or web address] Phone: 01-17-2025 Miscellaneous Notes I sent in some vesicare. I would recommend stopping the levsin while taking the vesicare. I didn't see this medication on his med list. Pt is taking levsin for spasms and is not really helping . Can the antispasmodic be changed ? documented in this encounter [facility] 01-17-2025 Telephone encounter Note Given this new situation, I think that the best course of action would be for the patient to be seen by Dr. Powell or Dr. Moseley to discuss robotic suprapubic prostatectomy [facility] 01-17-2025 Miscellaneous Notes Given this new situation, [...] office to advise patient is currently admitted [facility]. Thursday he was unable to urinate. He went to the ED. They released him with a catheter. Thursday he went back to ED due to catheter being clogged with blood clots. Dr. Nava did a procedure to help stop the bleeding from the prostate. Patient remains on continuous bladder irrigation. Patient will possibly released to go home today or transferred to [facility]. Patient spouse will call office later today to advise. Patient would like to move forward with Biopsy as soon as possible. [facility] medical records should be faxed over from their office as well for Dr. Maradiaga. Pt agrees to OV on 02/10/[address] Maradiaga in [place] The patient's prostate is markedly enlarged. There are several areas of irregularity within the prostate. I would like to see the patient in the office so that I can review these images with him and make some plans moving forward documented in this encounter [facility] 01-17-2025 Telephone encounter Note Pt is taking levsin for spasms and is not really helping . Can the antispasmodic be changed ? [facility] 01-16-2025 Telephone encounter Note Name of Caller: Annita Contact Reason for Appointment: Annita stated Stephane was released from the hospital today to return home. Please call to schedule recommended biopsy or to advise. Office Name: Urology [facility] 01-16-2025 Miscellaneous Notes Name of Caller: Annita Contact Reason for Appointment: Annita stated Stephane was released from the hospital today to return home. Please call to schedule recommended biopsy or to advise. Office Name: Urology Patient spouse called office to advise patient is currently admitted [facility]. Thursday he was unable to urinate. He went to the ED. They released him with a catheter. Thursday he went back to ED due to catheter being clogged with blood clots. Dr. Nava did a procedure to help stop the bleeding from the prostate. Patient remains on continuous bladder irrigation. Patient will possibly released to go home today or transferred to [facility]. Patient spouse will call office later today to advise. Patient would like to move forward with Biopsy as soon as possible. [facility] medical records should be faxed over from their office as well for Dr. Maradiaga. Pt agrees to OV on 02/10/[address] Maradiaga in [place] The patient's prostate is markedly enlarged. There are several areas of irregularity within the prostate. I would like to see the patient in the office so that I can review these images with him and make some plans moving forward documented in this encounter [facility] 01-16-2025 Discharge summary [facility] enter 01-16-2025 Telephone encount er Note Patient spouse called office to advise patient is currently admitted [facility]. Thursday he was unable to urinate. He went to the ED. They released him with a catheter. Thursday he went back to ED due to catheter being clogged with blood clots. Dr. Nava did a procedure to help stop the bleeding from the prostate. Patient remains on continuous bladder irrigation. Patient will possibly released to go home today or transferred to [facility]. Patient spouse will call office later today to advise. Patient would like to move forward with Biopsy as soon as possible. [facility] medical records should be faxed over from their office as well for Dr. Maradiaga. [facility] 01-15-2025 Progress note Note Date/Time January 15, 2025 3:58pm [facility] [address] [place] [address] Hospitalist Progress Note Signed Patient: Stephane Toribio MR#: [id number] : 1960 Acct:[id number] Age/Sex: 64 / M Adm Date: 5 Loc: 4N Room: [address] [place] [address] Type: ADM INOo Attending Dr: Augusto Duque MD Copies to: ~ Date of Service: 01/15/2025 Subjective Subjective Narrative: Patient is a 64-year-old male with past medical history significant for BPH who presents with gross hematuria. Patient reports earlier today of having difficulties urinating so [facility] where he was determined have urinary tension and Mendoza catheter was placed. Patient reports later of having gross blood with clotting so decided come to [facility] ER for further evaluation and management. Patient currently being worked up with urologist in [place] due to enlarged prostate with nodules. 01/15 [...] Lactated Ringers IV 01/14/26 17:59 75 mls/hr .[id number] TRANG Infusion Lisinopril 20 mg 01/14/25 21:00 [...] medications Documented By: Augusto Duque MD 01/15/25 1537 Signed By: <Electronically signed by Augusto Duque MD> 01/15/25 0129 [facility] Work Phone: 1(314) 840-660610-05-2025 [place] [address] Hospitalist Progress Note Signed Patient: Stephane Toribio MR#: [id number] : 1960 Acct:[id number] Age/Sex: 64 / M Adm Date: 5 Loc: 4N Room: 1Y0136-1 Type: ADM INOo Attending Dr: Augusto Duque MD Copies to: ~ Date of Service: 01/15/2025 Subjective Subjective Narrative: Patient is a 64-year-old male with past medical history significant for BPH who presents with grosshematuria. Patient reports earlier today of having difficulties urinating so decided go to [facility] ER for further evaluation where he was determined have urinary tension and Mendoza catheter was placed. Patient reports later of having gross blood with clotting so decided come to [facility] ER for further evaluation and management. Patient currently being worked up with urologist in [place] due to enlarged prostate with nodules. 01/15 [...] Lactated Ringers IV 01/14/26 17:59 75 mls/hr .[id number] TRANG Infusion Lisinopril 20 mg 01/14/25 21:00 [...] medications Documented By: Augusto Duque MD 01/15/25 1531 Signed By: 01/15/25 1558 [facility]10-04-2025 History and physical note Author Augusto Duque [facility] Note Date/Time January 14, 2025 6: 15pm [facility] [address] [place] [address] Hospitalist H&P Signed Patient: Stephane Toribio MR#: [id number] : 1960 Acct:[id number] Age/Sex: 64 / M Adm Date: 5 Loc: ER Room: Type: [facility] ER Attending Dr: Copies to: NON STAFF MD Roverto Raphael, DO~ HPI DATE OF EXAMINATION: 01/14/25 CHIEF COMPLAINT: Gross hematuria HISTORY OF PRESENT ILLNESS: Patient is a 64-year-old male with past medical history significant for BPH who presents with gross hematuria. Patient reports earlier today of having difficulties urinating so decided go to [facility] ER for further evaluation where he was determined have urinary tension and Mendoza catheter was placed. Patient reports later of having gross blood with clotting so decided come to [facility] for further evaluation and management. Patient currently being worked up with urologist in [place] due to enlarged prostate with nodules. In [...] the bedside and will be admitted to [facility] telemetry for further evaluation management. Review of [...] % (Auto) 22.8 % (.) 01/14/25 15:50 [place] % (Auto) 12.4 % (.) 01/14/25 15:50 Eos % (Auto) 0.6 % (.) 01/14/25 15:50 Baso % (Auto) 0.5 % (.) 01/14/25 15:50 Nucleat RBC Rel Count 0.3 /100 WBC (0-0.5) 01/14/25 15:50 Neut # (Auto) 3.9 x10E3/uL (1.8-7.7) 01/14/25 15:50 Lymph # (Auto) 1.4 x10E3/uL (1.00-4.8) 01/14/25 15:50 [place] # (Auto) 0.8 x10E3/uL (0.0-0.8) 01/14/25 15:50 [...] pH 6.0 (5.0-9.0) 01/14/25 11:21 Ur Specific [place] 1.006 (1.001-1.030) 01/14/25 11:21 Urine Protein 30 [...] 2 Documented By: Augusto Duque MD 01/14/25 0940 Signed By: <Electronically signed by Augusto Duque MD> 01/14/25 2424 [facility] Work Phone: 1([phone]) 590-311610-04-2025 Evaluation note* Diagnosis Onset Date Resolution Status Admit Date Abnormal urologic system diagnostic imaging acute January 14, 2025 5:47pm Acute urinary retention acute O ctober 2024 5:47pm BPH loc w urin obs/LUTS acute O ctober 2024 5:47pm Gross hematuria acute January 142024 5:47pm [facility] Work Phone: 1(772) 448-962710-04-2025 Consult note Author Hitesh Nava [facility] Note Date/Time January 14, 2025 5: 03pm [facility] [address] [place], [place] [id number] Urology Consult Note Signed Patient: Stephane Toribio MR#: [id number] : 1960 Acct:[id number] Age/Sex: 64 / M Adm Date: 5 Loc: ER Room: Type: [facility] ER Attending Dr: Copies to: NON STAFF MD Roverto Robles, DO~ History of Present Illness Consult Details Consult Date: 01/14/2025 HPI: This is an emergency room evaluation on Stephane who is a 64-year-old male visiting from the [facility]. [facility] with [facility]. Apparently he had just under 700 cc urinary retention. He subsequently began tobleed. The catheter was clogging up. He presents to [facility] ER where a three-way Mendoza catheter [...] patient and his have this information on [employer]. This demonstrates a 197 cc prostate with [...] P documented by Dr. Wood earlier today [facility] Social History Smoking Status: Never smoker Substance [...] % (Auto) 63.7, Lymph % (Auto) 22.8, [place] % (Auto) 12.4, Eos % (Auto) 0.6, Baso % (Auto) 0.5, Nucleat RBC Rel Count 0.3, Neut # (Auto) 3.9, Lymph # (Auto) 1.4, [place] # (Auto) 0.8, Eos # (Auto) 0.0, [...] Cloudy A, Urine pH 6.0, Ur Specific [place] 1.006, Urine Protein 30 H, Urine Glucose [...] and his . Reviewed MRI report from [facility]. Scan which was just completed The patient [...] under 700 cc) His urologist in the [place] area will subsequently have to be making [...] need for possible surgical intervention here at [facility]. Will keep him n.p.o. after midnight [...] position. Documented By: Hitesh Nava MD 01/14/25 1640 Signed By: <Electronically signed by MD Hitesh Nava> 01/14/25 170 [facility] Work Phone: 1(605) 920-520510-04-2025 History and physical [place] [id number] Hospitalist H&P Signed Patient: Stephane Toribio MR#: [id number] : 1960 Acct:[id number] Age/Sex: 64 / M Adm Date: 5 Loc: ER Room: Type: [facility] ER Attending Dr: Copies to: NON STAFF MD Roverto Raphael, DO~ HPI DATE OF EXAMINATION: 01/14/25 CHIEF COMPLAINT: Gross hematuria HISTORY OF PRESENT ILLNESS: Patient is a 64-year-old male with past medical history significant for BPH who presents with grosshematuria. Patient reports earlier today of having difficulties urinating so [facility] where he was determined have urinary tension and Mendoza catheter was placed. Patient reports later of having gross blood with clotting so decided come to [facility] ER for further evaluation and management. Patient currently being worked up with urologist in [place] due to enlarged prostate with nodules. In [...] the bedside and will be admitted to [facility] for further evaluation management. Review of Systems Review of Systems All other systems reviewed & are negative unless noted below or in [facility] Social History Smoking Status: Never smoker Substance [...] % (Auto) 22.8 % (.) 01/14/25 15:50 [place] % (Auto) 12.4 % (.) 01/14/25 15:50 Eos % (Auto) 0.6 % (.) 01/14/25 15:50 Baso % (Auto) 0.5 % (.) 01/14/25 15:50 Nucleat RBC Rel Count 0.3 /100 WBC (0-0.5) 01/14/25 15:50 Neut # (Auto) 3.9 x10E3/uL (1.8-7.7) 01/14/25 15:50 Lymph # (Auto) 1.4 x10E3/uL (1.00-4.8) 01/14/25 15:50 [place] # (Auto) 0.8 x10E3/uL (0.0-0.8) 01/14/25 15:50 [...] pH 6.0 (5.0-9.0) 01/14/25 11:21 Ur Specific [place] 1.006 (1.001-1.030) 01/14/25 11:21 Urine Protein 30 [...] MD 01/14/25 1739 Signed By: 01/14/25 1815 [facility]10-04-20[place] [address] Urology Consult Note Signed Patient: Stephane Toribio MR#: [id number] : 1960 Acct:[id number] Age/Sex: 64 / M Adm Date: 5 Loc: ER Room: Type: [facility] ER Attending Dr: Copies to: NON STAFF MD Roverto Robles, DO~ History of Present Illness Consult Details Consult Date: 01/14/2025 HPI: This is an emergency room evaluation on Stephane who is a 64-year-old male visiting from the [place] area. [facility] with difficulty. Apparently he had just under 700 cc urinary retention. He subsequently began tobleed. The catheter was clogging up. He presents to [facility] ER where a three-way Mendoza catheter [...] [facility] This demonstrates a 197 cc prostate [...] P documented by Dr. Wood earlier today [facility] Social History Smoking Status: Never smoker Substance [...] Neut % (Auto) 63.7, Lymph % (Auto) 22.8,[place] % (Auto) 12.4, Eos % (Auto) 0.6, Baso % (Auto) 0.5, Nucleat RBC Rel Count 0.3, Neut # (Auto) 3.9, Lymph # (Auto) 1.4, [place] # (Auto) 0.8, Eos # (Auto) 0.0, [...] Cloudy A, Urine pH 6.0, Ur Specific [place] 1.006, Urine Protein 30 H, Urine Glucose [...] and his . Reviewed MRI report from [facility]. Scan which was just completed The patient [...] under 700 cc) His urologist in the [place] area will subsequently have to be making [...] need for possible surgical intervention here at [facility]. Will keep him n.p.o. after midnight [...] MD 01/14/25 1642 Signed By: 01/14/25 1703 [facility]10-04-2025 Radiology Diagnostic study note [facility] Main [place] [address] [place] [address] CT Scan Report Signed Patient: Stephane Toribio MR#: [id number] : 1960 Acct:[id number] Age/Sex: 64 / M ADM Date: 5 Loc: ER Room: Type: [facility] ER Attending Dr: Copies to: Roverto [...] Jr., D.OKrzysztof 01/14/2025 5:00 PM Dictation Location: [place] [address] Transcribed By: [facility] 01/14/25 170 Dictated By: Reji Yao Jr, DO 01/14/25 1653 Signed By: 01/14/25 1700 [facility]10-04-2025 NoteEducation Materials Urology Trouble Peeing (Acute [...] provider. Document Revised: 11/26/2023 Document Reviewed: 11/26/2023 Vascular [employer] Patient Education ? 2024 [employer] Indwelling Urinary Catheter Insertion, Care After [...] ? If the cath (more content not included)...[facility]qc[facility] Telephone encounter Note* Telephone Encounter - Verena Urbina - 01/13/2025 9:02 AM EDT Pt agrees to OV on 02/10/[address] Maradiaga in [place] [facility]Bvsnbm88-61-7966 Miscellaneous Notes* Telephone Encounter - Veerna Urbina - 01/13/2025 9:02 AM EDT Pt agrees to OV on 02/10/[address] Maradiaga in [place] * Telephone Encounter - Reji Maradiaga MD - 01/12/2025 4:59 PM EDT The patient's prostate is markedly enlarged. There are several areas of irregularity within the prostate. I would like to see the patient in the office so that I can review these images with him and make some plans moving forward documented in this [facility]10-02-2025 Telephone encounter Note* Telephone Encounter - Reji Maradiaga MD - 01/12/2025 4:59 PM EDT The patient's prostate is markedly enlarged. There are several areas of irregularity within the prostate. I would like to see the patient in the office so that I can review these images with him and make some plans moving forward [facility]Wmzpti15-66-1253 Telephone encounter Note* Telephone Encounter - Verena Urbina - 01/06/2025 9:43 AM EDT Pt has been added to MRI list. [facility] HospitalNqoeey59-32-0919 Miscellaneous Notes* Telephone Encounter - Verena Urbina [...] Patient called in advising returning call to [place]. Patient made aware of MRI date, time, location. Patient again stated that starting 01/11/25 will have Medicare A and B. Patient has not yet received card. * Telephone Encounter - Reji Maradiaga MD - 01/05/2025 7:05 AM EDT MRI ordered * Telephone Encounter - Nidhi Cary RN - 01/05/2025 7:00 AM EDT Pt is agreeable to prostate MRI see Cloudy.fr messages * Telephone Encounter - Chyna Patiño RN - 01/04/2025 8:13 AM EDT LM to return call or see [employer] for test result. * Telephone Encounter - Reji Maradiaga MD - 01/03/2025 10:49 PM EDT PSA 9.530 - lower than April, but still higher than 2023 I feel that prostate MRI is next step. If he agrees, then I will place order documented in this encounterSWooster Community HospitalHdtspo13-53-8209 Telephone encounter Note* Telephone Encounter - Lisa Mireya Khan - 01/06/2025 8:59 AM EDT Pt is scheduled for 01/10 at 1:15 [facility]Qpjtqw47-53-3562 Progress note Author Phuong Ballard [facility] Note Date/Time January 05, 2025 4:08pm [facility] [address] [place] [address] Progress Note - Wound Care 01/05/25 0935 MR#: [id number] Acct: [id number] Name: STEPHANE TORIBIO Rep #:[id number] : [...] anaerobic bacteria isolated. Charges/Coding Procedures Integumentary 111xxx-113xx: 78500 Luisa subq tissue 20 sq cm/< Physical [...] Date Recorded By Document 12/22/24 13:20 KW [id number] 12/22/24 13:26 KW Document 12/29/24 13:31 KW [id number] 12/29/24 13:33 KW Document 01/05/25 09:08 ML [id number] 01/05/25 09:13 ML 12/22/24 12/29/24 01/05/25 13:20 13:31 09:08 - Today's Visit Information Type of service Follow-up Visit Follow-up Visit Follow-up Visit (Physician/OPTICAL INSTRUMENT ASSEMBLER (Physician/OPTICAL INSTRUMENT ASSEMBLER (Physician/OPTICAL INSTRUMENT ASSEMBLER ) ) ) Arrival Mode Ambulatory Ambulatory [...] Date Recorded By Document 12/22/24 13:20 KW [id number] 12/22/24 13:26 KW Edit Result 12/22/24 13:20 KW (1) [id number] 12/22/24 13:27 KW Document 12/29/24 13:31 KW [id number] 12/29/24 13:33 KW Document 01/05/25 09:08 ML [id number] 01/05/25 09:13 ML (1) Right Calf (cm) [...] Date Recorded By Document 12/22/24 13:35 GM [id number] 12/22/24 13:38 Document 12/29/24 13:45 [id number] 12/29/24 13:53 Document 01/05/25 09:19 JF [id number] 01/05/25 09:21 JF 12/22/24 12/29/24 01/05/25 13:35 [...] Date Recorded By Document 12/22/24 13:51 KW [id number] 12/22/24 13:51 KW Document 12/29/24 14:05 [facility] [id number] 12/29/24 14:06 [facility] Document 01/05/25 09:21 JF [id number] 01/05/25 09:29 JF 12/22/24 12/29/24 01/05/25 13:51 [...] wound care management as previously discussed by welder fitter gas. His questions were answered and he was advised to let us know if he had any further questions or concerns. Follow-up in a week with welder fitter gas or sooner if needed. This note was generated with Insight Plus dictation software. It may contain incorrectwords, spelling, and punctuation that were not noted in checking the note beforesigning. 01/05/25 1608 <Electronically signed by Phuong Ballard MD> Cosigner Signature (if applicable): CC: ~ Signed [facility] Work Phone: 1(327) 587-642609-25-2025 Progress note [facility] [address] [place] [address] Progress Note - Wound Care 01/05/25 0935 MR#: [id number] Acct: [id number] Name: STEPHANE TORIBIO Rep #:[id number] : 1960 64 From: Phuong cedra MD PCP: Dr. Abimael Elizabeth, DO Status:RE [...] anaerobic bacteria isolated. Charges/Coding Procedures Integumentary 111xxx-113xx: 01369 Luisa subq tissue 20 sq cm/< Physical [...] Date Recorded By Document 12/22/24 13:20 KW [id number] 12/22/24 13:26 KW Document 12/29/24 13:31 KW [id number] 12/29/24 13:33 KW Document 01/05/25 09:08 ML [id number] 01/05/25 09:13 ML 12/22/24 12/29/24 01/05/25 13:20 13:31 09:08 - Today's Visit Information Type of service Follow-up Visit Follow-up Visit Follow-up Visit (Physician/OPTICAL INSTRUMENT ASSEMBLER (Physician/OPTICAL INSTRUMENT ASSEMBLER (Physician/OPTICAL INSTRUMENT ASSEMBLER ) ) ) Arrival Mode Ambulatory Ambulatory [...] Date Recorded By Document 12/22/24 13:20 KW [id number] 12/22/24 13:26 KW Edit Result 12/22/24 13:20 KW (1) [id number] 12/22/24 13:27 KW Document 12/29/24 13:31 KW [id number] 12/29/24 13:33 KW Document 01/05/25 09:08 ML [id number] 01/05/25 09:13 ML (1) Right Calf (cm) [...] Skin Appearance) Assessed Assessed, Assessed Erythema -Temperature (Az-wound Skin No Abnormality No Abnormality No Abnormality [...] Recorded Date Recorded By Document 12/22/24 13:35 [id number] 12/22/24 13:38 Document 12/29/24 13:45 [id number] 12/29/24 13:53 Document 01/05/25 09:19 [id number] 01/05/25 09:21 JF 12/22/24 12/29/24 01/05/25 13:35 [...] Date Recorded By Document 12/22/24 13:51 KW [id number] 12/22/24 13:51 Document 12/29/24 14:05 [facility] [id number] 12/29/24 14:06 [facility] Document 01/05/25 09:21 JF [id number] 01/05/25 09:29 JF 12/22/24 12/29/24 01/05/25 13:51 [...] wound care management as previously discussed by welder fitter gas. His questions were answered and he was advisedto let us know if he had any further questions or concerns. Follow-up in a week with welder fitter gas or sooner if needed. This note was generated with [employer] software. It may contain incorrectwords, spelling, and punctuation that were not noted in checking the note beforesigning. 01/05/25 9421 Cosigner Signature (if applicable): CC: ~ Signed [facility]09-25-2025 Telephone encounter Note* Telephone Encounter - Lisa Khan - 01/05/2025 12:19 PM EDT Error [facility] HospitalVhaazd90-29-2080 Miscellaneous Notes* Telephone Encounter - Lisa Khan - 01/05/2025 12:19 PM EDT Error documented in this encounterSWooster Community HospitalJotrfg25-40-5692 Telephone encounter Note* Telephone Encounter - Lisa Khan - 01/05/2025 11:58 AM EDT I have started the auth for the MRI to see if we can move WENDY appt before jan. [facility] HospitalLfljev46-32-0917 Miscellaneous Notes* Telephone Encounter - Lisa Khan - 01/05/2025 11:58 AM EDT I have started the auth for the MRI to see if we can move WENDY appt before jan. 1 * Telephone Encounter - Alvarez Wharton - 01/05/2025 10:18 AM EDT Patient called in advising returning call to [place]. Patient made aware of MRI date, time, location. Patient again stated that starting 01/11/25 will have Medicare A and B. Patient has not yet received card. * Telephone Encounter - Reji Maradiaga MD - 01/05/2025 7:05 AM EDT MRI ordered * Telephone Encounter - Nidhi [place] RN - 01/05/2025 7:00 AM EDT Pt is agreeable to prostate MRI see Cloudy.fr messages * Telephone Encounter - Chyna Patiño RN - 01/04/2025 8:13 AM EDT LM to return call or see Aff[employer] for test result. * Telephone Encounter - Reji Maradiaga MD - 01/03/2025 10:49 PM EDT PSA 9.530 - lower than April, but still higher than 2023 I feel that prostate MRI is next step. If he agrees, then I will place order documented in this encounterSWooster Community HospitalNfpqow78-43-9048 Telephone encounter Note* Telephone Encounter - Alvarez Wharton - 01/05/2025 10:18 AM EDT Patient called in advising returning call to [place]. Patient made aware of MRI date, time, location. Patient again stated that starting 01/11/25 will have Medicare A and B. Patient has not yet received card. [facility] HospitalFiqqeb86-59-3613 Telephone encounter Note* Telephone Encounter - Lisa [...] Encounters: 01/01/24 (!) 330 lb (150 kg) [facility] HospitalXmnzzq44-12-6963 Miscellaneous Notes* Telephone Encounter - Lisa Khan [...] 330 lb (150 kg) documented in this encounterSWooster Community HospitalKenwpe12-29-9916 Telephone encounter Note* Telephone Encounter - Reji Maradiaga MD - 01/05/2025 7:05 AM EDT MRI ordered [facility] HospitalNwfsct97-55-8616 Telephone encounter Note* Telephone Encounter - Nidhi [place] RN - 01/05/2025 7:00 AM EDT Pt is agreeable to prostate MRI see Cloudy.fr messages [facility] HospitalGfibzl11-82-3485 Telephone encounter Note* Telephone Encounter - Chyna Patiño RN - 01/04/2025 8:13 AM EDT LM to return call or see mychart for test result. [facility] Izochm75-31-0171 Telephone encounter Note* Telephone Encounter - Reji Maradiaga MD - 01/03/2025 10:49 PM EDT PSA 9.530 - lower than April, but still higher than 2023 I feel that prostate MRI is next step. If he agrees, then I will place order [facility] Rojpnc43-72-0361 History of Present illness Narrative* Reji Maradiaga [...] Reji Maradiaga MD 01/02/25 4:07 PM Gadiel PA ( of [facility]). Brother: Dr. Froylan Toribio. Nephew: Dr. Vaughn (ortho) 01/02/2025: PVR 48 ml. Worse LUTS. Add finasteride. PSA ordered 01/01/2024: PVR 13 ml. Nocturia x 1-2, variable stream. Refilled tamsulosin BID. PSA is decreasing. 06/15/2023: OV RAMON: PVR 124 ml. Increase tamsulosin to BID 12/19/2022: TRUS/Bx ([place], 177 ml): benign PSA 04/18/2024: PSA: 10.300 12/18/2023: PSA: 5.480 10/09/2023: PSA: 8.670 (Pearl) 04/20/2023: PSA: 7.200 w/ 31% free PSA (Pearl) 11/28/2022: PSA: 7.440 10/31/2022: PSA: 6.670 05/02/2022: PSA: 4.588 10/24/2021: PSA: 4.256 09/20/2019: PSA: 3.523 [1] Past Medical History: Diagnosis Date Benign prostatic hyperplasia 3 or 4 years ago Elevated PSA Late 2020 Erectile dysfunction Summer 2020 H/O exercise stress test Hypertension MACY on CPAP Osteomyelitis (HCC) RIGHT RING FINGER AND SCHEDULED FOR THE SURGERY ON 03/05/20 AT SURGERY [place] [2] Past Surgical History: Procedure Laterality Date CHOLECYSTECTOMY [facility] COLONOSCOPY COLONOSCOPY 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 arthrotomy DIP joint long fingerwith excision of osteophytes. Dr Jackson OTHER SURGICAL HISTORY EXCISION OF LIPOMA FROM THE BACK AT SURGERY [place] LONG TIME AGO SCAPHOID FRACTURE SURGERY Right [facility] WISDOM TOOTH EXTRACTION [3] Family History Problem Relation Name Age of Onset Arthritis Mother Rachel Toribio Arthritis Father Franki Toribio Hearing loss Father Franki Toribio documented in this encounterSumma Jrwzoz61-11-7006 Progress note Author Yola Sepulveda [facility] Note Date/Time December 30, 2024 8:54am [facility] [address] [place] [address] Progress Note - Wound Care 12/29/24 1626 MR#: [id number] Acct: [id number] Name: STEPHANE TORIBIO Rep #:[id number] : [...] anaerobic bacteria isolated. Charges/Coding Procedures Integumentary 111xxx-113xx: 89752 Luisa subq tissue 20 sq cm/< Physical [...] Date Recorded By Document 12/22/24 13:20 KW [id number] 12/22/24 13:26 KW Document 12/29/24 13:31 KW [id number] 12/29/24 13:33 KW 12/22/24 12/29/24 13:20 13:31 - Today's Visit Information Type of service Follow-up Visit Follow-up Visit (Physician/OPTICAL INSTRUMENT ASSEMBLER (Physician/OPTICAL INSTRUMENT ASSEMBLER ) ) Arrival Mode Ambulatory Ambulatory Patient [...] Date Recorded By Document 12/22/24 13:20 KW [id number] 12/22/24 13:26 KW Edit Result 12/22/24 13:20 KW (1) [id number] 12/22/24 13:27 KW Document 12/29/24 13:31 KW [id number] 12/29/24 13:33 KW (1) Right Calf (cm) [...] Recorded Date Recorded By Document 12/22/24 13:35 [id number] 12/22/24 13:38 Document 12/29/24 13:45 [id number] 12/29/24 13:53 12/22/24 12/29/24 13:35 13:45 Wound [...] Recorded Date Recorded By Document 12/22/24 13:51 [id number] 12/22/24 13:51 Document 12/29/24 14:05 [facility] [id number] 12/29/24 14:06 [facility] 12/22/24 12/29/24 13:51 14:05 Wound Care Center [...] to see me in 2 weeks. 12/30/24 0820 <Electronically signed by Yola STEVENSON> Cosigner Signature (if applicable): CC: ~ Signed [facility] Work Phone: 1(581) 303-550109-19-2025 Progress note [facility] [address] [place] [address] Progress Note - Wound Care 12/29/24 1626 MR#: [id number] Acct: [id number] Name: STEPHANE TORIBIO Rep #:[id number] : [...] anaerobic bacteria isolated. Charges/Coding Procedures Integumentary 111xxx-113xx: 88081 Luisa subq tissue 20 sq cm/< Physical [...] Date Recorded By Document 12/22/24 13:20 KW [id number] 12/22/24 13:26 KW Document 12/29/24 13:31 KW [id number] 12/29/24 13:33 KW 12/22/24 12/29/24 13:20 13:31 WC - Today's Visit Information Type of service Follow-up Visit Follow-up Visit (Physician/OPTICAL INSTRUMENT ASSEMBLER (Physician/OPTICAL INSTRUMENT ASSEMBLER ) ) Arrival Mode Ambulatory Ambulatory Patient [...] Date Recorded By Document 12/22/24 13:20 KW [id number] 12/22/24 13:26 KW Edit Result 12/22/24 13:20 KW (1) [id number] 12/22/24 13:27 KW Document 12/29/24 13:31 KW [id number] 12/29/24 13:33 KW (1) Right Calf (cm) [...] Date Recorded By Document 12/22/24 13:35 GM [id number] 12/22/24 13:38 GM Document 12/29/24 13:45 GM [id number] 12/29/24 13:53 12/22/24 12/29/24 13:35 13:45 Wound [...] Recorded Date Recorded By Document 12/22/24 13:51 [id number] 12/22/24 13:51 Document 12/29/24 14:05 [facility] UP1561 12/29/24 14:06 [facility] 12/22/24 12/29/24 13:51 14:05 Wound Care Center [...] Cosigner Signature (if applicable): CC: ~ Signed [facility]09-15-2025 Progress note Author Yola Sepulveda [facility] Note Date/Time December 26, 2024 10:19am [facility] [address] [place] [address] Progress Note - Wound Care 12/22/24 1603 MR#: [id number] Acct: [id number] Name: STEPHANE TORIBIO Rep #:[id number] : [...] Method Room Air Charges/Coding Procedures Integumentary 111xxx-113xx: 34805 Luisa subq tissue 20 sq cm/< Physical [...] Recorded Date Recorded By Document 12/22/24 13:20 [id number] 12/22/24 13:26 12/22/24 13:20 WC - Today's Visit Information Type of service Follow-up Visit (Physician/OPTICAL INSTRUMENT ASSEMBLER ) Arrival Mode Ambulatory Patient Identification Verified [...] Date Recorded By Document 12/22/24 13:20 KW [id number] 12/22/24 13:26 KW Edit Result 12/22/24 13:20 KW (1) [id number] 12/22/24 13:27 KW (1) Right Calf (cm) [...] Date Recorded By Document 12/22/24 13:35 GM [id number] 12/22/24 13:38 GM 12/22/24 13:35 Wound Center [...] Date Recorded By Document 12/22/24 13:51 DARY [id number] 12/22/24 13:51 DARY 12/22/24 13:51 Wound Care [...] Cosigner Signature (if applicable): CC: ~ Signed [facility] Work Phone: 1(369) 134-492809-15-2025 Progress note [facility] [address] [place] [address] Progress Note - Wound Care 12/22/24 1603 MR#: [id number] Acct: [id number] Name: STEPHANE TORIBIO Rep #:[id number] : [...] Method Room Air Charges/Coding Procedures Integumentary 111xxx-113xx: 27611 Luisa subq tissue 20 sq cm/< Physical [...] Recorded Date Recorded By Document 12/22/24 13:20 DARY [id number] 12/22/24 13:26 KW 12/22/24 13:20 - Today's Visit Information Type of service Follow-up Visit (Physician/OPTICAL INSTRUMENT ASSEMBLER ) Arrival Mode Ambulatory Patient Identification Verified [...] Date Recorded By Document 12/22/24 13:20 KW [id number] 12/22/24 13:26 KW Edit Result 12/22/24 13:20 KW (1) [id number] 12/22/24 13:27 KW (1) Right Calf (cm) [...] Recorded Date Recorded By Document 12/22/24 13:35 [id number] 12/22/24 13:38 12/22/24 13:35 Wound Center Nurse [...] Recorded Date Recorded By Document 12/22/24 13:51 [id number] 12/22/24 13:51 12/22/24 13:51 Wound Care Center [...] Cosigner Signature (if applicable): CC: ~ Signed [facility]08-29-2025 Progress note Author Yola Sepulveda [facility] Note Date/Time December 08, 2024 11 :13pm [facility] [address] [place] [address] Progress Note - Wound Care 12/08/24 1340 MR#: [id number] Acct: [id number] Name: STEPHANE TORIBIO Rep #:[id number] : [...] Integumentary CPT Codes: Other Procedure See Report (91435) Physical Exam Const alert, oriented x3 and [...] Date Recorded By Document 11/23/24 10:34 DL [id number] 11/23/24 10:40 DL Document 12/01/24 13:12 KW [id number] 12/01/24 13:19 KW Document 12/08/24 12:58 KW [id number] 12/08/24 12:59 KW 11/23/24 12/01/24 12/08/24 10:34 13:12 12:58 WC - Today's Visit Information Type of service Follow-up Visit Follow-up Visit Follow-up Visit (Physician/OPTICAL INSTRUMENT ASSEMBLER (Physician/OPTICAL INSTRUMENT ASSEMBLER (Physician/OPTICAL INSTRUMENT ASSEMBLER ) ) ) Arrival Mode Ambulatory Ambulatory [...] Date Recorded By Document 11/23/24 10:34 DL [id number] 11/23/24 10:40 DL Document 12/01/24 13:12 KW [id number] 12/01/24 13:19 KW Document 12/08/24 12:58 KW [id number] 12/08/24 12:59 KW 11/23/24 12/01/24 12/08/24 10:34 [...] (67-100%) Large (67-100%) -Granulation Quality Red Red [place],Red -Necrosis Amt Small (1-33%) Small (1-33%) -Necrotic [...] Recorded Date Recorded By Document 11/23/24 10:49 [facility] [id number] 11/23/24 10:53 [facility] Document 12/01/24 13:26 [id number] 12/01/24 13:35 Document 12/08/24 13:24 [id number] 12/08/24 13:27 11/23/24 12/01/24 12/08/24 10:49 13:26 [...] Date Recorded By Document 11/23/24 11:00 DL [id number] 11/23/24 11:01 DL Document 12/08/24 13:38 ML [id number] 12/08/24 13:39 ML 11/23/24 12/08/24 11:00 13:38 [...] in 1 week, sooner as needed. 12/08/24 1895 <Electronically signed by Yola STEVENSON> Cosigner Signature (if applicable): CC: ~ Signed [facility] Work Phone: 1(618) 313-102608-28-2025 Progress note [facility] [address] [place] [address] Progress Note - Wound Care 12/08/24 1340 MR#: [id number] Acct: [id number] Name: STEPHANE TORIBIO Rep #:[id number] : [...] Integumentary CPT Codes: Other Procedure See Report ([id number]) Physical Exam Const alert, oriented x3 and [...] Date Recorded By Document 11/23/24 10:34 DL [id number] 11/23/24 10:40 DL Document 12/01/24 13:12 KW [id number] 12/01/24 13:19 KW Document 12/08/24 12:58 KW [id number] 12/08/24 12:59 KW 11/23/24 12/01/24 12/08/24 10:34 13:12 12:58 - Today's Visit Information Type of service Follow-up Visit Follow-up Visit Follow-up Visit (Physician/OPTICAL INSTRUMENT ASSEMBLER (Physician/OPTICAL INSTRUMENT ASSEMBLER (Physician/OPTICAL INSTRUMENT ASSEMBLER ) ) ) Arrival Mode Ambulatory Ambulatory [...] Date Recorded By Document 11/23/24 10:34 DL [id number] 11/23/24 10:40 DL Document 12/01/24 13:12 KW [id number] 12/01/24 13:19 KW Document 12/08/24 12:58 KW [id number] 12/08/24 12:59 KW 11/23/24 12/01/24 12/08/24 10:34 [...] (67-100%) Large (67-100%) -Granulation Quality Red Red [place],Red -Necrosis Amt Small (1-33%) Small (1-33%) -Necrotic [...] Recorded Date Recorded By Document 11/23/24 10:49 [facility] [id number] 11/23/24 10:53 [facility] Document 12/01/24 13:26 [id number] 12/01/24 13:35 Document 12/08/24 13:24 [id number] 12/08/24 13:27 11/23/24 12/01/24 12/08/24 10:49 13:26 [...] Date Recorded By Document 11/23/24 11:00 DL [id number] 11/23/24 11:01 DL Document 12/08/24 13:38 ML [id number] 12/08/24 13:39 ML 11/23/24 12/08/24 11:00 13:38 [...] in 1 week, sooner as needed. 12/08/24 6862 Cosigner Signature (if applicable): CC: ~ Signed [facility]08-21-2025 History and physical note Author Yola Sepulveda [facility] Note Date/Time December 01, 2024 2: 23pm [facility] [address] [place] [address] H&P Exam - Wound Care 12/01/24 1408 MR#: [id number] Acct: [id number] Name: STEPHANE TORIBIO Rep #:[id number] : [...] healed in order for him to proceed. [facility] Home Medications ?Medication ?Instructions ?Recorded ?Last Taken [...] BID 11/26/17 Unkno wn History omega-3 1,050 dl-rjs-brj-dpa-fish 1 ea PO DAILY Unknown History oil 1,200 mg capsule ([place]-3 2100) sertraline 25 mg tablet (Zoloft) 25 [...] Date Recorded By Document 11/23/24 10:34 DL [id number] 11/23/24 10:40 DL Document 12/01/24 13:12 KW [id number] 12/01/24 13:19 KW 11/23/24 12/01/24 10:34 13:12 - Today's Visit Information Type of service Follow-up Visit Follow-up Visit (Physician/OPTICAL INSTRUMENT ASSEMBLER (Physician/OPTICAL INSTRUMENT ASSEMBLER ) ) Arrival Mode Ambulatory Ambulatory Transfer [...] Date Recorded By Document 11/23/24 10:34 DL [id number] 11/23/24 10:40 DL Document 12/01/24 13:12 KW [id number] 12/01/24 13:19 11/23/24 12/01/24 10:34 13:12 Wound [...] Recorded Date Recorded By Document 11/23/24 10:49 [facility] [id number] 11/23/24 10:53 [facility] Document 12/01/24 13:26 [id number] 12/01/24 13:35 11/23/24 12/01/24 10:49 13:26 Wound [...] Recorded Date Recorded By Document 11/23/24 11:00 [id number] 11/23/24 11:01 DL 11/23/24 11:00 Wound Care [...] Charges/Coding Visit Charges Office Visits / Consults: 32425 OV L3 New 30min Procedures Integumentary 111xxx-113xx: 06624 Luisa subq tissue 20 sq cm/< Assessment/Plan [...] Cosigner Signature (if applicable): CC: ~ Signed [facility] Work Phone: 1(671) 940-370908-21-2025 History and physical note [facility] [address] [place] [address] H&P Exam - Wound Care 12/01/24 1408 MR#: [id number] Acct: [id number] Name: STEPHANE TORIBIO Rep #:[id number] : [...] BID 11/26/17 Unkno wn History omega-3 1,050 ko-ctg-aka-dpa-fish 1 ea PO DAILY Unknown History oil 1,200 mg capsule ([place]-3 2100) sertraline 25 mg tablet (Zoloft) 25 [...] Date Recorded By Document 11/23/24 10:34 DL [id number] 11/23/24 10:40 DL Document 12/01/24 13:12 KW [id number] 12/01/24 13:19 KW 11/23/24 12/01/24 10:34 13:12 - Today's Visit Information Type of service Follow-up Visit Follow-up Visit (Physician/OPTICAL INSTRUMENT ASSEMBLER (Physician/OPTICAL INSTRUMENT ASSEMBLER ) ) Arrival Mode Ambulatory Ambulatory Transfer [...] Date Recorded By Document 11/23/24 10:34 DL [id number] 11/23/24 10:40 DL Document 12/01/24 13:12 KW [id number] 12/01/24 13:19 KW 11/23/24 12/01/24 10:34 13:12 [...] Recorded Date Recorded By Document 11/23/24 10:49 [facility] [id number] 11/23/24 10:53 [facility] Document 12/01/24 13:26 [id number] 12/01/24 13:35 11/23/24 12/01/24 10:49 13:26 Wound [...] Date Recorded By Document 11/23/24 11:00 DL [id number] 11/23/24 11:01 DL 11/23/24 11:00 Wound Care [...] Charges/Coding Visit Charges Office Visits / Consults: 75877 OV L3 New 30min Procedures Integumentary 111xxx-113xx: 69552 Luisa subq tissue 20 sq cm/< Assessment/Plan [...] Cosigner Signature (if applicable): CC: ~ Signed [facility]08-13-2025 Progress note Author Chacha Dunham [facility] Note Date/Time November 23, 2024 11 :51am [facility] [address] [place] [address] Progress Note - Wound Care 11/23/24 1148 MR#: [id number] Acct: [id number] Name: STEPHANE TORIBIO Rep #:[id number] : 1960 64 From: Chacha Dunham NP DIRECTOR CLINICAL APPLICATIONS-C PCP: Dr. Abimael Elizabeth, DO Status:RE G [...] Date Recorded By Document 11/23/24 10:34 DL [id number] 11/23/24 10:40 DL 11/23/24 10:34 - Today's Visit Information Type of service Follow-up Visit (Physician/OPTICAL INSTRUMENT ASSEMBLER ) Arrival Mode Ambulatory Transfer Assistance None [...] Date Recorded By Document 11/23/24 10:34 DL [id number] 11/23/24 10:40 DL 11/23/24 10:34 Wound Center [...] Date Recorded By Document 11/23/24 10:49 BM [id number] 11/23/24 10:53 BMF 11/23/24 10:49 Wound Center [...] Date Recorded By Document 11/23/24 11:00 DL [id number] 11/23/24 11:01 DL 11/23/24 11:00 Wound Care [...] Cosigner Signature (if applicable): CC: ~ Signed [facility] Work Phone: 1(805) 353-258508-13-2025 Progress note [facility] [address] [place] [address] Progress Note - Wound Care 11/23/24 1148 MR#: [id number] Acct: [id number] Name: STEPHANE TORIBIO Rep #:[id number] : 1960 64 From: Chacha Dunham NP DIRECTOR CLINICAL APPLICATIONS-C PCP: Dr. Abimael Elizabeth, DO Status:RE G [...] Date Recorded By Document 11/23/24 10:34 DL [id number] 11/23/24 10:40 DL 11/23/24 10:34 WC - Today's Visit Information Type of service Follow-up Visit (Physician/OPTICAL INSTRUMENT ASSEMBLER ) Arrival Mode Ambulatory Transfer Assistance None [...] Date Recorded By Document 11/23/24 10:34 DL [id number] 11/23/24 10:40 DL 11/23/24 10:34 Wound Center [...] Recorded Date Recorded By Document 11/23/24 10:49 [facility] [id number] 11/23/24 10:53 [facility] 11/23/24 10:49 Wound Center Nurse 2 #1 [...] Date Recorded By Document 11/23/24 11:00 DL [id number] 11/23/24 11:01 DL 11/23/24 11:00 Wound Care [...] Cosigner Signature (if applicable): CC: ~ Signed [facility]07-30-2025 Progress note Author Chacha Dunham [facility] Note Date/Time November 09, 2024 11:5 2am [facility] [address] [place] [address] Progress Note - Wound Care 11/09/24 1148 MR#: [id number] Acct: [id number] Name: STEPHANE TORIBIO Rep #:[id number] : 1960 64 From: Chacha Dunham NP DIRECTOR CLINICAL APPLICATIONS-C PCP: Dr. Abimael Elizabeth, DO Status:RE G [...] Date Recorded By Document 10/12/24 10:38 DL [id number] 10/12/24 10:46 DL Document 10/26/24 10:27 ML [id number] 10/26/24 10:35 ML Document 11/02/24 10:57 ML [id number] 11/02/24 11:01 ML Document 11/09/24 11:10 ND [id number] 11/09/24 11:15 MT 10/12/24 10/26/24 11/02/24 10:38 10:27 10:57 - Today's Visit Information Type of service Follow-up Visit Follow-up Visit Follow-up Visit (Physician/OPTICAL INSTRUMENT ASSEMBLER (Physician/OPTICAL INSTRUMENT ASSEMBLER (Physician/OPTICAL INSTRUMENT ASSEMBLER ) ) ) Arrival Mode Ambulatory Ambulatory [...] Visit Information Type of service Follow-up Visit (Physician/OPTICAL INSTRUMENT ASSEMBLER ) Arrival Mode Ambulatory Transfer Assistance Accompanied [...] Date Recorded By Document 10/12/24 10:38 DL [id number] 10/12/24 10:46 DL Document 10/26/24 10:27 ML [id number] 10/26/24 10:35 ML Document 11/02/24 10:57 ML [id number] 11/02/24 11:01 ML Document 11/09/24 11:10 MT [id number] 11/09/24 11:15 MT 10/12/24 10/26/24 11/02/24 10:38 [...] Attached -Granulation Amt Large (67-100%) -Granulation Quality [place] -Slough/Fibrin Yes Yes -Necrosis Amt None Present [...] Intact -Granulation Amt Large (67-100%) -Granulation Quality Pale,[place] -Slough/Fibrin -Necrosis Amt Small (1-33%) -Necrotic Tissue [...] Recorded Date Recorded By Document 10/12/24 11:25 [facility] [id number] 10/12/24 11:34 BM Document 10/26/24 10:43 [facility] [id number] 10/26/24 10:50 [facility] Document 11/02/24 11:33 [facility] [id number] 11/02/24 11:35 [facility] Document 11/09/24 11:19 [facility] [id number] 11/09/24 11:25 [facility] 10/12/24 10/26/24 11/02/24 11:25 10:43 11:33 Wound [...] Date Recorded By Document 10/12/24 11:41 GM [id number] 10/12/24 11:42 GM Document 10/26/24 10:54 DL [id number] 10/26/24 10:56 DL Document 11/02/24 11:52 ML [id number] 11/02/24 11:53 ML Document 11/09/24 11:34 MT [id number] 11/09/24 11:37 MT Edit Result 11/09/24 11:34 MT (1) [id number] 11/09/24 11:39 MT (1) #1 R Calf [...] 1152 <Electronically signed by Chacha Dunham NP DIRECTOR CLINICAL APPLICATIONS-C> Cosigner Signature (if applicable): CC: ~ Signed [facility] Work Phone: 1(113) 813-754507-30-2025 Evaluation note* Diagnosis Onset Date Resolution Status [...] fat layer exposed acute January 26 1:15pm [facility] Work Phone: 1(115) 736-361107-30-2025 Progress note [facility] [address] [place] [address] Progress Note - Wound Care 11/09/24 1148 MR#: [id number] Acct: [id number] Name: STEPHANE TORIBIO Rep #:[id number] : 1960 64 From: Chacha Dunham NP DIRECTOR CLINICAL APPLICATIONS-C PCP: Dr. Abimael Elizabeth, DO Status:RE G [...] Date Recorded By Document 10/12/24 10:38 DL [id number] 10/12/24 10:46 DL Document 10/26/24 10:27 ML [id number] 10/26/24 10:35 ML Document 11/02/24 10:57 ML FL7611 11/02/24 11:01 ML Document 11/09/24 11:10 MT [id number] 11/09/24 11:15 ND 10/12/24 10/26/24 11/02/24 10:38 10:27 10:57 - Today's Visit Information Type of service Follow-up Visit Follow-up Visit Follow-up Visit (Physician/OPTICAL INSTRUMENT ASSEMBLER (Physician/OPTICAL INSTRUMENT ASSEMBLER (Physician/OPTICAL INSTRUMENT ASSEMBLER ) ) ) Arrival Mode Ambulatory Ambulatory [...] Visit Information Type of service Follow-up Visit (Physician/OPTICAL INSTRUMENT ASSEMBLER ) Arrival Mode Ambulatory Transfer Assistance Accompanied [...] Date Recorded By Document 10/12/24 10:38 DL [id number] 10/12/24 10:46 DL Document 10/26/24 10:27 ML [id number] 10/26/24 10:35 ML Document 11/02/24 10:57 ML OC9688 11/02/24 11:01 ML Document 11/09/24 11:10 MT ZP8949 11/09/24 11:15 MT 10/12/24 10/26/24 11/02/24 10:38 [...] Attached -Granulation Amt Large (67-100%) -Granulation Quality [place] -Slough/Fibrin Yes Yes -Necrosis Amt None Present [...] Intact -Granulation Amt Large (67-100%) -Granulation Quality Pale,[place] -Slough/Fibrin -Necrosis Amt Small (1-33%) -Necrotic Tissue [...] Date Recorded By Document 10/12/24 11:25 BM [id number] 10/12/24 11:34 BM Document 10/26/24 10:43 BM WA7876 10/26/24 10:50 BM Document 11/02/24 11:33 BM [id number] 11/02/24 11:35 BM Document 11/09/24 11:19 BMF [id number] 11/09/24 11:25 BMF 10/12/24 10/26/24 11/02/24 11:25 [...] Date Recorded By Document 10/12/24 11:41 GM [id number] 10/12/24 11:42 GM Document 10/26/24 10:54 DL [id number] 10/26/24 10:56 DL Document 11/02/24 11:52 ML [id number] 11/02/24 11:53 ML Document 11/09/24 11:34 MT [id number] 11/09/24 11:37 MT Edit Result 11/09/24 11:34 MT (1) [id number] 11/09/24 11:39 MT (1) #1 R Calf [...] Cosigner Signature (if applicable): CC: ~ Signed [facility]07-23-2025 Progress note Author Chacha Dunham [facility] Note Date/Time November 02, 2024 12:1 5pm [facility] [address] [place] [address] Progress Note - Wound Care 11/02/24 1209 MR#: [id number] Acct: [id number] Name: STEPHANE TORIBIO Rep #:[id number] : 1960 64 From: Chacha Dunham NP DIRECTOR CLINICAL APPLICATIONS-C PCP: Dr. Abimael Elizabeth, DO Status:RE G [...] extra with Adaptic over top and an [place] SAP on top continue wearing his Tubigrip's [...] Date Recorded By Document 10/12/24 10:38 DL UR0021 10/12/24 10:46 DL Document 10/26/24 10:27 ML WD2017 10/26/24 10:35 ML Document 11/02/24 10:57 ML [id number] 11/02/24 11:01 ML 10/12/24 10/26/24 11/02/24 10:38 10:27 10:57 - Today's Visit Information Type of service Follow-up Visit Follow-up Visit Follow-up Visit (Physician/OPTICAL INSTRUMENT ASSEMBLER (Physician/OPTICAL INSTRUMENT ASSEMBLER (Physician/OPTICAL INSTRUMENT ASSEMBLER ) ) ) Arrival Mode Ambulatory Ambulatory [...] Date Recorded By Document 10/12/24 10:38 DL [id number] 10/12/24 10:46 DL Document 10/26/24 10:27 ML [id number] 10/26/24 10:35 ML Document 11/02/24 10:57 ML HY5581 11/02/24 11:01 ML 10/12/24 10/26/24 11/02/24 10:38 [...] Attached -Granulation Amt Large (67-100%) -Granulation Quality [place] -Slough/Fibrin Yes Yes -Necrosis Amt None Present [...] Recorded Date Recorded By Document 10/12/24 11:25 [facility] VG2589 10/12/24 11:34 Ubi Document 10/26/24 10:43 Ubi [id number] 10/26/24 10:50 Ubi Document 11/02/24 11:33 Ubi QD1239 11/02/24 11:35 BM 10/12/24 10/26/24 11/02/24 11:25 [...] Date Recorded By Document 10/12/24 11:41 GM [id number] 10/12/24 11:42 GM Document 10/26/24 10:54 DL RV1322 10/26/24 10:56 DL Document 11/02/24 11:52 ML [id number] 11/02/24 11:53 ML 10/12/24 10/26/24 11/02/24 11:41 [...] 1215 <Electronically signed by Chacha Dunham NP DIRECTOR CLINICAL APPLICATIONS-C> Cosigner Signature (if applicable): CC: ~ Signed [facility] Work Phone: [phone]) 620-667607-23-2025 Progress note [facility] [address] [place] [address] Progress Note - Wound Care 11/02/24 1209 MR#: [id number] Acct: [id number] Name: STEPHANE TORIBIO Rep #:[id number] : 1960 64 From: Chacha Dunham NP DIRECTOR CLINICAL APPLICATIONS-C PCP: Dr. Abimael Elizabeth, DO Status:RE G [...] extra with Adaptic over top and an [place] SAP on top continue wearing his Tubigrip's [...] Date Recorded By Document 10/12/24 10:38 DL [id number] 10/12/24 10:46 DL Document 10/26/24 10:27 ML IV3699 10/26/24 10:35 ML Document 11/02/24 10:57 ML DR3788 11/02/24 11:01 ML 10/12/24 10/26/24 11/02/24 10:38 10:27 10:57 - Today's Visit Information Type of service Follow-up Visit Follow-up Visit Follow-up Visit (Physician/OPTICAL INSTRUMENT ASSEMBLER (Physician/OPTICAL INSTRUMENT ASSEMBLER (Physician/OPTICAL INSTRUMENT ASSEMBLER ) ) ) Arrival Mode Ambulatory Ambulatory [...] Date Recorded By Document 10/12/24 10:38 DL [id number] 10/12/24 10:46 DL Document 10/26/24 10:27 ML [id number] 10/26/24 10:35 ML Document 11/02/24 10:57 ML [id number] 11/02/24 11:01 ML 10/12/24 10/26/24 11/02/24 10:38 [...] Attached -Granulation Amt Large (67-100%) -Granulation Quality [place] -Slough/Fibrin Yes Yes -Necrosis Amt None Present [...] Recorded Date Recorded By Document 10/12/24 11:25 [facility] DG4743 10/12/24 11:34 BM Document 10/26/24 10:43 Ubi NR6230 10/26/24 10:50 Ubi Document 11/02/24 11:33 Ubi [id number] 11/02/24 11:35 BMF 10/12/24 10/26/24 11/02/24 11:25 [...] Date Recorded By Document 10/12/24 11:41 GM [id number] 10/12/24 11:42 GM Document 10/26/24 10:54 DL [id number] 10/26/24 10:56 DL Document 11/02/24 11:52 ML [id number] 11/02/24 11:53 ML 10/12/24 10/26/24 11/02/24 11:41 [...] Cosigner Signature (if applicable): CC: ~ Signed [facility]07-16-2025 Progress note Author Chacha Dunham [facility] Note Date/Time October 26, 2024 12:1 6pm [facility] [address] [place] [address] Progress Note - Wound Care 10/26/24 1213 MR#: [id number] Acct: [id number] Name: STEPHANE TORIBIO Rep #:[id number] : 1960 64 From: Chacha Dunham NP DIRECTOR CLINICAL APPLICATIONS-C PCP: Dr. Abimael Elizabeth, DO Status:RE G [...] Start: 10/12/24 10:37 Freq: Status: Active Protocol: [facility] Activity Type Activity Date Activity User E-sign Co-sign Detail Recorded Client Recorded Date Recorded By Document 10/12/24 10:38 DL [id number] 10/12/24 10:46 DL Document 10/26/24 10:27 ML QX1652 10/26/24 10:35 ML 10/12/24 10/26/24 10:38 10:27 - Today's Visit Information Type of service Follow-up Visit Follow-up Visit (Physician/OPTICAL INSTRUMENT ASSEMBLER (Physician/OPTICAL INSTRUMENT ASSEMBLER ) ) Arrival Mode Ambulatory Ambulatory Transfer [...] Date Recorded By Document 10/12/24 10:38 DL [id number] 10/12/24 10:46 DL Document 10/26/24 10:27 ML [id number] 10/26/24 10:35 ML 10/12/24 10/26/24 10:38 10:27 Wound Center Nurse 1 #1 R Calf -Current Size (cm) - Length 0.5 0.5 -Current Size (cm) - Width 0.6 0.5 -Current Size (cm) - Depth 0.1 0.1 -Total Square Cm 0.30 0.25 -Photo Taken Yes -Exudate Amt Small Small -Exudate Type Serosanguineous -Wound Margin Distinct, Outline Attached -Granulation Amt Large (67-100%) -Granulation Quality [place] -Slough/Fibrin Yes -Necrosis Amt None Present (0 [...] Date Recorded By Document 10/12/24 11:25 BMF [id number] 10/12/24 11:34 BM Document 10/26/24 10:43 [facility] HW1934 10/26/24 10:50 F 10/12/24 10/26/24 11:25 10:43 [...] Date Recorded By Document 10/12/24 11:41 GM [id number] 10/12/24 11:42 GM Document 10/26/24 10:54 DL [id number] 10/26/24 10:56 DL 10/12/24 10/26/24 11:41 10:54 [...] Cosigner Signature (if applicable): CC: ~ Signed [facility] Work Phone: [phone] 998-352507-16-2025 Progress note [facility] [address] [place] [address] Progress Note - Wound Care 10/26/24 1213 MR#: [id number] Acct: [id number] Name: STEPHANE TORIBIO Rep #:[id number] : [...] Date Recorded By Document 10/12/24 10:38 DL [id number] 10/12/24 10:46 DL Document 10/26/24 10:27 ML BI0888 10/26/24 10:35 ML 10/12/24 10/26/24 10:38 10:27 - Today's Visit Information Type of service Follow-up Visit Follow-up Visit (Physician/OPTICAL INSTRUMENT ASSEMBLER (Physician/OPTICAL INSTRUMENT ASSEMBLER ) ) Arrival Mode Ambulatory Ambulatory Transfer [...] Date Recorded By Document 10/12/24 10:38 DL [id number] 10/12/24 10:46 DL Document 10/26/24 10:27 ML [id number] 10/26/24 10:35 ML 10/12/24 10/26/24 10:38 10:27 Wound Center Nurse 1 #1 R Calf -Current Size (cm) - Length 0.5 0.5 -Current Size (cm) - Width 0.6 0.5 -Current Size (cm) - Depth 0.1 0.1 -Total Square Cm 0.30 0.25 -Photo Taken Yes -Exudate Amt Small Small -Exudate Type Serosanguineous -Wound Margin Distinct, Outline Attached -Granulation Amt Large (67-100%) -Granulation Quality [place] -Slough/Fibrin Yes -Necrosis Amt None Present (0 [...] Recorded Date Recorded By Document 10/12/24 11:25 [facility] [id number] 10/12/24 11:34 [facility] Document 10/26/24 10:43 [facility] [id number] 10/26/24 10:50 [facility] 10/12/24 10/26/24 11:25 10:43 Wound Center Nurse [...] Recorded Date Recorded By Document 10/12/24 11:41 [id number] 10/12/24 11:42 Document 10/26/24 10:54 DL [id number] 10/26/24 10:56 DL 10/12/24 10/26/24 11:41 10:54 [...] Cosigner Signature (if applicable): CC: ~ Signed [facility]07-02-2025 Progress note Author Chacha Dunham [facility] Note Date/Time October 12, 2024 12:31 pm [facility] [address] [place] [address] Progress Note - Wound Care 10/12/24 1226 MR#: [id number] Acct: [id number] Name: STEPHANE TORIBIO Rep #:[id number] : 1960 63 From: Chacha Dunham NP DIRECTOR CLINICAL APPLICATIONS-C PCP: Dr. Abimael Elizabeth, DO Status:RE G [...] Date Recorded By Document 10/12/24 10:38 DL [id number] 10/12/24 10:46 DL 10/12/24 10:38 - Today's Visit Information Type of service Follow-up Visit (Physician/OPTICAL INSTRUMENT ASSEMBLER ) Arrival Mode Ambulatory Transfer Assistance None [...] Date Recorded By Document 10/12/24 10:38 DL [id number] 10/12/24 10:46 DL 10/12/24 10:38 Wound Center Nurse 1 #1 R Calf -Current Size (cm) - Length 0.5 -Current Size (cm) - Width 0.6 -Current Size (cm) - Depth 0.1 -Total Square Cm 0.30 -Photo Taken Yes -Exudate Amt Small -Exudate Type Serosanguineous -Wound Margin Distinct, Outline Attached -Granulation Amt Large (67-100%) -Granulation Quality [place] -Necrosis Amt None Present (0 %) -Structure [...] Recorded Date Recorded By Document 10/12/24 11:25 [facility] [id number] 10/12/24 11:34 [facility] 10/12/24 11:25 Wound Center Nurse 2 #1 [...] Recorded Date Recorded By Document 10/12/24 11:41 [id number] 10/12/24 11:42 10/12/24 11:41 Wound Care Center [...] 1231 <Electronically signed by Chacha Dunham NP DIRECTOR CLINICAL APPLICATIONS-C> Cosigner Signature (if applicable): CC: ~ Signed [facility] Work Phone: 1(658) 229-672407-02-2025 Progress note [facility] [address] [place] [address] Progress Note - Wound Care 10/12/24 1226 MR#: [id number] Acct: [id number] Name: STEPHANE TORIBIO Rep #:[id number] : 1960 63 From: Chacha Dunham NP DIRECTOR CLINICAL APPLICATIONS-C PCP: Dr. Abimael Elizabeth, DO Status:RE G [...] Date Recorded By Document 10/12/24 10:38 RAFAEL OE3623 10/12/24 10:46 DL 10/12/24 10:38 - Today's Visit Information Type of service Follow-up Visit (Physician/OPTICAL INSTRUMENT ASSEMBLER ) Arrival Mode Ambulatory Transfer Assistance None [...] Recorded Date Recorded By Document 10/12/24 10:38 RFAAEL [id number] 10/12/24 10:46 DL 10/12/24 10:38 Wound Center Nurse 1 #1 R Calf -Current Size (cm) - Length 0.5 -Current Size (cm) - Width 0.6 -Current Size (cm) - Depth 0.1 -Total Square Cm 0.30 -Photo Taken Yes -Exudate Amt Small -Exudate Type Serosanguineous -Wound Margin Distinct, Outline Attached -Granulation Amt Large (67-100%) -Granulation Quality [place] -Necrosis Amt None Present (0 %) -Structure [...] Recorded Date Recorded By Document 10/12/24 11:25 [facility] [id number] 10/12/24 11:34 [facility] 10/12/24 11:25 Wound Center Nurse 2 #1 [...] Recorded Date Recorded By Document 10/12/24 11:41 [id number] 10/12/24 11:42 10/12/24 11:41 Wound Care Center [...] Cosigner Signature (if applicable): CC: ~ Signed [facility]06-25-2025 History and physical note Author Chacha Dunham [facility] Note Date/Time October 05, 2024 12:1 5pm [facility] [address] [place] [address] H&P Exam - Wound Care 10/05/24 1210 MR#: [id number] Acct: [id number] Name: STEPHANE TORIBIO Rep #:[id number] : 1960 63 From: Chacha Dunham NP DIRECTOR CLINICAL APPLICATIONS-C PCP: Dr. Abimael Elizabeth, DO Status:RE G [...] visit we can only look and see. [facility] Home Medications ?Medication ?Instructions ?Recorded ?Last Taken [...] BID 11/26/17 Unkno wn History omega-3 1,050 wm-bfn-tyh-dpa-fish 1 ea PO DAILY Unknown History oil 1,200 mg capsule ([place]-3 2100) sertraline 25 mg tablet (Zoloft) 25 [...] Date Recorded By Document 10/05/24 10:26 RAFAEL [id number] 10/05/24 10:32 DL 10/05/24 10:26 - Today's [...] Date Recorded By Document 10/05/24 10:26 DL [id number] 10/05/24 10:32 DL 10/05/24 10:26 Wound Center [...] Recorded Date Recorded By Document 10/05/24 10:39 [facility] [id number] 10/05/24 10:44 [facility] 10/05/24 10:39 Wound Center Nurse 2 #1 [...] Date Recorded By Document 10/05/24 10:52 DL [id number] 10/05/24 10:53 DL 10/05/24 10:52 Wound Care [...] Xeroform to wound base and cover with [place] SAP foam dressing every day. Follow-up in 1 week (2) Infected wound: CODE(S): T14.8XXA - Other injury of unspecified body region, initial encounter; L08.9 - Local infection of the skin and subcutaneous tissue, unspecified (3) Nonhealing nonsurgical wound: CODE(S): T14.8XXA - Other injury of unspecified body region, initial encounter 10/05/245 <Electronically signed by Chacha Dunham NP DIRECTOR CLINICAL APPLICATIONS-C> Cosigner Signature (if applicable): CC: ~ Signed [facility] Work Phone: 1(490) 607-572606-25-2025 History and physical note [facility] [address] [facility] [place] [address] H&P Exam - Wound Care 10/05/24 1210 MR#: [id number] Acct: [id number] Name: STEPHANE TORIBIO Rep #:[id number] : 1960 63 From: Chacha Dunham NP DIRECTOR CLINICAL APPLICATIONS-C PCP: Dr. Abimael Elizabeth, DO Status:RE G [...] visit we can only look and see. [facility] Home Medications ?Medication ?Instructions ?Recorded ?Last Taken [...] BID 11/26/17 Unkno wn History omega-3 1,050 sa-fil-rtc-dpa-fish 1 ea PO DAILY Unknown History oil 1,200 mg capsule ([place]-3 2100) sertraline 25 mg tablet (Zoloft) 25 [...] Date Recorded By Document 10/05/24 10:26 DL [id number] 10/05/24 10:32 DL 10/05/24 10:26 - Today's [...] Date Recorded By Document 10/05/24 10:26 DL [id number] 10/05/24 10:32 DL 10/05/24 10:26 Wound Center [...] Date Recorded By Document 10/05/24 10:39 BM [id number] 10/05/24 10:44 BMF 10/05/24 10:39 Wound Center [...] Date Recorded By Document 10/05/24 10:52 DL [id number] 10/05/24 10:53 DL 10/05/24 10:52 Wound Care [...] Xeroform to wound base and cover with [place] SAP foam dressing every day. Follow-up in 1 week (2) Infected wound: CODE(S): T14.8XXA - Other injury of unspecified body region, initial encounter; L08.9 - Local infection of the skin and subcutaneous tissue, unspecified (3) Nonhealing nonsurgical wound: CODE(S): T14.8XXA - Other injury of unspecified body region, initial encounter 10/05/24 1215 Cosigner Signature (if applicable): CC: ~ Signed [facility]06-25-2025 Evaluation note* Diagnosis Onset Date Resolution Status Admit Date Infected wound acute October 05, 2024 8:23am Nonhealing nonsurgical wound acute October 05, 2024 8:23am Nonhealing ulcer of right lo wer leg acute October 05, 2024 8:23am [facility] Work Phone: 1(532) 571-321006-25-2025 Evaluation note* Diagnosis Onset Date Resolution Status [...] with necrosis of muscle acute October 11:00am [facility] Work Phone: [phone]) [phone] Evaluation note* Diagnosis Onset Date Resolution Status [...] necrosis of muscle acute November 122024 1:00pm [facility] Work Phone: 1(350) [phone] Evaluation note* Diagnosis Onset Date Resolution Status [...] layer exposed acute January 05, 2025 9:15am [facility] Work Phone: 1([phone]) 444-637502-04-2025 Telephone encounter Note* Telephone Encounter - Ruddy [...] Protocols used: Information Only Call - No [id number] [id number] Miscellaneous Notes* Telephone Encounter - Ruddy Cheatham [...] Protocols used: Information Only Call - No [id number]-[id number] documented in this encounterSWooster Community [id number] History of Present illness Narrative* Reji Maradiaga [...] SCHEDULED FOR THE SURGERY ON 03/05/20 AT [facility] Past Surgical History: Past Surgical History: Procedure Laterality Date CHOLECYSTECTOMY [facility] COLONOSCOPY COLONOSCOPY 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 arthrotomy DIP joint long fingerwith excision of osteophytes. Dr Jackson OTHER SURGICAL HISTORY EXCISION OF LIPOMA FROM THE BACK AT [facility] LONG TIME AGO SCAPHOID FRACTURE SURGERY Right [facility] WISDOM TOOTH EXTRACTION Allergies: Patient has no [...] LABS: 12/18/2023: PSA: 5.480 10/09/2023: PSA: 8.670 ([facility]) 04/20/2023: PSA: 7.200 w/ 31% free PSA ([facility]) 11/28/2022: PSA: 7.440 10/31/2022: PSA: 6.670 05/02/2022: [...] Maradiaga MD 01/02/24 10:34 PM [facility] in [facility] Brother: Dr. Froylan Toribio Nephew: Dr. Aden Toribio (ortho) 06/15/2023: OV RAMON: PVR 124 ml. 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 arthrotomy DIP joint long fingerwith excision of osteophytes. Dr Jackson OTHER SURGICAL HISTORY EXCISION OF LIPOMA FROM THE BACK AT [facility] LONG TIME AGO SCAPHOID FRACTURE SURGERY Right [facility] WISDOM TOOTH EXTRACTION Medications Prior to Admission [...] ng/mL Final Comment: Testing performed on the [employer] using an immunometric methodology. Results obtained by different methods should not be used interchangeably. PROSTATE SPECIFIC AG SCREEN Date Value Ref Range Status 05/02/2022 4.588 (H) <4.000 ng/mL Final [facility] PROSTATE SPECIFIC ANTIGEN Date Value Ref Range Status 09/20/2019 3.523 <4.000 ng/mL Final Comment: Testing performed on the [employer] using an immunometric methodology. Results obtained [...] PM EST PVR 124ml documented in this [facility]11-21-2023 History of Present illness Narrative* Sharon Linton [...] occasionally words are mis-transcribed.) documented in this [facility]11-21-2023 Instructions* Patient Instructions* Stephane Mcgrath, NIA - [...] 8 to 12 times. documented in this [facility]10-10-2023 Telephone encounter Note* Telephone Encounter - Sharon Linton PA-C - 01/20/2023 8:06 AM EDT PAT orders signed [facility] Phone: [phone] 630-786110-10-2023 Miscellaneous Notes* Telephone Encounter - Sharon Linton PA-C - 01/20/2023 8:06 AM EDT PAT orders signed * Telephone Encounter - Shanel Bravo - 01/19/2023 8:57 AM EDT Checked online portal and authorization was approved. Auth# [id number] Valid: 01/13/2023-02/20/2023 * Telephone Encounter - Shanel Bravo - 01/12/2023 9:23 AM EDT Submitted for authorization and it is pending. Uploaded into media. Pending# [id number] * Telephone Encounter - Shanel Bravo - [...] 02/20/23@ 12:00pm Day of Surgery: Thursday Hospital: [place] Duration: 45min Type: Outpatient PAT: No Med Clearance: No Anesthesia: Local Only Block: None Position: Supine Table: Stretcher Arm Board: Roll-up arm table Radiology: None CPT Code: 47739 DX: M67.442 Case# [id number] Consent: LEFT Middle finger digital mucous cyst with possible local tissue advancement FollowUp: Shaila in 10-14 days Special Requests Hand Tray [place] Blade Finger tornicot documented in this [facility]10-09-2023 Telephone encounter Note* Telephone Encounter - Shanel Bravo - 01/19/2023 8:57 AM EDT Checked online portal and authorization was approved. Auth# [id number] Valid: 01/13/2023-02/20/2023 [facility]Tnevhp81-49-7673 Miscellaneous Notes* Telephone Encounter - Shanel Bravo - 01/19/2023 8:57 AM EDT Checked online portal and authorization was approved. Auth# [id number] Valid: 01/13/2023-02/20/2023 * Telephone Encounter - Shanel Bravo - 01/12/2023 9:23 AM EDT Submitted for authorization and it is pending. Uploaded into media. Pending# [id number] * Telephone Encounter - Shanel Bravo - [...] 02/20/23@ 12:00pm Day of Surgery: Thursday Hospital: [place] Duration: 45min Type: Outpatient PAT: No Med Clearance: No Anesthesia: Local Only Block: None Position: Supine Table: Stretcher Arm Board: Roll-up arm table Radiology: None CPT Code: 54640 DX: M67.442 Case# [id number] Consent: LEFT Middle finger digital mucous cyst with possible local tissue advancement FollowUp: Jose Ao in 10-14 days Special Requests Hand Tray [place] Blade Finger tornicot documented in this encounterSWooster Community HospitalSatnuu65-25-6963 Telephone encounter Note* Telephone Encounter - Shanel Bravo - 01/12/2023 9:23 AM EDT Submitted for authorization and it is pending. Uploaded into media. Pending# [id number] [facility] [id number] Telephone encounter Note* Telephone Encounter - Shanel Bravo - 01/12/2023 8:37 AM EDT Sx sent to scheduling. [facility] HospitalDwchba80-23-9450 Telephone encounter Note* Telephone Encounter - Shanel Bravo - 01/09/2023 9:51 AM EDT Patient given all sx information in office. [facility] HospitalDvmdsm54-09-6387 Telephone encounter Note* Telephone Encounter - Shanel Bravo - 01/09/2023 9:40 AM EDT ----- Message from Milind De Leon ATC sent at 01/09/2023 9:34 AM EDT ----- U[facility]ANO SURGERY SCHEDULING SLIP Patient: Stephane Toribio Date of : 1960 Date of Surgery: 02/20/23@ 12:00pm Day of Surgery: Thursday Hospital: [place] Duration: 45min Type: Outpatient PAT: No Med Clearance: No Anesthesia: Local Only Block: None Position: Supine Table: Stretcher Arm Board: Roll-up arm table Radiology: None CPT Code: 41584 DX: M67.442 Case# [id number] Consent: LEFT Middle finger digital mucous cyst with possible local tissue advancement FollowUp: Biro in 10-14 days Special Requests Hand Tray [place] Blade Finger tornicot [facility] [id number] History of Present illness Narrative* Navneet Jackson MD - 01/09/2023 9:15 AM EDT Images from the original note were not included. [facility] [address] [facility] [address] Dept: [phone] Dept 01/09/2023 Chief Complaint Patient presents with [...] Past Surgical History: Procedure Laterality Date CHOLECYSTECTOMY [facility] COLONOSCOPY COLONOSCOPY FINGER AMPUTATION Right 03/05/2020 right small finger - urbano FINGER SURGERY Left [facility] OTHER SURGICAL HISTORY EXCISION OF LIPOMA FROM THE BACK AT [facility] LONG TIME AGO SCAPHOID FRACTURE SURGERY Right [facility] WISDOM TOOTH EXTRACTION Past Medical History: Diagnosis Date H/O exercise stress test Hypertension MACY on CPAP Osteomyelitis (HCC) RIGHT RING FINGER AND SCHEDULED FOR THE SURGERY ON 03/05/20 AT [facility] No Known Allergies Current Outpatient Medications [...] members present regarding thenatural history, etiology, and alf consequences of his condition. I have outlined [...] Follow-up: Stephane will followup with my physician surgery assistant, Sharon Linton PA-C post operatively. He knows to call the office with any questions or concerns in the interim. Future Imaging: NONE Navneet Jackson MD Hand, Plastic, and Reconstructive Surgery [facility] Department of Orthopedics and Sports Medicine 01/09/2023 at 9:24 AM (Please note that portions of this note may have been completed with a voice recognition program. Efforts were made to edit the dictations but occasionally words are mis-transcribed.) documented in this [facility]09-29-2023 Instructions* Patient Instructions* Milind De Leon ATC - 01/09/2023 9:15 AM EDT Shanel Uriostegui Brim Curler for Dr. Navneet Jackson F: [phone] documented in this [facility]09-12-2023 History of Present illness Narrative* Flor Barfield DO - 12/23/2022 8:44 AM EDT PSA ordered, to be collected before April 2023 urology visit documented in this [facility]09-08-2023 History of Present illness Narrative* Flor Barfield [...] procedure well. Condition To Home INDICATIONS: Stephane Toriboi , is a 62 y.o. male who [...] and left [facility] at [facility] was performed using ultrasound guidance. FINDINGS Enlarged prostate Width 6.74 Height 6.257 Length 7.064 Volume 155.81 ml PSA density 0.05 No hypoechoic lesions The patient tolerated procedure well Impression/Plan Re-discussed expectations post prostate biopsy. Patient also reinstructed that [facility] departmentif he develops shaking chills or [...] Gentamycin IM: see MAR. documented in this [facility]09-08-2023 Miscellaneous Notes* Addendum Note - Columba Alejandra [...] AM Modules accepted: Orders documented in this [facility]09-08-2023 Note* Addendum Note - Columba Alejandra RN - 12/19/2022 8:20 AM EDTAddended by: COLUMBA ALEJANDRA on: 12/19/2022 09:15 AM Modules accepted: Orders [facility] HospitalIvgzuc71-26-0247 Note* Addendum Note - Nidhi Cary RN - 12/19/2022 8:20 AM EDTAddended by: ASHLEY LEUNG on: 12/19/2022 09:21 AM Modules accepted: Orders [facility] HospitalSsoeub41-55-2295 Note* Addendum Note - Nidhi Cary RN - 12/19/2022 8:20 AM EDTAddended by: ASHLEY LEUNG on: 12/19/2022 09:25 AM Modules accepted: Orders [facility] HospitalXugjgk08-75-0534 Note* Addendum Note - Columba Alejandra RN - 12/19/2022 8:20 AM EDTAddended by: COLUMBA ALEJANDRA on: 12/19/2022 11:03 AM Modules accepted: Orders [facility] HospitalGpaxjy28-05-7546 Note* Addendum Note - Columba Alejandra RN - 12/19/2022 8:20 AM EDTAddended by: COLUMBA ALEJANDRA on: 12/19/2022 09:15 AM Modules accepted: Orders [facility] HospitalTxzect13-03-7189 Note* Addendum Note - Nidhi Cary RN - 12/19/2022 8:20 AM EDTAddended by: ASHLEY LEUNG on: 12/19/2022 09:21 AM Modules accepted: Orders [facility] HospitalGzsaec83-48-6638 Note* Addendum Note - Nidhi Cary RN - 12/19/2022 8:20 AM EDTAddended by: ASHLEY LEUNG on: 12/19/2022 09:25 AM Modules accepted: Orders [facility] HospitalNlnjow59-93-1911 Note* Addendum Note - Columba Alejandra RN - 12/19/2022 8:20 AM EDTAddended by: COLUMBA ALEJANDRA on: 12/19/2022 11:03 AM Modules accepted: Orders [facility] HospitalTboxfv19-54-5653 Note* Addendum Note - Columba Alejandra RN - 12/19/2022 8:20 AM EDTAddended by: COLUMBA ALEJANDRA on: 12/19/2022 09:15 AM Modules accepted: Orders [facility] HospitalOkpydh52-48-2120 Note* Addendum Note - Nidhi Cary RN - 12/19/2022 8:20 AM EDTAddended by: ASHLEY LEUNG on: 12/19/2022 09:21 AM Modules accepted: Orders [facility] HospitalSngvrq51-06-2552 Note* Addendum Note - Nidhi Cary RN - 12/19/2022 8:20 AM EDTAddended by: ASHLEY LEUNG on: 12/19/2022 09:25 AM Modules accepted: Orders [facility] HospitalRbgvkm36-16-9679 Note* Addendum Note - Columba Alejandra RN - 12/19/2022 8:20 AM EDTAddended by: COLUMBA ALEJANDRA on: 12/19/2022 11:03 AM Modules accepted: Orders [facility] HospitalJunilf36-83-1280 Note* Addendum Note - Columba Alejandra RN - 12/19/2022 8:20 AM EDTAddended by: COLUMBA ALEJANDRA on: 12/19/2022 09:15 AM Modules accepted: Orders [facility] HospitalBmfhce12-42-4197 Note* Addendum Note - Nidhi Cary RN - 12/19/2022 8:20 AM EDTAddended by: ASHLEY LEUNG on: 12/19/2022 09:21 AM Modules accepted: Orders [facility] HospitalVtfxuh05-81-8575 Note* Addendum Note - Nidhi Cary RN - 12/19/2022 8:20 AM EDTAddended by: ASHLEY LEUNG on: 12/19/2022 09:25 AM Modules accepted: Orders [facility] HospitalNfgbii70-41-5993 Note* Addendum Note - Columba Alejandra RN - 12/19/2022 8:20 AM EDTAddended by: COLUMBA ALEJANDRA on: 12/19/2022 11:03 AM Modules accepted: Orders [facility] HospitalUzhrzj68-72-3731 Note* Addendum Note - Columba Alejandra RN - 12/19/2022 8:20 AM EDTAddended by: COLUMBA ALEJANDRA on: 12/19/2022 09:15 AM Modules accepted: Orders [facility] HospitalBvdhsh91-54-9418 Note* Addendum Note - Nidhi Cary RN - 12/19/2022 8:20 AM EDTAddended by: ASHLEY LEUNG on: 12/19/2022 09:21 AM Modules accepted: Orders [facility] HospitalAypbwj86-15-4247 Note* Addendum Note - Nidhi Cary RN - 12/19/2022 8:20 AM EDTAddended by: ASHLEY LEUNG on: 12/19/2022 09:25 AM Modules accepted: Orders [facility] HospitalFizsvt93-51-0038 Note* Addendum Note - Columba Alejandra RN - 12/19/2022 8:20 AM EDTAddended by: COLUMBA ALEJANDRA on: 12/19/2022 11:03 AM Modules accepted: Orders [facility] HospitalMfmdlr74-69-2161 Note* Addendum Note - RUBIN Piedra CNP - 12/08/2022 8:54 AM EDTAddended by: STEPH HENSON on: 12/08/2022 08:54 AM Modules accepted: Orders [facility] HospitalRwkxfi51-69-9590 Note* Addendum Note - RUBIN Piedra CNP - 12/08/2022 8:54 AM EDTAddended by: STEPH HENSON on: 12/08/2022 08:54 AM Modules accepted: Orders [facility] HospitalHfabqk92-48-2076 Miscellaneous Notes* Addendum Note - RUBIN Piedra CNP - 12/08/2022 8:54 AM EDTAddended by: STEPH HENSON on: 12/08/2022 08:54 AM Modules accepted: Orders * Telephone Encounter - RUBIN Piedra CNP - 12/08/2022 8:50 AM EDT Medication orders placed. Sent to [facility] Tade[facility]. Pt to take valium 30 minutes prior. 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 * Telephone Encounter - Mita Maria [...] in your PSA levels. documented in this [facility]08-28-2023 Telephone encounter Note* Telephone Encounter - RUBIN Piedra CNP - 12/08/2022 8:50 AM EDT Medication orders placed. Sent to [employer] [facility]. Pt to take valium 30 minutes prior. 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 [facility] Eqpeha32-49-7276 Telephone encounter Note* Telephone Encounter - Mita Maria - 12/08/2022 8:28 AM EDT Spoke to pt, advised of Dean's message. Pt Voiced understanding and would like to proceed with the TRUS BX. Information about testing sent via My Chart. Pharmacy is updated. [facility] Lyfyza14-16-4105 Telephone encounter Note* Telephone Encounter - RUBIN Ramirez NP - 12/08/2022 8:12 AM EDT Please notify the patient his repeat PSA 7.44, this is higher than prior PSA result. I recommend patient be scheduled for prostate biopsy as previously discussed. If he is agreeable, let me know and I will order medications. [facility] Fetuam60-75-4629 Telephone encounter Note* Telephone Encounter - Ivory Haas RN - 11/03/2022 9:52 AM EDT Spoke with patient. Advised of results of PSA, elevated. Repeat in 4 weeks. Instructed to hold any sexual activity, bike riding, riding lawnmower, strenuous activity about 24 hours prior. Will call with results and if still elevated, will proceed with prostate biopsy. Pt agreed. [facility] Nmofte78-36-8097 Telephone encounter Note* Telephone Encounter - RUBIN [...] a temporary rise in your PSA levels. [facility] HospitalXstdtl61-39-4436 Telephone encounter Note* Telephone Encounter - Kassidy Juarez LPN - 10/28/2022 4:13 PM EDT Patient informed of dean's message verbatim to repeat PSA around . Patient verbalized understanding and have no further questions or concerns at this time [facility] HospitalTrmdir85-64-5290 Miscellaneous Notes* Telephone Encounter - Kassidy Juarez [...] patient to repeat PSA documented in this encounterSWooster Community HospitalClrkmd95-74-6325 Telephone encounter Note* Telephone Encounter - Karolina Krueger RN - 10/28/2022 9:29 AM EDT LVM to have PSA done this week. Advised to call office if any questions. [facility] HospitalIjahqu57-37-6337 Telephone encounter Note* Telephone Encounter - RUBIN Ramirez NP - 10/28/2022 7:56 AM EDT Please call the patient to remind him to repeat PSA now, the order is in. Thanks. [facility] HospitalLzwici06-30-9540 Telephone encounter Note* Telephone Encounter - RUBIN Ramirez NP - 10/28/2022 7:55 AM EDT ----- Message from RUBIN Ramirez NP sent at 05/07/2022 3:34 PM EST ----- Notify patient to repeat PSA [facility] HospitalCatjeu48-56-5453 History of Present illness Narrative* RUBIN Ramirez [...] SCHEDULED FOR THE SURGERY ON 03/05/20 AT [facility] Past Surgical History: Procedure Laterality Date CHOLECYSTECTOMY [facility] COLONOSCOPY COLONOSCOPY FINGER AMPUTATION Right 03/05/2020 right small finger -dr jackson FINGER SURGERY Left [facility] OTHER SURGICAL HISTORY EXCISION OF LIPOMA FROM THE BACK AT [facility] LONG TIME AGO SCAPHOID FRACTURE SURGERY Right [facility] WISDOM TOOTH EXTRACTION Vitals: BP (!) 157/68 [...] Status 05/02/2022 4.588 (H) <4.000 ng/mL Final [facility] PROSTATE SPECIFIC ANTIGEN Date Value Ref Range [...] for BPH/PSA check . --Dean Arriaga APRN, OPTICAL INSTRUMENT ASSEMBLER on 05/07/2022 at 3:25 PM An electronic signature was used to authenticate this note. documented in this [facility]CivW[facility] HospitalGzhisg49-11-2462 Hospital Discharge instructions* Instructions* Dora Beavers - 04/07/2019 Patient ambulatory for discharge post stress test. No apparent distress noted. Patient voiced no complaints. documented in this [facility] Phone: [phone] 499-845412-26-2019 History of Present illness Narrative* Dora Beavers - 04/07/2019 1:30 PM EST Test explained, patient verbalized understanding. At peak exercise patient complained of dyspnea and fatigue which resolved in early recovery. Denied chest pain before during or after exercise. No complaints in recovery. documented in this [facility] [employer] Work Phone: Discharge summary Author Kamaljit Bach [facility] Note Date/Time January 16, 2025 1: 35pm [facility] [address] [place] [address] Discharge Summary Signed Patient: Stephane Toribio MR#: [id number] : 1960 Acct:[id number] Age/Sex: 64 / M Adm Date: 5 Loc: 4N Room: [address] [place] [address]: Kamaljit Bach MD Copies to: [...] will be followed by his urologist in [facility]. Time Spent with Patient Time spent [...] I would notify your urologist in the [facility] immediately of what has occurred. I will provide some antibiotics to your pharmacy. Discharge him with indwelling catheter and then follow-up with urology in the [facility] Instructions: Know your Meds Prescriptions: New cephalexin [...] I would notify your urologist in the [facility] immediately of what has occurred. I will provide some antibiotics to your pharmacy. NON STAFF, [Primary Care Provider, Internal Medicine] Referral Note: Please arrange a follow-up appointment with your primary care provider within 7-10 days. Continuity of Care Document Health Concerns: A [facility] screening has identified you as FRAIL [...] Strong: Four Ways to Beat the Frailty [email or web address]-[email or web address]-the-[email or web address] [email or web address] Exam Physical Exam Vital Signs: Temp Pulse Resp BP Pulse Ox O2 Del Method O2 Flow Rate 98.2 F 67 18 146/79 H 96 Room Air 6 01/16/25 12:09 01/16/25 12:09 01/16/25 12:09 01/16/25 12:09 01/16/25 12:09 01/16/25 08:15 01/15/25 12:50 Documented By: Kamaljit Bach MD 01/16/25 1332 Signed By: <Electronically signed by Kamaljit Bach MD> 01/16/25 1335 [facility] Work Phone: Evaluation noteNo assessment information available [facility] Work Phone: Evaluation note* Diagnosis Encounter for screening for malignant neoplasm of prostate- Primary documented in this encounter [facility] HealthEvaluation note* Diagnosis Elevated PSA- Primary Elevated prostate specific antigen (PSA) documented in this encounter [facility] note* Diagnosis Elevated PSA Elevated prostate specific antigen (PSA) documented in this encounter [facility]Evaluation note* Diagnosis Elevated PSA- Primary Elevated prostate specific antigen (PSA) documented in this encounter [facility] note* Diagnosis Digital mucous cyst of finger of left hand 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 Digital mucous cyst of right hand documented in this encounter [facility] note* Diagnosis Digital mucous cyst of finger of left hand documented in this encounter [facility]* Diagnosis Digital mucous cyst of finger of left hand Ganglion, left hand documented in this encounter [facility]* Diagnosis Digital mucous cyst of finger of left hand Ganglion, left hand [facility]* Diagnosis Digital mucous cyst of finger of left hand 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 documented in this encounter [facility]* 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documented in this [facility]* Diagnosis Low back pain, unspecified documented in this encounter [facility]* Diagnosis Incomplete bladder emptying- Primary Benign prostatic hyperplasia with nocturia Elevated PSA Elevated prostate specific antigen (PSA) documented in this encounter [facility] note* Diagnosis Pure hypercholesterolemia, unspecified- Primary Essential (primary) hypertension Unspecified essential hypertension Benign prostatic hyperplasia without lower urinary tract symptoms Elevated prostate specific antigen (PSA) documented in this encounter [facility]* Diagnosis 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 [facility]* Diagnosis Low back pain, unspecified- Primary documented in this encounter [facility]* Diagnosis Low back pain, unspecified- Primary Low back pain, unspecified [facility]* Diagnosis Benign prostatic hyperplasia with nocturia Incomplete bladder emptying documented in this encounter [facility]* Diagnosis Elevated PSA- Primary Elevated prostate specific antigen (PSA) Incomplete bladder emptying Nocturia Weak urinary stream Slowing of urinary stream documented [facility] this [facility]* Diagnosis Screening PSA (prostate specific antigen)- Primary Special screening for malignant neoplasm of prostate Benign prostatic hyperplasia with nocturia Lack of energy Other malaise and fatigue documented in this encounter [facility]* Diagnosis Other forms of dyspnea Acute cough documented in this encounter [facility]* Diagnosis Palpitations documented in this encounter [facility]* Diagnosis Other forms of dyspnea- Primary Acute cough Other forms of dyspnea Acute cough documented in this encounter [facility]* Diagnosis Palpitations- Primary Palpitations documented in this encounter [facility]* Diagnosis Pure hypercholesterolemia documented in this encounter [facility] Work Phone: Evaluation note* Diagnosis Benign prostatic hyperplasia with nocturia Incomplete bladder emptying documented in this encounter [facility]* Diagnosis Incomplete bladder emptying- Primary Nocturia Frequency of urination Urinary frequency Benign prostatic hyperplasia with nocturia Elevated PSA Elevated prostate specific antigen (PSA) documented in this encounter [facility]* Diagnosis Elevated PSA- Primary Elevated prostate specific antigen (PSA) documented in this encounter [facility]* Diagnosis Elevated PSA- Primary Elevated prostate specific antigen (PSA) documented [facility] encounter [facility]* Diagnosis Elevated PSA Elevated prostate specific antigen (PSA) documented in this encounter [facility]* Diagnosis Elevated PSA- Primary Elevated prostate specific antigen (PSA) documented in this [facility]* Diagnosis Elevated PSA- Primary Elevated prostate specific antigen (PSA) documented in this [facility]* Diagnosis Elevated PSA- Primary Elevated prostate specific antigen (PSA) documented in this encounter [facility]* Diagnosis Gross hematuria- Primary Menodza catheter in place Other postprocedural status Urinary retention Unspecified retention of urine Bladder spasms Hypertonicity of bladder documented in this encounter [facility]* Diagnosis Urinary retention- Primary Unspecified retention of urine Benign prostatic hyperplasia with nocturia Bladder spasms Hypertonicity of bladder Elevated PSA Elevated prostate specific antigen (PSA) documented in this encounter [facility] note* Diagnosis Benign prostatic hyperplasia with nocturia- Primary Urinary retention Unspecified retention of urine [facility] Bladder spasm- Primary Hypertonicity of bladder Bladder spasm Hypertonicity of bladder Lower abdominal pain Abdominal pain, other specified site Urinary tract infection associated with indwelling urethral catheter, initial encounter Urine retention Unspecified retention of urine Lower abdominal pain Abdominal pain, other specified site Urine retention Unspecified retention of urine [facility] Diagnosis Bacteria in urine- Primary Other nonspecific finding on examination of urine [facility] Diagnosis Bladder spasms Hypertonicity of bladder [facility] Diagnosis Urinary retention- Primary Unspecified retention of urine Bladder spasms Hypertonicity of bladder Elevated PSA Elevated prostate specific antigen (PSA) Benign prostatic hyperplasia with nocturia documented in this encounter [facility] Author Augusto Dunia [facility] Note Date/Time January 14, 2025 6: 15pm [facility] [address] [place] [address] Hospitalist H&P Signed Patient: Stephane Toribio MR#: [id number] : 1960 Acct:[id number] Age/Sex: 64 / M Adm Date: 5 Loc: ER Room: Type: [facility] ER Attending Dr: Copies to: NON STAFF MD Roverto Raphael, DO~ HPI DATE OF EXAMINATION: 01/14/25 CHIEF COMPLAINT: Gross hematuria HISTORY OF PRESENT ILLNESS: Patient is a 64-year-old male with past medical history significant for BPH who presents with gross hematuria. Patient reports earlier today of having difficulties urinating so decided go to [facility] ER for further evaluation where he was determined have urinary tension and Mendoza catheter was placed. Patient reports later of having gross blood with clotting so decided come to [facility] ER for further evaluation and management. Patient currently being worked up with urologist in [place] due to enlarged prostate with nodules. In [...] the bedside and will be admitted to [facility] telemetry for further evaluation management. Review of [...] % (Auto) 22.8 % (.) 01/14/25 15:50 [place] % (Auto) 12.4 % (.) 01/14/25 15:50 Eos % (Auto) 0.6 % (.) 01/14/25 15:50 Baso % (Auto) 0.5 % (.) 01/14/25 15:50 Nucleat RBC Rel Count 0.3 /100 WBC (0-0.5) 01/14/25 15:50 Neut # (Auto) 3.9 x10E3/uL (1.8-7.7) 01/14/25 15:50 Lymph # (Auto) 1.4 x10E3/uL (1.00-4.8) 01/14/25 15:50 [place] # (Auto) 0.8 x10E3/uL (0.0-0.8) 01/14/25 15:50 [...] pH 6.0 (5.0-9.0) 01/14/25 11:21 Ur Specific [place] 1.006 (1.001-1.030) 01/14/25 11:21 Urine Protein 30 [...] days): 2 Documented By: Augusto Duque MD 01/14/257 Signed By: <Electronically signed by Augusto Duque MD> 01/14/25 1814 [facility] Work Phone: Hospital Discharge instructions Additional Instructions *Once you are discharged, there will be a plug in the irrigation port of the catheter. Push fluids to keep the urine clear. I would notify your urologist in the [facility] immediately of what has occurred. I will provide some antibiotics to your pharmacy. Discharge him with indwelling catheter and then follow-up with urology in the [facility] Work Phone: Progress note Author Kasia Choi [facility] Note Date/Time January 26, 2025 9 :09am [facility] [address] [place] [address] OFFICE VISIT Date of Service: 01/26/25 MR#: [id number] Acct: [id number] Name: STEPHANE TORIBIO Rep #: [id number] : 1960 Provider: Dr. Sigifredo Choi MD Age/Sex: 64/M Location: [facility] Status: Signed HPI HPI History of [...] Source Monitor Intake Visit Reasons: Atrial fibrillation Manager Corporate Responsibility Required: No Accompanied by: Is patient in [...] mg PO DAILY 11/26/1710/05 History omega-3 1,050 by-hch-kth-dpa-fish 1 ea PO DAILY 01/16/25 History oil 1,200 mg capsule ([place]-3 2100) vitamin B comp and C no.3 [...] Father Diabetes Arthritis Mother Arthritis Heart disease MD Grandfather Heart disease rheumatic heart disease Social [...] (if applicable) CC: Dr. Abimael Elizabeth, ~ [facility] Work Phone: Reason for referral (narrative)No reason for referral information [facility] Work Phone: Reason for visit Narrative* Cardiology (Routine) - Closed Specialty Diagnoses / Procedures Referred By Contac t Referred To Contact Cardiology Diagnoses Palpitations Procedures Cardiac event monitor (14 days) [place] XTRNL ECG & 48 HR RECORDING [place] EXTERNAL ECG SCANNING ANALYSIS REPORT [place] XTRNL ECG CONTINUOUS RHYTHM W/I&R UP TO 48 HRS [place] XTRNL MOBILE CV TELEMETRY W/I&REPORT 30 DAYS [place] XTRNL MOBILE CV TELEMETRY W/TECHNICAL SUPPORT Tresa Jordan [address] [place] [address] Phone: tel: fax: Referral ID Status Reason Start Date Expiration Date Visits Re quested Visits Authorized [id number] Closed 06/10/2024 06/05/2025 1 1 [employer] for visit Narrative* Imaging (Routine) - Pending Review Specialty Diagnoses / Procedures Referred By Contac t Referred To Contact Radiology Diagnoses Pure hypercholesterolemia Procedures CT cardiac scoring wo IV contrast Abimael Elizabeth DO [address] [place] [address] Phone: tel: fax: Referral ID Status Reason Start Date Expiration Date Visits Requested Visits Authorized [id number] Pending Review Perform Procedure 10/31/2024 10/31/2025 1 1 [facility] Work Phone: Reason for visit Narrative* Imaging (Routine) - Closed Specialty Diagnoses / Procedures Referred By Contac t Referred To Contact Radiology Diagnoses Elevated PSA Procedures MR pelvis w and wo contrast Reji Maradiaga MD [address] [facility] [address] [place] [address] Phone: tel: fax: Referral ID Status Reason Start Date Expiration Date Visits Re quested Visits Authorized [id number] Closed 01/05/2025 01/05/2026 1 1 [facility] Summary Purpose Family History No Family History Records Found Relationship Condition Age at Onset Recorded Date/T sharmaine father Diabetes mellitus Unknown Arthritis Unknown mother Arthritis Unknown Cardiac disease Unknown grandfather Cardiac disease Unknown Advance Directives No Advanced Directives Records FoundDocuments on File Type Date Recorded Patient Collar Turner Expl anation Advance Directives and Living Will Power of Post Splitter Documents on File Type Date Recorded Patient Collar Turner Expl anation ACP-Advance Directive ACP-Power of Post Splitter Documents on File Type Date Recorded Patient Collar Turner Expl anation Advance Directives and Livin g Will 03/02/2020 12:59 PM ACP-Advance Directive ACP-Power of Post Splitter Latest Code Status on File Code Status Date Activated Date Inactivated Comments Full Code 03/05/2020 11:21 AM Documents on File Type Date Recorded Patient Collar Turner Expl anation ACP-Advance Directive 03/02/2020 12:59 PM Latest Code Status on File Code Status Date Activated Date Inactivated Comments Full Code 03/05/2020 11:21 AM 03/05/2020 5:02 PM Advance Directive Response Recorded Date/ Time Living Will No November 26, 8 8:32am Power of Post Splitter No November 26, 2 018 8:32am Documents on File Type Date Recorded Patient Collar Turner Expl anation Advance Directives and Living Will 03/01/2020 Documents on File Type Date Recorded Patient Collar Turner Expl anation Advance Directives and Livin g Will 03/01/2020 Advance Directives and Livin g Will 01/09/2023 9:57 AM Latest Code Status on File Code Status Date Activated Date Inactivated Comments Full Code 02/20/2023 10:34 AM 02/20/2023 2:56 PM Date Activated Date Inactivated Comments 02/20/2023 10:34 AM 02/20/2023 2:56 PM Documents on File Type Date Recorded Patient Collar Turner Expl anation Advance Directives and Livin g [...] be sent through Care Everywhere. * Cellulitis (Bulgarian) * Paronychia (Bulgarian) documented in this encounter* Instructions* Brenda Jack [...] control. You may also take the prescribed Eloy for pain relief and alternate this with [...] PHASE II . ALERT SPONT RESP. 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 * Lucy Stevenson RN - [...] section and content) DATE CREATED AUTHOR 01/02/2018 [facility] DATE CREATED AUTHOR AUTHOR'S ORGANIZ ATION 12/23/2021 [facility] DATE CREATED AUTHOR AUTHOR'S ORGANIZ ATION 11/10/2024 [facility] DATE CREATED AUTHOR AUTHOR'S ORGANIZ ATION 01/28/2025 [facility] DATE CREATED AUTHOR AUTHOR'S ORGANIZ ATION 02/11/2025 [facility] [employer] [facility] DATE CREATED AUTHOR AUTHOR'S ORGANIZ ATION 02/14/2025 [facility] DATE CREATED AUTHOR AUTHOR'S ORGANIZ ATION 02/23/2025 [facility] Reason for Visit (unrecogniz ed section and [...] initial encounter Procedures . Suleiman Rey MD [address] [place] [address] Phone: tel: fax: [facility] Observation Unit [address] [place] [phone] Phone: tel: Referral ID Status Reason Start Date Expiration Date Visits Re quested Visits Authorized [id number] 1 1 Reason Onset Date Comments Other [...] January 14, 2025 End: January 16, 2025 Hearing Aid Technician Relationship Specialty Start Date End Date Luis ElizabethuaDO [address] [place], [place] [address] PCP - General 09/05/17 Hearing Aid Technician Relationship Specialty Start Date End Date Luis Elizabethua [address] [place] [address] PCP - General 09/05/17 Hearing Aid Technician Relationship Specialty Start Date End Date Luis Elizabethua [address] [place] [phone] PCP - General 09/05/17 Hearing Aid Technician Relationship Specialty Start Date End Date Luis ElizabethuaDO [address] [place] [phone] PCP - General 09/05/17 Hearing Aid Technician Relationship Specialty Start Date End Date Abimael Elizabeth DO [address] [place] [phone] PCP - General 09/05/17 Flor Barfield DO [address] [place] [address] Surgeon Urology 12/19/22 Hearing Aid Technician Relationship Specialty Start Date End Date Abimael Elizabeth DO [address] [place] [phone] PCP - General 09/05/17 Flor Barfield DO [address] [place] [address] Surgeon Urology 12/19/22 Hearing Aid Technician Relationship Specialty Start Date End Date Abimael Elizabeth DO [address] [place] [phone] PCP - General 09/05/17 Flor Barfield DO [address] [place] [address] Surgeon Urology 12/19/22 Hearing Aid Technician Relationship Specialty Start Date End Date Abimael Elizabeth [address] [place] [phone] PCP - General 09/05/17 Flor Barfield DO [address] [place] [address] Surgeon Urology 12/19/22 Hearing Aid Technician Relationship Specialty Start Date End Date Abimael Elizabeth DO [address] [place] [phone] PCP - General 09/05/17 Flor Barfield DO [address] [place] [address] Surgeon Urology 12/19/22 Hearing Aid Technician Relationship Specialty Start Date End Date Abimael Elizabeth DO [address] [place] [phone] PCP - General 09/05/17 Flor Barfield DO [address] [place] [address] Surgeon Urology 12/19/22 Hearing Aid Technician Relationship Specialty Start Date End Date Abimael Elizabeth DO [address] [place] [phone] PCP - General 09/05/17 Flor Barfield DO [address] [place] [address] Surgeon Urology 12/19/22 Hearing Aid Technician Relationship Specialty Start Date End Date Abimael Elizabeth [address] [place] [phone] PCP - General 09/05/17 Flor Barfield DO [address] [place] [address] Surgeon Urology 12/19/22 Hearing Aid Technician Relationship Specialty Start Date End Date GlennAbimael viramontes [address] [place] [phone] PCP - General 09/05/17 Flor Barfield DO [address] [place] [address] Surgeon Urology 12/19/22 Hearing Aid Technician Relationship Specialty Start Date End Date Abimael Elizabeth [address] [place] [phone] PCP - General 09/05/17 Flor Barfield DO [address] [place] [address] Surgeon Urology 12/19/22 Hearing Aid Technician Relationship Specialty Start Date End Date Glenn AbimaelDO [address] [place] [phone] PCP - General 09/05/17 Flor Barfield DO [address] [place] [address] Surgeon Urology 12/19/22 Hearing Aid Technician Relationship Specialty Start Date End Date Glenn AbimaelDO [address] [place] [phone] PCP - General 09/05/17 Flor Barfield DO [address] [place] [address] Surgeon Urology 12/19/22 Hearing Aid Technician Relationship Specialty Start Date End Date Abimael Elizabeth DO [address] [place] [phone] PCP - General 09/05/17 Flor Barfield DO [address] [place] [address] Surgeon Urology 12/19/22 Hearing Aid Technician Relationship Specialty Start Date End Date Abimael Elziabeth DO [address] [place] [phone] PCP - General 09/05/17 Flor Barfield DO [address] [place] [address] Surgeon Urology 12/19/22 Hearing Aid Technician Relationship Specialty Start Date End Date Abimael Elizabeth DO [address] [place] [phone] PCP - General 09/05/17 Flor Barfield DO [address] [place] [address] Surgeon Urology 12/19/22 Hearing Aid Technician Relationship Specialty Start Date End Date Abimael Elizabeth DO [address] [place] [phone] PCP - General 09/05/17 Flor Barfield DO [address] [place] [address] Surgeon Urology 12/19/22 Reji Maradiaga MD [address] [place] [address] Surgeon Urology 01/01/24 Hearing Aid Technician Relationship Specialty Start Date End Date Abimael Elizabeth DO [address] [place] [phone] PCP - General 09/05/17 Flor Barfield DO [address] [place] [address] Surgeon Urology 12/19/22 Reji Maradiaga MD [address] [place] [phone] Surgeon Urology 01/01/24 Hearing Aid Technician Relationship Specialty Start Date End Date Abimael Elizabeth DO [address] [place] [phone] PCP - General 09/05/17 Hearing Aid Technician Relationship Specialty Start Date End Date Abimael Elizabeth DO [address] [place] [phone] PCP - General 09/05/17 Flor Barfield DO [address] [place] [address] Surgeon Urology 12/19/22 Reji Maradiaga MD [address] [place] [address] Surgeon Urology 01/01/24 Hearing Aid Technician Relationship Specialty Start Date End Date Abimael Elizabeth DO [address] [place] [phone] PCP - General 09/05/17 Flor Barfield DO [address] [place], [place] [phone] Surgeon Urology 12/19/22 Reji Maradiaga MD [address] [place] [phone] Surgeon Urology 01/01/24 Hearing Aid Technician Relationship Specialty Start Date End Date Abimael Elizabeth DO [address] [place] [phone] PCP - General 09/05/17 Flor Barfield DO [address] [place] [address] Surgeon Urology 12/19/22 Reji Maradiaga MD [address] [place] [phone] Surgeon Urology 01/01/24 Hearing Aid Technician Relationship Specialty Start Date End Date Abimael Elizabeth DO [address] [place] [phone] PCP - General 09/05/17 Flor Barfield DO [address] [place] [address] Surgeon Urology 12/19/22 Reji Maradiaga MD [address] [place] [phone] Surgeon Urology 01/01/24 Team Status: Active Member [...] End: October 10, 2024 Chacha Dunham NP, DIRECTOR CLINICAL APPLICATIONS-C Attending Provider Active Start: October 05, 2024 End: October 10, 2024 Susan Ray NP Referring Provider Active St art: October 05, 2024 End: October 10, 2024 Team Status: Active Member Role/Relationship Status Dates Dr. Abimael Elizabeth DO Primary Care Provider Active Start: October 05, 2024 Chacha Dunham DIRECTOR CLINICAL APPLICATIONS, DIRECTOR CLINICAL APPLICATIONS-C Attending Provider Active Start: October 05, 2024 Chacha Dunham DIRECTOR CLINICAL APPLICATIONS, DIRECTOR CLINICAL APPLICATIONS-C Other Provider Active S tart: October 05, 2024 Susan Ray NP Referring Provider Active St art: October 05, 2024 Hearing Aid Technician Relationship Specialty Start Date End Date Abimael Elizabeth DO [address] [place] [address] PCP - General Family Medicine 11/03/24 Team Status: Active Member Role/Relationship Status Dates Dr. Abimael Elizabeth DO Primary Care Provider Active Start: October 12, 2024 Chacha Dunham DIRECTOR CLINICAL APPLICATIONS, DIRECTOR CLINICAL APPLICATIONS-C Attending Provider Active Start: October 12, 2024 Chacha Dunham DIRECTOR CLINICAL APPLICATIONS, DIRECTOR CLINICAL APPLICATIONS-C Other Provider Active S tart: October 12, 2024 Flor DIRECTOR CLINICAL APPLICATIONS, [place] Referring Provider Active St art: October 12, 2024 Team Status: Active Member Role/Relationship Status Dates Dr. Abimael Elizabeth DO Primary Care Provider Active Start: October 26, 2024 Chacha Dunham DIRECTOR CLINICAL APPLICATIONS, DIRECTOR CLINICAL APPLICATIONS-C Attending Provider Active Start: October 26, 2024 Chacha Dunham DIRECTOR CLINICAL APPLICATIONS, DIRECTOR CLINICAL APPLICATIONS-C Other Provider Active S tart: October 26, 2024 Flor DIRECTOR CLINICAL APPLICATIONS, [place] Referring Provider Active St art: October 26, 2024 Team Status: Active Member Role/Relationship Status Dates Dr. Abimael Elizabeth DO Primary Care Provider Active Start: November 02, 2024 Chacha Dunham DIRECTOR CLINICAL APPLICATIONS, DIRECTOR CLINICAL APPLICATIONS-C Attending Provider Active Start: November 02, 2024 Chacha Dunham DIRECTOR CLINICAL APPLICATIONS, DIRECTOR CLINICAL APPLICATIONS-C Other Provider Active S tart: November 02, 2024 Flor DIRECTOR CLINICAL APPLICATIONS, [place] Referring Provider Active St art: November 02, 2024 Team Status: Inactive Member Role/Relationship Status Dates Dr. Abimael Elizabeth DO Primary Care Provider Active Start: November 09, 2024 End: November 10, 2024 Chacha Dunham DIRECTOR CLINICAL APPLICATIONS, DIRECTOR CLINICAL APPLICATIONS-C Attending Provider Active Start: November 09, 2024 End: November 10, 2024 Flor DIRECTOR CLINICAL APPLICATIONS, [place] Referring Provider Active St art: November 09, 2024 End: November 10, 2024 Team Status: Active Member Role/Relationship Status Dates Dr. Abimael Elizabeth DO Primary Care Provider Active Start: November 09, 2024 Chacha Dunham DIRECTOR CLINICAL APPLICATIONS, DIRECTOR CLINICAL APPLICATIONS-C Attending Provider Active Start: November 09, 2024 Chacha Dunham DIRECTOR CLINICAL APPLICATIONS, DIRECTOR CLINICAL APPLICATIONS-C Other Provider Active S tart: November 09, 2024 Flor DIRECTOR CLINICAL APPLICATIONS, [place] Referring Provider Active St art: November 09, 2024 Team Status: Active Member Role/Relationship Status Dates Dr. Abimael Elizabeth DO Primary Care Provider Active Start: November 23, 2024 Chacha Dunham DIRECTOR CLINICAL APPLICATIONS, DIRECTOR CLINICAL APPLICATIONS-C Attending Provider Active Start: November 23, 2024 Chacha Dunham DIRECTOR CLINICAL APPLICATIONS, DIRECTOR CLINICAL APPLICATIONS-C Other Provider Active S tart: November 23, 2024 Susan Ray NP Referring Provider Active St art: November 23, 2024 Team Status: Active Member Role/Relationship Status Dates Dr. Abimael Elizabeth DO Primary Care Provider Active Start: December 01, 2024 Chacha Dunham NP, DIRECTOR CLINICAL APPLICATIONS-C Other Provider Active S tart: December 01, [...] [place] Other Provider Active Start: A ug2024 Hearing Aid Technician Relationship Specialty Start Date End Date Abimael Elizbaeth DO [facility][note 3] [place] [address] PCP - General 09/05/17 Flor Barfield DO [address] [place] [address] Surgeon Urology 12/19/22 Reji Maradiaga MD [address] [place] [address] Surgeon Urology 01/01/24 Hearing Aid Technician Relationship Specialty Start Date End Date Abimael Elizabeth DO [address] [place] [phone] PCP - General 09/05/17 Flor Barfield DO [address] [place], [place] [phone] Surgeon Urology 12/19/22 Reji Maradiaga MD [address] [place] [phone] Surgeon Urology 01/01/24 Hearing Aid Technician Relationship Specialty Start Date End Date Abimael Elizabeth DO [address] [place] [address] PCP - General 09/05/17 Flor Barfield DO [address] [place], [place] [phone] Surgeon Urology 12/19/22 Reji Maradiaga MD [address] [place] [phone] Surgeon Urology 01/01/24 Hearing Aid Technician Relationship Specialty Start Date End Date Abimael Elizabeth DO [address] [place] [phone] PCP - General 09/05/17 Flor Barfield DO [address] [place] [address] Surgeon Urology 12/19/22 Reji Maradiaga MD [address] [place] [address] Surgeon Urology 01/01/24 Hearing Aid Technician Relationship Specialty Start Date End Date Abimael Elizabeth DO [address] [place] [address] PCP - General 09/05/17 Flor Barfield DO [address] [place] [address] Surgeon Urology 12/19/22 Reji Maradiaga MD [address] [place] [address] Surgeon Urology 01/01/24 Hearing Aid Technician Relationship Specialty Start Date End Date Abimael Elizabeth DO [address] [place] [address] PCP - General 09/05/17 Flor Barfield DO [address] [place] [address] Surgeon Urology 12/19/22 Reji Maradiaga MD [address] [place] [phone] Surgeon Urology 01/01/24 Team Status: Active Member Role/Relationship Status Dates Dr. Abimael Elizabeth DO Primary care physician Active Team Status: Inactive Member Role/Relationship Status Dates Dr. Abimael Elizabeth DO Primary care physician Active Start: October 05, 2024 End: October 10, 2024 Chacha Dunham DIRECTOR CLINICAL APPLICATIONS, DIRECTOR CLINICAL APPLICATIONS-C Attending physician Active Start: October 05, 2024 End: October 10, 2024 Flor DIRECTOR CLINICAL APPLICATIONS, [place] Referring Provider Active St art: October 05, 2024 End: October 10, 2024 Team Status: Active Member Role/Relationship Status Dates Dr. Abimael Elizabeth DO Primary care physician Active Start: October 05, 2024 Chacha Dunham DIRECTOR CLINICAL APPLICATIONS, DIRECTOR CLINICAL APPLICATIONS-C Attending physician Active Start: October 05, 2024 Chacha Dunham DIRECTOR CLINICAL APPLICATIONS, DIRECTOR CLINICAL APPLICATIONS-C Nurse Practitioner Active Start: October 05, 2024 Flor DIRECTOR CLINICAL APPLICATIONS, [place] Referring Provider Active St art: October 05, 2024 Team Status: Active Member Role/Relationship Status Dates Dr. Abimael Elizabeth DO Primary care physician Active Start: October 12, 2024 Chacha Dunham DIRECTOR CLINICAL APPLICATIONS, DIRECTOR CLINICAL APPLICATIONS-C Attending physician Active Start: October 12, 2024 Chacha Dunham DIRECTOR CLINICAL APPLICATIONS, DIRECTOR CLINICAL APPLICATIONS-C Nurse Practitioner Active Start: October 12, 2024 Flor DIRECTOR CLINICAL APPLICATIONS, [place] Referring Provider Active St art: October 12, 2024 Team Status: Active Member Role/Relationship Status Dates Dr. Abimael Elizabeth DO Primary care physician Active Start: October 26, 2024 Chacha Dunham DIRECTOR CLINICAL APPLICATIONS, DIRECTOR CLINICAL APPLICATIONS-C Attending physician Active Start: October 26, 2024 Chacha Dunham DIRECTOR CLINICAL APPLICATIONS, DIRECTOR CLINICAL APPLICATIONS-C Nurse Practitioner Active Start: October 26, 2024 Flor DIRECTOR CLINICAL APPLICATIONS, [place] Referring Provider Active St art: October 26, 2024 Team Status: Active Member Role/Relationship Status Dates Dr. Abimael Elizabeth DO Primary care physician Active Start: November 02, 2024 Chacha Dunham DIRECTOR CLINICAL APPLICATIONS, DIRECTOR CLINICAL APPLICATIONS-C Attending physician Active Start: November 02, 2024 Chacha Dunham DIRECTOR CLINICAL APPLICATIONS, DIRECTOR CLINICAL APPLICATIONS-C Nurse Practitioner Active Start: November 02, 2024 Flor DIRECTOR CLINICAL APPLICATIONS, [place] Referring Provider Active St art: November 02, 2024 Team Status: Inactive Member Role/Relationship Status Dates Dr. Abimael Elizabeth DO Primary care physician Active Start: November 09, 2024 End: November 10, 2024 Chacha Dunham NP, DIRECTOR CLINICAL APPLICATIONS-C Attending physician Active Start: November 09, 2024 End: November 10, 2024 Flor DIRECTOR CLINICAL APPLICATIONS, [place] Referring Provider Active St art: November 09, 2024 End: November 10, 2024 Team Status: Active Member Role/Relationship Status Dates Dr. Abimael Elizabeth DO Primary care physician Active Start: November 09, 2024 Chacha Dunham DIRECTOR CLINICAL APPLICATIONS, DIRECTOR CLINICAL APPLICATIONS-C Attending physician Active Start: November 09, 2024 Chacha Dunham DIRECTOR CLINICAL APPLICATIONS, DIRECTOR CLINICAL APPLICATIONS-C Nurse Practitioner Active Start: November 09, 2024 Flor DIRECTOR CLINICAL APPLICATIONS, [place] Referring Provider Active St art: November 09, 2024 Team Status: Active Member Role/Relationship Status Dates Dr. Abimael Elizabeth DO Primary care physician Active Start: November 23, 2024 Chacha Dunham DIRECTOR CLINICAL APPLICATIONS, DIRECTOR CLINICAL APPLICATIONS-C Attending physician Active Start: November 23, 2024 Chacha Dunham DIRECTOR CLINICAL APPLICATIONS, DIRECTOR CLINICAL APPLICATIONS-C Nurse Practitioner Active Start: November 23, 2024 Flor DIRECTOR CLINICAL APPLICATIONS, [place] Referring Provider Active St art: November 23, 2024 Team Status: Active Member Role/Relationship Status Dates Dr. Abimael Elizabeth DO Primary care physician Active Start: December 01, 2024 Chacha Dunham DIRECTOR CLINICAL APPLICATIONS, DIRECTOR CLINICAL APPLICATIONS-C Nurse Practitioner Active Start: December 01, 2024 Flor DIRECTOR CLINICAL APPLICATIONS, [place] Referring Provider Active St art: December 01, 2024 ELVA Euceda Attending physician Active Sta rt: December 01, 2024 Team Status: Inactive Member Role/Relationship Status Dates Dr. Abimael Elizabeth DO Primary care physician Active Start: December 08, 2024 End: December 11, 2024 Flor DIRECTOR CLINICAL APPLICATIONS, [place] Referring Provider Active St art: December 08, 2024 End: December 11, 2024 ELVA Euceda Attending physician Active Sta rt: December 08, 2024 End: December 11, 2024 Team Status: Active Member Role/Relationship Status Dates Dr. Abimael Elizabeth DO Primary care physician Active Start: December 08, 2024 Flor DIRECTOR CLINICAL APPLICATIONS, [place] Referring Provider Active St art: December 08, 2024 ELVA Euceda Attending physician Active Sta rt: December 08, 2024 ELVA Euceda Nurse Practitioner Active Star t: December 08, 2024 Team Status: Active Member Role/Relationship Status Dates Dr. Abimael Elizabeth DO Primary care physician Active Start: December 22, 2024 Flor DIRECTOR CLINICAL APPLICATIONS, [place] Referring Provider Active St art: December [...] 05, 2025 End: January 10, 2025 Flor DIRECTOR CLINICAL APPLICATIONS, [place] Referring Provider Active St art: January 05, 2025 End: January 10, 2025 ELVA Euceda Attending physician Active Sta rt: January 05, 2025 End: January 10, 2025 Team Status: Active Member Role/Relationship Status Dates Dr. Abimael Elizabeth DO Primary care physician Active Start: January 05, 2025 Flor DIRECTOR CLINICAL APPLICATIONS, [place] Referring Provider Active St art: January [...] Attending Provider Active Start: January 14, 2025 Hearing Aid Technician Relationship Specialty Start Date End Date Abimael Elizabeth DO [address] [place] [phone] PCP - General 09/05/17 Flor Barfield DO [address] [place] [address] Surgeon Urology 12/19/22 Reji Maradiaga MD [address] [place] [address] Surgeon Urology 01/01/24 Hearing Aid Technician Relationship Specialty Start Date End Date Abimael Elizabeth DO [address] [place] [phone] PCP - General 09/05/17 Flor Barfield DO [address] [place] [address] Surgeon Urology 12/19/22 Reji Maradiaga MD [address] [place] [phone] Surgeon Urology 01/01/24 Hearing Aid Technician Relationship Specialty Start Date End Date Abimael Elizabeth DO [address] [place] [phone] PCP - General 09/05/17 Flor Barfield DO [address] [place] [address] Surgeon Urology 12/19/22 Reji Maradiaga MD [address] [place] [phone] Surgeon Urology 01/01/24 Hearing Aid Technician Relationship Specialty Start Date End Date Abimael Elizabeth DO [address] [place] [phone] PCP - General 09/05/17 Flor Barfield DO [address] [place] [address] Surgeon Urology 12/19/22 Reji Maradiaga MD [address] [place] [phone] Surgeon Urology 01/01/24 Hearing Aid Technician Relationship Specialty Start Date End Date Abimael Elizabeth DO [address] [place] [phone] PCP - General 09/05/17 Flor Barfield DO [address] [place] [address] Surgeon Urology 12/19/22 Reji Maradiaga MD [address] [place] [phone] Surgeon Urology 01/01/24 Abimael Moseley MD [address] [place] [address] Surgeon Urology 01/22/25 Hearing Aid Technician Relationship Specialty Start Date End Date Abimael Elizabeth DO [address] [place] [phone] PCP - General 09/05/17 Flor Barfield DO [address] [place] [address] Surgeon Urology 12/19/22 Reji Maradiaga MD [address] [place] [address] Surgeon Urology 01/01/24 Abimael Moseley MD [address] [place] [address] Surgeon Urology 01/22/25 Hearing Aid Technician Relationship Specialty Start Date End Date Abimael Elizabeth DO [address] [place] [phone] PCP - General 09/05/17 Flor Barfield DO [address] [place] [address] Surgeon Urology 12/19/22 Reji Maradiaga MD [address] [place] [phone] Surgeon Urology 01/01/24 Abimael Moseley MD [address] [place] [address] Surgeon Urology 01/22/25 Hearing Aid Technician Relationship Specialty Start Date End Date Abimael Elizabeth [address] [place] [phone] PCP - General 09/05/17 Flor Barfield DO [address] [place] [address] Surgeon Urology 12/19/22 Reji Maradiaga MD [address] [place] [phone] Surgeon Urology 01/01/24 Abimael Moseley MD [address] [place] [address] Surgeon Urology 01/22/25 Hearing Aid Technician Relationship Specialty Start Date End Date Abimael [place] [address] PCP - General 09/05/17 Flor Barfield DO [address] [place], [place] [id number] Surgeon Urology 12/19/22 Reji Maradiaga MD [address] [place] [phone] Surgeon Urology 01/01/24 Abimael Moseley MD [address] [place], [place] [phone] Surgeon Urology 01/22/25 Gio Monge MD [address] [place] [phone] Surgeon Urology 02/05/25 Team Status: Active Member Role/Relationship Status Dates Dr. Abimael Elizabeth DO Primary care physician Active Start: October 12, 2024 Chacha Dunham NP, DIRECTOR CLINICAL APPLICATIONS-C Attending physician Active Start: October 12, 2024 Chacha Dunham NP, DIRECTOR CLINICAL APPLICATIONS-C Nurse Practitioner Active Start: October 12, 2024 Susan Ray NP Referring Provider Active St art: October 12, 2024 Team Status: Active Member Role/Relationship Status Dates Dr. Abimael Elizabeth DO Primary care physician Active Start: October 26, 2024 Chacha Dunham NP, DIRECTOR CLINICAL APPLICATIONS-C Attending physician Active Start: October 26, 2024 Chacha Dunham NP, DIRECTOR CLINICAL APPLICATIONS-C Nurse Practitioner Active Start: October 26, 2024 Susan Ray NP Referring Provider Active St art: October 26, 2024 Team Status: Active Member Role/Relationship Status Dates Dr. Abimael Elizabeth DO Primary care physician Active Start: November 02, 2024 Chacha Dunham DIRECTOR CLINICAL APPLICATIONS, DIRECTOR CLINICAL APPLICATIONS-C Attending physician Active Start: November 02, 2024 Chacha Dunham DIRECTOR CLINICAL APPLICATIONS, DIRECTOR CLINICAL APPLICATIONS-C Nurse Practitioner Active Start: November 02, 2024 Flor DIRECTOR CLINICAL APPLICATIONS, [place] Referring Provider Active St art: November 02, 2024 Team Status: Inactive Member Role/Relationship Status Dates Dr. Abimael Elizabeth DO Primary care physician Active Start: November 09, 2024 End: November 10, 2024 Chacha Dunham DIRECTOR CLINICAL APPLICATIONS, DIRECTOR CLINICAL APPLICATIONS-C Attending physician Active Start: November 09, 2024 End: November 10, 2024 Flor DIRECTOR CLINICAL APPLICATIONS, [place] Referring Provider Active St art: November 09, 2024 End: November 10, 2024 Team Status: Active Member Role/Relationship Status Dates Dr. Abimael Elizabeth DO Primary care physician Active Start: November 09, 2024 Chacha Dunham DIRECTOR CLINICAL APPLICATIONS, DIRECTOR CLINICAL APPLICATIONS-C Attending physician Active Start: November 09, 2024 Chacha Dunham DIRECTOR CLINICAL APPLICATIONS, DIRECTOR CLINICAL APPLICATIONS-C Nurse Practitioner Active Start: November 09, 2024 Flor DIRECTOR CLINICAL APPLICATIONS, [place] Referring Provider Active St art: November 09, 2024 Team Status: Active Member Role/Relationship Status Dates Dr. Abimael Elizabeth DO Primary care physician Active Start: November 23, 2024 Chacha Dunham DIRECTOR CLINICAL APPLICATIONS, DIRECTOR CLINICAL APPLICATIONS-C Attending physician Active Start: November 23, 2024 Chacha Dunham DIRECTOR CLINICAL APPLICATIONS, DIRECTOR CLINICAL APPLICATIONS-C Nurse Practitioner Active Start: November 23, 2024 Flor DIRECTOR CLINICAL APPLICATIONS, [place] Referring Provider Active St art: November 23, 2024 Team Status: Active Member Role/Relationship Status Dates Dr. Abimael Elizabeth DO Primary care physician Active Start: December 01, 2024 Chacha Dunham DIRECTOR CLINICAL APPLICATIONS, DIRECTOR CLINICAL APPLICATIONS-C Nurse Practitioner Active Start: December 01, 2024 Flor DIRECTOR CLINICAL APPLICATIONS, [place] Referring Provider Active St art: December 01, 2024 ELVA Euceda Attending physician Active Sta rt: December 01, 2024 Team Status: Inactive Member Role/Relationship Status Dates Dr. Abimael Elizabeth DO Primary care physician Active Start: December 08, 2024 End: December 11, 2024 Flor DIRECTOR CLINICAL APPLICATIONS, [place] Referring Provider Active St art: December 08, 2024 End: December 11, 2024 ELVA Euceda Attending physician Active Sta rt: December 08, 2024 End: December 11, 2024 Team Status: Active Member Role/Relationship Status Dates Dr. Abimael Elizabeth DO Primary care physician Active Start: December 08, 2024 Flor DIRECTOR CLINICAL APPLICATIONS, [place] Referring Provider Active St art: December 08, 2024 ELVA Euceda Attending physician Active Sta rt: December 08, 2024 ELVA Euceda Nurse Practitioner Active Star t: December 08, 2024 Team Status: Active Member Role/Relationship Status Dates Dr. Abimael Elizabeth DO Primary care physician Active Start: December 22, 2024 Flor DIRECTOR CLINICAL APPLICATIONS, [place] Referring Provider Active St art: December 22, 2024 ELVA Euceda Attending physician Active Sta rt: December 22, 2024 ELVA Euceda Nurse Practitioner Active Star t: December 22, 2024 Team Status: Active Member Role/Relationship Status Dates Dr. Abimael Elizabeth DO Primary care physician Active Start: December 29, 2024 Flor DIRECTOR CLINICAL APPLICATIONS, [place] Referring Provider Active St art: December 29, 2024 ELVA Euceda Attending physician Active Sta rt: December 29, 2024 ELVA Euceda Nurse Practitioner Active Star t: December 29, 2024 Team Status: Inactive Member Role/Relationship Status Dates Dr. Abimael Elizabeth DO Primary care physician Active Start: January 05, 2025 End: January 10, 2025 Flor DIRECTOR CLINICAL APPLICATIONS, [place] Referring Provider Active St art: January 05, 2025 End: January 10, 2025 ELVA Euceda Attending physician Active Sta rt: January 05, 2025 End: January 10, 2025 Team Status: Active Member Role/Relationship Status Dates Dr. Abimael Elizabeth DO Primary care physician Active Start: January 05, 2025 Flor DIRECTOR CLINICAL APPLICATIONS, [place] Referring Provider Active St art: January 05, 2025 ELVA Euceda Nurse Practitioner Active Star t: January 05, 2025 Dr. Phuong Ballard MD Attending physician Active Start: January 05, 2025 Team Status: Active Member Role/Relationship Status Dates Dr. Abimael Elizabeth DO Primary care physician Active Start: January 12, 2025 Flor DIRECTOR CLINICAL APPLICATIONS, [place] Referring Provider Active St art: January 12, 2025 ELVA Euceda Attending physician Active Sta rt: January 12, 2025 ELVA Euceda Nurse Practitioner Active Star t: January 12, 2025 Team Status: Active Member Role/Relationship Status Dates Dr. Abimael Elizabeth DO Primary care physician Active Start: January 19, 2025 Flor DIRECTOR CLINICAL APPLICATIONS, [place] Referring Provider Active St art: January [...] physician Active Start: January 26, 2025 Flor DIRECTOR CLINICAL APPLICATIONS, [place] Referring Provider Active St art: January 26, 2025 ELVA Euceda Attending physician Active Sta rt: January 26, 2025 Team Status: Active Member Role/Relationship Status Dates Dr. Abimael Elizabeth DO Primary care physician Active Start: January 26, 2025 Flor DIRECTOR CLINICAL APPLICATIONS, [place] Referring Provider Active St art: January 26, 2025 ELVA Euceda Attending physician Active Sta rt: January 26, 2025 ELVA Euceda Nurse Practitioner Active Star t: January 26, 2025 Hearing Aid Technician Relationship Specialty Start Date End Date Abimael Elizabeth DO [address] [place] [phone] PCP - General 09/05/17 Flor Barfield DO [address] [place] [address] Surgeon Urology 12/19/22 Reji Maradiaga MD [address] [place] [address] Surgeon Urology 01/01/24 Abimael Moseley MD [address] [place] [address] Surgeon Urology 01/22/25 Gio Monge MD [address] [place] [phone] Surgeon Urology 02/05/25 Hearing Aid Technician Relationship Specialty Start Date End Date Abimael Elizabeth DO [address] [place] [phone] PCP - General 09/05/17 Flor Barfield DO [address] [place] [address] Surgeon Urology 12/19/22 Reji Maradiaga MD [address] [place] [phone] Surgeon Urology 01/01/24 Abimael Moseley MD [address] [place] [address] Surgeon Urology 01/22/25 Gio Monge MD [address] [place] [address] Surgeon Urology 02/05/25 Hearing Aid Technician Relationship Specialty Start Date End Date Abimael Elizabeth DO [address] [place] [phone] PCP - General 09/05/17 Flor Barfield DO [address] [place], [place] [phone] Surgeon Urology 12/19/22 Reji Maradiaga MD [address] [place] [address] Surgeon Urology 01/01/24 Abimael Moseley MD [address] [place], [place] [id number] Surgeon Urology 01/22/25 Gio Monge MD [address] [place] [phone] Surgeon Urology 02/05/25 Goals (unrecognized section and [...] - Provider: Nina Rojas, KARY) HYDROcodone-acetaminophe n (Eloy) 5-325 MG per tablet 1 tablet 1 [...] sedation for opioid reversal - MUST notify home connect lpn provider immediately after first dose, may give [...] BE BASED ON THE PRIMARY CLINICAL RECORDS. [facility]. provides no warranty or guarantee of the accuracy or completeness of information in this document.
[2025-04-10] MEDS: 0.9% Normal Saline (500mL Bag) 500 ML 1000 ML IV (20:27)
[2025-04-10 20:35] LABS: Hematocrit 39.7 % (40-54); Hemoglobin 12.8 g/dL (13.0-16.5); Immature Granulocytes Count 0.030 X10^3/uL (0.0-0.0); Mean Corp Hgb Conc 32.2 g/dL (32-36); Mean Corpuscular Volume 88.0 fL (80-94); Mean Platelet Vol. 10.0 fl (6.2-12.0); NRBC Flagged by Analyzer 0 % (0-5); Platelet Count 233 K/mm3 (150-450); RBC Distribution Width CV 13.2 % (11.6-14.6); RBC Distribution Width SD 42.6 fl (35.1-43.9); Red Blood Count 4.51 M/mm3 (4.6-6.2); White Blood Count 6.9 K/mm3 (4.4-11.0)
[2025-04-10 20:59] LABS: Pro- Brain NATRIURETIC PEPTIDE 1118 pg/mL (<=900); Troponin T High Sensitivity 15 ng/L (<=22)
[2025-04-10 21:15] LABS: Anion Gap 11 (7-18); BUN 25 mg/dL (4-19); BUN/Creat Ratio 15.8 RATIO (10-20); Calcium,Total 9.4 mg/dL (7.6-11.0); Carbon Dioxide 21.3 mmol/L (20.0-29.0); Chloride 108 mmol/L (96-106); Estimated Creatinine Clearance 67.51 ml/min (50-250); Glucose 95 mg/dL (70-99); Potassium 4.4 mmol/L (3.5-5.1)
[2025-04-10] MEDS: APIXABAN 5 MG TABLET PO (22:22)
[2025-04-10 23:01] LABS: Troponin T High Sens 2 HR 13 ng/L (<=22)
== END 2025-04-10 22:24 | disposition home or self-care (01) ==
PROVIDERS: Emergency Provider Emergency Medicine; PCP Family Medicine; Visit Provider Emergency Medicine
DX: R00.2 Palpitations (principal); I48.91 Unspecified atrial fibrillation; I10 Essential (primary) hypertension; Z87.891 Personal history of nicotine dependence; D64.9 Anemia, unspecified
CPT/HCPCS: 71045; 80048; 83880; 84484; 85025; 87631; 93005; 96360; 99284; A4216